=== PATIENT | male | born 1960 | race Caucasian/White ===

== ENCOUNTER → 2017-01-09 | Outpatient (CLI) | payer MEDICARE, MEDICAID ==
[~2017-01-09] MED LIST: ABILIFY10 MG PO; ACCUPRIL PO; ALBUTEROL-200 PUFFS/ IH; ALDACTONE 25MG25 MG PO; ALDACTONE 50MG50 MG PO; AMOXICILLIN500 M2 PO; ANTACID PO; APAP325 MG PO; ARIPIPRAZO10 MG/TABL PO; ARTIFICIAL TEAR15 M6 OP; ARTIFICIALS TEA30 ML OP; ASPIRIN 325MG325 MG PO; ASPIRIN 81MG TA81 MG PO; ATIVAN1 M1 PO; ATIVAN1 MG PO; BACTRIM DS 8001 TA1 PO; BENADRYL 25MG C25 MG PO; BUSPIRONE 5MG TA5 MG PO; CELEXA20 MG PO; CETIRIZINE10 MG PO; CIPRO 500MG TA500 MG PO; CIPROFLOXACIN500 MG PO; CITALOPRAM20 MG PO; CLARITIN 10MG T10 MG PO; CYCLOBENZAPRINE10 MG PO; DESYREL50 MG PO; DIFLUCAN200 MG PO; DIPHENHYDRAMINE25 M1 PO; DOCUSATE SODIU250 M1 PO; EFFIENT10 M2 PO; FISH OIL1000 MG PO; FLOMAX 0.4MG C0.4 MG PO; FLUTICASONE 50M16 GM; FUROSEMIDE40 MG; FUROSEMIDE40 MG PO; GERI-LANTA355 ML PO; HYDROCHLOROTH12.5 M1 PO; HYDROCODONE-APA1 TA1 PO; IBUPROFEN400 MG PO; IMDUR 30MG. TAB30 MG PO; IMODIUM A-D2 MG PO; IMODIUM2 MG PO; JANUVIA50 MG PO; KEFLEX 500MG.500 MG PO; KLOR-CON M2020 ME1 PO; LASIX 20MG. TAB20 MG PO; LASIX 40MG. TAB40 MG PO; LASIX40 MG PO; LEVOTHYROXINE0.05 M2 PO; LEVOTHYROXINE0.05 MG PO; LIPITOR40 MG PO; LOPERAMIDE2 MG PO; LORATADINE 10MG10 M1 PO; LOSARTAN POTASS25 MG PO; LOSARTAN POTASS50 MG PO; LOTRISONE CREAM15 GM TP; LOVAZA1 GM PO; MAG-OX 400MG T400 MG PO; MECLIZINE 25MG25 MG PO; METFORMIN 500M500 M1 PO; METFORMIN1000 MG PO; MICARDIS40 MG PO; MIRALAX(PO17 GM/1 PA PO; MIRALAX17 GM/DOSE PO; MIRALAX17 GM/PACK PO; MUPIROCIN2% TP; MYLANTA355 ML PO; NASONEX0.05 MG/AC NS; NITROGLYCERIN0.4 MG SL; NORCO 325 MG-51 TAB PO; NYSTATIN C30 GM/TUB1 TP; NYSTATIN CREAM;15 GM EX; PANTOPRAZOLE SO40 MG PO; POTASSIUM CHLO20 ME2 PO; POTASSIUM CHLORIDE 10 MEQ PO; PRILOSEC OTC20 MG PO; PROAIR HFA0.09 MG/AC IH; PROMETHAZINE HC25 M1 PO; ROBAFEN100 MG/5 M PO; ROMYCIN5 MG/GM OP; SEROQUEL 100MG100 MG PO; SEROQUEL XR50 MG PO; SIMVASTATIN40 MG PO; SYNTHROID 0.00.05 MG PO; TELMISARTAN20 MG PO; TINACTIN TP; TOVIAZ8 MG PO; TRAMADOL 50MG T50 MG PO; TRAMADOL 512 EACH/PA PO; TRAMADOL50 M1 PO; TRAZADONE HYDR100 MG PO; TRAZODONE 50MG50 MG; TRAZODONE100 MG PO; TRIAMTERENE AND1 TA1 PO; TYLENOL 8 HOUR650 MG PO; TYLENOL ES500 MG PO; VENTOLIN H0.09 MG/AC IH; WELLBUTRIN SR200 MG PO; WELLBUTRIN XL300 MG PO; ZYRTEC10 M2 PO; [UNRECOGNIZED DRUG - OTHER] PO
[2017-01-09 09:40] LABS: URINE BILIRUBIN - DIPSTICK NEGATIVE (NEG); URINE BLOOD NEGATIVE (NEG)
[2017-01-09 09:51] LABS: URINE SQUAMOUS CELLS OCC #/hpf (OCC)
== END ==
LOC: LAB 09:31
PROVIDERS: Emergency Medicine
DX: R06.02 Shortness of breath (principal); Z74.09 Other reduced mobility

== ENCOUNTER → 2017-04-07 | Outpatient (CLI) | payer MEDICARE, MEDICAID ==
[2017-04-07 21:19] LABS: URINE BILIRUBIN - DIPSTICK NEGATIVE (NEG); URINE BLOOD NEGATIVE (NEG)
[2017-04-07 22:13] LABS: URINE SQUAMOUS CELLS OCC #/hpf (OCC)
== END ==
LOC: LAB 21:01
PROVIDERS: Emergency Medicine
DX: N39.0 Urinary tract infection, site not specified (principal)

== ENCOUNTER → 2017-04-09 | Outpatient (CLI) | payer MEDICARE, MEDICAID ==
[2017-04-09 10:05] LABS: STOOL OCCULT BLOOD POSITIVE (NEG)
== END ==
LOC: LAB 09:14
PROVIDERS: Emergency Medicine
DX: D64.9 Anemia, unspecified (principal)
CPT/HCPCS: G0328

== ENCOUNTER → 2017-05-08 | Outpatient (CLI) | payer MEDICARE, MEDICAID ==
--- NOTE | 2017-05-10 08:47 | RADIOLOGY REPORT PS360 ---
UGI SERIES W/SMALL BOWEL COMPARISON: None HISTORY: Anemia, possible blood in stool TECHNIQUE: Fluoroscopy while swallowing barium FINDINGS: The patient cannot stand upright and the study was performed with the patient approximately 30 degrees upright on the radiographic table. The swallowing function and solid motility were normal. There is no hiatal hernia or reflux seen. The stomach is well-distended with barium and air and shows no intrinsic abnormality. The duodenal bulb and duodenal sweep appear normal. There is normal transit time of barium through the small bowel. There is a normal fold pattern of the small bowel. Palpation of the small bowel show no areas of tenderness. The terminal ileum was somewhat difficult to visualize due to overlapping loops of distal small bowel but no gross abnormality is noted. There are multiple surgical clips in the suprapubic area and overlying the symphysis pubis. IMPRESSION: Grossly normal upper GI series and small bowel follow-through.
== END ==
LOC: RAD 09:47
DX: D64.9 Anemia, unspecified (principal); R19.5 Other fecal abnormalities

== ENCOUNTER 2017-05-09 19:08 | Emergency (ER) | payer MEDICARE, MEDICAID ==
[~2017-05-09] VITALS: Ht 157.5 cm; Wt 113.4 kg
[2017-05-09 19:45] LABS: URINE BILIRUBIN - DIPSTICK NEGATIVE (NEG); URINE BLOOD NEGATIVE (NEG)
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
[2017-05-09 21:02] LABS: LYMPH # 1.9 K/mm3 (0.7-4.5); LYMPH % 13.5 % (10-50)
[2017-05-09 21:09] LABS: HEMOGLOBIN 10.1 g/dL (14.1-18.0)
[2017-05-09] MEDS ORDERED: CIPRO 500MG TA500 MG PO (22:12)
[2017-05-09 22:27] VITALS: BP 119/64
--- NOTE | 2017-05-10 08:36 | RADIOLOGY REPORT PS360 ---
CT ABD PELVIS W/O CONTRAST COMPARISON: CT scan abdomen pelvis 01/23/2015 HISTORY: Generalized abdominal pain, anemia TECHNIQUE: Multiaxial scans obtained from hemidiaphragms the pelvic floor and were performed without IV or oral contrast. Sagittal and coronal reformats were evaluated as well. FINDINGS: The lower lung mijares are clear. Cardiac size is normal, there is coronary artery calcification. There is borderline hepatomegaly but no focal lesions are seen. Stomach spleen [place] gallbladder appear grossly normal. The adrenal glands are normal. The kidneys are lower limits of normal in size with a tiny exophytic and likely solid nodule arising from the lower pole left kidney measuring 0.9 cm in size and consider follow-up ultrasound for better evaluation. There is moderate barium remaining in the colon from the recent upper GI series causing streak artifact crossing the abdomen. The small bowel appears grossly normal. I do not definitely identify the appendix but there are no pericecal inflammatory changes. The bladder is partially decompressed. There are surgical clips in the suprapubic location likely from previous hernia repair surgery. There is a tiny umbilical hernia containing fat only. There is very minor likely old compression of T8 vertebral body. IMPRESSION: 1. Tiny and likely solid nodule lower pole left kidney and suggest follow-up ultrasound. 2. Somewhat less than satisfactory evaluation of small bowel and colon in view of the retained barium within the colon causing streak artifact but I can identify no obvious etiology for the patient's anemia on this study. I basically agree with the [facility] report.
--- OUTSIDE RECORDS SUMMARY | 2017-05-17 17:14 | External Medical Summary Rpt | CCD ---
Author Author , GRAHAM Organization GRAHAM Address Unknown Phone [email or web address] Care Team Providers Care Range Management Specialist Name Role Phone [facility], [facility] Unavailable Unavailable [facility], [facility] Unavailable Unavailable RADHA BOY, RADHA Unavailable Unavailable BOY [facility] Unavailable Unavailable PHYSICANS M, [facility] M LEAL, LEAL Unavailable Unavailable [facility] Unavailable Unavailable [facility]OC[facility], [facility] Unavailable Unavailable ASSOCI[facility], [facility] DESMOND CARLOS, Unavailable Unavailable DESMOND CARLOS ANJUR-KAPALI DAY, Unavailable Unavailable ANJUR-KAPALI DAY MAGDALENA FAD, MAGDALENA FAD Unavailable Unavailable [facility] Un[facility] [place] [place] BEINEKE GILMA, BEINEKE Unavailable Unavailable GILMA BESSON, BESSON Unavailable Unavailable BESSON JEANIE, BESSON Unavailable Unavailable JEANIE BESSON JEANIE, BESSON Unavailable Unavailable JEANIE ORDONEZ, ORDONEZ Unavailable Unavailable ORDONEZ ALL, ORDONEZ ALL Unavailable Unavailable BRAUDIS JAM, BRAUDIS Unavailable Unavailable JAM BRAUDIS JAM, BRAUDIS Unavailable Unavailable JAM [facility] Unavailable Unavailable SERVICE, [facility] Unavailable Unavailable SERVICE, [facility] DOBSON LAR, DOBSON LAR Unavailable Unavailable Sheridan GEORGE MD Unavailable Unavailable [facility], Sheridan GEORGE MD [facility] Unavailable Unavailable CONSULTANTS O, [facility] Unavailable Unavailable [facility], [facility] CHIPPS SUNITHA & Unavailable Unavailable DUBILIER, [facility] SUNITH[facility] DUBILIER [facility], Unavailable Unavailable [facility] Unavailable Unavailable [facility], [facility] Unavailable Unavailable [facility], [facility] DOM IVERSON MERLE, ZAYRA MERLE Unavailable Unavailable DEL JR MARCY, DEL Unavailable Unavailable JR MARCY [facility] Unavailable Unavailable [facility], [facility] ALEISHA KIERAN, Unavailable Unavailable ALEISHA KIERAN MARIANNE VISION, Unavailable Unavailable MARIANNE VISION QUINTERO ERNST, Unavailable Unavailable QUINTERO ERNST QUINTERO ERNST, Unavailable Unavailable QUINTERO ERNST [facility], Unavailable Unavailable [facility] VINH DYLAN, Unavailable Unavailable VINH DYLAN [facility] Unavailable Unavailable LLC, [facility] Unavailable Unavailable DIAGNOSTIC SE, [facility] Unavailable Unavailable [facility]AGNOSTIC [facility], [facility] FALLUJI TATUM, FALLUJI Unavailable Unavailable [facility] Unavailable Unavailable [place] [facility], [facility] [place] [facility] Unavailable Unavailable SERVBLUEGRAS, [facility] Unavailable Unavailable TRANSPORTATION SER, [facility] AURY, AURY Unavailable Unavailable AURY ARMANDO, AURY Unavailable Unavailable ARMANDO AURY ARMANDO, AURY Unavailable Unavailable ARMANDO [facility] Unavailable Unavailable INC, [facility] Unavailable Unavailable H[facility]PITAL, [facility] Unavailable Unavailable HOSPITAL P, [facility] HEEB CHR, HEEB CHR Unavailable Unavailable [facility], [facility] Unavailable Unavailable [facility], [facility] Unavailable [facility]available [facility], Unavailable Unavailable [facility] Unavailable Unavailable IMAGING ASS, [facility] KIERRA THO, KIERRA THO Unavailable Unavailable [facility] BRYANT, BRYANT Unavailable Unavailable BRYANT DEUCE, BRYANT Unavailable Unavailable DEUCE CHRIS EHSAN, CHRIS Unavailable Unavailable EHSAN HAROLDO JR DWI, HAROLDO Unavailable Unavailable JR DWI HAROLDO JR DWI, HAROLDO Unavailable Unavailable JR DWI [facility] Unavailable Unavailable 11, [facility], Unavailable Unavailable [facility] Unavailable Unavailable ACTION, [facility] Kenya Patrick MD, Unavailable Unavailable Kenya BURRIS, Unavailable Unavailable ELENI KNOWLES JAM, Unavailable Unavailable KNOWLES JAM BENAVIDES, BENAVIDES Unavailable Unavailable BENAVIDES JAM, Unavailable Unavailable BENAVIDES JAM [facility] Unavailable Unavailable [facility], [facility] Unavailable Unavailable MEDICAL, [facility] Unavailable Unavailable SERVICE, [facility] MONOHAN RONALD, MONOHAN Unavailable Unavailable RONALD SIEGEL JUAQUIN, SIEGEL Unavailable Unavailable JUAQUIN ONDINA, ONDINA Unavailable Unavailable ONDINA SHA, ONDINA Unavailable Unavailable SHA NEILS JONATHAN, NEILS JONATHAN Unavailable Unavailable [facility] Unavailable Unavailable [facility], [facility] Unavailable Unavailable [facility], [facility] Unavailable Unavailable [facility]ATORY, [facility], Unavailable Unavailable PLL[facility], [facility] RODRIGUEZ, III OANH, Unavailable Unavailable RODRIGUEZ, III OANH PETTEY, PETTEY Unavailable Unavailable PETTEY JAM, PETTEY Unavailable Unavailable JAM [facility], Unavailable [facility]available [facility], Unavailable Unavailable [facility] PUND CHR, PUND CHR Unavailable Unavailable MIRA MARCY, MIRA Unavailable Unavailable MARCY [facility], Unavailable Unavailable [facility] MEREDITH, MEREDITH Unavailable Unavailable MEREDITH MAT, Unavailable Unavailable MEREDITH MAT EBONI Rose, EBONI Rose Unavailable Unavailable SKRIP JR., SKRIP JR. Unavailable Unavailable SKRIP JR. SELVIN, SKRIP Unavailable Unavailable JR. SELVIN [facility] Unavailable Unavailable [facility], [facility] Un[facility] Unavailable TREATMENT A, [facility] Unavailable Unavailable EMERGENCY PH[facility], [facility]available [facility]available [facility], Unavailable Unavailable [facility] Unavailable Unavailable CLINIC, [facility] CL[facility]IC [facility] Unavailable Unavailable SURGERY C, [facility] Unavailable Unavailable HOSPITALS, [facility], Unavailable Unavailable [facility] WEHRMAN III MARCY, Unavailable Unavailable WEHRMAN III MARCY ZEKE BAR, ZEKE BAR Unavailable Unavailable ZEKE BAR, ZEKE BAR Unavailable Unavailable KALINA A, Unavailable Unavailable KALINA A Purpose Continuity of Care Document - 12-28-2010 through 2016 Problems Code Diagnosis DOS Provider Status D649 ANEMIA 04-11-2017 [facility] N390 URINARY 04-07-2017 [facility] TRACT [facility] INFECTION INC SITE NOT SPECIFIED I2510 ASHD KAKTOVIK 04-06-2017 [facility] COR[facility]ALTH[facility]ARE ARTERY W/O ANGINA PECTORIS R627 ADULT 04-06-2017 [facility] FAILURE TO HEALTH THRIVE ASSOCIATES G4733 OBSTRUCTIVE 04-04-2017 [facility] SLEEP [facility] APNEA ADULT INC PEDIATRIC I509 HEART 04-04-2017 [facility] FAILURE [facility] UNSPECIFIED INC J449 CHRONIC 04-04-2017 [facility] OBSTRUCTIVE [facility] PULMONARY INC DISEASE UNS R0602 SHORTNESS 04-04-2017 [place] [facility] R1310 DYSPHAGIA 04-04-2017 [place] [facility]PEC[facility]IED [facility] IM[facility]ING ASS R5383 OTHER 04-04-2017 [facility] R942 ABNORMAL 04-04-2017 [facility] RESULTS OF [facility] PULMONARY INC FUNCTION STUDIES E162 HYPOGLYCEMI 03-27-2017 [facility] A HEALTH UNSPECIFIED ASSOCIATES Y78325 OTHER LONG 03-21-2017 [facility] CURRENT ASSOCIATES DRUG THERAPY B351 TINEA 02-05-2017 SPECIAL UNGUIUM CARE PODIATRY OF YAMIL K39149 PAIN IN 02-05-2017 SPECIAL RIGHT TOES CARE PODIATRY OF YAMIL Q52459 PAIN IN 02-05-2017 SPECIAL LEFT TOES CARE PODIATRY OF YAMIL R69 ILLNESS 01-16-2017 [facility] UNSPECIFIED TRANSPORTAT ION SER Z9989 DEPENDENCE 01-16-2017 [place] [facility] ON OTHER SERV ENABLING SendRR MACHINES & DEVICES C86281 PAIN IN 01-13-2017 [facility] RIGHT KNEE LLC R14668 PAIN IN 01-13-2017 [facility] RIGHT LEG LLC B45910 PAIN IN 01-13-2017 [facility] RIGHT LOWER LLC LEG E119 TYPE 2 01-09-2017 [facility] DIABETES HEALTH MELLITUS ASSOCIATES WITHOUT COMPLICATIO NS I10 ESSENTIAL 01-09-2017 [facility] PRIMARY HEALTH HYPERTENSIO ASSOCIATES N R4182 ALTERED 01-09-2017 [facility] MENTAL HEALTH STATUS ASSOCIATES UNSPECIFIED R531 WEAKNESS 01-09-2017 [facility] Z7409 OTHER 01-09-2017 [facility] REDUCED [facility] MOBILITY INC I517 CARDIOMEGAL 01-08-2017 [facility] Y LLC [id number] PAIN IN 01-04-2017 [place] RIGHT WRIST MEDICAL IMAGING ASS M7989 OTHER 01-04-2017 [facility] SPECIFIED MEDICAL SOFT TISSUE IMAGING ASS DISORDERS R609 EDEMA 01-04-2017 [facility] UNSPECIFIED [facility] INC I05235 PAIN IN 01-01-2017 [facility] RIGHT LLC FOREARM M7541 IMPINGEMENT 12-28-2016 [facility] SYNDROME PHYSICIANS OF RIGHT GROUP SHOULDER E6601 MORBID 12-19-2016 [facility] SEVERE PHYSICIANS OBESITY DUE GROUP TO EXCESS CALORIES E785 HYPERLIPIDE 12-19-2016 [facility] OSMANY PHYSICIANS UNSPECIFIED GROUP I119 HYPERTENSIV 12-19-2016 [facility] E HEART PHYSICIANS DISEASE GROUP WITHOUT HEART FAILURE N3000 ACUTE 12-12-2016 [facility] HEMATURIA I272 OTHER 11-27-2016 [facility] PULMONARY INC HYPERTENSIO N N3001 ACUTE 11-21-2016 [place] CYSTITIS [facility] P HEMATURIA Q49465 PAIN IN 11-16-2016 [place] RIGHT MEDICAL SHOULDER IMAGING ASS K140 GLOSSITIS 11-02-2016 [facility] PHYSICIANS GROUP R918 OTHER 10-11-2016 [facility] NONSPECIFIC LLC ABNORMAL FINDING OF LUNG FIELD R0682 TACHYPNEA 09-19-2016 [facility] NOT PHYSICIANS ELSEWHERE GROUP CLASSIFIED R072 PRECORDIAL 09-04-2016 [facility] PAIN PHYSICIANS, [facility] R0789 OTHER CHEST 09-04-2016 [facility] PA[facility] AMBULANCE SERVICE R079 CHEST PAIN 09-04-2016 [place] UNSPECIFIED [facility]ICAL IMAGING ASS Z955 PRESENCE OF 09-04-2016 [place] CORONARY [facility] P IMPLANT & GRAFT K19444 MECHANICAL 08-24-2016 [facility] PTOSIS OF SERV RIGHT FOUNDATION EYELID [id number] DERMATOCHAL 08-24-2016 [place] [facility] ASIS OF SERV RIGHT EYE FOUNDATION UNSPECIFIED EYELID H53632 DERMATOCHAL 08-24-2016 [place] [facility] OF SERV LEFT EYE FOUNDATION UNSPECIFIED EYELID G4730 SLEEP APNEA 06-07-2016 [facility] MEDICAL SERV UNSPECIFIED FOUNDATION E876 HYPOKALEMIA 05-29-2016 [facility] K219 GASTRO-ESOP 04-25-2016 [facility] REFLUX [facility] DISEASE [facility] P WITHOUT ESOPHAGITIS O07464 SPONDYLOSIS 04-04-2016 [place] W/O MEDICAL MYELOPATH/R IMAGING ASS ADICULOPATH Y CERV RGN M5032 OTH CERV 04-04-2016 [place] DISC MEDICAL DEGENERATIO IMAGING ASS N MID-CERVICA L REGION M542 CERVICALGIA 04-04-2016 [facility] M545 LOW BACK 04-04-2016 [place] PAIN MEDICAL IMAGING ASS M546 PAIN IN 04-04-2016 [place] THORACIC MEDICAL SPINE IMAGING ASS V188ALZ UNSPECIFIED 04-04-2016 [place] INJURY OF MEDICAL NECK IMAGING ASS INITIAL ENCOUNTER M3453JN UNSPECIFIED 04-04-2016 [place] INJURY MEDICAL LOWER BACK IMAGING ASS INITIAL ENCOUNTER K449 DIAPHRAGMAT 03-03-2016 [place] IC HERNIA [facility] W/O HOSPITAL P OBSTRUCTION OR GANGRENE S35413 PERSONAL 03-03-2016 [place] [facility] P DEPENDENCE I208 OTHER FORMS 02-25-2016 [facility] OF ANGINA PHYSICIANS PECTORIS GROUP U59186 ASHD KAKTOVIK 02-25-2016 [facility] COR ART PHYSICIANS W/UNSTABLE GROUP ANGINA PECTORIS E662 MORBID 02-21-2016 [facility] W/ALVEOLAR HYPOVENTILA TION T59553 [facility] KAKTOVIK 02-21-2016 [facility] ANGINA PECTORIS M654 RADIAL 02-16-2016 [facility] STYLOID [facility] TENOSYNOVIT INC IS DE QUERVAIN F83964 OTHER 02-16-2016 [facility] SYNOVITIS [facility] AND INC TENOSYNOVIT IS RIGHT HAND I209 ANGINA 12-08-2015 [place] PECTORIS REGIONAL UNSPECIFIED MEDICAL K98047 ASHD KAKTOVIK 12-08-2015 [facility] COR ART PHYSICIANS W/OTH FORMS GROUP ANGINA PECTORIS R0600 DYSPNEA 11-29-2015 [facility] UNSPECIFIED [facility] HOS[facility] INC A622A4H CONCUSSION 11-20-2015 [facility] W/LOC 30 [facility] P INITIAL ENCOUNTER [id number] UNSPECIFIED 11-20-2015 [facility] INJURY OF MEDICAL HEAD IMAGING ASS INITIAL ENCOUNTER J046ZKI STRAIN 11-20-2015 [facility] MUSCLE [facility] P NECK LEVL INIT ENC S36112A CONTUSION 11-20-2015 [facility] UNS BACK [facility] P INITIAL ENCOUNTER Z043 ENCOUNTER 11-20-2015 [place] EXAM & MEDICAL OBSERVATION IMAGING ASS FOLLOW OT ACCIDENT R339 RETENTION 07-12-2015 AUGUSTINSON JEANIE OF URINE UNSPECIFIED Q67960 PAIN IN 06-30-2015 [place] LEFT MEDICAL FINGERS IMAGING ASS G0971JK UNSPECIFIED 06-30-2015 [facility] INJURY LT MEDICAL WRIST HAND IMAGING ASS FINGERS INITIAL B353 TINEA PEDIS 06-08-2015 [facility] INC 41768 OBSTRUCTIVE 05-04-2015 [facility] [place] [address] UNSPEC HTN 05-04-2015 [facility] HEART LAR DISEASE CONSULTANTS WITHOUT O HEART FAIL 21838 COR 05-04-2015 [facility] ATHEROSLERO [facility] UNSPEC INC TYPE VESSEL KAKTOVIK/MAHSA T 4160 PRIMARY 05-04-2015 [facility] PULMONARY LAR HYPERTENSIO CONSULTANTS N O 4168 OTHER 05-04-2015 [facility] CHRONIC [facility] PULMONARY INC HEART DISEASES 496 CHRONIC 05-04-2015 [facility] AIRWAY [facility] OBSTRUCTION INC NEC 08976 05-04-2015 [facility] ION SER V7284 UNSPECIFIED 05-04-2015 [facility] PRE-OPERATI INC VE EXAMINATION 3699 UNSPECIFIED 04-28-2015 [facility] LOSS 34126 UNSPECIFIED 04-28-2015 [facility] EYELID V7283 OTHER 04-28-2015 [facility] PRE-OPERATI VE EXAMINATION 63686 ACUTE 02-16-2015 [facility] RESPIRATORY FAILURE 4111 INTERMEDIAT 01-25-2015 [facility] E CORONARY LAR SYNDROME CONSULTANTS O 4293 CARDIOMEGAL 01-23-2015 [place] Y [facility] 5920 CALCULUS OF 01-23-2015 [facility] KIDNEY [facility] 35045 UNSPECIFIED 01-23-2015 [place] RETENTION MEDICAL OF URINE IMAGING ASS 43377 ABDOMINAL 01-23-2015 [place] PAIN RIGHT MEDICAL LOWER IMAGING ASS QUADRANT 79163 PAIN IN 01-03-2015 [place] JOINT MEDICAL PELVIC IMAGING ASS REGION AND THIGH 38710 DISPLCMT 01-03-2015 [place] THOR MEDICAL INTERVERT IMAGING ASS DISC WITHOUT MYELOPATHY 7231 CERVICALGIA 01-03-2015 [facility] 7241 PAIN IN 01-03-2015 [place] THORACIC MEDICAL SPINE IMAGING ASS 35347 CHEST PAIN 01-03-2015 [place] UNSPECIFIED [facility]ICAL IMAGING ASS 48591 HYPERTENSIV 12-28-2014 [facility] E HEART [facility] DISEASE INC UNSPEC W/HEART FAIL 4280 CONGESTIVE 12-28-2014 [facility] HEART [facility] FAILURE INC UNSPECIFIED 94866 ESOPHAGEAL 12-28-2014 [facility] REFLUX [facility] INC 36713 SHORTNESS 12-28-2014 [place] OF BREATH MEDICAL IMAGING ASS 69279 OTHER 12-18-2014 [facility] DYSPNEA AND [place] [address] MECHANICAL 04-01-2014 [place] [facility] 2449 UNSPECIFIED 03-18-2014 [facility] HYPOTHYROID INC ISM 77188 PANNUS 02-18-2014 [facility] 5950 ACUTE 12-18-2013 [place] CYSTITIS [facility] P 01217 NOCTURNAL 12-18-2013 [place] ENURESIS [facility] P 47137 OTHER 11-24-2013 [facility] BEATRIZ MUCOPURULEN T CONJUNCTIVI TIS 46434 UNSPECIFIED 10-02-2013 [place] URINARY [facility] P E 3831 CHRONIC 09-05-2013 [place] MASTOIDITIS MEM HOSP INC 3839 UNSPECIFIED 09-05-2013 [facility] HOSP MASTOIDITIS INC 80727 UNSPECIFIED 09-05-2013 [place] OTALGIA [facility] INC 470 DEVIATED 09-05-2013 [place] NASAL MEDICAL SEPTUM IMAGING ASS 58236 OTHER 09-05-2013 [place] DISEASES OF MEDICAL NASAL IMAGING ASS CAVITY AND SINUSES 81236 ARTHRALGIA 09-05-2013 [facility] OF [facility]OS[facility] TEMPOROMAND INC IBULAR JOINT 70371 PAIN IN 08-15-2013 [facility] JOINT, PHYSICIANS FOREARM GROUP 65412 PAIN IN 08-15-2013 [place] JOINT, MEM [facility] LOWER LEG INC 36425 PLICA 08-15-2013 [facility] SYNDROME PHYSICIANS GROUP 3540 CARPAL 06-23-2013 [place] TUNNEL [facility] H[facility] SYNDROME INC V5869 LONG-TERM 06-23-2013 [place] (CURRENT) [facility] USE OF INC OTHER MEDICATIONS 2724 OTHER AND 05-23-2013 [facility] P HYPERLIPIDE OSMANY 5180 PULMONARY 05-23-2013 [place] COLLAPSE [facility] ASS 32852 ACUTE 05-08-2013 KNOW[facility] FOLLICULAR JAM CONJUNCTIVI TIS 38849 CONTACT AND 05-08-2013 [facility] ALLERGIC JAM DERMATITIS OF EYELID 85858 VITREOUS 05-08-2013 EL[facility] DEGENERATIO JAM N 3688 OTHER 04-16-2013 [facility] SPECIF[facility]UAL [facility] [place] DISTURBANCE S 7820 DISTURBANCE 04-16-2013 [facility] OF SKIN NEUROLOGY SENSATION [facility] [place] 1101 DERMATOPHYT 04-11-2013 RAMÍREZ BURRIS OSIS OF NAIL 37045 ATHEROSCLER 04-11-2013 RAMÍ[facility] BURRIS OSIS K[place]OVIK ART EXTREMITIES UNSPEC 7011 ACQUIRED 04-11-2013 RAMÍREZ BURRIS KERATODERMA 7295 PAIN IN 04-11-2013 RAMÍREZ BURRIS SOFT TISSUES OF LIMB 89826 SPONDYLOSIS 03-19-2013 [place] UNSPEC MEDICAL SITE W/O IMAGING ASS MENTION MYELOPATHY 7238 OTHER 03-19-2013 [place] SYNDROMES MEDICAL AFFECTING IMAGING ASS CERVICAL REGION 55785 DIAB W/O 02-13-2013 [facility] COMP TYPE [facility] II/UNS NOT INC STATED UNCNTRL 71432 BARRETTS 02-13-2013 [facility] ESOPHAGUS SUNITHA & DUBILIER 7871 HEARTBURN 02-13-2013 [facility] INC 38879 ONYCHIA AND 02-06-2013 [facility] PARONYCHIA AND ANKLE OF TOE CENTER 7030 INGROWING 02-06-2013 [facility] NAIL AND ANKLE CENTER 340 MULTIPLE 01-30-2013 [facility] 4149 UNSPECIFIED 01-30-2013 [place] CHRONIC [facility]ITAL HEART DISEASE 55513 OTHER 01-30-2013 [place] CONVULSIONS [facility] 47587 UNSPECIFIED 01-30-2013 [place] SLEEP [facility] [phone] 01-16-2013 [place] HEMATURIA, [facility] 782.0 782.0 SKIN 01-16-2013 [place] SENSATION [facility] DISTURB Hospital 786.05 786.05 01-16-2013 [place] SHORTNESS [facility] Hospital 79151 HEMATURIA 01-15-2013 [facility] P 39915 ABDOMINAL 01-15-2013 [facility] PAIN, AMBULANCE UNSPECIFIED SERVICE SITE 48240 PUNCTATE 01-08-2013 [facility] N EMERGENCY PHYSI 35092 BLEPHARITIS 01-08-2013 [facility] UNSPECIFIED V7644 SPECIAL 11-13-2012 COMBINED SCREENING PHYSICIANS MALIGNANT LA NEOPLASM OF PROSTATE 5990 URINARY 11-11-2012 COMBINED TRACT PHYSICIANS INFECTION LA SITE NOT SPECIFIED 4019 UNSPECIFIED 10-28-2012 [facility] ESSENTIAL CARDIOLOGY HYPERTENSIO CLINIC N 63630 CORONARY 10-28-2012 [facility] ATHEROSCLER CARDIOLOGY OSIS [facility] CLINIC CORONARY ARTERY 97558 PAIN IN 10-27-2012 [facility] JOINT, [place] [address] PAIN IN 10-27-2012 [facility] JOINT, MOBILE UPPER ARM DIAGNOSTIC SE 7823 EDEMA 09-19-2012 BRAUDIS JAM 21997 DIVERTICULO 08-08-2012 [facility] SIS OF [facility]OS[facility] COLON INC 5693 HEMORRHAGE 08-08-2012 [facility] OF RECTUM [facility] AND ANUS INC V160 FM HX 08-01-2012 C ANTONETTE MALIGNANT DORIS NEOPLASM PSC GASTROINTES TINAL TRACT V7651 SPECIAL 08-01-2012 C ANTONETTE SCREENING DORIS FOR PSC MALIGNANT NEOPLASMS COLON 4139 OTHER AND 03-25-2012 HAROLDO MARTINEZ UNSPECIFIED DWI ANGINA PECTORIS 5533 DIAPHRAGMAT 03-10-2012 [place] MARTHA W/O MEDICAL MENTION IMAGING ASS OBSTRUCTION /GANGREN 5718 OTHER 03-10-2012 [place] CHRONIC MEDICAL NONALCOHOLI IMAGING ASS C LIVER DISEASE 5939 UNSPECIFIED 03-10-2012 [place] DISORDER MEDICAL OF KIDNEY IMAGING ASS AND URETER 7881 DYSURIA 03-07-2012 [facility] INC 4589 UNSPECIFIED 03-04-2012 WEHRMAN III MARCY HYPOTENSION 5849 ACUTE 03-04-2012 WEHRMAN III KIDNEY MARCY FAILURE UNSPECIFIED 7224 DEGENERATIO 01-25-2012 [place] N OF MEDICAL CERVICAL IMAGING ASS INTERVERTEB RAL DISC 7842 SWELLING 01-25-2012 WEHRMAN III MASS OR MARCY LUMP IN HEAD AND NECK 7856 ENLARGEMENT 01-25-2012 [place] OF LYMPH MEDICAL NODES IMAGING ASS 41913 DYSPHAGIA 01-25-2012 [facility] UNSPECIFIED AMBULANCE SERVICE 1122 CANDIDIASIS 01-11-2012 [facility] MARCY OF OTHER UROGENITAL SITES 01511 OTHER 01-11-2012 [facility] CANDIDIASIS [facility] OF OTHER INC SPECIFIED SITES 7912 HEMOGLOBINU 01-11-2012 [facility] SH[facility]ON AMBULANCE SERVICE 09096 NONSPECIFIC 09-11-2011 [facility] BAR ABNORMAL ELECTROCARD IOGRAM 46537 HYPERSOMNIA 07-18-2011 [facility] WITH SLEEP ERNST APNEA UNSPECIFIED 19642 ABDOMINAL 07-04-2011 [facility] PAIN, AMBULANCE PERIUMBILIC SERVICE 6010 ACUTE 07-03-2011 [facility] ARMANDO PROSTATITIS 6019 UNSPECIFIED 07-03-2011 [facility] HOSP PROSTATITIS INC 79113 ASTHMA, 06-14-2011 BESSON JEANIE UNSPECIFIED , UNSPECIFIED STATUS 52953 OTHER CHEST 06-14-2011 [facility] JEANIE PAIN 74105 OTHER 06-13-2011 [place] NONSPECIFIC MEDICAL ABNORMAL IMAGING ASS FINDING OF LUNG FIELD 33854 MORBID 05-31-2011 [facility] MED[facility] OBESITY SERV FOUNDATIO 4778 ALLERGIC 05-31-2011 ID MEDICAL RH[facility] SERV DUE TO FOUNDATIO OTHER ALLERGEN [id number] APNEA 05-31-2011 [facility] 7019 UNSPECIFIED 05-19-2011 [facility] HYPERTROPHI LABORATORY C&ATROPHIC CONDITION SKIN 5210 DENTAL 05-16-2011 THE IMPLANT CARIES & ORAL SURGERY C 27275 UNSPECIFIED 05-08-2011 [facility] BLEPHAROCON JUNCTIVITIS 7862 COUGH 04-26-2011 [employer] 52192 UNSPECIFIED 03-30-2011 [facility] [place] CONJUNCTIVI URGENT TIS TREAT 26442 PAIN IN 03-30-2011 [facility], HAND [facility]BILE DIAGNOSTIC SE 6961 OTHER 03-23-2011 [facility] [place] PSORIASIS URGENT AND SIMILAR TREATMENT A DISORDERS 92101 OBESITY, 03-12-2011 [facility] [place] UNSPECIFIED URGENT TREATMENT A 72188 INSOMNIA 03-12-2011 [place] UNSPECIFIED URGENT TREATMENT A 514 PULMONARY 03-02-2011 [facility] AND DIAGNOSTIC HYPOSTASIS SE 7242 LUMBAGO 02-25-2011 [place] URGENT TREATMENT A 7245 UNSPECIFIED 02-10-2011 [facility] V771 SCREENING 02-10-2011 [facility] DI[facility]ET[facility] [place] PS MELLITUS 5968 OTHER 12-28-2010 [facility] [place] SPECIFIED RADIOLOGY DISORDERS OF BLADDER 49011 DIARRHEA 12-28-2010 [facility] Allergies, Adverse Reactions, Alerts Type Drug Allergy Adverse Reaction to Substance Substance Reaction Severity Nitroglycerin NA-NAUSEA Mild Morphine NA-NAUSEA Mild Clinical Alert Notifications Alert Diabetes: no eye exam in the last 365 days Diabetes: no influenza vaccine in the last 365 days Medications Na ND Rx Da Fi Fi Am Da Di Ph RX Ph St me C No te ll ll ou ys ag ar # ys at rm s nt no ma ic us Or Da si cy ia de te s n re d SM 49 10 10 0 29 1 ME 15 GA Ac 34 -0 -0 60 D 08 IN ti MA 80 6- 6- .0 CA 65 EY ve GN 50 20 20 00 RE 32 ES 44 17 17 GA IU 9 PH CH M AR AE CI MA L TR CY S AT E LL SO C BRYAN TI ON ST 00 03 10 0 30 30 ME 15 GA Ac OO 53 -1 -0 0. D 04 IN ti L 61 9- 2- 00 CA 39 EY ve SO 06 20 20 0 RE 09 FT 41 17 17 GA EN 0 PH CH ER AR AE MA L 25 CY S 0 MG LL C SO FT GE L LO 00 03 10 0 30 30 ME 15 GA Ac RA 78 -1 -0 0. D 04 IN ti TA 15 9- 2- 00 CA 39 EY ve DI 07 20 20 0 RE 10 NE 70 17 17 GA 1 PH CH 10 AR AE MA L MG CY S TA LL BL C ET BRYAN 00 03 09 0 30 7 ME 15 GA Ac BR 90 -1 -2 0. D 04 IN ti IC 46 8- 9- 00 CA 01 EY ve AT 32 20 20 0 RE 54 IN 94 17 17 GA G [address] AR AE US MA L CY S 0. 5% LL C EY E DR PS 00 03 09 0 30 30 ME 15 GA Ac PI 90 -1 -2 0. D 00 IN ti RI 46 9- 6- 00 CA 60 EY ve N 28 20 20 0 RE 67 81 88 17 17 GA 9 PH CH MG AR AE MA L CH CY S EW AB LL LE C TA BL ET AC 00 03 09 0 35 15 ME 14 GA Ac ID 90 -0 -1 50 D 96 IN ti 47 4- 5- .0 CA 35 EY ve GO 72 20 20 00 RE 99 NE 71 17 17 GA 4 PH CH AN AR AE TA MA L CI CY S D LI LL QU C ID MA 00 06 09 0 30 30 ME 14 GA Ac GN 60 -2 -1 0. D 94 IN ti ES 30 1- 5- 00 CA 75 EY ve IU 20 20 20 0 RE 67 M 92 17 17 GA OX 2 PH CH ID AR AE E MA L 40 CY S 0 MG LL C TA BL ET ST 00 03 09 0 30 30 ME 14 GA Ac OO 53 -1 -0 0. D 87 IN ti L 61 9- 2- 00 CA 29 EY ve SO 06 20 20 0 RE 28 FT 41 17 17 GA EN 0 PH CH ER AR AE MA L 25 CY S 0 MG LL C SO FT GE L LO 00 03 09 0 30 30 ME 14 GA Ac RA 78 -1 -0 0. D 87 IN ti TA 15 9- 2- 00 CA 29 EY ve DI 07 20 20 0 RE 29 NE 70 17 17 GA 1 PH CH 10 AR AE MA L MG CY S TA LL BL C ET 00 03 08 0 30 30 ME 14 GA Ac PI 90 -1 -2 0. D 83 IN ti RI 46 9- 8- 00 CA 86 EY ve N 28 20 20 0 RE 95 81 88 17 17 GA 9 PH CH MG AR AE MA L CH CY S EW AB LL LE C TA BL ET BRYAN 00 03 08 0 30 7 ME 14 GA Ac BR 90 -1 -2 0. D 82 IN ti IC 46 8- 4- 00 CA 01 EY ve AT 32 20 20 0 RE 42 IN 94 17 17 GA G [address] AR AE US MA L CY S 0. 5% LL C EY E DR PS BRYAN 00 03 08 0 30 7 ME 14 GA Ac BR 90 -1 -1 0. D 79 IN ti IC 46 8- 8- 00 CA 87 EY ve AT 32 20 20 0 RE 03 IN 94 17 17 GA G [address] AR AE US MA L CY S 0. 5% LL C EY E DR PS MA 00 06 08 0 30 30 ME 14 GA Ac GN 60 -2 -1 0. D 77 IN ti ES 30 1- 6- 00 CA 18 EY ve IU 20 20 20 0 RE 99 M 92 17 17 GA OX 2 PH CH ID AR AE E MA L 40 CY S 0 MG LL C TA BL ET ST 00 03 08 0 30 30 ME 14 GA Ac OO 53 -1 -0 0. D 70 IN ti L 61 9- 4- 00 CA 77 EY ve SO 06 20 20 0 RE 91 FT 41 17 17 GA EN 0 PH CH ER AR AE MA L 25 CY S 0 MG LL C SO FT GE L LO 00 03 08 0 30 30 ME 14 GA Ac RA 78 -1 -0 0. D 70 IN ti TA 15 9- 4- 00 CA 77 EY ve DI 07 20 20 0 RE 92 NE 70 17 17 GA 1 PH CH 10 AR AE MA L MG CY S TA LL BL C ET 00 03 07 0 30 30 ME 14 GA Ac PI 90 -1 -3 0. D 69 IN ti RI 46 9- 1- 00 CA 21 EY ve N 28 20 20 0 RE 07 81 88 17 17 GA 9 PH CH MG AR AE MA L CH CY S EW AB LL LE C TA BL ET BRYAN 00 03 07 0 30 7 ME 14 GA Ac BR 90 -1 -2 0. D 68 IN ti IC 46 8- 9- 00 CA 73 EY ve AT 32 20 20 0 RE 52 IN 94 17 17 GA G [address] AR AE US MA L CY S 0. 5% LL C EY E DR PS MA 00 06 07 0 30 30 ME 14 GA Ac GN 60 -2 -1 0. D 63 IN ti ES 30 1- 9- CA 33 EY ve IU 20 20 20 0 RE 43 M 92 17 17 GA OX 2 PH CH ID AR AE E MA L 40 CY S 0 MG LL C TA BL ET AC 00 03 07 0 35 15 ME 14 GA Ac ID 90 -0 -1 50 D 62 IN ti 47 4- 8- .0 CA 01 EY ve GO 72 20 20 00 RE 68 NE 71 17 17 GA 4 PH CH AN AR AE TA MA L CI CY S D LI LL QU C ID BRYAN 00 03 07 0 30 7 ME 14 GA Ac BR 90 -1 -1 0. D 60 IN ti IC 46 8- 5- 00 CA 60 EY ve AT 32 20 20 0 RE 69 IN 94 17 17 GA G [address] AR AE US MA L CY S 0. 5% LL C EY E DR PS ST 00 03 07 0 30 30 ME 14 GA Ac OO 53 -1 -0 0. D 53 IN ti L 61 9- 6- 00 CA 43 EY ve SO 06 20 20 0 RE 01 FT 41 17 17 GA EN 0 PH CH ER AR AE MA L 25 CY S 0 MG LL C SO FT GE L LO 00 03 07 0 30 30 ME 14 GA Ac RA 78 -1 -0 0. D 53 IN ti TA 15 9- 6- 00 CA 43 EY ve DI 07 20 20 0 RE 02 NE 70 17 17 GA 1 PH CH 10 AR AE MA L MG CY S TA LL BL C ET 00 03 07 0 30 30 ME 14 GA Ac PI 90 -1 -0 0. D 50 IN ti RI 46 9- 3- 00 CA 60 EY ve N 28 20 20 0 RE 43 81 88 17 17 GA 9 PH CH MG AR AE MA L CH CY S EW AB LL LE C TA BL ET BRYAN 00 03 06 0 30 7 ME 14 GA Ac BR 90 -1 -3 0. D 50 IN ti IC 46 8- 0- 00 CA 79 EY ve AT 32 20 20 0 RE 90 IN 94 17 17 GA G [address] AR AE US MA L CY S 0. 5% LL C EY E DR PS BRYAN 00 03 06 0 30 7 ME 14 GA Ac BR 90 -1 -1 0. D 42 IN ti IC 46 8- 7- 00 CA 66 EY ve AT 32 20 20 0 RE 58 IN 94 17 17 GA G [address] AR AE US MA L CY S 0. 5% LL C EY E DR PS AC 00 03 06 0 35 15 ME 14 GA Ac ID 90 -0 -1 50 D 41 IN ti 47 4- 6- .0 CA 27 EY ve GO 72 20 20 00 RE 46 NE 71 17 17 GA 4 PH CH AN AR AE TA MA L CI CY S D LI LL QU C ID ST 00 03 06 0 30 30 ME 14 GA Ac OO 53 -1 -0 0. D 33 IN ti L 61 9- 7- 00 CA 82 EY ve SO 06 20 20 0 RE 41 FT 41 17 17 GA EN 0 PH CH ER AR AE MA L 25 CY S 0 MG LL C SO FT GE L LO 00 03 06 0 30 30 ME 14 GA Ac RA 78 -1 -0 0. D 33 IN ti TA 15 9- 7- 00 CA 82 EY ve DI 07 20 20 0 RE 42 NE 70 17 17 GA 1 PH CH 10 AR AE MA L MG CY S TA LL BL C ET RO 00 03 06 0 47 10 ME 14 GA Ac BA 90 -1 -0 30 D 33 IN ti FE 40 9- 5- .0 CA 30 EY ve N 06 20 20 00 RE 41 10 11 17 17 GA 0 6 PH CH MG AR AE /5 MA L CY S ML LL SY C RU P 00 03 06 0 30 30 ME 14 GA Ac PI 90 -1 -0 0. D 31 IN ti RI 46 9- 3- 00 CA 43 EY ve N 28 20 20 0 RE 67 81 88 17 17 GA 9 PH CH MG AR AE MA L CH CY S EW AB LL LE C TA BL ET MA 00 03 06 0 30 5 ME 14 GA Ac PA 90 -1 -0 0. D 31 IN ti P 41 9- 2- 00 CA 57 EY ve 50 98 20 20 0 RE 45 0 86 17 17 GA MG 1 PH CH AR AE TA MA L BL CY S ET LL C MA 00 12 05 0 30 30 ME 14 GA Ac GN 60 -0 -2 0. D 24 IN ti ES 30 3- 4- 00 CA 08 EY ve IU 20 20 20 0 RE 98 M 92 16 17 GA OX 2 PH CH ID AR AE E MA L 40 CY S 0 MG LL C TA BL ET BRYAN 00 03 05 0 50 7 ME 14 GA Ac BR 90 -1 -2 0. D 23 IN ti IC 46 8- 2- 00 CA 59 EY ve AT 32 20 20 0 RE 61 IN 95 17 17 GA G [address] AR AE US MA L CY S 0. 5% LL C EY E DR PS AC 00 03 05 0 35 15 ME 14 GA Ac ID 90 -0 -1 50 D 22 IN ti 47 4- 8- .0 CA 17 EY ve GO 72 20 20 00 RE 35 NE 71 17 17 GA 4 PH CH AN AR AE TA MA L CI CY S D LI LL QU C ID ST 00 03 05 0 30 30 ME 14 GA Ac OO 53 -1 -1 0. D 17 IN ti L 61 9- 0- 00 CA 23 EY ve SO 06 20 20 0 RE 20 FT 41 17 17 GA EN 0 PH CH ER AR AE MA L 25 CY S 0 MG LL C SO FT GE L LO 00 03 05 0 30 30 ME 14 GA Ac RA 78 -1 -1 0. D 17 IN ti TA 15 9- 0- 00 CA 23 EY ve DI 07 20 20 0 RE 21 NE 70 17 17 GA 1 PH CH 10 AR AE MA L MG CY S TA LL BL C ET BRYAN 00 03 05 0 30 7 ME 14 GA Ac BR 90 -1 -0 0. D 15 IN ti IC 46 8- 5- 00 CA 88 EY ve AT 32 20 20 0 RE 83 IN 94 17 17 GA G [address] AR AE US MA L CY S 0. 5% LL C EY E DR PS 00 03 05 0 30 30 ME 14 GA Ac PI 90 -1 -0 0. D 14 IN ti RI 46 9- 5- 00 CA 96 EY ve N 28 20 20 0 RE 45 81 88 17 17 GA 9 PH CH MG AR AE MA L CH CY S EW AB LL LE C TA BL ET MA 00 12 04 0 30 30 ME 14 GA Ac GN 60 -0 -2 0. D 09 IN ti ES 30 3- 6- 00 CA 84 EY ve IU 20 20 20 0 RE 88 M 92 16 17 GA OX 2 PH CH ID AR AE E MA L 40 CY S 0 MG LL C TA BL ET TR 45 01 04 0 85 10 ME 14 AR Ac OL 80 -1 -2 0. D 09 NO ti AM 20 4- 4- 00 CA 17 LD ve IN 35 20 20 0 RE 28 E 65 17 17 RI SA 3 PH CH LI AR AR CY MA D LA CY W TE LL 10 C % CR EA M ST 00 03 04 0 30 30 ME 14 AR Ac OO 53 -1 -1 0. D 03 NO ti L 61 9- 2- 00 CA 07 LD ve SO 06 20 20 0 RE 47 FT 41 17 17 RI EN 0 PH CH ER AR AR MA D 25 CY W 0 MG LL C SO FT GE L LO 00 03 04 0 30 30 ME 14 AR Ac RA 78 -1 -1 0. D 03 NO ti TA 15 9- 2- 00 CA 07 LD ve DI 07 20 20 0 RE 48 NE 70 17 17 RI 1 PH CH 10 AR AR MA D MG CY W TA LL BL C ET BRYAN 00 03 04 0 30 7 ME 14 AR Ac BR 90 -1 -0 0. D 02 NO ti IC 46 8- 8- 00 CA 27 LD ve AT 32 20 20 0 RE 89 IN 94 17 17 RI G [address] AR AR US MA D CY W 0. 5% LL C EY E DR PS 00 03 04 0 30 30 ME 14 AR Ac PI 90 -1 -0 0. D 01 NO ti RI 46 9- 7- 00 CA 19 LD ve N 28 20 20 0 RE 36 81 88 17 17 RI 9 PH CH MG AR AR MA D CH CY W EW AB LL LE C TA BL ET AC 00 03 04 0 35 15 ME 14 AR Ac ID 90 -0 -0 50 D 01 NO ti 47 4- 6- .0 CA 26 LD ve GO 72 20 20 00 RE 74 NE 71 17 17 RI 4 PH CH AN AR AR TA MA D CI CY W D LI LL QU C ID TR 45 01 04 0 85 10 ME 14 AR Ac OL 80 -1 -0 0. D 00 NO ti AM 20 4- 5- 00 CA 62 LD ve IN 35 20 20 0 RE 53 E 65 17 17 RI SA 3 PH CH LI AR AR CY MA D LA CY W TE LL 10 C % CR EA M MA 00 12 03 0 30 30 ME 13 AR Ac GN 60 -0 -2 0. D 95 NO ti ES 30 3- 8- 00 CA 16 LD ve IU 20 20 20 0 RE 72 M 92 16 17 RI OX 2 PH CH ID AR AR E MA D 40 CY W 0 MG LL C TA BL ET BRYAN 00 03 03 0 50 30 ME 13 AR Ac BR 90 -1 -2 0. D 92 NO ti IC 46 8- 0- 00 CA 06 LD ve AT 32 20 20 0 RE 77 IN 95 17 17 RI G [address] AR AR US MA D CY W 0. 5% LL C EY E DR PS ST 00 08 03 0 30 30 ME 13 AR Ac OO 53 -2 -1 0. D 88 NO ti L 61 2- 4- 00 CA 31 LD ve SO 06 20 20 0 RE 45 FT 41 16 17 RI EN 0 PH CH ER AR AR MA D 25 CY W 0 MG LL C SO FT GE L LO 00 08 03 0 30 30 ME 13 AR Ac RA 78 -2 -1 0. D 88 NO ti TA 15 2- 4- 00 CA 31 LD ve DI 07 20 20 0 RE 46 NE 70 16 17 RI 1 PH CH 10 AR AR MA D MG CY W TA LL BL C ET 00 08 03 0 30 30 ME 13 AR Ac PI 90 -2 -1 0. D 87 NO ti RI 46 2- 0- 00 CA 23 LD ve N 28 20 20 0 RE 99 81 88 16 17 RI 9 PH CH MG AR AR MA D CH CY W EW AB LL LE C TA BL ET AC 00 03 03 0 35 15 ME 13 AR Ac ID 90 -0 -0 50 D 85 NO ti 47 4- 4- .0 CA 05 LD ve GO 72 20 20 00 RE 96 NE 71 17 17 RI 4 PH CH AN AR AR TA MA D CI CY W D LI LL QU C ID MA 00 12 02 0 30 30 ME 13 AR Ac GN 60 -0 -2 0. D 80 NO ti ES 30 3- 7- 00 CA 31 LD ve IU 20 20 20 0 RE 49 M 92 16 17 RI OX 2 PH CH ID AR AR E MA D 40 CY W 0 MG LL C TA BL ET LO 00 08 02 0 30 30 ME 13 AR Ac RA 78 -2 -1 0. D 73 NO ti TA 15 2- 3- 00 CA 50 LD ve DI 07 20 20 0 RE 53 NE 70 16 17 RI 1 PH CH 10 AR AR MA D MG CY W TA LL BL C ET ST 00 08 02 0 30 30 ME 13 AR Ac OO 53 -2 -1 0. D 73 NO ti L 61 2- 3- 00 CA 50 LD ve SO 06 20 20 0 RE 51 FT 41 16 17 RI EN 0 PH CH ER AR AR MA D 25 CY W 0 MG LL C SO FT GE L 00 08 02 0 30 30 ME 13 AR Ac PI 90 -2 -1 0. D 72 NO ti RI 46 2- 0- 00 CA 97 LD ve N 28 20 20 0 RE 24 81 88 16 17 RI 9 PH CH MG AR AR MA D CH CY W EW AB LL LE C TA BL ET AR 00 09 02 0 15 30 ME 13 AR Ac TI 53 -0 -0 0. D 71 NO ti FI 61 7- 6- 00 CA 26 LD ve CI 08 20 20 0 RE 59 AL 49 16 17 RI 4 PH CH TE AR AR AR MA D S CY W 1. 4 LL % C DR OP S MA 00 12 01 0 30 30 ME 13 AR Ac GN 60 -0 -2 0. D 66 NO ti ES 30 3- 8- 00 CA 30 LD ve IU 20 20 20 0 RE 48 M 92 16 17 RI OX 2 PH CH ID AR AR E MA D 40 CY W 0 MG LL C TA BL ET LO 00 08 01 0 30 30 ME 13 AR Ac RA 78 -2 -1 0. D 59 NO ti TA 15 2- 4- 00 CA 58 LD ve DI 07 20 20 0 RE 21 NE 70 16 17 RI 1 PH CH 10 AR AR MA D MG CY W TA LL BL C ET 00 08 01 0 30 30 ME 13 AR Ac PI 90 -2 -1 0. D 59 NO ti RI 46 2- 4- 00 CA 58 LD ve N 28 20 20 0 RE 17 81 88 16 17 RI 9 PH CH MG AR AR MA D CH CY W EW AB LL LE C TA BL ET ST 00 08 01 0 30 30 ME 13 AR Ac OO 53 -2 -1 0. D 59 NO ti L 61 2- 4- 00 CA 58 LD ve SO 06 20 20 0 RE 20 FT 41 16 17 RI EN 0 PH CH ER AR AR MA D 25 CY W 0 MG LL C SO FT GE L TR 45 01 01 0 85 10 ME 13 AR Ac OL 80 -1 -1 0. D 60 NO ti AM 20 4- 4- 00 CA 33 LD ve IN 35 20 20 0 RE 38 E 65 17 17 RI SA 3 PH CH LI AR AR CY MA D LA CY W TE LL 10 C % CR EA M MA 00 12 12 0 30 30 ME 13 AR Ac GN 60 -0 -3 0. D 51 NO ti ES 30 3- 0- 00 CA 96 LD ve IU 20 20 20 0 RE 64 M 92 16 16 RI OX 2 PH CH ID AR AR E MA D 40 CY W 0 MG LL C TA BL ET RO 00 08 12 0 47 10 ME 13 AR Ac BA 90 -2 -2 30 D 49 NO ti FE 40 2- 1- .0 CA 00 LD ve N 06 20 20 00 RE 84 10 11 16 16 RI 0 6 PH CH MG AR AR /5 MA D CY W ML LL SY C RU P 00 08 12 0 30 30 ME 13 AR Ac PI 90 -2 -1 0. D 45 NO ti RI 46 2- 6- 00 CA 55 LD ve N 28 20 20 0 RE 48 81 88 16 16 RI 9 PH CH MG AR AR MA D CH CY W EW AB LL LE C TA BL ET ST 00 08 12 0 30 30 ME 13 AR Ac OO 53 -2 -1 0. D 45 NO ti L 61 2- 6- 00 CA 55 LD ve SO 06 20 20 0 RE 51 FT 41 16 16 RI EN 0 PH CH ER AR AR MA D 25 CY W 0 MG LL C SO FT GE L LO 00 08 12 0 30 30 ME 13 AR Ac RA 78 -2 -1 0. D 45 NO ti TA 15 2- 6- 00 CA 55 LD ve DI 07 20 20 0 RE 52 NE 70 16 16 RI 1 PH CH 10 AR AR MA D MG CY W TA LL BL C ET AR 00 09 12 0 15 30 ME 12 AR Ac TI 53 -0 -1 0. D 93 NO ti FI 61 7- 5- 00 CA 35 LD ve CI 08 20 20 0 RE 77 AL 49 16 16 RI 4 PH CH TE AR AR AR MA D S CY W 1. 4 LL % C DR OP S MA 00 12 12 0 30 30 ME 13 AR Ac GN 60 -0 -0 0. D 39 NO ti ES 30 3- 3- 00 CA 97 LD ve IU 20 20 20 0 RE 92 M 92 16 16 RI OX 2 PH CH ID AR AR E MA D 40 CY W 0 MG LL C TA BL ET MA 00 08 11 0 30 5 ME 13 AR Ac PA 90 -2 -2 0. D 36 NO ti P 41 2- 8- 00 CA 26 LD ve 50 98 20 20 0 RE 73 0 86 16 16 RI MG 1 PH CH AR AR TA MA D BL CY W ET LL C RE 53 08 11 0 11 5 ME 13 AR Ac ME 32 -2 -2 30 D 36 NO ti DY 90 2- 8- .0 CA 32 LD ve 16 20 20 00 RE 29 CA 44 16 16 RI LA 4 PH CH ZI AR AR ME MA D CY W FL OT LL EC C T PA ST E RE 53 11 11 0 11 5 ME 13 AR Ac ME 32 -2 -2 30 D 36 NO ti DY 90 8- 8- .0 CA 88 LD ve 16 20 20 00 RE 63 CA 54 16 16 RI LA 4 PH CH ZI AR AR ME MA D CY W FL OT LL EC C T PA ST E 00 08 11 0 30 30 ME 13 AR Ac PI 90 -2 -1 0. D 30 NO ti RI 46 2- 7- 00 CA 17 LD ve N 28 20 20 0 RE 24 81 88 16 16 RI 9 PH CH MG AR AR MA D CH CY W EW AB LL LE C TA BL ET ST 00 08 11 0 30 30 ME 13 AR Ac OO 53 -2 -1 0. D 30 NO ti L 61 2- 7- 00 CA 17 LD ve SO 06 20 20 0 RE 27 FT 41 16 16 RI EN 0 PH CH ER AR AR MA D 25 CY W 0 MG LL C SO FT GE L LO 00 08 11 0 30 30 ME 13 AR Ac RA 78 -2 -1 0. D 30 NO ti TA 15 2- 7- 00 CA 17 LD ve DI 07 20 20 0 RE 28 NE 70 16 16 RI 1 PH CH 10 AR AR MA D MG CY W TA LL BL C ET RE 53 08 11 0 11 5 ME 13 AR Ac ME 32 -2 -0 30 D 24 NO ti DY 90 2- 5- .0 CA 83 LD ve 16 20 20 00 RE 84 CA 44 16 16 RI LA 4 PH CH ZI AR AR ME MA D CY W FL OT LL EC C T PA ST E 63 08 10 0 30 30 ME 13 AR Ac PI 73 -2 -1 0. D 14 NO ti RI 90 2- 9- 00 CA 90 LD ve N 43 20 20 0 RE 73 81 40 16 16 RI 1 PH CH MG AR AR MA D CH CY W EW AB LL LE C TA BL ET ST 00 08 10 0 30 30 ME 13 AR Ac OO 53 -2 -1 0. D 14 NO ti L 61 2- 9- 00 CA 90 LD ve SO 06 20 20 0 RE 76 FT 41 16 16 RI EN 0 PH CH ER AR AR MA D 25 CY W 0 MG LL C SO FT GE L LO 00 08 10 0 30 30 ME 13 AR Ac RA 78 -2 -1 0. D 14 NO ti TA 15 2- 9- 00 CA 90 LD ve DI 07 20 20 0 RE 77 NE 70 16 16 RI 1 PH CH 10 AR AR MA D MG CY W TA LL BL C ET RE 53 08 09 0 11 5 ME 13 AR Ac ME 32 -2 -2 30 D 03 NO ti DY 90 2- 8- .0 CA 69 LD ve 16 20 20 00 RE 91 CA 44 16 16 RI LA 4 PH CH ZI AR AR ME MA D CY W FL OT LL EC C T PA ST E 63 08 09 0 30 30 ME 12 AR Ac PI 73 -2 -1 0. D 97 NO ti RI 90 2- 9- 00 CA 98 LD ve N 43 20 20 0 RE 69 81 40 16 16 RI 1 PH CH MG AR AR MA D CH CY W EW AB LL LE C TA BL ET ST 00 08 09 0 30 30 ME 12 AR Ac OO 53 -2 -1 0. D 97 NO ti L 61 2- 9- 00 CA 98 LD ve SO 06 20 20 0 RE 74 FT 41 16 16 RI EN 0 PH CH ER AR AR MA D 25 CY W 0 MG LL C SO FT GE L LO 00 08 09 0 30 30 ME 12 AR Ac RA 78 -2 -1 0. D 97 NO ti TA 15 2- 9- 00 CA 98 LD ve DI 07 20 20 0 RE 75 NE 70 16 16 RI 1 PH CH 10 AR AR MA D MG CY W TA LL BL C ET RE 53 08 09 0 11 5 ME 12 AR Ac ME 32 -2 -0 30 D 93 NO ti DY 90 2- 9- .0 CA 81 LD ve 16 20 20 00 RE 54 CA 44 16 16 RI LA 4 PH CH ZI AR AR ME MA D CY W FL OT LL EC C T PA ST E MA 00 08 08 0 30 5 ME 12 AR Ac PA 90 -2 -2 0. D 83 NO ti P 41 2- 2- 00 CA 93 LD ve 50 98 20 20 0 RE 87 0 86 16 16 RI MG 1 PH CH AR AR TA MA D BL CY W ET LL C AR 00 08 08 0 15 15 ME 12 AR Ac TI 53 -2 -2 0. D 83 NO ti FI 61 2- 2- 00 CA 93 LD ve CI 08 20 20 0 RE 90 AL 49 16 16 RI 4 PH CH TE AR AR AR MA D S CY W 1. 4 LL % C DR OP S RO 00 08 08 0 47 10 ME 12 AR Ac BA 90 -2 -2 30 D 83 NO ti FE 40 2- 2- .0 CA 94 LD ve N 06 20 20 00 RE 39 10 11 16 16 RI 0 6 PH CH MG AR AR /5 MA D CY W ML LL SY C RU P 63 08 08 0 30 30 ME 12 AR Ac PI 73 -2 -2 0. D 83 NO ti RI 90 2- 2- 00 CA 94 LD ve N 43 20 20 0 RE 43 81 40 16 16 RI 1 PH CH MG AR AR MA D CH CY W EW AB LL LE C TA BL ET ST 00 08 08 0 30 30 ME 12 AR Ac OO 53 -2 -2 0. D 83 NO ti L 61 2- 2- 00 CA 94 LD ve SO 06 20 20 0 RE 81 FT 41 16 16 RI EN 0 PH CH ER AR AR MA D 25 CY W 0 MG LL C SO FT GE L LO 00 08 08 0 30 30 ME 12 AR Ac RA 78 -2 -2 0. D 83 NO ti TA 15 2- 2- 00 CA 94 LD ve DI 07 20 20 0 RE 93 NE 70 16 16 RI 1 PH CH 10 AR AR MA D MG CY W TA LL BL C ET RE 53 08 08 0 11 5 ME 12 AR Ac ME 32 -2 -2 30 D 83 NO ti DY 90 2- 2- .0 CA 95 LD ve 16 20 20 00 RE 27 CA 44 16 16 RI LA 4 PH CH ZI AR AR ME MA D CY W FL OT LL EC C T PA ST E Le 51 09 0 No vo 07 -2 fl 90 7- Lo ox 03 20 ng ac 52 13 er in 0 Ac 50 ti 0M ve G Ta bl et FI 00 10 10 3 60 30 ME 60 AR Ac SH 90 -2 -2 .0 D 40 NO ti 44 4- 4- 00 CA 69 LD ve OI 04 20 20 RE 6 L 36 11 11 RI 1, 0 PH CH 00 AR AR 0 MA D MG CY W CA LL PS C UL E 00 08 10 3 30 30 ME 58 AR Ac PI 90 -2 -2 .0 D 84 NO ti RI 42 6- 3- 00 CA 99 LD ve N 00 20 20 RE 9 32 94 11 11 RI 5 0 PH CH MG AR AR MA D TA CY W BL ET LL C FL 37 08 10 3 30 30 ME 58 AR Ac IL 00 -2 -1 .0 D 85 NO ti OS 00 6- 7- 00 CA 02 LD ve EC 45 20 20 RE 0 50 11 11 RI OT 4 PH CH C AR AR 20 MA D .6 CY W MG LL C TA BL ET 00 08 09 3 30 30 ME 58 AR Ac PI 90 -2 -2 .0 D 84 NO ti RI 42 6- 3- 00 CA 99 LD ve N 00 20 20 RE 9 32 94 11 11 RI 5 0 PH CH MG AR AR MA D TA CY W BL ET LL C FL 37 08 09 3 30 30 ME 58 AR Ac IL 00 -2 -2 .0 D 85 NO ti OS 00 6- 3- 00 CA 02 LD ve EC 45 20 20 RE 0 50 11 11 RI OT 4 PH CH C AR AR 20 MA D .6 CY W MG LL C TA BL ET LO 00 08 09 3 15 3 ME 58 AR Ac RA 59 -3 -1 .0 D 94 NO ti ZE 10 0- 9- 00 CA 31 LD ve PA 24 20 20 RE 8 M 11 11 11 RI 1 0 PH CH MG AR AR MA D TA CY W BL ET LL C LO 00 08 08 3 15 3 ME 58 AR Ac RA 59 -3 -3 .0 D 94 NO ti ZE 10 0- 0- 00 CA 31 LD ve PA 24 20 20 RE 8 M 11 11 11 RI 1 0 PH CH MG AR AR MA D TA CY W BL ET LL C MA 00 08 08 3 30 5 ME 58 AR Ac PA 90 -2 -2 .0 D 87 NO ti P 41 9- 9- 00 CA 70 LD ve 32 98 20 20 RE 9 5 26 11 11 RI MG 1 PH CH AR AR TA MA D BL CY W ET LL C FL 37 08 08 3 30 30 ME 58 AR Ac IL 00 -2 -2 .0 D 85 NO ti OS 00 6- 6- 00 CA 02 LD ve EC 45 20 20 RE 0 50 11 11 RI OT 4 PH CH C AR AR 20 MA D .6 CY W MG LL C TA BL ET 00 08 08 3 30 30 ME 58 AR Ac PI 90 -2 -2 .0 D 84 NO ti RI 42 6- 6- 00 CA 99 LD ve N 00 20 20 RE 9 32 94 11 11 RI 5 0 PH CH MG AR AR MA D TA CY W BL ET LL C Vital Signs 05-02-2013 19:26 Name Value Interpretat Reference Comment ion Range Body 100.1 Temperature [degF] BP 72 mm[Hg] Diastolic BP Systolic 119 mm[Hg] Heart 83 /min Rate/Pulse O2% 95 % Respiratory 16 /min Rate 05-02-2013 19:25 Name Value Interpretat Reference Comment ion Range BP 72 mm[Hg] Diastolic BP Systolic 119 mm[Hg] Heart 83 /min Rate/Pulse O2% 95 % Respiratory 16 /min Rate 01-16-2013 01:33 Name Value Interpretat Reference Comment ion Range BP 48 mm[Hg] Diastolic BP Systolic 91 mm[Hg] Heart 94 /min Rate/Pulse O2% 92 % Respiratory 20 /min Rate 01-16-2013 00:33 Name Value Interpretat Reference Comment ion Range BP 59 mm[Hg] Diastolic BP Systolic 106 mm[Hg] Heart 94 /min Rate/Pulse O2% 90 % Respiratory 20 /min Rate Results Labs Lab Lab Date Result Refere Interp Status Commen Order Detail nces retati t Range on Urinalysis dipstick W Reflex Microscopic panel in Urine (05-09-2017 19:33) Bacteri OCC O complet a 017 ed [Presen 19:33 ce] in Urine sedimen t by Light microsc opy Epithel 05-09- 3-5 OCC complet ial 017 ed cells.s 19:33 quamous [Presen ce] in Urine sedimen t by Microsc opy high power field Urinalysis dipstick W Reflex Microscopic panel in Urine (05-09-2017 19:33) Appeara CLEAR CLEAR complet nce of 017 ed Urine 19:33 Bilirub NEGATIV NEG complet in 017 E ed [Presen 19:33 ce] in Urine by Test strip Erythro NEGATIV NEG complet cytes 017 E ed [Presen 19:33 ce] in Urine Color YELLOW YELLOW complet of 017 ed Urine 19:33 Ketones NEGATIV NEG complet 017 E ed [Presen 19:33 ce] in Urine by Automat ed test strip Mucus NEGATIV NEG complet [Presen 017 E ed ce] in 19:33 Urine sedimen t by Light microsc opy Nitrite NEGATIV NEG complet 017 E ed [Presen 19:33 ce] in Urine by Test strip Urobili 05-09- 0.2 NEG complet nogen 017 ed [Presen 19:33 ce] in Urine by Test strip Hemoglobin.gastrointestinal [Presence] in Stool (04-09-2017 08:30) Hemoglo POSITIV NEG complet bin.gas 017 E ed trointe 08:30 stinal [Presen ce] in Stool --1st specime n Urinalysis dipstick W Reflex Microscopic panel in Urine (01-09-2017 09:00) Bacteri 1+ O complet a 017 ed [Presen 09:00 ce] in Urine sedimen t by Light microsc opy Hyaline 01-09- OCC NONE complet casts 017 ed [Presen 09:00 ce] in Urine sedimen t by Light microsc opy Mucus 1+ NONE complet [Presen 017 ed ce] in 09:00 Urine sedimen t by Light microsc opy Epithel OCC OCC complet ial 017 ed cells.s 09:00 quamous [Presen ce] in Urine sedimen t by Microsc opy high power field Urinalysis dipstick W Reflex Microscopic panel in Urine (01-09-2017 09:00) Appeara CLEAR CLEAR complet nce of 017 ed Urine 09:00 Bilirub NEGATIV NEG complet in 017 E ed [Presen 09:00 ce] in Urine by Test strip Erythro NEGATIV NEG complet cytes 017 E ed [Presen 09:00 ce] in Urine Color YELLOW YELLOW complet of 017 ed Urine 09:00 Ketones NEGATIV NEG complet 017 E ed [Presen 09:00 ce] in Urine by Automat ed test strip Mucus NEGATIV NEG complet [Presen 017 E ed ce] in 09:00 Urine sedimen t by Light microsc opy Nitrite NEGATIV NEG complet 017 E ed [Presen 09:00 ce] in Urine by Test strip Urobili 0.2 NEG complet nogen 017 ed [Presen 09:00 ce] in Urine by Test strip URINALYSIS/COMPLETE (05-02-2013 18:50) URINE 05-02-2 YELLOW YELLOW complet COLOR 013 ed 18:50 URINE 05-02-2 CLEAR CLEAR complet APPEARA 013 ed NCE 18:50 URINE 05-02-2 NEGATIV NEG complet GLUCOSE 013 E ed - 18:50 DIPSTIC K URINE 05-02-2 NEGATIV NEG complet BILIRUB 013 E ed IN - 18:50 DIPSTIC K URINE 05-02-2 NEGATIV NEG complet KETONE 013 E mg/dL ed 18:50 URINE 05-02-2 1.025 1.005-1 complet SPECIFI 013 UNK .030 ed C 18:50 GRAVITY URINE 05-02-2 NEGATIV NEG complet BLOOD 013 E ed 18:50 URINE 05-02-2 6.5 UNK 5.0-8.5 complet PH 013 ed 18:50 URINE 05-02-2 NEGATIV NEG complet PROTEIN 013 E mg/dL ed - 18:50 DIPSTIC K URINE 05-02-2 0.2 NEG complet UROBILI 013 E.U./dL ed NOGEN - 18:50 DIPSTIC K URINE 05-02-2 NEGATIV NEG complet NITRATE 013 E ed - 18:50 DIPSTIC K URINE NEGATIV NEG complet LEUK 013 E ed ESTERAS 18:50 E URINE OCC 0 complet RBC 013 rbc/hpf ed 18:50 URINE 5-10 OCC complet SQUAMOU 013 #/hpf ed S CELLS 18:50 URINE TRACE O complet BACTERI 013 ed A 18:50 COMPREHENSIVE METABOLIC PANEL (01-16-2013 00:25) Glucose 146 74-106 complet 013 mg/dL ed Bld-mCn 00:25 c BUN 14 7-18 complet Bld-mCn 013 mg/dL ed c 00:25 Creat 2 1.2 0.8-1.3 complet SerPl-m 013 mg/dL ed Cnc 00:25 ESTIMAT 107 50-200 complet ED 013 ML/MIN ed CREATIN 00:25 INE CLEARAN CE GFR 63 Greater complet (ESTIMA 013 ML/MIN than ed COURT) 00:25 60 Sodium 139 136-145 complet SerPl-s 013 mmoL/L ed Cnc 00:25 Potassi 4.0 3.5-5.1 complet um 013 mmoL/L ed SerPl-s 00:25 Cnc Chlorid 103 98-107 complet e 013 mmoL/L ed SerPl-s 00:25 Cnc CO2 27 21.0-32 complet SerPl-s 013 mmoL/L .0 ed Cnc 00:25 Calcium 2 8.4 8.5-10. complet 013 mg/dL 1 ed SerPl-m 00:25 Cnc Prot 01-16-2 7.4 6.4-8.2 complet SerPl-m 013 gm/dL ed Cnc 00:25 Albumin 01-16-2 3.1 3.4-5.0 complet 013 gm/dL ed SerPl-m 00:25 Cnc Globuli 01-16-2 4.3 1.3-3.2 complet n 013 gm/dL ed Ser-mCn 00:25 c Albumin 01-16-2 0.7 UNK 1.1-1.8 complet /Glob 013 ed SerPl-m 00:25 Rto Bilirub 13-2 0.2 0.2-1.0 complet 013 mg/dL ed SerPl-m 00:25 Cnc AST 13-2 16 U/L 15-37 complet SerPl-c 013 ed Cnc 00:25 ALT -13-2 55 U/L 30-65 complet SerPl-c 013 ed Cnc 00:25 ALP -13-2 105 U/L 50-136 complet SerPl-c 013 ed Cnc 00:25 CBC with AUTO DIFF (01-16-2013 00:25) WBC # 06-13-2 9.2 4.8-10. complet Bld 013 K/MM3 8 ed Auto 00:25 RBC # 06-13-2 3.83 4.6-6.2 complet Bld 013 M/mm3 ed Auto 00:25 Hgb -13-2 12.0 14.1-18 complet Bld-mCn 013 g/dL .0 ed c 00:25 Hct Fr 01-16-2 36.4 % 42.0-52 complet Bld 013 .0 ed 00:25 MCV RBC -13-2 95.0 fl 82.2-97 complet 013 .8 ed 00:25 MCH RBC -13-2 31.3 pg 27-31.2 complet Qn 013 ed Auto 00:25 MEAN -13-2 32.9 31.8-35 complet CORPUSC 013 g/dl .4 ed ULAR 00:25 HGB CONC RDW RBC -13-2 14.4 % 11.5-17 complet Auto 013 .5 ed 00:25 Platele -13-2 269 142-424 complet t Bld 013 K/mm3 ed Ql 00:25 Manual MEAN -13-2 7.4 fl 7.4-10. complet PLATELE 013 4 ed T 00:25 VOLUME Granulo -13-2 68.2 % 37.0-80 complet cytes 013 .0 ed Fr Bld 00:25 Auto LYMPH % 06-13-2 23.6 % 10-50 complet 013 ed 00:25 Monocyt 06-13-2 4.6 % 1.7-9.3 complet es Fr 013 ed Bld 00:25 Auto Eosinop 06-13-2 3.1 % 0.1-12. complet hil Fr 013 0 ed Bld 00:25 Auto Basophi 01-16-2 0.5 % 0.1-2.0 complet ls Fr 013 ed Bld 00:25 Auto Granulo 01-16-2 6.2 1.3-8.0 complet cytes # 013 K/mm3 ed Bld 00:25 Auto Lymphoc 01-16-2 2.2 0.7-4.5 complet ytes Fr 013 K/mm3 ed Bld 00:25 Auto Monocyt 13-2 0.4 0.1-1.0 complet es # 013 K/mm3 ed Bld 00:25 Auto Eosinop 01-16-2 0.3 0.0-0.4 complet hil # 013 K/mm3 ed Bld 00:25 Auto Basophi 01-16-2 0.1 0-0.2 complet ls # 013 K/MM3 ed Bld 00:25 Auto Procedures Procedure DOS Code Location Performer Comment BLOOD [id number] HEMOGLOBI ASSOCIATE ASSOCIATE N S S BLOOD [id number] [place] [employer] HEMATOCRI ASSOCIATE ASSOCIATE T S S J CARLOS V [id number] [address] 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 [place] CATH S S IND SNF/LAB 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 [id number] 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 SPEC; S S PRORAT ACTL MILE COLOREC [id number] LAURA SANCHEZ CA SCR; 7 [facility] FOB TST INC INC IMMUNO 1-3 SIMULTANE OUS URNLS DIP 37139 LAURA SANCHEZ 7 [facility] STICK/TAB INC INC LET REAGENT AUTO MICROSCOP Y BLOOD 20610 CAYMAN ISLANDER [address] COMPLETE ASSOCIATE ASSOCIATE AUTO&AUTO S S DIFRNTL WBC O2 CONC 1 E1390 [facility] HE[facility] 85%/>02 E E CONC AT [facility] FLW RATE J CARLOS V [id number] 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 MIREILLE CATH S S IND SNF/LAB 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 SPEC; S S PRORAT ACTL MILE PRTBLE E0434 MARLYN SALAZART LQD O2 7 HEALTHCAR HEALTHCAR SYS RENT; E E RESRVOR HUMIDFR FLWMTR TRAVEL [phone] 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 SPEC; S S PRORAT ACTL MILE J CARLOS V G0471 [place] [address] HEALTH HEALTH 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 SMP CATH S S IND SNF/LAB BHALF GEOPHYSICS PROFESSOR BLOOD 26007 [place] [address] HEALTH HEALTH COMPLETE ASSOCIATE ASSOCIATE AUTO&AUTO S S DIFRNTL WBC CT THORAX 19549 LAURA SANCHEZ W/O 7 [facility] CONTRAST INC INC MATERIAL CT SOFT 61070 LAURA LAURA TISSUE 7 [facility] NECK W/O INC INC CONTRAST MATERIAL HEMOGLOBI [address] GLYCOSYLA ASSOCIATE ASSOCIATE COURT A1C S S J CARLOS V [id number] [address] HEALTH 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 MIREILLE SANCHEZ S S IND SNF/LAB [place] [address] [facility] THYROID [address] [place] [address] STIMULATI ASSOCIATE ASSOCIATE NG S S HORMONE TSH TRAVEL [phone] 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 SPEC; S S PRORAT ACTL MILE URNLS DIP 22994 LAURA LEAL [address] [place] [address] LET RGNT P NON-AUTO W/O MICRSCP O2 CONC 1 E1390 ECHOMICHELLE CLINE [facility] 7 HEALTHCAR HEALTHCAR 85%/>02 E E CONC AT PRSC FLW RATE O2 CONC 1 E1390 [place] [facility] 7 HEALTHCAR HEALTHCAR 85%/>02 E E CONC AT PRS FLW RATE DEBRIDEME 36669 SPECIAL VICTORIANO [place] NT NAIL 7 CARE ANY PODIATRY METHOD OF YAMIL 6/> LIPID 80856 CAYMAN ISLANDER [facility] 7 HEALTH HEALTH ASSOCIATE ASSOCIATE S S J CARLOS V G0471 [place] [address] HEALTH HEALTH 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 SMP CATH S S IND SNF/LAB BHALF GEOPHYSICS PROFESSOR NONEMERGE A0130 FEDERATED FEDERATED NCY 7 TRANS TRANSPORT TRANSPORT SERVBLUEG ATION: ATION SER TOSHA Dobson VAN TRAVEL 1 [phone] [place] [address] HEALTH HEALTH 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 SPEC; S S PRORAT ACTL MILE RADIOLOGI 13239 [facility] EXAMINATI ON KNEE 1/2 VIEWS TRANS R0070 [facility] PRTBL 7 LLC LLC X-RAY EQP&PERS RICHMOND/NRS RICHMOND-TRIP 1 PT RADIOLOGI 20140 [facility] LLC EXAMINATI ON FEMUR MINIMUM 2 VIEWS SET-UP Q0092 [facility] PORTABLE 7 LLC LLC X-RAY EQUIPMENT RADIOLOGI 37468 [facility] EXAMINATI ON TIBIA & FIBULA 2 VIEWS BLOOD 84923 CAYMAN ISLANDER CAYMAN ISLANDER COUNT 7 HEALTH HEALTH COMPLETE ASSOCIATE ASSOCIATE AUTO&AUTO S S DIFRNTL WBC URNLS DIP 40208 LAURA SANCHEZ 7 [facility] STICK/TAB INC INC LET REAGENT AUTO MICROSCOP Y COMPREHEN 29590 CAYMAN ISLANDER CAYMAN ISLANDER SIVE 7 HEALTH HEALTH METABOLIC ASSOCIATE ASSOCIATE PANEL S S J CARLOS V G0471 CAYMAN ISLANDER CAYMAN ISLANDER BLD 7 HEALTH HEALTH 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 SMP CATH S S IND SNF/LAB 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 P9603 [place] [address] HEALTH HEALTH 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 SPEC; S S PRORAT ACTL MILE RADIOLOGI 09813 [facility] EXAMINATI ON CHEST SINGLE VIEW FRONTAL TRANS R0070 [facility] PRTBL 7 LLC LLC X-RAY EQP&PERS RICHMOND/NRS RICHMOND-TRIP 1 PT SET-UP Q0092 [facility] PORTABLE 7 LLC LLC X-RAY EQUIPMENT O2 CONC 1 E1390 [facility] 7 HEALTHCAR HEALTHCAR 85%/>02 E E CONC AT PRSC FLW RATE RADEX 43741 NICKI ORDONEZ WRIST 7 MEDICAL COMPLETE IMAGING MINIMUM 3 ASS VIEWS RADEX 66429 RONNELL [facility] WRIST 7 [facility] LLC COMPLETE MINIMUM 3 VIEWS TRANS R0070 [facility] PRTBL 7 [facility] X-RAY EQP&PERS RICHMOND/NRS RICHMOND-TRIP 1 PT SET-UP Q0092 [facility] PORTABLE 7 [facility] X-RAY EQUIPMENT RADEX 09333 [facility] FOREARM 2 7 [facility] LLC VIEWS NONEMERGE A0130 FEDERATED FEDERATED NCY 7 TRANS TRANSPORT TRANSPORT SERVBLUEG ATION: ATION SER TOSHA RAMIREZ NONEMERGE A0130 FEDERATED FEDERATED NCY 7 TRANS TRANSPORT TRANSPORT SERVBLUEG ATION: ATION SER TOSHA RAMIREZ J CARLOS V G0471 CAYMAN ISLANDER CAYMAN ISLANDER BLD 7 HEALTH HEALTH 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 MIREILLE CATH S S IND SNF/LAB BHALF GEOPHYSICS PROFESSOR NATRIURET 47350 CAYMAN ISLANDER CAYMAN ISLANDER 7 HEALTH HEALTH PEPTIDE ASSOCIATE ASSOCIATE S S TRAVEL 1 P9603 CA[place] ISLANDER [facility] 7 HEALTH HEALTH 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 SPEC; S S PRORAT ACTL MILE ECG 05285 LAURA SANCHEZ ROUTINE 7 [facility] ECG INC INC W/LEAST 12 LDS TRCG ONLY W/O I&R ECG 92554 [facility] ROUTINE 7 PHYSICIAN ECG S GROUP W/LEAST 12 LDS I&R ONLY NONEMERGE A0130 FEDERATED FEDERATED NCY 7 TRANS TRANSPORT TRANSPORT SERVBLUEG ATION: ATION SER TOSHA RAMIREZ URNLS DIP 85905 [place] [address] HEALTH HEALTH STICK/TAB ASSOCIATE ASSOCIATE CATHY Galindo S REAGENT AUTO MICROSCOP Y CULTURE 61668 CAYMAN ISLANDER CAYMAN ISLANDER BACTERIAL 7 HEALTH HEALTH ASSOCIATE ASSOCIATE QUANTTAINES Galindo VE COLONY COUNT URINE NONEMERGE A0130 FEDERATED FEDERATED NCY 7 TRANS TRANSPORT TRANSPORT SERVBLUEG ATION: ATION SER TOSHA RAMIREZ O2 CONC 1 E1390 [place] [facility] 7 HEALTHCAR HEALTHCAR 85%/>02 E E CONC AT [facility] FLW RATE NONEMERGE A0130 FEDERATED FEDERATED NCY 7 TRANS TRANSPORT TRANSPORT SERVBLUEG ATION: ATION SER TOSHA RAMIREZ GAS 01979 LAURA SANCHEZ DILUT/WAS 7 [facility] HOUT LUNG INC INC VOL W/WO DISTRIB VENT&[place] [address] LAURA SANCHEZ DIFFUSING 7 [facility] CAPACITY INC INC BRNCDILAT 08794 LAURA SANCHEZ RSPSE 7 [facility] SPMTRY INC INC PRE&POST- BRNCDILAT ADMN PRESSURIZ 08908 LAURA SANCHEZ ED/NONPRE 7 [facility] SSURIZED INC INC INHALATIO N TREATMENT CULTURE 44616 LAURA SANCHEZ BCT 7 [facility] ISOL&PRSM INC INC PTV ID ISOLATE EA URINE CULTURE 61579 LAURA SANCHEZ BACTERIAL 7 [facility] INC INC QUANTTATI VE COLONY COUNT URINE SUSCEPTIB 82968 LAURA SANCHEZ LTY STDY 7 [facility] ANTIMICRB INC INC IAL MICRO/AGA R DILUTJ NONEMERGE A0130 FEDERATED FEDERATED NCY 7 TRANS TRANSPORT TRANSPORT SERVBLUEG ATION: ATION SER TOSHA RAMIREZ URNLS DIP 95610 LAURA LEAL 7 [facility] LET RGNT P NON-AUTO W/O MICRSCP O2 CONC 1 E1390 [facility] HEALTH[facility] HEALTHCAR 85%/>02 E E CONC AT [facility] FLW RATE NONEMERGE A0130 FEDERATED FEDERATED NCY 7 TRANS TRANSPORT TRANSPORT SERVBLUEG ATION: ATION SER TOSHA RAMIREZ RADEX 99324 LAURA SANCHEZ SHOULDER 7 [facility] COMPLETE INC INC MINIMUM 2 VIEWS FOR DIAB A5512 [facility] ONLY MX 7 MEDICAL MEDICAL DNSITY SUPPLY SUPPLY INSRT DIR LLC LLC FORMD PRFAB EA DIAB ONLY A5500 [facility] [place] FIT CSTM 7 MEDICAL MEDICAL PREP&SPL SUPPLY SUPPLY SHOE MX LLC LLC DNSITY INSRT URNLS DIP 51461 LAURA SANCHEZ 7 [facility] STICK/TAB INC INC LET REAGENT AUTO MICROSCOP Y DEBRIDEME 36281 SPECIAL SKRIP JR. NT NAIL 7 CARE ANY PODIATRY METHOD OF YAMIL 6/> NONEMERGE A0130 FEDERATED FEDERATED NCY 7 TRANS TRANSPORT TRANSPORT SERVBLUEG ATION: ATION SER TOSHA LIBERTADI R VAN SET-UP Q0092 [facility] PORTABLE 7 [facility] LLC X-RAY EQUIPMENT RADEX 11880 [facility] SHOULDER 7 LLC LLC COMPLETE MINIMUM 2 VIEWS TRANS R0070 [facility] PRTBL 7 LLC LLC X-RAY EQP&PERS RICHMOND/NRS RICHMOND-TRIP 1 PT TRANS R0070 [facility] PRTBL 7 LLC LLC X-RAY EQP&PERS RICHMOND/NRS RICHMOND-TRIP 1 PT RADIOLOGI 88714 [facility] C 7 [facility] LLC EXAMINATI ON CHEST SINGLE VIEW FRONTAL SET-UP Q0092 [facility] PORTABLE 7 LLC LLC X-RAY EQUIPMENT SET-UP Q0092 [facility] PORTABLE 7 LLC LLC X-RAY EQUIPMENT RADIOLOGI 21990 [facility] C 7 LLC LLC EXAMINATI ON CHEST SINGLE VIEW FRONTAL TRANS R0075 [facility] PRTBL 7 LLC LLC XRAY EQP&PERS RICHMOND/NRS RICHMOND-TRIP> 1 PT O2 CONC 1 E1390 [facility] 7 HEALTHCAR HEALTHCAR 85%/>02 E E CONC AT [facility] FLW RATE J CARLOS V G0471 CAYMAN ISLANDER CAYMAN ISLANDER BLD 7 HEALTH HEALTH 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 SMP CATH S S IND SNF/LAB BHALF GEOPHYSICS PROFESSOR BLOOD 00168 CAYMAN ISLANDER CAYMAN ISLANDER COUNT 7 HEALTH HEALTH COMPLETE ASSOCIATE ASSOCIATE AUTO&AUTO S S DIFRNTL WBC BASIC 74572 CAYMAN ISLANDER CAYMAN ISLANDER METABOLIC 7 HEALTH HEALTH PANEL ASSOCIATE ASSOCIATE CALCIUM S S TOTAL TRAVEL 1 P9603 CAYMAN ISLANDER CAYMAN ISLANDER [facility] MED 7 HEALTH HEALTH [facility] MITER OPERATOR ASSOCIATE SPEC; S S PRORAT ACTL MILE ECG 13838 LAURA SANCHEZ ROUTINE 7 [facility] ECG INC INC W/LEAST 12 LDS TRCG ONLY W/O I&R ECG 70159 [facility] ROUTINE 7 PHYSICIAN ECG S GROUP W/LEAST 12 LDS I&R ONLY NONEMERGE A0130 FEDERATED FEDERATED NCY 7 TRANS TRANSPORT TRANSPORT SERVBLUEG ATION: ATION SER TOSHA Dobson VAN O2 CONC 1 E1390 [facility] [place] 7 HEALTHCAR HEALTHCAR 85%/>02 E E CONC AT [facility] FLW RATE AMBULANCE A0428 [facility] SERVICE 7 AMBULANCE AMBULANCE BLS SERVICE SERVICE NONEMERGE [facility] TRANSPORT GROUND A0425 [facility] MILEAGE 7 AMBULANCE AMBULANCE PER SERVICE SERVICE STATUTE MILE GROUND A0425 [facility] MILEAGE 7 AMBULANCE AMBULANCE PER SERVICE SERVICE STATUTE MILE RADIOLOGI 48299 [facility] 7 MEDICAL EXAMINATI IMAGING ON CHEST ASS SINGLE VIEW FRONTAL AMB A0427 [facility] SERVICE 7 AMBULANCE AMBULANCE ALS SERVICE SERVICE EMERGENCY TRANSPORT LEVEL 1 ECG 89531 LAURA HOLCOMB ROUTINE 7 [facility] W/LEAST P 12 LDS I&R ONLY NONEMERGE A0130 FEDERATED FEDERATED NCY 7 TRANS TRANSPORT TRANSPORT SERVBLUEG ATION: ATION SER TOSHA Dobson VAN VISUAL 96965 [facility] FIELD XM 7 MEDICAL UNI/BI SERV W/INTERP FOUNDATIO EXTENDED N EXAM HOSPITAL G0463 [facility] OUTPATIEN 7 HEALTHCAR HEALTHCAR T CLIN E E VISIT [facility] ASSESS & MGMT [place] ECG 58246 [facility] ROUTINE 7 HEALTHCAR HEALTHCAR ECG E E W/LEAST [facility]OS[facility] 12 LDS TRCG ONLY W/O I&R DEBRIDEME 79931 SPECIAL VICTORIANO MARTINEZ. NT NAIL 7 CARE ANY PODIATRY METHOD OF YAMIL 6/> O2 CONC 1 E1390 [place] [facility] 7 HEALTHCAR HEALTHCAR 85%/>02 E E CONC AT [facility] FLW RATE O2 CONC 1 E1390 [facility] 6 HEALTHCAR HEALTHCAR 85%/>02 E E CONC AT PRS FLW RATE POLYSOM 27688 LAURA LAURA 6/>YRS 6 [facility] H[facility] SLEEP INC INC W/CPAP 4/> ADDL KATARINA ATTND NONEMERG A0120 FEDERATED FEDERATED TRNSPRT: 6 MINI-BUS TRANSPORT TRANSPORT MTN ATION SER ATION SER AREA/OTH SYS O2 CONC 1 E1390 [facility] 6 HEALTHCAR HEALTHCAR 85%/>02 E E CONC AT [facility] FLW RATE J CARLOS V G0471 CAYMAN ISLANDER CAYMAN ISLANDER BLD 6 HEALTH HEALTH 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 MIREILLE CATH S S IND SNF/LAB BHALF GEOPHYSICS PROFESSOR BASIC 09371 CAYMAN ISLANDER CAYMAN ISLANDER METABOLIC 6 HEALTH HEALTH PANEL ASSOCIATE ASSOCIATE CALCIUM S S TOTAL TRAVEL 1 P9603 CAYMAN ISLANDER CAYMAN ISLANDER [facility] 6 HEALTH HEALTH 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 SPEC; S S PRORAT ACTL MILE DEBRIDEME 08392 SPECIAL SKRIP JR. NT NAIL 6 CARE SELVIN ANY PODIATRY METHOD OF YAMIL 6/> O2 CONC 1 E1390 [facility] 6 HEALTHCAR HEALTHCAR 85%/>02 E E CONC AT PRS FLW RATE ECG 22922 [facility] MEREDITH ROUTINE 6 PHYSICIAN MAT ECG S GROUP W/LEAST 12 LDS I&R ONLY ECG 36874 LAURA SANCHEZ ROUTINE 6 [facility] ECG INC INC W/LEAST 12 LDS TRCG ONLY W/O I&R ECG 40629 LAURA ZARCO JR ROUTINE 6 [facility] W/LEAST P 12 LDS I&R ONLY RADIOLOGI 29808 [place] ALEISHA C EXAM 6 MEDICAL KIERAN CHEST 2 IMAGING VIEWS ASS FRONTAL&L ATERAL O2 CONC 1 E1390 [facility] 6 HEALTHCAR HEALTHCAR 85%/>02 E E CONC AT PRS FLW RATE RADEX 64759 [place] ORDONEZ ALL SPINE 6 MEDICAL LUMBOSACR IMAGING AL 2/3 ASS VIEWS RADEX 27594 NICKI ORDONEZ ALL SPINE 6 MEDICAL THORACIC IMAGING 2 VIEWS ASS RADEX 58339 [facility] ORDONEZ ALL SPINE 6 MEDICAL CERVICAL IMAGING 2 OR 3 ASS VIEWS ECG 11885 [facility] ROUTINE 6 PHYSICIAN MAT ECG S GROUP W/LEAST 12 LDS I&R ONLY NONEMERG A0120 FEDERATED FEDERATED TRNSPRT: 6 MINI-BUS TRANSPORT TRANSPORT MTN ATION SER ATION SER AREA/OTH SYS NONEMERG A0120 FEDERATED FEDERATED TRNSPRT: 6 MINI-BUS TRANSPORT TRANSPORT MTN ATION SER ATION SER AREA/OTH SYS ECG 64497 [facility] ROUTINE 6 PHYSICIAN MAT ECG S GROUP W/LEAST 12 LDS I&R ONLY ECG 21448 LAURA HOLCOMB ROUTINE 6 [facility] W/LEAST P 12 LDS I&R ONLY PC C9600 MEADOWVIE MEADOWVIE TRNSCTH 6 W W PLCMT RX [facility] [place] [facility] MEDICAL MEDICAL STENTS; 1 CHRISTINE CA/BR NONEMERG A0120 FEDERATED FEDERATED TRNSPRT: 6 MINI-BUS TRANSPORT TRANSPORT MTN ATION SER ATION SER AREA/[place] PRQ 71144 [facility] TRLUML 6 PHYSICIAN MAT CORONARY S GROUP STENT W/ANGIO ONE ART/BRNCH ECG 91791 LAURA RUFFINSON ROUTINE 6 [facility] W/LEAST P 12 LDS I&R ONLY NONEMERG A0120 FEDERATED FEDERATED TRNSPRT: 6 MINI-BUS TRANSPORT TRANSPORT MTN ATION SER ATION SER AREA/OTH SYS RADEX 61419 LAURA SANCHEZ WRIST 6 [facility] COMPLETE INC INC MINIMUM 3 VIEWS RADIOLOGI 08341 NICKI ORDONEZ ALL C 6 MEDICAL EXAMINATI IMAGING ON CHEST ASS SINGLE VIEW FRONTAL NONEMERG A0120 FEDERATED FEDERATED TRNSPRT: 6 MINI-BUS TRANSPORT TRANSPORT MTN ATION SER ATION SER AREA/OTH SYS NONEMERG A0120 FEDERATED FEDERATED TRNSPRT: 6 MINI-BUS TRANSPORT TRANSPORT MTN [facility] RADIOLOGI 51669 [place] ORDONEZ ALL C 6 MEDICAL EXAMINATI IMAGING ON CHEST ASS SINGLE VIEW FRONTAL NONEMERG A0120 FEDERATED FEDERATED TRNSPRT: 6 MINI-BUS TRANSPORT TRANSPORT MTN [facility] NONEMERG A0120 FEDERATED FEDERATED TRNSPRT: 6 MINI-BUS TRANSPORT TRANSPORT MTN [facility] NONEMERG A0120 FEDERATED FEDERATED TRNSPRT: 6 MINI-BUS TRANSPORT TRANSPORT MTN [facility] NONEMERG A0120 FEDERATED FEDERATED TRNSPRT: 6 MINI-BUS TRANSPORT TRANSPORT MTN [facility] 88637 [facility] DISCHARGE 6 PHYSICIAN MAT DAY S GROUP MANAGEMEN T 30 MIN/< PRQ [address]226 [facility] TRLUML 6 PHYSICIAN MAT CORONARY S GROUP STENT W/ANGIO ONE ART/BRNCH PC C9600 MEADOWVIE MEADOWVIE TRNSCTH 6 W W PLCMT RX [facility] [place] [facility] MEDICAL MEDICAL STENTS; 1 CHRISTINE CA/BR NONEMERG A0120 FEDERATED FEDERATED TRNSPRT: 6 MINI-BUS TRANSPORT TRANSPORT MTN [facility] SYS NONEMERG A0120 FEDERATED FEDERATED TRNSPRT: 6 MINI-BUS TRANSPORT TRANSPORT MTN [facility] SYS ECHO 88850 LAURA LAURA TTHRC R-T 6 [facility] 2D INC INC W/WOM-MOD E COMPL SPEC&COLR D NONEMERG A0120 FEDERATED FEDERATED TRNSPRT: 6 MINI-BUS TRANSPORT TRANSPORT MTN [facility] RADEX 29096 [facility] SPINE 6 MEDICAL GILMA LUMBOSACR IMAGING AL 2/[address] [place] [address] [facility] CERVICAL 6 MEDICAL GILMA SPINE W/O IMAGING CONTRAST ASS MATERIAL ECG 85502 LAURA [facility] ROUTINE [address] [facility] W/LEAST P 12 LDS I&R ONLY RADEX 93335 [place] BEINEKE SPINE 6 MEDICAL GILMA THORACIC IMAGING 2 VIEWS ASS RADIOLOGI 29921 [place] ALEISHA C 6 MEDICAL KIERAN EXAMINATI IMAGING [place] [address] [place] ALEISHA HEAD/BRAI 6 MEDICAL KIERAN N W/O IMAGING CONTRAST ASS MATERIAL NONEMERG A0120 FEDERATED FEDERATED TRNSPRT: 6 MINI-BUS TRANSPORT TRANSPORT MTN [facility]ION [facility]OT SYS NONEMERG A0120 FEDERATED FEDERATED TRNSPRT: 6 MINI-BUS TRANSPORT TRANSPORT MTN [facility]ION [facility] SYS RADIOLOGI 50484 [place] ORDONEZ ALL C 6 MEDICAL EXAMINATI IMAGING ON CHEST ASS SINGLE VIEW FRONTAL NONEMERG A0120 FEDERATED FEDERATED TRNSPRT: 6 MINI-BUS TRANSPORT TRANSPORT MTN ATION SER ATION [facility]/OT SYS ECG 20896 CARDIOVAS MEREDITH ROUTINE 6 CULAR MAT ECG CONSULTAN W/LEAST TS O 12 LDS I&R ONLY RADIOLOGI 49630 [place] ORDONEZ ALL C 6 MEDICAL EXAMINATI IMAGING ON CHEST ASS SINGLE VIEW FRONTAL NONEMERG A0120 FEDERATED FEDERATED TRNSPRT: 6 MINI-BUS TRANSPORT TRANSPORT MTN ATION SER [facility]OT SYS NONEMERG A0120 FEDERATED FEDERATED TRNSPRT: 5 MINI-BUS TRANSPORT TRANSPORT MTN [facility] 33126 [facility] 5 JEANIE JEANIE DAY MANAGEMEN T 30 MIN/< SBSQ 28499 [facility] 5 JEANIE JEANIE CARE/DAY 25 MINUTES SBSQ 21368 [facility] 5 JEANIE JEANIE CARE/DAY 25 MINUTES SBSQ 49755 [facility] 5 JEANIE JEANIE CARE/DAY 25 MINUTES SBSQ 02201 [facility] 5 JEANIE JEANIE CARE/DAY 25 MINUTES SBSQ 33395 [facility] 5 JEANIE JEANIE CARE/DAY 25 MINUTES SBSQ 62551 [facility] 5 JEANIE JEANIE CARE/DAY [address] THORAX 23172 [facility] 5 MEDICAL GILMA W/CONTRAS IMAGING T ASS MATERIAL RADIOLOGI 88032 [facility] 5 MEDICAL GILMA EXAMINATI IMAGING ON CHEST ASS SINGLE VIEW FRONTAL INITIAL 96303 [facility] 5 JEANIE JEANIE CARE/DAY 50 MINUTES RADEX 99990 [place] ORDONEZ ALL FINGR 5 MEDICAL MINIMUM 2 IMAGING VIEWS ASS URNLS DIP 64260 LAURA SANCHEZ 5 [facility] STICK/TAB INC INC LET REAGENT AUTO MICROSCOP Y NONEMERG A0120 FEDERATED FEDERATED TRNSPRT: 5 MINI-BUS TRANSPORT TRANSPORT MTN ATION SER ATION SER AREA/OTH SYS NONEMERG A0120 FEDERATED FEDERATED TRNSPRT: 5 MINI-BUS TRANSPORT TRANSPORT MTN ATION SER ATION SER AREA/OTH SYS ECG 08741 CARDIOVAS MEREDITH ROUTINE 5 CULAR MAT ECG CONSULTAN W/LEAST TS O 12 LDS I&R ONLY ECG 54351 LAURA SANCHEZ ROUTINE 5 [facility] ECG INC INC W/LEAST 12 LDS TRCG ONLY W/O I&R NONEMERG A0120 FEDERATED FEDERATED TRNSPRT: 5 MINI-BUS TRANSPORT TRANSPORT MTN ATION SER ATION SER AREA/OTH SYS NONEMERG A0120 FEDERATED FEDERATED TRNSPRT: 5 MINI-BUS TRANSPORT TRANSPORT MTN ATION SER ATION SER AREA/OTH SYS CONTINUOU E0601 [facility] S 5 POSITIVE AIRWAY PRESSURE DEVICE NONEMERG A0120 FEDERATED FEDERATED TRNSPRT: 5 MINI-BUS TRANSPORT TRANSPORT MTN ATION SER ATION SER AREA/OTH SYS R & L HRT 30899 CARDIOVAS MEREDITH CATH 5 CULAR MAT WINJX HRT CONSULTAN ART& [place] [address] [facility] MORAES ABDOMEN & 5 MEDICAL KIERAN PELVIS IMAGING W/O ASS CONTRAST MATERIAL RADIOLOGI 08197 [facility] ALEISHA C 5 MEDICAL KIERAN EXAMINATI IMAGING ON CHEST ASS SINGLE VIEW FRONTAL RADIOLOGI 41786 [facility] STILESALEISHA C 5 MEDICAL KIERAN EXAMINATI IMAGING [place] [address] [facility] MORAES THORACIC 5 MEDICAL KIERAN SPINE W/[place] [address] [facility] ALEISHA CERVICAL 5 MEDICAL KIERAN SPINE W/O IMAGING CONTRAST ASS MATERIAL RADIOLOGI 42036 [facility] ALEISHA C 5 MEDICAL KIERAN EXAMINATI IMAGING ON PELVIS ASS 1/2 VIEWS NONEMERG A0120 FEDERATED FEDERATED TRNSPRT: 5 MINI-BUS TRANSPORT [facility] RAD[facility] [id number] [place] C EXAM 5 MEDICAL GILMA CHEST 2 IMAGING VIEWS ASS FRONTAL&L ATERAL ECHO 12531 LAURA SANCHEZ TTHRC R-T 5 MEM HOSP MEM [facility]OS[facility] 2D INC INC W/WOM-MOD E COMPL SPEC&COLR D NONEMERG A0120 FEDERATED FEDERATED TRNSPRT: 5 MINI-BUS TRANSPORT [facility]/OT SYS NONEMERG A0120 FEDERATED FEDERATED TRNSPRT: 5 MINI-BUS TRANSPORT TRANSPORT MTN [facility]/OT SYS CONTINUOU E0601 [facility]LE[facility] S 5 POSITIVE AIRWAY PRESSURE DEVICE WALKER E0143 [facility] FOLDING 5 WHEELED ADJUSTABL E/FIXED HEIGHT NONEMERG A0120 FEDERATED FEDERATED TRNSPRT: 5 MINI-BUS TRANSPORT TRANSPORT MTN [facility]/OT SYS RADEX 60580 [facility] [place] MORAES RIBS UNI 5 MEDICAL KIERAN W/POSTERO IMAGING ANT CH ASS MINIMUM 3 VIEWS NONEMERGE A0100 FEDERATED FEDERATED NCY 5 TRANSPORT TRANSPORT TRANSPORT ATION; [facility] SER TAXI NONEMERGE A0100 FEDERATED FEDERATED NCY 5 TRANSPORT TRANSPORT TRANSPORT ATION; ATION SER ATION SER TAXI NONEMERGE A0100 FEDERATED FEDERATED NCY 5 TRANSPORT TRANSPORT TRANSPORT ATION; ATION SER ATION SER TAXI NONEMERG A0120 FEDERATED FEDERATED TRNSPRT: 5 MINI-BUS TRANSPORT TRANSPORT MTN ATION SER ATION SER AREA/OTH SYS NONEMERG A0120 FEDERATED FEDERATED TRNSPRT: 5 MINI-BUS TRANSPORT TRANSPORT MTN ATION SER ATION SER AREA/OTH SYS NONEMERG A0120 FEDERATED FEDERATED TRNSPRT: 4 TRANS MINI-BUS TRANSPORT SERVBLUEG MTN ATION SER [place] AREA/OTH SYS NONEMERG A0120 FEDERATED FEDERATED TRNSPRT: 4 TRANS MINI-BUS TRANSPORT SERVBLUEG MTN ATION SER [place] AREA/[place] [address] [facility] ABDOMEN & 4 MEDICAL GILMA PELVIS IMAGING W/CONTRAS ASS T MATERIAL NONEMERG A0120 FEDERATED FEDERATED TRNSPRT: 4 TRANS MINI-BUS TRANSPORT SERVBLUEG MTN ATION SER [place] AREA/OTH SYS NONEMERG A0120 FEDERATED FEDERATED TRNSPRT: 4 TRANS MINI-BUS TRANSPORT SERVBLUEG MTN ATION SER [place] AREA/OTH SYS XTRNL 77484 [place] ONDINA OCULAR 4 MEDICAL SHA PHOTOG SERV W/I&R FOUNDATIO DOCMT N MEDICAL PROGRE O2 CONC 1 E1390 ARON KNIGHTRELL [place] 4 HOME HOME 85%/>02 MEDICAL MEDICAL CONC AT EQUIPME EQUIPME PRSC FLW RATE SPMTRY 25241 LAURA SANCHEZ W/VC 4 MEM HOSP MEM HOSP EXPIRATOR INC INC Y MARYLOU W/WO MXML VOL VNTJ NONEMERG A0120 FEDERATED FEDERATED TRNSPRT: 4 TRANS MINI-BUS TRANSPORT SERVBLUEG MTN ATION SER [place] AREA/OTH SYS O2 CONC 1 E1390 ARON ARON [place] 4 HOME HOME 85%/>02 MEDICAL MEDICAL CONC AT EQUIPME EQUIPME PRSC FLW RATE NONEMERG A0120 FEDERATED FEDERATED TRNSPRT: 4 TRANS MINI-BUS TRANSPORT SERVBLUEG MTN ATION SER [place] AREA/OTH SYS O2 CONC 1 E1390 ARONADRIANNE SHARP [facility] 4 HOME HOME 85%/>02 MEDICAL MEDICAL CONC AT EQUIPME EQUIPME PRSC FLW RATE NONEMERG A0120 FEDERATED FEDERATED TRNSPRT: 4 TRANS MINI-BUS TRANSPORT SERVBLUEG MTN ATION SER [place] AREA/OTH SYS NONEMERG A0120 FEDERATED FEDERATED TRNSPRT: 4 TRANS MINI-BUS TRANSPORT SERVBLUEG MTN ATION SER [place] AREA/OTH SYS O2 CONC 1 E1390 ARON KNIGHTRELL [facility] 4 HOME HOME 85%/>02 MEDICAL MEDICAL CONC AT EQUIPME EQUIPME PRS FLW RATE SAVAGE 24300 LAURA MATHIS JR POST-VOID 4 [facility] RESIDUAL P URINE&/BL ADDER CAP NONEMERG A0120 FEDERATED FEDERATED TRNSPRT: 4 TRANS MINI-BUS TRANSPORT SERVBLUEG MTN ATION SER [place] AREA/OTH SYS NONEMERG A0120 FEDERATED FEDERATED TRNSPRT: 4 TRANS MINI-BUS TRANSPORT SERVBLUEG MTN ATION SER TOSHA AREA/OTH SYS NONEMERG A0120 FEDERATED FEDERATED TRNSPRT: 4 [facility] TRANSPORT TRANSPORT MTN ATION SER ATION SER AREA/OTH SYS O2 CONC 1 E1390 ARON KNIGHTRELL [facility] 4 HOME HOME 85%/>02 MEDICAL MEDICAL CONC AT EQUIPME EQUIPME PRSC FLW RATE NONEMERG A0120 FEDERATED FEDERATED TRNSPRT: 4 [facility] TRANSPORT TRANSPORT MTN ATION SER ATION SER AREA/OTH SYS NONEMERG A0120 FEDERATED FEDERATED TRNSPRT: 4 [facility] TRANSPORT TRANSPORT MTN ATION SER ATION SER AREA/OTH SYS SAVAGE 41109 LAURA MATHIS JR POST-VOID 4 [facility] RESIDUAL P URINE&/BL ADDER CAP O2 CONC 1 E1390 [facility]ON KNIGHTRELL [place] 4 HOME HOME 85%/>02 MEDICAL MEDICAL CONC AT EQUIPME EQUIPME PRSC FLW RATE NONEMERG A0120 FEDERATED FEDERATED TRNSPRT: 4 [facility] TRANSPORT TRANSPORT MTN ATION SER ATION SER AREA/OTH SYS NONEMERG A0120 FEDERATED FEDERATED TRNSPRT: 4 [facility] TRANSPORT TRANSPORT MTN ATION SER ATION SER AREA/OTH SYS SAVAGE 50523 LAURA MATHIS JR POST-VOID 4 [facility] RESIDUAL P URINE&/BL ADDER CAP O2 CONC 1 E1390 [facility] 4 HOME HOME 85%/>02 MEDICAL MEDICAL CONC AT EQUIPME EQUIPME PRSC FLW RATE NONEMERG A0120 FEDERATED FEDERATED TRNSPRT: 4 [facility] TRANSPORT TRANSPORT MTN ATION SER ATION SER AREA/OTH SYS 3D 61551 [place] ALEISHA RENDERING 4 [facility] IMAGING W/INTERP& [place] [address] [place] MAXILLOFA 4 [facility] CIAL W/O IMAGING CONTRAST ASS MATERIAL NONEMERG A0120 FEDERATED FEDERATED TRNSPRT: 4 [facility] TRANSPORT TRANSPORT MTN ATION SER ATION SER AREA/OTH SYS NONEMERG A0120 FEDERATED FEDERATED TRNSPRT: 4 [facility] TRANSPORT TRANSPORT MTN ATION SER ATION SER AREA/OTH SYS O2 CONC 1 E1390 [facility] HOME 85%/>02 MEDICAL MEDICAL CONC AT EQUIPME EQUIPME PRSC FLW RATE NONEMERG A0120 FEDERATED FEDERATED TRNSPRT: 4 [facility] TRANSPORT TRANSPORT MTN ATION SER ATION SER AREA/OTH SYS NONEMERG A0120 FEDERATED FEDERATED TRNSPRT: 4 [facility] TRANSPORT TRANSPORT MTN ATION SER ATION SER AREA/OTH SYS RADIOLOGI 13743 LAURA Swartz EXAM 4 [facility] KNEE INC INC COMPLETE 4/MORE VIEWS RADEX 33214 LAURA SANCHEZ WRIST 4 [facility] COMPLETE INC INC MINIMUM 3 VIEWS O2 CONC 1 E1390 [facility] 3 HOME HOME 85%/>02 [facility]ICAL MEDICAL CONC [facility] FLW [facility]ATE NONEMERG A0120 FEDERATED FEDERATED TRNSPRT: 3 [facility]-BUS TRANSPORT TRANSPORT MTN ATION SER ATION SER AREA/OTH SYS NONEMERG A0120 FEDERATED FEDERATED TRNSPRT: 3 [facility] TRANSPORT TRANSPORT MTN ATION SER ATION SER AREA/OTH SYS NONEMERG A0120 FEDERATED FEDERATED TRNSPRT: 3 [facility] TRANSPORT TRANSPORT MTN ATION SER ATION SER AREA/OTH SYS O2 CONC 1 E1390 [facility] 3 HOME HOME 85%/>02 [facility] [place] [address] LAURA SANCHEZ INFUSION 3 [facility] THERAPY/P INC INC ROPHYLAXI S /DX 1ST TO 1 HR PRESSURIZ 17280 LAURA SANCHEZ ED/NONPRE 3 [facility] SSURIZED INC INC INHALATIO N TREATMENT NEUROPLAS 76521 LAURA SANCHEZ TY 3 [facility] &/TRANSPO INC INC S MEDIAN NRV CARPAL TUNNE THERAPEUT 34781 LAURA SANCHEZ IC 3 [facility] INJECTION [place] [address] LAURA SANCHEZ INFUSION 3 [facility] THERAPY INC INC PROPHYLAX IS/DX EA HOUR NONEMERG A0120 FEDERATED FEDERATED TRNSPRT: 3 [facility] TRANSPORT TRANSPORT MTN ATION SER ATION SER AREA/OTH SYS NONEMERG A0120 FEDERATED FEDERATED TRNSPRT: 3 [facility] TRANSPORT TRANSPORT MTN ATION SER ATION SER AREA/OTH SYS NONEMERG A0120 FEDERATED FEDERATED TRNSPRT: 3 [facility] TRANSPORT TRANSPORT MTN ATION SER ATION SER AREA/OTH SYS O2 CONC 1 E1390 [facility] PORT 3 HOME HOME 85%/>02 MEDICAL MEDICAL CONC AT EQUIPPR [facility] [place] [address] LAURA SANCHEZ INFUSION 3 [facility] THERAPY INC INC PROPHYLAX IS/DX EA HOUR THERAPEUT 00878 LAURA SANCHEZ IC 3 [facility] INJECTION [place] [address] LAURA SANCHEZ INFUSION 3 [facility] THERAPY/P INC INC ROPHYLAXI S /DX 1ST TO 1 HR NEUROPLAS 26309 LAURA SANCHEZ TY 3 [facility] &/TRANSPO INC INC S MEDIAN NRV CARPAL TUNNE RADIOLOGI 21963 NICKI Swartz EXAM 3 [facility] CHEST 2 IMAGING VIEWS ASS FRONTAL&L ATERAL BLOOD 88440 LAURA SANCHEZ COUNT 3 [facility] COMPLETE INC INC AUTO&AUTO DIFRNTL WBC ECG 21038 LAURA HOLCOMB ROUTINE 3 [facility] W/LEAST P 12 LDS I&R ONLY COLLECTIO 13418 LAURA SANCHEZ N VENOUS 3 [facility] BLOOD INC INC VENIPUNCT URE BASIC 13665 LAURA SANCHEZ METABOLIC 3 [facility] PANEL INC INC CALCIUM TOTAL ECG 03486 LAURA SANCHEZ ROUTINE 3 [facility] ECG INC INC W/LEAST 12 LDS TRCG ONLY W/O I&R NONEMERG A0120 LKLP CAC LKLP CAC TRNSPRT: 3 INC INC [facility] REGION 11 REGION 11 MTN AREA/OTH SYS NONEMERG A0120 LKLP CAC LKLP CAC TRNSPRT: 3 INC INC [facility] REGION 11 REGION 11 MTN AREA/OTH SYS DETERMINA 62103 ELENI KNOWLES TION 3 JAM JAM REFRACTIV E STATE OPHTHALMO 87344 ELENI KNOWLES SCPY 3 JAM JAM EXTENDED RETINAL DRAWING I&R 1ST NONEMERG A0120 LKLP CAC LKLP CAC TRNSPRT: 3 INC INC [facility] REGION 11 REGION 11 MTN AREA/OTH SYS O2 CONC 1 E1390 ARON FRAZIER [place] 3 HOME HOME 85%/>02 MEDICAL MEDICAL CONC AT EQUIPME EQUIPME PRS FLW RATE NERVE 78426 [facility]ENRIIS[facility]AR[facility] JUSTICE CONDUCTIO 3 [facility]/> [facility] 55283 TENRIISM VINH EMG EA 3 [facility] W/PARASPI [place] NL AREA COMPLETE NONEMERG A0120 LK CAC [facility] CAC TRNSPRT: 3 INC INC [facility] REGION 11 REGION 11 MTN AREA/OTH SYS TRIMMING 66120 BRAUDIS BRAUDIS NONDYSTRO 3 JAM JAM PHIC NAILS ANY NUMBER O2 CONC 1 E1390 ARON FRAZIER [place] 3 HOME HOME 85%/>02 MEDICAL MEDICAL CONC AT EQUIPME EQUIPME PRS FLW RATE MRI 69171 NICKI ROCKCHER SPINAL 3 [facility] CANAL IMAGING CERVICAL ASS W/O CONTRAST MATRL GLUC BLD 68927 LAURA SANCHEZ GLUC MNTR 3 [facility] DEV INC INC CLEARED FDA SPEC HOME USE EGD 17582 LAURA SANCHEZ TRANSORAL 3 [facility] BIOPSY INC INC SINGLE/MU LTIPLE SPCL STN 36662 LAURA SANCHEZ 2 I&R 3 [facility] EXCPT INC INC MICROORG/ ENZYME/[place] [address] LAURA SANCHEZ SURG 3 [facility] PATHOLOGY INC INC GROSS&ARMANDO ROSCOPIC EXAM NONEMERG A0120 LK CAC [facility] CAC TRNSPRT: 3 INC INC [facility] REGION 11 REGION 11 MTN AREA/[place] [address] LAURA SANCHEZ INFUSION 3 [facility] THERAPY INC INC PROPHYLAX IS/DX EA HOUR EXCISION 12014 MARKIE LOZADA THO NAIL 3 [facility] REMOVAL NONEMERG A0120 [facility] TRNSPRT: 3 [facility] MINI-BUS ACTION ACTION MTN AREA/OTH SYS O2 CONC 1 E1390 ARON FRAZIER [place] 3 HOME HOME 85%/>02 MEDICAL MEDICAL CONC AT EQUIPME EQUIPME PRSC FLW RATE CREATINE 58907 LAURA SANCHEZ KINASE 3 [facility] TOTAL INC INC COMPREHEN 84824 LAURA SANCHEZ SIVE 3 [facility] METABOLIC INC INC PANEL CREATINE 02823 LAURA SANCHEZ KINASE MB 3 [facility] FRACTION INC INC ONLY RADIOLOGI 98809 LAURA SANCHEZ C EXAM 3 [facility] CHEST 2 INC INC VIEWS FRONTAL&[place] [address] LAURA SANCHEZ TROPONIN 3 [facility] QUANTITAT INC INC ANGY BLOOD 11827 LAURA SANCHEZ COUNT 3 [facility] COMPLETE INC INC AUTO&AUTO DIFRNTL WBC ECG 01145 ERIC PATRICK ROUTINE 3 MEDICAL [facility] ECG GROUP, W/LEAST PLLC 12 LDS I&R ONLY ECG 16147 LAURA SANCHEZ ROUTINE 3 [facility] ECG INC INC W/LEAST 12 LDS TRCG ONLY W/O I&R GROUND A0425 [facility] AMBULANCE PER SERVICE SERVICE STATUTE MILE AMB A0427 [facility] SERVICE 3 AMBULANCE AMBULANCE ALS SERVICE SERVICE EMERGENCY TRANSPORT LEVEL 1 NONCOVERE A9270 [facility] ITEM OR 3 HOSPITAL HOSPITAL SERVICE O2 CONC 1 E1390 ARON ARON DEL [place] 3 HOME HOME 85%/>02 MEDICAL MEDICAL CONC AT EQUIPME EQUIPME PRS FLW RATE DEBRIDEME 71236 BRAUDIS BRAUDIS NT NAIL 3 JAM JAM ANY METHOD 1-5 TRIMMING 93933 BRAUDIS BRAUDIS NONDYSTRO 3 JAM JAM PHIC NAILS ANY NUMBER O2 CONC 1 E1390 ARON ARON DEL [place] 3 HOME HOME 85%/>02 MEDICAL MEDICAL CONC AT EQUIPME EQUIPME [facility] FLW RATE PROSTATE G0103 COMBINED COMBINED CANCER 3 PHYSICIAN PHYSICIAN SCREENING S LA S LA ; PSA TEST URNLS DIP 11563 COMBINED COMBINED 3 PHYSICIAN PHYSICIAN STICK/TAB S LA S LA LET REAGENT AUTO MICROSCOP Y RADEX 53213 [facility] SHOULDER 3 MOBILE MOBILE COMPLETE DIAGNOSTI DIAGNOSTI MINIMUM 2 C SE C SE VIEWS RADEX 83328 [facility] HUMERUS 3 MOBILE MOBILE MINIMUM 2 DIAGNOSTI DIAGNOSTI VIEWS C SE C SE RADEX 17341 EXPRESS EXPRESS ELBOW 3 MOBILE MOBILE COMPLETE DIAGNOSTI DIAGNOSTI MINIMUM 3 C SE C SE VIEWS O2 CONC 1 E1390 ARON SHARP [place] 3 HOME HOME 85%/>02 MEDICAL MEDICAL CONC AT EQUIPME EQUIPME PRSC FLW RATE O2 CONC 1 E1390 ARON KNIGHTRELL [place] 3 HOME HOME 85%/>02 MEDICAL MEDICAL CONC AT EQUIPME EQUIPME PRSC FLW RATE PARING/CU 48456 RAMÍREZ BUSHS TTING 3 JAM JAM BENIGN HYPERKERA TOTIC LESION >4 DEBRIDEME 49863 RAMÍREZ BUSHS NT NAIL 3 JAM JAM ANY METHOD 1-5 TRIMMING 24563 RAMÍREZ GUILLENUDIS NONDYSTRO 3 JAM JAM PHIC NAILS ANY NUMBER O2 CONC 1 E1390 ARON KNIGHTRELL [place] 3 HOME HOME 85%/>02 MEDICAL MEDICAL CONC AT EQUIPME EQUIPME PRS FLW RATE NONEMERG A0120 LKLP LKLP TRNSPRT: 3 [facility] ACTION ACTION MTN AREA/[place] [address] LAURA TRIPPON INFUSION 3 [facility] THERAPY INC INC PROPHYLAX IS/DX EA HOUR COLONOSCO 04130 C ANTONETTE GEORGE PY FLX DX 3 DORIS HILLMAN W/PERRY [place] [address] LAURA TRIPPON INFUSION 3 [facility] THERAPY/P INC INC ROPHYLAXI S /DX 1ST TO 1 HR O2 CONC 1 E1390 ARON SHARP [place] 2 HOME HOME 85%/>02 MEDICAL MEDICAL CONC AT EQUIPME EQUIPME PRS FLW RATE O2 CONC 1 E1390 ARON SHARP [place] 2 HOME HOME 85%/>02 MEDICAL MEDICAL CONC AT EQUIPME EQUIPME PRS FLW RATE COMPREHEN 34978 COMBINED COMBINED SIVE 2 PHYSICIAN PHYSICIAN [place] [address] COMBINED COMBINED THYROID 2 PHYSICIAN PHYSICIAN STIMULATI S LA S LA NG HORMONE TSH COLLECTIO 75196 COMBINED COMBINED N VENOUS 2 PHYSICIAN PHYSICIAN BLOOD S LA S LA VENIPUNCT URE LIPID 52108 COMBINED COMBINED PANEL 2 PHYSICIAN PHYSICIAN S LA S LA PROSTATE G0103 COMBINED COMBINED CANCER 2 PHYSICIAN PHYSICIAN SCREENING S LA S LA ; PSA TEST O2 CONC 1 E1390 ARON SHARP [place] 2 HOME HOME 85%/>02 MEDICAL MEDICAL CONC AT EQUIPME EQUIPME PRSC FLW RATE RADIOLOGI 32471 LAURA SANCHEZ C 2 [facility] EXAMINATI INC INC ON CHEST [place] FRONTAL ECG 35527 LAURA SANCHEZ ROUTINE 2 [facility] ECG INC INC W/LEAST 12 LDS TRCG ONLY W/O I&R ECG 23580 RAND ADDISONMAN ROUTINE 2 III MARCY III MARCY ECG W/LEAST 12 LDS I&R ONLY SAVAGE 82315 DEL MATHIS JR POST-VOID 2 MARCY MARCY ING RESIDUAL URINE&/BL ADDER CAP NONEMERG A0120 LKLP LKLP TRNSPRT: 2 [facility] MINI-BUS ACTION ACTION MTN AREA/[place] [address] LAURA SANCHEZ THYROID 2 [facility] STIMULATI INC INC NG HORMONE TSH BASIC 26733 LAURA SANCHEZ METABOLIC 2 [facility] PANEL INC INC CALCIUM TOTAL BLOOD 67463 LAURA SANCHEZ COUNT 2 [facility] COMPLETE INC INC AUTO&AUTO DIFRNTL WBC URNLS DIP 55597 LAURA SANCHEZ 2 [facility] STICK/TAB INC INC LET REAGENT AUTO MICROSCOP Y INSJ TEMP 92539 LAURA SANCHEZ NDWELLG 2 [facility] BLADDER INC INC CATHETER SIMPLE 3D 86524 NICKI MORAES RENDERING 2 [facility] IM[facility] W/INTERP& [place] [address] NICKI MORAES ABDOMEN & 2 [facility] PELVIS IMAGING W/[place] [address] LAURA SANCHEZ INFUSION 2 [facility] HYDRATION INC INC INITIAL 31 MIN-1 HOUR ECG 76895 RAND WILCOXHRMAN ROUTINE 2 III MARCY III MARCY ECG W/LEAST 12 LDS I&R ONLY RADIOLOGI 37407 NICKI ALEISHA C 2 [facility] EXAMINATI IMAGING ON CHEST ASS [place] FRONTAL O2 CONC 1 E1390 ARON MOSES 2 HOME HOME 85%/>02 MEDICAL MEDICAL CONC AT EQUIPME EQUIPME [facility] FLW RATE TRIMMING 47385 BRAUDIS BRAUDIS NONDYSTRO 2 JAM JAM PHIC NAILS ANY NUMBER O2 CONC 1 E1390 ARON MOSES 2 HOME HOME 85%/>02 MEDICAL MEDICAL CONC AT EQUIPME EQUIPME [facility] FLW RATE BASIC 17594 LAURA SANCHEZ METABOLIC 2 [facility] PANEL INC INC CALCIUM TOTAL CT SOFT 92857 NICKI ROCKCHER TISSUE 2 [facility] NECK W/O IMAGING CONTRAST ASS MATERIAL BLOOD 34096 LAURA SANCHEZ COUNT 2 [facility] COMPLETE INC INC AUTO&AUTO DIFRNTL WBC CT SOFT 22938 LAURA SANCHEZ TISSUE 2 [facility] NECK INC INC W/CONTRAS T MATERIAL LOCM Q9967 LAURA LAURA [phone] 2 [facility] MG/ML INC INC IODINE CONCENTRA TION PER ML 3D 25911 LAURA LAURA RENDERING 2 [facility] INC INC W/INTERP& POSTPROC DIFF WORK STATION O2 CONC 1 E1390 ARON MOSES 2 HOME HOME 85%/>02 MEDICAL MEDICAL CONC AT EQUIPME EQUIPME [facility] FLW RATE O2 CONC 1 E1390 ARON MOSES 2 HOME HOME 85%/>02 MEDICAL MEDICAL CONC AT EQUIPME EQUIPME PRS FLW RATE CONTINUOU E0601 ARON SHARP S 2 HOME HOME POSITIVE MEDICAL MEDICAL AIRWAY EQUIPME EQUIPME PRESSURE DEVICE O2 CONC 1 E1390 ARON MOSES 2 HOME HOME 85%/>02 MEDICAL MEDICAL CONC AT EQUIPME EQUIPME PRS FLW RATE CONTINUOU E0601 ARON SHARP S 2 HOME HOME POSITIVE MEDICAL MEDICAL AIRWAY EQUIPME EQUIPME PRESSURE DEVICE O2 CONC 1 E1390 ARON ARON DEL PORT 2 HOME HOME 85%/>02 MEDICAL MEDICAL CONC AT EQUIPME EQUIPME PRSC FLW RATE CONTINUOU E0601 ARON SHARP S 2 HOME HOME POSITIVE MEDICAL MEDICAL AIRWAY EQUIPME EQUIPME PRESSURE DEVICE NONEMERG A0120 LKLP LKLP TRNSPRT: 2 [facility]I-BUS ACTION ACTION MTN AREA/OTH SYS ECG 92305 ZEKE BAR ZEKE BAR ROUTINE 2 ECG W/LEAST 12 LDS I&R ONLY ECG 47055 HEEB CHR HEEB CHR ROUTINE 2 ECG W/LEAST 12 LDS I&R ONLY ECG 03881 HEEB CHR HEEB CHR ROUTINE 2 ECG W/LEAST 12 LDS I&R ONLY RADIOLOGI 85682 RADIOLOGY NEILS JONATHAN C 2 EXAMINATI ASSOCIATE ON CHEST S OF [facility] [place] FRONTAL ECG 72028 HEEB CHR HEEB CHR ROUTINE 2 ECG W/LEAST 12 LDS I&R ONLY O2 CONC 1 E1390 ARON ARON FRAZIER PORT 2 HOME HOME 85%/>02 MEDICAL MEDICAL CONC AT EQUIPME EQUIPME PRSC FLW RATE CONTINUOU E0601 ARON SHARP S 2 HOME HOME POSITIVE MEDICAL MEDICAL AIRWAY EQUIPME EQUIPME PRESSURE DEVICE O2 CONC 1 E1390 ARON ARON FRAZIER PORT 1 HOME HOME 85%/>02 MEDICAL MEDICAL CONC AT EQUIPME EQUIPME PRSC FLW RATE TUBING A7037 ARON SHARP USED WITH 1 HOME HOME POSITIVE MEDICAL MEDICAL AIRWAY EQUIPME EQUIPME PRESSURE DEVICE NASL A7034 ARON SHARP INTRFCE 1 HOME HOME POS ARWAY MEDICAL MEDICAL PRSS EQUIPME EQUIPME DEVC W/WO HEAD STRAP HEADGEAR A7035 ARON SHARP USED 1 HOME HOME W/POSITIV MEDICAL MEDICAL E AIRWAY EQUIPME EQUIPME PRESSURE DEVICE HUMDIFIR E0562 ARON SHARP HEATED 1 HOME HOME USED MEDICAL MEDICAL W/POS EQUIPME EQUIPME ARWAY PRESSURE DEVICE CONTINUOU E0601 ARON SHARP S 1 HOME HOME POSITIVE MEDICAL MEDICAL AIRWAY EQUIPME EQUIPME PRESSURE DEVICE FILTER A7038 ARON SHARP DISPBL 1 HOME HOME USED MEDICAL MEDICAL W/POS EQUIPME EQUIPME ARWAY PRESSURE DEVICE FILTER A7039 ARON SHARP NON 1 HOME HOME DISPBL MEDICAL MEDICAL USED EQUIPME EQUIPME W/POS ARWAY PRESS DEVICE POLYSOM 35043 LEON QUINTERO 6/>YRS 1 ERNST ERNST SLEEP W/CPAP 4/> ADDL KATARINA ATTND POLYSOM 00671 LAURA SANCHEZ 6/>YRS 1 [facility] SLEEP INC INC W/CPAP 4/> [place] [address] LAURA SANCHEZ ABDOMEN & 1 [facility] PELVIS INC INC W/O CONTRAST MATERIAL 3D 25728 LAURA SANCHEZ RENDERING 1 [facility] INC INC W/INTERP& POSTPROC DIFF WORK STATION COMPREHEN 65189 LAURA SANCHEZ SIVE 1 [facility] METABOLIC INC INC PANEL COLLECTIO 11584 LAURA SANCHEZ N VENOUS 1 [facility] BLOOD INC INC VENIPUNCT URE CULTURE 01260 LAURA SANCHEZ BACTERIAL 1 [facility] INC INC QUANTTATI VE COLONY COUNT URINE BLOOD 68212 LAURA SANCHEZ COUNT 1 [facility] COMPLETE INC INC AUTO&AUTO DIFRNTL WBC INSJ TEMP 21990 LAURA SANCHEZ NDWELLG 1 [facility] BLADDER INC INC CATHETER SIMPLE URNLS DIP 66119 LAURA SANCHEZ 1 [facility] STICK/TAB INC INC LET REAGENT AUTO MICROSCOP Y MYOCARDIA 35090 LAURA SANCHEZ L SPECT 1 [facility] MULTIPLE INC INC STUDIES INJECTION J2785 LAURA SANCHEZ 1 [facility] REGADENOS INC INC ON 0.1 MG CV STRS 38977 AICHA HOLCOMB TST 1 JEANIE JEANIE XERS&/OR RX CONT ECG I&R ONLY CV STRS 82313 ZAYRA BLOOM TST 1 XERS&/OR RX CONT ECG W/O I&R CV STRS 79360 LAURA SANCHEZ TST 1 [facility] XERS&/OR INC INC RX CONT ECG TRCG ONLY TECHNETIU A9502 LAURA Ornelas TC-99M 1 [facility] TETROFOSM INC INC IN DX PER STUDY DOSE INITIAL 35283 AICHA HOLCOMB OBSERVATI 1 JEANIE JEANIE ON CARE/DAY 30 MINUTES ECG 70183 PUND CHR PUND CHR ROUTINE 1 ECG W/LEAST 12 LDS I&R ONLY RADIOLOGI 58833 [place] ALEISHA C EXAM 1 [facility] CHEST 2 IMAGING VIEWS ASS FRONTAL&L ATERAL ECHO 37018 LAURA SANCHEZ TTHRC R-T 1 [facility] 2D INC INC W/WOM-MOD E COMPL SPEC&COLR D POLYSOM 85469 LEON QUINTERO 6/>YRS 1 ERNST ERNST SLEEP 4/> ADDL KATARINA ATTND NONEMERG A0120 LKLP LKLP TRNSPRT: 1 COMM[facility]ITY COMM[facility] ACTION N MTN AREA/OTH SYS POLYSOM 71587 LAURA SANCHEZ 6/>YRS 1 [facility] SLEEP 4/> INC INC ADDL KATARINA ATTND NONINVASI 37966 LAURA SANCHEZ VE 1 [facility] EAR/PULSE INC INC OXIMETRY SINGLE DETER SPMTRY 99953 LAURA SANCHEZ W/VC 1 [facility] EXPIRATOR INC INC Y MARYLOU W/WO MXML VOL VNTJ [facility] 29776 LAURA SANCHEZ ANALYSIS 1 [facility] ADDL HIGH INC INC RESOLUTIO N STUDY COLLECTIO 65943 LAURA SANCHEZ N VENOUS 1 [facility] BLOOD INC INC VENIPUNCT URE CHRMS 78930 LAURA SANCHEZ COUNT 1 [facility] 15-20 CLL INC INC 2KARYOTYP BANDING BLOOD 85978 LAURA SANCHEZ COUNT 1 [facility] COMPLETE INC INC AUTO&[place] [address] LAURA SANCHEZ THYROID 1 [facility] STIMULATI INC INC NG HORMONE TSH COMPREHEN 46146 LAURA SANCHEZ SIVE 1 [facility] METABOLIC INC INC PANEL NONEMERG A0120 LKLP LKLP TRNSPRT: 1 [facility]I-[facility] ACTION N DEN AREA/OT SYS TRAVEL [address] MED 1 PHYSICIAN PHYSICIAN NEC LAB S LA S LA SPEC; PRORATD TRIP CHRG COMPREHEN 16325 COMBINED COMBINED SIVE 1 PHYSICIAN PHYSICIAN [place] [address] COMBINED COMBINED THYROID 1 PHYSICIAN PHYSICIAN STIMULATI S LA S LA NG HORMONE TSH PROSTATE G0103 COMBINED COMBINED CANCER 1 PHYSICIAN PHYSICIAN SCREENING S LA S LA ; PSA TEST LIPID 73997 COMBINED COMBINED PANEL 1 PHYSICIAN PHYSICIAN S LA S LA COLLECTIO 43323 COMBINED COMBINED N VENOUS 1 PHYSICIAN PHYSICIAN BLOOD S LA S LA VENIPUNCT URE NONEMERG A0120 [facility] TRNSPRT: 1 [facility] ACTION N [facility] AREA/OTH SYS CULTURE 50499 COMBINED COMBINED BACTERIAL 1 PHYSICIAN PHYSICIAN S LA S LA QUANTTATI VE COLONY COUNT URINE URNLS DIP 10066 COMBINED COMBINED 1 PHYSICIAN PHYSICIAN STICK/TAB S LA S LA LET [place] [address] ORAL ORAL SURG 1 PATHOLOGY PATHOLOGY PATHOLOGY LABORATOR LABORATOR GROSS&ARMANDO [place] [address] THE RODRIGUEZ, LESION/TU 1 IMPLANT & III OANH MOR ORAL DENTOALVE SURGERY C OLAR STRUX W/SMPL RPR ORTHOPANT 53535 THE THE OGRAM 1 IMPLANT & IMPLANT & ORAL ORAL SURGERY C SURGERY C NONEMERG A0120 [facility] TRNSPRT: 1 [facility] ACTION N DEN AREA/OTH SYS NONEMERG A0120 [facility] TRNSPRT: 1 [facility] ACTION N [facility] AREA/OTH SYS NONEMERG A0120 [facility] TRNSPRT: 1 [facility] ACTION N [facility] AREA/OTH SYS OPHTH [id number] [facility] MEDICAL 1 VISION XM&EVAL COMPRE NEW PT 1/> VST RADEX 17477 [facility] WRIST 1 [facility] LLC COMPLETE MINIMUM 3 VIEWS TRANS R0070 [facility] PRTBL 1 LLC LLC X-RAY EQP&PERS R[place]/NRS RICHMOND-TRIP 1 PT SET-UP Q0092 [facility] PORTABLE 1 LLC [facility] X-RAY EQUIPMENT SET-UP Q0092 [facility] PORTABLE 1 LLC LLC X-RAY EQUIPMENT TRANS R0070 [facility] PRTBL 1 [facility] LLC X-RAY EQP&PERS RICHMOND/NRS RICHMOND-TRIP 1 PT RADIOLOGI 42220 [facility] C 1 LLC [facility] EXAMINATI [place] [address] LAURA SANCHEZ ABDOMEN & 1 [facility] PELVIS INC INC W/O CONTRAST MATERIAL GROUND A0425 [facility] MILEAGE 1 AMBULANCE AMBULANCE PER SERVICE SERVICE STATUTE MILE AMBULANCE A0429 [facility] SERVICE 1 AMBULANCE AMBULANCE BLS SERVICE SERVICE EMERGENCY TRANSPORT 3D [id number] LAURA SANCHEZ RENDERING 1 [facility] INC INC W/INTERP& POSTPROC DIFF WORK STATION COMPREHEN 20420 LAURA SANCHEZ SIVE 1 [facility] METABOLIC INC INC PANEL BLOOD 16931 LAURA SANCHEZ COUNT 1 [facility] COMPLETE INC INC AUTO&AUTO DIFRNTL WBC INSJ TEMP 47617 AMANDA PATRICK NDWELLG 1 EMERGENCY [facility] CATHETER SIMPLE URNLS DIP 64305 LAURA SANCHEZ 1 [facility] STICK/TAB INC INC LET REAGENT AUTO MICROSCOP Y ECG [address] [facility] ROUTINE 1 [facility] ECG CARDIOLOG W/LEAST Y CLINIC 12 LDS I&R ONLY RADEX 35072 EXPRESS EXPRESS HAND 1 MOBILE MOBILE MINIMUM 3 DIAGNOSTI DIAGNOSTI VIEWS C SE C SE SET-UP Q0092 EXPRESS EXPRESS PORTABLE 1 MOBILE MOBILE X-RAY DIAGNOSTI DIAGNOSTI EQUIPMENT C SE C SE GROUND A0425 [facility] MILEAGE 1 AMBULANCE AMBULANCE PER SERVICE SERVICE STATUTE MILE RADEX 71856 EXPRESS EXPRESS WRIST 1 MOBILE MOBILE COMPLETE DIAGNOSTI DIAGNOSTI MINIMUM 3 C SE C SE VIEWS SBSQ 27036 [facility] [place] CARE/DAY URGENT 25 TREAT MINUTES RADIOLOGI 89705 [facility] [place] RADHA C 1 RADIOLOGY BOY EXAMINATI ON CHEST SINGLE VIEW FRONTAL AMB A0427 [facility] SERVICE 1 AMB[facility]ANCE AMBULANCE ALS SERVICE SERVICE EMERGENCY TRANSPORT LEVEL 1 TRANS R0075 EXPRESS EXPRESS PRTBL 1 MOBILE MOBILE XRAY DIAGNOSTI DIAGNOSTI EQP&PERS C SE C SE [place]MON[place]/NRS RICHMOND-TRIP> 1 PT SBSQ 69023 [facility] 1 [place] CARE/DAY URGENT 35 TREAT MINUTES SBSQ 90802 [facility] [place] CARE/DAY URGENT 25 TREAT MINUTES SBSQ 58035 [facility] [place] CARE/DAY URGENT 25 TREAT MINUTES SBSQ 14227 [facility] 1 URGENT CARE/DAY TREATMENT 35 A MINUTES RADEX 40453 EXPRESS EXPRESS HAND 1 MOBILE MOBILE MINIMUM 3 DIAGNOSTI DIAGNOSTI VIEWS C SE C SE SET-UP Q0092 [facility] EXPRESS PORTABLE 1 MOBILE MOBILE X-RAY DIAGNOSTI DIAGNOSTI EQUIPMENT C SE C SE TRANS R0070 EXPRESS EXPRESS PRTBL 1 MOBILE MOBILE X-RAY DIAGNOSTI DIAGNOSTI EQP&PERS C SE C SE [place]/NRS RICHMOND-TRIP 1 PT SBSQ 89900 [facility] 1 URGENT CARE/DAY TREATMENT 35 A MINUTES SBSQ 04061 [facility] 1 [place] CARE/DAY URGENT 35 TREAT MINUTES SET-UP Q0092 EXPRESS EXPRESS PORTABLE 1 MOBILE MOBILE X-RAY DIAGNOSTI DIAGNOSTI EQUIPMENT C SE C SE ECG 39736 [facility] ROUTINE 1 [place] ECG URGENT W/LEAST TREAT 12 LDS I&R ONLY RADIOLOGI 28714 EXPRESS EXPRESS C EXAM 1 MOBILE MOBILE CHEST 2 DIAGNOSTI DIAGNOSTI VIEWS C SE C SE FRONTAL&L ATERAL TRANS R0070 EXPRESS EXPRESS PRTBL 1 MOBILE MOBILE X-RAY DIAGNOSTI DIAGNOSTI EQP&PERS C SE C SE RICHMON[place]/NRS RICHMOND-TRIP 1 PT ECG 00573 [facility] EXPRESS ROUTINE 1 MOBILE MOBILE ECG DIAGNOSTI DIAGNOSTI W/LEAST C SE C SE 12 LDS TRCG ONLY W/O I&R INITIAL 06414 [facility] 1 URGENT CARE/DAY TREATMENT 50 A MINUTES COMPREHEN 29046 FAMILY MONONORBERTO SIVE 1 [facility] [employer] [place] [address] FAMILY MONOHAN THYROID 1 [facility] ST[facility] OF [place] [id number] FAMILY MONOHAN FREE 1 [facility]ACT [facility] THYROXINE [facility] [place] LIPID 67988 FAMILY [place] PANEL 1 [facility] [place] COLLECTIO 45485 FAMILY FAMILY N VENOUS 1 PRACT PRACT BLOOD ASSOC OF ASSOC OF VENIPUNCT [place] URE RADEX 79563 CENTRAL LYN J SPINE 1 RADIOLOGY THORACIC ASSOC MINIMUM 4 VIEWS URNLS DIP [id number] FAMILY MONOHAN 1 PRACT RONALD STICK/TAB ASSOC OF [place] [address] [place] ABDOMEN & 1 RADIOLOGY LD A PELVIS W/CONTRAS T MATERIAL Encounters Encounter Start End Date Code Location Performer Type Date [facility] - OTHER 7 7 [facility] - OTHER 7 7 [facility] [place] INPATIENT 7 7 [facility] - 7 7 [facility] OFFICE 39827 [facility]AL [facility] 7 [facility] 10 P MINUT[facility] IN[facility] 7 7 [facility]ALTH[facility] E OFFICE 11895 [facility] 7 7 MEDICAL T VISIT SERV 40 FOUNDATIO MINUTES [facility] OTHER 7 7 [facility] IN[facility] 7 7 [facility] E OFFICE 07218 [facility] PETTEY OUTPATIEN 7 7 PHYSICIAN T VISIT S GROUP 10 MINUTES [facility] - 7 7 [facility] INC T OFFICE 45612 [facility] MEREDITH OUTPATIEN 7 7 PHYSICIAN T VISIT S GROUP 25 MINUTES OFFICE 18616 [facility] LEAL OUTPATIEN 7 7 [facility] 10 P MINUTES [facility] 7 [facility] - 7 7 [facility] OUTPATIEN INC T OFFICE 63643 [facility]AL OUTPATIEN 7 7 [facility] 10 P MINUTES [facility] - 7 7 [facility]PATIEN INC [facility] LAURA - 7 7 [facility] OUTPATIEN INC T OFFICE 43987 [facility] PETTEY OUTPATIEN 7 7 PHYSICIAN T VISIT S GROUP 15 MINUTES HOSPITAL [facility] OTHER 7 7 [facility] 7 7 [facility] E OFFICE 17136 [facility] BRYANT OUTPATIEN 7 7 PHYSICIAN T NEW 20 S GROUP MINUTES [facility] 7 7 [facility] - 7 7 [facility] OUTPATIEN INC T OFFICE 61314 [facility] MEREDITH OUTPATIEN 7 7 PHYSICIAN T VISIT S GROUP 25 MINUTES [facility] 7 7 [facility] 7 7 [facility] 7 7 [facility]ALTHCAR E EMERGENCY 52116 KEVIN PATRICK DEPT 7 7 PHYSICIAN VISIT S, [facility] HIGH SEVERITY& THREAT RUST [place] - 7 7 [facility] OUTPATIEN E T HOSPITALS OFFICE 50605 M[place]DO [place] OUTPATIEN 7 7 MEDICAL T VISIT SERV 25 FOUNDATIO MINUTES N [facility] 7 7 [facility] IN[facility] 6 6 [facility] E [facility] IN[facility] 6 6 [facility] E [facility] - 6 6 [facility] OUTPATIEN INC T OFFICE 50451 MUNDO BENAVIDES OUTPATIEN 6 6 MEDICAL T VISIT SERV 25 FOUNDATIO MINUTES N [facility] 6 6 [facility] E [facility] 6 6 [facility]ALTHCAR E OFFICE 86782 [facility] MEREDITH OUTPATIEN 6 6 PHYSICIAN MAT T VISIT S GROUP 25 MINUT[facility] HOSPITAL [facility] - 6 6 [facility] OUTPATIEN INC T [facility] 6 6 [facility] E [facility] 6 [facility] 6 6 [facility]ALTHCAR E OFFICE 35010 [facility] MEREDITH OUTPATIEN 6 6 PHYSICIAN MAT T VISIT S GROUP 25 MINUTES OFFICE 25637 [facility] MEREDITH OUTPATIEN 6 6 PHYSICIAN MAT T VISIT S GROUP 25 MINUTES HOSPITAL MEAWVIE - 6 6 W [facility] - 6 6 [facility] OUTPATIEN INC T OFFICE 11128 [facility] MEREDITH OUTPATIEN 6 6 PHYSICIAN MAT T VISIT S GROUP 25 MINUTES HOSPITAL PATRICIAWVIE - [address] [facility] [address] [facility] T OFFICE 16633 CARDIOVAS [facility] OUTPATIEN 6 6 CULAR MAT T VISIT CONSULTAN 25 TS O MINUTES EMERGENCY 35419 [facility] 5 5 [facility] DEPARTMEN INC T VISIT LOW/MODER SEVERITY [facility]OSPITAL [facility] - [address] [facility] T HOSPITAL LAURA - [address] [facility] T OFFICE 82504 CARDIOVAS [facility] OUTPATIEN 5 5 CULAR MAT T VISIT CONSULTAN 40 TS O MINUTES HOSPITAL [facility] 72999 [facility] 5 5 Y T VISIT 5 HOSPITAL [facility]A - [address] [facility] T EMERGENCY 09095 [facility] 5 5 [facility] DEPARTMEN INC T VISIT MODERATE SEVERITY [facility] - 5 5 [facility] - [address] [facility] T OFFICE 39360 MUNDO VICKIER OUTPATIEN 4 4 MEDICAL SHA T NEW SERV MINUTES FOUNDATIO N OFFICE 08381 [facility] 4 4 T VISIT 10 MINUTES OFFICE 40278 [facility] 4 4 T VISIT 10 MINUTES HOSPITAL [facility] - [address] [facility] T OFFICE 05878 ANNETTE BRYANT OUTPATIEN 4 4 DEUCE DEUCE T NEW 30 MINUTES HOSPITAL [facility] - 4 4 [facility] T OFF[facility] 79557 [facility] OUTPATIEN 4 4 PHYSICIAN JAM T VISIT S GROUP 15 MINUTES HOSPITAL [facility] - 3 3 [facility]IEN [facility] - 3 3 [facility]PATIEN [facility] HOSPITAL LAURA - 3 3 [facility] OUTPATIEN [facility] Emergency LINDSEY Sánchez MD (ER) 3 18:45 3 19:27 [facility] OFFICE 58945 TENRIISM VINH [facility] 3 3 NEUROLOGY [facility]YLAN T VISIT CENTER 15 [place] MINUTES HOSPITAL [facility] - 3 3 [facility] OUTPATIEN [facility] - 3 3 [facility] OUTPATIEN [facility] OFFICE 59749 [facility] 3 3 FOOT AND T NEW 20 ANKLE MINUTES CENTER OFFICE 06741 [facility] GE[facility]GE [facility] 3 3 [facility] VISIT HOSPITAL 25 MINUTES Emergency LINDSEY Patrick MD (ER) 3 23:50 3 01:33 [facility] EMERGENCY 28830 ERIC PATRICK DEPT 3 3 MEDICAL ARMANDO VISIT GROUP, HIGH PLLC SEVERITY& THREAT RUST [facility]A - 3 3 [facility] OUTPATIEN [facility] EMERGENCY 30979 LAURA [address] [facility] T VISIT HIGH/URGE NT SEVERITY EMERGENCY 31296 [facility] CHRIS 3 3 [facility] EMERGENCY T VISIT PHYSI MODERATE SEVERITY HOSPITAL [address] [facility] [address] T VISIT LOW/MODER SEVERITY OFFICE 68432 Mike MCBRIDEJUOlya-TAYE OUTPATIEN 3 3 [facility] T VISIT CARDIOLOG 15 Y CLINIC MINUTES [facility] - 3 3 [facility] OUTPATIEN INC OFFICE 12980 C ATNONETTENic GEORGE OUTPATIEN 2 2 DORIS Dillon MD PSC MINUTES OFFICE [address] [facility] 2 2 ZO Lacey VISIT CARDIOLOG 25 Y CLINIC MINUTES [facility]OSPITAL [facility] - 2 2 [facility] - 2 2 [facility] EMERGENCY 07255 [facility]UR[facility] 2 [address] [facility] T VISIT MODERATE SEVERITY [facility] - 2 2 [facility]EN [facility] EMERGENCY 58613 [facility] 2 [address] [facility] T VISIT HIGH/URGE NT SEVERITY [facility]OSPITAL [facility] - 2 2 [facility] OUTPATIEN [facility] EMERGENCY 17272 [facility] 2 [address] [facility] T VISIT LOW/MODER SEVERITY [facility] 2 2 [facility] - 1 1 [facility] - 1 1 [facility] EMERGENCY 00761 [facility] 1 [address] [facility] T VISIT HIGH/URGE NT SEVERITY [facility] - 1 1 [facility] - 1 1 [facility] 1 1 [facility] OFFICE 29325 [place] OUTPATIEN 1 1 MEDICAL JAM T NEW 60 SERV MINUTES [facility]URA - 1 1 [facility]EN [facility]UR[facility] - 1 1 [facility] OUTPATIEN INC T EMERGENCY 28596 AMANDA PATRICK DEPT 1 1 EMERGENCY ARMANDO VISIT SERVICES HIGH SEVERITY& THREAT FUNCJ EMERGENCY 71201 [facility] 1 1 [facility] DE[facility] INC T VISIT HIGH/URGE NT SEVERITY OFFICE 65409 LAURA MATHIS OUTPATIEN 1 1 [facility] 30 HOSPITAL MINUTES P OFFICE 73360 FAMILY MONOHAN OUTPATIEN 1 1 PRACT RONALD T VISIT ASSOC OF 25 [place] MINUTES OFFICE 59170 FAMILY MONOHAN OUTPATIEN 1 1 PRACT RONALD T VISIT ASSOC OF 25 [place] MINUTES EMERGENCY 54445 [facility] DESMOND DEPT 1 1 PRIMARY CARLOS VISIT CARE HIGH PHYSICANS SEVERITY& M THREAT FUNJ
--- OUTSIDE RECORDS SUMMARY | 2017-05-17 17:14 | External Medical Summary Rpt | CCD ---
Author Author , GRAHAM Organization GRAHAM Address Unknown Phone [email or web address] Care Team Providers Care Cargo Mate Name Role Phone [facility], [facility] Unavailable Unavailable [facility], [facility] Unavailable Unavailable RADHA BOY, RADHA Unavailable Unavailable BOY [facility] Unavailable Unavailable PHYSICANS M, [facility] M LEAL, LEAL Unavailable Unavailable [facility] Unavailable Unavailable [facility], [facility] Unavailable Unavailable [facility]OC[facility], [facility] DESMOND CARLOS, Unavailable Unavailable DESMOND CARLOS ANJUR-KAPALI DAY, Unavailable Unavailable ANJUR-KAPALI DAY MAGDALENA FAD, MAGDALENA FAD Unavailable Unavailable [facility] Un[facility] [place] BEINEKE GILMA, BEINEKE Unavailable Unavailable GILMA BESSON, BESSON Unavailable Unavailable BESSON JEANIE, BESSON Unavailable Unavailable JEANIE BESSON JEANIE, BESSON Unavailable Unavailable JEANIE ORDONEZ, ORDONEZ Unavailable Unavailable ORDONEZ ALL, ORDONEZ ALL Unavailable Unavailable BRAUDIS JAM, BRAUDIS Unavailable Unavailable JAM BRAUDIS JAM, BRAUDIS Unavailable Unavailable JAM [facility] Unavailable Unavailable SERVICE, [facility]available Unavailable SERVICE, [facility] DOBSON LAR, DOBSON LAR Unavailable [...] ERNST QUINTERO ERNST, Unavailable Unavailable QUINTERO ERNST [facility] Unavailable Unavailable [facility] VINH DYLAN, Unavailable Unavailable VINH DYLAN [...] ARMANDO AURY ARMANDO, AURY Unavailable Unavailable ARMANDO [facility] Unavailable Unavailable INC, [facility] Unavailable Unavailable HOSPITAL, [facility] Unavailable Unavailable HOSPITAL P, [facility] HEEB CHR, [facility]EEB [facility] Unavailable Unavailable [facility], [facility] Unavailable Unavailable [facility], [facility] Unavailable Unavailable [facility], Unavailable Unavailable [facility] Unavailable Unavailable [facility], [facility] KIERRA THO, KIERRA THO Unavailable Unavailable [facility] BRYANT, BRYANT Unavailable Unavailable BRYANT DEUCE, BRYANT Unavailable Unavailable DEUCE CHRIS EHSAN, CHRIS Unavailable Unavailable EHSAN HAROLDO JR DWI, HAROLDO Unavailable Unavailable JR DWI HAROLDO JR DWI, HAROLDO Unavailable Unavailable JR DWI [facility] Unavailable Unavailable 11, [facility] 11 [facility], Unavailable [facility]available [facility] Unavailable Unavailable ACTION, [facility] Kenya Patrick MD, Unavailable Unavailable Kenya BURRIS, Unavailable Unavailable ELENI KNOWLES JAM, Unavailable Unavailable KNOWLES JAM BENAVIDES, BENAVIDES Unavailable Unavailable BENAVIDES JAM, Unavailable Unavailable BENAVIDES JAM [facility] Un[facility] Unavailable MED[facility], [facility] Unavailable Unavailable MEDICAL, [facility] Unavailable Unavailable SERVICE, [facility] MONOHAN RONALD, MONOHAN Unavailable Unavailable RONALD SIEGEL JUAQUIN, SIEGEL Unavailable Unavailable JUAQUIN ONDINA, ONDINA Unavailable Unavailable ONDINA SHA, ONDINA Unavailable Unavailable SHA NEILS JONATHAN, NEILS JONATHAN Unavailable Unavailable [facility] Unavailable Unavailable URGENT TREAT, [facility] Unavailable Unavailable LABORATORY, [...] Unavailable Unavailable MEREDITH MAT EBONI Rose, EBONI oRse Unavailable Unavailable SKRIP JR., SKRIP JR. Unavailable Unavailable SKRIP JR. SELVIN, SKRIP Unavailable Unavailable JR. SELVIN [facility] Unavailable Unavailable [facility], [facility] Unavailable Unavailable TREATMENT A, [facility] Unavailable Unavailable EMERGENCY PHYSI, [facility]available Unavailable [facility], [facility], [facility]available [facility]available [facility] Unavailable Unavailable CLINIC, [facility]available Unavailable SURGERY C, [facility] Unavailable Unavailable HOSPITALS, [facility], Unavailable Unavailable [facility] WEHRMAN III MARCY, Unavailable Unavailable WEHRMAN III MARCY ZEKE BAR, ZEKE BAR Unavailable Unavailable ZEKE BAR, ZEKE BAR Unavailable Unavailable KALINA A, Unavailable Unavailable KALINA A Purpose Continuity of Care Document - 12-28-2010 through 2016 Problems Code Diagnosis DOS Provider Status D649 ANEMIA 04-11-2017 [facility] N390 URINARY 04-07-2017 [facility] TRACT [facility] INFECTION INC SITE NOT SPECIFIED I2510 ASHD KASHIA 04-06-2017 [facility] CORONARY HEALTHCARE ARTERY W/O ANGINA PECTORIS R627 ADULT 04-06-2017 [facility] FAILURE TO HEALTH THRIVE [facility]OCI[facility] G4733 OBSTRUCTIVE 04-04-2017 [facility] SLEEP [facility] APNEA ADULT INC PEDIATRIC I509 HEART 04-04-2017 [facility] FAILURE [facility] UNSPECIFIED INC J449 CHRONIC 04-04-2017 [facility] OBSTRUCTIVE [facility] PULMONARY INC DISEASE UNS R0602 SHORTNESS 04-04-2017 [place] [facility] R1310 DYSPHAGIA 04-04-2017 [place] [facility] R5383 OTHER 04-04-2017 [facility] R942 ABNORMAL 04-04-2017 [facility] RESULTS OF [facility] PULMONARY INC FUNCTION STUDIES E162 HYPOGLYCEMI 03-27-2017 [facility] A [facility] UNSPECIFIED ASSOCIATES B91891 OTHER LONG 03-21-2017 [facility] CURRENT ASSOCIATES DRUG THERAPY B351 TINEA 02-05-2017 SPECIAL UNGUIUM CARE PODIATRY OF [place] A08702 PAIN IN 02-05-2017 [facility] RIGHT TOES CARE PODIATRY OF [place] D42677 PAIN IN 02-05-2017 [facility] LEFT TOES CARE PODIATRY OF [place] R69 ILLNESS 01-16-2017 [facility] UNSPECIFIED TRANSPORTAT ION SER Z9989 DEPENDENCE 01-16-2017 [place] [facility] ON OTHER SERV ENABLING I2 TELECOM INTERNATIONA MACHINES & DEVICES B39455 PAIN IN 01-13-2017 [facility] RIGHT KNEE LLC Z02808 PAIN IN 01-13-2017 [facility] RIGHT LEG LLC K68270 PAIN IN 01-13-2017 [facility] RIGHT LOWER LLC LEG E119 TYPE 2 01-09-2017 [facility] DIABETES [facility] MELLITUS ASSOCIATES WITHOUT COMPLICATIO NS I10 ESSENTIAL 01-09-2017 [facility] PRIMARY [facility] HYPERTENSIO ASSOCIATES N R4182 ALTERED 01-09-2017 [facility] M[facility]AL [facility] STATUS ASSOCIATES UNSPECIFIED R531 WEAKNESS 01-09-2017 [facility] Z7409 OTHER 01-09-2017 [facility] REDUCED [facility] MOBILITY INC I517 CARDIOMEGAL 01-08-2017 [facility] Y LLC [id number] PAIN IN 01-04-2017 [place] [facility] W[facility]ST [facility] M7989 OTHER 01-04-2017 [facility] SPECIFIED MEDICAL SOFT TISSUE IMAGING ASS DISORDERS R609 EDEMA 01-04-2017 [facility] UNSPECIFIED [facility] INC E03973 PAIN IN 01-01-2017 [facility] RIGHT LLC FOREARM M7541 IMPINGEMENT 12-28-2016 [facility] SYNDROME PHYSICIANS OF RIGHT GROUP SHOULDER E6601 MORBID 12-19-2016 [facility] SEVERE PHYSICIANS OBESITY DUE GROUP TO EXCESS CALORIES E785 HYPERLIPIDE 12-19-2016 [facility] OSMANY PHYSICIANS UNSPECIFIED GROUP I119 HYPERTENSIV 12-19-2016 [facility] E HEART PHYSICIANS DISEASE GROUP WITHOUT HEART FAILURE N3000 ACUTE 12-12-2016 [facility] P HEMATURIA I272 OTHER 11-27-2016 [facility] MEM HOS[facility] PULMONARY INC HYPERTENSIO N N3001 ACUTE 11-21-2016 [place] CYSTITIS [facility] P HEMATURIA N54214 PAIN IN 11-16-2016 [place] RIGHT MEDICAL SHOULDER IMAGING ASS K140 GLOSSITIS 11-02-2016 [facility] R918 OTHER 10-11-2016 [facility] NONSPECIFIC LLC ABNORMAL FINDING OF LUNG FIELD R0682 TACHYPNEA 09-19-2016 [facility] NOT PHYSICIANS ELSEWHERE GROUP CLASSIFIED R072 PRECORDIAL 09-04-2016 [facility] PAIN PHYSICIANS, [facility] R0789 OTHER CHEST 09-04-2016 [facility] PA[facility] AMBULANCE SERVICE R079 CHEST PAIN 09-04-2016 [place] [facility] IM[facility]ING ASS Z955 PRESENCE OF 09-04-2016 [place] CORONARY [facility] P IMPLANT & GRAFT N56933 MECHANICAL 08-24-2016 [facility] MED[facility] PTOSIS OF SERV RIGHT FOUNDATION EYELID L22116 DERMATOCHAL 08-24-2016 [place] [facility] ASIS OF SERV RIGHT EYE FOUNDATION UNSPECIFIED EYELID G79623 DERMATOCHAL 08-24-2016 [place] [facility] ASIS OF SERV LEFT EYE FOUNDATION UNSPECIFIED EYELID G4730 SLEEP APNEA 06-07-2016 [facility] MEDICAL SERV UNSPECIFIED FOUNDATION E876 HYPOKALEMIA 05-29-2016 [facility] K219 GASTRO-ESOP 04-25-2016 [facility] REFLUX [facility] DISEASE [facility] P WITHOUT ESOPHAGITIS D40767 SPONDYLOSIS 04-04-2016 [place] W/O MEDICAL MYELOPATH/R IMAGING ASS ADICULOPATH Y CERV RGN M5032 OTH CERV 04-04-2016 [place] DISC MEDICAL DEGENERATIO IMAGING ASS N MID-CERVICA L REGION M542 CERVICALGIA 04-04-2016 [facility] M545 LOW BACK 04-04-2016 [place] PAIN MEDICAL IMAGING ASS M546 PAIN IN 04-04-2016 [place] THORACIC [facility] SPINE IMAGING ASS P147ZZS UNSPECIFIED 04-04-2016 [place] INJURY OF MEDICAL NECK IMAGING ASS INITIAL ENCOUNTER D4728XA UNSPECIFIED 04-04-2016 [place] INJURY MEDICAL LOWER BACK IMAGING ASS INITIAL ENCOUNTER K449 DIAPHRAGMAT 03-03-2016 [place] IC HERNIA [facility] P OBSTRUCTION OR GANGRENE Q27578 PERSONAL 03-03-[address] [place] [address] [facility] P DEPENDENCE I208 OTHER FORMS 02-25-2016 [facility] OF ANGINA PHYSICIANS PECTORIS GROUP A40216 ASHD KASHIA 02-25-2016 [facility] COR ART PHYSICIANS W/UNSTABLE GROUP ANGINA PECTORIS E662 MORBID 02-21-2016 [facility] W/ALVEOLAR HYPOVENTILA TION U17534 [facility] KASHIA 02-21-2016 [facility] W[facility] P ANGINA PECTORIS M654 RADIAL 02-16-2016 [facility] STYLOID [facility] TENOSYNOVIT INC IS DE QUERVAIN Q14909 OTHER 02-16-2016 [facility] SYNOVITIS [facility] AND INC TENOSYNOVIT IS RIGHT HAND I209 ANGINA 12-08-2015 [place] [facility] REGIONAL UNSPECIFIED MEDICAL N93573 ASHD KASHIA 12-08-2015 [facility] COR ART PHYSICIANS W/OTH FORMS GROUP ANGINA PECTORIS R0600 DYSPNEA 11-29-2015 [facility] UNSPECIFIED [facility]OS[facility] INC [id number] CONCUSSION 11-20-2015 [facility] W/LOC 30 [facility] P INITIAL ENCOUNTER P9087GJ UNSPECIFIED 11-20-2015 [facility] INJURY OF MEDICAL HEAD IMAGING ASS INITIAL ENCOUNTER L346NAA STRAIN 11-20-2015 [facility] P NECK LEVL INIT ENC [id number] CONTUSION 11-20-[address] [facility] P INITIAL ENCOUNTER Z043 ENCOUNTER 11-20-2015 [place] EXAM & MEDICAL OBSERVATION IMAGING ASS FOLLOW OT ACCIDENT R339 RETENTION 07-12-2015 [facility] JEANIE OF URINE UNSPECIFIED Q28511 PAIN IN 06-30-2015 [place] LEFT MEDICAL FINGERS IMAGING ASS T8796WW UNSPECIFIED 06-30-2015 [facility] INJURY LT MEDICAL WRIST HAND IMAGING ASS FINGERS INITIAL B353 TINEA PEDIS 06-08-2015 [facility] INC 10756 OBSTRUCTIVE 05-04-2015 [facility] [place] [place] [facility] [place] 12039 UNSPEC HTN 05-04-2015 [facility] HEART [facility]AR DISEASE [facility] WITHOUT O HEART FAIL 20611 COR 05-04-2015 [facility] ATHEROSLERO [facility] UNSPEC INC TYPE VESSEL KASHIA/MAHSA T 4160 PRIMARY 05-04-2015 [facility] PULMONARY LAR HYPERTENSIO CONSULTANTS N O 4168 OTHER 05-04-2015 [facility] CHRONIC [facility] PULMONARY INC HEART DISEASES 496 CHRONIC 05-04-2015 [facility] AIRWAY [facility] OBSTRUCTION INC NEC 50041 05-04-2015 [facility] ION SER V7284 UNSPECIFIED 05-04-2015 [facility] PRE-OPERATI INC VE EXAMINATION 3699 UNSPECIFIED 04-28-2015 [facility] LOSS 79969 UNSPECIFIED 04-28-2015 [facility] EYELID V7283 OTHER 04-28-[address] [facility] PRE-OPERATI VE EXAMINATION 05291 ACUTE 02-16-2015 [facility] RESPIRATORY FAILURE 4111 INTERMEDIAT 01-25-2015 [facility] E CORONARY LAR SYNDROME CONSULTANTS O 4293 CARDIOMEGAL 01-23-2015 [place] Y [facility] ASS 5920 CALCULUS OF 01-23-2015 [place] [facility]IDNEY [facility] 21710 UNSPECIFIED 01-23-2015 [place] RETENTION MEDICAL OF URINE IMAGING ASS 23708 ABDOMINAL 01-23-2015 [place] PA[place] RIGHT MEDICAL LOWER IMAGING ASS QUADRANT 01771 PAIN IN 01-03-2015 [place] JOINT MEDICAL PELVIC IMAGING ASS REGION AND THIGH 30912 DISPLCMT 01-03-2015 [place] THOR MEDICAL INTERVERT IMAGING ASS DISC WITHOUT MYELOPATHY 7231 CERVICALGIA 01-03-2015 [facility] 7241 PAIN IN 01-03-2015 [place] THORACIC MEDICAL SPINE IMAGING ASS 26887 CHEST PAIN 01-03-2015 [place] UNSPECIFIED MEDICAL IMAGING ASS 51211 HYPERTENSIV 12-28-2014 [facility] E HEART [facility] DISEASE INC UNSPEC W/HEART FAIL 4280 CONGESTIVE 12-28-2014 [facility] HEART [facility] FAILURE INC UNSPECIFIED 43762 ESOPHAGEAL 12-28-2014 [facility] REFLUX [facility] INC 11981 SHORTNESS 12-28-2014 [place] OF BREATH MEDICAL IMAGING ASS 10878 OTHER 12-18-2014 [facility] DYSPNEA AND [place] [address] MECHANICAL 04-01-2014 [place] [facility] PTOS[facility] 2449 UNSPECIFIED 03-18-2014 [facility] HOS[facility] HYPOTHYROID INC ISM 80704 PANNUS 02-18-2014 [facility] 5950 ACUTE 12-18-2013 [place] CYSTITIS [facility] P 11246 NOCTURNAL 12-18-2013 [place] ENURESIS [facility] P 91958 OTHER 11-24-2013 [facility] BE[facility] MUCOPURULEN T CONJUNCTIVI TIS 52938 UNSPECIFIED 10-02-2013 [place] URINARY [facility] P E 3831 CHRONIC 09-05-2013 [place] MASTOIDITIS MEM HOS[facility] INC 3839 UNSPECIFIED 09-05-2013 [facility] MASTOIDITIS INC 32038 UNSPECIFIED 09-05-2013 [place] OTALGIA [facility] INC 470 DEVIATED 09-05-2013 [place] NASAL MEDICAL SEPTUM IMAGING ASS 94650 OTHER 09-05-2013 [place] DISEASES OF MEDICAL NASAL IMAGING ASS CAVITY AND SINUSES 88312 ARTHRALGIA 09-05-2013 [facility] OF [facility] TEMPOROMAND INC IBULAR JOINT 58776 PAIN IN 08-15-2013 [facility] JOINT, PHYSICIANS FOREARM GROUP 64644 PAIN IN 08-15-2013 [place] JOINT, [facility] LOWER LEG INC 39469 PLICA 08-15-2013 [facility] SYNDROME PHYSICIANS GROUP 3540 CARPAL 06-23-2013 [place] TUNNEL [facility] SYNDROME INC V5869 LONG-TERM 06-23-2013 [place] (CURRENT) [facility] USE OF INC OTHER MEDICATIONS 2724 OTHER AND 05-23-2013 [place] P HYPERLIPIDE OSMANY 5180 PULMONARY 05-23-2013 [place] COLLAPSE [facility] 60381 ACUTE 05-08-2013 [facility] FOLLICULAR JAM CONJUNCTIVI TIS 61323 CONTACT AND 05-08-2013 ELENI ALLERGIC JAM DERMATITIS OF EYELID 87237 VITREOUS 05-08-2013 ELENI DEGENERATIO JAM N 3688 OTHER 04-16-2013 [facility] SPECIFIED [facility] [place] DISTURBANCE S 7820 DISTURBANCE 04-16-2013 [facility] OF SKIN NEUROLOGY SENSATION [facility] [place] 1101 DERMATOPHYT 04-11-2013 RAMÍREZ BURRIS OSIS OF NAIL 66656 ATHEROSCLER 04-11-2013 RAMÍ[facility] BURRIS OSIS KASHIA ART EXTREMITIES UNSPEC 7011 ACQUIRED 04-11-2013 RAMÍREZ BURRIS KERATODERMA 7295 PAIN IN 04-11-2013 RAMÍREZ BURRIS SOFT TISSUES OF LIMB 11868 SPONDYLOSIS 03-19-2013 [place] UNSPEC MEDICAL SITE W/O IMAGING ASS MENTION MYELOPATHY 7238 OTHER 03-19-2013 [place] SYNDROMES MEDICAL AFFECTING IMAGING ASS CERVICAL REGION 20410 DIAB W/O 02-13-2013 [facility] COMP TYPE [facility] II/UNS NOT INC STATED UNCNTRL 40294 BARRETTS 02-13-2013 [facility] ESOPHAGUS SUNITHA & DUBILIER 7871 HEARTBURN 02-13-2013 [facility] INC 92734 ONYCHIA AND 02-06-2013 [facility] PARONYCHIA AND ANKLE OF TOE CENTER 7030 INGROWING 02-06-2013 [facility] NAIL AND ANKLE CENTER 340 MULTIPLE 01-30-2013 [facility] 4149 UNSPECIFIED 01-30-2013 [place] CHRONIC [facility] HEART DISEASE 07323 OTHER 01-30-2013 [place] CONVULSIONS [facility] 26537 UNSPECIFIED 01-30-2013 [place] SLEEP [facility] 599.70 599.70 01-16-2013 [place] [facility] 782.0 782.0 SKIN 01-16-2013 [place] SENSATION [facility] DISTURB Hospital 786.05 786.05 01-16-2013 [place] SHORTNESS [facility] Hospital 30616 HEMATURIA 01-15-2013 [facility] HOSPITAL P 21292 ABDOMINAL 01-15-2013 [facility] PAIN, AMBULANCE UNSPECIFIED SERVICE SITE 10693 PUNCTATE 01-08-2013 [facility] N EMERGENCY PHYSI 65011 BLEPHARITIS 01-08-2013 [facility] UNSPECIFIED V7644 SPECIAL 11-13-2012 COMBINED SCREENING PHYSICIANS MALIGNANT LA NEOPLASM OF PROSTATE 5990 URINARY 11-11-2012 COMBINED TRACT PHYSICIANS INFECTION LA SITE NOT SPECIFIED 4019 UNSPECIFIED 10-28-2012 [facility] ESSENTIAL CARDIOLOGY HYPERTENSIO CLINIC N 21450 CORONARY 10-28-2012 [facility] ATHEROSCLER CARDIOLOGY OSIS [facility] CLINIC CORONARY ARTERY 27247 PAIN IN 10-27-2012 [facility]INT, [place] [address] PAIN IN 10-27-2012 [facility], MOBILE UPPER ARM DIAGNOSTIC SE 7823 EDEMA 09-19-2012 BRAUDIS JAM 16075 DIVERTICULO 08-08-2012 [facility] SIS OF MEM [facility]OS[facility] COLON INC 5693 HEMORRHAGE 08-08-2012 [facility] OF RECTUM [facility] AND ANUS INC V160 FM HX 08-01-2012 C AN[facility]ETTE MALIGNANT DORIS NEOPLASM PSC GASTROINTES TINAL TRACT V7651 SPECIAL 08-01-2012 C ANTONETTE SCREENING DORIS FOR PSC MALIGNANT NEOPLASMS COLON 4139 OTHER AND 03-25-2012 HAROLDO MARTINEZ UNSPECIFIED DWI ANGINA PECTORIS 5533 DIAPHRAGMAT 03-10-2012 [place] MARTHA W/O MEDICAL MENTION IMAGING ASS OBSTRUCTION /GANGREN 5718 OTHER 03-10-2012 [place] CHRONIC MEDICAL NONALCOHOLI IMAGING ASS C LIVER DISEASE 5939 UNSPECIFIED 03-10-2012 [place] DISORDER MEDICAL OF KIDNEY IMAGING ASS AND URETER 7881 DYSURIA 03-07-2012 [facility] INC 4589 UNSPECIFIED 03-04-2012 WEHRMAN III MARCY HYPOTENSION 5849 ACUTE 03-04-2012 WEHRMAN III KIDNEY MARCY FAILURE UNSPECIFIED 7224 DEGENERATIO 01-25-2012 [place] N OF MEDICAL CERVICAL IMAGING ASS INTERVERTEB RAL DISC 7842 SWELLING 01-25-2012 WEHRMAN III MASS OR MARCY LUMP IN HEAD AND NECK 7856 ENLARGEMENT 01-25-2012 [place] OF LYMPH MEDICAL NODES IMAGING ASS 24172 DYSPHAGIA 01-25-2012 [facility] UNSPECIFIED AMBULANCE SERVICE 1122 CANDIDIASIS 01-11-2012 [facility] MARCY OF OTHER UROGENITAL SITES 14958 OTHER 01-11-2012 [facility] CANDIDIASIS [facility] OF OTHER INC SPECIFIED SITES 7912 HEMOGLOBINU 01-11-2012 [facility] AMBULANCE SERVICE 48151 NONSPECIFIC 09-11-2011 ZEKE BAR ABNORMAL ELECTROCARD IOGRAM 69272 HYPERSOMNIA 07-18-2011 [facility] WITH SLEEP ERNST APNEA UNSPECIFIED 64702 ABDOMINAL 07-04-2011 [facility] PAIN, AMBULANCE PERIUMBILIC SERVICE 6010 ACUTE 07-03-2011 [facility] ARMANDO PROSTATITIS 6019 UNSPECIFIED 07-03-2011 [facility]OSP PROSTATITIS INC 80432 ASTHMA, 06-14-2011 BESSON JEANIE UNSPECIFIED , UNSPECIFIED STATUS 20327 OTHER CHEST 06-14-2011 [facility] JEANIE PAIN 17091 OTHER 06-13-2011 [place] NONSPECIFIC MEDICAL ABNORMAL IMAGING ASS FINDING OF LUNG FIELD 75209 MORBID 05-31-2011 MD MEDICAL OBESITY SERV FOUNDATIO 4778 ALLERGIC 05-31-2011 MD MEDICAL RHINITIS SERV DUE TO FOUNDATIO OTHER ALLERGEN 77979 APNEA 05-31-2011 [facility] HOSP INC 7019 UNSPECIFIED 05-19-2011 OR[facility] PATHOLOGY HYPERTROPHI LABORATORY C&ATROPHIC CONDITION SKIN 5210 DENTAL 05-16-2011 THE IMPLANT CARIES & ORAL SURGERY C 17287 UNSPECIFIED 05-08-2011 MAR[facility] VISION BLEPHAROCON JUNCTIVITIS 7862 COUGH 04-26-2011 [facility] 81249 UNSPECIFIED 03-30-2011 [place] [facility] [place] CONJUNCTIVI URGENT TIS TREAT 97490 PAIN IN 03-30-2011 [facility], HAND MOBILE DIAGNOSTIC SE 6961 OTHER 03-23-2011 [facility] [place] PSORIASIS URGENT AND SIMILAR TREATMENT A DISORDERS 05934 OBESITY, 03-12-2011 [facility] [place] UNSPECIFIED URGENT TREATMENT A 85669 INSOMNIA 03-12-2011 [facility] [place] UNSPECIFIED URGENT TREATMENT A 514 PULMONARY 03-02-2011 [facility] CONGESTION MOBILE AND DIAGNOSTIC HYPOSTASIS SE 7242 LUMBAGO 02-25-2011 [place] [place] URGENT TREATMENT A 7245 UNSPECIFIED 02-10-2011 [facility] V771 SCREENING 02-10-2011 [facility] FOR PRACT ASSOC DIABETES OF [place] PS MELLITUS 5968 OTHER 12-28-2010 [facility] [place] SPECIFIED RADIOLOGY DISORDERS OF BLADDER 81893 DIARRHEA 12-28-2010 [facility] M [...] 00 RE 32 ES 44 17 17 PR IU 9 PH CH M AR AE CI MA L TR CY S AT E LL SO C BRYAN TI ON ST 00 03 10 0 30 30 ME 15 GA Ac OO 53 -1 -0 0. D 04 IN ti L 61 9- 2- 00 CA 39 EY ve SO 06 20 20 0 RE 09 FT 41 17 17 PR EN 0 PH CH ER AR AE MA L 25 CY S 0 MG LL C SO FT GE L LO 00 03 10 0 30 30 ME 15 GA Ac RA 78 -1 -0 0. D 04 IN ti TA 15 9- 2- 00 CA 39 EY ve DI 07 20 20 0 RE 10 NE 70 17 17 PR 1 PH CH 10 AR AE MA L MG CY S TA LL BL C ET BRYAN 00 03 09 0 30 7 ME 15 GA Ac BR 90 -1 -2 0. D 04 IN ti IC 46 8- 9- 00 CA 01 EY ve AT 32 20 20 0 RE 54 IN 94 17 17 PR G [address] AR AE US MA L CY S 0. 5% LL C EY E DR PS 00 03 09 0 30 30 ME 15 GA Ac PI 90 -1 -2 0. D 00 IN ti RI 46 9- 6- 00 CA 60 EY ve N 28 20 20 0 RE 67 81 88 17 17 PR 9 PH CH MG AR AE MA L CH CY S EW AB LL LE C TA BL ET AC 00 03 09 0 35 15 ME 14 GA Ac ID 90 -0 -1 50 D 96 IN ti 47 4- 5- .0 CA 35 EY ve GO 72 20 20 00 RE 99 NE 71 17 17 PR 4 PH CH AN AR AE TA MA L CI CY S D LI LL QU C ID MA 00 06 09 0 30 30 ME 14 GA Ac GN 60 -2 -1 0. D 94 IN ti ES 30 1- 5- 00 CA 75 EY ve IU 20 20 20 0 RE 67 M 92 17 17 PR OX 2 PH CH ID AR AE E MA L 40 CY S 0 MG LL C TA BL ET ST 00 03 09 0 30 30 ME 14 GA Ac OO 53 -1 -0 0. D 87 IN ti L 61 9- 2- 00 CA 29 EY ve SO 06 20 20 0 RE 28 FT 41 17 17 PR EN 0 PH CH ER AR AE MA L 25 CY S 0 MG LL C SO FT GE L LO 00 03 09 0 30 30 ME 14 GA Ac RA 78 -1 -0 0. D 87 IN ti TA 15 9- 2- 00 CA 29 EY ve DI 07 20 20 0 RE 29 NE 70 17 17 PR 1 PH CH 10 AR AE MA L MG CY S TA LL BL C ET 00 03 08 0 30 30 ME 14 GA Ac PI 90 -1 -2 0. D 83 IN ti RI 46 9- 8- 00 CA 86 EY ve N 28 20 20 0 RE 95 81 88 17 17 PR 9 PH CH MG AR AE MA L CH CY S EW AB LL LE C TA BL ET BRYAN 00 03 08 0 30 7 ME 14 GA Ac BR 90 -1 -2 0. D 82 IN ti IC 46 8- 4- 00 CA 01 EY ve AT 32 20 20 0 RE 42 IN 94 17 17 PR G [address] AR AE US MA L CY S 0. 5% LL C EY E DR PS BRYAN 00 03 08 0 30 7 ME 14 GA Ac BR 90 -1 -1 0. D 79 IN ti IC 46 8- 8- 00 CA 87 EY ve AT 32 20 20 0 RE 03 IN 94 17 17 PR G [address] AR AE US MA L CY S 0. 5% LL C EY E DR PS MA 00 06 08 0 30 30 ME 14 GA Ac GN 60 -2 -1 0. D 77 IN ti ES 30 1- 6- 00 CA 18 EY ve IU 20 20 20 0 RE 99 M 92 17 17 PR OX 2 PH CH ID AR AE E MA L 40 CY S 0 MG LL C TA BL ET ST 00 03 08 0 30 30 ME 14 GA Ac OO 53 -1 -0 0. D 70 IN ti L 61 9- 4- 00 CA 77 EY ve SO 06 20 20 0 RE 91 FT 41 17 17 PR EN 0 PH CH ER AR AE MA L 25 CY S 0 MG LL C SO FT GE L LO 00 03 08 0 30 30 ME 14 GA Ac RA 78 -1 -0 0. D 70 IN ti TA 15 9- 4- 00 CA 77 EY ve DI 07 20 20 0 RE 92 NE 70 17 17 PR 1 PH CH 10 AR AE MA L MG CY S TA LL BL C ET 00 03 07 0 30 30 ME 14 GA Ac PI 90 -1 -3 0. D 69 IN ti RI 46 9- 1- 00 CA 21 EY ve N 28 20 20 0 RE 07 81 88 17 17 PR 9 PH CH MG AR AE MA L CH CY S EW AB LL LE C TA BL ET BRYAN 00 03 07 0 30 7 ME 14 GA Ac BR 90 -1 -2 0. D 68 IN ti IC 46 8- 9- 00 CA 73 EY ve AT 32 20 20 0 RE 52 IN 94 17 17 PR G [address] AR AE US MA L CY S 0. 5% LL C EY E DR PS MA 00 06 07 0 30 30 ME 14 GA Ac GN 60 -2 -1 0. D 63 IN ti ES 30 1- 9- CA 33 EY ve IU 20 20 20 0 RE 43 M 92 17 17 PR OX 2 PH CH ID AR AE E MA L 40 CY S 0 MG LL C TA BL ET AC 00 03 07 0 35 15 ME 14 GA Ac ID 90 -0 -1 50 D 62 IN ti 47 4- 8- .0 CA 01 EY ve GO 72 20 20 00 RE 68 NE 71 17 17 PR 4 PH CH AN AR AE TA MA L CI CY S D LI LL QU C ID BRYAN 00 03 07 0 30 7 ME 14 GA Ac BR 90 -1 -1 0. D 60 IN ti IC 46 8- 5- 00 CA 60 EY ve AT 32 20 20 0 RE 69 IN 94 17 17 PR G [address] AR AE US MA L CY S 0. 5% LL C EY E DR PS ST 00 03 07 0 30 30 ME 14 GA Ac OO 53 -1 -0 0. D 53 IN ti L 61 9- 6- 00 CA 43 EY ve SO 06 20 20 0 RE 01 FT 41 17 17 PR EN 0 PH CH ER AR AE MA L 25 CY S 0 MG LL C SO FT GE L LO 00 03 07 0 30 30 ME 14 GA Ac RA 78 -1 -0 0. D 53 IN ti TA 15 9- 6- 00 CA 43 EY ve DI 07 20 20 0 RE 02 NE 70 17 17 PR 1 PH CH 10 AR AE MA L MG CY S TA LL BL C ET 00 03 07 0 30 30 ME 14 GA Ac PI 90 -1 -0 0. D 50 IN ti RI 46 9- 3- 00 CA 60 EY ve N 28 20 20 0 RE 43 81 88 17 17 PR 9 PH CH MG AR AE MA L CH CY S EW AB LL LE C TA BL ET BRYAN 00 03 06 0 30 7 ME 14 GA Ac BR 90 -1 -3 0. D 50 IN ti IC 46 8- 0- 00 CA 79 EY ve AT 32 20 20 0 RE 90 IN 94 17 17 PR G [address] AR AE US MA L CY S 0. 5% LL C EY E DR PS BRYAN 00 03 06 0 30 7 ME 14 GA Ac BR 90 -1 -1 0. D 42 IN ti IC 46 8- 7- 00 CA 66 EY ve AT 32 20 20 0 RE 58 IN 94 17 17 PR G [address] AR AE US MA L CY S 0. 5% LL C EY E DR PS AC 00 03 06 0 35 15 ME 14 GA Ac ID 90 -0 -1 50 D 41 IN ti 47 4- 6- .0 CA 27 EY ve GO 72 20 20 00 RE 46 NE 71 17 17 PR 4 PH CH AN AR AE TA MA L CI CY S D LI LL QU C ID ST 00 03 06 0 30 30 ME 14 GA Ac OO 53 -1 -0 0. D 33 IN ti L 61 9- 7- 00 CA 82 EY ve SO 06 20 20 0 RE 41 FT 41 17 17 PR EN 0 PH CH ER AR AE MA L 25 CY S 0 MG LL C SO FT GE L LO 00 03 06 0 30 30 ME 14 GA Ac RA 78 -1 -0 0. D 33 IN ti TA 15 9- 7- 00 CA 82 EY ve DI 07 20 20 0 RE 42 NE 70 17 17 PR 1 PH CH 10 AR AE MA L MG CY S TA LL BL C ET RO 00 03 06 0 47 10 ME 14 GA Ac BA 90 -1 -0 30 D 33 IN ti FE 40 9- 5- .0 CA 30 EY ve N 06 20 20 00 RE 41 10 11 17 17 PR 0 6 PH CH MG AR AE /5 MA L CY S ML LL SY C RU P 00 03 06 0 30 30 ME 14 GA Ac PI 90 -1 -0 0. D 31 IN ti RI 46 9- 3- 00 CA 43 EY ve N 28 20 20 0 RE 67 81 88 17 17 PR 9 PH CH MG AR AE MA L CH CY S EW AB LL LE C TA BL ET MA 00 03 06 0 30 5 ME 14 GA Ac PA 90 -1 -0 0. D 31 IN ti P 41 9- 2- 00 CA 57 EY ve 50 98 20 20 0 RE 45 0 86 17 17 PR MG 1 PH CH AR AE TA MA L BL CY S ET LL C MA 00 12 05 0 30 30 ME 14 GA Ac GN 60 -0 -2 0. D 24 IN ti ES 30 3- 4- 00 CA 08 EY ve IU 20 20 20 0 RE 98 M 92 16 17 PR OX 2 PH CH ID AR AE E MA L 40 CY S 0 MG LL C TA BL ET BRYAN 00 03 05 0 50 7 ME 14 GA Ac BR 90 -1 -2 0. D 23 IN ti IC 46 8- 2- 00 CA 59 EY ve AT 32 20 20 0 RE 61 IN 95 17 17 PR G [address] AR AE US MA L CY S 0. 5% LL C EY E DR PS AC 00 03 05 0 35 15 ME 14 GA Ac ID 90 -0 -1 50 D 22 IN ti 47 4- 8- .0 CA 17 EY ve GO 72 20 20 00 RE 35 NE 71 17 17 PR 4 PH CH AN AR AE TA MA L CI CY S D LI LL QU C ID ST 00 03 05 0 30 30 ME 14 GA Ac OO 53 -1 -1 0. D 17 IN ti L 61 9- 0- 00 CA 23 EY ve SO 06 20 20 0 RE 20 FT 41 17 17 PR EN 0 PH CH ER AR AE MA L 25 CY S 0 MG LL C SO FT GE L LO 00 03 05 0 30 30 ME 14 GA Ac RA 78 -1 -1 0. D 17 IN ti TA 15 9- 0- 00 CA 23 EY ve DI 07 20 20 0 RE 21 NE 70 17 17 PR 1 PH CH 10 AR AE MA L MG CY S TA LL BL C ET BRYAN 00 03 05 0 30 7 ME 14 GA Ac BR 90 -1 -0 0. D 15 IN ti IC 46 8- 5- 00 CA 88 EY ve AT 32 20 20 0 RE 83 IN 94 17 17 PR G [address] AR AE US MA L CY S 0. 5% LL C EY E DR PS 00 03 05 0 30 30 ME 14 GA Ac PI 90 -1 -0 0. D 14 IN ti RI 46 9- 5- 00 CA 96 EY ve N 28 20 20 0 RE 45 81 88 17 17 PR 9 PH CH MG AR AE MA L CH CY S EW AB LL LE C TA BL ET MA 00 12 04 0 30 30 ME 14 GA Ac GN 60 -0 -2 0. D 09 IN ti ES 30 3- 6- 00 CA 84 EY ve IU 20 20 20 0 RE 88 M 92 16 17 PR OX 2 PH CH ID AR AE [...] AR AR ME MA D CY W MI OT LL EC C T PA ST E RE 53 11 11 0 11 5 ME 13 AR Ac ME 32 -2 -2 30 D 36 NO ti DY 90 8- 8- .0 CA 88 LD ve 16 20 20 00 RE 63 CA 54 16 16 RI LA 4 PH CH ZI AR AR ME MA D CY W MI OT LL EC C T PA ST [...] AR AR ME MA D CY W MI OT LL EC C T PA ST [...] AR AR ME MA D CY W MI OT LL EC C T PA ST [...] AR AR ME MA D CY W MI OT LL EC C T PA ST [...] AR AR ME MA D CY W MI OT LL EC C T PA ST [...] TA CY W BL ET LL C MI 37 08 10 3 30 30 ME [...] TA CY W BL ET LL C MI 37 08 09 3 30 30 ME [...] D BL CY W ET LL C MI 37 08 08 3 30 30 ME [...] Procedure DOS Code Location Performer Comment BLOOD [id number] HEMOGLOBI ASSOCIATE ASSOCIATE N S S BLOOD [address] [place] [address] HEMATOCRI ASSOCIATE ASSOCIATE T S S J CARLOS V G0471 [address] PORTRAIT CONSULTANT/URN ASSOCIATE ASSOCIATE [place] CATH S S IND SNF/LAB BHALF PHOTOCOPIER TECHNICIAN TRAVEL [phone] NEC SEGMENTAL WALL INSTALLER ASSOCIATE SPEC; S S PRORAT ACTL MILE COLOREC G0328 LAURA SANCHEZ CA SCR; 7 [facility] FOB TST INC INC IMMUNO 1-3 SIMULTANE OUS URNLS DIP 23233 LAURA SANCHEZ 7 [facility] STICK/TAB INC INC LET REAGENT AUTO MICROSCOP Y BLOOD [address] [place] [address] COMPLETE ASSOCIATE ASSOCIATE AUTO&AUTO S S DIFRNTL WBC O2 CONC 1 E1390 MAR[facility]N FRAZIER [facility] HE[facility] 85%/>02 E E CONC AT [facility] FLW RATE J CARLOS V G0471 [address] PORTRAIT CONSULTANT/URN ASSOCIATE ASSOCIATE [place] CATH S S IND SNF/LAB BHALF PHOTOCOPIER TECHNICIAN TRAVEL [phone] NEC SEGMENTAL WALL INSTALLER ASSOCIATE SPEC; S S PRORAT ACTL MILE PRTBLE E0434 MARLYN SALAZART LQD O2 7 HEALTHCAR HEALTHCAR SYS RENT; E E RESRVOR HUMIDFR FLWMTR TRAVEL [phone] NEC SEGMENTAL WALL INSTALLER ASSOCIATE SPEC; S S PRORAT ACTL MILE J CARLOS V G0471 [place] [address] HEALTH HEALTH PORTRAIT CONSULTANT/URN ASSOCIATE ASSOCIATE SMP CATH S S IND SNF/LAB BHALF PHOTOCOPIER TECHNICIAN BLOOD 30499 [place] [address] HEALTH HEALTH COMPLETE ASSOCIATE ASSOCIATE AUTO&AUTO S S DIFRNTL WBC CT THORAX 99842 LAURA SANCHEZ W/O 7 [facility] CONTRAST INC INC MATERIAL CT SOFT 13048 LAURA LAURA TISSUE 7 [facility] NECK W/O INC INC CONTRAST MATERIAL HEMOGLOBI [id number]OSYLA ASSOCI[address] ASSOCI[address] COURT A1C S S J CARLOS V G0471 [address] HEALTH PORTRAIT CONSULTANT/URN ASSOCIATE ASSOCIATE [place]RE[place] SANCHEZ S S IND SNF/LAB BH[place] [address] [facility] THYROID [address] [place] [address] STIMULATI ASSOCIATE ASSOCIATE NG S S HORMONE TSH TRAVEL [phone] NEC SEGMENTAL WALL INSTALLER ASSOCIATE SPEC; S S PRORAT ACTL MILE URNLS DIP 98732 LAURA LEAL [address] [place] [address] LET RGNT P NON-AUTO W/O MICRSCP O2 CONC 1 E1390 [facility] 7 HEALTHCAR HEALTHCAR 85%/>02 E E CONC AT PRSC FLW RATE O2 CONC 1 E1390 [place] [facility] 7 HEALTHCAR HEALTHCAR 85%/>02 E E CONC AT PRS FLW RATE DEBRIDEME 72551 SPECIAL VICTORIANO [place] NT NAIL 7 CARE ANY PODIATRY METHOD OF YAMIL 6/> LIPID 24704 [place] [facility] 7 HEALTH HEALTH ASSOCIATE ASSOCIATE S S J CARLOS V G0471 [place] [address] HEALTH HEALTH PORTRAIT CONSULTANT/URN ASSOCIATE ASSOCIATE SMP CATH S S IND SNF/LAB BHALF PHOTOCOPIER TECHNICIAN NONEMERGE A0130 FEDERATED FEDERATED NCY 7 TRANS TRANSPORT TRANSPORT SERVBLUEG ATION: ATION SER TOSHA [place] VAN TRAVEL 1 P9603 [place] [address] HEALTH HEALTH NEC SEGMENTAL WALL INSTALLER ASSOCIATE SPEC; S S PRORAT ACTL MILE RADIOLOGI 43299 [facility] [facility] 7 [facility] LLC EXAMINATI ON KNEE 1/2 VIEWS TRANS R0070 [facility] PRTBL 7 LLC LLC X-RAY EQP&PERS RICHMOND/NRS RICHMOND-TRIP 1 PT RADIOLOGI 16748 [facility] LLC EXAMINATI ON FEMUR MINIMUM 2 VIEWS SET-UP Q0092 [place] [facility] PORTABLE 7 LLC LLC X-RAY EQUIPMENT RADIOLOGI 93382 [facility] [facility] C [facility] LLC EXAMINATI ON TIBIA & FIBULA 2 VIEWS BLOOD 04833 [place] COUNT 7 HEALTH HEALTH COMPLETE ASSOCIATE ASSOCIATE AUTO&AUTO S S DIFRNTL WBC URNLS DIP 58427 LAURA SANCHEZ 7 [facility] STICK/TAB INC INC LET REAGENT AUTO MICROSCOP Y COMPREHEN 16266 [place] SIVE 7 HEALTH HEALTH METABOLIC ASSOCIATE ASSOCIATE PANEL S S J CARLOS V G0471 [place] BLD 7 HEALTH HEALTH PORTRAIT CONSULTANT/URN ASSOCIATE ASSOCIATE SMP CATH S S IND SNF/LAB BHALF PHOTOCOPIER TECHNICIAN TRAVEL 1 P9603 [place] [address] HEALTH HEALTH NEC SEGMENTAL WALL INSTALLER ASSOCIATE SPEC; S S PRORAT ACTL MILE RADIOLOGI 95431 [facility] C 7 LLC LLC EXAMINATI ON CHEST SINGLE VIEW FRONTAL TRANS R0070 [facility] PRTBL 7 LLC LLC X-RAY EQP&PERS RICHMOND/NRS RICHMOND-TRIP 1 PT SET-UP Q0092 [facility] [facility] PORTABLE 7 LLC LLC X-RAY EQUIPMENT O2 CONC 1 E1390 MARLYN FRAZIER [facility] 7 HEALTHCAR HEALTHCAR 85%/>02 E E CONC AT PRSC FLW RATE RADEX 96174 NICKI ORDONEZ WRIST 7 MEDICAL COMPLETE IMAGING MINIMUM 3 ASS VIEWS RADEX 70853 RONNELL [facility] WRIST 7 [facility] LLC COMPLETE MINIMUM 3 VIEWS TRANS R0070 [facility] [facility] PRTBL 7 [facility] X-RAY EQP&PERS RICHMOND/NRS RICHMOND-TRIP 1 PT SET-UP Q0092 [place] [facility] PORTABLE 7 [facility] X-RAY EQUIPMENT RADEX 00896 [place] [facility] FOREARM 2 7 [facility] LLC VIEWS NONEMERGE A0130 FEDERATED FEDERATED NCY 7 TRANS TRANSPORT TRANSPORT SERVBLUEG ATION: ATION SER TOSHA RAMIREZ NONEMERGE A0130 FEDERATED FEDERATED NCY 7 TRANS TRANSPORT TRANSPORT SERVBLUEG ATION: ATION SER TOSHA RAMIREZ J CARLOS V G0471 [place] BLD 7 HEALTH HEALTH PORTRAIT CONSULTANT/URN ASSOCIATE ASSOCIATE [place]RE[place] CATH S S IND SNF/LAB BHALF PHOTOCOPIER TECHNICIAN NATRIURET 71118 [place] 7 HEALTH HEALTH PEPTIDE ASSOCIATE ASSOCIATE S S TRAVEL 1 P9603 [place] [facility] 7 HEALTH HEALTH NEC SEGMENTAL WALL INSTALLER ASSOCIATE SPEC; S S PRORAT ACTL MILE ECG 94806 LAURA SANCHEZ ROUTINE 7 [facility] ECG INC INC W/LEAST 12 LDS TRCG ONLY W/O I&R ECG 03167 [facility] ROUTINE 7 PHYSICIAN ECG S GROUP W/LEAST 12 LDS I&R ONLY NONEMERGE A0130 FEDERATED FEDERATED NCY 7 TRANS TRANSPORT TRANSPORT SERVBLUEG ATION: ATION SER TOSHA RAMIREZ URNLS DIP 30885 [place] [address] HEALTH HEALTH STICK/TAB ASSOCIATE ASSOCIATE CATHY Galindo S REAGENT AUTO MICROSCOP Y CULTURE 96271 [place] BACTERIAL 7 HEALTH HEALTH ASSOCIATE ASSOCIATE QUANTTAINES Galindo VE COLONY COUNT URINE NONEMERGE A0130 FEDERATED FEDERATED NCY 7 TRANS TRANSPORT TRANSPORT SERVBLUEG ATION: ATION SER TOSHA RAMIREZ O2 CONC 1 E1390 [place] [facility] HEALTHCAR HEALTHCAR 85%/>02 E E CONC AT [facility] FLW RATE NONEMERGE A0130 FEDERATED FEDERATED NCY 7 TRANS TRANSPORT TRANSPORT SERVBLUEG ATION: ATION SER TOSHA RAMIREZ GAS 56273 LAURA SANCHEZ DILUT/WAS 7 [facility] HOUT LUNG INC INC VOL W/WO DISTRIB VENT&[place] [address] LAURA SANCHEZ DIFFUSING 7 [facility] CAPACITY INC INC BRNCDILAT 20760 LAURA SANCHEZ RSPSE 7 [facility] SPMTRY INC INC PRE&POST- BRNCDILAT ADMN PRESSURIZ 43593 LAURA SANCHEZ ED/NONPRE 7 [facility] SSURIZED INC INC INHALATIO N TREATMENT CULTURE 86240 LAURA SANCHEZ BCT 7 [facility] ISOL&PRSM INC INC PTV ID ISOLATE EA URINE CULTURE 19512 LAURA SANCHEZ BACTERIAL 7 [facility] INC INC QUANTTATI VE COLONY COUNT URINE SUSCEPTIB 80630 LAURA SANCHEZ LTY STDY 7 [facility] ANTIMICRB INC INC IAL MICRO/AGA R DILUTJ NONEMERGE A0130 FEDERATED FEDERATED NCY 7 TRANS TRANSPORT TRANSPORT SERVBLUEG ATION: ATION SER TOSHA RAMIREZ URNLS DIP 73190 LAURA LEAL 7 [facility] LET RGNT P NON-AUTO W/O MICRSCP O2 CONC 1 E1390 [facility] HEALTHCAR HEALTHCAR 85%/>02 E E CONC AT [facility] FLW RATE NONEMERGE A0130 FEDERATED FEDERATED NCY 7 TRANS TRANSPORT TRANSPORT SERVBLUEG ATION: ATION SER TOSHA RAMIREZ RADEX 43973 LAURA SANCHEZ SHOULDER 7 [facility] COMPLETE INC INC MINIMUM 2 VIEWS FOR DIAB A5512 [place] [place] ONLY MX 7 MEDICAL MEDICAL DNSITY SUPPLY SUPPLY INSRT DIR LLC LLC FORMD PRFAB EA DIAB ONLY A5500 [place] FIT CSTM 7 MEDICAL MEDICAL PREP&SPL SUPPLY SUPPLY SHOE MX LLC LLC DNSITY INSRT URNLS DIP 55821 LAURA SANCHEZ 7 [facility] STICK/TAB INC INC LET REAGENT AUTO MICROSCOP Y DEBRIDEME 95211 SPECIAL SKRIP JR. NT NAIL 7 CARE ANY PODIATRY METHOD OF YAMIL 6/> NONEMERGE A0130 FEDERATED FEDERATED NCY 7 TRANS TRANSPORT TRANSPORT SERVBLUEG ATION: ATION SER TOSHA LIBERTADI R VAN SET-UP Q0092 [facility] PORTABLE 7 [facility] LLC X-RAY EQUIPMENT RADEX 70350 [facility] SHOULDER 7 LLC LLC COMPLETE MINIMUM 2 VIEWS TRANS R0070 [facility] PRTBL 7 LLC LLC X-RAY EQP&PERS RICHMOND/NRS RICHMOND-TRIP 1 PT TRANS R0070 [facility] PRTBL 7 LLC LLC X-RAY EQP&PERS RICHMOND/NRS RICHMOND-TRIP 1 PT RADIOLOGI 64760 [facility] C 7 LLC LLC EXAMINATI ON CHEST SINGLE VIEW FRONTAL SET-UP Q0092 [facility] PORTABLE 7 LLC LLC X-RAY EQUIPMENT SET-UP Q0092 [facility] PORTABLE 7 LLC LLC X-RAY EQUIPMENT RADIOLOGI 67633 [facility] C 7 LLC LLC EXAMINATI ON CHEST SINGLE VIEW FRONTAL TRANS R0075 [facility] PRTBL 7 LLC LLC XRAY EQP&PERS RICHMOND/NRS RICHMOND-TRIP> 1 PT O2 CONC 1 E1390 MAR[facility]N FRAZIER [facility] 7 HEALTHCAR HEALTHCAR 85%/>02 E E CONC AT [facility] FLW RATE J CARLOS V G0471 [place] BLD 7 HEALTH HEALTH PORTRAIT CONSULTANT/URN ASSOCIATE ASSOCIATE SMP CATH S S IND SNF/LAB BHALF PHOTOCOPIER TECHNICIAN BLOOD 68927 [place] COUNT 7 HEALTH HEALTH COMPLETE ASSOCIATE ASSOCIATE AUTO&AUTO S S DIFRNTL WBC BASIC 20559 [place] METABOLIC 7 HEALTH HEALTH PANEL ASSOCIATE ASSOCIATE CALCIUM S S TOTAL TRAVEL 1 P9603 [place] [facility] MED 7 HEALTH HEALTH [facility] SEGMENTAL WALL INSTALLER ASSOCIATE SPEC; S S PRORAT ACTL MILE ECG 85547 LAURA SANCHEZ ROUTINE 7 [facility] ECG INC INC W/LEAST 12 LDS TRCG ONLY W/O I&R ECG 75547 [facility] ROUTINE 7 PHYSICIAN ECG S GROUP W/LEAST 12 LDS I&R ONLY NONEMERGE A0130 FEDERATED FEDERATED NCY 7 TRANS TRANSPORT TRANSPORT SERVBLUEG ATION: ATION SER TOSHA Dobson VAN O2 CONC 1 E1390 [facility] [place] 7 HEALTHCAR HEALTHCAR 85%/>02 E E CONC AT [facility] FLW RATE AMBULANCE A0428 [facility] SERVICE 7 AMBULANCE AMBULANCE BLS SERVICE SERVICE NONEMERGE [facility] TRANSPORT GROUND A0425 [facility] MILEAGE 7 AMBULANCE AMBULANCE PER SERVICE SERVICE STATUTE MILE GROUND A0425 [facility] MILEAGE 7 AMBULANCE AMBULANCE PER SERVICE SERVICE STATUTE MILE RADIOLOGI 45884 [facility] C 7 MEDICAL EXAMINATI IMAGING ON CHEST ASS SINGLE VIEW FRONTAL AMB A0427 [facility] SERVICE 7 AMBULANCE AMBULANCE ALS SERVICE SERVICE EMERGENCY TRANSPORT LEVEL 1 ECG 77008 LAURA HOLCOMB ROUTINE 7 [facility] W/LEAST P 12 LDS I&R ONLY NONEMERGE A0130 FEDERATED FEDERATED NCY 7 TRANS TRANSPORT TRANSPORT SERVBLUEG ATION: ATION SER TOSHA Dobson VAN VISUAL 42352 [facility] XM 7 MEDICAL UNI/BI SERV W/INTERP FOUNDATIO EXTENDED N EXAM HOSPITAL G0463 [facility] OUTPATIEN 7 HEALTHCAR HEALTHCAR T CLIN E E VISIT [facility] ASSESS & MGMT PT ECG 77952 [facility] ROUTINE 7 HEALTHCAR HEALTHCAR ECG E E W/LEAST [facility] 12 LDS TRCG ONLY W/O I&R DEBRIDEME 05386 SPECIAL VICTORIANO MARTINEZ. NT NAIL 7 CARE ANY PODIATRY METHOD OF YAMIL 6/> O2 CONC 1 E1390 [place] [facility] 7 HEALTHCAR HEALTHCAR 85%/>02 E E CONC AT [facility] FLW RATE O2 CONC 1 E1390 [facility] HEALTH[facility] HEALTHCAR 85%/>02 E E CONC AT PRS FLW RATE POLYSOM 22607 LAURA LAURA 6/>YRS 6 [facility] SLEEP INC INC W/CPAP 4/> ADDL KATARINA ATTND NONEMERG A0120 FEDERATED FEDERATED TRNSPRT: 6 MINI-BUS TRANSPORT TRANSPORT MTN ATION SER ATION SER AREA/OTH SYS O2 CONC 1 E1390 [facility] HEALTHCAR HEALTHCAR 85%/>02 E E CONC AT [facility] FLW RATE J CARLOS V G0471 [place] BLD 6 HEALTH HEALTH PORTRAIT CONSULTANT/URN ASSOCIATE ASSOCIATE MIREILLE CATH S S IND SNF/LAB BHALF PHOTOCOPIER TECHNICIAN BASIC 95429 [place] METABOLIC 6 HEALTH HEALTH PANEL ASSOCIATE ASSOCIATE CALCIUM S S TOTAL TRAVEL 1 P9603 [place] [facility] 6 HEALTH HEALTH NEC SEGMENTAL WALL INSTALLER ASSOCIATE SPEC; S S PRORAT ACTL MILE DEBRIDEME 92055 SPECIAL SKRIP JR. NT NAIL 6 CARE SELVIN ANY PODIATRY METHOD OF YAMIL 6/> O2 CONC 1 E1390 [facility] 6 HEALTHCAR HEALTHCAR 85%/>02 E E CONC AT PRS FLW RATE ECG 00766 [facility] ROUTINE 6 PHYSICIAN MAT ECG S GROUP W/LEAST 12 LDS I&R ONLY ECG 69212 LAURA SANCHEZ ROUTINE 6 [facility] ECG INC INC W/LEAST 12 LDS TRCG ONLY W/O I&R ECG 20142 LAURA ZARCO JR ROUTINE 6 [facility] W/LEAST P 12 LDS I&R ONLY RADIOLOGI 13529 [place] ALEISHA C EXAM 6 MEDICAL KIERAN CHEST 2 IMAGING VIEWS ASS FRONTAL&L ATERAL O2 CONC 1 E1390 [facility] 6 HEALTHCAR HEALTHCAR 85%/>02 E E CONC AT PRS FLW RATE RADEX 51140 [place] ORDONEZ ALL SPINE 6 MEDICAL LUMBOSACR IMAGING AL 2/3 ASS VIEWS RADEX 38943 NICKI ORDONEZ ALL SPINE 6 MEDICAL THORACIC IMAGING 2 VIEWS ASS RADEX 21735 [facility] ORDONEZ ALL SPINE 6 MEDICAL CERVICAL IMAGING 2 OR [address] [facility] [address] [facility] PHYSICIAN MAT ECG S GROUP W/LEAST 12 LDS I&R ONLY NONEMERG A0120 FEDERATED FEDERATED TRNSPRT: 6 MINI-BUS TRANSPORT TRANSPORT MTN ATION SER ATION SER AREA/OTH SYS NONEMERG A0120 FEDERATED FEDERATED TRNSPRT: 6 MINI-BUS TRANSPORT TRANSPORT MTN ATION SER ATION SER AREA/OTH SYS ECG 09784 [facility] ROUTINE 6 PHYSICIAN MAT ECG S GROUP W/LEAST 12 LDS I&R ONLY ECG 69083 LAURA HOLCOMB ROUTINE 6 [facility] W/LEAST P 12 LDS I&R ONLY PC C9600 MEADOWVIE MEADOWVIE TRNSCTH 6 W W PLCMT RX [facility] [place] IC MEDICAL MEDICAL STENTS; 1 CHRISTINE CA/BR NONEMERG A0120 FEDERATED FEDERATED TRNSPRT: 6 MINI-BUS TRANSPORT TRANSPORT MTN ATION SER ATION SER AREA/OT SYS PRQ 59729 [facility] TRLUML 6 PHYSICIAN MAT CORONARY S GROUP STENT W/ANGIO ONE ART/BRNCH ECG 88370 LAURA RUFFINSON ROUTINE 6 [facility] W/LEAST P 12 LDS I&R ONLY NONEMERG A0120 FEDERATED FEDERATED TRNSPRT: 6 MINI-BUS TRANSPORT TRANSPORT MTN ATION SER ATION SER AREA/OTH SYS RADEX 21357 LAURA SANCHEZ WRIST 6 [facility] COMPLETE INC INC MINIMUM 3 VIEWS RADIOLOGI 78655 NICKI ORDONEZ ALL C 6 MEDICAL EXAMINATI IMAGING ON CHEST ASS SINGLE VIEW FRONTAL NONEMERG A0120 FEDERATED FEDERATED TRNSPRT: 6 MINI-BUS TRANSPORT TRANSPORT MTN ATION SER ATION SER AREA/OTH SYS NONEMERG A0120 FEDERATED FEDERATED TRNSPRT: 6 MINI-BUS TRANSPORT TRANSPORT [facility] RADIOLOGI 76299 [place] ORDONEZ ALL C 6 MEDICAL EXAMINATI IMAGING ON CHEST ASS SINGLE VIEW FRONTAL NONEMERG A0120 FEDERATED FEDERATED TRNSPRT: 6 MINI-BUS TRANSPORT TRANSPORT MTN [facility] NONEMERG A0120 FEDERATED FEDERATED TRNSPRT: 6 MINI-BUS TRANSPORT TRANSPORT MTN [facility] NONEMERG A0120 FEDERATED FEDERATED TRNSPRT: 6 MINI-BUS TRANSPORT TRANSPORT MTN [facility] NONEMERG A0120 FEDERATED FEDERATED TRNSPRT: 6 MINI-BUS TRANSPORT TRANSPORT MTN [facility] 31115 [facility] DISCHARGE 6 PHYSICIAN MAT DAY S GROUP MANAGEMEN T 30 MIN/< PRQ 45338 [facility] TRLUML 6 PHYSICIAN MAT CORONARY S GROUP STENT W/ANGIO ONE ART/BRNCH PC C9600 MEADOWVIE MEADOWVIE TRNSCTH 6 W W PLCMT RX [facility] [place] IC MEDICAL MEDICAL STENTS; 1 CHRISTINE CA/BR NONEMERG A0120 FEDERATED FEDERATED TRNSPRT: 6 MINI-BUS TRANSPORT TRANSPORT MTN [facility] SYS NONEMERG A0120 FEDERATED FEDERATED TRNSPRT: 6 MINI-BUS TRANSPORT TRANSPORT MTN [facility] SYS ECHO 75587 LAURA LAURA TTHRC R-T 6 [facility] H[facility] 2D INC INC W/WOM-MOD E COMPL SPEC&COLR D NONEMERG A0120 FEDERATED FEDERATED TRNSPRT: 6 MINI-BUS TRANSPORT TRANSPORT MTN ATVERONICA [facility] S[facility] RADEX 64204 [facility] SPINE 6 MEDICAL GILMA LUMBOSACR IMAGING AL [address] [place] [address] [facility] CERVICAL 6 MEDICAL GILMA SPINE W/O IMAGING CONTRAST ASS MATERIAL ECG 14124 ALURA ABRAZO [facility] ROUTINE 6 [facility] W/LEAST P 12 LDS I&R ONLY RADEX 48268 [place] BEINE[place] SPINE 6 MEDICAL GILMA THORACIC IMAGING 2 VIEWS ASS RADIOLOGI 00557 [place] ALEISHA C 6 MEDICAL KIERAN EXAMINATI IMAGING [place] [address] [place] ALEISHA HEAD/BRAI 6 MEDICAL KIERAN N W/O IMAGING CONTRAST ASS MATERIAL NONEMERG A0120 FEDERATED FEDERATED TRNSPRT: 6 MINI-BUS TRANSPORT TRANSPORT MTN [facility] NONEMERG A0120 FEDERATED FEDERATED TRNSPRT: 6 MINI-BUS TRANSPORT TRANSPORT MTN [facility] RADIOLOGI 63996 [place] ORDONEZ ALL C 6 MEDICAL EXAMINATI IMAGING ON CHEST ASS SINGLE VIEW FRONTAL NONEMERG A0120 FEDERATED FEDERATED TRNSPRT: 6 MINI-BUS TRANSPORT TRANSPORT MTN ATION SER ATION [facility]/OT SYS ECG 81469 CARDIOVAS MEREDITH ROUTINE 6 CULAR MAT ECG CONSULTAN W/LEAST TS O 12 LDS I&R ONLY RADIOLOGI 70276 [place] ORDONEZ ALL C 6 MEDICAL EXAMINATI IMAGING ON CHEST ASS SINGLE VIEW FRONTAL NONEMERG A0120 FEDERATED FEDERATED TRNSPRT: 6 MINI-BUS TRANSPORT TRANSPORT MTN [facility]YS NONEMERG A0120 FEDERATED FEDERATED TRNSPRT: 5 MINI-BUS TRANSPORT TRANSPORT MTN [facility] [address]162 [facility] JEANIE JEANIE DAY MANAGEMEN T 30 MIN/< SBSQ 07209 [facility] 5 JEANIE JEANIE CARE/DAY 25 MINUTES SBSQ 47931 [facility] 5 JEANIE JEANIE CARE/DAY 25 MINUTES SBSQ 60214 [facility] 5 JEANIE JEANIE CARE/DAY 25 MINUTES SBSQ 21233 [facility] 5 JEANIE JEANIE CARE/DAY 25 MINUTES SBSQ 49393 [facility] 5 JEANIE JEANIE CARE/DAY 25 MINUTES SBSQ 99397 [facility] 5 JEANIE JEANIE CARE/DAY [address] THORAX 26285 [facility] 5 MEDICAL GILMA W/CONTRAS IMAGING T ASS MATERIAL RADIOLOGI 58851 [facility] 5 MEDICAL GILMA EXAMINATI IMAGING ON CHEST ASS SINGLE VIEW FRONTAL INITIAL 49017 [facility] 5 JEANIE JEANIE CARE/DAY 50 MINUTES RADEX 48226 [place] ORDONEZ ALL FINGR 5 MEDICAL MINIMUM 2 IMAGING VIEWS ASS URNLS DIP 80637 [facility]URA SANCHEZ 5 [facility] STICK/TAB INC INC LET REAGENT AUTO MICROSCOP Y NONEMERG A0120 FEDERATED FEDERATED TRNSPRT: 5 MINI-BUS TRANSPORT TRANSPORT MTN ATION SER ATION SER AREA/OTH SYS NONEMERG A0120 FEDERATED FEDERATED TRNSPRT: 5 MINI-BUS TRANSPORT TRANSPORT MTN ATION SER ATION SER AREA/OTH SYS ECG 16933 CARDIOVAS MEREDITH ROUTINE 5 CULAR MAT ECG CONSULTAN W/LEAST TS O 12 LDS I&R ONLY ECG 70278 LAURA SANCHEZ ROUTINE 5 MEM HOS[facility] MEM [...] SER AREA/OTH SYS R & L HRT 95692 CARDIOVAS MEREDITH CATH 5 CULAR MAT WINJX HRT CONSULTAN ART& [place] [address] [facility] ABDOMEN & 5 MEDICAL KIERAN PELVIS IMAGING W/O ASS CONTRAST MATERIAL RADIOLOGI 75079 [facility] ALEISHA C 5 MEDICAL KIERAN EXAMINATI IMAGING ON CHEST ASS SINGLE VIEW FRONTAL RADIOLOGI 90042 [facility] STILESALEISHA C 5 MEDICAL KIERAN EXAMINATI IMAGING [place] [address] [facility] THORACIC 5 MEDICAL KIERAN SPINE W/[place] [address] [facility] [facility] ALEISHA CERVICAL 5 MEDICAL KIERAN SPINE W/O IMAGING CONTRAST ASS MATERIAL RADIOLOGI 00604 [facility] ALEISHA C 5 MEDICAL KIERAN EXAMINATI IMAGING ON PELVIS ASS 1/2 VIEWS NONEMERG A0120 FEDERATED FEDERATED TRNSPRT: 5 MINI-BUS TRANSPORT TRANSPORT MTN [facility] RADIOLOGI 76392 [place] C EXAM 5 MEDICAL GILMA CHEST 2 IMAGING VIEWS ASS FRONTAL&L ATERAL ECHO 14472 LAURA SANCHEZ TTHRC R-T 5 [facility] 2D INC INC W/WOM-MOD E COMPL SPEC&COLR D NONEMERG A0120 FEDERATED FEDERATED TRNSPRT: 5 MINI-BUS TRANSPORT TRANSPORT MTN ATCOUNTS INCLUDE 234 BEDS AT THE [facility] S[facility] NONEMERG A0120 FEDERATED FEDERATED TRNSPRT: 5 MINI-BUS TRANSPORT TRANSPORT MTN ATCOUNTS INCLUDE 234 BEDS AT THE [facility]OT SYS CONTINUOU E0601 [facility] S 5 POSITIVE AIRWAY PRESSURE DEVICE WALKER E0143 [facility] FOLDING 5 WHEELED ADJUSTABL E/FIXED HEIGHT NONEMERG A0120 FEDERATED FEDERATED TRNSPRT: 5 MINI-BUS TRANSPORT TRANSPORT MTN ATCOUNTS INCLUDE 234 BEDS AT THE [facility]/OT SYS RADEX 45862 [facility] MORAES RIBS UNI 5 MEDICAL KIERAN W/POSTERO IMAGING ANT CH ASS MINIMUM 3 VIEWS NONEMERGE A0100 FEDERATED FEDERATED NCY 5 TRANSPORT TRANSPORT TRANSPORT ATION; ATCOUNTS INCLUDE 234 BEDS AT THE [facility] SER ATCOUNTS INCLUDE 234 BEDS AT THE [facility] SER TAXI NONEMERGE A0100 FEDERATED FEDERATED [...] MTN ATION [place] AREA/[place] [address] [facility] ABDOMEN & 4 MEDICAL GILMA PELVIS IMAGING W/CONTRAS ASS T MATERIAL NONEMERG A0120 FEDERATED FEDERATED TRNSPRT: 4 TRANS MINI-BUS TRANSPORT SERVBLUEG MTN ATION SER TOSHA AREA/OTH SYS NONEMERG A0120 FEDERATED FEDERATED TRNSPRT: 4 TRANS MINI-BUS TRANSPORT SERVBLUEG MTN ATION SER TOSHA AREA/OTH SYS XTRNL 14854 [place] ONDINA OCULAR 4 MEDICAL SHA PHOTOG SERV W/I&R FOUNDATIO DOCMT N MEDICAL PROGRE O2 CONC 1 E1390 [facility] [place] 4 HOME HOME 85%/>02 MEDICAL MEDICAL CONC AT EQUIPME EQUIPME PRSC FLW RATE SPMTRY 70969 LAURA SANCHEZ W/VC 4 [facility] H[facility] MEM [...] SYS O2 CONC 1 E1390 [facility] 4 HOME HOME 85%/>02 MEDICAL MEDICAL CONC AT EQUIPME EQUIPME PRSC FLW RATE NONEMERG A0120 FEDERATED FEDERATED TRNSPRT: 4 TRANS MINI-BUS TRANSPORT SERVBLUEG MTN ATION SER TOSHA AREA/OTH SYS NONEMERG A0120 FEDERATED FEDERATED TRNSPRT: 4 TRANS MINI-BUS TRANSPORT SERVBLUEG MTN ATION SER TOSHA AREA/OTH SYS O2 CONC 1 E1390 [facility]IGHTRE[facility] 4 HOME HOME 85%/>02 MEDICAL MEDICAL CONC AT EQUIPME EQUIPME PRS FLW RATE SAVAGE 23623 LAURA MATHIS JR POST-VOID 4 [facility] RESIDUAL P URINE&/BL ADDER CAP NONEMERG A0120 FEDERATED FEDERATED TRNSPRT: 4 TRANS MINI-BUS TRANSPORT SERVBLUEG MTN ATION SER TOSHA AREA/OTH SYS NONEMERG A0120 FEDERATED FEDERATED TRNSPRT: 4 TRANS MINI-BUS TRANSPORT SERVBLUEG MTN ATION SER TOSHA AREA/OTH SYS NONEMERG A0120 FEDERATED FEDERATED TRNSPRT: 4 MINI-BUS TRANSPORT TRANSPORT MTN ATION SER ATION SER AREA/OTH SYS O2 CONC 1 E1390 [facility]ON KNIGHTRELL [facility] 4 HOME HOME 85%/>02 MEDICAL MEDICAL CONC AT EQUIPME EQUIPME PRSC FLW RATE NONEMERG A0120 FEDERATED FEDERATED TRNSPRT: 4 MINI-BUS TRANSPORT TRANSPORT MTN ATION SER ATION SER AREA/OTH SYS NONEMERG A0120 FEDERATED FEDERATED TRNSPRT: 4 MINI-BUS TRANSPORT TRANSPORT MTN ATION SER ATION SER AREA/OTH SYS SAVAGE 39238 LAURA MATHIS JR POST-VOID 4 [facility] RESIDUAL P URINE&/BL ADDER CAP O2 CONC 1 E1390 [facility] [place] 4 HOME HOME 85%/>02 MEDICAL MEDICAL CONC AT EQUIPME EQUIPME PRSC FLW RATE NONEMERG A0120 FEDERATED FEDERATED TRNSPRT: 4 MINI-BUS TRANSPORT TRANSPORT MTN ATION SER ATION SER AREA/OTH SYS NONEMERG A0120 FEDERATED FEDERATED TRNSPRT: 4 MINI-BUS TRANSPORT TRANSPORT MTN ATION SER ATION SER AREA/OTH SYS SAVAGE 37354 LAURA MATHIS JR POST-VOID 4 [facility] RESIDUAL P URINE&/BL ADDER CAP O2 CONC 1 E1390 [facility] 4 HOME HOME 85%/>02 MEDICAL MEDICAL CONC AT EQUIPME EQUIPME PRSC FLW RATE NONEMERG A0120 FEDERATED FEDERATED TRNSPRT: 4 MINI-BUS TRANSPORT TRANSPORT MTN ATION SER ATION SER AREA/OTH SYS 3D 63013 [place] RENDERING 4 MEDICAL KIERAN IMAGING W/INTERP& [place] [address] [place] MAXILLOFA 4 MEDICAL KIERAN CIAL W/O IMAGING CONTRAST ASS MATERIAL NONEMERG A0120 FEDERATED FEDERATED TRNSPRT: 4 MINI-BUS TRANSPORT TRANSPORT MTN ATION SER ATION SER AREA/OTH SYS NONEMERG A0120 FEDERATED FEDERATED TRNSPRT: 4 MINI-BUS TRANSPORT TRANSPORT MTN ATION SER ATION SER AREA/OTH SYS O2 CONC 1 E1390 [facility] HOME HOME 85%/>02 MEDICAL MEDICAL CONC AT EQUIPME EQUIPME PRSC FLW RATE NONEMERG A0120 FEDERATED FEDERATED TRNSPRT: 4 MINI-BUS TRANSPORT TRANSPORT MTN ATION SER ATION SER AREA/OTH SYS NONEMERG A0120 FEDERATED FEDERATED TRNSPRT: 4 MINI-BUS TRANSPORT TRANSPORT MTN ATION SER ATION SER AREA/OTH SYS RADIOLOGI 16402 LAURA Swartz EXAM 4 [facility] KNEE INC INC COMPLETE 4/MORE VIEWS RADEX 47732 LAURA SANCHEZ WRIST 4 [facility] COMPLETE INC INC MINIMUM 3 VIEWS O2 CONC 1 E1390 [facility] 3 HOME HOME 85%/>02 [facility] FLW [facility]ATE NONEMERG A0120 FEDERATED FEDERATED TRNSPRT: 3 MINI-BUS TRANSPORT TRANSPORT MTN ATION SER ATION SER AREA/OTH SYS NONEMERG A0120 FEDERATED FEDERATED TRNSPRT: 3 MINI-BUS TRANSPORT TRANSPORT MTN ATION SER ATION SER AREA/OTH SYS NONEMERG A0120 FEDERATED FEDERATED TRNSPRT: 3 MINI-BUS TRANSPORT TRANSPORT MTN ATION SER ATION SER AREA/OTH SYS O2 CONC 1 E1390 [facility] 3 HOME HOME 85%/>02 MEDICAL MEDICAL CONC [facility] [address] LAURA SANCHEZ INFUSION 3 [facility] THERAPY/P INC INC ROPHYLAXI S /DX 1ST TO 1 HR PRESSURIZ 76666 LAURA SANCHEZ ED/NONPRE 3 [facility] SSURIZED INC INC INHALATIO N TREATMENT NEUROPLAS 65296 LAURA SANCHEZ TY 3 [facility] &/TRANSPO INC INC S MEDIAN NRV CARPAL TUNNE THERAPEUT 18110 LAURA SANCHEZ IC 3 [facility] INJECTION [place] [address] LAURA SANCHEZ INFUSION 3 [facility] MEM [...] SER AREA/OTH SYS O2 CONC 1 E1390 [facility] 3 HOME HOME 85%/>02 MEDICAL MEDICAL CONC AT EQUIPTX [facility] [place] [place] [address] LAURA SANCHEZ INFUSION 3 [facility] THERAPY INC INC PROPHYLAX IS/DX EA HOUR THERAPEUT 66731 LAURA SANCHEZ IC 3 [facility] INJECTION [place] [address] LAURA SANCHEZ INFUSION 3 [facility] THERAPY/P INC INC ROPHYLAXI S /DX 1ST TO 1 HR NEUROPLAS 51138 LAURA SANCHEZ TY 3 [facility] &/TRANSPO INC INC S MEDIAN NRV CARPAL TUNNE RADIOLOGI 17419 NICKI Swartz EXAM 3 MEDICAL KIERAN CHEST 2 IMAGING VIEWS ASS FRONTAL&L ATERAL BLOOD 57847 LAURA SANCHEZ COUNT 3 [facility] COMPLETE INC INC AUTO&AUTO DIFRNTL WBC ECG 70659 LAURA HOLCOMB ROUTINE 3 [facility] W/LEAST P 12 LDS I&R ONLY COLLECTIO 26414 LAURA SANCHEZ N VENOUS 3 [facility] BLOOD INC INC VENIPUNCT URE BASIC 38425 LAURA SANCHEZ METABOLIC 3 [facility] PANEL INC INC CALCIUM TOTAL ECG 70502 LAURA SANCHEZ ROUTINE 3 [facility] ECG INC INC W/LEAST 12 LDS TRCG ONLY W/O I&R NONEMERG A0120 LKLP CAC LKLP CAC TRNSPRT: 3 INC INC MINI-BUS REGION 11 REGION 11 MTN AREA/OTH SYS NONEMERG A0120 LKLP CAC LKLP CAC TRNSPRT: 3 INC INC MINI-BUS REGION 11 REGION 11 MTN AREA/OTH SYS DETERMINA 26970 ELENI KNOWLES TION 3 JAM JAM REFRACTIV E STATE OPHTHALMO 07920 ELENI KNOWLES SCPY 3 JAM JAM EXTENDED RETINAL DRAWING I&R 1ST NONEMERG A0120 LKLP CAC LKLP CAC TRNSPRT: 3 INC INC MINI-BUS REGION 11 REGION 11 MTN AREA/OTH SYS O2 CONC 1 E1390 [facility] [place] 3 HOME HOME 85%/>02 MEDICAL MEDICAL CONC AT EQUIPME EQUIPME PRS FLW RATE NERVE 40251 RESTORATIONISMMARITA JUSTICE CONDUCTIO 3 [facility] 13/> [facility] NEEDLE 76478 RESTORATIONISM VINH EMG EA 3 [facility] W/PARASPI [place] NL AREA COMPLETE NONEMERG A0120 LK CAC [facility] CAC TRNSPRT: 3 INC INC MINI-BUS REGION 11 REGION 11 MTN AREA/OTH SYS TRIMMING 12276 BRAUDIS BRAUDIS NONDYSTRO 3 JAM JAM PHIC NAILS ANY NUMBER O2 CONC 1 E1390 [facility]ON [facility] [place] 3 HOME HOME 85%/>02 MEDICAL MEDICAL CONC AT EQUIPME EQUIPME PRS FLW RATE MRI 57774 NICKI ROCKCHER SPINAL 3 MEDICAL KIERAN CANAL IMAGING CERVICAL ASS W/O CONTRAST MATRL GLUC BLD 70902 LAURA SANCHEZ GLUC MNTR 3 [facility] DEV INC INC CLEARED FDA SPEC [place] USE EGD 27385 LAURA SANCHEZ TRANSORAL 3 [facility] BIOPSY INC INC SINGLE/MU LTIPLE SPCL STN 79382 LAURA SANCHEZ 2 I&R 3 [facility] EXCPT INC INC MICROORG/ ENZYME/[place] [address] LAURA SANCHEZ SURG 3 [facility] PATHOLOGY INC INC GROSS&ARMANDO ROSCOPIC EXAM NONEMERG A0120 LK CAC [facility] CAC TRNSPRT: 3 INC INC MINI-BUS REGION 11 REGION 11 MTN AREA/[place] [address] LAURA SANCHEZ INFUSION 3 [facility] THERAPY INC INC PROPHYLAX IS/DX EA HOUR EXCISION 05538 MARKIE LOZADA THO NAIL 3 [facility] REMOVAL NONEMERG A0120 [facility] TRNSPRT: 3 [facility] MINI-BUS ACTION ACTION MTN AREA/OTH SYS O2 CONC 1 E1390 [facility]ON [facility] [place] 3 HOME HOME 85%/>02 MEDICAL MEDICAL CONC AT EQUIPME EQUIPME PRSC FLW RATE CREATINE 30938 LAURA SANCHEZ KINASE 3 [facility] TOTAL INC INC COMPREHEN 81206 LAURA SANCHEZ SIVE 3 [facility] METABOLIC INC INC PANEL CREATINE 23349 LAURA SANCHEZ KINASE MB 3 [facility] FRACTION INC INC ONLY RADIOLOGI 94802 LAURA SANCHEZ C EXAM 3 [facility] CHEST 2 INC INC VIEWS FRONTAL&[place] [address] LAURA SANCHEZ TROPONIN 3 [facility] QUANTITAT INC INC ANGY BLOOD 69765 LAURA SANCHEZ COUNT 3 [facility] COMPLETE INC INC AUTO&AUTO DIFRNTL WBC ECG 84733 ERIC PATRICK ROUTINE 3 MEDICAL ARMANDO ECG GROUP, W/LEAST PLLC 12 LDS I&R ONLY ECG 58308 LAURA SANCHEZ ROUTINE 3 [facility] ECG INC INC W/LEAST 12 LDS TRCG ONLY W/O I&R GROUND A0425 [facility] PER SERVICE SERVICE STATUTE MILE AMB A0427 [facility] SERVICE 3 AMBULANCE AMBULANCE ALS SERVICE SERVICE EMERGENCY TRANSPORT LEVEL 1 NONCOVERE A9270 [facility] ITEM OR 3 HOSPITAL HOSPITAL SERVICE O2 CONC 1 E1390 ARON ARON DEL [place] 3 HOME HOME 85%/>02 MEDICAL MEDICAL CONC AT EQUIPME EQUIPME PRS FLW RATE DEBRIDEME 17919 BRAUDIS BRAUDIS NT NAIL 3 JAM JAM ANY METHOD 1-5 TRIMMING 80217 BRAUDIS BRAUDIS NONDYSTRO 3 JAM JAM PHIC NAILS ANY NUMBER O2 CONC 1 E1390 ARON ARON [facility] [place] 3 HOME HOME 85%/>02 MEDICAL MEDICAL CONC AT EQUIPME EQUIPME [facility] FLW RATE PROSTATE G0103 COMBINED COMBINED CANCER 3 PHYSICIAN PHYSICIAN SCREENING S LA S LA ; PSA TEST URNLS DIP 16944 COMBINED COMBINED 3 PHYSICIAN PHYSICIAN STICK/TAB S LA S LA LET REAGENT AUTO MICROSCOP Y RADEX 79538 [facility] SHOULDER 3 MOBILE MOBILE COMPLETE DIAGNOSTI DIAGNOSTI MINIMUM 2 C SE C SE VIEWS RADEX 07605 [facility] HUMERUS 3 MOBILE MOBILE MINIMUM 2 DIAGNOSTI DIAGNOSTI VIEWS C SE C SE RADEX 89211 [facility] EXPRESS ELBOW 3 MOBILE MOBILE COMPLETE DIAGNOSTI DIAGNOSTI MINIMUM 3 C SE C SE VIEWS O2 CONC 1 E1390 [facility]ON SHARP [place] 3 HOME HOME 85%/>02 MEDICAL MEDICAL CONC AT EQUIPME EQUIPME PRSC FLW RATE O2 CONC 1 E1390 [facility]NIGHT[facility] [place] 3 HOME HOME 85%/>02 MEDICAL MEDICAL CONC AT EQUIPME EQUIPME PRSC FLW RATE PARING/CU 48924 RAMÍREZ BUSHS TTING 3 JAM JAM BENIGN HYPERKERA TOTIC LESION >4 DEBRIDEME 30392 RAMÍREZ BUSHS NT NAIL 3 JAM JAM ANY METHOD 1-5 TRIMMING 26405 RAMÍREZ GUILELNUDIS NONDYSTRO 3 JAM JAM PHIC NAILS ANY NUMBER O2 CONC 1 E1390 [facility] [place] 3 HOME HOME 85%/>02 MEDICAL MEDICAL CONC AT EQUIPME EQUIPME PRS FLW RATE NONEMERG A0120 LKLP LKLP TRNSPRT: 3 [facility] MINI-BUS ACTION ACTION MTN AREA/[place] [address] LAURA TRIPPON INFUSION 3 [facility] THERAPY INC INC PROPHYLAX IS/DX EA HOUR COLONOSCO 00702 C ANTONETTE GEORGE PY FLX DX 3 DORIS HILLMAN W/PERRY [place] [address] LAURA TRIPPON INFUSION 3 [facility] THERAPY/P INC INC ROPHYLAXI S /DX 1ST TO 1 HR O2 CONC 1 E1390 [facility]ON SHARP [place] 2 HOME HOME 85%/>02 MEDICAL MEDICAL CONC AT EQUIPME EQUIPME PRS FLW RATE O2 CONC 1 E1390 [facility]ON [facility]ARP [place] 2 HOME HOME 85%/>02 MEDICAL MEDICAL CONC AT EQUIPME EQUIPME PRS FLW RATE COMPREHEN 39762 COMBINED COMBINED SIVE 2 PHYSICIAN PHYSICIAN [place] [address] COMBINED COMBINED THYROID 2 PHYSICIAN PHYSICIAN STIMULATI S LA S LA NG HORMONE TSH COLLECTIO 32615 COMBINED COMBINED N VENOUS 2 PHYSICIAN PHYSICIAN BLOOD S LA S LA VENIPUNCT URE LIPID 06908 COMBINED COMBINED PANEL 2 PHYSICIAN PHYSICIAN S LA S LA PROSTATE G0103 COMBINED COMBINED CANCER 2 PHYSICIAN PHYSICIAN SCREENING S LA S LA ; PSA TEST O2 CONC 1 E1390 [facility]ON SHARP [place] 2 HOME HOME 85%/>02 MEDICAL MEDICAL CONC AT EQUIPME EQUIPME PRSC FLW RATE RADIOLOGI 67506 LAURA SANCHEZ C 2 [facility] EXAMINATI INC INC ON CHEST SING[place]IEW FRONTAL ECG 09272 LAURA SANCHEZ ROUTINE 2 [facility] ECG INC INC W/LEAST 12 LDS TRCG ONLY W/O I&R ECG 64385 RAND ADDISONMAN ROUTINE 2 III MARCY III MARCY ECG W/LEAST 12 LDS I&R ONLY SAVAGE 60552 DEL MATHIS JR POST-VOID 2 MARCY MARCY ING RESIDUAL URINE&/BL ADDER CAP NONEMERG A0120 LKLP LKLP TRNSPRT: 2 [facility] [employer] MINI-BUS ACTION ACTION MTN AREA/[place] [address] LAURA SANCHEZ THYROID 2 [facility] STIMULATI INC INC NG HORMONE TSH BASIC 91120 LAURA SANCHEZ METABOLIC 2 [facility] PANEL INC INC CALCIUM TOTAL BLOOD 86388 LARUA SANCHEZ COUNT 2 [facility] COMPLETE INC INC AUTO&AUTO DIFRNTL WBC URNLS DIP 49042 LAURA SANCHEZ 2 [facility] STICK/TAB INC INC LET REAGENT AUTO MICROSCOP Y INSJ TEMP 39806 LAURA SANCHEZ NDWELLG 2 [facility] BLADDER INC INC CATHETER SIMPLE 3D 87005 NICKI MORAES RENDERING 2 MEDICAL KIERAN IMAGING W/INTERP& [place] [address] NICKI MORAES ABDOMEN & 2 MEDICAL KIERAN PELVIS IMAGING [place] [address] LAURA SANCHEZ INFUSION 2 [facility] HYDRATION INC INC INITIAL 31 MIN-1 HOUR ECG 69706 RAND WILCOXHRMAN ROUTINE 2 III MARCY III MARCY ECG W/LEAST 12 LDS I&R ONLY RADIOLOGI 39790 NICKI ALEISHA C 2 MEDICAL KIERAN EXAMINATI IMAGING ON CHEST ASS [place] FRONTAL O2 CONC 1 E1390 ARON MOSES 2 HOME HOME 85%/>02 MEDICAL MEDICAL CONC AT EQUIPME EQUIPME [facility] FLW RATE TRIMMING 70340 BRAUDIS BRAUDIS NONDYSTRO 2 JAM JAM PHIC NAILS ANY NUMBER O2 CONC 1 E1390 ARON MOSES 2 HOME HOME 85%/>02 MEDICAL MEDICAL CONC AT EQUIPME EQUIPME [facility] FLW RATE BASIC 95559 LAURA SANCHEZ METABOLIC 2 [facility] PANEL INC INC CALCIUM TOTAL CT SOFT 98392 NICKI ROCKCHER TISSUE 2 MEDICAL KIERAN NECK W/O IMAGING CONTRAST ASS MATERIAL BLOOD 84120 LAURA SANCHEZ COUNT 2 [facility] COMPLETE INC INC AUTO&AUTO DIFRNTL WBC CT SOFT 74140 LAURA SANCHEZ TISSUE 2 [facility] NECK INC INC W/CONTRAS T MATERIAL LOCM Q9967 LAURA LAURA [phone] 2 [facility] MG/ML INC INC IODINE CONCENTRA TION PER ML 3D 19354 LAURA LAURA RENDERING 2 [facility] INC INC W/INTERP& POSTPROC DIFF WORK STATION O2 CONC 1 E1390 ARON MOSES 2 HOME HOME 85%/>02 MEDICAL MEDICAL CONC AT EQUIPME EQUIPME [facility] FLW RATE O2 CONC 1 [...] DEVICE NONEMERG A0120 LKLP LKLP TRNSPRT: 2 [facility] MINI-BUS ACTION ACTION MTN AREA/OTH SYS ECG 48609 ZEKE BAR ZEKE BAR ROUTINE 2 ECG W/LEAST 12 LDS I&R ONLY ECG 83793 HEEB CHR HEEB CHR ROUTINE 2 ECG W/LEAST 12 LDS I&R ONLY ECG 15557 HEEB CHR HEEB CHR ROUTINE 2 ECG W/LEAST 12 LDS I&R ONLY RADIOLOGI 94909 RADIOLOGY NEILS JONATHAN C 2 EXAMINATI ASSOCIATE ON CHEST S OF [facility] [place] FRONTAL ECG 03922 HEEB CHR HEEB CHR ROUTINE 2 ECG [...] EQUIPME EQUIPME W/POS ARWAY PRESS DEVICE POLYSOM 91153 LEON QUINTERO 6/>YRS 1 ERNST ERNST SLEEP W/CPAP 4/> ADDL KATARINA ATTND POLYSOM 30771 LAURA SANCHEZ 6/>YRS 1 [facility] SLEEP INC INC W/CPAP 4/> [place] [address] LAURA SANCHEZ ABDOMEN & 1 [facility] PELVIS INC INC W/O CONTRAST MATERIAL 3D 47905 LAURA SANCHEZ RENDERING 1 [facility] INC INC W/INTERP& POSTPROC DIFF WORK STATION COMPREHEN 53990 LAURA SANCHEZ SIVE 1 [facility] METABOLIC INC INC PANEL COLLECTIO 23673 LAURA SANCHEZ N VENOUS 1 [facility] BLOOD INC INC VENIPUNCT URE CULTURE 69708 LAURA SANCHEZ BACTERIAL 1 [facility] INC INC QUANTTATI VE COLONY COUNT URINE BLOOD 21363 LAURA SANCHEZ COUNT 1 [facility] COMPLETE INC INC AUTO&AUTO DIFRNTL WBC INSJ TEMP 14523 LAURA SANCHEZ NDWELLG 1 [facility] BLADDER INC INC CATHETER SIMPLE URNLS DIP 35371 LAURA SANCHEZ 1 [facility] STICK/TAB INC INC LET REAGENT AUTO MICROSCOP Y MYOCARDIA 27285 LAURA SANCHEZ L SPECT 1 [facility] MULTIPLE INC INC STUDIES INJECTION J2785 LAURA SANCHEZ 1 [facility] REGADENOS INC INC ON 0.1 MG CV STRS 92232 AICHA HOLCOMB TST 1 JEANIE JEANIE XERS&/OR RX CONT ECG I&R ONLY CV STRS 98089 ZAYRA BLOOM TST 1 XERS&/OR RX CONT ECG W/O I&R CV STRS 53206 LAURA SANCHEZ TST 1 [facility] XERS&/OR INC INC RX CONT ECG TRCG ONLY TECHNETIU A9502 LAURA Ornelas TC-99M 1 [facility] TETROFOSM INC INC IN DX PER STUDY DOSE INITIAL 87503 AICHA HOLCOMB OBSERVATI 1 JEANIE JEANIE ON CARE/DAY 30 MINUTES ECG 73984 PUND CHR PUND CHR ROUTINE 1 ECG W/LEAST 12 LDS I&R ONLY RADIOLOGI 57396 [place]HA C EXAM 1 MEDICAL [facility] CHEST 2 IMAGING VIEWS ASS FRONTAL&L ATERAL ECHO 85519 LAURA SANCHEZ TTHRC R-T 1 [facility] 2D INC INC W/WOM-MOD E COMPL SPEC&COLR D POLYSOM 87629 LEON QUINTERO 6/>YRS 1 ERNST ERNST SLEEP 4/> ADDL KATARINA ATTND NONEMERG A0120 LKLP LKLP TRNSPRT: 1 COMMUNITY COMMUNITY MINI-BUS ACTION N MTN AREA/OTH SYS POLYSOM 88595 LAURA SANCHEZ 6/>YRS 1 [facility] SLEEP 4/> INC INC ADDL KATARINA ATTND NONINVASI 81114 LAURA SANCHEZ VE 1 [facility] EAR/PULSE INC INC OXIMETRY SINGLE DETER SPMTRY 22680 LAURA SANCHEZ W/VC 1 [facility] EXPIRATOR INC INC Y MARYLOU W/WO MXML VOL VNTJ [facility] 21131 LAURA SANCHEZ ANALYSIS 1 [facility] ADDL HIGH INC INC RESOLUTIO N STUDY COLLECTIO 87448 LAURA SANCHEZ N VENOUS 1 [facility] BLOOD INC INC VENIPUNCT URE CHRMS 44834 LAURA SANCHEZ COUNT 1 [facility] 15-20 CLL INC INC 2KARYOTYP BANDING BLOOD 20609 LAURA SANCHEZ COUNT 1 [facility] COMPLETE INC INC AUTO&[place] [address] LAURA SANCHEZ THYROID 1 [facility] STIMULATI INC INC NG HORMONE TSH COMPREHEN 37245 LAURA SANCHEZ SIVE 1 [facility] METABOLIC INC INC PANEL NONEMERG A0120 LKLP LKLP TRNSPRT: 1 [facility] MINI-BUS ACTION N NJN AREA/OT SYS TRAVEL [address] MED 1 PHYSICIAN PHYSICIAN NEC LAB S LA S LA SPEC; PRORATD TRIP CHRG COMPREHEN 87138 COMBINED COMBINED SIVE 1 PHYSICIAN PHYSICIAN [place] [address] COMBINED COMBINED THYROID 1 PHYSICIAN PHYSICIAN STIMULATI S LA S LA NG HORMONE TSH PROSTATE G0103 COMBINED COMBINED CANCER 1 PHYSICIAN PHYSICIAN SCREENING S LA S LA ; PSA TEST LIPID 61672 COMBINED COMBINED PANEL 1 PHYSICIAN PHYSICIAN S LA S LA COLLECTIO 57778 COMBINED COMBINED N VENOUS 1 PHYSICIAN PHYSICIAN BLOOD S LA S LA VENIPUNCT URE NONEMERG A0120 [facility] TRNSPRT: 1 [facility] ACTION N [facility] AREA/OTH SYS CULTURE 86157 COMBINED COMBINED BACTERIAL 1 PHYSICIAN PHYSICIAN S LA S LA QUANTTATI VE COLONY COUNT URINE URNLS DIP 52470 COMBINED COMBINED 1 PHYSICIAN PHYSICIAN STICK/TAB S LA S LA [place] [address] ORAL ORAL SURG 1 PATHOLOGY PATHOLOGY PATHOLOGY LABORATOR LABORATOR GROSS&ARMANDO [place]C 80529 THE RODRIGUEZ, LESION/TU 1 IMPLANT & III OANH MOR ORAL DENTOALVE SURGERY C OLAR STRUX W/SMPL RPR ORTHOPANT 20228 THE THE OGRAM 1 IMPLANT & IMPLANT & ORAL ORAL SURGERY C SURGERY C NONEMERG A0120 [facility] TRNSPRT: 1 [facility] ACTION N NJN AREA/OTH SYS NONEMERG A0120 [facility] TRNSPRT: 1 [facility] ACTION N [facility] AREA/OTH SYS NONEMERG A0120 [facility] TRNSPRT[facility] 1 [facility] ACTION N [facility] AREA/OTH SYS OPHTH 52761 [facility] [place] [facility] MEDICAL 1 VISION XM&EVAL COMPRE NEW PT 1/> VST RADEX 60950 [facility] COMPLETE MINIMUM 3 VIEWS TRANS R0070 [facility] PRTBL 1 [facility] LLC X-RAY EQP&PERS [place]/NRS RICHMOND-TRIP 1 PT SET-UP Q0092 [facility] PORTABLE 1 LLC [facility] X-RAY EQUIPMENT SET-UP Q0092 [facility] 1 [facility] LLC X-RAY EQUIPMENT TRANS R0070 [facility] PRTBL 1 [facility] LLC X-RAY EQP&PERS RICHMOND/NRS RICHMOND-TRIP 1 PT RADIOLOGI 98773 [facility] C 1 LLC [facility] EXAMINATI [place] [address] LAURA SANCHEZ ABDOMEN & 1 [facility] PELVIS INC INC W/O CONTRAST MATERIAL GROUND A0425 [facility] MILEAGE 1 AMBULANCE AMBULANCE PER SERVICE SERVICE STATUTE MILE AMBULANCE A0429 [facility] SERVICE 1 AMBULANCE AMBULANCE BLS SERVICE SERVICE EMERGENCY TRANSPORT 3D 08883 LAURA SANCHEZ RENDERING 1 [facility] INC INC W/INTERP& POSTPROC DIFF WORK STATION COMPREHEN 61285 LAURA SANCHEZ SIVE 1 [facility] METABOLIC INC INC PANEL BLOOD 45610 LAURA SANCHEZ COUNT 1 [facility] COMPLETE INC INC AUTO&AUTO DIFRNTL WBC INSJ TEMP 00269 AMANDA PATRICK NDWELLG 1 EMERGENCY [facility] CATHETER SIMPLE URNLS DIP 70853 LAURA SANCHEZ 1 [facility] STICK/TAB INC INC LET REAGENT AUTO MICROSCOP Y ECG [address] [facility] ROUTINE 1 [facility] ECG CARDIOLOG W/LEAST Y CLINIC 12 LDS I&R ONLY RADEX 33939 [facility] HAND 1 MOBILE MOBILE MINIMUM 3 DIAGNOSTI DIAGNOSTI VIEWS C SE C SE SET-UP Q0092 [facility] PORTABLE 1 MOBILE MOBILE X-RAY DIAGNOSTI DIAGNOSTI EQUIPMENT C SE C SE GROUND A0425 [facility] MILEAGE 1 AMBULANCE AMBULANCE PER SERVICE SERVICE STATUTE MILE RADEX 42871 [facility] EXPRESS WRIST 1 MOBILE MOBILE COMPLETE DIAGNOSTI DIAGNOSTI MINIMUM 3 C SE C SE VIEWS SBSQ 75115 [facility] [place] CARE/DAY URGENT 25 TREAT MINUTES RADIOLOGI 38526 [facility] [place] RADHA C 1 RADIOLOGY BOY EXAMINATI ON CHEST SINGLE VIEW FRONTAL AMB A0427 [facility] SERVICE 1 AMBULANCE AMBULANCE ALS SERVICE SERVICE EMERGENCY TRANSPORT LEVEL 1 TRANS R0075 [facility] PRTBL 1 MOBILE MOBILE XRAY DIAGNOSTI DIAGNOSTI EQP&PERS C SE C SE [place]/NRS RICHMOND-TRIP> 1 PT SBSQ 93699 [facility] [place] CARE/DAY URGENT 35 TREAT MINUTES SBSQ 54702 [facility] [place] CARE/DAY URGENT 25 TREAT MINUTES SBSQ 62536 [facility] [place] CARE/DAY URGENT 25 TREAT MINUTES SBSQ 30813 [facility] 1 URGENT CARE/DAY TREATMENT 35 A MINUTES RADEX 02583 [facility] EXPRESS HAND 1 MOBILE MOBILE MINIMUM 3 DIAGNOSTI DIAGNOSTI VIEWS C SE C SE SET-UP Q0092 [facility] PORTABLE 1 MOBILE MOBILE X-RAY DIAGNOSTI DIAGNOSTI EQUIPMENT C SE C SE TRANS R0070 [facility] PRTBL 1 MOBILE MOBILE X-RAY DIAGNOSTI DIAGNOSTI EQP&PERS C SE C SE [place]/NRS RICHMOND-TRIP 1 PT SBSQ 39199 [facility] 1 URGENT CARE/DAY TREATMENT 35 A MINUTES SBSQ 91791 [facility] [place] CARE/DAY URGENT 35 TREAT MINUTES SET-UP Q0092 EXPRESS EXPRESS PORTABLE 1 MOBILE MOBILE X-RAY DIAGNOSTI DIAGNOSTI EQUIPMENT C SE C SE ECG 94079 [facility] R[facility] 1 [place] ECG URGENT W/LEAST TREAT 12 LDS I&R ONLY RADIOLOGI 08433 EXPRESS EXPRESS C EXAM 1 MOBILE MOBILE CHEST 2 DIAGNOSTI DIAGNOSTI VIEWS C SE C SE FRONTAL&L ATERAL TRANS R0070 EXPRESS EXPRESS PRTBL 1 MOBILE MOBILE X-RAY DIAGNOSTI DIAGNOSTI EQP&PERS C SE C SE RICHMOND/NRS RICHMOND-TRIP 1 PT ECG 68980 EXPRESS EXPRESS ROUTINE 1 MOBILE MOBILE ECG DIAGNOSTI DIAGNOSTI W/LEAST C SE C SE 12 LDS TRCG ONLY W/O I&R INITIAL [id number] [facility] 1 URGENT CARE/DAY TREATMENT 50 A MINUTES COMPREHEN 08645 FAMILY MONONORBERTO SIVE 1 PRACT [facility]ON[facility] METAB[place] [address] FAMILY MONOHAN THYROID 1 PRACT RON[facility] STIMULATI [place] [address] FAMILY MONOHAN FREE 1 PRACT RONALD THYROXINE ASSOC OF [place] LIPID 47468 FAMILY MONOHAN PANEL 1 [facility]ACT R[facility] ASS[facility] OF [place] COLLECTIO 50047 FAMILY FAMILY N VENOUS 1 PRACT PRACT BLOOD ASSOC OF ASSOC OF VENIPUNCT [place] URE RADEX 70031 CENTRAL LYN J SPINE 1 RADIOLOGY THORACIC ASSOC MINIMUM 4 VIEWS URNLS DIP 45447 FAMILY MONOHAN 1 PRACT RONALD STICK/TAB ASSOC OF [place] [address] [place] GE[place] ABDOMEN & 1 RADIOLOGY LD A PELVIS W/CONTRAS T MATERIAL Encounters Encounter Start End Date Code Location Performer Type Date [facility] - OTHER 7 7 [facility] OTHER 7 7 [facility]PATIENT 7 7 [facility] - 7 7 [facility] 17896 [facility] 10 P MINUTES [facility] IN[facility] 7 7 [facility] E OFFICE [address] [facility] 7 7 MEDICAL T VISIT SERV 40 FOUNDATIO MINUTES [facility] LAURA [facility] OTHER 7 7 [facility] INPAT[facility] 7 7 [facility] E OFFICE 43014 [facility] OUTPATIEN 7 7 PHYSICIAN T VISIT S GROUP 10 MINUTES [facility]OSP[facility] - 7 7 [facility] T OFFICE 94632 [facility] OUTPATIEN 7 7 PHYSICIAN T VISIT S GROUP 25 MINUTES OFFICE 30067 [facility] 7 [facility] P [facility]ES [facility] 7 7 [facility] - 7 7 [facility] OUTPATIEN INC T OFFICE 09717 [facility] 7 7 [facility] 10 P MINUTES [facility]OSP[facility] - 7 7 [facility] - 7 7 [facility] OUTPATIEN INC T OFFICE 63786 [facility] PET[facility] OUTPATIEN 7 7 PHYSICIAN T VISIT S GROUP 15 MINUTES HOSPITAL [facility] OTHER 7 7 [facility] INC [facility] 7 7 [facility] E OFFICE 15528 [facility] OUTPATIEN 7 7 PHYSICIAN T NEW 20 S GROUP MINUTES [facility] 7 7 [facility] LA[facility]A - 7 7 [facility] OUTPATIEN INC T OFFICE 81401 [facility] OUTPATIEN 7 7 PHYSICIAN T VISIT S GROUP 25 MINUTES [facility] 7 7 [facility] E [facility] 7 [facility] 7 7 [facility]ALTH[facility] E EMERGENCY 22310 KEVIN PATRICK DEPT 7 7 PHYSICIAN VISIT S, [facility] HIGH SEVERITY& THREAT [facility] - 7 7 [facility]CAR OUTPATIEN E T HOSPITALS OFFICE 19210 MUNDO [place] OUTPATIEN 7 7 MEDICAL T VISIT SERV 25 FOUNDATIO MINUTES N [facility] IN[facility] 7 7 [facility] E [facility] INPAT[facility] 6 6 [facility]ALTH[facility] E [facility] INPATIENT 6 6 [facility] E HOSPITAL LA[facility]A - 6 6 [facility] OUTPATIEN INC T OFFICE 56029 MUNDO BENAVIDES OUTPATIEN 6 6 MEDICAL T VISIT SERV 25 FOUNDATIO MINUTES N [facility] 6 6 [facility]ALTHCAR E [facility] 6 6 [facility] E OFFICE 52717 [facility] OUTPATIEN 6 6 PHYSICIAN MAT T VISIT S GROUP 25 MINUTES HOSPITAL [facility] - 6 6 [facility] OUTPATIEN INC T [facility] 6 6 [facility]ALTH[facility] E [facility] 6 6 [facility] 6 6 [facility]ALTHCAR E OFFICE 76969 [facility] OUTPATIEN 6 6 PHYSICIAN MAT T VISIT S GROUP 25 MINUTES OFFICE 08455 [facility] OUTPATIEN 6 6 PHYSICIAN MAT T VISIT S GROUP 25 MINUTES HOSPITAL MEAWVIE - [address] [facility] LAURA - 6 6 [facility] OUTPATIEN INC T OFFICE 95742 [facility] OUTPATIEN 6 6 PHYSICIAN MAT T VISIT S GROUP 25 MINUTES HOSPITAL PATRICIAWVIE - 6 6 [facility] T OFFICE 93599 CARDIOVAS [facility] OUTPATIEN 6 6 CULAR MAT T VISIT CONSULTAN 25 TS O MINUTES EMERGENCY 86575 [facility] 5 5 [facility] DEPARTMEN INC T VISIT LOW/MODER SEVERITY [facility]OSP[facility] - 5 5 [facility] OUT[facility]EN [facility] T HOSPITAL [facility]A [facility] 5 5 [facility] T OFFICE 33760 CARDIOVAS [facility] OUTPATIEN 5 5 CULAR MAT T VISIT CONSULTAN 40 TS O MINUTES [facility]OSPITAL UN[facility]ERSIT - 5 5 [facility] 21728 [facility] 5 5 Y T VISIT 5 HOSPITAL [facility] LAURA - 5 5 [facility] OUTPATIEN [facility] T EMERGENCY 97310 [facility]UR[facility] 5 5 [facility] DEPARTMEN INC T VISIT MODERATE SEVERITY [facility]OSPITAL [facility] - 5 5 [facility]A - 4 4 [facility]EN [facility] T OFFICE 02125 MUNDO VICKIER OUTPATIEN 4 4 MEDICAL SHA T NEW SERV MINUTES FOUNDATIO N OFFICE 94940 [facility] 4 4 T VISIT 10 MINUTES OFFICE 26017 [facility] 4 4 T VISIT 10 MINUTES HOSPITAL [facility] - 4 4 [facility] T OFFICE 28660 ANNETTE BRYANT OUTPATIEN 4 4 DEUCE DEUCE T NEW 30 MINUTES HOSPITAL [facility] - 4 4 [facility] T OFF[facility] 21131 [facility] 4 4 PHYSICIAN JAM T VISIT S GROUP 15 MINUT[facility] HOSPITAL [facility]A - 3 3 [facility] OUTPATIEN [facility]A - 3 3 [facility] OUTPATIEN [facility] LAURA - 3 3 [facility] OUTPATIEN [facility] Emergency LINDSEY Sánchez MD (ER) 3 18:45 3 19:27 [facility] OFFICE 89739 [facility] 3 3 NEUROLOGY [facility] 15 [place] MINUTES HOSPITAL [facility]URA - 3 3 [facility] - 3 3 [facility] OFFICE 29046 [facility] 3 3 FOOT AND T NEW 20 ANKLE MINUTES CENTER OFFICE 00978 [facility] 3 3 [facility] VISIT HOSPITAL 25 MINUTES Emergency LINDSEY Patrick MD (ER) 3 23:50 3 01:33 [facility] EMERGENCY 43326 ERIC PATRICK DEPT 3 3 MEDICAL ARMANDO VISIT GROUP, HIGH PLLC SEVERITY& THREAT [facility] LAURA - 3 3 [facility] OUTPATIEN [facility] EMERGENCY 66494 LAURA 3 [address] [facility] T VISIT HIGH/URGE NT SEVERITY EMERGENCY 56678 [facility] CHRIS [address] [facility] EMERGENCY T VISIT PHYSI MODERATE SEVERITY [facility]OSPITAL [address] [facility] [address] T VISIT LOW/MODER SEVERITY OFFICE 64576 Mike MCBRIDEJUOlya-TAYE OUTPATIEN 3 3 [facility] T VISIT CARDIOLOG 15 Y CLINIC MINUTES [facility]URA - 3 3 [facility] OUTPATIEN INC OFFICE 53784 C ANTONETTENic GEORGE OUTPATIEN 2 2 DORIS Dillon MD PSC MINUTES OFFICE [address] [facility] 2 2 ZO Lacey VISIT CARDIOLOG 25 Y CLINIC MINUTES [facility]OSPITAL [facility] - 2 2 [facility]A - 2 2 [facility] EMERGENCY 75788 [facility] 2 2 [facility] DEPARTMEN [facility] T VISIT MODERATE SEVERITY HOSPITAL [facility]A - 2 2 [facility] EMERGENCY 59416 [facility] 2 2 [facility] DEPARTMEN [facility] T VISIT HIGH/URGE NT SEVERITY HOSPITAL [facility] - 2 2 [facility] EMERGENCY 87559 [facility] 2 2 [facility] DEPARTMEN [facility] T VISIT LOW/MODER SEVERITY [facility]OSPITAL [facility] - 2 2 [facility] - 1 1 [facility] - 1 1 [facility] EMERGENCY 39679 [facility] 1 1 [facility] DEPARTMEN [facility] T VISIT HIGH/URGE NT SEVERITY [facility]OSPITAL [facility] - 1 1 [facility] - 1 1 [facility] - 1 1 [facility] OFFICE 49231 [place] [facility] OUTPATIEN 1 1 MEDICAL JAM T NEW 60 SERV MINUTES [facility] LAURA - 1 1 [facility] OUTPATIEN [facility] LAURA - 1 1 [facility] OUTPATIEN INC T EMERGENCY 74141 AMANDA PATRICK DEPT 1 1 EMERGENCY ARMANDO VISIT SERVICES HIGH SEVERITY& THREAT FUNCJ EMERGENCY 00401 [facility] 1 1 [facility] DE[facility] INC T VISIT HIGH/URGE NT SEVERITY OFFICE 97886 LAURA MATHIS OUTPATIEN 1 1 [facility] 30 HOSPITAL MINUTES P OFFICE 68941 FAMILY MONOHAN OUTPATIEN 1 1 PRACT RONALD T VISIT ASSOC OF 25 [place] PS MINUTES OFFICE 84609 FAMILY MONOHAN OUTPATIEN 1 1 PRACT RONALD T VISIT ASSOC OF 25 [place] PS MINUTES EMERGENCY 05047 [facility] DESMOND DEPT 1 1 PRIMARY CARLOS VISIT CARE HIGH PHYSICANS SEVERITY& M THREAT FUNJ
--- OUTSIDE RECORDS SUMMARY | 2017-05-17 17:26 | External Medical Summary Rpt | CCD ---
Author Author , GRAHAM Organization GRAHAM Address Unknown Phone [email or web address] Care Team Providers Care Manager Treasury Name Role Phone [facility], [facility] Unavailable Unavailable [facility], [facility] Unavailable Unavailable RADHA BOY, RADHA Unavailable Unavailable BOY [facility] Unavailable Unavailable PHYSICANS M, [facility] M LEAL, LEAL Unavailable Unavailable [facility] Unavailable Unavailable [facility]OC[facility], [facility] Unavailable Unavailable ASSOCIATES, [facility] DESMOND CARLOS, Unavailable Unavailable DESMOND [...] JAM BRAUDIS JAM, BRAUDIS Unavailable Unavailable JAM [facility] Unavailable Unavailable SERVICE, [facility] Unavailable Unavailable SERVICE, [facility] DOBSON LAR, DOBSON LAR Unavailable Unavailable C ANTONETTE GEORGE MD Unavailable Unavailable [facility], C ANTONETTE GEORGE MD [facility] Unavailable Unavailable CON[facility]ULTANTS O, [facility] Unavailable Unavailable ASSOC, [facility] CHIPPS SUNITHA & Unavailable Unavailable DUBILIER, [facility] SUNITHA & DUBILIER [facility], Unavailable Unavailable [facility] Unavailable Unavailable LA, [facility]available Unavailable [facility], [facility] DEL JR MARCY, DEL Unavailable Unavailable JR MARCY [facility] Unavailable Unavailable [facility]ENTER, [facility] ALEISHA KIERAN, Unavailable Unavailable ALEISHA KIERAN MARIANNE VISION, Unavailable Unavailable [facility] QUINTERO ERNST, Unavailable Unavailable QUINTERO ERNST QUINTERO ERNST, Unavailable Unavailable QUINTERO ERNST [facility], Unavailable Unavailable [employer] [facility] VINH DYLAN, Unavailable Unavailable VINH DYLAN [...] ARMANDO AURY ARMANDO, AURY Unavailable Unavailable ARMANDO SUAD ARMANDO, SUAD ARMANDO Unavailable Unavailable [facility] Unavailable Unavailable INC, [facility] Unavailable Unavailable HOSPITAL, [facility] Unavailable [facility]available HOSPITAL P, [facility] HEEB CHR, [facility] Unavailable Unavailable [facility], [facility] Unavailable Unavailable [facility], [facility] Unavailable Unavailable [facility], Unavailable Unavailable [facility] Unavailable Unavailable IMAGING [facility], [facility] KIERRA THO, KIERRA THO Unavailable Unavailable [facility] Un[facility] BRYANT, BRYANT Unavailable Unavailable BRYANT DEUCE, BRYANT Unavailable Unavailable DEUCE CHRIS EHSAN, CHRIS Unavailable Unavailable EHSAN HAROLDO JR DWI, HAROLDO Unavailable Unavailable JR DWI HAROLDO JR DWI, HAROLDO Unavailable Unavailable JR DWI [facility] Unavailable Unavailable 11, [facility] 11 [facility], Unavailable Unavailable [facility] Unavailable Unavailable ACTION, [facility] KNOWLES JAM, Unavailable Unavailable KNOWLES JAM KNOWLES JAM, Unavailable Unavailable KNOWLES JAM BENAVIDES, BENAVIDES Unavailable Unavailable BENAVIDES JAM, Unavailable Unavailable BENAVIDES J[facility] Unavailable MED[facility], [facility] Unavailable Unavailable MEDICAL, [facility] Unavailable Unavailable [facility], [employer] [facility] Unavailable Unavailable SERVICE, [facility] MONOHAN RONALD, MONOHAN Unavailable Unavailable RONALD SIEGEL JUAQUIN, SIEGEL Unavailable Unavailable JUAQUIN ONDINA, ONDINA Unavailable Unavailable ONDINA SHA, ONDINA Unavailable Unavailable SHA NEILS JONATHAN, NEILS JONATHAN Unavailable Unavailable [facility] Unavailable Unavailable URGENT TREAT, [facility] Unavailable Unavailable LABORATORY, [facility] Unavailable Unavailable LABORATORY, [facility] Unavailable Unavailable PLL[facility], [facility] JENNIFER III OANH, Unavailable Unavailable JENNIFER, III OANH PETTEY, PETTEY Unavailable Unavailable PETTEY JAM, PETTEY Unavailable Unavailable JAM [facility], Unavailable Unavailable [facility], Unavailable Unavailable [facility] PUND CHR, PUND CHR Unavailable Unavailable MIRA MARCY, MIRA Unavailable Unavailable MARCY [facility], Unavailable Unavailable [facility] MEREDITH, MEREDITH Unavailable Unavailable MEREDITH MAT, Unavailable Unavailable MEREDITH MAT EBONI Rose, EBONI J Unavailable Unavailable SKRIP JR., SKRIP JR. Unavailable Unavailable SKRIP JR. SELVIN, SKRIP Unavailable Unavailable JR. SELVIN [facility] Unavailable Unavailable [facility], [facility] Un[facility] Unavailable TREATMENT A, [facility] Unavailable Unavailable EMERGENCY PH[facility]SI, [facility] Un[facility] Un[facility], [facility], Unavailable Unavailable [facility] Unavailable Unavailable CLINIC, [facility] Unavailable Unavailable SURGERY C, [facility] Unavailable Unavailable HOSPITALS, [facility], Unavailable Unavailable [facility] WEHRMAN III MARCY, Unavailable Unavailable WEHRMAN III MARCY ZEKE BAR, ZEKE BAR Unavailable Unavailable ZEKE BAR, ZEKE BAR Unavailable Unavailable KALINA A, Unavailable Unavailable KALINA A Purpose Continuity of Care Document - 12-28-2010 through 2016 Problems Code Diagnosis DOS Provider Status D649 ANEMIA 04-11-2017 [facility] N390 URINARY 04-07-2017 [facility] TRACT [facility] INFECTION INC SITE NOT SPECIFIED I2510 ASHD BOIS FORTE 04-06-2017 [facility] ARTERY W/O ANGINA PECTORIS R627 ADULT 04-06-2017 [facility] FAILURE TO HEALTH THRIVE ASSOCIATES G4733 OBSTRUCTIVE 04-04-2017 [facility] SLEEP [facility] APNEA ADULT INC PEDIATRIC I509 HEART 04-04-2017 [facility] FAILURE [facility] UNSPECIFIED INC J449 CHRONIC 04-04-2017 [facility] OBSTRUCTIVE [facility] PULMONARY INC DISEASE UNS R0602 SHORTNESS 04-04-2017 [place] [facility] R1310 DYSPHAGIA 04-04-2017 [place] [facility] R5383 OTHER 04-04-2017 [facility] R942 ABNORMAL 04-04-2017 [facility] RESULTS OF [facility] PULMONARY INC FUNCTION STUDIES E162 HYPOGLYCEMI 03-27-2017 [facility] A HEALTH UNSPECIFIED ASSOCIATES A63092 OTHER LONG 03-21-2017 [facility] CURRENT ASSOCIATES DRUG THERAPY B351 TINEA 02-05-2017 SPECIAL UNGUIUM CARE PODIATRY OF [place] O21648 PAIN IN 02-05-2017 SPECIAL RIGHT TOES CARE PODIATRY OF [place] U32448 PAIN IN 02-05-2017 SPECIAL LEFT TOES CARE PODIATRY OF [place] R69 ILLNESS 01-16-2017 [facility] UNSPECIFIED TRANSPORTAT ION SER Z9989 DEPENDENCE 01-16-2017 [place] [facility] OTHER SERV ENABLING Xcalar MACHINES & DEVICES S20317 PAIN IN 01-13-2017 [facility] RIGHT KNEE LLC B43518 PAIN IN 01-13-2017 [facility] RIGHT LEG LLC K53988 PAIN IN 01-13-2017 [facility] RIGHT LOWER LLC LEG E119 TYPE 2 01-09-2017 [facility] DIABETES [facility] MELLITUS ASSOCIATES WITHOUT COMPLICATIO NS I10 ESSENTIAL 01-09-2017 [facility] HEALTH HYPERTENSIO ASSOCIATES N R4182 ALTERED 01-09-2017 [facility] MENTAL HEALTH STATUS ASSOCIATES UNSPECIFIED R531 WEAKNESS 01-09-2017 [facility] Z7409 OTHER 01-09-2017 [facility] REDUCED [facility] MOBILITY INC I517 CARDIOMEGAL 01-08-2017 [facility] Y LLC [id number] PAIN IN 01-04-2017 [facility] RIGHT WRIST MEDICAL IMAGING ASS M7989 OTHER 01-04-2017 [facility] SPECIFIED MEDICAL SOFT TISSUE IMAGING ASS DISORDERS R609 EDEMA 01-04-2017 [facility] UNSPECIFIED [facility] HOSP INC V81198 PAIN IN 01-01-2017 [facility] RIGHT LLC FOREARM M7541 IMPINGEMENT 12-28-2016 [facility] SYNDROME PHYSICIANS OF RIGHT GROUP SHOULDER E6601 MORBID 12-19-2016 [facility] SEVERE PHYSICIANS OBESITY DUE GROUP TO EXCESS CALORIES E785 HYPERLIPIDE 12-19-2016 [facility] OSMANY PHYSICIANS UNSPECIFIED GROUP I119 HYPERTENSIV 12-19-2016 [facility] E HEART PHYSICIANS DISEASE GROUP WITHOUT HEART FAILURE N3000 ACUTE 12-12-2016 [facility] P HEMATURIA I272 OTHER 11-27-2016 [facility] SECONDARY MEM [facility]OS[facility] PULMONARY INC HYPERTENSIO N N3001 ACUTE 11-21-2016 [facility] P HEMATURIA S75474 PAIN IN 11-16-2016 [facility] RIGHT MEDICAL SHOULDER IMAGING ASS K140 GLOSSITIS 11-02-2016 [facility] R918 OTHER 10-11-2016 [facility] NONSPECIFIC LLC ABNORMAL FINDING OF LUNG FIELD R0682 TACHYPNEA 09-19-2016 [facility] NOT PHYSICIANS ELSEWHERE GROUP CLASSIFIED R072 PRECORDIAL 09-04-2016 [facility] PAIN PHYSICIANS, [facility] R0789 OTHER CHEST 09-04-2016 [facility] PAIN AMBULANCE SERVICE R079 CHEST PAIN 09-04-2016 [facility] UNSPECIFIED [facility] IMAGING ASS Z955 PRESENCE OF 09-04-2016 [facility]GI[facility]OSPITAL P IMPLANT & GRAFT Y85949 MECHANICAL 08-24-2016 [place] [facility] OF SERV RIGHT FOUNDATION EYELID T51031 DERMATOCHAL 08-24-2016 [place] [facility] [place] OF SERV RIGHT EYE FOUNDATION UNSPECIFIED EYELID D56646 DERMATOCHAL 08-24-2016 [place] [facility] OF SERV LEFT EYE FOUNDATION UNSPECIFIED EYELID G4730 SLEEP APNEA 06-07-2016 [place] [facility] UNSPECIFIED FOUNDATION E876 HYPOKALEMIA 05-29-2016 [facility] K219 GASTRO-ESOP 04-25-2016 [facility] REFLUX [facility] DISEASE [facility] P WITHOUT ESOPHAGITIS Q22287 SPONDYLOSIS 04-04-2016 [facility] W/O MEDICAL MYELOPATH/R IMAGING ASS ADICULOPATH Y CERV RGN M5032 OTH CERV 04-04-2016 [facility] DISC MEDICAL DEGENERATIO IMAGING ASS N MID-CERVICA L REGION M542 CERVICALGIA 04-04-2016 [facility] M545 LOW BACK 04-04-2016 [facility] PAIN MEDICAL IMAGING ASS M546 PAIN IN 04-04-2016 [facility] THORACIC MEDICAL SPINE IMAGING ASS U024TZF UNSPECIFIED 04-04-2016 [facility] INJURY OF MEDICAL NECK IMAGING ASS INITIAL ENCOUNTER E7508EX UNSPECIFIED 04-04-2016 [facility] INJURY MEDICAL LOWER BACK IMAGING ASS INITIAL ENCOUNTER K449 DIAPHRAGMAT 03-03-2016 [facility] IC HERNIA [facility] W/O HOSPITAL P OBSTRUCTION OR GANGRENE J25133 PERSONAL 03-03-2016 [facility] HISTORY OF [facility] P DEPENDENCE I208 OTHER FORMS 02-25-2016 [facility] OF ANGINA PHYSICIANS PECTORIS GROUP O75578 [facility] BOIS FORTE 02-25-2016 [facility] COR ART PHYSICIANS W/UNSTABLE GROUP ANGINA PECTORIS E662 MORBID 02-21-2016 [facility] OBESITY HOSPITAL P W/ALVEOLAR HYPOVENTILA TION Z98839 ASH BOIS FORTE 02-21-2016 [facility] COR ARTREY [facility] W/UNS HOSPITAL P ANGINA PECTORIS M654 RADIAL 02-16-2016 [facility] STYLOID [facility] TENOSYNOVIT INC IS DE QUERVAIN K03348 OTHER 02-16-2016 [facility] SYNOVITIS [facility] HOSP AND INC TENOSYNOVIT IS RIGHT HAND I209 ANGINA 12-08-2015 [place] PECTORIS REGIONAL UNSPECIFIED MEDICAL N11129 ASHD BOIS FORTE 12-08-2015 [facility] COR ART PHYSICIANS W/OTH FORMS GROUP ANGINA PECTORIS R0600 DYSPNEA 11-29-2015 [facility] UNSPECIFIED [facility] HOSP INC [id number] CONCUSSION 11-20-2015 [facility] W/LOC 30 [facility] P INITIAL ENCOUNTER Q0914DO UNSPECIFIED 11-20-2015 [facility] INJURY OF MEDICAL HEAD IMAGING ASS INITIAL ENCOUNTER Y654KEH STRAIN 11-20-2015 [facility] MUSCLE [facility] P NECK LEVL INIT ENC H85087S CONTUSION 11-20-2015 [facility] UNS BACK [facility] P INITIAL ENCOUNTER Z043 ENCOUNTER 11-20-2015 [facility] EXAM & MEDICAL OBSERVATION IMAGING ASS FOLLOW OTH ACCIDENT R339 RETENTION 07-12-2015 AICHA JEANIE OF URINE UNSPECIFIED I64129 PAIN IN 06-30-2015 [facility] LEFT MEDICAL FINGERS IMAGING ASS U1361GP UNSPECIFIED 06-30-2015 [facility] INJURY LT MEDICAL WRIST HAND IMAGING ASS FINGERS INITIAL B353 TINEA PEDIS 06-08-2015 [facility] HOSP INC 78199 OBSTRUCTIVE 05-04-2015 [facility] SLEEP [place] [facility] [place] 77318 UNSPEC HTN 05-04-2015 [facility] HEART LAR DISEASE CONSULTANTS WITHOUT O HEART FAIL 12177 COR 05-04-2015 [facility] ATHEROSLERO [facility] HOSP UNSPEC INC TYPE VESSEL BOIS FORTE/MAHSA T 4160 PRIMARY 05-04-2015 [facility] PULMONARY LAR HYPERTENSIO CONSULTANTS N O 4168 OTHER 05-04-2015 [facility] CHRONIC [facility] PULMONARY INC HEART DISEASES 496 CHRONIC 05-04-2015 [facility] AIRWAY MEM HOSP OBSTRUCTION INC NEC 32448 05-04-2015 [facility] ION SER V7284 UNSPECIFIED 05-04-2015 [facility] PRE-OPERATI INC VE EXAMINATION 3699 UNSPECIFIED 04-28-2015 [facility] LOSS 03832 UNSPECIFIED 04-28-2015 [facility] EYELID V7283 OTHER 04-28-2015 [facility] HOSPITAL PRE-OPERATI VE EXAMINATION 08490 ACUTE 02-16-2015 [facility] RESPIRATORY FAILURE 4111 INTERMEDIAT 01-25-2015 [facility] E CORONARY LAR SYNDROME CONSULTANTS O 4293 CARDIOMEGAL 01-23-2015 [facility] Y [facility] ASS 5920 CALCULUS OF 01-23-2015 [facility] KIDNEY [facility] 92537 UNSPECIFIED 01-23-2015 [facility] RETENTION MEDICAL OF URINE IMAGING ASS 23262 ABDOMINAL 01-23-2015 [facility] PAIN RIGHT MEDICAL LOWER IMAGING ASS QUADRANT 26262 PAIN IN 01-03-2015 [facility] JOINT MEDICAL PELVIC IMAGING ASS REGION AND THIGH 07884 DISPLCMT 01-03-2015 [facility] THOR MEDICAL INTERVERT IMAGING ASS DISC WITHOUT MYELOPATHY 7231 CERVICALGIA 01-03-2015 [facility] 7241 PAIN IN 01-03-2015 [facility] THORACIC MEDICAL SPINE IMAGING ASS 66942 CHEST PAIN 01-03-2015 [facility] UNSPECIFIED MEDICAL IMAGING ASS 57952 HYPERTENSIV 12-28-2014 [facility] E HEART [facility] DISEASE INC UNSPEC W/HEART FAIL 4280 CONGESTIVE 12-28-2014 [facility] HEART [facility] HOSP FAILURE INC UNSPECIFIED 45920 ESOPHAGEAL 12-28-2014 [facility] REFLUX [facility] HOS[facility] INC 73478 SHORTNESS 12-28-2014 [facility] OF BREATH MEDICAL IMAGING ASS 82754 OTHER 12-18-2014 [facility] DYSPNEA AND [place] [address] MECHANICAL 04-01-2014 [place] [facility] 2449 UNSPECIFIED 03-18-2014 [facility] HOSP HYPOTHYROID INC ISM 09835 PANNUS 02-18-2014 [facility] 5950 ACUTE 12-18-2013 [facility] CYSTITIS [facility] P 70193 NOCTURNAL 12-18-2013 [facility] ENURESIS [facility] P 54089 OTHER 11-24-2013 [facility] MUCOPURULEN T CONJUNCTIVI TIS 13308 UNSPECIFIED 10-02-2013 [facility] URINARY [facility] P E 3831 CHRONIC 09-05-2013 [facility] MASTOIDITIS [facility] HOSP INC 3839 UNSPECIFIED 09-05-2013 [facility] HOSP MASTOIDITIS INC 93234 UNSPECIFIED 09-05-2013 [facility] OTALGIA [facility] INC 470 DEVIATED 09-05-2013 [facility] NASAL MEDICAL SEPTUM IMAGING ASS 53854 OTHER 09-05-2013 [facility] DISEASES OF MEDICAL NASAL IMAGING ASS CAVITY AND SINUSES 92409 ARTHRALGIA 09-05-2013 [facility] HOSP TEMPOROMAND INC IBULAR JOINT 34429 PAIN IN 08-15-2013 [facility] JOINT, PHYSICIANS FOREARM GROUP 27384 PAIN IN 08-15-2013 [facility] JOINT, MEM HOSP LOWER LEG INC 68873 PLICA 08-15-2013 [facility] SYNDROME PHYSICIANS GROUP 3540 CARPAL 06-23-2013 [facility] TUNNEL [facility] HOSP SYNDROME INC V5869 LONG-TERM 06-23-2013 [facility] (CURRENT) [facility] HOS[facility] USE OF INC OTHER MEDICATIONS 2724 OTHER AND 05-23-2013 [facility] HYPER[facility] OSMANY 5180 PULMONARY 05-23-2013 [facility] COLLAPSE [facility]ICAL IMAGING ASS 97877 ACUTE 05-08-2013 EL[facility] FOLLICULAR JAM CONJUNCTIVI TIS 91914 CONTACT AND 05-08-2013 [facility] ALLERGIC JAM DERMATITIS OF EYELID 17947 VITREOUS 05-08-2013 EL[facility] DEGENERATIO JAM N 3688 OTHER 04-16-2013 [facility] SPECIFIED [facility]OLOGY VISUAL [facility] [place] DISTURBANCE S 7820 DISTURBANCE 04-16-2013 [facility] OF SKIN NEUROLOGY SENSATION [facility] [place] 1101 DERMATOPHYT 04-11-2013 BRATYREES [place] OSIS OF NAIL 69817 ATHEROSCLER 04-11-2013 [facility]ATY[facility] [place] OSIS BOIS FORTE ART EXTREMITIES UNSPEC 7011 ACQUIRED 04-11-2013 BRAUDIS [place] KERATODERMA 7295 PAIN IN 04-11-2013 BRAUDIS JAM SOFT TISSUES OF LIMB 17371 SPONDYLOSIS 03-19-2013 [facility] UNSPEC MEDICAL SITE W/O IMAGING ASS MENTION MYELOPATHY 7238 OTHER 03-19-2013 [facility] SYNDROMES MEDICAL AFFECTING IMAGING ASS CERVICAL REGION 62388 DIAB W/O 02-13-2013 [facility] COMP TYPE [facility] II/UNS NOT INC STATED UNCNTRL 78568 BARRETTS 02-13-2013 [facility] ESOPHAGUS SUNITHA & DUBILIER 7871 HEARTBURN 02-13-2013 [facility] HOSP INC 71686 ONYCHIA AND 02-06-2013 [facility] PARONYCHIA AND ANKLE OF TOE CENTER 7030 INGROWING 02-06-2013 [facility] NAIL AND ANKLE CENTER 340 MULTIPLE 01-30-2013 [facility] SCLEROSIS [facility] 4149 UNSPECIFIED 01-30-2013 [facility] ISCHEMIC [facility] HEART DISEASE 48920 OTHER 01-30-2013 [facility] CONVULSIONS [facility] 67597 UNSPECIFIED 01-30-2013 [facility] SLEEP [facility] APNEA HOSPITAL 68591 HEMATURIA 01-15-2013 [facility] UNSPECIFIED [facility] P 51622 ABDOMINAL 01-15-2013 [facility] PAIN, AMBULANCE UNSPECIFIED SERVICE SITE 08342 PUNCTATE 01-08-2013 [facility] N EMERGENCY PHYSI 16294 BLEPHARITIS 01-08-2013 [facility] UNSPECIFIED V7644 SPECIAL 11-13-2012 COMBINED SCREENING PHYSICIANS MALIGNANT LA NEOPLASM OF PROSTATE 5990 URINARY 11-11-2012 COMBINED TRACT PHYSICIANS INFECTION LA SITE NOT SPECIFIED 4019 UNSPECIFIED 10-28-2012 [facility] ESSENTIAL CARDIOLOGY HYPERTENSIO CLINIC N 75500 CORONARY 10-28-2012 [facility] ATHEROSCLER CARDIOLOGY OSIS [facility] FORTE CLINIC CORONARY ARTERY 98938 PAIN IN 10-27-2012 [facility]INT, [place] [address] PAIN IN 10-27-2012 [facility] JO[facility], MOBILE UPPER ARM DIAGNOSTIC SE 7823 EDEMA 09-19-2012 BRAUDIS JAM 67517 DIVERTICULO 08-08-2012 [facility] SIS OF MEM HOSP COLON INC 5693 HEMORRHAGE 08-08-2012 [facility] OF RECTUM MEM HOS[facility] AND ANUS INC V160 FM HX 08-01-2012 C ANTONETTE MALIGNANT SCHULSTAD NEOPLASM PSC GASTROINTES TINAL TRACT V7651 SPECIAL 08-01-2012 C ANTONETTE SCREENING SCHULSTAD FOR PSC MALIGNANT NEOPLASMS COLON 4139 OTHER AND 03-25-2012 HAROLDO MARTINEZ UNSPECIFIED DWI ANGINA PECTORIS 5533 DIAPHRAGMAT 03-10-2012 [facility] MARTHA W/O MEDICAL MENTION IMAGING ASS OBSTRUCTION /GANGREN 5718 OTHER 03-10-2012 [facility] CHRONIC MEDICAL NONALCOHOLI IMAGING ASS C LIVER DISEASE 5939 UNSPECIFIED 03-10-2012 [facility] DISORDER MEDICAL OF KIDNEY IMAGING ASS AND URETER 7881 DYSURIA 03-07-2012 [facility]OS[facility] INC 4589 UNSPECIFIED 03-04-2012 WEHRMAN III MARCY HYPOTENSION 5849 ACUTE 03-04-2012 WEHRMAN III KIDNEY MARCY FAILURE UNSPECIFIED 7224 DEGENERATIO 01-25-2012 [facility] N OF MEDICAL CERVICAL IMAGING ASS INTERVERTEB RAL DISC 7842 SWELLING 01-25-2012 WEHRMAN III MASS OR MARCY LUMP IN HEAD AND NECK 7856 ENLARGEMENT 01-25-2012 [facility] OF LYMPH MEDICAL NODES IMAGING ASS 70437 DYSPHAGIA 01-25-2012 [facility] UNSPECIFIED AMBULANCE SERVICE 1122 CANDIDIASIS 01-11-2012 MIRA MARCY OF OTHER UROGENITAL SITES 36914 OTHER 01-11-2012 [facility] CANDIDIASIS MEM HOSP OF OTHER INC SPECIFIED SITES 7912 HEMOGLOBINU 01-11-2012 [facility] SHARON AMBULANCE SERVICE 74958 NONSPECIFIC 09-11-2011 ZEKE BAR ABNORMAL ELECTROCARD IOGRAM 60905 HYPERSOMNIA 07-18-2011 [facility] WITH SLEEP ERNST APNEA UNSPECIFIED 61091 ABDOMINAL 07-04-2011 [facility] PAIN, AMBULANCE PERIUMBILIC SERVICE 6010 ACUTE 07-03-2011 [facility] ARMANDO PROSTATITIS 6019 UNSPECIFIED 07-03-2011 [facility] PROSTATITIS INC 12299 ASTHMA, 06-14-2011 BESSON JEANIE UNSPECIFIED , UNSPECIFIED STATUS 66017 OTHER CHEST 06-14-2011 BESSON JEANIE PAIN 76925 OTHER 06-13-2011 [facility] NONSPECIFIC MEDICAL ABNORMAL IMAGING ASS FINDING OF LUNG FIELD 88416 MORBID 05-31-2011 [place] [facility] 4778 ALLERGIC 05-31-2011 [place] [facility] RHINITIS SERV DUE TO FOUNDATIO OTHER ALLERGEN 83340 APNEA 05-31-2011 [facility] HOSP INC 7019 UNSPECIFIED 05-19-2011 [facility] PATHOLOGY HYPERTROPHI LABORATORY C&ATROPHIC CONDITION SKIN 5210 DENTAL 05-16-2011 THE IMPLANT CARIES & ORAL SURGERY C 87648 UNSPECIFIED 05-08-2011 MARIANNE VISION BLEPHAROCON JUNCTIVITIS 7862 COUGH 04-26-2011 [facility] 36823 UNSPECIFIED 03-30-2011 [facility] [place] CONJUNCTIVI URGENT TIS TREAT 51763 PAIN IN 03-30-2011 [facility], HAND MOBILE DIAGNOSTIC SE 6961 OTHER 03-23-2011 [facility] [place] PSORIASIS URGENT AND SIMILAR TREATMENT A DISORDERS 27172 OBESITY, 03-12-2011 [facility] [place] UNSPECIFIED URGENT TREATMENT A 55970 INSOMNIA 03-12-2011 [facility] [place] UNSPECIFIED URGENT TREATMENT A 514 PULMONARY 03-02-2011 EXPRESS CONGESTION MOBILE AND DIAGNOSTIC HYPOSTASIS SE 7242 LUMBAGO 02-25-2011 [facility] [place] URGENT TREATMENT A 7245 UNSPECIFIED 02-10-2011 [facility] V771 SCREENING 02-10-2011 [facility] FOR PRACT ASSOC DIABETES OF [place] PS MELLITUS 5968 OTHER 12-28-2010 [facility] [place] SPECIFIED RADIOLOGY DISORDERS OF BLADDER 68047 DIARRHEA 12-28-2010 [facility] M Medications Na ND Rx Da Fi Fi [...] 00 RE 32 ES 44 17 17 NM IU 9 PH CH M AR AE CI MA L TR CY S AT E LL SO C BRYAN TI ON ST 00 03 10 0 30 30 ME 15 GA Ac OO 53 -1 -0 0. D 04 IN ti L 61 9- 2- 00 CA 39 EY ve SO 06 20 20 0 RE 09 FT 41 17 17 NM EN 0 PH CH ER AR AE MA L 25 CY S 0 MG LL C SO FT GE L LO 00 03 10 0 30 30 ME 15 GA Ac RA 78 -1 -0 0. D 04 IN ti TA 15 9- 2- 00 CA 39 EY ve DI 07 20 20 0 RE 10 NE 70 17 17 NM 1 PH CH 10 AR AE MA L MG CY S TA LL BL C ET BRYAN 00 03 09 0 30 7 ME 15 GA Ac BR 90 -1 -2 0. D 04 IN ti IC 46 8- 9- 00 CA 01 EY ve AT 32 20 20 0 RE 54 IN 94 17 17 NM G [address] AR AE US MA L CY S 0. 5% LL C EY E DR PS 00 03 09 0 30 30 ME 15 GA Ac PI 90 -1 -2 0. D 00 IN ti RI 46 9- 6- 00 CA 60 EY ve N 28 20 20 0 RE 67 81 88 17 17 NM 9 PH CH MG AR AE MA L CH CY S EW AB LL LE C TA BL ET MA 00 06 09 0 30 30 ME 14 GA Ac GN 60 -2 -1 0. D 94 IN ti ES 30 1- 5- 00 CA 75 EY ve IU 20 20 20 0 RE 67 M 92 17 17 NM OX 2 PH CH ID AR AE E MA L 40 CY S 0 MG LL C TA BL ET AC 00 03 09 0 35 15 ME 14 GA Ac ID 90 -0 -1 50 D 96 IN ti 47 4- 5- .0 CA 35 EY ve GO 72 20 20 00 RE 99 NE 71 17 17 NM 4 PH CH AN AR AE TA MA L CI CY S D LI LL QU C ID ST 00 03 09 0 30 30 ME 14 GA Ac OO 53 -1 -0 0. D 87 IN ti L 61 9- 2- 00 CA 29 EY ve SO 06 20 20 0 RE 28 FT 41 17 17 NM EN 0 PH CH ER AR AE MA L 25 CY S 0 MG LL C SO FT GE L LO 00 03 09 0 30 30 ME 14 GA Ac RA 78 -1 -0 0. D 87 IN ti TA 15 9- 2- 00 CA 29 EY ve DI 07 20 20 0 RE 29 NE 70 17 17 NM 1 PH CH 10 AR AE MA L MG CY S TA LL BL C ET 00 03 08 0 30 30 ME 14 GA Ac PI 90 -1 -2 0. D 83 IN ti RI 46 9- 8- 00 CA 86 EY ve N 28 20 20 0 RE 95 81 88 17 17 NM 9 PH CH MG AR AE MA L CH CY S EW AB LL LE C TA BL ET BRYAN 00 03 08 0 30 7 ME 14 GA Ac BR 90 -1 -2 0. D 82 IN ti IC 46 8- 4- 00 CA 01 EY ve AT 32 20 20 0 RE 42 IN 94 17 17 NM G [address] AR AE US MA L CY S 0. 5% LL C EY E DR PS BRAYN 00 03 08 0 30 7 ME 14 GA Ac BR 90 -1 -1 0. D 79 IN ti IC 46 8- 8 CA 87 EY ve AT 32 20 20 0 RE 03 IN 94 17 17 NM G [address] AR AE US MA L CY S 0. 5% LL C EY E DR PS MA 00 06 08 0 30 30 ME 14 GA Ac GN 60 -2 -1 0. D 77 IN ti ES 30 1- 6- 00 CA 18 EY ve IU 20 20 20 0 RE 99 M 92 17 17 NM OX 2 PH CH ID AR AE E MA L 40 CY S 0 MG LL C TA BL ET ST 00 03 08 0 30 30 ME 14 GA Ac OO 53 -1 -0 0. D 70 IN ti L 61 9- 4- 00 CA 77 EY ve SO 06 20 20 0 RE 91 FT 41 17 17 NM EN 0 PH CH ER AR AE MA L 25 CY S 0 MG LL C SO FT GE L LO 00 03 08 0 30 30 ME 14 GA Ac RA 78 -1 -0 0. D 70 IN ti TA 15 9- 4- 00 CA 77 EY ve DI 07 20 20 0 RE 92 NE 70 17 17 NM 1 PH CH 10 AR AE MA L MG CY S TA LL BL C ET 00 03 07 0 30 30 ME 14 GA Ac PI 90 -1 -3 0. D 69 IN ti RI 46 9- 1- 00 CA 21 EY ve N 28 20 20 0 RE 07 81 88 17 17 NM 9 PH CH MG AR AE MA L CH CY S EW AB LL LE C TA BL ET BRYAN 00 03 07 0 30 7 ME 14 GA Ac BR 90 -1 -2 0. D 68 IN ti IC 46 8- 9- 00 CA 73 EY ve AT 32 20 20 0 RE 52 IN 94 17 17 NM G [address] AR AE US MA L CY S 0. 5% LL C EY E DR PS MA 00 06 07 0 30 30 ME 14 GA Ac GN 60 -2 -1 0. D 63 IN ti ES 30 1- 9- 00 CA 33 EY ve IU 20 20 20 0 RE 43 M 92 17 17 NM OX 2 PH CH ID AR AE E MA L 40 CY S 0 MG LL C TA BL ET AC 00 03 07 0 35 15 ME 14 GA Ac ID 90 -0 -1 50 D 62 IN ti 47 4- 8- .0 CA 01 EY ve GO 72 20 20 00 RE 68 NE 71 17 17 NM 4 PH CH AN AR AE TA MA L CI CY S D LI LL QU C ID BRYAN 00 03 07 0 30 7 ME 14 GA Ac BR 90 -1 -1 0. D 60 IN ti IC 46 8- 5- 00 CA 60 EY ve AT 32 20 20 0 RE 69 IN 94 17 17 NM G [address] AR AE US MA L CY S 0. 5% LL C EY E PS ST 00 03 07 0 30 30 ME 14 GA Ac OO 53 -1 -0 0. D 53 IN ti L 61 9- 6- 00 CA 43 EY ve SO 06 20 20 0 RE 01 FT 41 17 17 NM EN 0 PH CH ER AR AE MA L 25 CY S 0 MG LL C SO FT GE L LO 00 03 07 0 30 30 ME 14 GA Ac RA 78 -1 -0 0. D 53 IN ti TA 15 9- 6- 00 CA 43 EY ve DI 07 20 20 0 RE 02 NE 70 17 17 NM 1 PH CH 10 AR AE MA L MG CY S TA LL BL C ET 00 03 07 0 30 30 ME 14 GA Ac PI 90 -1 -0 0. D 50 IN ti RI 46 9- 3- 00 CA 60 EY ve N 28 20 20 0 RE 43 81 88 17 17 NM 9 PH CH MG AR AE MA L CH CY S EW AB LL LE C TA BL ET BRYAN 00 03 06 0 30 7 ME 14 GA Ac BR 90 -1 -3 0. D 50 IN ti IC 46 8- 0- 00 CA 79 EY ve AT 32 20 20 0 RE 90 IN 94 17 17 NM G [address] AR AE US MA L CY S 0. 5% LL C EY E DR PS BRYAN 00 03 06 0 30 7 ME 14 GA Ac BR 90 -1 -1 0. D 42 IN ti IC 46 8- 7- 00 CA 66 EY ve AT 32 20 20 0 RE 58 IN 94 17 17 NM G [address] AR AE US MA L CY S 0. 5% LL C EY E DR PS AC 00 03 06 0 35 15 ME 14 GA Ac ID 90 -0 -1 50 D 41 IN ti 47 4- 6- .0 CA 27 EY ve GO 72 20 20 00 RE 46 NE 71 17 17 NM 4 PH CH AN AR AE TA MA L CI CY S D LI LL QU C ID ST 00 03 06 0 30 30 ME 14 GA Ac OO 53 -1 -0 0. D 33 IN ti L 61 9- 7- 00 CA 82 EY ve SO 06 20 20 0 RE 41 FT 41 17 17 NM EN 0 PH CH ER AR AE MA L 25 CY S 0 MG LL C SO FT GE L LO 00 03 06 0 30 30 ME 14 GA Ac RA 78 -1 -0 0. D 33 IN ti TA 15 9- 7- 00 CA 82 EY ve DI 07 20 20 0 RE 42 NE 70 17 17 NM 1 PH CH 10 AR AE MA L MG CY S TA LL BL C ET RO 00 03 06 0 47 10 ME 14 GA Ac BA 90 -1 -0 30 D 33 IN ti FE 40 9- 5- .0 CA 30 EY ve N 06 20 20 00 RE 41 10 11 17 17 NM 0 6 PH CH MG AR AE /5 MA L CY S ML LL SY C RU P 00 03 06 0 30 30 ME 14 GA Ac PI 90 -1 -0 0. D 31 IN ti RI 46 9- 3- 00 CA 43 EY ve N 28 20 20 0 RE 67 81 88 17 17 NM 9 PH CH MG AR AE MA L CH CY S EW AB LL LE C TA BL ET MA 00 03 06 0 30 5 ME 14 GA Ac PA 90 -1 -0 0. D 31 IN ti P 41 9- 2- 00 CA 57 EY ve 50 98 20 20 0 RE 45 0 86 17 17 NM MG 1 PH CH AR AE TA MA L BL CY S ET LL C MA 00 12 05 0 30 30 ME 14 GA Ac GN 60 -0 -2 0. D 24 IN ti ES 30 3- 4- 00 CA 08 EY ve IU 20 20 20 0 RE 98 M 92 16 17 NM OX 2 PH CH ID AR AE E MA L 40 CY S 0 MG LL C TA BL ET BRYAN 00 03 05 0 50 7 ME 14 GA Ac BR 90 -1 -2 0. D 23 IN ti IC 46 8- 2- 00 CA 59 EY ve AT 32 20 20 0 RE 61 IN 95 17 17 NM G [address] AR AE US MA L CY S 0. 5% LL C EY E DR PS AC 00 03 05 0 35 15 ME 14 GA Ac ID 90 -0 -1 50 D 22 IN ti 47 4- 8- .0 CA 17 EY ve GO 72 20 20 00 RE 35 NE 71 17 17 NM 4 PH CH AN AR AE TA MA L CI CY S D LI LL QU C ID ST 00 03 05 0 30 30 ME 14 GA Ac OO 53 -1 -1 0. D 17 IN ti L 61 9- 0- 00 CA 23 EY ve SO 06 20 20 0 RE 20 FT 41 17 17 NM EN 0 PH CH ER AR AE MA L 25 CY S 0 MG LL C SO FT GE L LO 00 03 05 0 30 30 ME 14 GA Ac RA 78 -1 -1 0. D 17 IN ti TA 15 9- 0- 00 CA 23 EY ve DI 07 20 20 0 RE 21 NE 70 17 17 NM 1 PH CH 10 AR AE MA L MG CY S TA LL BL C ET 00 03 05 0 30 30 ME 14 GA Ac PI 90 -1 -0 0. D 14 IN ti RI 46 9- 5- 00 CA 96 EY ve N 28 20 20 0 RE 45 81 88 17 17 NM 9 PH CH MG AR AE MA L CH CY S EW AB LL LE C TA BL ET BRYAN 00 03 05 0 30 7 ME 14 GA Ac BR 90 -1 -0 0. D 15 IN ti IC 46 8- 5- 00 CA 88 EY ve AT 32 20 20 0 RE 83 IN 94 17 17 NM G [address] AR AE US MA L CY S 0. 5% LL C EY E DR PS MA 00 12 04 0 30 30 ME 14 GA Ac GN 60 -0 -2 0. D 09 IN ti ES 30 3- 6- 00 CA 84 EY ve IU 20 20 20 0 RE 88 M 92 16 17 NM OX 2 PH CH ID AR AE [...] LL C TA BL ET ST 00 08 02 0 30 [...] SO FT GE L LO 00 08 02 0 30 30 ME 13 AR Ac RA 78 -2 -1 0. D 73 NO ti TA 15 2- 3- 00 CA 50 LD ve DI 07 20 20 0 RE 53 NE 70 16 17 RI 1 PH CH 10 AR AR MA D MG CY W TA LL BL C ET 00 08 02 0 30 30 ME [...] AR AR ME MA D CY W MT OT LL EC C T PA ST E RE 53 11 11 0 11 5 ME 13 AR Ac ME 32 -2 -2 30 D 36 NO ti DY 90 8- 8- .0 CA 88 LD ve 16 20 20 00 RE 63 CA 54 16 16 RI LA 4 PH CH ZI AR AR ME MA D CY W MT OT LL EC C T PA ST [...] AR AR ME MA D CY W MT OT LL EC C T PA ST [...] AR AR ME MA D CY W MT OT LL EC C T PA ST [...] AR AR ME MA D CY W MT OT LL EC C T PA ST [...] AR AR ME MA D CY W MT OT LL EC C T PA ST E FI 00 10 10 3 60 30 [...] TA CY W BL ET LL C MT 37 08 10 3 30 30 ME [...] TA CY W BL ET LL C MT 37 08 09 3 30 30 ME [...] D BL CY W ET LL C MT 37 08 08 3 30 30 ME [...] .0 D 84 NO ti RI 42 CA 99 LD ve N 00 20 20 RE 9 32 94 11 11 RI 5 0 PH CH MG AR AR MA D TA CY W BL ET LL C Procedures Procedure DOS Code Location Performer Comment J CARLOS V [id number] [address] MICROFILM CAMERA OPERATOR/URN ASSOCIATE ASSOCIATE MIREILLE CATH S S IND SNF/LAB BHALF SENIOR ACCOUNTING SPECIALIST BLOOD [address] HEMOGLOBI ASSOCIATE ASSOCIATE N S S BLOOD [address] HEMATOCRI ASSOCIATE ASSOCIATE T S S TRAVEL [address] NEC COLOR EXPERT ASSOCIATE SPEC; S S PRORAT ACTL MILE COLOREC G0328 LAURA SANCHEZ MS SCR; 7 [facility] FOB TST INC INC IMMUNO 1-3 SIMULTANE OUS URNLS DIP 33960 [facility] STICK/TAB INC INC LET REAGENT AUTO MICROSCOP Y TRAVEL [address] NEC COLOR EXPERT ASSOCIATE SPEC; S S PRORAT ACTL MILE PRTBLE E0434 MARLYN CLINE LQD O2 7 [employer]ALTHCAR SYS RENT; E E RESRVOR HUMIDFR FLWMTR J CARLOS V G0471 [address] MICROFILM CAMERA OPERATOR/URN ASSOCIATE ASSOCIATE MIREILLE CATH S S IND SNF/LAB BHALF SENIOR ACCOUNTING SPECIALIST BLOOD [address] COMPLETE ASSOCIATE ASSOCIATE AUTO&AUTO S S DIFRNTL WBC O2 CONC 1 E1390 MAR[place]N CLINE [place] [address] [facility] HEALTHCAR 85%/>02 E E CONC AT [facility] [place] SOFT [address] IDAHO ORDONEZ TISSUE 7 MEDICAL NECK W/O IMAGING CONTRAST ASS MATERIAL BLOOD [address] COMPLETE ASSOCIATE ASSOCIATE AUTO&AUTO S S DIFRNTL WBC CT THORAX 38533 IDAHO ORDONEZ W/O 7 MEDICAL CONTRAST IMAGING MATERIAL ASS J CARLOS V G0471 [address] MICROFILM CAMERA OPERATOR/URN ASSOCIATE ASSOCIATE MIREILLE CATH S S IND SNF/LAB BHALF SENIOR ACCOUNTING SPECIALIST TRAVEL [address] NEC COLOR EXPERT ASSOCIATE SPEC; S S PRORAT ACTL MILE HEMOGLOBI [address] HEALTH GLYCOSYLA ASSOCIATE ASSOCIATE COURT A1C S S J CARLOS V G0471 [address] MICROFILM CAMERA OPERATOR/URN ASSOCIATE ASSOCIATE MIREILLE SANCHEZ S S IND SNF/LAB BHALF [place] [address] [facility] THYROID [address] [place] [address] STIMULATI ASSOCIATE ASSOCIATE NG S S HORMONE TSH TRAVEL [address] NEC COLOR EXPERT ASSOCIATE SPEC; S S PRORAT ACTL MILE URNLS DIP 82550 LAURA LEAL [address] [place] [address] LET RGNT P NON-AUTO W/O MICRSCP O2 CONC 1 E1390 [place] [address] HEALTHCAR HEALTHCAR 85%/>02 E E CONC AT PRSC FLW RATE O2 CONC 1 E1390 [facility] [place] [address] HEALTHCAR HEALTHCAR 85%/>02 E E CONC AT PRSC FLW RATE DEBRIDEME [address] SPECIAL SKRIP JR. NT NAIL 7 CARE ANY PODIATRY METHOD OF YAMIL / J CARLOS V G[address] HEALTH MICROFILM CAMERA OPERATOR/URN ASSOCIATE ASSOCIATE MIREILLE SANCHEZ S S IND SNF/LAB BHALF SENIOR ACCOUNTING SPECIALIST LIPID [address] [place] [address] HEALTH HEALTH ASSOCIATE ASSOCIATE S S TRAVEL [address] NEC COLOR EXPERT ASSOCIATE SPEC; S S PRORAT ACTL MILE NONEMERGE A0130 FEDERATED FEDERATED NCY 7 TRANS TRANSPORT TRANSPORT SERVBLUEG ATION: ATION SER TOSHA KAVITHA Dobson VAN SET-UP Q0092 [facility] PORTABLE 7 [facility] X-RAY EQUIPMENT RADIOLOGI 75876 [facility] C 7 [facility] EXAMINATI ON FEMUR MINIMUM 2 VIEWS TRANS R0070 [facility] PRTBL 7 [facility] X-RAY EQP&PERS RICHMOND/NRS RICHMOND-TRIP 1 PT RADIOLOGI 99318 [facility] C 7 [facility] LLC EXAMINATI ON KNEE 1/2 VIEWS RADIOLOGI 10022 [facility] EXAMINATI ON TIBIA & FIBULA 2 VIEWS BLOOD 36839 ARMENIAN ARMENIAN COUNT 7 [facility]ALTH HEALTH COMPLETE ASSOCIATE ASSOCIATE AUTO&AUTO S S DIFRNTL WBC J CARLOS V G0471 ARMENIAN ARMENIAN BLD 7 HEALTH HEALTH MICROFILM CAMERA OPERATOR/URN ASSOCIATE ASSOCIATE SMP CATH S S IND SNF/LAB BHALF SENIOR ACCOUNTING SPECIALIST COMPREHEN 72689 ARMENIAN ARMENIAN SIVE 7 HEALTH HEALTH METABOLIC ASSOCIATE ASSOCIATE PANEL S S TRAVEL 1 P9603 ARMENIAN ARMENIAN [facility] 7 HEALTH HEALTH NEC COLOR EXPERT ASSOCIATE SPEC; S S PRORAT ACTL MILE URNLS DIP 99736 LAURA SANCHEZ 7 [facility] STICK/TAB INC INC LET REAGENT AUTO MICROSCOP Y SET-UP Q0092 [facility] PORTABLE 7 [facility] X-RAY EQUIPMENT TRANS R0070 [facility] PRTBL 7 [facility] LLC X-RAY EQP&PERS RICHMOND/NRS RICHMOND-TRIP 1 PT RADIOLOGI 34046 [facility] C 7 LLC LLC EXAMINATI ON CHEST SINGLE VIEW FRONTAL RADEX 78789 IDAHO ORDONEZ WRIST 7 MEDICAL COMPLETE IMAGING MINIMUM 3 ASS VIEWS O2 CONC 1 E1390 [facility] 7 HEALTHCAR HEALTHCAR 85%/>02 E E CONC AT [facility] FLW RATE RADEX 56452 [facility] WRIST 7 LLC LLC COMPLETE MINIMUM 3 VIEWS RADEX 17943 [facility] FOREARM 2 7 LLC LLC VIEWS TRANS R0070 [facility] PRTBL 7 LLC LLC X-RAY EQP&PERS RICHMOND/NRS RICHMOND-TRIP 1 PT SET-UP Q0092 [facility] PORTABLE 7 [facility] LLC X-RAY EQUIPMENT NONEMERGE A0130 FEDERATED FEDERATED NCY 7 TRANS TRANSPORT TRANSPORT SERVBLUEG ATION: ATION SER TOSHA SOSA A0130 FEDERATED FEDERATED NCY 7 TRANS TRANSPORT TRANSPORT SERVBLUEG ATION: ATION SER TOSHA Dobson VAN TRAVEL [address] HEALTH NEC COLOR EXPERT ASSOCIATE SPEC; S S PRORAT ACTL MILVandana NATRIURET [address] [place] [address] HEALTH HEALTH PEPTIDE ASSOCIATE ASSOCIATE S S J CARLOS V G0471 [facility] BLD [address] [place] [address] HEALTH MICROFILM CAMERA OPERATOR/URN ASSOCIATE ASSOCIATE SMP CATH S S IND SNF/LAB BHALF SENIOR ACCOUNTING SPECIALIST ECG 61874 [facility] ROUTINE 7 PHYSICIAN ECG S GROUP W/LEAST 12 LDS I&R ONLY ECG 69126 LAURA SANCHEZ ROUTINE 7 [facility] ECG INC INC W/LEAST 12 LDS TRCG ONLY W/O I&R NONEMERGE A0130 FEDERATED FEDERATED NCY 7 TRANS TRANSPORT TRANSPORT SERVBLUEG ATION: ATION SER TOSHA RAMIREZ URNLS DIP [address] STICK/TAB ASSOCIATE ASSOCIATE LET S S REAGENT AUTO MICROSCOP Y CULTURE [address] HEALTH ASSOCIATE ASSOCIATE QUANTTATI S S VE COLONY COUNT URINE NONEMERGE A0130 FEDERATED FEDERATED NCY 7 TRANS TRANSPORT TRANSPORT SERVBLUEG ATION: ATION SER TOSHA RAMIREZ O2 CONC 1 E1390 [place] [address] [facility] HEALTHCAR 85%/>02 E E CONC AT [facility] FLW RATE BRNCDILAT 06119 LAURA SANCHEZ RSPSE 7 [facility] SPMTRY INC INC PRE&POST- BRNCDILAT ADMN PRESSURIZ 77199 LAURA SANCHEZ ED/NONPRE 7 [facility] SSURIZED INC INC INHALATIO N TREATMENT NONEMERGE A0130 FEDERATED FEDERATED NCY 7 TRANS TRANSPORT TRANSPORT SERVBLUEG ATION: ATION SER TOSHA RAMIREZ GAS 83032 LAURA SANCHEZ DILUT/WAS 7 [facility] HOUT LUNG INC INC VOL W/WO DISTRIB VENT&[place] [address] LAURA SANCHEZ DIFFUSING 7 [facility] CAPACITY INC INC URNLS DIP 77059 LAURA MEL 7 [facility] STICK/TAB HOSPITAL LET RGNT P NON-AUTO W/O MICRSCP NONEMERGE A0130 FEDERATED FEDERATED NCY 7 TRANS TRANSPORT TRANSPORT SERVBLUEG ATION: ATION SER TOSHA Dobson VAN CULTURE 63332 LAURA SANCHEZ BCT 7 [facility] ISOL&PRSM INC INC PTV ID ISOLATE EA URINE CULTURE 80049 LAURA SANCHEZ BACTERIAL 7 [facility] INC INC QUANTTATI VE COLONY COUNT URINE SUSCEPTIB 18904 LAURA SANCHEZ LTY STDY 7 [facility] ANTIMICRB INC INC IAL MICRO/AGA R DILUTJ O2 CONC 1 E1390 [facility] HEALTHCAR HEALTHCAR 85%/>02 E E CONC AT [facility] FLW RATE RADEX 59398 LAURA SANCHEZ SHOULDER 7 [facility] COMPLETE INC INC MINIMUM 2 VIEWS NONEMERGE A0130 FEDERATED FEDERATED NCY 7 TRANS TRANSPORT TRANSPORT SERVBLUEG ATION: ATION SER TOSHA RAMIREZ FOR DIAB A5512 [facility] ONLY MX 7 MEDICAL MEDICAL DNSITY SUPPLY SUPPLY INSRT DIR [facility] FORMD PRFAB EA DIAB ONLY A5500 [facility] FIT CSTM 7 MEDICAL MEDICAL PREP&SPL SUPPLY SUPPLY SHOE MX [facility] LLC DNSITY INSRT URNLS DIP 33628 LAURA SANCHEZ 7 [facility] STICK/TAB INC INC LET REAGENT AUTO MICROSCOP Y DEBRIDEME 77230 SPECIAL SKRIP JR. NT NAIL 7 CARE ANY PODIATRY METHOD OF YAMIL 6/> NONEMERGE A0130 FEDERATED FEDERATED NCY 7 TRANS TRANSPORT TRANSPORT SERVBLUEG ATION: ATION SER TOSHA RAMIREZ SET-UP Q0092 [facility] PORTABLE 7 [facility] X-RAY EQUIPMENT TRANS R0070 [facility] X-RAY EQP&PERS RICHMOND/NRS RICHMOND-TRIP 1 PT RADEX 45545 [facility] SHOULDER 7 LLC LLC COMPLETE MINIMUM 2 VIEWS RADIOLOGI 80783 [facility] C 7 LLC LLC EXAMINATI ON CHEST SINGLE VIEW FRONTAL TRANS R0070 [facility] PRTBL 7 LLC LLC X-RAY EQP&PERS RICHMOND/NRS RICHMOND-TRIP 1 PT SET-UP Q0092 [facility] PORTABLE 7 LLC LLC X-RAY EQUIPMENT SET-UP Q0092 [facility] PORTABLE 7 LLC LLC X-RAY EQUIPMENT TRANS R0075 [facility] PRTBL 7 LLC LLC XRAY EQP&PERS RICHMOND/NRS RICHMOND-TRIP> 1 PT RADIOLOGI 30668 [facility] C 7 LLC LLC EXAMINATI ON CHEST SINGLE VIEW FRONTAL O2 CONC 1 E1390 [facility] [place] 7 HEALTHCAR HEALTHCAR 85%/>02 E E CONC AT PRSC FLW RATE BLOOD 05067 ARMENIAN ARMENIAN COUNT 7 HEALTH HEALTH COMPLETE ASSOCIATE ASSOCIATE AUTO&AUTO S S DIFRNTL WBC J CARLOS V G0471 ARMENIAN ARMENIAN BLD 7 HEALTH HEALTH MICROFILM CAMERA OPERATOR/URN ASSOCIATE ASSOCIATE SMP CATH S S IND SNF/LAB BHALF SENIOR ACCOUNTING SPECIALIST BASIC 02397 ARMENIAN ARMENIAN METABOLIC 7 HEALTH HEALTH PANEL ASSOCIATE ASSOCIATE CALCIUM S S TOTAL TRAVEL 1 P9603 [facility] 7 HEALTH HEALTH NEC COLOR EXPERT ASSOCIATE SPEC; S S PRORAT ACTL MILE NONEMERGE A0130 FEDERATED FEDERATED NCY 7 TRANS TRANSPORT TRANSPORT SERVBLUEG ATION: ATION SER TOSHA WHEELCHAI R VAN ECG 53620 [facility] MEREDITH ROUTINE 7 PHYSICIAN ECG S GROUP W/LEAST 12 LDS I&R ONLY ECG 02993 LAURA SANCHEZ ROUTINE 7 [facility] ECG INC INC W/LEAST 12 LDS TRCG ONLY W/O I&R O2 CONC 1 E1390 [facility] 7 HEALTHCAR HEALTHCAR 85%/>02 E E CONC AT PRSC FLW RATE AMBULANCE A0428 [facility] SERVICE 7 AMBULANCE AMBULANCE BLS SERVICE SERVICE NONEMERGE NCY TRANSPORT GROUND A0425 [facility] MILEAGE 7 AMBULANCE AMBULANCE PER SERVICE SERVICE STATUTE MILE GROUND A0425 [facility] MILEAGE 7 AMBULANCE AMBULANCE PER SERVICE SERVICE STATUTE MILE AMB A0427 [facility] 7 AMBULANCE AMBULANCE ALS SERVICE SERVICE EMERGENCY TRANSPORT LEVEL 1 ECG 94232 LAURA HOLCOMB ROUTINE 7 [facility] W/LEAST P 12 LDS I&R ONLY RADIOLOGI 69594 IDAHO ORDONEZ C 7 MEDICAL EXAMINATI IMAGING ON CHEST ASS SINGLE VIEW FRONTAL ECG 98289 [facility] ROUTINE 7 HEALTHCAR HEALTHCAR ECG E E W/LEAST [facility] 12 [facility] TRCG ONLY W/O I&R HOSPITAL G0463 [facility] OUTPATIEN 7 HEALTHCAR HEALTHCAR T CLIN E E VISIT [facility] ASSESS & MGMT PT NONEMERGE A0130 FEDERATED FEDERATED NCY 7 TRANS TRANSPORT TRANSPORT SERVBLUEG ATION: ATION SER TOSHA WHEELCHAI R VAN VISUAL 96378 [facility] FIELD XM 7 MEDICAL UNI/BI SERV W/INTERP FOUNDATIO EXTENDED N EXAM DEBRIDEME 97246 SPECIAL RIFrancisco . NT NAIL 7 CARE ANY PODIATRY METHOD OF YAMIL 6/> O2 CONC 1 E1390 [facility]N CLINE [place] 7 HEALTHCAR HEALTHCAR 85%/>02 E E CONC AT PRSC FLW RATE O2 CONC 1 E1390 [facility]N CLINE [place] 6 HEALTHCAR HEALTHCAR 85%/>02 E E CONC AT PRSC FLW RATE POLYSOM 49955 LAURA SANCHEZ 6/>YRS 6 [facility] SLEEP INC INC W/CPAP 4/> ADDL KATARINA ATTND NONEMERG A0120 FEDERATED FEDERATED TRNSPRT: 6 MINI-BUS TRANSPORT TRANSPORT MTN ATION SER [facility] SER AREA/OTH SYS O2 CONC 1 E1390 [facility]N CLINE [place] 6 HEALTHCAR HEALTHCAR 85%/>02 E E CONC AT PRSC FLW RATE J CARLOS V G0471 ARMENIAN ARMENIAN BLD 6 HEALTH HEALTH MICROFILM CAMERA OPERATOR/URN ASSOCIATE ASSOCIATE SMFrancisco CATH S S IND SNF/LAB BHALF SENIOR ACCOUNTING SPECIALIST TRAVEL [address] MED 6 HEALTH HEALTH NEC COLOR EXPERT ASSOCIATE SPEC; S S PRORAT ACTL MILE BASIC 87357 ARMENIAN ARMENIAN METABOLIC 6 HEALTH HEALTH PANEL ASSOCIATE ASSOCIATE CALCIUM S S TOTAL DEBRIDEME 45038 SPECIAL SKRIP JR. NT NAIL 6 CARE SELVIN ANY PODIATRY METHOD OF YAMIL 6/> O2 CONC 1 E1390 [place] [address] HEALTHCAR HEALTHCAR 85%/>02 E E CONC AT PRS FLW RATE ECG 39465 LAURA SANCHEZ ROUTINE 6 [facility] ECG INC INC W/LEAST 12 LDS TRCG ONLY W/O I&R ECG 33271 [facility] ROUTINE 6 PHYSICIAN MAT ECG S GROUP W/LEAST 12 LDS I&R ONLY ECG 86665 LAURA ZARCO JR ROUTINE 6 [facility] W/LEAST P 12 LDS I&R ONLY RADIOLOGI 73501 [facility] C EXAM 6 MEDICAL KIERAN CHEST 2 IMAGING VIEWS ASS FRONTAL&L ATERAL O2 CONC 1 E1390 [place] [address] HEALTHCAR HEALTHCAR 85%/>02 E E CONC AT PRSC FLW RATE RADEX 74374 [facility] ALL SPINE 6 MEDICAL THORACIC IMAGING 2 VIEWS ASS RADEX 78100 [facility] ALL SPINE 6 MEDICAL LUMBOSACR IMAGING AL 2/3 ASS VIEWS RADEX 02526 [facility] ALL SPINE 6 MEDICAL CERVICAL IMAGING 2 OR 3 ASS VIEWS ECG 28267 [facility] PHYSICIAN MAT ECG S GROUP W/LEAST 12 LDS I&R ONLY NONEMERG A0120 FEDERATED FEDERATED TRNSPRT: 6 MINI-BUS TRANSPORT TRANSPORT MTN ATION SER ATION SER AREA/OTH SYS NONEMERG A0120 FEDERATED FEDERATED TRNSPRT: 6 MINI-BUS TRANSPORT TRANSPORT MTN ATION SER ATION SER AREA/OTH SYS ECG 89885 [facility] ROUTINE 6 PHYSICIAN MAT ECG S GROUP W/LEAST 12 LDS I&R ONLY ECG 21647 LAURA HOLCOMB ROUTINE 6 [facility] W/LEAST P 12 LDS I&R ONLY PC C9600 TAWNYA BOWLING TRNSCTH 6 W W PLCMT RX [facility] [place] [facility] MEDICAL MEDICAL STENTS; 1 CHRISTINE CA/[place] PRQ [address] [facility] TRLUML 6 PHYSICIAN MAT CORONARY S GROUP STENT W/ANGIO ONE ART/BRNCH NONEMERG A0120 FEDERATED FEDERATED TRNSPRT: 6 MINI-BUS TRANSPORT TRANSPORT MTN ATION SER ATION SER AREA/OTH SYS ECG 51292 LAURA HOLCOMB ROUTINE 6 [facility] W/LEAST P 12 LDS I&R ONLY RADEX 74117 LAURA SANCHEZ WRIST 6 [facility] COMPLETE INC INC MINIMUM 3 VIEWS NONEMERG A0120 FEDERATED FEDERATED TRNSPRT: 6 MINI-BUS TRANSPORT TRANSPORT MTN ATION SER ATION SER AREA/OTH SYS RADIOLOGI 96423 [facility] ALL C 6 MEDICAL EXAMINATI IMAGING ON CHEST ASS SINGLE VIEW FRONTAL NONEMERG A0120 FEDERATED FEDERATED TRNSPRT: 6 MINI-BUS TRANSPORT TRANSPORT MTN ATION SER ATION SER AREA/OTH SYS NONEMERG A0120 FEDERATED FEDERATED TRNSPRT: 6 MINI-BUS TRANSPORT TRANSPORT MTN ATION SER ATION SER AREA/OTH SYS RADIOLOGI 67744 [facility] ALL C 6 MEDICAL EXAMINATI IMAGING ON [...] TRNSPRT: 6 MINI-BUS TRANSPORT TRANSPORT MTN [facility]ONICA [facility] 17298 [facility] MER[facility] DISCHARGE 6 PHYSICIAN MAT DAY S GROUP MANAGEMEN T 30 MIN/< PC C9600 TAWNYA BOWLING TRNSCTH 6 W W PLCMT RX [facility] [place] MEDICAL MEDICAL STENTS; 1 CHRISTINE CA/BR PRQ 94293 [facility] TRLUML 6 PHYSICIAN MAT CORONARY S GROUP STENT W/ANGIO ONE ART/BRNCH NONEMERG A0120 FEDERATED FEDERATED TRNSPRT: 6 MINI-BUS TRANSPORT TRANSPORT MTN [facility] NONEMERG A0120 FEDERATED FEDERATED TRNSPRT: 6 MINI-BUS TRANSPORT TRANSPORT MTN [facility]ACEY [facility] ECHO 25735 LAURA SANCHEZ TTHRC R-T 6 [facility] 2D INC INC W/WOM-MOD E COMPL SPEC&COLR D NONEMERG A0120 FEDERATED FEDERATED TRNSPRT: 6 MINI-BUS TRANSPORT TRANSPORT MTN ATVERONICA SER MACEY [facility] [place] [address] [place] ALEISHA HEAD/BRAI 6 MEDICAL KIERAN N W/O IMAGING CONTRAST ASS MATERIAL ECG 82728 LAURA AICHA ROUTINE 6 [facility] W/LEAST P 12 LDS I&[place] [address] [place] BEINEKE CERVICAL 6 MEDICAL GILMA SPINE W/O IMAGING CONTRAST ASS MATERIAL RADEX 69914 [facility] [facility] MEDICAL GILMA LUMBOSACR IMAGING AL 2/3 ASS VIEWS RADIOLOGI 73637 [place] ALEISHA C 6 MEDICAL KIERAN EXAMINATI IMAGING ON CHEST ASS SINGLE VIEW FRONTAL RADEX 81913 [place] BEINEKE SPINE 6 MEDICAL [place]IL[place] THORACIC IMAGING 2 VIEWS ASS NONEMERG A0120 FEDERATED FEDERATED TRNSPRT: 6 MINI-BUS TRANSPORT TRANSPORT MTN ATVERONICA SER MACEY [facility]/OT SYS NONEMERG A0120 FEDERATED FEDERATED TRNSPRT: 6 MINI-BUS TRANSPORT TRANSPORT [facility] RADIOLOGI 11623 [place] ORDONEZ ALL C 6 MEDICAL EXAMINATI IMAGING ON CHEST ASS SINGLE VIEW FRONTAL ECG 58116 CARDIOVAS MEREDITH ROUTINE 6 CULAR MAT ECG CONSULTAN W/LEAST TS O 12 LDS I&R ONLY NONEMERG A0120 FEDERATED FEDERATED TRNSPRT: 6 MINI-BUS TRANSPORT TRANSPORT [facility] RADIOLOGI 91870 [place] ORDONEZ ALL C 6 MEDICAL EXAMINATI IMAGING ON CHEST ASS SINGLE VIEW FRONTAL NONEMERG A0120 FEDERATED FEDERATED TRNSPRT: 6 MINI-BUS TRANSPORT TRANSPORT [facility] NONEMER A0120 FEDERATED FEDERATED TRNSPRT: 5 MINI-BUS TRANSPORT TRANSPORT [facility] 07979 [facility] 5 JEANIE JEANIE DAY MANAGEMEN T 30 MIN/< SBSQ 55378 [facility] 5 JEANIE JEANIE CARE/DAY 25 MINUTES SBSQ 12257 [facility] 5 JEANIE JEANIE CARE/DAY 25 MINUTES SBSQ 83050 [facility] 5 JEANIE JEANIE CARE/DAY 25 MINUTES SBSQ 43764 [facility] 5 JENAIE JEANIE CARE/DAY 25 MINUTES SBSQ 19081 [facility] 5 JEANIE JEANIE CARE/DAY 25 MINUTES SBSQ 67303 [facility] 5 JEANIE JEANIE CARE/DAY [address] THORAX 56406 [place] [facility] 5 MEDICAL GILMA W/CONTRAS IMAGING T ASS MATERIAL RADIOLOGI 09850 [place] [facility] 5 MEDICAL GILMA EXAMINATI IMAGING ON CHEST ASS SINGLE VIEW FRONTAL INITIAL 92978 [facility] 5 JEANIE JEANIE CARE/DAY 50 MINUTES RADEX 11580 [place] MERY ALL FINGR 5 MEDICAL MINIMUM 2 IMAGING VIEWS ASS URNLS DIP 24735 LAURA SANHCEZ 5 [facility] STICK/TAB INC INC LET REAGENT AUTO MICROSCOP Y NONEMERG A0120 FEDERATED FEDERATED TRNSPRT: 5 MINI-BUS TRANSPORT [facility]SPORT [facility] NONEMERG A0120 FEDERATED FEDERATED TRNSPRT: 5 MINI-BUS TRANSPORT TRANSPORT [facility] 32205 LAURA SANCHEZ ROUTINE 5 [facility] ECG INC INC W/LEAST 12 LDS TRCG ONLY W/O I&R ECG 96955 CARDIOVAS MEREDITH ROUTINE 5 CULAR MAT ECG CONSULTAN W/LEAST TS O 12 LDS I&R ONLY NONEMERG A0120 FEDERATED FEDERATED TRNSPRT: 5 MINI-BUS TRANSPORT TRANSPORT MTN [facility] NONEMERG A0120 FEDERATED FEDERATED TRNSPRT: 5 MINI-BUS TRANSPORT TRANSPORT [facility] CONTINUOU [id number] [facility] S 5 POSITIVE AIRWAY PRESSURE DEVICE NONEMERG A0120 FEDERATED FEDERATED TRNSPRT: 5 MINI-BUS TRANSPORT TRANSPORT [facility] R & L HRT 44721 CARDIOVAS MEREDITH CATH 5 CULAR MAT WINJX HRT CONSULTAN ART& L TS O VENTR IMG RADIOLOGI 60104 IDAHO ALEISHA C 5 MEDICAL KIERAN EXAMINATI IMAGING [place] [address] IDAHO ALEISHA ABDOMEN & 5 MEDICAL KIERAN PELVIS IMAGING W/O ASS CONTRAST MATERIAL RADIOLOGI 20389 IDAHO ALEISHA C 5 MEDICAL KIERAN EXAMINATI IMAGING ON PELVIS ASS 1/2 VIEWS RADIOLOGI 50566 IDAHO ALEISHA C 5 MEDICAL KIERAN EXAMINATI IMAGING [place] [address] IDAHO ALEISHA THORACIC 5 MEDICAL KIERAN SPINE W/[place] [address] IDAHO ALEISHA CERVICAL 5 MEDICAL KIERAN SPINE W/O IMAGING CONTRAST ASS MATERIAL NONEMERG A0120 FEDERATED FEDERATED TRNSPRT: 5 MINI-BUS TRANSPORT TRANSPORT MTN ATION SER ATION SER AREA/OTH SYS RADIOLOGI 88238 IDAHO BEINE C EXAM 5 MEDICAL GILMA CHEST 2 IMAGING VIEWS ASS FRONTAL&L ATERAL ECHO 26204 LAURA SANCHEZ TTHRC R-T 5 [facility] INC INC W/WOM-MOD E COMPL SPEC&COLR D [...] MTN ATION SER ATION SER AREA/OTH SYS NONEMERGE A0100 FEDERATED FEDERATED NCY 5 TRANSPORT TRANSPORT TRANSPORT ATION; ATION SER ATION SER TAXI RADEX 12885 IDAHO ALEISHA RIBS UNI 5 MEDICAL KIERAN W/POSTERO IMAGING [...] FEDERATED TRNSPRT: 4 TRANS MINI-BUS TRANSPORT SERVBLUEG [facility] SER TOSHA AREA/OTH SYS NONEMERG A0120 FEDERATED FEDERATED TRNSPRT: 4 TRANS MINI-BUS TRANSPORT SERVBLUEG [facility] SER TOSHA AREA/[place] [address] [facility] ABDOMEN & 4 MEDICAL GILMA PELVIS IMAGING W/CONTRAS ASS T MATERIAL NONEMERG A0120 FEDERATED FEDERATED TRNSPRT: 4 TRANS MINI-BUS TRANSPORT SERVBLUEG [facility] SER [place]OS[place] AREA/OTH SYS NONEMERG A0120 FEDERATED FEDERATED TRNSPRT: 4 TRANS MINI-BUS TRANSPORT SERVBLUEG [facility] SER [place] AREA/OTH SYS XTRNL 94297 [place] ONDINA OCULAR 4 MEDICAL SHA PHOTOG SERV W/I&R FOUNDATIO DOCMT N MEDICAL PROGRE O2 CONC 1 E1390 ARONADRIANNE KNIGHTRELL DEL PORT 4 HOME HOME 85%/>02 MEDICAL MEDICAL CONC AT EQUIPME EQUIPME PRSC FLW RATE SPMTRY 40727 LAURA SANCHEZ W/VC 4 [facility] EXPIRATOR INC INC Y MARYLOU W/WO MXML VOL VNTJ NONEMERG A0120 FEDERATED FEDERATED TRNSPRT: 4 TRANS [facility]-BUS TRANSPORT [facility]BLUEG [facility] SER [place] AREA/OTH SYS O2 CONC 1 E1390 ARON KNIGHTRELL DEL PORT 4 HOME HOME 85%/>02 MEDICAL MEDICAL CONC AT EQUIPME EQUIPME PRSC FLW RATE NONEMERG A0120 FEDERATED FEDERATED TRNSPRT: 4 TRANS MINI-BUS TRANSPORT [facility]BLUEG [facility] SER [place] AREA/OTH SYS O2 CONC 1 E1390 ARON ARON DEL PORT 4 HOME HOME 85%/>02 MEDICAL MEDICAL CONC AT EQUIPME EQUIPME PRSC FLW RATE NONEMERG A0120 FEDERATED FEDERATED TRNSPRT: 4 TRANS MINI-BUS TRANSPORT [facility] SER [place] AREA/OTH SYS NONEMERG A0120 FEDERATED FEDERATED TRNSPRT: 4 TRANS MINI-BUS TRANSPORT [facility]BLUEG [facility] SER [place] AREA/OTH SYS O2 CONC 1 E1390 ARON KNIGHTRELL DEL PORT 4 HOME HOME 85%/>02 MEDICAL MEDICAL CONC AT EQUIPME EQUIPME PRS FLW RATE SAVAGE 39131 LAURA MATHIS JR POST-VOID 4 [facility] RESIDUAL P URINE&/BL ADDER CAP NONEMERG A0120 FEDERATED FEDERATED TRNSPRT: 4 TRANS MINI-BUS TRANSPORT SERVBLUEG MTN ATION SER TOSHA AREA/OTH SYS NONEMERG A0120 FEDERATED FEDERATED TRNSPRT: 4 TRANS MINI-BUS TRANSPORT SERVBLUEG MTN ATION SER TOSHA AREA/OTH SYS NONEMERG A0120 FEDERATED FEDERATED TRNSPRT: 4 MINI-BUS TRANSPORT TRANSPORT MTN ATION SER ATION SER AREA/OTH SYS O2 CONC 1 E1390 ARON KNIGHTRELL DEL PORT 4 HOME HOME 85%/>02 MEDICAL MEDICAL CONC AT EQUIPME EQUIPME PRS FLW RATE NONEMERG A0120 FEDERATED FEDERATED TRNSPRT: 4 MINI-BUS TRANSPORT TRANSPORT MTN ATION SER ATION SER AREA/OTH SYS NONEMERG A0120 FEDERATED FEDERATED TRNSPRT: 4 MINI-BUS TRANSPORT TRANSPORT MTN ATION SER ATION SER AREA/OTH SYS SAVAGE 37173 LAURA MATHIS JR POST-VOID 4 [facility] RESIDUAL P URINE&/BL ADDER CAP O2 CONC 1 E1390 ARON KNIGHTRELL DEL PORT 4 HOME HOME 85%/>02 MEDICAL MEDICAL CONC AT EQUIPME EQUIPME PRS FLW RATE NONEMERG A0120 FEDERATED FEDERATED TRNSPRT: 4 MINI-BUS TRANSPORT TRANSPORT MTN ATION SER ATION SER AREA/OTH SYS NONEMERG A0120 FEDERATED FEDERATED TRNSPRT: 4 MINI-BUS TRANSPORT TRANSPORT MTN ATION SER ATION SER AREA/OTH SYS SAVAGE 46582 LAURA MATHIS JR POST-VOID 4 [facility] RESIDUAL P URINE&/BL ADDER CAP O2 CONC 1 E1390 ARON ARON DEL PORT 4 HOME HOME 85%/>02 MEDICAL MEDICAL CONC AT EQUIPME EQUIPME PRS FLW RATE NONEMERG A0120 FEDERATED FEDERATED TRNSPRT: 4 MINI-BUS TRANSPORT TRANSPORT MTN ATION SER ATION SER AREA/OTH SYS NONEMERG A0120 FEDERATED FEDERATED TRNSPRT: 4 MINI-BUS TRANSPORT TRANSPORT MTN ATION SER ATION SER AREA/OTH SYS 3D 04272 IDAHO ALEISHA RENDERING 4 MEDICAL KIERAN IMAGING W/INTERP& [place] [address] LAURA SANCHEZ MAXILLOFA 4 [facility] CIAL W/O INC INC CONTRAST MATERIAL NONEMERG A0120 FEDERATED FEDERATED TRNSPRT: 4 MINI-BUS TRANSPORT TRANSPORT MTN ATION SER ATION SER AREA/OTH SYS O2 CONC 1 E1390 ARONADRIANNE KNIGHTRELL DEL PORT 4 HOME HOME 85%/>02 MEDICAL MEDICAL CONC AT EQUIPME EQUIPME PRSC FLW RATE NONEMERG A0120 FEDERATED FEDERATED TRNSPRT: 4 MINI-BUS TRANSPORT TRANSPORT MTN ATION SER ATION SER AREA/OTH SYS NONEMERG A0120 FEDERATED FEDERATED TRNSPRT: 4 MINI-BUS TRANSPORT TRANSPORT MTN ATION SER ATION SER AREA/OTH SYS RADIOLOGI 97263 LAURA SANCHEZ C EXAM 4 [facility] KNEE INC INC COMPLETE 4/MORE VIEWS RADEX 35266 LAURA SANCHEZ WRIST 4 [facility] COMPLETE INC INC MINIMUM 3 VIEWS O2 CONC 1 E1390 ARON SHARP [...] AREA/OTH SYS O2 CONC 1 E1390 ARON SHARP DEL PORT 3 HOME HOME 85%/>02 MEDICAL MEDICAL CONC AT EQUIPME EQUIPME [facility] FLW RATE NEUROPLAS 24404 LAURA SANCHEZ TY 3 [facility] &/TRANSPO INC INC S MEDIAN NRV CARPAL TUNNE PRESSURIZ 47525 LAURA SANCHEZ ED/NONPRE 3 [facility] SSURIZED [place] [address] LAURA SANCHEZ INFUSION 3 [facility] THERAPY/P INC INC ROPHYLAXI S /DX 1ST TO 1 HR THERAPEUT 78732 LAURA SANCHEZ IC 3 [facility] INJECTION [place] [address] LAURA SANCHEZ INFUSION 3 [facility] MEM [...] AREA/OTH SYS O2 CONC 1 E1390 ARON SHARP DEL PORT 3 HOME HOME 85%/>02 MEDICAL MEDICAL CONC [facility] [address] LAURA SANCHEZ INFUSION 3 [facility] THERAPY/P INC INC ROPHYLAXI S /DX 1ST TO 1 HR THERAPEUT 44919 LAURA SANCHEZ IC 3 [facility] INJECTION INC INC IV PUSH EACH NEW DRUG NEUROPLAS 67254 LAURA SANCHEZ TY 3 [facility] &/TRANSPO INC [place] [address] LAURA SANCHEZ INFUSION 3 [facility] THERAPY INC INC PROPHYLAX IS/DX EA HOUR BASIC 45761 LAURA LAURA METABOLIC 3 [facility] PANEL INC INC CALCIUM TOTAL ECG 65576 LAURA SANCHEZ ROUTINE 3 [facility] ECG INC INC W/LEAST 12 LDS TRCG ONLY W/O I&R COLLECTIO 16326 LAURA SANCHEZ N VENOUS 3 [facility] BLOOD INC INC VENIPUNCT URE RADIOLOGI 40933 NICKI MORAES C EXAM 3 MEDICAL KIERAN CHEST 2 IMAGING VIEWS ASS FRONTAL&L ATERAL BLOOD 99229 LAURA SANCHEZ COUNT 3 [facility] COMPLETE INC INC AUTO&AUTO DIFRNTL WBC ECG 93342 LAURA HOLCOMB ROUTINE 3 [facility] W/LEAST P 12 LDS I&R ONLY NONEMERG A0120 LKLP CAC LKLP CAC TRNSPRT: 3 INC INC MINI-BUS REGION 11 REGION 11 MTN AREA/OTH SYS NONEMERG A0120 LKLP CAC LKLP CAC TRNSPRT: 3 INC INC MINI-BUS REGION 11 REGION 11 MTN AREA/OTH SYS DETERMINA 01960 ELENI KNOWLES TION 3 JAM JAM REFRACTIV E STATE OPHTHALMO 71903 ELENI KNOWLES SCPY 3 JAM JAM EXTENDED RETINAL DRAWING I&R 1ST NONEMERG A0120 LKLP CAC LKLP CAC TRNSPRT: 3 INC INC MINI-BUS REGION 11 REGION 11 MTN AREA/OTH SYS O2 CONC 1 E1390 ARON ARON DEL PORT 3 HOME HOME 85%/>02 MEDICAL MEDICAL CONC AT EQUIPME EQUIPME PRSC FLW RATE NEEDLE 60367 TENRIISM VINH EMG EA 3 [facility] W/PARASPI [place] AREA COMPLETE NONEMERG A0120 LKLP CAC LKLP CAC TRNSPRT: 3 INC INC MINI-BUS REGION 11 REGION 11 MTN AREA/OTH SYS NERVE 48338 TENRIISM VINH CONDUCTIO 3 [facility] 13/> [facility] [facility] TRIMMING 23231 BRAUDIS BRAUDIS NONDYSTRO 3 JAM JAM PHIC NAILS ANY NUMBER O2 CONC 1 E1390 ARON ARON DEL PORT 3 HOME HOME 85%/>02 MEDICAL MEDICAL CONC AT EQUIPME EQUIPME [facility] FLW RATE MRI 85656 NICKI MORAES SPINAL 3 MEDICAL KIERAN CANAL IMAGING CERVICAL ASS W/O CONTRAST MATRL GLUC BLD 37972 LAURA SANCHEZ GLUC MNTR 3 [facility] DEV INC INC [place] [address] CHIPPS SUAD ARMANDO SURG 3 SUNITHA & PATHOLOGY DUBILIER GROSS&ARMANDO ROSCOPIC EXAM SPCL STN 76827 CHIPPS SUAD ARMANDO 2 I&R 3 SUNITHA & EXCPT MAGDALENA MICROORG/ ENZYME/IM CYT EGD 68342 LAURA SANCHEZ TRANSORAL 3 [facility] BIOPSY INC INC SINGLE/[place] [address] LAURA SANCHEZ INFUSION 3 [facility] THERAPY INC INC PROPHYLAX IS/DX EA HOUR NONEMERG A0120 LKLP CAC LKLP CAC TRNSPRT: 3 INC INC MINI-BUS REGION 11 REGION 11 MTN AREA/OTH SYS EXCISION 06263 MARKIE LOZADA THO NAIL 3 [facility] REMOVAL NONEMERG A0120 LKLP LKLP TRNSPRT: 3 [facility] ACTION MTN AREA/OTH SYS O2 CONC 1 E1390 ARON MOSES 3 HOME HOME 85%/>02 MEDICAL MEDICAL CONC AT EQUIPME [facility] FLW RATE CREATINE 72085 LAURA SANCHEZ KINASE MB 3 [facility] FRACTION INC INC ONLY CREATINE 63751 LAURA SANCHEZ KINASE 3 [facility] [place] [address] LAURA SANCHEZ TROPONIN 3 [facility] QUANTITAT INC INC ANGY RADIOLOGI 48600 LAURA SANCHEZ C EXAM 3 [facility] CHEST 2 INC INC VIEWS FRONTAL&L ATERAL BLOOD 34018 LAURA SANCHEZ COUNT 3 [facility] COMPLETE INC INC AUTO&AUTO DIFRNTL WBC COMPREHEN 15827 LAURA SANCHEZ SIVE 3 [facility] METABOLIC INC INC PANEL AMB A0427 [facility] SERVICE 3 AMBULANCE AMBULANCE ALS SERVICE SERVICE EMERGENCY TRANSPORT LEVEL 1 GROUND A0425 [facility] MILEAGE 3 AMBULANCE AMBULANCE PER SERVICE SERVICE STATUTE MILE ECG 77044 LAURA LAURA ROUTINE 3 [facility] ECG INC INC W/LEAST 12 LDS TRCG ONLY W/O I&R ECG 28608 LAURA ZARCO JR ROUTINE 3 [facility] W/LEAST P 12 LDS I&R ONLY NONCOVERE A9270 [facility] D ITEM OR 3 HOSPITAL HOSPITAL SERVICE O2 CONC 1 E1390 ARON SHARP DEL PORT 3 HOME HOME 85%/>02 MEDICAL MEDICAL CONC AT EQUIPME EQUIPME [facility] FLW RATE DEBRIDEME 09311 RAMÍREZ ELMORE NT NAIL 3 JAM JAM ANY METHOD 1-5 TRIMMING 96188 RAMÍREZ ELMORE NONDYSTRO 3 JAM JAM PHIC NAILS ANY NUMBER O2 CONC 1 E1390 ARON SHARP DEL PORT 3 HOME HOME 85%/>02 MEDICAL MEDICAL CONC AT EQUIPME EQUIPME [facility] FLW RATE PROSTATE G0103 COMBINED COMBINED CANCER 3 PHYSICIAN PHYSICIAN SCREENING S LA S LA ; PSA TEST URNLS DIP 43355 COMBINED COMBINED 3 PHYSICIAN PHYSICIAN STICK/TAB S LA S LA LET REAGENT AUTO MICROSCOP Y RADEX 36284 EXPRESS EXPRESS ELBOW 3 MOBILE MOBILE COMPLETE DIAGNOSTI DIAGNOSTI MINIMUM 3 C SE C SE VIEWS RADEX 36481 EXPRESS EXPRESS SHOULDER 3 MOBILE MOBILE COMPLETE DIAGNOSTI DIAGNOSTI MINIMUM 2 C SE C SE VIEWS RADEX 17532 EXPRESS EXPRESS HUMERUS 3 MOBILE MOBILE MINIMUM 2 DIAGNOSTI DIAGNOSTI VIEWS C SE C SE O2 CONC 1 E1390 ARON KNIGHTRELL DEL PORT 3 HOME HOME 85%/>02 MEDICAL MEDICAL CONC AT EQUIPME EQUIPME [facility] FLW RATE O2 CONC 1 E1390 ARON ARON DEL PORT 3 HOME HOME 85%/>02 MEDICAL MEDICAL CONC AT EQUIPME EQUIPME [facility] FLW RATE PARING/CU 80883 RAMÍREZ ELMORE TTING 3 JAM JAM BENIGN HYPERKERA TOTIC LESION >4 DEBRIDEME 67585 RAMÍREZ ELMORE NT NAIL 3 JAM JAM ANY METHOD 1-5 TRIMMING 87210 RAMÍREZ ELMORE NONDYSTRO 3 JAM JAM PHIC NAILS ANY NUMBER O2 CONC 1 E1390 ARON SHARP DEL PORT 3 HOME HOME 85%/>02 MEDICAL MEDICAL CONC AT EQUIPME EQUIPME PRSC FLW RATE NONEMERG A0120 LKLP LKLP TRNSPRT: 3 COMMUNITY COMM[facility]ITY [facility] ACTION ACTION MTN AREA/[place] [address] LAURA SANCHEZ INFUSION 3 [facility] THERAPY INC INC PROPHYLAX IS/DX EA HOUR COLONOSCO 51086 LAURA SANCHEZ PY FLX DX 3 [facility] W/[place] [address] LAURA SANCHEZ INFUSION 3 [facility] THERAPY/P INC INC ROPHYLAXI S /DX 1ST TO 1 HR O2 CONC 1 E1390 ARON SHARP DEL PORT 2 HOME HOME 85%/>02 MEDICAL MEDICAL CONC AT EQUIPME EQUIPME PRSC FLW RATE O2 CONC 1 E1390 ARON SHARP DEL PORT 2 HOME HOME 85%/>02 MEDICAL MEDICAL CONC AT EQUIPME EQUIPME PRSC FLW RATE LIPID 42902 COMBINED COMBINED PANEL 2 [place] [address] COMBINED COMBINED THYROID 2 PHYSICIAN PHYSICIAN STIMULATI S LA S LA NG HORMONE TSH PROSTATE G0103 COMBINED COMBINED CANCER 2 PHYSICIAN PHYSICIAN SCREENING S LA S LA ; PSA TEST COLLECTIO 26245 COMBINED COMBINED N VENOUS 2 PHYSICIAN PHYSICIAN BLOOD S LA S LA VENIPUNCT URE COMPREHEN 11791 COMBINED COMBINED SIVE 2 PHYSICIAN PHYSICIAN METABOLIC S LA S LA PANEL O2 CONC 1 E1390 ARON SHARP DEL PORT 2 HOME HOME 85%/>02 MEDICAL MEDICAL CONC AT EQUIPME EQUIPME PRSC FLW RATE ECG 52342 LAURA SANCHEZ ROUTINE 2 [facility] ECG INC INC W/LEAST 12 LDS TRCG ONLY W/O I&R RADIOLOGI 66089 LAURA SANCHEZ C 2 [facility] EXAMINATI INC INC ON CHEST SINGLE VIEW FRONTAL ECG 68998 HAROLDO ZARCO JR ROUTINE 2 DWI DWI ECG W/LEAST 12 LDS I&R ONLY SAVAGE 15546 DEL MATHIS JR POST-VOID 2 MARCY MARCY ING RESIDUAL URINE&/BL ADDER CAP NONEMERG A0120 LKLP LKLP TRNSPRT: 2 [facility] ACTION ACTION MTN AREA/OTH SYS BASIC 16085 LAURA SANCHEZ METABOLIC 2 [facility] PANEL INC INC CALCIUM TOTAL 3D 81554 LAURA SANCHEZ RENDERING 2 [facility] INC INC W/INTERP& [place] [address] LAURA SANCHEZ ABDOMEN & 2 [facility] PELVIS INC INC W/O CONTRAST MATERIAL BLOOD 82317 LAURA SANCHEZ COUNT 2 [facility] COMPLETE INC INC AUTO&AUTO DIFRNTL WBC INSJ TEMP 54125 LAURA SANCHEZ NDWELLG 2 [facility] BL[place]DER [place] [address] LAURA SANCHEZ THYROID 2 [facility] STIMULATI INC INC NG HORMONE TSH URNLS DIP 41313 LAURA SANCHEZ 2 [facility] STICK/TAB INC [place] [address] LAURA SANCHEZ INFUSION 2 [facility] HYDRATION INC INC INITIAL 31 MIN-1 HOUR RADIOLOGI 72539 NICKI ROCKCHER C 2 MEDICAL KIERAN EXAMINATI IMAGING ON CHEST ASS SINGLE VIEW FRONTAL ECG 40335 RAND GORDILLO ROUTINE 2 III MARCY III MARCY ECG W/LEAST 12 LDS I&R ONLY O2 CONC 1 E1390 ARON ARON DEL PORT 2 HOME HOME 85%/>02 MEDICAL MEDICAL CONC AT EQUIPME EQUIPME PRS FLW RATE TRIMMING 08475 BRAUDIS BRAUDIS NONDYSTRO 2 JAM JAM PHIC NAILS ANY NUMBER O2 CONC 1 E1390 ARON ARON DEL PORT 2 HOME HOME 85%/>02 MEDICAL MEDICAL CONC AT EQUIPME EQUIPME PRS FLW RATE CT SOFT 66975 NICKI ROCKCHER TISSUE 2 MEDICAL KIERAN NECK W/O IMAGING CONTRAST ASS MATERIAL BLOOD 02323 LAURA SANCHEZ COUNT 2 [facility] COMPLETE INC INC AUTO&AUTO DIFRNTL WBC CT SOFT 75926 LAURA SANCHEZ TISSUE 2 [facility] NECK INC INC W/CONTRAS T MATERIAL 3D 63199 LAURA SANCHEZ RENDERING 2 [facility] INC INC W/INTERP& POSTPROC DIFF WORK STATION BASIC 11361 LAURA SANCHEZ METABOLIC 2 [facility] PANEL INC INC CALCIUM TOTAL LOCM Q9967 LAURA SANCHEZ 300-399 2 [facility] MG/ML INC INC IODINE CONCENTRA TION PER ML O2 CONC 1 E1390 ARON FRAZIER PORT 2 HOME HOME 85%/>02 MEDICAL MEDICAL CONC AT EQUIPME EQUIPME PRSC FLW RATE O2 CONC 1 E1390 ARON FRAZIER PORT 2 HOME HOME 85%/>02 [...] DEVICE NONEMERG A0120 LKLP LKLP TRNSPRT: 2 COMMUNITY COMMUNITY [facility] ACTION ACTION MTN AREA/OTH SYS ECG 45018 ZEKE QUOC ZEKE BAR ROUTINE 2 ECG W/LEAST 12 LDS I&R ONLY ECG 89471 HEEB CHR HEEB CHR ROUTINE 2 ECG W/LEAST 12 LDS I&R ONLY ECG 45356 HEEB CHR HEEB CHR ROUTINE 2 ECG W/LEAST 12 LDS I&R ONLY RADIOLOGI 15562 RADIOLOGY NEILS JONATHAN C 2 EXAMINATI ASSOCIATE ON CHEST S OF NOT SINGLE VIEW FRONTAL ECG 78838 HEEB CHR HEEB CHR ROUTINE 2 ECG W/LEAST 12 LDS I&R ONLY O2 CONC 1 E1390 ARON SHARP DEL PORT 2 HOME HOME 85%/>02 MEDICAL MEDICAL CONC AT EQUIPME EQUIPME PRSC FLW RATE CONTINUOU E0601 ARONADRIANNE SHARP S 2 HOME HOME POSITIVE MEDICAL MEDICAL AIRWAY EQUIPME EQUIPME PRESSURE DEVICE O2 CONC 1 E1390 ARON SHARP DEL PORT 1 HOME HOME 85%/>02 MEDICAL MEDICAL CONC AT EQUIPME EQUIPME PRSC FLW RATE NASL A7034 ARON ARON INTRFCE 1 HOME HOME POS ARWAY MEDICAL MEDICAL PRSS EQUIPME EQUIPME DEVC W/WO HEAD STRAP HEADGEAR A7035 ARON KNIGHTRELL USED 1 HOME HOME W/POSITIV MEDICAL MEDICAL E AIRWAY EQUIPME EQUIPME PRESSURE DEVICE CONTINUOU E0601 ARONADRIANNE SHARP S 1 HOME HOME POSITIVE MEDICAL MEDICAL AIRWAY EQUIPME EQUIPME PRESSURE DEVICE FILTER A7038 ARON ARON DISPBL 1 HOME HOME USED MEDICAL MEDICAL W/POS EQUIPME EQUIPME ARWAY PRESSURE DEVICE FILTER A7039 ARON ARON NON 1 HOME HOME DISPBL MEDICAL MEDICAL USED EQUIPME EQUIPME W/POS ARWAY PRESS DEVICE HUMDIFIR E0562 ARONADRIANNE SHARP HEATED 1 HOME HOME USED MEDICAL MEDICAL W/POS EQUIPME EQUIPME ARWAY PRESSURE DEVICE TUBING A7037 ARON ARON USED WITH 1 HOME HOME POSITIVE MEDICAL MEDICAL AIRWAY EQUIPME EQUIPME PRESSURE DEVICE POLYSOM 46955 LEON QUINTERO 6/>YRS 1 ERNST ERNST SLEEP W/CPAP 4/> ADDL KATARINA ATTND POLYSOM 68165 LAURA SANCHEZ 6/>YRS 1 [facility] SLEEP INC INC W/CPAP 4/> ADDL KATARINA ATTND URNLS DIP 81590 LAURA SANCHEZ 1 [facility] STICK/TAB INC INC LET REAGENT AUTO MICROSCOP Y 3D 44427 [place] ALEISHA RENDERING 1 MEDICAL KIER[facility] IMAGING W/INTERP& ASS POSTPROC DIFF WORK STATION CULTURE 86196 LAURA SANCHEZ BACTERIAL 1 [facility] INC INC QUANTTATI VE COLONY COUNT URINE BLOOD 68096 LAURA SANCHEZ COUNT 1 [facility] COMPLETE INC INC AUTO&AUTO DIFRNTL WBC INSJ TEMP 40663 LAURA SANCHEZ NDWELLG 1 [facility] [place] [address] NICKI MORAES ABDOMEN & 1 MEDICAL KIERAN PELVIS IMAGING W/O ASS CONTRAST MATERIAL COLLECTIO 89327 LAURA SANCHEZ N VENOUS 1 [facility] BLOOD INC INC VENIPUNCT URE COMPREHEN 71544 LAURA LAURA SIVE 1 [facility] METABOLIC INC INC PANEL CV STRS 12956 AICHA HOLCOMB TST 1 JEANIE JEANIE XERS&/OR RX CONT ECG I&R ONLY TECHNETIU A9502 LAURA Ornelas TC-99M 1 [facility] TETROFOSM INC INC IN DX PER STUDY DOSE MYOCARDIA 00211 FALLUJI FALLUJI L SPECT 1 TATUM TATUM MULTIPLE STUDIES CV STRS 59493 AICHA HOLCOMB TST 1 JEANIE JEANIE XERS&/OR RX CONT ECG W/O I&R CV STRS 27861 LAURA SANCHEZ TST 1 [facility] XERS&/OR INC INC RX CONT ECG TRCG ONLY INJECTION J2785 LAURAJESSIKA TRIPPON 1 [facility] REGADENOS INC INC ON 0.1 MG INITIAL 60539 AICHA HOLCOMB OBSERVATI 1 JEANIE JEANIE ON CARE/DAY 30 MINUTES ECG 46924 PUND CHR PUND CHR ROUTINE 1 ECG W/LEAST 12 LDS I&R ONLY RADIOLOGI 12974 NICKI MORAES C EXAM 1 MEDICAL KIERAN CHEST 2 IMAGING VIEWS ASS FRONTAL&L ATERAL ECHO 29182 FALLUJI FALLUJI TTHRC R-T 1 TATUM TATUM 2D W/WOM-MOD E COMPL SPEC&COLR D POLYSOM 55214 LEON QUINTERO 6/>YRS 1 ERNST ERNST SLEEP 4/> ADDL KATARINA ATTND NONEMERG A0120 LKLP LK TRNSPRT: 1 [facility] ACTION N [facility] AREA/OTH SYS POLYSOM 10590 LAURA SANCHEZ 6/>YRS 1 [facility] SLEEP 4/> INC INC ADDL KATARINA ATTND SPMTRY 94430 LAURA SANCHEZ W/VC 1 [facility] EXPIRATOR INC INC Y MARYLOU W/WO MXML VOL VNTJ NONINVASI 87872 LAURA SANCHEZ VE 1 [facility] EAR/PULSE INC [place] [address] LAURA SANCHEZ THYROID 1 [facility] STIMULATI INC INC NG HORMONE TSH COLLECTIO 77977 LAURA SANCHEZ N VENOUS 1 [facility] BLOOD INC INC VENIPUNCT URE [facility] 41916 LAURA SANCHEZ ANALYSIS 1 [facility] ADDL HIGH INC INC RESOLUTIO N [facility] [address] LAURA SANCHEZ COUNT 1 [facility] 15-20 CLL INC INC 2KARYOTYP BANDING BLOOD 66881 LAURA SANCHEZ COUNT 1 [facility] COMPLETE INC INC AUTO&AUTO DIFRNTL WBC NONEMERG A0120 LKLP LKLP TRNSPRT: 1 [facility] N [facility] AREA/OTH SYS COMPREHEN 26729 LAURA SANCHEZ SIVE 1 [facility] METABOLIC INC INC PANEL COMPREHEN 54380 COMBINED COMBINED SIVE 1 PHYSICIAN PHYSICIAN METABOLIC S LA S LA PANEL TRAVEL [address] MED 1 PHYSICIAN PHYSICIAN NEC LAB S LA S LA SPEC; PRORATD TRIP CHRG COLLECTIO 01293 COMBINED COMBINED N VENOUS 1 PHYSICIAN PHYSICIAN BLOOD S LA S LA VENIPUNCT URE PROSTATE G0103 COMBINED COMBINED CANCER 1 PHYSICIAN PHYSICIAN SCREENING S [place] ; [place] [address] COMBINED COMBINED THYROID 1 PHYSICIAN PHYSICIAN STIMULATI S LA S LA NG HORMONE TSH LIPID 46536 COMBINED COMBINED PANEL 1 PHYSICIAN PHYSICIAN S LA S LA NONEMERG A0120 LKLP LKLP TRNSPRT: 1 [facility] N MTN AREA/OTH SYS URNLS DIP 75909 COMBINED COMBINED 1 PHYSICIAN PHYSICIAN STICK/TAB S LA S LA LET REAGENT AUTO MICROSCOP Y CULTURE 98168 COMBINED COMBINED BACTERIAL 1 PHYSICIAN PHYSICIAN S LA S LA [place]TTAT[place] [address] ORAL ORAL SURG 1 PATHOLOGY PATHOLOGY PATHOLOGY LABORATOR LABORATOR GROSS&ARMANDO [place] ROSCOPIC EXAM EXC 88906 THE RODRIGUEZ, LESION/TU 1 IMPLANT & III OANH MOR ORAL DENTOALVE SURGERY C OLAR STRUX W/SMPL RPR ORTHOPANT 72696 THE THE OGRAM 1 IMPLANT & IMPLANT & ORAL ORAL SURGERY C SURGERY C NONEMERG A0120 LKLP LKLP TRNSPRT: 1 [facility] N MTN AREA/OTH SYS NONEMERG A0120 LKLP LKLP TRNSPRT: 1 [facility] N MTN AREA/OTH SYS NONEMERG A0120 LKLP LKLP TRNSPRT: 1 [facility] N MTN AREA/OTH SYS OPHTH [address] [facility] 1 VISION XM&EVAL COMPRE NEW PT 1/> VST RADEX 25350 [facility] WRIST 1 [facility] COMPLETE MINIMUM 3 VIEWS SET-UP Q0092 [facility] PORTABLE 1 [facility] X-RAY EQUIPMENT TRANS R0070 [facility] PRTBL 1 [facility] X-RAY EQP&PERS RICHMOND/NRS RICHMOND-TRIP 1 PT TRANS R0070 [facility] PRTBL 1 [facility] X-RAY EQP&PERS R[place]MOND/NRS RICHMOND-TRIP 1 PT SET-UP Q0092 [facility] PORTABLE 1 [facility] X-RAY EQUIPMENT RADIOLOGI 08081 [facility] C 1 [facility] EXAMINATI ON CHEST SINGLE VIEW FRONTAL URNLS DIP 15227 LAURA SANCHEZ 1 [facility] STICK/TAB INC INC LET REAGENT AUTO MICROSCOP Y 3D 98641 NICKI ALEISHA RENDERING 1 [facility] W/INTERP& [place] [address] NICKI MORAES ABDOMEN & 1 [facility] PELVIS IMAGING W/O ASS CONTRAST MATERIAL BLOOD 82735 LAURA SANCHEZ COUNT 1 [facility] COMPLETE INC INC AUTO&AUTO DIFRNTL WBC INSJ TEMP 67911 LAURA SANCHEZ NDWELLG 1 [facility] BLADDER INC INC CATHETER SIMPLE COMPREHEN 80578 LAURA SANCHEZ SIVE 1 [facility] METABOLIC INC INC PANEL GROUND A0425 [facility] MILEAGE 1 AMBULANCE AMBULANCE PER SERVICE SERVICE STATUTE MILE AMBULANCE A0429 [facility] SERVICE 1 AMBULANCE AMBULANCE BLS SERVICE SERVICE EMERGENCY TRANSPORT GROUND A0425 [facility] MILEAGE 1 AMBULANCE AMBULANCE PER SERVICE SERVICE STATUTE MILE TRANS R0075 [facility] PRTBL 1 MOBILE MOBILE XRAY DIAGNOSTI DIAGNOSTI EQP&PERS C SE C SE RICHMOND/NRS RICHMOND-TRIP> 1 PT AMB A0427 [facility] SERVICE 1 AMBULANCE AMBULANCE ALS SERVICE SERVICE EMERGENCY TRANSPORT LEVEL 1 SBSQ 42689 [facility] [place] CARE/DAY URGENT 25 TREAT MINUTES SET-UP Q0092 [facility] EXPRESS PORTABLE 1 MOBILE MOBILE X-RAY DIAGNOSTI DIAGNOSTI EQUIPMENT C SE C SE RADEX 78760 [facility] WRIST 1 MOBILE MOBILE COMPLETE DIAGNOSTI DIAGNOSTI MINIMUM 3 C SE C SE VIEWS RADEX 31529 [facility] HAND 1 MOBILE MOBILE MINIMUM 3 DIAGNOSTI DIAGNOSTI VIEWS C SE C SE RADIOLOGI 47777 [facility] [place] RADHA C 1 RADIOLOGY BOY EXAMINATI ON CHEST SINGLE VIEW FRONTAL ECG 30522 [facility] ROUTINE 1 [facility] ECG CARDIOLOG W/LEAST Y CLINIC 12 LDS I&R ONLY SBSQ [address] CARE/DAY URGENT 35 TREAT MINUTES SBSQ [id number] CARE/DAY URGENT 25 TREAT MINUTES SBSQ 23933 [facility] [place] CARE/DAY URGENT 25 TREAT MINUTES SBSQ 70906 [facility] 1 URGENT CARE/DAY TREATMENT 35 A MINUTES SET-UP Q0092 EXPRESS EXPRESS PORTABLE 1 MOBILE MOBILE X-RAY DIAGNOSTI DIAGNOSTI EQUIPMENT C SE C SE TRANS R0070 EXPRESS EXPRESS PRTBL 1 MOBILE MOBILE X-RAY DIAGNOSTI DIAGNOSTI EQP&PERS C SE C SE RICHMOND/NRS RICHMOND-TRIP 1 PT RADEX 68364 EXPRESS EXPRESS HAND 1 MOBILE MOBILE MINIMUM 3 DIAGNOSTI DIAGNOSTI VIEWS C SE C SE SBSQ 08114 [facility] 1 URGENT CARE/DAY TREATMENT 35 A MINUTES SET-UP Q0092 EXPRESS EXPRESS PORTABLE 1 MOBILE MOBILE X-RAY DIAGNOSTI DIAGNOSTI EQUIPMENT C SE C SE SBSQ 54282 [facility] [place] CARE/DAY URGENT 35 TREAT MINUTES TRANS R0070 EXPRESS EXPRESS PRTBL 1 MOBILE MOBILE X-RAY DIAGNOSTI DIAGNOSTI EQP&PERS C SE C SE RICHMOND/NRS RICHMOND-TRIP 1 PT ECG 49738 [facility] ROUTINE 1 [place] ECG URGENT W/LEAST TREAT 12 LDS I&R ONLY ECG 05268 EXPRESS EXPRESS ROUTINE 1 MOBILE MOBILE ECG DIAGNOSTI DIAGNOSTI W/LEAST C SE C SE 12 LDS TRCG ONLY W/O I&R RADIOLOGI 74420 EXPRESS EXPRESS C EXAM 1 MOBILE MOBILE CHEST 2 DIAGNOSTI DIAGNOSTI VIEWS C SE C SE FRONTAL&L ATERAL INITIAL 08725 [facility] 1 URGENT CARE/DAY TREATMENT 50 A MINUTES COMPREHEN 19549 FAMILY [facility] SIVE 1 PRACT RONALD METABOLIC ASSOC OF PANEL [place] COLLECTIO 24204 FAMILY FAMILY N VENOUS 1 PRACT PRACT BLOOD ASSOC OF ASSOC OF VENIPUNCT [place] [address] FAMILY MONOHAN FREE 1 PRACT RONALD THYROXINE ASSOC OF [place] RADEX 82799 CENTRAL LYN J SPINE 1 RADIOLOGY THORACIC ASSOC [place] [address] FAMILY MONOHAN THYROID 1 PRACT RONALD STIMULATI ASSOC OF NG [place] HORMONE TSH LIPID 56407 FAMILY [facility] PANEL 1 PRACT RON[facility]D ASSOC OF [place] URNLS DIP 76119 FAMILY MONOHAN 1 PRACT RONALD STICK/TAB ASSOC OF [place] [address] [place] ABDOMEN & 1 RADIOLOGY LD A PELVIS W/CONTRAS T MATERIAL Encounters Encounter Start End Date Code Location Performer Type Date [facility] - OTHER 7 7 [facility] LAURA - OTHER 7 7 [facility] 7 7 [facility] - [address] [facility] OFFICE 33032 [facility] [place] [facility] [facility] 7 7 [facility] 10 P MINUTES [facility] 7 [facility] E OFFICE 28557 [facility] OUTPATIEN 7 7 MEDICAL T VISIT SERV 40 FOUNDATIO MINUTES [facility] LAURA - OTHER 7 7 [facility] INPAT[facility] 7 7 [facility]ALTH[facility] E OFFICE 79949 [facility] PETTEY OUTPATIEN 7 7 PHYSICIAN T VISIT S GROUP 10 MINUTES OFFICE 84150 [facility] MEREDITH OUTPATIEN 7 7 PHYSICIAN T VISIT S GROUP 25 MINUTES [facility] - 7 7 [facility] OFFICE 36774 [facility] [place] [facility] 7 7 [facility] 10 P MINUTES [facility] 7 [facility] - 7 7 [facility]A - 7 7 [facility] OUTPATIEN INC T OFFICE 42378 [facility] [place] OUTPATIEN 7 7 [facility] 10 P MINUTES OFFICE 84945 [facility] PETTEY OUTPATIEN 7 7 PHYSICIAN T VISIT S GROUP 15 MINUTES HOSPITAL [facility] - 7 7 [facility] OUTPATIEN INC [facility] - OTHER 7 7 [facility] IN[facility] 7 7 HEALTHCAR E OFFICE 25728 [facility] BRYANT OUTPATIEN 7 7 PHYSICIAN T NEW 20 S GROUP MINUTES [facility] 7 7 [facility]ALTH[facility] E OFFICE 48746 [facility] MEREDITH OUTPATIEN 7 7 PHYSICIAN T VISIT S GROUP 25 MINUTES HOSPITAL [facility] - 7 7 [facility] OUTPATIEN INC [facility] [place] INPATIENT 7 7 [facility] E [facility] 7 7 [facility]ALTHCAR E EMERGENCY 75354 KEVIN JEFFERS DEPT 7 7 PHYSICIAN VISIT S, PLLC HIGH SEVERITY& THREAT [facility] [place] INPATIENT 7 7 HEALTHCAR E OFFICE 41054 [place] OUTPATIEN 7 7 MEDICAL T VISIT SERV 25 FOUNDATIO MINUTES [facility] UK - 7 7 HEALTHCAR OUTPATIEN E [facility] IN[facility] 7 7 [facility]CAR E [facility] 6 6 [facility] E [facility] IN[facility] 6 6 [facility]ALTHCAR E HOSPITAL [facility] - 6 6 [facility] OUTPATIEN INC T OFFICE 52698 [place] BE[place] OUTPATIEN 6 6 MEDICAL T VISIT SERV 25 FOUNDATIO MINUTES N [facility] [address] 6 6 [facility] LAURA - 6 6 [facility] OUTPATIEN INC T OFFICE 40739 [facility] MEREDITH OUTPATIEN 6 6 PHYSICIAN MAT T VISIT S GROUP 25 MINUTES [facility] 6 6 [facility] 6 [facility] 6 6 [facility] E OFFICE 81532 [facility] MEREDITH OUTPATIEN 6 6 PHYSICIAN MAT T VISIT S GROUP 25 MINUTES OFFICE 53581 [facility] MEREDITH OUTPATIEN 6 6 PHYSICIAN MAT T VISIT S GROUP 25 MINUTES HOSPITAL MEADOWVIE - 6 6 W [facility] LAURA - 6 6 [facility] OUTPATIEN INC T OFFICE 57900 [facility] MEREDITH OUTPATIEN 6 6 PHYSICIAN MAT T VISIT S GROUP 25 MINUTES [facility] 6 W [facility] LAURA - 6 6 [facility] OUTPATIEN INC T OFFICE 23443 CARDIOVAS [facility] OUTPATIEN 6 6 CULAR MAT T VISIT CONSULTAN 25 TS O MINUTES EMERGENCY 13330 [facility] 5 5 [facility] DEPARTMEN INC T VISIT LOW/MODER SEVERITY [facility]OSPITAL [facility] - 5 5 [facility] OUTPATIEN INC T OFFICE 51745 CARDIOVAS [facility] OUTPATIEN 5 5 CULAR MAT T VISIT CONSULTAN 40 TS O MINUTES HOSPITAL [facility] - 5 5 [facility] OUTPATIEN INC T OFFICE 06396 [facility] OUTPATIEN 5 5 Y T VISIT 5 [facility] T EMERGENCY 56872 [facility] 5 5 [facility] DEPARTMEN INC T VISIT MODERATE SEVERITY HOSPITAL [facility] - 5 5 [facility] OUTPATIEN INC T [facility]OSPITAL [facility] - 5 5 [facility] OUTPATIEN INC T [facility]OSPITAL [facility] - 4 4 [facility] OUTPATIEN INC T OFFICE 73533 [place] OUTPATIEN 4 4 MEDICAL SHA T NEW 30 SERV MINUTES FOUNDATIO N OFFICE 81892 [facility] 4 4 T VISIT 10 OFFICE 68769 [facility] 4 4 T VISIT 10 MINUTES HOSPITAL [facility] - 4 4 [facility] OUTPATIEN INC T OFFICE 07499 ANNETTE BRYANT OUTPATIEN 4 4 DEUCE DEUCE T NEW OFFICE 37970 [facility] 4 4 PHYSICIAN JAM T VISIT S GROUP 15 HOSPITAL LAURA - 4 4 [facility] OUTPATIEN INC T [facility]OSPITAL [facility] - 3 3 [facility] OUTPATIEN INC T [facility] - 3 3 [facility] OUTPATIEN INC T [facility]OSPITAL LAURA - 3 3 [facility] OUTPATIEN INC T OFFICE 85646 [facility] 3 3 NEUROLOGY [facility] T VISIT CENTER 15 [place] MINUTES HOSPITAL [facility]URA - 3 3 [facility] OUTPATIEN INC T [facility] - 3 3 [facility] OUTPATIEN INC T OFFICE 43273 MARKIE SANDERSON OUTPATIEN 3 3 FOOT AND T NEW 20 ANKLE MINUTES CENTER OFFICE 94031 LAURA GEORGE OUTPATIEN 3 3 SATHYA HILLMAN T VISIT HOSPITAL 25 MINUTES HOSPITAL [facility] - 3 3 [facility] OUTPATIEN INC T EMERGENCY 84610 ERIC JEFFERS DEPT 3 3 MEDICAL ARMANDO VISIT GROUP, HIGH PLLC SEVERITY& THREAT FUNCJ EMERGENCY 25996 [facility] 3 [facility] T VISIT HIGH/URGE NT SEVERITY HOSPITAL [address] [facility] [address] T VISIT LOW/MODER SEVERITY EMERGENCY 54374 [facility] 3 3 [facility] EMERGENCY T VISIT PHYSI MODERATE SEVERITY OFFICE 52771 [facility] OUTPATIEN 3 3 ZO BRUNO BERNSTEIN T VISIT CARDIOLOG 15 Y CLINIC MINUTES HOSPITAL LA[facility]A - 3 3 [facility] OUTPATIEN INC T OFFICE 37856 C ANTONETTE DORIS OUTPATIEN 2 2 KRZYSZTOFTERESA HILLMAN Abhijit NEW 45 MD [facility] MINUTES OFFICE 99404 [facility] OUTPATI[facility] 2 2 ZO TATUM T VISIT CARDIOLOG 25 Y CLINIC MINUTES HOSPITAL LA[facility] - 2 2 [facility] OUTPATIEN INC T EMERGENCY 19251 [facility] MODERATE [facility]VERITY [facility] - 2 2 [facility] OUTPATIEN INC T HOSPITAL [facility] 2 2 [facility] OUTPATIEN INC T EMERGENCY 28718 [facility] 2 2 [facility] DEPART[facility] INC T VISIT [facility]IGH/URGE NT SEVERITY HOSPITAL [facility] - 2 2 [facility] OUTPATIEN INC T HOSPITAL LAURA - 2 2 [facility] OUTPATIEN [facility] EMERGENCY 29280 [facility] 2 2 [facility] T VISIT [facility]OW/MODER SEVERITY HOSPITAL LAUR[facility] - 1 1 [facility] OUTPATIEN [facility] LAURA - 1 1 [facility] OUTPATIEN [facility] EMERGENCY 11367 LAUR[facility] 1 1 [facility] T VISIT [facility]IGH/URGE NT SEVERITY HOSPITAL LAURA - 1 1 [facility] OUTPATIEN [facility] LAURA - 1 1 [facility] OUTPATIEN [facility]URA - 1 1 [facility] OUTPATIEN [facility] OFFICE 94248 [place] [facility]NAV[facility] OUTPATIEN 1 1 [facility] SERV MINUTES [facility]URA - 1 1 [facility] OUTPATIEN [facility] EMERGENCY 82712 [facility] DEPT 1 1 EMERGENCY ARMANDO VISIT SERVICES [facility]IGH SEVERITY& [facility] 1 [facility] OUTPATIEN [facility] EMERGENCY 68237 LAUR[facility] 1 1 [facility] VISIT HIGH/URGE NT SEVERITY OFFICE 20307 LAURA MATHIS JR OUTPATIEN 1 1 [facility] 30 HOSPITAL MINUTES P OFFICE 39467 FAMILY MONOHAN OUTPATIEN 1 1 PRACT RONALD T VISIT ASSOC OF 25 [place] PS MINUTES OFFICE 77038 FAMILY MONOHAN OUTPATIEN 1 1 PRACT RONALD T VISIT ASSOC OF 25 [place] PS MINUTES EMERGENCY 23370 [facility] DEPT 1 1 PRIMARY CARLOS VISIT CARE HIGH PHYSICANS SEVERITY& M THREAT FUN
--- OUTSIDE RECORDS SUMMARY | 2017-05-17 17:26 | External Medical Summary Rpt | CCD ---
Author Author , GRAHAM Organization GRAHAM Address Unknown Phone [email or web address] Insurance Care Team Providers Care Strategy Execution Consultant Name Role Phone [facility], ABLECARE Unavailable Unavailable [facility], [facility]ARE Unavailable Unavailable RADHA BOY, RADHA Unavailable Unavailable BOY [facility] Unavailable Unavailable PHYSICANS M, [facility] M LEAL, LEAL Unavailable Unavailable [facility] Unavailable Unavailable [facility], [facility] Unavailable Unavailable ASSOCI[facility], [facility] DESMOND CARLOS, Unavailable Unavailable DESMOND CARLOS ANJUR-KAPALI DAY, Unavailable Unavailable ANJUR-KAPALI DAY MAGDALENA FAD, MAGDALENA FAD Unavailable Unavailable [facility] [place] BEINEKE GILMA, BEINEKE Unavailable Unavailable GILMA BESSON, BESSON Unavailable Unavailable BESSON JEANIE, BESSON Unavailable Unavailable JEANIE BESSON JEANIE, BESSON Unavailable Unavailable JEANIE ORDONEZ, ORDONEZ Unavailable Unavailable ORDONEZ ALL, ORDONEZ ALL Unavailable Unavailable BRAUDIS JAM, BRAUDIS Unavailable Unavailable JAM BRAUDIS JAM, BRAUDIS Unavailable Unavailable JAM [facility] Unavailable Unavailable SERVICE, [facility] Unavailable Unavailable SERVICE, [facility] DOBSON LAR, DOBSON LAR Unavailable [...] ERNST QUINTERO ERNST, Unavailable Unavailable QUINTERO ERNST [facility], Unavailable Unavailable [facility] VINH DYLAN, Unavailable Unavailable VINH DYLAN [...] ARMANDO SUAD ARMANDO, SUAD ARMANDO Unavailable Unavailable [facility] Unavailable Unavailable INC, [facility] Unavailable [facility]available HOSPITAL, [facility] Unavailable [facility]available HOSPITAL P, [facility] HEEB CHR, [facility]B [facility] Unavailable Unavailable [facility] Unavailable Unavailable [facility] Unavailable Unavailable [facility], Unavailable Unavailable [facility] Unavailable Unavailable IMAGING [facility], [facility] KIERRA THO, KIERRA THO Unavailable Unavailable [facility] Un[facility] BRYANT, BRYANT Unavailable Unavailable BRYANT DEUCE, BRYANT Unavailable Unavailable DEUCE CHRIS EHSAN, CHRIS Unavailable Unavailable EHSAN HAROLDO JR DWI, HAROLDO Unavailable Unavailable JR DWI HAROLDO JR DWI, HAROLDO Unavailable Unavailable JR DWI [facility] Unavailable Unavailable 11, [facility] 11 [facility], Unavailable Unavailable [facility] Unavailable Unavailable ACTION, [facility] KNOWLES JAM, Unavailable Unavailable KNOWLES JAM KNOWLES JAM, Unavailable Unavailable KNOWLES JAM BENAVIDES, BENAVIDES Unavailable Unavailable BENAVIDES JAM, Unavailable Unavailable BENAVIDES JAM [facility] Un[facility] Unavailable MED[facility], [facility] Unavailable [facility]available MEDICAL, [facility] Unavailable [facility]available [facility] [facility] Unavailable Unavailable SERVICE, [facility] MONOHAN RONALD, MONOHAN Unavailable Unavailable RONALD SIEGEL JUAQUIN, SIEGEL Unavailable Unavailable JUAQUIN ONDINA, ONDINA Unavailable Unavailable ONDINA SHA, ONDINA Unavailable Unavailable SHA NEILS JONATHAN, NEILS JONATHAN Unavailable Unavailable [facility] Unavailable Unavailable URGENT TREAT, [facility] Unavailable Unavailable [...] TREATMENT [facility] Un[facility] Un[facility], [facility] Unavailable Unavailable OF [facility], [facility] OF [facility], Unavailable Unavailable [facility] Unavailable Unavailable CLINIC, [facility] Unavailable Unavailable SURGERY C, [facility] Unavailable Unavailable HOSPITALS, [facility], Unavailable Unavailable [facility] WEHRMAN III MARCY, Unavailable Unavailable WEHRMAN III MARCY ZEKE BAR, ZEKE BAR Unavailable Unavailable ZEKE BAR, ZEKE BAR Unavailable Unavailable KALINA A, Unavailable Unavailable KALINA A Purpose Continuity of Care Document - 12-28-2010 through 2016 Problems Code Diagnosis DOS Provider Status D649 ANEMIA 04-11-2017 [facility] N390 URINARY 04-07-2017 [facility]CT [facility] INFECTION INC SITE NOT SPECIFIED I2510 [place] 04-06-2017 [facility] ART[facility] W/O [place] PECTORIS R627 ADULT 04-06-2017 [facility] FAILURE TO HEALTH THRIVE ASSOCIATES G4733 OBSTRUCTIVE 04-04-2017 [facility] SLEEP [facility] APNEA ADULT INC PEDIATRIC I509 HEART 04-04-2017 [facility] FAILURE [facility] UNSPECIFIED INC J449 CHRONIC 04-04-2017 [facility] OBSTRUCTIVE [facility] PULMONARY INC DISEASE UNS R0602 SHORTNESS 04-04-2017 [place] [facility] R1310 DYSPHAGIA 04-04-2017 [place] [facility] R5383 OTHER 04-04-2017 [facility] R942 ABNORMAL 04-04-2017 [facility] RESULTS OF [facility] PULMONARY INC FUNCTION STUDIES E162 HYPOGLYCEMI 03-27-2017 [facility] A HEALTH UNSPECIFIED ASSOCIATES G61095 OTHER LONG 03-21-2017 [facility] CURRENT ASSOCIATES DRUG THERAPY B351 TINEA 02-05-2017 SPECIAL UNGUIUM CARE PODIATRY OF Y[place] Q73465 PAIN IN 02-05-2017 SPECIAL RIGHT TOES CARE PODIATRY OF [place] A91449 PAIN IN 02-05-2017 SPECIAL LEFT TOES CARE PODIATRY OF [place] R69 ILLNESS 01-16-2017 [facility] UNSPECIFIED TRANSPORTAT ION SER Z9989 DEPENDENCE 01-16-2017 [place] [facility] OTHER SERV ENABLING Ammado MACHINES & DEVICES A99119 PAIN IN 01-13-2017 [facility] RIGHT KNEE [facility] D25154 PAIN IN 01-13-2017 [facility] RIGHT LEG LLC M98044 PAIN IN 01-13-2017 [facility] RIGHT LOWER LLC LEG E119 TYPE 2 01-09-2017 [facility] DIABETES [facility] MELLITUS ASSOCIATES WITHOUT COMPLICATIO NS I10 ESSENTIAL 01-09-2017 [facility] HYPERTENSIO ASSOCIATES N R4182 ALTERED 01-09-2017 [facility] MENTAL HEALTH STATUS ASSOCIATES UNSPECIFIED R531 WEAKNESS 01-09-2017 [facility] Z7409 OTHER 01-09-2017 [facility] REDUCED [facility] MOBILITY INC I517 CARDIOMEGAL 01-08-2017 [facility] Y LLC J20789 PAIN IN 01-04-2017 [facility] RIGHT WRIST [facility]ICAL IMAGING ASS M7989 OTHER 01-04-2017 [facility] SPECIFIED MEDICAL SOFT TISSUE IMAGING ASS DISORDERS R609 EDEMA 01-04-2017 [facility] UNSPECIFIED [facility] INC I88795 PAIN IN 01-01-2017 [facility] RIGHT LLC FOREARM M7541 IMPINGEMENT 12-28-2016 [facility] SYNDROME PHYSICIANS OF RIGHT GROUP SHOULDER E6601 MORBID 12-19-2016 [facility] SEVERE PHYSICIANS OBESITY DUE GROUP TO EXCESS CALORIES E785 HYPERLIPIDE 12-19-2016 [facility] OSMANY PHYSICIANS UNSPECIFIED GROUP I119 HYPERTENSIV 12-19-2016 [facility] E HEART PHYSICIANS DISEASE GROUP WITHOUT HEART FAILURE N3000 ACUTE 12-12-2016 [facility] [facility] P HEMATURIA I272 OTHER 11-27-2016 [facility] SECONDARY [facility] PULMONARY INC HYPERTENSIO N N3001 ACUTE 11-21-2016 [facility] [facility] P HEMATURIA G15618 PAIN IN 11-16-2016 [facility] RIGHT MEDICAL SHOULDER IMAGING ASS K140 GLOSSITIS 11-02-2016 [facility]ANS GROUP R918 OTHER 10-11-2016 [facility] NONSPECIFIC LLC ABNORMAL FINDING OF LUNG FIELD R0682 TACHYPNEA 09-19-2016 [facility] NOT PHYSICIANS ELSEWHERE GROUP CLASSIFIED R072 PRECORDIAL 09-04-2016 [facility] PAIN PHYSICIANS, [facility] R0789 OTHER CHEST 09-04-2016 [facility] PAIN AMBULANCE SERVICE R079 CHEST PAIN 09-04-2016 [facility] UNSPECIFIED [facility] IM[facility]ING ASS Z955 PRESENCE OF 09-04-2016 [facility] IMPLANT & GRAFT P80644 MECHANICAL 08-24-2016 IN MEDICAL PTOSIS OF SERV RIGHT FOUNDATION EYELID F99904 DERMATOCHAL 08-24-2016 [place] [facility] ASIS OF SERV RIGHT EYE FOUNDATION UNSPECIFIED EYELID L52366 DERMATOCHAL 08-24-2016 [place] [facility] OF SERV LEFT EYE FOUNDATION UNSPECIFIED EYELID G4730 SLEEP APNEA 06-07-2016 IN MEDICAL SERV UNSPECIFIED FOUNDATION E876 HYPOKALEMIA 05-29-2016 [facility] K219 GASTRO-ESOP 04-25-2016 [facility] REFLUX [facility] WITHOUT ESOPHAGITIS A15123 SPONDYLOSIS 04-04-2016 [facility] W/O MEDICAL MYELOPATH/R IMAGING ASS ADICULOPATH Y CERV RGN M5032 OTH CERV 04-04-2016 [facility] DISC MEDICAL DEGENERATIO IMAGING ASS N MID-CERVICA L REGION M542 CERVICALGIA 04-04-2016 [facility] M545 LOW BACK 04-04-2016 [facility] PAIN [facility]ICAL [facility] ASS M546 PAIN IN 04-04-2016 [facility] THORACIC [facility] SPINE IMAGING ASS Y513RMZ UNSPECIFIED 04-04-2016 [facility] INJURY OF MEDICAL NECK IMAGING ASS INITIAL ENCOUNTER V6093UP UNSPECIFIED 04-04-2016 [facility] INJURY MEDICAL LOWER BACK IMAGING ASS INITIAL ENCOUNTER K449 DIAPHRAGMAT 03-03-2016 [place] IC [facility] W/O HOSPITAL P OBSTRUCTION OR GANGRENE C97341 PERSONAL 03-03-2016 [place] HISTORY OF [facility] P DEPENDENCE I208 OTHER FORMS 02-25-2016 [facility] OF ANGINA PHYSICIANS PECTORIS GROUP S22242 [facility] 02-25-2016 [facility] COR ART PHYSICIANS W/UNSTABLE GROUP ANGINA PECTORIS E662 MORBID 02-21-2016 [facility] P W/ALVEOLAR HYPOVENTILA TION G83093 [place] [place] 02-21-2016 [place] COR ARTREY [facility] W/UNS HOSPITAL P ANGINA PECTORIS M654 RADIAL 02-16-2016 [facility] STYLOID [facility] TENOSYNOVIT INC IS DE QUERVAIN H01916 OTHER 02-16-2016 [facility] SYNOVITIS [facility] TENOSYNOVIT IS RIGHT HAND I209 ANGINA 12-08-2015 [place] P[facility]IS REGIONAL UNSPECIFIED MEDICAL E29870 [place] [place] 12-08-2015 [facility] COR ART PHYSICIANS W/OTH FORMS GROUP ANGINA PECTORIS R0600 DYSPNEA 11-29-2015 [facility] UNSPECIFIED [facility] M460B7V CONCUSSION 11-20-2015 [facility] W/LOC 30 [facility] P INITIAL ENCOUNTER F5148DE UNSPECIFIED 11-20-2015 [facility] INJURY OF MEDICAL HEAD IMAGING ASS INITIAL ENCOUNTER N788PCR STRAIN 11-20-2015 [place] MUSCLE [facility] P NECK LEVL INIT ENC M24610Q CONTUSION 11-20-2015 [facility] UNS BACK [facility] P INITIAL ENCOUNTER Z043 ENCOUNTER 11-20-2015 [facility] EXAM & MEDICAL OBSERVATION IMAGING ASS FOLLOW OTH ACCIDENT R339 RETENTION 07-12-2015 [facility] JEANIE OF URINE UNSPECIFIED V85966 PAIN IN 06-30-2015 [facility] LEFT MEDICAL FINGERS IMAGING ASS K0842QN UNSPECIFIED 06-30-2015 [facility] INJURY LT MEDICAL WRIST HAND IMAGING ASS FINGERS INITIAL B353 TINEA PEDIS 06-08-2015 [facility] INC 91999 OBSTRUCTIVE 05-04-2015 [facility] [place] [place] [address] UNSPEC HTN 05-04-2015 [facility] HEART LAR DISEASE [facility]SULTANTS WITHOUT O HEART FAIL 54350 COR 05-04-2015 [facility] ATHEROSLERO [facility] UNSPEC INC TYPE VESSEL [place]/MAHSA T 4160 PRIMARY 05-04-2015 [facility] PULMONARY LAR HYPERTENSIO CONSULTANTS N O 4168 OTHER 05-04-2015 [facility] CHRONIC [facility] PULMONARY INC HEART DISEASES 496 CHRONIC 05-04-2015 [facility] AIRWAY [facility] OBSTRUCTION INC NEC 31942 05-04-2015 [facility] ION SER V7284 UNSPECIFIED 05-04-2015 [facility] PRE-OPERATI INC VE EXAMINATION 3699 UNSPECIFIED 04-28-2015 [facility] LOSS 91167 UNSPECIFIED 04-28-2015 [facility]OSPITAL EYELID V7283 OTHER 04-28-2015 [facility] PRE-OPERATI VE EXAMINATION 62797 ACUTE 02-16-2015 [facility] RESPIRATORY FAILURE 4111 INTERMEDIAT 01-25-2015 [facility] E CORONARY LAR SYNDROME CONSULTANTS O 4293 CARDIOMEGAL 01-23-2015 [facility] Y [facility] 5920 CALCULUS OF 01-23-2015 [facility] KIDNEY [facility] 25443 UNSPECIFIED 01-23-2015 [facility] RETENTION MEDICAL OF URINE IMAGING ASS 95880 ABDOMINAL 01-23-2015 [facility] PAIN RIGHT MEDICAL LOWER IMAGING ASS QUADRANT 36970 PAIN IN 01-03-2015 [facility] JOINT MEDICAL PELVIC IMAGING ASS REGION AND THIGH 87893 DISPLCMT 01-03-2015 [facility] THOR MEDICAL INTERVERT IMAGING ASS DISC WITHOUT MYELOPATHY 7231 CERVICALGIA 01-03-2015 [facility] 7241 PAIN IN 01-03-2015 [facility] THORACIC [facility] SPINE IMAGING ASS 14197 CHEST PAIN 01-03-2015 [facility] UNSPECIFIED [facility]ICAL IMAGING ASS 78786 HYPERTENSIV 12-28-2014 [facility] E HEART [facility] DISEASE INC UNSPEC W/HEART FAIL 4280 CONGESTIVE 12-28-2014 [place] HEART [facility] FAILURE INC UNSPECIFIED 35401 ESOPHAGEAL 12-28-2014 [facility] REFLUX [facility] INC 05466 SHORTNESS 12-28-2014 [facility] OF BREATH MEDICAL IMAGING ASS 07437 OTHER 12-18-2014 [facility] DYSPNEA AND [place] [address] MECHANICAL 04-01-2014 IN MEDICAL PTOSIS SERV FOUNDATION 2449 UNSPECIFIED 03-18-2014 [facility] HOSP HYPOTHYROID INC ISM 60235 PANNUS 02-18-2014 IN MEDICAL SERV FOUNDATION 5950 ACUTE 12-18-2013 [place] CYSTITIS [facility] P 90492 NOCTURNAL 12-18-2013 [place] ENURESIS [facility] P 98166 OTHER 11-24-2013 [facility] MUCOPURULEN T CONJUNCTIVI TIS 63133 UNSPECIFIED 10-02-2013 [place] URINARY [facility] E 3831 CHRONIC 09-05-2013 [facility] MASTOIDITIS [facility] INC 3839 UNSPECIFIED 09-05-2013 [facility] MASTOIDITIS INC 20419 UNSPECIFIED 09-05-2013 [facility] OTALGIA [facility] INC 470 DEVIATED 09-05-2013 [facility] NASAL MEDICAL SEPTUM IMAGING ASS 19729 OTHER 09-05-2013 [facility] DISEASES OF MEDICAL NASAL IMAGING ASS CAVITY AND SINUSES 61077 ARTHRALGIA 09-05-2013 [facility] HOS[facility] TEMPOROMAND INC IBULAR JOINT 69558 PAIN IN 08-15-2013 [facility] JOINT, PHYSICIANS FOREARM GROUP 22859 PAIN IN 08-15-2013 [place] JOINT, [facility] LOWER LEG INC 19791 PLICA 08-15-2013 [facility] SYNDROME PHYSICIANS GROUP 3540 CARPAL 06-23-2013 [place] TUNNEL [facility] SYNDROME INC V5869 LONG-TERM 06-23-2013 [place] (CURRENT) [facility]OS[facility] USE OF INC OTHER MEDICATIONS 2724 OTHER AND 05-23-2013 [place] [facility] HY[facility]IP[facility] OSMANY 5180 PULMONARY 05-23-2013 [facility] COLLAPSE [facility] IM[facility]ING ASS 80782 ACUTE 05-08-2013 ELENI FOLLICULAR JAM CONJUNCTIVI TIS 41796 CONTACT AND 05-08-2013 [facility] ALLERGIC JAM DERMATITIS OF EYELID 15306 VITREOUS 05-08-2013 [facility] DEGENERATIO JAM N 3688 OTHER 04-16-2013 [facility] SPECIFIED [facility] [place] DISTURBANCE S 7820 DISTURBANCE 04-16-2013 [facility] OF SKIN [facility]UROLOGY SENSATION [facility] [place] 1101 DERMATOPHYT 04-11-2013 [facility] OSIS OF NAIL 45397 ATHEROSCLER 04-11-2013 [facility] [place] ART EXTREMITIES UNSPEC 7011 ACQUIRED 04-11-2013 [facility] [place] KERATODERMA 7295 PAIN IN 04-11-2013 B[facility] JAM SOFT TISSUES OF LIMB 46816 SPONDYLOSIS 03-19-2013 [facility] UNSPEC MEDICAL SITE W/O IMAGING ASS MENTION MYELOPATHY 7238 OTHER 03-19-2013 [facility] SYNDROMES MEDICAL AFFECTING IMAGING ASS CERVICAL REGION 53554 DIAB W/O 02-13-2013 [place] COMP TYPE [facility] II/UNS NOT INC STATED UNCNTRL 79330 BARRETTS 02-13-2013 [facility] ESOPHAGUS SUNITHA & DUBILIER 7871 HEARTBURN 02-13-2013 [facility] INC 56249 ONYCHIA AND 02-06-2013 [facility] PARONYCHIA AND ANKLE OF TOE CENTER 7030 INGROWING 02-06-2013 [facility] NAIL AND ANKLE CENTER 340 MULTIPLE 01-30-2013 [place] SCLEROSIS [facility] 4149 UNSPECIFIED 01-30-[address] [facility]MIC [facility] HEART DISEASE 18715 OTHER 01-30-2013 [place] CONVULSIONS [facility] 97650 UNSPECIFIED 01-30-2013 [place] SLEEP [facility] HOSPITAL 69784 HEMATURIA 01-15-2013 [place] UNSPECIFIED [facility] P 35915 ABDOMINAL 01-15-2013 [facility] PAIN, AMBULANCE UNSPECIFIED SERVICE SITE 75205 PUNCTATE 01-08-2013 [facility] N EMERGENCY PHYSI 48337 BLEPHARITIS 01-08-2013 [facility] UNSPECIFIED V7644 SPECIAL 11-13-2012 COMBINED SCREENING PHYSICIANS MALIGNANT LA NEOPLASM OF PROSTATE 5990 URINARY 11-11-2012 COMBINED TRACT PHYSICIANS INFECTION LA SITE NOT SPECIFIED 4019 UNSPECIFIED 10-28-2012 [facility] ESSENTIAL CARDIOLOGY HYPERTENSIO CLINIC N 79882 CORONARY 10-28-2012 [facility] ATHEROSCLER CARDIOLOGY [facility] [place] CORONARY ARTERY 12455 PAIN IN 10-27-2012 [facility], [place] [address] PAIN IN 10-27-2012 [facility], MOBILE UPPER ARM DIAGNOSTIC SE 7823 EDEMA 09-19-2012 BRAUDIS JAM 70122 DIVERTICULO 08-08-2012 [facility] SIS OF MEM HOS[facility] COLON INC 5693 HEMORRHAGE 08-08-2012 [facility] OF RECTUM [facility] H[facility] AND ANUS INC V160 FM HX 08-01-2012 C AN[facility]ETTE MALIGNANT SCHULSTAD NEOPLASM PSC GASTROINTES TINAL TRACT V7651 SPECIAL 08-01-2012 C ANTONETTE SCREENING SCHULSTAD FOR PSC MALIGNANT NEOPLASMS COLON 4139 OTHER AND 03-25-2012 HAROLDO MARTINEZ UNSPECIFIED DWI ANGINA PECTORIS 5533 DIAPHRAGMAT 03-10-2012 [facility] MARTHA W/O MEDICAL MENTION IMAGING ASS OBSTRUCTION /GANGREN 5718 OTHER 03-10-2012 [facility] CHRONIC MEDICAL NONALCOHOLI IMAGING ASS C LIVER DISEASE 5939 UNSPECIFIED 03-10-2012 [facility] DISORDER MEDICAL OF KIDNEY IMAGING ASS AND URETER 7881 DYSURIA 03-07-2012 [facility] INC 4589 UNSPECIFIED 03-04-2012 WEHRMAN III MARCY HYPOTENSION 5849 ACUTE 03-04-2012 WEHRMAN III KIDNEY MARCY FAILURE UNSPECIFIED 7224 DEGENERATIO 01-25-2012 [facility] N OF MEDICAL CERVICAL IMAGING ASS INTERVERTEB RAL DISC 7842 SWELLING 01-25-2012 WEHRMAN III MASS OR MARCY LUMP IN HEAD AND NECK 7856 ENLARGEMENT 01-25-2012 [facility] OF LYMPH MEDICAL NODES IMAGING ASS 05491 DYSPHAGIA 01-25-2012 [facility] UNSPECIFIED AMBULANCE SERVICE 1122 CANDIDIASIS 01-11-2012 MIRA MARCY OF OTHER UROGENITAL SITES 28120 OTHER 01-11-2012 [facility] CANDIDIASIS [facility]OS[facility] OF OTHER INC SPECIFIED SITES 7912 HEMOGLOBINU 01-11-2012 [facility] SHARON AMBULANCE SERVICE 03042 NONSPECIFIC 09-11-2011 [facility] BAR ABNORMAL ELECTROCARD IOGRAM 72194 HYPERSOMNIA 07-18-2011 [facility] WITH SLEEP ERNST APNEA UNSPECIFIED 20727 ABDOMINAL 07-04-2011 [facility] PAIN, AMBULANCE PERIUMBILIC SERVICE 6010 ACUTE 07-03-2011 [facility] ARMANDO PROSTATITIS 6019 UNSPECIFIED 07-03-2011 [facility] PROSTATITIS INC 41859 ASTHMA, 06-14-2011 [facility] JEANIE UNSPECIFIED , UNSPECIFIED STATUS 69561 OTHER CHEST 06-14-2011 [facility] JEANIE PAIN 18349 OTHER 06-13-2011 [facility] NONSPECIFIC MEDICAL ABNORMAL IMAGING ASS FINDING OF LUNG FIELD 14503 MORBID 05-31-2011 IN MEDICAL OBESITY SERV FOUNDATIO 4778 ALLERGIC 05-31-2011 IN MEDICAL RHINITIS SERV DUE TO FOUNDATIO OTHER ALLERGEN 94190 APNEA 05-31-2011 [facility] HOS[facility] INC 7019 UNSPECIFIED 05-19-2011 ORAL PATHOLOGY HYPERTROPHI LABORATORY C&ATROPHIC CONDITION SKIN 5210 DENTAL 05-16-2011 THE IMPLANT CARIES & ORAL SURGERY C 42405 UNSPECIFIED 05-08-2011 [facility] BLEPHAROCON JUNCTIVITIS 7862 COUGH 04-26-2011 [employer] 11282 UNSPECIFIED 03-30-2011 [facility] CONJUNCTIVI URGENT TIS TREAT 77934 PAIN IN 03-30-2011 [facility], HAND MOBILE DIAGNOSTIC SE 6961 OTHER 03-23-2011 [facility] [place] PSORIASIS URGENT AND SIMILAR TREATMENT A DISORDERS 17221 OBESITY, 03-12-2011 [facility] [place] UNSPECIFIED URGENT TREATMENT A 88729 INSOMNIA 03-12-2011 [facility] [place] UNSPECIFIED URGENT TREATMENT A 514 PULMONARY 03-02-2011 EXPRESS CONGESTION MOBILE AND DIAGNOSTIC HYPOSTASIS SE 7242 LUMBAGO 02-25-2011 [facility] [place] URGENT TREATMENT A 7245 UNSPECIFIED 02-10-2011 [facility] V771 SCREENING 02-10-2011 [facility] DIABETES OF [place] PS MELLITUS 5968 OTHER 12-28-2010 [facility] [place] SPECIFIED RADIOLOGY DISORDERS OF BLADDER 73223 DIARRHEA 12-28-2010 [facility] M [...] 00 RE 32 ES 44 17 17 MS IU 9 PH CH M AR AE CI MA L TR CY S AT E LL SO C BRYAN TI ON ST 00 03 10 0 30 30 ME 15 GA Ac OO 53 -1 -0 0. D 04 IN ti L 61 9- 2- 00 CA 39 EY ve SO 06 20 20 0 RE 09 FT 41 17 17 MS EN 0 PH CH ER AR AE MA L 25 CY S 0 MG LL C SO FT GE L LO 00 03 10 0 30 30 ME 15 GA Ac RA 78 -1 -0 0. D 04 IN ti TA 15 9- 2- 00 CA 39 EY ve DI 07 20 20 0 RE 10 NE 70 17 17 MS 1 PH CH 10 AR AE MA L MG CY S TA LL BL C ET BRYAN 00 03 09 0 30 7 ME 15 GA Ac BR 90 -1 -2 0. D 04 IN ti IC 46 8- 9- 00 CA 01 EY ve AT 32 20 20 0 RE 54 IN 94 17 17 MS G [address] AR AE US MA L CY S 0. 5% LL C EY E DR PS 00 03 09 0 30 30 ME 15 GA Ac PI 90 -1 -2 0. D 00 IN ti RI 46 9- 6- 00 CA 60 EY ve N 28 20 20 0 RE 67 81 88 17 17 MS 9 PH CH MG AR AE MA L CH CY S EW AB LL LE C TA BL ET MA 00 06 09 0 30 30 ME 14 GA Ac GN 60 -2 -1 0. D 94 IN ti ES 30 1- 5- 00 CA 75 EY ve IU 20 20 20 0 RE 67 M 92 17 17 MS OX 2 PH CH ID AR AE E MA L 40 CY S 0 MG LL C TA BL ET AC 00 03 09 0 35 15 ME 14 GA Ac ID 90 -0 -1 50 D 96 IN ti 47 4- 5- .0 CA 35 EY ve GO 72 20 20 00 RE 99 NE 71 17 17 MS 4 PH CH AN AR AE TA MA L CI CY S D LI LL QU C ID ST 00 03 09 0 30 30 ME 14 GA Ac OO 53 -1 -0 0. D 87 IN ti L 61 9- 2- 00 CA 29 EY ve SO 06 20 20 0 RE 28 FT 41 17 17 MS EN 0 PH CH ER AR AE MA L 25 CY S 0 MG LL C SO FT GE L LO 00 03 09 0 30 30 ME 14 GA Ac RA 78 -1 -0 0. D 87 IN ti TA 15 9- 2- 00 CA 29 EY ve DI 07 20 20 0 RE 29 NE 70 17 17 MS 1 PH CH 10 AR AE MA L MG CY S TA LL BL C ET 00 03 08 0 30 30 ME 14 GA Ac PI 90 -1 -2 0. D 83 IN ti RI 46 9- 8- 00 CA 86 EY ve N 28 20 20 0 RE 95 81 88 17 17 MS 9 PH CH MG AR AE MA L CH CY S EW AB LL LE C TA BL ET BRYAN 00 03 08 0 30 7 ME 14 GA Ac BR 90 -1 -2 0. D 82 IN ti IC 46 8- 4- 00 CA 01 EY ve AT 32 20 20 0 RE 42 IN 94 17 17 MS G [address] AR AE US MA L CY S 0. 5% LL C EY E DR PS BRYAN 00 03 08 0 30 7 ME 14 GA Ac BR 90 -1 -1 0. D 79 IN ti IC 46 8- 8 CA 87 EY ve AT 32 20 20 0 RE 03 IN 94 17 17 MS G [address] AR AE US MA L CY S 0. 5% LL C EY E DR PS MA 00 06 08 0 30 30 ME 14 GA Ac GN 60 -2 -1 0. D 77 IN ti ES 30 1- 6- 00 CA 18 EY ve IU 20 20 20 0 RE 99 M 92 17 17 MS OX 2 PH CH ID AR AE E MA L 40 CY S 0 MG LL C TA BL ET ST 00 03 08 0 30 30 ME 14 GA Ac OO 53 -1 -0 0. D 70 IN ti L 61 9- 4- 00 CA 77 EY ve SO 06 20 20 0 RE 91 FT 41 17 17 MS EN 0 PH CH ER AR AE MA L 25 CY S 0 MG LL C SO FT GE L LO 00 03 08 0 30 30 ME 14 GA Ac RA 78 -1 -0 0. D 70 IN ti TA 15 9- 4- 00 CA 77 EY ve DI 07 20 20 0 RE 92 NE 70 17 17 MS 1 PH CH 10 AR AE MA L MG CY S TA LL BL C ET 00 03 07 0 30 30 ME 14 GA Ac PI 90 -1 -3 0. D 69 IN ti RI 46 9- 1- 00 CA 21 EY ve N 28 20 20 0 RE 07 81 88 17 17 MS 9 PH CH MG AR AE MA L CH CY S EW AB LL LE C TA BL ET BRYAN 00 03 07 0 30 7 ME 14 GA Ac BR 90 -1 -2 0. D 68 IN ti IC 46 8- 9- 00 CA 73 EY ve AT 32 20 20 0 RE 52 IN 94 17 17 MS G [address] AR AE US MA L CY S 0. 5% LL C EY E DR PS MA 00 06 07 0 30 30 ME 14 GA Ac GN 60 -2 -1 0. D 63 IN ti ES 30 1- 9- 00 CA 33 EY ve IU 20 20 20 0 RE 43 M 92 17 17 MS OX 2 PH CH ID AR AE E MA L 40 CY S 0 MG LL C TA BL ET AC 00 03 07 0 35 15 ME 14 GA Ac ID 90 -0 -1 50 D 62 IN ti 47 4- 8- .0 CA 01 EY ve GO 72 20 20 00 RE 68 NE 71 17 17 MS 4 PH CH AN AR AE TA MA L CI CY S D LI LL QU C ID BRYAN 00 03 07 0 30 7 ME 14 GA Ac BR 90 -1 -1 0. D 60 IN ti IC 46 8- 5- 00 CA 60 EY ve AT 32 20 20 0 RE 69 IN 94 17 17 MS G [address] AR AE US MA L CY S 0. 5% LL C EY E PS ST 00 03 07 0 30 30 ME 14 GA Ac OO 53 -1 -0 0. D 53 IN ti L 61 9- 6- 00 CA 43 EY ve SO 06 20 20 0 RE 01 FT 41 17 17 MS EN 0 PH CH ER AR AE MA L 25 CY S 0 MG LL C SO FT GE L LO 00 03 07 0 30 30 ME 14 GA Ac RA 78 -1 -0 0. D 53 IN ti TA 15 9- 6- 00 CA 43 EY ve DI 07 20 20 0 RE 02 NE 70 17 17 MS 1 PH CH 10 AR AE MA L MG CY S TA LL BL C ET 00 03 07 0 30 30 ME 14 GA Ac PI 90 -1 -0 0. D 50 IN ti RI 46 9- 3- 00 CA 60 EY ve N 28 20 20 0 RE 43 81 88 17 17 MS 9 PH CH MG AR AE MA L CH CY S EW AB LL LE C TA BL ET BRYAN 00 03 06 0 30 7 ME 14 GA Ac BR 90 -1 -3 0. D 50 IN ti IC 46 8- 0- 00 CA 79 EY ve AT 32 20 20 0 RE 90 IN 94 17 17 MS G [address] AR AE US MA L CY S 0. 5% LL C EY E DR PS BRYAN 00 03 06 0 30 7 ME 14 GA Ac BR 90 -1 -1 0. D 42 IN ti IC 46 8- 7- 00 CA 66 EY ve AT 32 20 20 0 RE 58 IN 94 17 17 MS G [address] AR AE US MA L CY S 0. 5% LL C EY E DR PS AC 00 03 06 0 35 15 ME 14 GA Ac ID 90 -0 -1 50 D 41 IN ti 47 4- 6- .0 CA 27 EY ve GO 72 20 20 00 RE 46 NE 71 17 17 MS 4 PH CH AN AR AE TA MA L CI CY S D LI LL QU C ID ST 00 03 06 0 30 30 ME 14 GA Ac OO 53 -1 -0 0. D 33 IN ti L 61 9- 7- 00 CA 82 EY ve SO 06 20 20 0 RE 41 FT 41 17 17 MS EN 0 PH CH ER AR AE MA L 25 CY S 0 MG LL C SO FT GE L LO 00 03 06 0 30 30 ME 14 GA Ac RA 78 -1 -0 0. D 33 IN ti TA 15 9- 7- 00 CA 82 EY ve DI 07 20 20 0 RE 42 NE 70 17 17 MS 1 PH CH 10 AR AE MA L MG CY S TA LL BL C ET RO 00 03 06 0 47 10 ME 14 GA Ac BA 90 -1 -0 30 D 33 IN ti FE 40 9- 5- .0 CA 30 EY ve N 06 20 20 00 RE 41 10 11 17 17 MS 0 6 PH CH MG AR AE /5 MA L CY S ML LL SY C RU P 00 03 06 0 30 30 ME 14 GA Ac PI 90 -1 -0 0. D 31 IN ti RI 46 9- 3- 00 CA 43 EY ve N 28 20 20 0 RE 67 81 88 17 17 MS 9 PH CH MG AR AE MA L CH CY S EW AB LL LE C TA BL ET MA 00 03 06 0 30 5 ME 14 GA Ac PA 90 -1 -0 0. D 31 IN ti P 41 9- 2- 00 CA 57 EY ve 50 98 20 20 0 RE 45 0 86 17 17 MS MG 1 PH CH AR AE TA MA L BL CY S ET LL C MA 00 12 05 0 30 30 ME 14 GA Ac GN 60 -0 -2 0. D 24 IN ti ES 30 3- 4- 00 CA 08 EY ve IU 20 20 20 0 RE 98 M 92 16 17 MS OX 2 PH CH ID AR AE E MA L 40 CY S 0 MG LL C TA BL ET BRYAN 00 03 05 0 50 7 ME 14 GA Ac BR 90 -1 -2 0. D 23 IN ti IC 46 8- 2- 00 CA 59 EY ve AT 32 20 20 0 RE 61 IN 95 17 17 MS G [address] AR AE US MA L CY S 0. 5% LL C EY E DR PS AC 00 03 05 0 35 15 ME 14 GA Ac ID 90 -0 -1 50 D 22 IN ti 47 4- 8- .0 CA 17 EY ve GO 72 20 20 00 RE 35 NE 71 17 17 MS 4 PH CH AN AR AE TA MA L CI CY S D LI LL QU C ID ST 00 03 05 0 30 30 ME 14 GA Ac OO 53 -1 -1 0. D 17 IN ti L 61 9- 0- 00 CA 23 EY ve SO 06 20 20 0 RE 20 FT 41 17 17 MS EN 0 PH CH ER AR AE MA L 25 CY S 0 MG LL C SO FT GE L LO 00 03 05 0 30 30 ME 14 GA Ac RA 78 -1 -1 0. D 17 IN ti TA 15 9- 0- 00 CA 23 EY ve DI 07 20 20 0 RE 21 NE 70 17 17 MS 1 PH CH 10 AR AE MA L MG CY S TA LL BL C ET 00 03 05 0 30 30 ME 14 GA Ac PI 90 -1 -0 0. D 14 IN ti RI 46 9- 5- 00 CA 96 EY ve N 28 20 20 0 RE 45 81 88 17 17 MS 9 PH CH MG AR AE MA L CH CY S EW AB LL LE C TA BL ET BRYAN 00 03 05 0 30 7 ME 14 GA Ac BR 90 -1 -0 0. D 15 IN ti IC 46 8- 5- 00 CA 88 EY ve AT 32 20 20 0 RE 83 IN 94 17 17 MS G [address] AR AE US MA L CY S 0. 5% LL C EY E DR PS MA 00 12 04 0 30 30 ME 14 GA Ac GN 60 -0 -2 0. D 09 IN ti ES 30 3- 6- 00 CA 84 EY ve IU 20 20 20 0 RE 88 M 92 16 17 MS OX 2 PH CH ID AR AE [...] AR AR ME MA D CY W IN OT LL EC C T PA ST E RE 53 11 11 0 11 5 ME 13 AR Ac ME 32 -2 -2 30 D 36 NO ti DY 90 8- 8- .0 CA 88 LD ve 16 20 20 00 RE 63 CA 54 16 16 RI LA 4 PH CH ZI AR AR ME MA D CY W IN OT LL EC C T PA ST [...] AR AR ME MA D CY W IN OT LL EC C T PA ST [...] AR AR ME MA D CY W IN OT LL EC C T PA ST [...] AR AR ME MA D CY W IN OT LL EC C T PA ST [...] AR AR ME MA D CY W IN OT LL EC C T PA ST [...] TA CY W BL ET LL C IN 37 08 10 3 30 30 ME [...] TA CY W BL ET LL C IN 37 08 09 3 30 30 ME [...] D BL CY W ET LL C IN 37 08 08 3 30 30 ME [...] Location Performer Comment J CARLOS V [id number] [address] DIRECT CASTING OPERATOR/URN ASSOCIATE ASSOCIATE [place] CATH S S IND SNF/LAB BHALF PHARMACY ACCOUNT DIRECTOR BLOOD [id number] HEMOGLOBI ASSOCIATE ASSOCIATE N S S BLOOD [address] HEMATOCRI ASSOCIATE ASSOCIATE T S S TRAVEL [address] NEC FOREST ENGINEER ASSOCIATE SPEC; S S PRORAT ACTL MILE COLOREC G0328 LAURA SANCHEZ AL SCR; 7 [facility] FOB TST INC INC IMMUNO 1-3 SIMULTANE OUS URNLS DIP 08529 [facility]ANCHE[facility] STICK/TAB INC INC LET REAGENT AUTO MICROSCOP Y TRAVEL [phone] NEC FOREST ENGINEER ASSOCIATE SPEC; S S PRORAT ACTL MILE PRTBLE E0434 MARLYN CLINE LQD O2 7 [facility] HEALTHCAR SYS RENT; E E RESRVOR HUMIDFR FLWMTR J CARLOS V G0471 [address] DIRECT CASTING OPERATOR/URN ASSOCIATE ASSOCIATE [place] CATH S S IND SNF/LAB BHALF PHARMACY ACCOUNT DIRECTOR BLOOD [address] COMPLETE ASSOCIATE ASSOCIATE AUTO&AUTO S S DIFRNTL WBC O2 CONC 1 E1390 MARLYN CLINE [place] 7 [facility] HEALTHCAR 85%/>02 E E CONC AT [facility] [place] SOFT 489[address] [place] ORDONEZ TISSUE 7 MEDICAL NECK W/O IMAGING CONTRAST ASS MATERIAL BLOOD [address] COMPLETE ASSOCIATE ASSOCIATE AUTO&AUTO S S DIFRNTL WBC CT THORAX 55371 [place] ORDONEZ W/O 7 MEDICAL CONTRAST IMAGING MATERIAL ASS J CARLOS V G0471 [address] DIRECT CASTING OPERATOR/URN ASSOCIATE ASSOCIATE [place] CATH S S IND SNF/LAB BHALF PHARMACY ACCOUNT DIRECTOR TRAVEL [address] NEC FOREST ENGINEER ASSOCIATE SPEC; S S PRORAT ACTL MILE HEMOGLOBI [address] HEALTH GLYCOSYLA ASSOCIATE ASSOCIATE COURT A1C S S J CARLOS V G0471 [address] DIRECT CASTING OPERATOR/URN ASSOCIATE ASSOCIATE [place] SANCHEZ S S IND SNF/LAB BHALF [place] [address] [facility] THYROID [address] [place] [address] STIMULATI ASSOCIATE ASSOCIATE NG S S HORMONE TSH TRAVEL [address] NEC FOREST ENGINEER ASSOCIATE SPEC; S S PRORAT ACTL MILE URNLS DIP 08894 LAURA LEAL [address] [place] [address] LET RGNT P NON-AUTO W/O MICRSCP O2 CONC 1 E1390 [place] [address] HEALTHCAR HEALTHCAR 85%/>02 E E CONC AT PRSC FLW RATE O2 CONC 1 E1390 [facility] [place] [address] HEALTHCAR HEALTHCAR 85%/>02 E E CONC AT PRSC FLW RATE DEBRIDEME 57001 SPECIAL SKRIP JR. NT NAIL 7 CARE ANY PODIATRY METHOD OF YAMIL / J CARLOS V G[address] HEALTH DIRECT CASTING OPERATOR/URN ASSOCIATE ASSOCIATE [place] SANCHEZ S S IND SNF/LAB BHALF PHARMACY ACCOUNT DIRECTOR LIPID [address] [place] [address] HEALTH HEALTH ASSOCIATE ASSOCIATE S S TRAVEL [address] NEC FOREST ENGINEER ASSOCIATE SPEC; S S PRORAT ACTL MILE NONEMERGE A0130 FEDERATED FEDERATED NCY 7 TRANS TRANSPORT TRANSPORT SERVBLUEG ATION: ATION SER TOSHA KAVITHA Dobson VAN SET-UP Q0092 [facility] PORTABLE 7 [facility] X-RAY EQUIPMENT RADIOLOGI 11134 [facility] C 7 [facility] EXAMINATI ON FEMUR MINIMUM 2 VIEWS TRANS R0070 [facility] PRTBL 7 [facility] X-RAY EQP&PERS RICHMOND/NRS RICHMOND-TRIP 1 PT RADIOLOGI 83465 [facility] C 7 LLC LLC EXAMINATI ON KNEE 1/2 VIEWS RADIOLOGI 99478 [facility] EXAMINATI ON TIBIA & FIBULA 2 VIEWS BLOOD 85848 STATELESS STATELESS COUNT 7 HEALTH HEALTH COMPLETE ASSOCIATE ASSOCIATE AUTO&AUTO S S DIFRNTL WBC J CARLOS V G0471 STATELESS STATELESS BLD 7 HEALTH HEALTH DIRECT CASTING OPERATOR/URN ASSOCIATE ASSOCIATE SMP CATH S S IND SNF/LAB BHALF PHARMACY ACCOUNT DIRECTOR COMPREHEN 81821 STATELESS STATELESS SIVE 7 HEALTH HEALTH METABOLIC ASSOCIATE ASSOCIATE PANEL S S TRAVEL 1 P9603 STATELESS STATELESS [facility] 7 HEALTH HEALTH NEC FOREST ENGINEER ASSOCIATE SPEC; S S PRORAT ACTL MILE URNLS DIP 36020 LAURA SANCHEZ 7 [facility] H[facility] STICK/TAB INC INC LET REAGENT AUTO MICROSCOP Y SET-UP Q0092 [facility] PORTABLE 7 [facility] X-RAY EQUIPMENT TRANS R0070 [facility] PRTBL 7 [facility] LLC X-RAY EQP&PERS RICHMOND/NRS RICHMOND-TRIP 1 PT RADIOLOGI 42193 [facility] C 7 LLC LLC EXAMINATI ON CHEST SINGLE VIEW FRONTAL RADEX 40233 [place] ORDONEZ WRIST 7 MEDICAL COMPLETE IMAGING MINIMUM 3 ASS VIEWS O2 CONC 1 E1390 [facility] 7 HEALTHCAR HEALTHCAR 85%/>02 E E CONC AT [facility] FLW RATE RADEX 27221 [facility] WRIST 7 LLC LLC COMPLETE MINIMUM 3 VIEWS RADEX 14511 [facility] FOREARM 2 7 LLC LLC VIEWS TRANS R0070 [facility] PRTBL 7 LLC LLC X-RAY EQP&PERS RICHMOND/NRS RICHMOND-TRIP 1 PT SET-UP Q0092 [facility] PORTABLE 7 [facility] LLC X-RAY EQUIPMENT NONEMERGE A0130 FEDERATED FEDERATED NCY 7 TRANS TRANSPORT TRANSPORT SERVBLUEG ATION: ATION SER TOSHA SOSA A0130 FEDERATED FEDERATED NCY 7 TRANS TRANSPORT TRANSPORT SERVBLUEG ATION: ATION SER TOSHA Dobson VAN TRAVEL [phone] HEALTH NEC FOREST ENGINEER ASSOCIATE SPEC; S S PRORAT ACTL MILVandana NATRIURET [address] [place] [address] HEALTH HEALTH PEPTIDE ASSOCIATE ASSOCIATE S S J CARLOS V G0471 [facility] BLD [address] [place] [address] HEALTH DIRECT CASTING OPERATOR/URN ASSOCIATE ASSOCIATE SMP CATH S S IND SNF/LAB BHALF PHARMACY ACCOUNT DIRECTOR ECG 24614 [facility] ROUTINE 7 PHYSICIAN ECG S GROUP W/LEAST 12 LDS I&R ONLY ECG 77639 LAURA SANCHEZ ROUTINE 7 [facility] ECG INC INC W/LEAST 12 LDS TRCG ONLY W/O I&R NONEMERGE A0130 FEDERATED FEDERATED NCY 7 TRANS TRANSPORT TRANSPORT SERVBLUEG ATION: ATION SER OTSHA RAMIREZ URNLS DIP [address] STICK/TAB ASSOCIATE ASSOCIATE LET S S REAGENT AUTO MICROSCOP Y CULTURE [address] HEALTH ASSOCIATE ASSOCIATE QUANTTATI S S VE COLONY COUNT URINE NONEMERGE A0130 FEDERATED FEDERATED NCY 7 TRANS TRANSPORT TRANSPORT SERVBLUEG ATION: ATION SER TOSHA RAMIREZ O2 CONC 1 E1390 [place] [address] [facility] HEALTHCAR 85%/>02 E E CONC AT [facility] FLW RATE BRNCDILAT 17995 LAURA SANCHEZ RSPSE 7 MEM H[facility] SPMTRY INC INC PRE&POST- BRNCDILAT ADMN PRESSURIZ 79803 LAURA SANCHEZ ED/NONPRE 7 [facility] SSURIZED INC INC INHALATIO N TREATMENT NONEMERGE A0130 FEDERATED FEDERATED NCY 7 TRANS TRANSPORT TRANSPORT SERVBLUEG ATION: ATION SER TOSHA RAMIREZ GAS 24525 LAURA SANCHEZ DILUT/WAS 7 [facility] HOUT LUNG INC INC VOL W/WO DISTRIB VENT&[place] [address] LAURA SANCHEZ DIFFUSING 7 [facility] CAPACITY INC INC URNLS DIP 05991 LAURA MEL 7 [facility] STICK/TAB HOSPITAL LET RGNT P NON-AUTO W/O MICRSCP NONEMERGE A0130 FEDERATED FEDERATED NCY 7 TRANS TRANSPORT TRANSPORT SERVBLUEG ATION: ATION SER TOSHA Dobson VAN CULTURE 01900 LAURA SANCHEZ BCT 7 [facility] ISOL&PRSM INC INC PTV ID ISOLATE EA URINE CULTURE 45841 LAURA SANCHEZ BACTERIAL 7 [facility] INC INC QUANTTATI VE COLONY COUNT URINE SUSCEPTIB 32708 LAURA SANCHEZ LTY STDY 7 MEM HOS[facility]OS[facility] ANTIMICRB INC INC IAL MICRO/AGA R DILUTJ O2 CONC 1 E1390 [facility] HEALTH[facility] HEALTHCAR 85%/>02 E E CONC AT [facility] FLW RATE RADEX 20655 LAURA SANCHEZ SHOULDER 7 [facility] COMPLETE INC INC MINIMUM 2 VIEWS NONEMERGE A0130 FEDERATED FEDERATED NCY 7 TRANS TRANSPORT TRANSPORT SERVBLUEG ATION: ATION SER TOSHA RAMIREZ FOR DIAB A5512 [facility] ONLY MX 7 MEDICAL MEDICAL DNSITY SUPPLY SUPPLY INSRT DIR [facility] FORMD PRFAB EA DIAB ONLY A5500 [facility] [place] FIT CSTM 7 MEDICAL MEDICAL PREP&SPL SUPPLY SUPPLY SHOE MX [facility] LLC DNSITY INSRT URNLS DIP 07898 LAURA SANCHEZ 7 [facility] H[facility] STICK/TAB INC INC LET REAGENT AUTO MICROSCOP Y DEBRIDEME 18086 SPECIAL SKRIP JR. NT NAIL 7 CARE ANY PODIATRY METHOD OF YAMIL 6/> NONEMERGE A0130 FEDERATED FEDERATED NCY 7 TRANS TRANSPORT TRANSPORT SERVBLUEG ATION: ATION SER TOSHA RAMIREZ SET-UP Q0092 [facility] PORTABLE 7 [facility] X-RAY EQUIPMENT TRANS R0070 [facility] 7 [facility] X-RAY EQP&PERS RICHMOND/NRS RICHMOND-TRIP 1 PT RADEX 09016 [facility] SHOULDER 7 LLC LLC COMPLETE MINIMUM 2 VIEWS RADIOLOGI 79089 [facility] C 7 LLC LLC EXAMINATI ON CHEST SINGLE VIEW FRONTAL TRANS R0070 [facility] PRTBL 7 LLC LLC X-RAY EQP&PERS RICHMOND/NRS RICHMOND-TRIP 1 PT SET-UP Q0092 [facility] PORTABLE 7 LLC LLC X-RAY EQUIPMENT SET-UP Q0092 [facility] PORTABLE 7 LLC LLC X-RAY EQUIPMENT TRANS R0075 [facility] PRTBL 7 LLC LLC XRAY EQP&PERS RICHMOND/NRS RICHMOND-TRIP> 1 PT RADIOLOGI 68799 [facility] C 7 LLC LLC EXAMINATI ON CHEST SINGLE VIEW FRONTAL O2 CONC 1 E1390 [facility] 7 HEALTHCAR HEALTHCAR 85%/>02 E E CONC AT PRSC FLW RATE BLOOD 68933 STATELESS STATELESS COUNT 7 HEALTH HEALTH COMPLETE ASSOCIATE ASSOCIATE AUTO&AUTO S S DIFRNTL WBC J CARLOS V G0471 STATELESS STATELESS BLD 7 HEALTH HEALTH DIRECT CASTING OPERATOR/URN ASSOCIATE ASSOCIATE SMP CATH S S IND SNF/LAB BHALF PHARMACY ACCOUNT DIRECTOR BASIC 50870 STATELESS STATELESS METABOLIC 7 HEALTH HEALTH PANEL ASSOCIATE ASSOCIATE CALCIUM S S TOTAL TRAVEL 1 P9603 [facility] 7 HEALTH HEALTH NEC FOREST ENGINEER ASSOCIATE SPEC; S S PRORAT ACTL MILE NONEMERGE A0130 FEDERATED FEDERATED NCY 7 TRANS TRANSPORT TRANSPORT SERVBLUEG ATION: ATION SER TOSHA WHEELCHAI R VAN ECG 84668 [facility] ROUTINE 7 PHYSICIAN ECG S GROUP W/LEAST 12 LDS I&R ONLY ECG 35580 LAURA SANCHEZ ROUTINE 7 [facility] ECG INC INC W/LEAST 12 LDS TRCG ONLY W/O I&R O2 CONC 1 E1390 [facility] 7 HEALTHCAR HEALTHCAR 85%/>02 E E CONC AT PRSC FLW RATE AMBULANCE A0428 [facility] SERVICE 7 AMBULANCE AMBULANCE BLS SERVICE SERVICE NONEMERGE NCY TRANSPORT GROUND A0425 [facility] MILEAGE 7 AMBULANCE AMBULANCE PER SERVICE SERVICE STATUTE MILE GROUND A0425 [facility] MILEAGE 7 AMBULANCE AMBULANCE PER SERVICE SERVICE STATUTE MILE AMB A0427 [facility]ICE 7 AMBULANCE AMBULANCE ALS SERVICE SERVICE EMERGENCY TRANSPORT LEVEL 1 ECG 24110 LAURA HOLCOMB ROUTINE 7 [facility] W/LEAST P 12 LDS I&R ONLY RADIOLOGI 17023 [place] ORDONEZ C 7 MEDICAL EXAMINATI IMAGING ON CHEST ASS SINGLE VIEW FRONTAL ECG 54604 [facility] ROUTINE 7 HEALTHCAR HEALTHCAR ECG E E W/LEAST [facility] 12 [facility] TRCG ONLY W/O I&R HOSPITAL G0463 [facility] OUTPATIEN 7 HEALTHCAR HEALTHCAR T CLIN E E VISIT [facility] ASSESS & MGMT PT NONEMERGE A0130 FEDERATED FEDERATED NCY 7 TRANS TRANSPORT TRANSPORT SERVBLUEG ATION: ATION SER TOSHA WHEELCHAI R VAN VISUAL 88827 [facility] 7 MEDICAL UNI/BI SERV W/INTERP FOUNDATIO EXTENDED N EXAM DEBRIDEME 85405 SPECIAL RIFrancisco . NT NAIL 7 CARE ANY PODIATRY METHOD OF YAMIL 6/> O2 CONC 1 E1390 [facility] CLINE [place] 7 HEALTHCAR HEALTHCAR 85%/>02 E E CONC AT PRSC FLW RATE O2 CONC 1 E1390 MAR[facility]N CLINE [place] 6 HEALTHCAR HEALTHCAR 85%/>02 E E CONC AT PRSC FLW RATE POLYSOM 98879 LAURA SANCHEZ 6/>YRS 6 MEM H[facility] SLEEP INC INC W/CPAP 4/> ADDL KATARINA ATTND NONEMERG A0120 FEDERATED FEDERATED TRNSPRT: 6 MINI-BUS TRANSPORT TRANSPORT MTN [facility] SER AREA/OTH SYS O2 CONC 1 E1390 MAR[facility]N CLINE [place] 6 HEALTHCAR HEALTHCAR 85%/>02 E E CONC AT PRSC FLW RATE J CARLOS V G0471 STATELESS STATELESS BLD 6 HEALTH HEALTH DIRECT CASTING OPERATOR/URN ASSOCIATE ASSOCIATE SMFrancisco CATH S S IND SNF/LAB BHALF PHARMACY ACCOUNT DIRECTOR TRAVEL [address] MED 6 HEALTH HEALTH NEC FOREST ENGINEER ASSOCIATE SPEC; S S PRORAT ACTL MILE BASIC 81193 STATELESS STATELESS METABOLIC 6 HEALTH HEALTH PANEL ASSOCIATE ASSOCIATE CALCIUM S S TOTAL DEBRIDEME 07918 SPECIAL SKRIP JR. NT NAIL 6 CARE SELVIN ANY PODIATRY METHOD OF YAMIL 6/> O2 CONC 1 E1390 [place] [address] HEALTHCAR HEALTHCAR 85%/>02 E E CONC AT PRS FLW RATE ECG 66788 LAURA SANCHEZ ROUTINE 6 [facility] ECG INC INC W/LEAST 12 LDS TRCG ONLY W/O I&R ECG 64550 [facility] ROUTINE 6 PHYSICIAN MAT ECG S GROUP W/LEAST 12 LDS I&R ONLY ECG 56391 LAURA ZARCO JR ROUTINE 6 [facility] W/LEAST P 12 LDS I&R ONLY RADIOLOGI 91344 [facility] C EXAM 6 MEDICAL KIERAN CHEST 2 IMAGING VIEWS ASS FRONTAL&L ATERAL O2 CONC 1 E1390 [place] [address] HEALTHCAR HEALTHCAR 85%/>02 E E CONC AT PRSC FLW RATE RADEX 72691 [facility] ALL SPINE 6 MEDICAL THORACIC IMAGING 2 VIEWS ASS RADEX 52236 [facility] ALL SPINE 6 MEDICAL LUMBOSACR IMAGING AL 2/3 ASS VIEWS RADEX 88366 [facility] ALL SPINE 6 MEDICAL CERVICAL IMAGING 2 OR 3 ASS VIEWS ECG 98012 [facility] PHYSICIAN MAT ECG S GROUP W/LEAST 12 LDS I&R ONLY NONEMERG A0120 FEDERATED FEDERATED TRNSPRT: 6 MINI-BUS TRANSPORT TRANSPORT MTN ATION SER ATION SER AREA/OTH SYS NONEMERG A0120 FEDERATED FEDERATED TRNSPRT: 6 MINI-BUS TRANSPORT TRANSPORT MTN ATION SER ATION SER AREA/OTH SYS ECG 02349 [facility] ROUTINE 6 PHYSICIAN MAT ECG S GROUP W/LEAST 12 LDS I&R ONLY ECG 40837 LAURA HOLCOMB ROUTINE 6 [facility] W/LEAST P 12 LDS I&R ONLY PC C9600 TAWNYA BOWLING TRNSCTH 6 W W PLCMT RX [facility] MEDICAL MEDICAL STENTS; 1 CHRISTINE CA/BR PRQ 64847 [facility] TRLUML 6 PHYSICIAN MAT CORONARY S GROUP STENT W/ANGIO ONE ART/BRNCH NONEMERG A0120 FEDERATED FEDERATED TRNSPRT: 6 MINI-BUS TRANSPORT TRANSPORT MTN ATION SER ATION SER AREA/OTH SYS ECG 96690 LAURA HOLCOMB ROUTINE 6 [facility] W/LEAST P 12 LDS I&R ONLY RADEX 23184 LAURA SANCHEZ WRIST 6 [facility] COMPLETE INC INC MINIMUM 3 VIEWS NONEMERG A0120 FEDERATED FEDERATED TRNSPRT: 6 MINI-BUS TRANSPORT TRANSPORT MTN ATION SER ATION SER AREA/OTH SYS RADIOLOGI 81358 [facility] ALL C 6 MEDICAL EXAMINATI IMAGING ON CHEST ASS SINGLE VIEW FRONTAL NONEMERG A0120 FEDERATED FEDERATED TRNSPRT: 6 MINI-BUS TRANSPORT TRANSPORT MTN ATION SER ATION SER AREA/OTH SYS NONEMERG A0120 FEDERATED FEDERATED TRNSPRT: 6 MINI-BUS TRANSPORT TRANSPORT MTN ATION SER ATION SER AREA/OTH SYS RADIOLOGI 65053 [facility] ALL C 6 MEDICAL EXAMINATI IMAGING ON [...] 6 MINI-BUS TRANSPORT TRANSPORT [facility] 68995 [facility] DISCHARGE 6 PHYSICIAN MAT DAY S GROUP MANAGEMEN T 30 MIN/< PC C9600 TAWNYA BOWLING TRNSCTH 6 W W PLCMT RX [facility] MEDICAL MEDICAL STENTS; 1 CHRISTINE CA/BR PRQ 41011 [facility] TRLUML 6 PHYSICIAN MAT CORONARY S GROUP STENT W/ANGIO ONE ART/BRNCH NONEMERG A0120 FEDERATED FEDERATED TRNSPRT: 6 MINI-BUS TRANSPORT TRANSPORT MTN [facility] NONEMERG A0120 FEDERATED FEDERATED TRNSPRT: 6 MINI-BUS TRANSPORT TRANSPORT MTN [facility] ECHO 50283 LAURA SANCHEZ TTHRC R-T 6 [facility] 2D INC INC W/WOM-MOD E COMPL SPEC&COLR D NONEMERG A0120 FEDERATED FEDERATED TRNSPRT: 6 MINI-BUS TRANSPORT TRANSPORT MTN ATVERONICA SER MACEY [facility] [place] [address] [place] ALEISHA HEAD/BRAI 6 MEDICAL KIERAN N W/O IMAGING CONTRAST ASS MATERIAL ECG 42257 LAURA AICHA ROUTINE 6 [facility] W/LEAST P 12 LDS I&[place] [address] [place] BEINEKE CERVICAL 6 MEDICAL GILMA SPINE W/O IMAGING CONTRAST ASS MATERIAL RADEX 76454 [place] BEBANNERKE SPINE 6 MEDICAL GILMA LUMBOSACR IMAGING AL 2/3 ASS VIEWS RADIOLOGI 11555 [place] ALEISHA C 6 MEDICAL KIERAN EXAMINATI IMAGING ON CHEST ASS SINGLE VIEW FRONTAL RADEX 97327 [place] BEINEKE SPINE 6 MEDICAL GILMA THORACIC IMAGING 2 VIEWS ASS NONEMERG A0120 FEDERATED FEDERATED TRNSPRT: 6 MINI-BUS TRANSPORT TRANSPORT MTN ATVERONICA SER MACEY [facility]OT SYS NONEMERG A0120 FEDERATED FEDERATED TRNSPRT: 6 MINI-BUS TRANSPORT TRANSPORT [facility] RADIOLOGI 22614 [place] ORDONEZ ALL C 6 MEDICAL EXAMINATI IMAGING ON CHEST ASS SINGLE VIEW FRONTAL ECG 10905 [facility] ROUTINE 6 CULAR MAT ECG CONSULTAN W/LEAST TS O 12 LDS I&R ONLY NONEMERG A0120 FEDERATED FEDERATED TRNSPRT: 6 MINI-BUS TRANSPORT TRANSPORT [facility] RADIOLOGI 20521 [place] ORDONEZ ALL C 6 MEDICAL EXAMINATI IMAGING ON CHEST ASS SINGLE VIEW FRONTAL NONEMERG A0120 FEDERATED FEDERATED TRNSPRT: 6 MINI-BUS TRANSPORT TRANSPORT [facility] NONEMER A0120 FEDERATED FEDERATED TRNSPRT: 5 MINI-BUS TRANSPORT TRANSPORT [facility] [address]34 [facility] 5 JEANIE JEANIE DAY MANAGEMEN T 30 MIN/< SBSQ 12367 [facility] 5 JEANIE JEANIE CARE/DAY 25 MINUTES SBSQ 57219 [facility] 5 JEANIE JEANIE CARE/DAY 25 MINUTES SBSQ 80513 [facility] 5 JEANIE JEANIE CARE/DAY 25 MINUTES SBSQ 56754 [facility] 5 JEANIE JEANIE CARE/DAY 25 MINUTES SBSQ 63601 [facility] 5 JEANIE JEANIE CARE/DAY 25 MINUTES SBSQ 79151 [facility] 5 JEANIE JEANIE CARE/DAY [address] THORAX 68349 [place] [facility] [place] 5 MEDICAL GILMA W/CONTRAS IMAGING T ASS MATERIAL RADIOLOGI 59791 [facility] 5 MEDICAL GILMA EXAMINATI IMAGING ON CHEST ASS SINGLE VIEW FRONTAL INITIAL 49535 [facility] 5 JEANIE JEANIE CARE/DAY 50 MINUTES RADEX 96261 [place] MERY ALL FINGR 5 MEDICAL MINIMUM 2 IMAGING VIEWS ASS URNLS DIP 11271 LAURA SANCHEZ 5 [facility] STICK/TAB INC INC LET REAGENT AUTO MICROSCOP Y NONEMERG A0120 FEDERATED FEDERATED TRNSPRT: 5 MINI-BUS TRANSPORT [facility] NONEMERG A0120 FEDERATED FEDERATED TRNSPRT: 5 MINI-BUS TRANSPORT [facility] 04785 LAURA SANCHEZ ROUTINE 5 [facility] ECG INC INC W/LEAST 12 LDS TRCG ONLY W/O I&R ECG 88330 CARDIOVAS MEREDITH ROUTINE 5 CULAR MAT ECG CONSULTAN W/LEAST TS O 12 LDS I&R ONLY NONEMERG A0120 FEDERATED FEDERATED TRNSPRT: 5 MINI-BUS TRANSPORT [facility]SPORT [facility] NONEMERG A0120 FEDERATED FEDERATED TRNSPRT: 5 MINI-BUS TRANSPORT [facility] CONTINUOU E0601 [facility] S 5 POSITIVE AIRWAY PRESSURE DEVICE NONEMERG A0120 FEDERATED FEDERATED TRNSPRT: 5 MINI-BUS TRANSPORT [facility] R & L HRT 15625 CARDIOVAS MEREDITH CATH 5 CULAR MAT WINJX HRT CONSULTAN ART& L TS O VENTR IMG RADIOLOGI 32317 [place] ALEISHA C 5 MEDICAL KIERAN EXAMINATI IMAGING [place] [address] [place] ALEISHA ABDOMEN & 5 MEDICAL KIERAN PELVIS IMAGING W/O ASS CONTRAST MATERIAL RADIOLOGI 32041 [place] ALEISHA C 5 MEDICAL KIERAN EXAMINATI IMAGING ON PELVIS ASS 1/2 VIEWS RADIOLOGI 12899 [place] ALEISHA C 5 MEDICAL KIERAN EXAMINATI IMAGING [place] [address] [place] ALEISHA THORACIC 5 MEDICAL KIERAN SPINE W/[place] [address] [place] ALEISHA CERVICAL 5 MEDICAL KIERAN SPINE W/O IMAGING CONTRAST ASS MATERIAL NONEMERG A0120 FEDERATED FEDERATED TRNSPRT: 5 MINI-BUS TRANSPORT TRANSPORT MTN ATION SER ATION SER AREA/OTH SYS RADIOLOGI 30923 [place] BEINE C EXAM 5 MEDICAL GILMA CHEST 2 IMAGING VIEWS ASS FRONTAL&L ATERAL ECHO 78445 LAURA SANCHEZ TTHRC R-T 5 [facility] [...] ATION; ATION SER ATION SER TAXI RADEX 12057 [place] ALEISHA RIBS UNI 5 MEDICAL KIERAN W/POSTERO [...] FEDERATED TRNSPRT: 4 TRANS [facility] TRANSPORT [facility]BLUEG [facility] SER TOSHA AREA/OTH SYS NONEMERG A0120 FEDERATED FEDERATED TRNSPRT: 4 TRANS [facility] TRANSPORT [facility]UE[facility] SER TOSHA AREA/[place] [address] [facility] SACHI ABDOMEN & 4 MEDICAL GILMA PELVIS IMAGING W/CONTRAS ASS T MATERIAL NONEMERG A0120 FEDERATED FEDERATED TRNSPRT: 4 TRANS [facility] TRANSPORT [facility] SER TOSHA AREA/OTH SYS NONEMERG A0120 FEDERATED FEDERATED TRNSPRT: 4 TRANS [facility] TRANSPORT [facility] SER TOSHA AREA/OTH SYS XTRNL 71427 [place] ONDINA OCULAR 4 MEDICAL SHA PHOTOG SERV W/I&R FOUNDATIO DOCMT N MEDICAL PROGRE O2 CONC 1 E1390 ARONADRIANNE KNIGHTRELL DEL PORT 4 HOME HOME 85%/>02 MEDICAL MEDICAL CONC AT EQUIPME EQUIPME PRSC FLW RATE SPMTRY 66602 LAURA SANCHEZ W/VC 4 [facility] EXPIRATOR INC INC Y MARYLOU W/WO MXML VOL VNTJ NONEMERG A0120 FEDERATED FEDERATED TRNSPRT: 4 TRANS [facility] TRANSPORT [facility] SER [place]OS[place] AREA/OTH SYS O2 CONC 1 E1390 ARON KNIGHTRELL DEL PORT 4 HOME HOME 85%/>02 MEDICAL MEDICAL CONC AT EQUIPME EQUIPME PRSC FLW RATE NONEMERG A0120 FEDERATED FEDERATED TRNSPRT: 4 TRANS [facility] TRANSPORT [facility] SER [place] AREA/OTH SYS O2 CONC 1 E1390 ARON ARON DEL PORT 4 HOME HOME 85%/>02 MEDICAL MEDICAL CONC AT EQUIPME EQUIPME PRSC FLW RATE NONEMERG A0120 FEDERATED FEDERATED TRNSPRT: 4 TRANS [facility] TRANSPORT [facility] SER [place] AREA/OTH SYS NONEMERG A0120 FEDERATED FEDERATED TRNSPRT: 4 TRANS [facility] TRANSPORT [facility] SER [place] AREA/OTH SYS O2 CONC 1 E1390 ARON KNIGHTRELL DEL PORT 4 HOME HOME 85%/>02 MEDICAL MEDICAL CONC AT EQUIPME EQUIPME PRS FLW RATE SAVAGE 39004 LAURA MATHIS JR POST-VOID 4 [facility] RESIDUAL P URINE&/BL ADDER CAP NONEMERG [...] ATION SER ATION SER AREA/OTH SYS SAVAGE 59599 LAURA MATHIS JR POST-VOID 4 [facility] RESIDUAL P URINE&/BL ADDER CAP O2 CONC 1 E1390 ARON KNIGHTRELL DEL PORT 4 HOME HOME 85%/>02 MEDICAL MEDICAL CONC AT EQUIPME EQUIPME PRS FLW RATE NONEMERG A0120 FEDERATED FEDERATED TRNSPRT: 4 MINI-BUS TRANSPORT TRANSPORT MTN ATION SER ATION SER AREA/OTH SYS NONEMERG A0120 FEDERATED FEDERATED TRNSPRT: 4 MIN[facility]-BUS TRANSPORT TRANSPORT MTN ATION SER ATION SER AREA/OTH SYS SAVAGE 91909 LAURA MATHIS JR POST-VOID 4 [facility] RESIDUAL P URINE&/BL ADDER CAP O2 CONC 1 E1390 ARON ARON DEL [place] 4 HOME HOME 85%/>02 MEDICAL MEDICAL CONC AT EQUIPME EQUIPME PRS FLW RATE NONEMERG A0120 FEDERATED FEDERATED TRNSPRT: 4 [facility]-BUS TRANSPORT TRANSPORT MTN ATION SER ATION SER AREA/OTH SYS NONEMERG A0120 FEDERATED FEDERATED TRNSPRT: 4 [facility]-BUS TRANSPORT TRANSPORT MTN ATION SER ATION SER AREA/OTH SYS 3D 21282 [place] ALEISHA RENDERING 4 MEDICAL [facility] IMAGING W/INTERP& [place] [address] LAURA SANCHEZ MAXILLOFA 4 [facility] MEM [...] ATION SER ATION SER AREA/OTH SYS RADIOLOGI 00539 LAURA SANCHEZ C EXAM 4 [facility] KNEE INC INC COMPLETE 4/MORE VIEWS RADEX 75929 LAURA SANCHEZ WRIST 4 [facility] MEM [...] 85%/>02 MEDICAL MEDICAL CONC AT EQUIPME EQUIPME [facility] FLW RATE NEUROPLAS 61303 LAURA SANCHEZ TY 3 [facility] &/TRANSPO INC INC S MEDIAN NRV CARPAL TUNNE PRESSURIZ 65012 LAURA SANCHEZ ED/NONPRE 3 [facility] SSURIZED [place] [address] LAURA SANCHEZ INFUSION 3 [facility] THERAPY/P INC INC ROPHYLAXI S /DX 1ST TO 1 HR THERAPEUT 38528 LAURA SANCHEZ IC 3 [facility] INJECTION INC [place] [address] LAURA SANCHEZ INFUSION 3 [facility] MEM [...] HOME 85%/>02 MEDICAL MEDICAL CONC AT [facility]QUIPME [facility] [place] [address] LAURA SANCHEZ INFUSION 3 [facility] THERAPY/P INC INC ROPHYLAXI S /DX 1ST TO 1 HR THERAPEUT 22380 LAURA SANCHEZ IC 3 [facility] INJECTION INC INC IV PUSH EACH NEW DRUG NEUROPLAS 37194 LAURA SANCHEZ TY 3 [facility] &/TRANSPO INC [place] [address] LAURA SANCHEZ INFUSION 3 [facility] THERAPY INC INC PROPHYLAX IS/DX EA HOUR BASIC 62339 LAURA LAURA METABOLIC 3 [facility] PANEL INC INC CALCIUM TOTAL ECG 33569 LAURA SANCHEZ ROUTINE 3 [facility] ECG INC INC W/LEAST 12 LDS TRCG ONLY W/O I&R COLLECTIO 23188 LAURA SANCHEZ N VENOUS 3 [facility] BLOOD INC INC VENIPUNCT URE RADIOLOGI 69534 NICKI MORAES C EXAM 3 [facility] CHEST 2 IMAGING VIEWS ASS FRONTAL&L ATERAL BLOOD 46102 LAURA SANCHEZ COUNT 3 [facility] COMPLETE INC INC AUTO&AUTO DIFRNTL WBC ECG 40620 LAURA HOLCOMB ROUTINE 3 [facility] W/LEAST P 12 LDS I&R ONLY NONEMERG A0120 LKLP CAC LKLP CAC TRNSPRT: 3 INC INC MINI-BUS REGION 11 REGION 11 MTN AREA/OTH SYS NONEMERG A0120 LKLP CAC LKLP CAC TRNSPRT: 3 INC INC MINI-BUS REGION 11 REGION 11 MTN AREA/OTH SYS DETERMINA 71714 ELENI KNOWLES TION 3 JAM JAM REFRACTIV E STATE OPHTHALMO 19883 ELENI KNOWLES SCPY 3 JAM JAM EXTENDED RETINAL DRAWING I&R 1ST NONEMERG A0120 LKLP CAC LKLP CAC TRNSPRT: 3 INC INC [facility]-BUS REGION 11 REGION 11 MTN AREA/OTH SYS O2 CONC 1 E1390 ARON ARON DEL PORT 3 HOME HOME 85%/>02 MEDICAL MEDICAL CONC AT EQUIPME EQUIPME PRSC FLW RATE NEEDLE 32260 SY[place]GOGUE VINH EMG EA 3 [facility] W/PARASPI [place] AREA COMPLETE NONEMERG A0120 LKLP CAC LKLP CAC TRNSPRT: 3 INC INC [facility]-BUS REGION 11 REGION 11 MTN AREA/OTH SYS NERVE 50957 SY[place]GO[place]UE VINH CONDUCTIO 3 [facility] 13/> [place] ST[facility] TRIMMING 74276 BRAUDIS BRAUDIS NONDYSTRO 3 JAM JAM PHIC NAILS ANY NUMBER O2 CONC 1 E1390 ARON ARON DEL PORT 3 HOME HOME 85%/>02 MEDICAL MEDICAL CONC AT EQUIPME EQUIPME [facility] FLW RATE MRI 99212 NICKI MORAES SPINAL 3 [facility] CANAL IMAGING CERVICAL ASS W/O CONTRAST MATRL GLUC BLD 34848 LAURA SANCHEZ GLUC MNTR 3 [facility] DEV INC INC [place] [address] CHIPPS SUAD ARMANDO SURG 3 SUNITHA & PATHOLOGY DUBILIER GROSS&ARMANDO ROSCOPIC EXAM SPCL STN 89433 CHIPPS SUAD ARMANDO 2 I&R 3 SUNITHA & EXCPT MAGDALENA MICROORG/ ENZYME/IM CYT EGD 77048 LAURA SANCHEZ TRANSORAL 3 [facility] BIOPSY INC INC SINGLE/[place] [address] LAURA SANCHEZ INFUSION 3 [facility] THERAPY INC INC PROPHYLAX IS/DX EA HOUR NONEMERG A0120 LKLP CAC LKLP CAC TRNSPRT: 3 INC INC [facility]-BUS REGION 11 REGION 11 MTN AREA/OTH SYS EXCISION 06354 MARKIE LOZADA THO NAIL 3 [facility] REMOVAL NONEMERG A0120 LKLP LKLP TRNSPRT: 3 [facility] MINI-BUS ACTION ACTION MTN AREA/OTH SYS O2 CONC 1 E1390 ARON MOSES 3 HOME HOME 85%/>02 MEDICAL MEDICAL CONC AT EQUIPME [facility] FLW RATE CREATINE 09373 LAURA SANCHEZ KINASE MB 3 [facility] FRACTION INC INC ONLY CREATINE 65560 LAURA SANCHEZ KINASE 3 [facility] [place] [address] LAURA SANCHEZ TROPONIN 3 [facility] QUANTITAT INC INC ANGY RADIOLOGI 11439 LAURA SANCHEZ C EXAM 3 [facility] CHEST 2 INC INC VIEWS FRONTAL&L ATERAL BLOOD 84721 LAURA SANCHEZ COUNT 3 [facility] COMPLETE INC INC AUTO&AUTO DIFRNTL WBC COMPREHEN 64517 LAURA SANCHEZ SIVE 3 [facility] METABOLIC INC INC PANEL AMB A0427 [facility] SERVICE 3 AMBULANCE AMBULANCE ALS SERVICE SERVICE EMERGENCY TRANSPORT LEVEL 1 GROUND A0425 [facility] MILEAGE 3 AMBULANCE AMBULANCE PER SERVICE SERVICE STATUTE MILE ECG 08974 LAURA LAURA ROUTINE 3 [facility] ECG INC INC W/LEAST 12 LDS TRCG ONLY W/O I&R ECG 83261 LAURA ZARCO JR ROUTINE 3 [facility] W/LEAST P 12 LDS I&R ONLY NONCOVERE A9270 [facility] D ITEM OR 3 HOSPITAL HOSPITAL SERVICE O2 CONC 1 E1390 ARON SHARP DEL PORT 3 HOME HOME 85%/>02 MEDICAL MEDICAL CONC AT EQUIPME EQUIPME [facility] FLW RATE DEBRIDEME 93791 RAMÍREZ ELMORE NT NAIL 3 JAM JAM ANY METHOD 1-5 TRIMMING 16260 RAMÍREZ ELMORE NONDYSTRO 3 JAM JAM PHIC NAILS ANY NUMBER O2 CONC 1 E1390 ARON SHARP DEL PORT 3 HOME HOME 85%/>02 MEDICAL MEDICAL CONC AT EQUIPME EQUIPME [facility] FLW RATE PROSTATE G0103 COMBINED COMBINED CANCER 3 PHYSICIAN PHYSICIAN SCREENING S LA S LA ; PSA TEST URNLS DIP 37215 COMBINED COMBINED 3 PHYSICIAN PHYSICIAN STICK/TAB S LA S LA LET REAGENT AUTO MICROSCOP Y RADEX 62651 EXPRESS EXPRESS ELBOW 3 MOBILE MOBILE COMPLETE DIAGNOSTI DIAGNOSTI MINIMUM 3 C SE C SE VIEWS RADEX 13974 EXPRESS EXPRESS SHOULDER 3 MOBILE MOBILE COMPLETE DIAGNOSTI DIAGNOSTI MINIMUM 2 C SE C SE VIEWS RADEX 71157 EXPRESS EXPRESS HUMERUS 3 MOBILE MOBILE MINIMUM 2 DIAGNOSTI DIAGNOSTI VIEWS C SE C SE O2 CONC 1 E1390 ARON KNIGHTRELL DEL PORT 3 HOME HOME 85%/>02 MEDICAL MEDICAL CONC AT EQUIPME EQUIPME [facility] FLW RATE O2 CONC 1 E1390 ARON ARON DEL PORT 3 HOME HOME 85%/>02 MEDICAL MEDICAL CONC AT EQUIPME EQUIPME [facility] FLW RATE PARING/CU 80298 RAMÍREZ ELMORE TTING 3 JAM JAM BENIGN HYPERKERA TOTIC LESION >4 DEBRIDEME 72172 RAMÍREZ ELMORE NT NAIL 3 JAM JAM ANY METHOD 1-5 TRIMMING 59822 RAMÍREZ ELMORE NONDYSTRO 3 JAM JAM PHIC NAILS ANY NUMBER O2 CONC 1 E1390 ARON SHARP DEL PORT 3 HOME HOME 85%/>02 MEDICAL MEDICAL CONC AT EQUIPME EQUIPME PRSC FLW RATE NONEMERG A0120 LKLP LKLP TRNSPRT: 3 [facility]-BUS ACTION ACTION MTN AREA/[place] [address] LAURA SANCHEZ INFUSION 3 [facility] THERAPY INC INC PROPHYLAX IS/DX EA HOUR COLONOSCO 36345 LAURA SNACHEZ PY FLX DX 3 [facility] W/[place] [address] LAURA SANCHEZ INFUSION 3 [facility] THERAPY/P INC INC ROPHYLAXI S /DX 1ST TO 1 HR O2 CONC 1 E1390 ARON SHARP DEL PORT 2 HOME HOME 85%/>02 MEDICAL MEDICAL CONC AT EQUIPME EQUIPME PRSC FLW RATE O2 CONC 1 E1390 ARON SHARP DEL PORT 2 HOME HOME 85%/>02 MEDICAL MEDICAL CONC AT EQUIPME EQUIPME PRSC FLW RATE LIPID 84456 COMBINED COMBINED PANEL 2 [place] [address] COMBINED COMBINED THYROID 2 PHYSICIAN PHYSICIAN STIMULATI S LA S LA NG HORMONE TSH PROSTATE G0103 COMBINED COMBINED CANCER 2 PHYSICIAN PHYSICIAN SCREENING S LA S LA ; PSA TEST COLLECTIO 24231 COMBINED COMBINED N VENOUS 2 PHYSICIAN PHYSICIAN BLOOD S LA S LA VENIPUNCT URE COMPREHEN 41807 COMBINED COMBINED SIVE 2 PHYSICIAN PHYSICIAN METABOLIC S LA S LA PANEL O2 CONC 1 E1390 ARON SHARP DEL PORT 2 HOME HOME 85%/>02 MEDICAL MEDICAL CONC AT EQUIPME EQUIPME PRSC FLW RATE ECG 75226 LAURA SANCHEZ ROUTINE 2 [facility] ECG INC INC W/LEAST 12 LDS TRCG ONLY W/O I&R RADIOLOGI 79888 LAURA SANCHEZ C 2 [facility] EXAMINATI INC INC ON CHEST SINGLE VIEW FRONTAL ECG 63969 HAROLDO ZARCO JR ROUTINE 2 DWI DWI ECG W/LEAST 12 LDS I&R ONLY SAVAGE 96793 DEL MATHIS JR POST-VOID 2 MARCY MARCY ING RESIDUAL URINE&/BL ADDER CAP NONEMERG A0120 LKLP LKLP TRNSPRT: 2 [facility] MINI-BUS ACTION ACTION MTN AREA/OTH SYS BASIC 20011 LAURA SANCHEZ METABOLIC 2 [facility] PANEL INC INC CALCIUM TOTAL 3D 72813 LAURA SANCHEZ RENDERING 2 [facility] INC INC W/INTERP& [place] [address] LAURA SANCHEZ ABDOMEN & 2 [facility] PELVIS INC INC W/O CONTRAST MATERIAL BLOOD 42971 LAURA SANCHEZ COUNT 2 [facility] COMPLETE INC INC AUTO&AUTO DIFRNTL WBC INSJ TEMP 38465 LAURA SANCHEZ NDWELLG 2 [facility] BLADDER [place] [address] LAURA SANCHEZ THYROID 2 [facility] STIMULATI INC INC NG HORMONE TSH URNLS DIP 48981 LAURA SANCHEZ 2 [facility] STICK/TAB INC [place] [address] LAURA SANCHEZ INFUSION 2 [facility] HYDRATION INC INC INITIAL 31 MIN-1 HOUR RADIOLOGI 57582 NICKI ROCKCHER C 2 [facility] EXAMINATI IMAGING ON CHEST ASS SINGLE VIEW FRONTAL ECG 46662 RAND GORDILLO ROUTINE 2 III MARCY III MARCY ECG W/LEAST 12 LDS I&R ONLY O2 CONC 1 E1390 ARON ARON DEL PORT 2 HOME HOME 85%/>02 MEDICAL MEDICAL CONC AT EQUIPME EQUIPME PRS FLW RATE TRIMMING 13436 BRAUDIS BRAUDIS NONDYSTRO 2 JAM JAM PHIC NAILS ANY NUMBER O2 CONC 1 E1390 ARON ARON DEL PORT 2 HOME HOME 85%/>02 MEDICAL MEDICAL CONC AT EQUIPME EQUIPME PR[place] SOFT 96906 NICKI ROCKCHER TISSUE 2 [facility] NECK W/O IMAGING CONTRAST ASS MATERIAL BLOOD 18688 LAURA SANCHEZ COUNT 2 [facility] COMPLETE INC INC AUTO&AUTO DIFRNTL WBC CT SOFT 15955 LAURA SANCHEZ TISSUE 2 [facility] NECK INC INC W/CONTRAS T MATERIAL 3D 31996 LAURA SANCHEZ RENDERING 2 [facility] INC INC W/INTERP& POSTPROC DIFF WORK STATION BASIC 41489 LAURA SANCHEZ METABOLIC 2 [facility] MEM [...] MINI-BUS ACTION ACTION MTN AREA/OTH SYS ECG 30324 ZEKE QUOC ZEKE BAR ROUTINE 2 ECG W/LEAST 12 LDS I&R ONLY ECG 93085 HEEB CHR HEEB CHR ROUTINE 2 ECG W/LEAST 12 LDS I&R ONLY ECG 16173 HEEB CHR HEEB CHR ROUTINE 2 ECG W/LEAST 12 LDS I&R ONLY RADIOLOGI 62012 RADIOLOGY NEILS JONATHAN C 2 EXAMINATI ASSOCIATE ON CHEST S OF NOT SINGLE VIEW FRONTAL ECG 20895 HEEB CHR HEEB CHR ROUTINE 2 ECG [...] MEDICAL AIRWAY EQUIPME EQUIPME PRESSURE DEVICE POLYSOM 14489 LEON QUINTERO 6/>YRS 1 ERNST ERNST SLEEP W/CPAP 4/> ADDL KATARINA ATTND POLYSOM 36388 LAURA SANCHEZ 6/>YRS 1 [facility] SLEEP INC INC W/CPAP 4/> ADDL KATARINA ATTND URNLS DIP 78609 LAURA SANCHEZ 1 [facility] STICK/TAB INC INC LET REAGENT AUTO MICROSCOP Y 3D 51362 [place] ALEISHA RENDERING 1 [facility]ICAL [facility] IMAGING W/INTERP& ASS POSTPROC DIFF WORK STATION CULTURE 53121 LAURA SANCHEZ BACTERIAL 1 [facility] INC INC QUANTTATI VE COLONY COUNT URINE BLOOD 33427 LAURA SANCHEZ COUNT 1 [facility] COMPLETE INC INC AUTO&AUTO DIFRNTL WBC INSJ TEMP 46620 LAURA SANCHEZ NDWELLG 1 [facility] [place] [address] NICKI MORAES ABDOMEN & 1 [facility] PELVIS IMAGING W/O ASS CONTRAST MATERIAL COLLECTIO 94587 LAURA SANCHEZ N VENOUS 1 [facility] BLOOD INC INC VENIPUNCT URE COMPREHEN 95163 LAURA LAURA SIVE 1 [facility] METABOLIC INC INC PANEL CV STRS 56162 AICHA HOLCOMB TST 1 JEANIE JEANIE XERS&/OR RX CONT ECG I&R ONLY TECHNETIU A9502 LAURA Ornelas TC-99M 1 [facility] TETROFOSM INC INC IN DX PER STUDY DOSE MYOCARDIA 66309 FALLUJI FALLUJI L SPECT 1 TATUM TATUM MULTIPLE STUDIES CV STRS 29358 AICHA HOLCOMB TST 1 JEANIE JEANIE XERS&/OR RX CONT ECG W/O I&R CV STRS 74437 LAURA SANCHEZ TST 1 [facility] XERS&/OR INC INC RX CONT ECG TRCG ONLY INJECTION J2785 LAURAJESSIKA TRIPPON 1 [facility] REGADENOS INC INC ON 0.1 MG INITIAL 59299 AICHA HOLCOMB OBSERVATI 1 JEANIE JEANIE ON CARE/DAY 30 MINUTES ECG 70641 PUND CHR PUND CHR ROUTINE 1 ECG W/LEAST 12 LDS I&R ONLY RADIOLOGI 51356 NICKI MORAES C EXAM 1 [facility] CHEST 2 IMAGING VIEWS ASS FRONTAL&L ATERAL ECHO 76252 FALLUJI FALLUJI TTHRC R-T 1 TATUM TATUM 2D W/WOM-MOD E COMPL SPEC&COLR D POLYSOM 49929 LEON QUINTERO 6/>YRS 1 ERNST ERNST SLEEP 4/> ADDL KATARINA ATTND NONEMERG A0120 LKLP LK TRNSPRT: 1 [facility] MINI-BUS ACTION N [facility] AREA/OTH SYS POLYSOM 17197 LAURA SANCHEZ 6/>YRS 1 [facility] SLEEP 4/> INC INC ADDL KATARINA ATTND SPMTRY 88918 LAURA SANCHEZ W/VC 1 [facility] EXPIRATOR INC INC Y MARYLOU W/WO MXML VOL VNTJ NONINVASI 67286 LAURA SANCHEZ VE 1 [facility] EAR/PULSE INC [place] [address] LAURA SANCHEZ THYROID 1 [facility] STIMULATI INC INC NG HORMONE TSH COLLECTIO 39446 LAURA SANCHEZ N VENOUS 1 [facility] BLOOD INC INC VENIPUNCT [facility] 51162 LAURA SANCHEZ ANALYSIS 1 [facility] ADDL HIGH INC INC RESOLUTIO N STUDY [facility] 37151 LAURA SANCHEZ COUNT 1 [facility] 15-20 CLL INC INC 2KARYOTYP BANDING BLOOD 03062 LAURA SANCHEZ COUNT 1 [facility] COMPLETE INC INC AUTO&AUTO DIFRNTL WBC NONEMERG A0120 LKLP LKLP TRNSPRT: 1 [facility] MINI-BUS ACTION N [facility] AREA/OTH SYS COMPREHEN 19945 LAURA SANCHEZ SIVE 1 [facility] METABOLIC INC INC PANEL COMPREHEN 54029 COMBINED COMBINED SIVE 1 PHYSICIAN PHYSICIAN METABOLIC S LA S LA PANEL TRAVEL [address] MED 1 PHYSICIAN PHYSICIAN NEC LAB S LA S LA SPEC; PRORATD TRIP CHRG COLLECTIO 39291 COMBINED COMBINED N VENOUS 1 PHYSICIAN PHYSICIAN BLOOD S LA S LA VENIPUNCT URE PROSTATE G0103 COMBINED COMBINED CANCER 1 PHYSICIAN PHYSICIAN SCREENING S LA S LA ; [place] [address] COMBINED COMBINED THYROID 1 PHYSICIAN PHYSICIAN STIMULATI S LA S LA NG HORMONE TSH LIPID 72709 COMBINED COMBINED PANEL 1 PHYSICIAN PHYSICIAN S LA S LA NONEMERG A0120 LKLP LKLP TRNSPRT: 1 [facility] MINI-BUS ACTION N MTN AREA/OTH SYS URNLS DIP 61416 COMBINED COMBINED 1 PHYSICIAN PHYSICIAN STICK/TAB S LA S LA LET REAGENT AUTO MICROSCOP Y CULTURE 33987 COMBINED COMBINED BACTERIAL 1 PHYSICIAN PHYSICIAN S LA S LA QU[place]TTATI [place] L[place] [address] ORAL ORAL SURG 1 PATHOLOGY PATHOLOGY PATHOLOGY LABORATOR LABORATOR GROSS&ARMANDO Y [place] ROSCOPIC EXAM EXC 19216 THE RODRIGUEZ, LESION/TU 1 IMPLANT & III OANH MOR ORAL DENTOALVE SURGERY C OLAR STRUX W/SMPL RPR ORTHOPANT 83686 THE THE OGRAM 1 IMPLANT & IMPLANT & ORAL ORAL SURGERY C SURGERY C NONEMERG A0120 LKLP LKLP TRNSPRT: 1 [facility] MINI-BUS ACTION N MTN AREA/OTH SYS NONEMERG A0120 LKLP LKLP TRNSPRT: 1 [facility] MINI-BUS ACTION N MTN AREA/OTH SYS NONEMERG A0120 LKLP LKLP TRNSPRT: 1 [facility] MINI-BUS ACTION N MTN AREA/OTH SYS OPHTH 09950 [facility] 1 VISION XM&EVAL COMPRE NEW PT 1/> VST RADEX 46232 [facility] WRIST 1 [facility] COMPLETE MINIMUM 3 VIEWS SET-UP Q0092 [facility] PORTABLE 1 [facility] X-RAY EQUIPMENT TRANS R0070 [facility] PRTBL 1 [facility] X-RAY EQP&PERS [place]/NRS RICHMOND-TRIP 1 PT TRANS R0070 [facility] PRTBL 1 [facility] X-RAY EQP&PERS [place]/NRS [place]-TRIP 1 PT SET-UP Q0092 [facility] PORTABLE 1 [facility] X-RAY EQUIPMENT RADIOLOGI 68383 [facility] C 1 [facility] EXAMINATI ON CHEST SINGLE VIEW FRONTAL URNLS DIP 47143 LAURA SANCHEZ 1 [facility] STICK/TAB INC INC LET REAGENT AUTO MICROSCOP Y 3D 76029 NICKI ALEISHA RENDERING 1 [facility] IMAGING W/INTERP& [place] [address] NICKI MORAES ABDOMEN & 1 [facility] PELVIS IMAGING W/O ASS CONTRAST MATERIAL BLOOD 50787 LAURA SANCHEZ COUNT 1 [facility] COMPLETE INC INC AUTO&AUTO DIFRNTL WBC INSJ TEMP 91038 LAURA SANCHEZ NDWELLG 1 [facility] BLADDER INC INC CATHETER SIMPLE COMPREHEN 70682 LAURA SANCHEZ SIVE 1 [facility] METABOLIC INC INC PANEL GROUND A0425 [facility] MILEAGE 1 AMBULANCE AMBULANCE PER SERVICE SERVICE STATUTE MILE AMBULANCE A0429 [facility] SERVICE 1 AMBULANCE AMBULANCE BLS SERVICE SERVICE EMERGENCY TRANSPORT GROUND A0425 [facility] MILEAGE 1 AMBULANCE AMBULANCE PER SERVICE SERVICE STATUTE MILE TRANS R0075 EXPRESS EXPRESS PRTBL 1 MOBILE MOBILE XRAY DIAGNOSTI DIAGNOSTI EQP&PERS C SE C SE RICHMOND/NRS RICHMOND-TRIP> 1 PT AMB A0427 [facility] SERVICE 1 AMBULANCE AMBULANCE ALS SERVICE SERVICE EMERGENCY TRANSPORT LEVEL 1 SBSQ 68668 [facility] 1 [place] CARE/DAY URGENT 25 TREAT MINUTES SET-UP Q0092 EXPRESS EXPRESS PORTABLE 1 MOBILE MOBILE X-RAY DIAGNOSTI DIAGNOSTI EQUIPMENT C SE C SE RADEX 73401 EXPRESS EXPRESS WRIST 1 MOBILE MOBILE COMPLETE DIAGNOSTI DIAGNOSTI MINIMUM 3 C SE C SE VIEWS RADEX 68600 EXPRESS EXPRESS HAND 1 MOBILE MOBILE MINIMUM 3 DIAGNOSTI DIAGNOSTI VIEWS C SE C SE RADIOLOGI 12969 [facility] [place] RADHA C 1 RADIOLOGY BOY EXAMINATI ON CHEST SINGLE VIEW FRONTAL ECG [address] [facility] 1 [facility] ECG CARDIOLOG W/LEAST Y CLINIC 12 LDS I&R ONLY SBSQ [address] CARE/DAY URGENT 35 TREAT MINUTES SBSQ [address] CARE/DAY URGENT 25 TREAT MINUTES SBSQ 53524 [facility] [place] CARE/DAY URGENT 25 TREAT MINUTES SBSQ 99204 [facility] 1 URGENT CARE/DAY TREATMENT 35 A MINUTES SET-UP Q0092 EXPRESS EXPRESS PORTABLE 1 MOBILE MOBILE X-RAY DIAGNOSTI DIAGNOSTI EQUIPMENT C SE C SE TRANS R0070 EXPRESS EXPRESS PRTBL 1 MOBILE MOBILE X-RAY DIAGNOSTI DIAGNOSTI EQP&PERS C SE C SE RICHMOND/NRS RICHMOND-TRIP 1 PT RADEX 12653 EXPRESS EXPRESS HAND 1 MOBILE MOBILE MINIMUM 3 DIAGNOSTI DIAGNOSTI VIEWS C SE C SE SBSQ 89060 [facility] 1 URGENT CARE/DAY TREATMENT 35 A MINUTES SET-UP Q0092 EXPRESS EXPRESS PORTABLE 1 MOBILE MOBILE X-RAY DIAGNOSTI DIAGNOSTI EQUIPMENT C SE C SE SBSQ 67148 [facility] 1 [place] CARE/DAY URGENT 35 TREAT MINUTES TRANS R0070 EXPRESS EXPRESS PRTBL 1 MOBILE MOBILE X-RAY DIAGNOSTI DIAGNOSTI EQP&PERS C SE C SE RICHMOND/NRS RICHMOND-TRIP 1 PT ECG 76122 [facility] ROUTINE 1 [place] ECG URGENT W/LEAST TREAT 12 LDS I&R ONLY ECG 90749 EXPRESS EXPRESS ROUTINE 1 MOBILE MOBILE ECG DIAGNOSTI DIAGNOSTI W/LEAST C SE C SE 12 LDS TRCG ONLY W/O I&R RADIOLOGI 41226 EXPRESS EXPRESS C EXAM 1 MOBILE MOBILE CHEST 2 DIAGNOSTI DIAGNOSTI VIEWS C SE C SE FRONTAL&L ATERAL INITIAL 84664 [facility] 1 URGENT CARE/DAY TREATMENT 50 A MINUTES COMPREHEN 57284 FAMILY [facility] SIVE 1 PRACT RONALD METABOLIC ASS[facility] OF PANEL [place] COLLECTIO 02100 FAMILY FAMILY N VENOUS 1 PRACT PRACT BLOOD ASSOC OF ASSOC OF [place]ENIPUNCT [place] [address] FAMILY MONOHAN FREE 1 PRACT RONALD THYROXINE ASSOC OF [place] RADEX 55498 [facility] LYN J SPINE 1 RADIOLOGY THORACIC ASSOC [place] [address] FAMILY MONOHAN THYROID 1 PRACT RONALD STIMULATI ASSOC OF NG [place] HORMONE TSH LIPID 30996 FAMILY MON[facility]AN PANEL 1 PRACT RONALD ASSOC OF [place] URNLS DIP 49756 FAMILY MONOHAN 1 PRACT RONALD STICK/TAB ASSOC OF [place] [address] [facility] [place] ABDOMEN & 1 RADIOLOGY LD A PELVIS W/CONTRAS T MATERIAL Encounters Encounter Start End Date Code [facility] Per[facility] - OTHER 7 7 [facility] 7 7 [facility] 7 7 [facility] OFF[facility] 05324 [facility] [place] OUTPATIEN 7 7 [facility] 10 P MINUTES [facility] [place] INPATIENT 7 7 [facility] [place] [facility]PATIENT 7 7 [facility] E OFFICE [id number] [facility] OUT[facility] 7 7 MEDICAL T [facility]ISIT SERV 40 FOUNDATIO MINUTES [facility] - OTHER 7 7 [facility] [place] [facility] 7 7 [facility] OFF[facility] 83731 [facility] 7 7 PH[facility]ICIAN T VISIT S GROUP 10 MINUT[facility] OFFICE 07210 [facility] 7 7 PHYSICIAN T [facility]ISIT S GROUP 25 MINUTES [facility] 7 7 [facility] 89763 [facility] [place] [facility] 7 7 [facility] P MINUTES [facility] [facility] 7 7 [facility] 7 [facility] T OFFICE 07248 [facility] [place] [facility] P MIN[facility]ES OFFICE 57715 [facility] 7 7 PHYSICIAN T VISIT S GROUP 15 MINUTES [facility] OTHER 7 7 [facility] [facility] [place] [facility] 7 7 [facility] E OFFICE [id number] [facility] OUTPATIEN 7 7 PHYSICIAN T NEW 20 S GROUP MINUTES [facility] [place] [facility] 7 7 [facility] OFFICE 52741 [facility] OUTPATIEN 7 7 PHYSICIAN T VISIT S GROUP 25 MINUT[facility] - 7 7 [facility] OUTPATIEN INC [facility] [place] INPATIENT 7 7 [facility] [place] INPAT[facility] 7 7 HEALTH[facility] E EMERGENCY [id number] KEVIN JEFFERS DEPT 7 7 PHYSICIAN VISIT S, PLLC HIGH SEVERITY& THREAT [facility] [place] INPATIENT 7 7 [facility]ALTH[facility] E OFFICE 09376 [place] OUTPATIEN 7 7 MEDICAL T VISIT SERV 25 FOUNDATIO MINUTES [facility] [place] - 7 7 [facility] OUTPATIEN E [facility] [place] IN[facility] 7 7 [facility] E [facility] [place] IN[facility] 6 6 [facility] E [facility] [place] IN[facility] 6 6 [facility] - 6 6 [facility] OUTPATIEN INC T OFFICE 46120 [place] BE[place] OUTPAT[facility]EN 6 6 MEDICAL T VISIT SERV 25 FOUNDATIO MINUTES [facility] 6 [facility] - 6 6 [facility] OUTPATIEN INC T OFFICE 33482 [facility]PATI[facility] 6 6 PHYSICIAN MAT T [facility]ISIT S GROUP 25 MINUTES [facility] 6 6 [facility] 6 [facility] 6 [facility] E OFFICE 93318 [facility] OUTPATIEN 6 6 PHYSICIAN MAT T VISIT S GROUP 25 MINUTES OFFICE 66065 [facility] OUTPATIEN 6 6 PHYSICIAN MAT T VISIT S GROUP 25 MINUTES [facility] - 6 6 [facility] - 6 6 [facility] OUTPATIEN INC T OFFICE 97970 [facility]PATIEN 6 6 PHYSICIAN MAT T VISIT S GROUP 25 [facility]UTES [facility] - 6 6 [facility] OUTPATIEN INC T OFFICE 84776 CARDI[facility]AS [facility] OUTPATIEN 6 6 CULAR MAT T VISIT CONSULTAN 25 TS O MINUTES EMERGENCY 39695 [facility] 5 5 [facility] DEPARTMEN INC T VISIT LOW/MODER SEVERITY [facility] - 5 5 [facility] OUTPATIEN INC T OFFICE 68117 [facility] OUTPATI[facility] 5 5 CULAR MAT T VISIT CONSULTAN 40 TS O MINUTES [facility] - 5 5 [facility] OUTPATIEN INC T OFFICE 93444 [facility] OUTPATIEN 5 5 Y T VISIT 5 [facility] - 5 5 [facility] 31855 [facility] 5 5 [facility] DEPARTMEN INC T VISIT MODERATE SEVERITY [facility] - 5 5 [facility] INC [facility] - 5 5 [facility] T [facility] - 4 4 [facility] OUTPATIEN INC T OFFICE 76981 [place] OUTPATIEN 4 4 MEDICAL SHA T NEW 30 SERV MINUTES FOUNDATIO N OFFICE 63898 [facility] 4 4 T VISIT 10 OFFICE 67455 [facility] 4 4 T VISIT 10 MINUTES [facility] - 4 4 [facility] OUTPATIEN INC T OFFICE 99107 ANNETTE [facility]YANT OUTPATIEN 4 4 DEUCE DEUCE T NEW OFFICE 01774 [facility] 4 4 PHYSICIAN JAM T VISIT S GROUP 15 [facility] - 4 4 [facility] INC T [facility] - 3 3 [facility] - 3 3 [facility] - 3 3 [facility] OUTPATIEN INC T OFFICE 55647 [facility] OUTPATIEN 3 3 NEUROLOGY [facility] 15 [place] MINUTES [facility] - 3 3 [facility] OUTPATIEN INC T [facility] - 3 3 [facility] OUTPATIEN INC T OFFICE 96387 MARKIE SANDERSON OUTPATIEN 3 3 FOOT AND T NEW 20 ANKLE MINUTES CENTER OFFICE 45404 [facility] GEORGE OUTPATIEN 3 3 SATHYA HILLMAN T VISIT HOSPITAL 25 MINUTES [facility] - 3 3 [facility] T EMERGENCY 86800 ERIC JEFFERS DEPT 3 3 MEDICAL ARMANDO VISIT GROUP, HIGH PLLC SEVERITY& THREAT FUNCJ EMERGENCY 05426 [facility] [address] [facility] T VISIT HIGH/URGE NT SEVERITY [facility] [address] [facility] [id number] T VISIT LOW/MODER SEVERITY EMERGENCY 62999 [facility] 3 3 [facility] EMERGENC[facility] T VISIT PHYSI MODERATE SEVERITY OFFICE 07544 [facility] OUTPATIEN 3 3 ZO BRUNO BERNSTEIN T VISIT CARDIOLOG 15 Y CLINIC MINUTES [facility] - 3 3 [facility] INC T OFFICE 73951 C ANTONETTE DORIS OUTPATIEN 2 2 KRZYSZTOFTERESA HILLMAN Abhijit NEW 45 [facility]ES OFF[facility] 73384 [facility] 2 2 ZO TATUM T VISIT CARDIOLOG 25 Y CLINIC MINUTES [facility] - 2 2 [facility] INC T EMERGENCY 45492 [facility] [address] [facility] MODERATE SEVERITY [facility] - 2 2 [facility] INC T [facility] 2 2 [facility] INC T EMERGENCY 17760 [facility] 2 2 [facility] DEPARTMEN INC T VISIT HIGH/URGE NT SEVERITY [facility] - 2 2 [facility] INC T [facility] 2 2 [facility]EN [facility] EMERGENCY 65029 [facility] 2 2 [facility] T VISIT LOW/MODER SEVERITY [facility] - 1 1 [facility] OUTPATIEN [facility] - 1 1 [facility] EMERGENCY 05717 [facility] 1 1 [facility] T VISIT HIGH/URGE NT SEVERITY [facility] - 1 1 [facility] OUTPATIEN [facility] - 1 1 [facility] OUTPATIEN [facility] - 1 1 [facility] OUTPATIEN [facility] OFFICE 99292 [place] OUTPATIEN 1 1 [facility] 60 SERV MINUTES [facility] - 1 1 [facility] OUTPATIEN [facility] EMERGENCY 41232 [facility] DEPT 1 1 EMERGENCY ARM[facility]O VISIT SERVICES HIGH SEVERITY& [facility] 1 1 [facility] EMERGENCY 03585 [facility] 1 1 [facility] VISIT HIGH/URGE NT SEVERITY OFFICE 99490 [facility] MATHIS JR OUTPATIEN 1 1 [facility] 30 HOSPITAL MINUTES P OFFICE 02453 [facility]PAT[facility]EN 1 1 PRACT RONALD T VISIT ASSOC OF 25 [place] [address] MINUTES OFFICE 35897 [facility] OUTPATIEN 1 1 PRACT RONALD T VISIT ASSOC OF 25 [place] [address] MINUTES EMERGENCY 38204 [facility] DEPT 1 1 [facility] VISIT CARE HIGH PHYSICANS SEVERITY& M THREAT FUN
--- OUTSIDE RECORDS SUMMARY | 2017-05-17 17:29 | External Medical Summary Rpt | CCD ---
Demographics Preferred Language Venezuelan Marital Status Unknown Roman Catholic Affiliation Unknown Race Unknown Ethnic Group Unknown Author Author , GRAHAM STEVENSON Address Unknown Phone Immunization No patient found.
--- OUTSIDE RECORDS SUMMARY | 2017-05-17 17:29 | External Medical Summary Rpt ---
Author Author [employer], [employer] Organization [employer] Address Unknown Phone Unavailable Results Comprehensive metabolic 2000 panel in Serum or Plasma Observa Value Referen Units Interpr Notes Date tion ce etation Range Albumin/G 1.1 - 1.8 No Low No Oct 4 lobulin informati informati 2017 8:47 [Mass on in on in PM ratio] in source source Serum or data data Plasma Albumin 3.4 - 5.0 gm/dL Low No Oct 4 [Mass/vol informati 2017 8:47 ume] in on in PM Serum or source Plasma data Alkaline 46 - 116 U/L Normal No Oct 4 phosphata informati 2017 8:47 se on in PM [Enzymati source c data activity/ volume] in Serum or Plasma Bilirubin 0.2 - 1.0 mg/dL Normal No Oct 4 .total informati 2017 8:47 [Mass/vol on in PM ume] in source Serum or data Plasma Urea 7 - 18 mg/dL Normal No Oct 4 nitrogen informati 2017 8:47 [Mass/vol on in PM ume] in source Serum or data Plasma Calcium 8.5 - mg/dL Normal No Oct 4 [Mass/vol 10.1 informati 2017 8:47 ume] in on in PM Serum or source Plasma data Chloride 98 - 107 mmoL/L Normal No Oct 4 [Moles/vo informati 2017 8:47 lume] in on in PM Serum or source Plasma data Carbon 21.0 - mmoL/L Normal No Oct 4 dioxide, 32.0 informati 2017 8:47 total on in PM [Moles/vo source lume] in data Serum or Plasma Creatinin 0.70 - mg/dL Normal No Oct 4 e 1.30 informati 2017 8:47 [Mass/vol on in PM ume] in source Serum or data Plasma Creatinin 50 - 200 ML/MIN Normal No Oct 4 e renal informati 2017 8:47 clearance on in PM source predicted data by Cockcroft -Gault formula Estimated >60 ML/MIN No REFERENCE Oct 4 informati RANGE: 2017 8:47 glomerula on in >60 PM r source ML/MIN/1. filtratio data 73 SQUARE n rate METERSIf (GF this patient is -A merican, then multiply theresult by 1.210. Globulin 1.3 - 3.2 gm/dL High No May 09 [Mass/vol informati 2016 8:47 ume] in on in PM Serum source data Glucose 74 - 106 mg/dL High No May 09 [Mass/vol informati 2016 8:47 ume] in on in PM Serum or source Plasma data Potassium 3.5 - 5.1 mmoL/L Normal No May 09 informati 2016 8:47 [Moles/vo on in PM lume] in source Serum or data Plasma Sodium 136 - 145 mmoL/L Normal No May 09 [Moles/vo informati 2016 8:47 lume] in on in PM Serum or source Plasma data Aspartate 15 - 37 U/L Low No May 09 inform2016 8:47 aminotran on in PM sferase source [Enzymati data c activity/ volume] in Serum or Plasma Alanine 12 - 78 U/L Normal No May 09 aminotran informati 2016 8:47 sferase on in PM [Enzymati source c data activity/ volume] in Serum or Plasma Protein 6.4 - 8.2 gm/dL High No May 09 [Mass/vol informati 2016 8:47 ume] in on in PM Serum or source Plasma data CBC W Auto Differential panel in Blood Observa Value Referen Units Interpr Notes Date tion ce etation Range Basophils 0 - 0.2 K/MM3 Normal No May 09 inform2016 8:47 [#/volume on in PM ] in source Blood by data Automated count Basophils 0.1 - 2.0 % Normal No May 09 /100 informati 2016 8:47 leukocyte on in PM s in source Blood by data Automated count Eosinophi 0.0 - 0.4 K/mm3 Normal No May 09 ls informati 2016 8:47 [#/volume on in PM ] in source Blood by data Automated count Eosinophi 0.1 - % Normal No May 09 ls/100 12.0 informati 2016 8:47 leukocyte on in PM s in source Blood by data Automated count Granulocy 1.3 - 8.0 K/mm3 High No Oct 4 pierce informati 2016 8:47 [#/volume on in PM ] in source Blood by data Automated count Granulocy 37.0 - % Normal No May 09 pierce/100 80.0 informati 2016 8:47 leukocyte on in PM s in source Blood by data Automated count Hematocri 42.0 - % Low No May 09 t [Volume 52.0 informati 2016 8:47 on in PM Fraction] source of Blood data Hemoglobi 14.1 - g/dL Low No May 09 n 18.0 informati 2016 8:47 [Mass/vol on in PM ume] in source Blood data Lymphocyt 0.7 - 4.5 K/mm3 Normal No May 09 es informati 2016 8:47 [#/volume on in PM ] in source Unspecifi data ed specimen by Automated count Lymphocyt 10 - 50 % Normal No May 09 es informati 2016 8:47 [#/volume on in PM ] in source Unspecifi data ed specimen by Automated count Erythrocy 27 - 31.2 pg Normal No May 09 te mean informati 2016 8:47 corpuscul on in PM ar source hemoglobi data n [Entitic mass] Erythrocy 31.8 - g/dl Low No May 09 te mean 35.4 informati 2016 8:47 corpuscul on in PM ar source hemoglobi data n concentra tion [Mass/vol ume] by Automated count Erythrocy 82.2 - fl Normal No May 09 te mean 97.8 informati 2016 8:47 corpuscul on in PM ar volume source [Entitic data volume] by Automated count Monocytes 0.1 - 1.0 K/mm3 Normal No May 09 informati 2016 8:47 [#/volume on in PM ] in source Blood by data Automated count Monocytes 1.7 - 9.3 % Normal No May 09 /100 informati 2016 8:47 leukocyte on in PM s in source Blood by data Automated count Platelet 7.4 - fl Normal No May 09 mean 10.4 informati 2016 8:47 volume on in PM [Entitic source volume] data in Blood by Automated count Platelets 142 - 424 K/mm3 Normal No May 09 informati 2016 8:47 [#/volume on in PM ] in source Blood data Erythrocy 4.6 - 6.2 M/mm3 Low No May 09 pierce informati 2016 8:47 [#/volume on in PM ] in source Amniotic data fluid Erythrocy 11.5 - % Normal No Oct 4 te 17.5 informati 2017 8:47 distribut on in PM ion width source [Entitic data volume] by Automated count Leukocyte 4.8 - K/MM3 High No Oct 4 s 10.8 informati 2017 8:47 [#/volume on in PM ] in source Blood data Urinalysis dipstick W Reflex Microscopic panel in Urine Observa Value Referen Units Interpr Notes Date tion ce etation Range Appeara CLEAR CLEAR No No No May 4 nce of informa informa informa 2017 Urine tion in tion in tion in 7:33 PM source source source data data data Bacteri OCC O No No No May 09 a informa informa informa 2016 [Presen tion in tion in tion in 7:33 PM ce] in source source source Urine data data data sedimen t by Light microsc opy Bilirub NEGATIV NEG No No No May 09 in E informa informa informa 2016 [Presen tion in tion in tion in 7:33 PM ce] in source source source Urine data data data by Test strip Erythro NEGATIV NEG No No No May 09 cytes E informa informa informa 2016 [Presen tion in tion in tion in 7:33 PM ce] in source source source Urine data data data Color YELLOW YELLOW No No No May 09 of informa informa informa 2016 Urine tion in tion in tion in 7:33 PM source source source data data data Glucose NEG No No No May 09 [Mass/vol informati informati informati 2016 7:33 ume] in on in on in on in PM Urine by source source source Test data data data strip Ketones NEGATIV NEG mg/dL No No May 09 E informa informa 2016 [Presen tion in tion in 7:33 PM ce] in source source Urine data data by Automat ed test strip Mucus NEGATIV NEG No No No May 09 [Presen E informa informa informa 2016 ce] in tion in tion in tion in 7:33 PM Urine source source source sedimen data data data t by Light microsc opy Nitrite NEGATIV NEG No No No May 09 E informa informa informa 2016 [Presen tion in tion in tion in 7:33 PM ce] in source source source Urine data data data by Test strip pH of 5.0 - 8.5 No Normal No May 4 Urine informati informati 2017 7:33 on in on in PM source source data data Protein NEG mg/dL No No May 09 [Mass/vol informati informati 2016 7:33 ume] in on in on in PM Urine by source source Automated data data test strip Specific 1.005 - No Normal No May 09 gravity 1.030 informati informati 2017 7:33 of Urine on in on in PM source source data data Epithel 3-5 OCC #/hpf No No May 09 ial informa informa 2017 cells.s tion in tion in 7:33 PM quamous source source data data [Presen ce] in Urine sedimen t by Microsc opy high power field Urobili 0.2 NEG E.U./dL No No May 09 nogen informa informa 2016 [Presen tion in tion in 7:33 PM ce] in source source Urine data data by Test strip Leukocyte O wbc/hpf No No May 09 s informati informati 2017 7:33 [#/volume on in on in PM ] in source source Urine data data Urinalysis dipstick W Reflex Microscopic panel in Urine Observa Value Referen Units Interpr Notes Date tion ce etation Range Appeara CLEAR CLEAR No No No May 09 nce of informa informa informa 2017 Urine tion in tion in tion in 7:33 PM source source source data data data Bilirub NEGATIV NEG No No No May 09 in E informa informa informa 2016 [Presen tion in tion in tion in 7:33 PM ce] in source source source Urine data data data by Test strip Erythro NEGATIV NEG No No No May 09 cytes E informa informa informa 2016 [Presen tion in tion in tion in 7:33 PM ce] in source source source Urine data data data Color YELLOW YELLOW No No No May 09 of informa informa informa 2017 Urine tion in tion in tion in 7:33 PM source source source data data data Glucose NEG No No No May 09 [Mass/vol informati informati informati 2017 7:33 ume] in on in on in on in PM Urine by source source source Test data data data strip Ketones NEGATIV NEG mg/dL No No May 09 E informa informa 2016 [Presen tion in tion in 7:33 PM ce] in source source Urine data data by Automat ed test strip Mucus NEGATIV NEG No No No May 09 [Presen E informa informa informa 2016 ce] in tion in tion in tion in 7:33 PM Urine source source source sedimen data data data t by Light microsc opy Nitrite NEGATIV NEG No No No May 09 E informa informa informa 2016 [Presen tion in tion in tion in 7:33 PM ce] in source source source Urine data data data by Test strip pH of 5.0 - 8.5 No Normal No May 09 Urine informati informati 2017 7:33 on in on in PM source source data data Protein NEG mg/dL No No May 09 [Mass/vol informati informati 2016 7:33 ume] in on in on in PM Urine by source source Automated data data test strip Specific 1.005 - No Normal No May 09 gravity 1.030 informati informati 2017 7:33 of Urine on in on in PM source source data data Urobili 0.2 NEG E.U./dL No No May 09 nogen informa informa 2016 [Presen tion in tion in 7:33 PM ce] in source source Urine data data by Test strip Hemoglobin.gastrointestinal [Presence] in Stool Observa Value Referen Units Interpr Notes Date tion ce etation Range Hemoglo POSITIV NEG No No No Apr 4 bin.gas E informa informa informa 2017 trointe tion in tion in tion in 8:30 AM stinal source source source [Presen data data data ce] in Stool --1st specime n Urinalysis dipstick W Reflex Microscopic panel in Urine Observa Value Referen Units Interpr Notes Date tion ce etation Range Appeara CLEAR CLEAR No No No Jan 6 nce of informa informa informa 2017 Urine tion in tion in tion in 9:00 AM source source source data data data Bacteri 1+ O No No No Jan 6 a informa informa informa 2016 [Presen tion in tion in tion in 9:00 AM ce] in source source source Urine data data data sedimen t by Light microsc opy Bilirub NEGATIV NEG No No No Ronnell 6 in E informa informa informa 2017 [Presen tion in tion in tion in 9:00 AM ce] in source source source Urine data data data by Test strip Erythro NEGATIV NEG No No No Ronnell 6 cytes E informa informa informa 2017 [Presen tion in tion in tion in 9:00 AM ce] in source source source Urine data data data Color YELLOW YELLOW No No No Ronnell 6 of informa informa informa 2017 Urine tion in tion in tion in 9:00 AM source source source data data data Glucose NEG No No No Ronnell 6 [Mass/vol informati informati informati 2017 9:00 ume] in on in on in on in AM Urine by source source source Test data data data strip Hyaline OCC NONE #/lpf No No Ronnell 6 casts informa informa 2017 [Presen tion in tion in 9:00 AM ce] in source source Urine data data sedimen t by Light microsc opy Ketones NEGATIV NEG mg/dL No No Ronnell 6 E informa informa 2017 [Presen tion in tion in 9:00 AM ce] in source source Urine data data by Automat ed test strip Mucus NEGATIV NEG No No No Ronnell 6 [Presen E informa informa informa 2017 ce] in tion in tion in tion in 9:00 AM Urine source source source sedimen data data data t by Light microsc opy Mucus 1+ NONE No No No Ronnell 6 [Presen informa informa informa 2016 ce] in tion in tion in tion in 9:00 AM Urine source source source sedimen data data data t by Light microsc opy Nitrite NEGATIV NEG No No No Ronnell 6 E informa informa informa 2017 [Presen tion in tion in tion in 9:00 AM ce] in source source source Urine data data data by Test strip pH of 5.0 - 8.5 No Normal No Ronnell 6 Urine informati informati 2017 9:00 on in on in AM source source data data Protein NEG mg/dL No No Ronnell 6 [Mass/vol informati informati 2017 9:00 ume] in on in on in AM Urine by source source Automated data data test strip Specific 1.005 - No Normal No Ronnell 6 gravity 1.030 informati informati 2017 9:00 of Urine on in on in AM source source data data Epithel OCC OCC #/hpf No No Jan 09 ial informa informa 2017 cells.s tion in tion in 9:00 AM quamous source source data data [Presen ce] in Urine sedimen t by Microsc opy high power field Urobili 0.2 NEG E.U./dL No No Jan 09 nogen informa informa 2017 [Presen tion in tion in 9:00 AM ce] in source source Urine data data by Test strip Leukocyte O wbc/hpf No No Jan 6 s informati informati 2017 9:00 [#/volume on in on in AM ] in source source Urine data data Urinalysis dipstick W Reflex Microscopic panel in Urine Observa Value Referen Units Interpr Notes Date tion ce etation Range Appeara CLEAR CLEAR No No No Jan 09 nce of informa informa informa 2017 Urine tion in tion in tion in 9:00 AM source source source data data data Bilirub NEGATIV NEG No No No Jan 09 in E informa informa informa 2016 [Presen tion in tion in tion in 9:00 AM ce] in source source source Urine data data data by Test strip Erythro NEGATIV NEG No No No Jan 09 cytes E informa informa informa 2016 [Presen tion in tion in tion in 9:00 AM ce] in source source source Urine data data data Color YELLOW YELLOW No No No Jan 09 of informa informa informa 2017 Urine tion in tion in tion in 9:00 AM source source source data data data Glucose NEG No No No Jan 09 [Mass/vol informati informati informati 2017 9:00 ume] in on in on in on in AM Urine by source source source Test data data data strip Ketones NEGATIV NEG mg/dL No No Jan 09 E informa informa 2016 [Presen tion in tion in 9:00 AM ce] in source source Urine data data by Automat ed test strip Mucus NEGATIV NEG No No No Jan 09 [Presen E informa informa informa 2016 ce] in tion in tion in tion in 9:00 AM Urine source source source sedimen data data data t by Light microsc opy Nitrite NEGATIV NEG No No No Jan 6 E informa informa informa 2016 [Presen tion in tion in tion in 9:00 AM ce] in source source source Urine data data data by Test strip pH of 5.0 - 8.5 No Normal No Ronnell 6 Urine informati informati 2017 9:00 on in on in AM source source data data Protein NEG mg/dL No No Jan 6 [Mass/vol informati informati 2017 9:00 ume] in on in on in AM Urine by source source Automated data data test strip Specific 1.005 - No Normal No Jan 09 gravity 1.030 informati informati 2017 9:00 of Urine on in on in AM source source data data Urobili 0.2 NEG E.U./dL No No Jan 6 nogen informa informa 2017 [Presen tion in tion in 9:00 AM ce] in source source Urine data data by Test strip
--- OUTSIDE RECORDS SUMMARY | 2017-05-17 17:29 | External Medical Summary Rpt | CCD ---
Demographics Preferred Language Cuban Marital Status Unknown Denominational Affiliation Unknown Race Unknown Ethnic Group Unknown Author Author , GRAHAM STEVENSON Address Unknown Phone Immunization No patient found.
== END 2017-05-09 23:06 | disposition home or self-care (01) ==
LOC: ER 19:08
PROVIDERS: Emergency Medicine
DX: N45.1 Epididymitis (principal); Z88.6 Allergy status to analgesic agent; Z79.82 Long term (current) use of aspirin; I25.10 Atherosclerotic heart disease of native coronary artery without angina pectoris; I10 Essential (primary) hypertension; K21.9 Gastro-esophageal reflux disease without esophagitis; E11.9 Type 2 diabetes mellitus without complications

== ENCOUNTER → 2017-05-18 | Outpatient (CLI) | payer MEDICARE, MEDICAID ==
--- NOTE | 2017-05-18 10:59 | RADIOLOGY REPORT PS360 ---
BARIUM ENEMA HISTORY: ANEMIA,BLOOD IN STOOL ORDERING PHYSICIAN: CHICA KELSEY MD PATIENT AGE: 56 years COMPARISON: None FINDINGS: Rn School exam is unremarkable. The colon visualized from rectum to cecum including terminal ileum. The appendix was not filled No annular constricting lesions or fixed polypoid filling defects are evident. Sparse diverticula are present in the sigmoid colon. No evidence of diverticulitis.. IMPRESSION: 1. Mild sigmoid diverticulosis. 2. Otherwise negative barium enema
--- NOTE | 2017-05-18 10:59 | RADIOLOGY REPORT PS360 ---
BARIUM ENEMA HISTORY: ANEMIA,BLOOD IN STOOL ORDERING PHYSICIAN: CHICA KELSEY MD PATIENT AGE: 56 years COMPARISON: None FINDINGS: Oxidized Finish Plater exam is unremarkable. The colon visualized from rectum to cecum including terminal ileum. The appendix was not filled No annular constricting lesions or fixed polypoid filling defects are evident. Sparse diverticula are present in the sigmoid colon. No evidence of diverticulitis.. IMPRESSION: 1. Mild sigmoid diverticulosis. 2. Otherwise negative barium enema
== END ==
LOC: RAD 08:43
DX: D64.9 Anemia, unspecified (principal); K92.1 Melena

== ENCOUNTER 2017-05-30 12:04 | Emergency (ER) | payer MEDICARE ==
[~2017-05-30] VITALS: Ht 157.5 cm; Wt 90.7 kg
[2017-05-30 12:18] LABS: LYMPH # 1.8 K/mm3 (0.7-4.5); LYMPH % 13.6 % (10-50)
--- NOTE | 2017-05-30 12:35 | Emergency Room Report ---
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 N Clinical Suspician of Infection? N Mental Status: 1 - Regular (Normal Baseline) Sepsis Risk:Low Sepsis Risk Have you (or family members/close friends) recently traveled outside the [place]? N If Yes, where/when: Have you had exposure to infectious disease within the past month? N TB? Other? Specify: Dry cough since last night, now it hurts to cough, left sided. Positive relief w / duoneb per EMS P[facility]. No SOB otherwise. No gina CP, no diaphoresis, no fever, no n/v, no myalgias, no congestion, no calf pain. Has oxygen dependent COPD. ALLERGIES Coded Allergies: morphine (Mild, "HURTS STOMACH" 09/04/16) Home Medications Active Scripts TAMSULOSIN HCL (Flomax 0.4MG) 0.4 MG PO QHS #30 CAP Ref 3 Prov: 07/19/15 ISOSORBIDE MONONITRATE (IMDUR 30MG) 30 MG PO DAILY #30 TAB Prov: 09/05/16 Ciprofloxacin HCl (Cipro 500MG TAB) 500 MG PO BID #14 TAB Prov: 05/09/17 Reported Medications Aripiprazole (Abilify) 10 MG PO DAILY Atorvastatin Calcium (Atorvastatin) 40 MG PO QHS Trazodone Hcl (Trazodone HCl) 100 MG PO BEDTIME ASPIRIN (Aspirin) 81 MG PO DAILY Prasugrel HCl (Effient) 10 MG PO DAILY OMEGA-3 ACID ETHYL ESTERS (Lovaza) 2 GM PO BID Pantoprazole Sodium (Pantoprazole 40MG) 40 MG PO DAILY LOPERAMIDE HCL (Loperamide) 2 MG PO Q4HP PRN DIARRHEA Guaifenesin (Robafen) 100 MG PO Q6HP PRN COUGH Tramadol Hcl (Tramadol 50MG) 50 MG PO BID Bupropion Hcl (Wellbutrin SR 200MG) 200 MG PO BID CITALOPRAM HYDROBROMIDE (Citalopram HBr) 20 MG PO DAILY DOCUSATE SODIUM (Stool Softener) 250 MG PO DAILY Furosemide (Lasix 40MG) 80 MG PO BID Levothyroxine Sodium (Levothyroxine) 0.05 MG PO DAILY Spironolactone (Aldactone 50MG Tablet) 50 MG PO BID Polyethylene Glycol 3350 (Miralax) 17 GM PO DAILY POTASSIUM CHL (Potassium Chloride) 20 MEQ PO BID Losartan Potassium (Losartan 50MG) 25 MG PO DAILY Dextran 70/Hypromellose (Artificials Tears Drops) 2 DROP OP TID Sitagliptin Phosphate (Januvia) 50 MG PO DAILY Loratadine (Loratadine 10MG Tablet) 10 MG PO DAILY MAGNESIUM OXIDE (Magnesium Oxide) 400 MG PO QHS METFORMIN HCL (Metformin) 1,000 MG PO BID Lorazepam (Ativan 1MG) 1 MG PO BID Acetaminophen (Tylenol XS 500MG) 500 MG PO Q4HP PRN PAIN Cyclobenzaprine Hcl (Cyclobenzaprine 10MG) 10 MG PO TID PRN LEG CRAMPS MAG HYDROX/AL HYDROX/SIMETH (Deana-Lanta Liquid) 30 ML PO Q4HP PRN UPSET STOMACH NITROGLYCERIN (Nitrostat) 0.4 MG SL [id number] PRN CHEST PAIN History Medical History General CAD? Yes Angina: Yes [place]: No Hypertension? Yes Hyperlipidemia? Yes CHF? No DVT? No PE? No COPD? No Asthma? No Anemia? No GERD? Yes Gastric ulcers? No GI Bleed? No Hernia? Yes Thyroid Problems? Yes Hypothyroidism? Yes CVA? Yes Seizures? Yes Diabetes? Yes Insulin Dependent: No Insulin Pump: No Home FSBS? Yes Renal Insuffiency? No End Stage Renal Disease? No UTI? No Stones? No BPH? No GB Disease: No Nephritic Syndrome? No Asplenia? No Hepatitis? No Sickle Cell Disease? No Arthritis? No Migraines? No Cataracts? No Glaucoma? No MRSA? No HIV? No TB? No Anxiety? Yes Depression? Yes Cancer? No More? Yes Additional hx: SCHIZOAFFECTIVE D/O, MILD MR Immunization Hx DT/Tetanus 1-4 Years Ago Flu [id number] Pneumonia Refuses Surgical Hx Previous Surgery?Y Hernia Repair WRIST X4 CYST REMOVAL ON BACK CARPEL TUNNEL BOTH SIDES STENTS CARDIAC STENT 02/25/16 Family History Family Hx Diabetes Yes CAD Yes Hypertension Yes Hyperlipidemia Yes Cancer No TB No Social History Smoking Hx Smoker: Never Smoker Tobacco: No Alcohol Alcohol: No Review of Systems All Other Systems Reviewed and Negative Respiratory see HPI Musculoskeletal see HPI Physical Exam Vital Signs Vital Signs Date Time Temp Pulse Resp B/P Pulse O2 O2 Flow FiO2 Ox Delivery Rate 05/30 1205 98.5 86 16 108/69 98 General Appearance normal appearance, WD/WN, no apparent distress Eye Exam - bilateral eye normal exam, bilateral eye PERRL, bilateral eye EOMI Neck normal inspection (thick neck), non-tender, supple, full range of motion Respiratory Status Yes: trachea midline, chest symmetrical, tender on palpation, non productive cough (on oxygen baseline). No: respiratory distress, non tender chest (L base pectoralissuperficially), use of accessory muscles, pain on inspiration, pain on expiration, productive cough. Lung Sounds bilateral: normal breath sounds, lungs clear, decreased breath sounds. 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 No Results/Orders Laboratory Tests 05/30/17 1205: Sodium 135 L, Potassium 4.4, Chloride 96 L, Carbon Dioxide 32, BUN 13, Creatinine 1.3, Estimated Creat Clear 80, Estimated GFR (MDRD) 57, Glucose 180 H, Calcium 9.2, Total Bilirubin 0.3, AST 14 L, ALT 24, Alkaline Phosphatase 103 , Total Protein 8.4 H, Albumin 3.2 L, Globulin 5.2 H, Albumin/Globulin Ratio 0.6 L, WBC 12.9 H, RBC 3.47 L, Hgb 10.0 L, Hct 32.6 L, MCV 94.1, RDW 15.3, Plt Count 427 H, MPV 7.4, Gran % 80.9 H, Gran # 10.5 H, Lymphocytes % 13.6, Monocytes % 3.7, Eosinophils % 1.3, Basophils % 0.6, Lymphocytes # 1.8, Monocytes # 0.5, Eosinophils # 0.2, Basophils # 0.1, PUBS MCHC 30.8 L, MCH 29.0 Current Medication Orders Sig/Betty Start time Last Medication Dose Route Stop Time Status Admin Acetaminophen 650 MG ONCE ONE 05/30 1230 DC 05/30 PO 05/30 1231 1229 Acetaminophen 0 .STK-MED ONE 05/30 1227 DC PO Sodium Chloride 10 ML PRN PRN 05/30 1215 AC IV 05/31 1209 Orders Procedure Date/time Status CHEST-PORTABLE 05/30 1230 Active IV SALINE LOCK 05/30 1210 Active CBC WITH AUTO DIFF 05/30 1210 Complete CHEM 12 PROFILE 05/30 1210 Complete XRAY/CT/US XRAY/CT/US XRAY chest XR interpretation by reviewed by me Xray Results normal/NAD, no change from 09/04/16; borderline CM c/w habitus Departure Departure Time of Disposition 1254 Disposition DC Home or Self Care(routine) Clinical Impression Primary Impression: Cough Secondary Impressions: Musculoskeletal pain Condition STABLE Referrals Darnell MEMBRENO,Werner Perera (PCP/Family) Patient Instructions Cough Additional Instructions Tylenol as needed for musculoskeletal pain associated with cough; continue breathing treatments as did well with duonebs today. Follow up with Dr. Patrick in one to two weeks. Discharge Counseling Counseled pt/family regarding diagnosis, test results, medications/RX, home care, follow up needs ED Critical Care Critical Care No at 1312
--- OUTSIDE RECORDS SUMMARY | 2017-05-30 13:05 | External Medical Summary Rpt | CCD ---
Author Author , GRAHAM Organization GRAHAM Address Unknown Phone [email or web address] Care Team Providers Care Outsole Leveler Name Role Phone [facility], [facility] Unavailable Unavailable [facility], [facility] Unavailable Unavailable RADHA BOY, RADHA Unavailable Unavailable BOY [facility] Unavailable Unavailable PHYSICANS M, [facility] M MEL, LEAL Unavailable Unavailable [facility] Unavailable Unavailable [facility], [facility] Unavailable Unavailable [facility], [facility] DESMOND CARLOS, Unavailable Unavailable DESMOND CARLOS ANJUR-KAPALI DAY, Unavailable Unavailable ANJUR-KAPALI DAY MAGDALENA FAD, MAGDALENA FAD Unavailable Unavailable [facility] Un[facility] [place] BEINEKE GILMA, BEINEKE Unavailable Unavailable GILMA BESSON JEANIE, BESSON Unavailable Unavailable JEANIE BESSON JEANIE, BESSON Unavailable Unavailable JEANIE ORDONEZ, ORDONEZ Unavailable Unavailable ORDONEZ ALL, ORDONEZ ALL Unavailable Unavailable BRAUDIS JAM, BRAUDIS Unavailable Unavailable JAM BRAUDIS JAM, BRAUDIS Unavailable Unavailable JAM [facility] Unavailable Unavailable SERVICE, [facility] Unavailable Unavailable SERVICE, [facility] DOBSON LAR, DOBSON LAR Unavailable Unavailable C ANTONETTE GEORGE MD Unavailable Unavailable PSC, Sheridan GEORGE [...] ERNST QUINTERO ERNST, Unavailable Unavailable QUINTERO ERNST [facility], Unavailable Unavailable [facility] VINH DYLAN, Unavailable Unavailable VINH DYLAN [facility] [...] ARMANDO SUAD ARMANDO, SUAD ARMANDO Unavailable Unavailable [facility] Unavailable Unavailable INC, [facility] Unavailable Unavailable HOSPITAL, [facility] Unavailable Unavailable HOSPITAL P, [facility] HEEB CHR, [facility] Unavailable Unavailable [facility] Unavailable Unavailable [facility] Unavailable Unavailable [facility], Unavailable Unavailable [facility] Unavailable [facility], [facility] KIERRA THO, KIERRA THO Unavailable Unavailable [facility] Un[facility] BRYANT, BRYANT Unavailable Unavailable BRYANT DEUCE, BRYANT Unavailable Unavailable DEUCE CHRIS EHSAN, CHRIS Unavailable Unavailable EHSAN HAROLDO JR DWI, HAROLDO Unavailable Unavailable JR DWI HAROLDO JR DWI, HAROLDO Unavailable Unavailable JR DWI [facility] Unavailable Unavailable 11, [facility] 11 [facility], Unavailable Unavailable [facility] Unavailable Unavailable ACTION, [facility] Kenya Patrick MD, Unavailable Unavailable Kenya BURRIS, Unavailable Unavailable ELENI BURRIS KNOWLES JAM, Unavailable Unavailable KNOWLES JAM BENAVIDES, BENAVIDES Unavailable Unavailable BENAVIDES JAM, Unavailable Unavailable BENAVIDES J[facility] Unavailable Unavailable MED[facility], [facility] Unavailable Unavailable MEDICAL, [facility], [facility] Unavailable Unavailable SERVICE, [facility] MONOHAN RONALD, MONOHAN Unavailable Unavailable RONALD SIEGEL JUAQUIN, SIEGEL Unavailable Unavailable JUAQUIN ONDINA, ONDINA Unavailable Unavailable ONDINA SHA, ONDINA Unavailable Unavailable SHA NEILS JONATHAN, NEILS JONATHAN Unavailable Unavailable [facility] Unavailable Unavailable URGENT TREAT, [facility] Unavailable Unavailable [...] [facility]AT[facility] Unavailable [facility], [facility]available [facility]available [facility], [facility], Unavailable Unavailable [facility] Unavailable Unavailable CLINIC, [facility] Unavailable Unavailable SURGERY C, [facility] Unavailable Unavailable HOSPITALS, [facility], Unavailable Unavailable [facility] WEHRMAN III MARCY, Unavailable Unavailable WEHRMAN III MARCY ZEKE BAR, ZEKE BAR Unavailable Unavailable ZEKE BAR, [facility] Unavailable Unavailable [facility], Unavailable Unavailable [facility] Purpose Continuity of Care Document - 12-28-2010 through 2016 Problems Code Diagnosis DOS Provider Status E119 TYPE 2 05-08-2017 [facility] WITHOUT COMPLICATIO NS R109 UNSPECIFIED 05-08-2017 [facility] D649 ANEMIA 04-24-2017 [facility] UNSPECIFIED [facility]OCIATES E6601 MORBID 04-24-2017 [facility] OBESITY DUE FOUNDATION TO EXCESS CALORIES J449 CHRONIC 04-24-2017 [facility] OB[facility]CTIVE [facility] PULMONARY FOUNDATION DISEASE UNS J9610 CHRONIC 04-24-2017 [facility] FAIL UNS FOUNDATION HYPOXIA/HYP ERCAPNIA J988 OTHER 04-24-2017 [facility] SPECIFIED SERV RESPIRATORY FOUNDATION DISORDERS N390 URINARY 04-07-2017 [facility] TRACT [facility] INFECTION INC SITE NOT SPECIFIED I2510 ASHD HOONAH 04-06-2017 [place] [facility] ARTERY W/O ANGINA PECTORIS R627 ADULT 04-06-2017 [facility] FAILURE TO HEALTH THRIVE ASSOCIATES G4733 OBSTRUCTIVE 04-04-2017 [facility] SLEEP [facility] APNEA ADULT INC PEDIATRIC I509 HEART 04-04-2017 [facility] FAILURE [facility] UNSPECIFIED INC R0602 SHORTNESS 04-04-2017 [place] [facility] R1310 DYSPHAGIA 04-04-2017 [place] U[facility]PECIFIED [facility]ICAL IMAGING ASS R5383 OTHER 04-04-2017 [facility] R942 ABNORMAL 04-04-2017 [facility] RESULTS OF [facility] PULMONARY INC FUNCTION STUDIES E162 HYPOGLYCEMI 03-27-2017 [facility] A HEALTH UNSPECIFIED ASSOCIATES X85145 OTHER LONG 03-21-2017 [facility] CURRENT ASSOCIATES DRUG THERAPY B351 TINEA 02-05-2017 SPECIAL UNGUIUM CARE PODIATRY OF YAMIL R75077 PAIN IN 02-05-2017 [facility] RIGHT TOES CARE PODIATRY OF [place] L96476 PAIN IN 02-05-2017 [facility] LEFT TOES CARE PODIATRY OF [place] R69 ILLNESS 01-16-2017 [facility] UNSPECIFIED TRANSPORTAT ION SER Z9989 DEPENDENCE 01-16-2017 [place] [facility] OTHER SERV ENABLING FOUNDATION MACHINES & DEVICES Y24852 PAIN IN 01-13-2017 [facility] RIGHT KNEE [facility] D63171 PAIN IN 01-13-2017 [facility] RIGHT LEG LLC S54670 PAIN IN 01-13-2017 [facility] RIGHT LOWER LLC LEG I10 ESSENTIAL 01-09-2017 [facility]IMARY [facility] HYPERTENSIO ASSOCIATES N R4182 ALTERED 01-09-2017 [facility] MENTAL HEALTH STATUS ASSOCIATES UNSPECIFIED R531 WEAKNESS 01-09-2017 [facility] Z7409 OTHER 01-09-2017 [facility] REDUCED [facility] MOBILITY INC I517 CARDIOMEGAL 01-08-2017 [facility] Y LLC M81482 PAIN IN 01-04-2017 [place] RIGHT WRIST MEDICAL IMAGING ASS M7989 OTHER 01-04-2017 [place] SPECIFIED MEDICAL SOFT TISSUE IMAGING ASS DISORDERS R609 EDEMA 01-04-2017 [facility] UNSPECIFIED [facility] HOS[facility] INC V79771 PAIN IN 01-01-2017 [facility] RIGHT LLC FOREARM M7541 IMPINGEMENT 12-28-2016 [facility] SYNDROME PHYSICIANS OF RIGHT GROUP SHOULDER E785 HYPERLIPIDE 12-19-2016 [facility] OSMANY PHYSICIANS UNSPECIFIED GROUP I119 HYPERTENSIV 12-19-2016 [facility] E HEART PHYSICIANS DISEASE GROUP WITHOUT HEART FAILURE N3000 ACUTE 12-12-2016 [facility] WITHOUT HOSPITAL P HEMATURIA I272 OTHER 11-27-2016 [facility] PULMONARY INC HYPERTENSIO N N3001 ACUTE 11-21-2016 [facility] WITH HOSPITAL P HEMATURIA Y13819 PAIN IN 11-16-2016 [place] RIGHT MEDICAL SHOULDER IMAGING ASS K140 GLOSSITIS 11-02-2016 [facility] PHYSICIANS GROUP R918 OTHER 10-11-2016 [facility] NONSPECIFIC LLC ABNORMAL FINDING OF LUNG FIELD R0682 TACHYPNEA 09-19-2016 [facility] NOT PHYSICIANS ELSEWHERE GROUP CLASSIFIED R072 PRECORDIAL 09-04-2016 [facility] PAIN PHYSICIANS, [facility] R0789 OTHER CHEST 09-04-2016 [facility] PAIN AMBULANCE SERVICE R079 CHEST PAIN 09-04-2016 [place] U[facility]PECIFIED [facility]ICAL IMAGING ASS Z955 PRESENCE OF 09-04-2016 [facility] P IMPLANT & GRAFT P33664 MECHANICAL 08-24-2016 [facility] PTOSIS OF SERV RIGHT FOUNDATION EYELID T31271 DERMATOCHAL 08-24-2016 [facility] ASIS OF SERV RIGHT EYE FOUNDATION UNSPECIFIED EYELID C60886 DERMATOCHAL 08-24-2016 [facility] AS[facility] OF SERV LEFT EYE FOUNDATION UNSPECIFIED EYELID G4730 SLEEP APNEA 06-07-2016 [facility] SERV UNSPECIFIED FOUNDATION E876 HYPOKALEMIA 05-29-2016 [facility] K219 GASTRO-ESOP 04-25-2016 [facility] REFLUX [facility] P WITHOUT ESOPHAGITIS A01331 SPONDYLOSIS 04-04-2016 [place] W/O MEDICAL MYELOPATH/R IMAGING ASS ADICULOPATH Y CERV RGN M5032 OTH CERV 04-04-2016 [place] DISC MEDICAL DEGENERATIO IMAGING ASS N MID-CERVICA L REGION M542 CERVICALGIA 04-04-2016 [place] [facility] M545 LOW BACK 04-04-2016 [place] PAIN MEDICAL IMAGING ASS M546 PAIN IN 04-04-2016 [place] THORACIC MEDICAL SPINE IMAGING ASS I883KLK UNSPECIFIED 04-04-2016 [place] INJURY OF MEDICAL NECK IMAGING ASS INITIAL ENCOUNTER M6318BD UNSPECIFIED 04-04-2016 [place] INJURY MEDICAL LOWER BACK IMAGING ASS INITIAL ENCOUNTER K449 DIAPHRAGMAT 03-03-2016 [facility] IC HERNIA [facility] W/O HOSPITAL P OBSTRUCTION OR GANGRENE K05747 PERSONAL 03-03-2016 [facility] HISTORY OF [facility] NICOTINE [facility] P DEPENDENCE I208 OTHER FORMS 02-25-2016 [facility] OF ANGINA PHYSICIANS PECTORIS GROUP Y09287 [facility] HO[facility] 02-25-2016 [facility] COR ART PHYSICIANS W/UNSTABLE GROUP ANGINA PECTORIS E662 MORBID 02-21-2016 [facility] SEVERE [facility] OBESITY HOSPITAL P W/ALVEOLAR HYPOVENTILA TION O13324 [facility] HO[facility] 02-21-2016 [facility]S [facility] P ANGINA PECTORIS M654 RADIAL 02-16-2016 [facility] STYLOID [facility] TENOSYNOVIT INC IS DE QUERVAIN X30228 OTHER 02-16-2016 [facility] SYNOVITIS [facility] AND INC TENOSYNOVIT IS RIGHT HAND I209 ANGINA 12-08-2015 [place] [facility]AL UNSPECIFIED MEDICAL O60075 [facility] HO[facility] 12-08-2015 [facility] COR ART PHYSICIANS W/OTH FORMS GROUP ANGINA PECTORIS R0600 DYSPNEA 11-29-2015 [facility] UNSPECIFIED [facility] HOS[facility] INC W293H1E CONCUSSION 11-20-2015 [facility] W/LOC 30 [facility] P INITIAL ENCOUNTER A3896WM UNSPECIFIED 11-20-2015 [facility] INJURY OF MEDICAL HEAD IMAGING ASS INITIAL ENCOUNTER I474PHQ STRAIN 11-20-2015 [facility] MUSCLE [facility] P NECK LEVL INIT ENC [id number] CONTUSION 11-20-2015 [facility] UNS BACK [facility] THORAX [facility] P INITIAL ENCOUNTER Z043 ENCOUNTER 11-20-2015 [place] EXAM & MEDICAL OBSERVATION IMAGING ASS FOLLOW OT ACCIDENT R339 RETENTION 07-12-2015 BESSON JEANIE OF URINE UNSPECIFIED Y97623 PAIN IN 06-30-2015 [place] LEFT MEDICAL FINGERS IMAGING ASS W9869BB UNSPECIFIED 06-30-2015 [facility] MEDICAL WRIST HAND IMAGING ASS FINGERS INITIAL B353 TINEA PEDIS 06-08-2015 [facility] INC 69893 OBSTRUCTIVE 05-04-2015 [facility] [place] [place] [facility] [place] 07226 UNSPEC HTN 05-04-2015 [facility] HEART LAR DISEASE [facility]ANT[facility] WITHOUT O HEART FAIL 68065 COR 05-04-2015 [facility] ATHEROSLERO [facility] UNSPEC INC TYPE VESSEL HOONAH/MAHSA T 4160 PRIMARY 05-04-2015 [facility] PULMONARY LAR HYPERTENSIO CONSULTANTS N O 4168 OTHER 05-04-2015 [facility] CHRONIC [facility] PULMONARY INC HEART DISEASES 496 CHRONIC 05-04-2015 [facility] AIRWAY [facility] OBSTRUCTION INC NEC 90795 05-04-2015 [facility] ION SER V7284 UNSPECIFIED 05-04-2015 [facility] PRE-OPERATI INC VE EXAMINATION 3699 UNSPECIFIED 04-28-2015 [facility] LOSS 01958 UNSPECIFIED 04-28-2015 [facility] EYELID V7283 OTHER 04-28-2015 [facility] PRE-OPERATI VE EXAMINATION 48015 ACUTE 02-16-2015 [facility] RESPIRATORY FAILURE 4111 INTERMEDIAT 01-25-2015 [facility] E CORONARY LAR SYNDROME CONSULTANTS O 4293 CARDIOMEGAL 01-23-2015 [place] Y [facility] 5920 CALCULUS OF 01-23-2015 [place] KIDNEY [facility]ICAL [facility] ASS 55256 UNSPECIFIED 01-23-2015 [place] RETENTION MEDICAL OF URINE IMAGING ASS 90150 ABDOMINAL 01-23-2015 [place] PAIN RIGHT MEDICAL LOWER IMAGING ASS QUADRANT 62213 PAIN IN 01-03-2015 [place] JOINT MEDICAL PELVIC IMAGING ASS REGION AND THIGH 77547 DISPLCMT 01-03-2015 [place] THOR MEDICAL INTERVERT IMAGING ASS DISC WITHOUT MYELOPATHY 7231 CERVICALGIA 01-03-2015 [facility] [facility] 7241 PAIN IN 01-03-2015 [place] THORACIC MEDICAL SPINE IMAGING ASS 60120 CHEST PAIN 01-03-2015 [place] UNSPECIFIED MEDICAL IMAGING ASS 18523 HYPERTENSIV 12-28-2014 [facility] E HEART [facility] DISEASE INC UNSPEC W/HEART FAIL 4280 CONGESTIVE 12-28-2014 [facility] HEART [facility] FAILURE INC UNSPECIFIED 21459 ESOPHAGEAL 12-28-2014 [facility] REFLUX [facility] INC 59154 SHORTNESS 12-28-2014 [place] OF BREATH MEDICAL IMAGING ASS 72059 OTHER 12-18-2014 [facility] DYSPNEA AND [place] [address] MECHANICAL 04-01-2014 [facility] PTOS[facility] SERV FOUNDATION 2449 UNSPECIFIED 03-18-2014 [facility] HOSP HYPOTHYROID INC ISM 94287 PANNUS 02-18-2014 [facility] SERV [facility]OUND[facility] 5950 ACUTE 12-18-2013 [facility] CYSTITIS [facility] P 29985 NOCTURNAL 12-18-2013 [facility] ENURESIS [facility] P 90414 OTHER 11-24-2013 [facility] MUCOPURULEN T CONJUNCTIVI TIS 81478 UNSPECIFIED 10-02-2013 [facility] P E 3831 CHRONIC 09-05-2013 [facility] MASTOIDITIS [facility] INC 3839 UNSPECIFIED 09-05-2013 [facility] MASTOIDITIS INC 25008 UNSPECIFIED 09-05-2013 [facility] OTALGIA [facility] INC 470 DEVIATED 09-05-2013 [place] NASAL MEDICAL SEPTUM IMAGING ASS 07147 OTHER 09-05-2013 [place] DISEASES OF MEDICAL NASAL IMAGING ASS CAVITY AND SINUSES 48293 ARTHRALGIA 09-05-2013 [facility] OF MEM [facility]OS[facility] TEMPOROMAND INC IBULAR JOINT 13446 PAIN IN 08-15-2013 [facility] JOINT, PHYSICIANS FOREARM GROUP 40203 PAIN IN 08-15-2013 [facility] JOINT, [facility] LOWER LEG INC 54778 PLICA 08-15-2013 [facility] SYNDROME PHYSICIANS GROUP 3540 CARPAL 06-23-2013 [facility] TUNNEL [facility] SYNDROME INC V5869 LONG-TERM 06-23-2013 [facility] (CURRENT) [facility] USE OF INC OTHER MEDICATIONS 2724 OTHER AND 05-23-2013 [facility] P HYPERLIPIDE OSMANY 5180 PULMONARY 05-23-2013 [place] COLLAPSE [facility]ICAL IMAG[facility] ASS 37050 ACUTE 05-08-2013 ELENI FOLLICULAR JAM CONJUNCTIVI TIS 95307 CONTACT AND 05-08-2013 [facility] ALLERGIC JAM DERMATITIS OF EYELID 68989 VITREOUS 05-08-2013 [facility] DEGENERATIO JAM N 3688 OTHER 04-16-2013 [facility] SPECIFIED NEUROLOGY VISUAL CENTER [place] DISTURBANCE S 7820 DISTURBANCE 04-16-2013 [facility] OF SKIN NEUROLOGY SENSATION CENTER [place] 1101 DERMATOPHYT 04-11-2013 RAMÍREZ BURRIS OSIS OF NAIL 86082 ATHEROSCLER 04-11-2013 RAMÍREZ BURRIS OSIS [place]ON[place] ART EXTREMITIES UNSPEC 7011 ACQUIRED 04-11-2013 BRAFERNANDA BURRIS KERATODERMA 7295 PAIN IN 04-11-2013 BRAUDIS JAM SOFT TISSUES OF LIMB 09790 SPONDYLOSIS 03-19-2013 [place] UNSPEC MEDICAL SITE W/O IMAGING ASS MENTION MYELOPATHY 7238 OTHER 03-19-2013 [place] SYNDROMES MEDICAL AFFECTING IMAGING ASS CERVICAL REGION 02269 DIAB W/O 02-13-2013 [facility] COMP TYPE [facility] II/UNS NOT INC STATED UNCNTRL 47581 BARRETTS 02-13-2013 [facility] ESOPHAGUS SUNITHA & DUBILIER 7871 HEARTBURN 02-13-2013 [facility] INC 48313 ONYCHIA AND 02-06-2013 [facility] PARONYCHIA AND ANKLE OF TOE CENTER 7030 INGROWING 02-06-2013 [facility] NAIL AND ANKLE CENTER 340 MULTIPLE 01-30-2013 [facility] SCLEROSIS [facility] 4149 UNSPECIFIED 01-30-2013 [facility] CHRONIC [facility] ISCHEMIC HOSPITAL HEART DISEASE 01422 OTHER 01-30-2013 [facility] CONVULSIONS [facility] 85326 UNSPECIFIED 01-30-2013 [facility] SLEEP [facility] 599.70 599.70 01-16-2013 [place] HEMATURIA, [facility] UNSPECIFIED Hospital 782.0 782.0 SKIN 01-16-2013 [place] SENSATION [facility] DISTURB Hospital 786.05 786.05 01-16-2013 [place] SHORTNESS [facility] OF BREATH [facility] 96794 HEMATURIA 01-15-2013 [facility] 29381 ABDOMINAL 01-15-2013 [facility] PAIN, AMBULANCE UNSPECIFIED SERVICE SITE 00277 PUNCTATE 01-08-2013 [facility] EMERGENCY PHYSI 05801 BLEPHARITIS 01-08-2013 [facility] UNSPECIFIED V7644 SPECIAL 11-13-2012 COMBINED SCREENING PHYSICIANS MALIGNANT LA NEOPLASM OF PROSTATE 5990 URINARY 11-11-2012 COMBINED TRACT PHYSICIANS INFECTION LA SITE NOT SPECIFIED 4019 UNSPECIFIED 10-28-2012 [facility] ESSENTIAL CARDIOLOGY HYPERTENSIO CLINIC N 88636 CORONARY 10-28-2012 [facility] ATHEROSCLER CARDIOLOGY [facility] CLINIC CORONARY ARTERY 45395 PAIN IN 10-27-2012 [facility], [place] [address] PAIN IN 10-27-2012 [facility], MOBILE UPPER ARM DIAGNOSTIC SE 7823 EDEMA 09-19-2012 BRAUDIS JAM 60623 DIVERTICULO 08-08-2012 [facility] SIS OF MEM HOS[facility] COLON INC 5693 HEMORRHAGE 08-08-2012 [facility] OF RECTUM [facility] AND ANUS INC V160 FM HX 08-01-2012 C ANTONETTE MALIGNANT DORIS NEOPLASM PSC GASTROINTES TINAL TRACT V7651 SPECIAL 08-01-2012 C ANTONETTE SCREENING DORIS FOR PSC MALIGNANT NEOPLASMS COLON 4139 OTHER AND 03-25-2012 HAROLDO MARTINEZ UNSPECIFIED DWI ANGINA PECTORIS 5533 DIAPHRAGMAT 03-10-2012 [facility] W/O MEDICAL MENTION IMAGING ASS OBSTRUCTION /GANGREN 5718 OTHER 03-10-2012 [place] CHRONIC MEDICAL NONALCOHOLI IMAGING ASS C LIVER DISEASE 5939 UNSPECIFIED 03-10-2012 [place] DISORDER MEDICAL OF KIDNEY IMAGING ASS AND URETER 7881 DYSURIA 03-07-2012 [facility] HOSP INC 4589 UNSPECIFIED 03-04-2012 WEHRMAN III MARCY HYPOTENSION 5849 ACUTE 03-04-2012 WEHRMAN III KIDNEY MARCY FAILURE UNSPECIFIED 7224 DEGENERATIO 01-25-2012 [place] N OF MEDICAL CERVICAL IMAGING ASS INTERVERTEB RAL DISC 7842 SWELLING 01-25-2012 WEHRMAN III MASS OR MARCY LUMP IN HEAD AND NECK 7856 ENLARGEMENT 01-25-2012 [place] OF LYMPH MEDICAL NODES IMAGING ASS 68413 DYSPHAGIA 01-25-2012 [facility] UNSPECIFIED AMBULANCE SERVICE 1122 CANDIDIASIS 01-11-2012 [facility] MARCY OF OTHER UROGENITAL SITES 52481 OTHER 01-11-2012 [facility] CANDIDIASIS [facility]OS[facility] OF OTHER INC SPECIFIED SITES 7912 HEMOGLOBINU 01-11-2012 [facility] SHARON AMBULANCE SERVICE 67574 NONSPECIFIC 09-11-2011 Z[facility] BAR ABNORMAL ELECTROCARD IOGRAM 41655 HYPERSOMNIA 07-18-2011 [facility] WITH SLEEP ERNST APNEA UNSPECIFIED 06826 ABDOMINAL 07-04-2011 [facility] PAIN, AMBULANCE PERIUMBILIC SERVICE 6010 ACUTE 07-03-2011 [facility] ARMANDO PROSTATITIS 6019 UNSPECIFIED 07-03-2011 [facility] PROSTATITIS INC 19045 ASTHMA, 06-14-2011 BESSON JEANIE UNSPECIFIED , UNSPECIFIED STATUS 49986 OTHER CHEST 06-14-2011 [facility] JEANIE PAIN 27122 OTHER 06-13-2011 [place] NONSPECIFIC MEDICAL ABNORMAL IMAGING ASS FINDING OF LUNG FIELD 36337 MORBID 05-31-2011 [facility] OBESITY SERV FOUNDATIO 4778 ALLERGIC 05-31-2011 [facility] RHINITIS SERV DUE TO FOUNDATIO OTHER ALLERGEN 02025 APNEA 05-31-2011 [facility] HOSP INC 7019 UNSPECIFIED 05-19-2011 OR[facility] PATHOLOGY HYPERTROPHI LABORATORY C&ATROPHIC CONDITION SKIN 5210 DENTAL 05-16-2011 THE IMPLANT CARIES & ORAL SURGERY C 38971 UNSPECIFIED 05-08-2011 [facility] BLEPHAROCON JUNCTIVITIS 7862 COUGH 04-26-2011 [facility] 24559 UNSPECIFIED 03-30-2011 [place] [facility] [place] CONJUNCTIVI URGENT TIS TREAT 23699 PAIN IN 03-30-2011 [facility], HAND MOBILE DIAGNOSTIC SE 6961 OTHER 03-23-2011 [facility] [place] PSORIASIS URGENT AND SIMILAR TREATMENT A DISORDERS 99719 OBESITY, 03-12-2011 [facility] [place] UNSPECIFIED URGENT TREATMENT A 79341 INSOMNIA 03-12-2011 [facility] [place] UNSPECIFIED URGENT TREATMENT A 514 PULMONARY 03-02-2011 [facility] CONGESTION MOBILE AND DIAGNOSTIC HYPOSTASIS SE 7242 LUMBAGO 02-25-2011 [place] [place] URGENT TREATMENT A 7245 UNSPECIFIED 02-10-2011 [facility] V771 SCREENING 02-10-2011 [facility] PRACT [facility]OC DIABETES OF [place] PS MELLITUS 5968 OTHER 12-28-2010 [facility] [place] SPECIFIED RADIOLOGY DISORDERS OF BLADDER 16452 DIARRHEA 12-28-2010 [facility] M [...] ia de te s n re d BRYAN 00 03 10 0 30 7 ME 15 GA Ac BR 90 -1 -1 0. D 13 IN ti IC 46 8- 6- 00 CA 30 EY ve AT 32 20 20 0 RE 34 IN 94 17 17 MT G [address] AR AE US MA L CY S 0. 5% LL C EY E DR PS TR 45 01 10 0 85 10 ME 15 GA Ac OL 80 -1 -1 0. D 13 IN ti AM 20 4- 6- 00 CA 30 EY ve IN 35 20 20 0 RE 35 E 65 17 17 MT SA 3 PH CH LI AR AE CY MA L LA CY S TE LL 10 C % CR EA M MA 00 06 10 0 30 30 ME 15 GA Ac GN 60 -2 -1 0. D 11 IN ti ES 30 1- 4- 00 CA 55 EY ve IU 20 20 20 0 RE 26 M 92 17 17 MT OX 2 PH CH ID AR AE E MA L 40 CY S 0 MG LL C TA BL ET SM 49 10 10 0 29 1 ME 15 GA Ac 34 -0 -1 60 D 11 IN ti MA 80 6- 1- .0 CA 02 EY ve GN 69 20 20 00 RE 11 ES 64 17 17 MT IU 9 PH CH M AR AE CI MA L TR CY S AT E LL SO C BRYAN TI ON ST 00 03 10 0 30 30 ME 15 GA Ac OO 53 -1 -0 0. D 04 IN ti L 61 9- 2- 00 CA 39 EY ve SO 06 20 20 0 RE 09 FT 41 17 17 MT EN 0 PH CH ER AR AE MA L 25 CY S 0 MG LL C SO FT GE L LO 00 03 10 0 30 30 ME 15 GA Ac RA 78 -1 -0 0. D 04 IN ti TA 15 9- 2- 00 CA 39 EY ve DI 07 20 20 0 RE 10 NE 70 17 17 MT 1 PH CH 10 AR AE MA L MG CY S TA LL BL C ET BRYAN 00 03 09 0 30 7 ME 15 GA Ac BR 90 -1 -2 0. D 04 IN ti IC 46 8- 9- 00 CA 01 EY ve AT 32 20 20 0 RE 54 IN 94 17 17 MT G [address] AR AE US MA L CY S 0. 5% LL C EY E DR PS 00 03 09 0 30 30 ME 15 GA Ac PI 90 -1 -2 0. D 00 IN ti RI 46 9- 6- 00 CA 60 EY ve N 28 20 20 0 RE 67 81 88 17 17 MT 9 PH CH MG AR AE MA L CH CY S EW AB LL LE C TA BL ET MA 00 06 09 0 30 30 ME 14 GA Ac GN 60 -2 -1 0. D 94 IN ti ES 30 1- 5- 00 CA 75 EY ve IU 20 20 20 0 RE 67 M 92 17 17 MT OX 2 PH CH ID AR AE E MA L 40 CY S 0 MG LL C TA BL ET AC 00 03 09 0 35 15 ME 14 GA Ac ID 90 -0 -1 50 D 96 IN ti 47 4- 5- .0 CA 35 EY ve GO 72 20 20 00 RE 99 NE 71 17 17 MT 4 PH CH AN AR AE TA MA L CI CY S D LI LL QU C ID LO 00 03 09 0 30 30 ME 14 GA Ac RA 78 -1 -0 0. D 87 IN ti TA 15 9- 2- 00 CA 29 EY ve DI 07 20 20 0 RE 29 NE 70 17 17 MT 1 PH CH 10 AR AE MA L MG CY S TA LL BL C ET ST 00 03 09 0 30 30 ME 14 GA Ac OO 53 -1 -0 0. D 87 IN ti L 61 9- 2- 00 CA 29 EY ve SO 06 20 20 0 RE 28 FT 41 17 17 MT EN 0 PH CH ER AR AE MA L 25 CY S 0 MG LL C SO FT GE L 00 03 08 0 30 30 ME 14 GA Ac PI 90 -1 -2 0. D 83 IN ti RI 46 9- 8- 00 CA 86 EY ve N 28 20 20 0 RE 95 81 88 17 17 MT 9 PH CH MG AR AE MA L CH CY S EW AB LL LE C TA BL ET BRYAN 00 03 08 0 30 7 ME 14 GA Ac BR 90 -1 -2 0. D 82 IN ti IC 46 8- 4- 00 CA 01 EY ve AT 32 20 20 0 RE 42 IN 94 17 17 MT G [address] AR AE US MA L CY S 0. 5% LL C EY E DR JORDON BRYAN 00 03 08 0 30 7 ME 14 GA Ac BR 90 -1 -1 0. D 79 IN ti IC 46 8- 8- 00 CA 87 EY ve AT 32 20 20 0 RE 03 IN 94 17 17 MT G [address] AR AE US MA L CY S 0. 5% LL C EY E DR JORDON MA 00 06 08 0 30 30 ME 14 GA Ac GN 60 -2 -1 0. D 77 IN ti ES 30 1- 6- 00 CA 18 EY ve IU 20 20 20 0 RE 99 M 92 17 17 MT OX 2 PH CH ID AR AE E MA L 40 CY S 0 MG LL C TA BL ET ST 00 03 08 0 30 30 ME 14 GA Ac OO 53 -1 -0 0. D 70 IN ti L 61 9- 4- 00 CA 77 EY ve SO 06 20 20 0 RE 91 FT 41 17 17 MT EN 0 PH CH ER AR AE MA L 25 CY S 0 MG LL C SO FT GE L LO 00 03 08 0 30 30 ME 14 GA Ac RA 78 -1 -0 0. D 70 IN ti TA 15 9- 4- 00 CA 77 EY ve DI 07 20 20 0 RE 92 NE 70 17 17 MT 1 PH CH 10 AR AE MA L MG CY S TA LL BL C ET 00 03 07 0 30 30 ME 14 GA Ac PI 90 -1 -3 0. D 69 IN ti RI 46 9- 1- 00 CA 21 EY ve N 28 20 20 0 RE 07 81 88 17 17 MT 9 PH CH MG AR AE MA L CH CY S EW AB LL LE C TA BL ET BRYAN 00 03 07 0 30 7 ME 14 GA Ac BR 90 -1 -2 0. D 68 IN ti IC 46 8- 9- 00 CA 73 EY ve AT 32 20 20 0 RE 52 IN 94 17 17 MT G [address] AR AE US MA L CY S 0. 5% LL C EY E DR JORDON MA 00 06 07 0 30 30 ME 14 GA Ac GN 60 -2 -1 0. D 63 IN ti ES 30 1- 9- 00 CA 33 EY ve IU 20 20 20 0 RE 43 M 92 17 17 MT OX 2 PH CH ID AR AE E MA L 40 CY S 0 MG LL C TA BL ET AC 00 03 07 0 35 15 ME 14 GA Ac ID 90 -0 -1 50 D 62 IN ti 47 4- 8- .0 CA 01 EY ve GO 72 20 20 00 RE 68 NE 71 17 17 MT 4 PH CH AN AR AE TA MA L CI CY S D LI LL QU C ID BRYAN 00 03 07 0 30 7 ME 14 GA Ac BR 90 -1 -1 0. D 60 IN ti IC 46 8- 5- 00 CA 60 EY ve AT 32 20 20 0 RE 69 IN 94 17 17 MT G [address] AR AE US MA L CY S 0. 5% LL C EY E DR JORDON LO 00 03 07 0 30 30 ME 14 GA Ac RA 78 -1 -0 0. D 53 IN ti TA 15 9- 6- 00 CA 43 EY ve DI 07 20 20 0 RE 02 NE 70 17 17 MT 1 PH CH 10 AR AE MA L MG CY S TA LL BL C ET ST 00 03 07 0 30 30 ME 14 GA Ac OO 53 -1 -0 0. D 53 IN ti L 61 9- 6- 00 CA 43 EY ve SO 06 20 20 0 RE 01 FT 41 17 17 MT EN 0 PH CH ER AR AE MA L 25 CY S 0 MG LL C SO FT GE L 00 03 07 0 30 30 ME 14 GA Ac PI 90 -1 -0 0. D 50 IN ti RI 46 9- 3- 00 CA 60 EY ve N 28 20 20 0 RE 43 81 88 17 17 MT 9 PH CH MG AR AE MA L CH CY S EW AB LL LE C TA BL ET BRYAN 00 03 06 0 30 7 ME 14 GA Ac BR 90 -1 -3 0. D 50 IN ti IC 46 8- 0- 00 CA 79 EY ve AT 32 20 20 0 RE 90 IN 94 17 17 MT G [address] AR AE US MA L CY S 0. 5% LL C EY E DR RUVALCABA BRYAN 00 03 06 0 30 7 ME 14 GA Ac BR 90 -1 -1 0. D 42 IN ti IC 46 8- 7- 00 CA 66 EY ve AT 32 20 20 0 RE 58 IN 94 17 17 MT G [address] AR AE US MA L CY S 0. 5% LL C EY E DR PS AC 00 03 06 0 35 15 ME 14 GA Ac ID 90 -0 -1 50 D 41 IN ti 47 4- 6- .0 CA 27 EY ve GO 72 20 20 00 RE 46 NE 71 17 17 MT 4 PH CH AN AR AE TA MA L CI CY S D LI LL QU C ID ST 00 03 06 0 30 30 ME 14 GA Ac OO 53 -1 -0 0. D 33 IN ti L 61 9- 7- 00 CA 82 EY ve SO 06 20 20 0 RE 41 FT 41 17 17 MT EN 0 PH CH ER AR AE MA L 25 CY S 0 MG LL C SO FT GE L LO 00 03 06 0 30 30 ME 14 GA Ac RA 78 -1 -0 0. D 33 IN ti TA 15 9- 7- 00 CA 82 EY ve DI 07 20 20 0 RE 42 NE 70 17 17 MT 1 PH CH 10 AR AE MA L MG CY S TA LL BL C ET RO 00 03 06 0 47 10 ME 14 GA Ac BA 90 -1 -0 30 D 33 IN ti FE 40 9- 5- .0 CA 30 EY ve N 06 20 20 00 RE 41 10 11 17 17 MT 0 6 PH CH MG AR AE /5 MA L CY S ML LL SY C RU P 00 03 06 0 30 30 ME 14 GA Ac PI 90 -1 -0 0. D 31 IN ti RI 46 9- 3- 00 CA 43 EY ve N 28 20 20 0 RE 67 81 88 17 17 MT 9 PH CH MG AR AE MA L CH CY S EW AB LL LE C TA BL ET MA 00 03 06 0 30 5 ME 14 GA Ac PA 90 -1 -0 0. D 31 IN ti P 41 9- 2- 00 CA 57 EY ve 50 98 20 20 0 RE 45 0 86 17 17 MT MG 1 PH CH AR AE TA MA L BL CY S ET LL C MA 00 12 05 0 30 30 ME 14 GA Ac GN 60 -0 -2 0. D 24 IN ti ES 30 3- 4- 00 CA 08 EY ve IU 20 20 20 0 RE 98 M 92 16 17 MT OX 2 PH CH ID AR AE E MA L 40 CY S 0 MG LL C TA BL ET BRYAN 00 03 05 0 50 7 ME 14 GA Ac BR 90 -1 -2 0. D 23 IN ti IC 46 8- 2- 00 CA 59 EY ve AT 32 20 20 0 RE 61 IN 95 17 17 MT G [address] AR AE US MA L CY S 0. 5% LL C EY E DR PS AC 00 03 05 0 35 15 ME 14 GA Ac ID 90 -0 -1 50 D 22 IN ti 47 4- 8- .0 CA 17 EY ve GO 72 20 20 00 RE 35 NE 71 17 17 MT 4 PH CH AN AR AE TA MA L CI CY S D LI LL QU C ID ST 00 03 05 0 30 30 ME 14 GA Ac OO 53 -1 -1 0. D 17 IN ti L 61 9- 0- 00 CA 23 EY ve SO 06 20 20 0 RE 20 FT 41 17 17 MT EN 0 PH CH ER AR AE MA L 25 CY S 0 MG LL C SO FT GE L LO 00 03 05 0 30 30 ME 14 GA Ac RA 78 -1 -1 0. D 17 IN ti TA 15 9- 0- 00 CA 23 EY ve DI 07 20 20 0 RE 21 NE 70 17 17 MT 1 PH CH 10 AR AE MA L MG CY S TA LL BL C ET 00 03 05 0 30 30 ME 14 GA Ac PI 90 -1 -0 0. D 14 IN ti RI 46 9- 5- 00 CA 96 EY ve N 28 20 20 0 RE 45 81 88 17 17 MT 9 PH CH MG AR AE MA L CH CY S EW AB LL LE C TA BL ET BRYAN 00 03 05 0 30 7 ME 14 GA Ac BR 90 -1 -0 0. D 15 IN ti IC 46 8- 5- 00 CA 88 EY ve AT 32 20 20 0 RE 83 IN 94 17 17 MT G [address] AR AE US MA L CY S 0. 5% LL C EY E DR PS MA 00 12 04 0 30 30 ME 14 GA Ac GN 60 -0 -2 0. D 09 IN ti ES 30 3- 6- 00 CA 84 EY ve IU 20 20 20 0 RE 88 M 92 16 17 MT OX 2 PH CH ID AR AE [...] AR AR ME MA D CY W UT OT LL EC C T PA ST E RE 53 11 11 0 11 5 ME 13 AR Ac ME 32 -2 -2 30 D 36 NO ti DY 90 8- 8- .0 CA 88 LD ve 16 20 20 00 RE 63 CA 54 16 16 RI LA 4 PH CH ZI AR AR ME MA D CY W UT OT LL EC C T PA ST [...] AR AR ME MA D CY W UT OT LL EC C T PA ST [...] AR AR ME MA D CY W UT OT LL EC C T PA ST [...] AR AR ME MA D CY W UT OT LL EC C T PA ST E 63 08 08 0 30 30 ME [...] AR AR ME MA D CY W UT OT LL EC C T PA ST [...] W ML LL SY C RU P Le 51 09 0 No vo 07 [...] TA CY W BL ET LL C UT 37 08 10 3 30 30 ME [...] TA CY W BL ET LL C UT 37 08 09 3 30 30 ME [...] D BL CY W ET LL C UT 37 08 08 3 30 30 ME [...] sedimen t by Light microsc opy Epithel 3-5 OCC complet ial 017 ed cells.s [...] sedimen t by Light microsc opy Hyaline OCC NONE complet casts 017 ed [Presen [...] DIPSTIC K URINE 05-02-2 NEGATIV NEG complet LEUK 013 E ed ESTERAS 18:50 E URINE 05-02-2 OCC 0 complet RBC 013 rbc/hpf ed 18:50 URINE 05-02-2 5-10 OCC complet SQUAMOU 013 #/hpf ed S CELLS 18:50 URINE 05-02-2 TRACE O complet BACTERI 013 ed A 18:50 COMPREHENSIVE METABOLIC PANEL (01-16-2013 00:25) Glucose 146 74-106 complet 013 mg/dL ed Bld-mCn 00:25 c BUN 14 7-18 complet Bld-mCn 013 mg/dL ed c 00:25 Creat 1.2 0.8-1.3 complet SerPl-m 013 mg/dL ed Cnc 00:25 ESTIMAT 107 50-200 complet ED 013 ML/MIN ed CREATIN 00:25 INE CLEARAN CE GFR 63 Greater complet (ESTIMA 013 ML/MIN than ed COURT) 00:25 60 Sodium 139 136-145 complet SerPl-s 013 mmoL/L ed Cnc 00:25 Potassi 01-16-2 4.0 3.5-5.1 complet um 013 mmoL/L ed SerPl-s 00:25 Cnc Chlorid 01-16-2 103 98-107 complet e 013 mmoL/L ed SerPl-s 00:25 Cnc CO2 01-16-2 27 21.0-32 complet SerPl-s 013 mmoL/L .0 ed Cnc 00:25 Calcium 01-16-2 8.4 8.5-10. complet 013 mg/dL 1 ed SerPl-m 00:25 Cnc Prot 13-2 7.4 6.4-8.2 complet SerPl-m 013 gm/dL ed Cnc 00:25 Albumin 01-16-2 3.1 3.4-5.0 complet 013 gm/dL ed SerPl-m 00:25 Cnc Globuli 01-16-2 4.3 1.3-3.2 complet n 013 gm/dL ed Ser-mCn 00:25 c Albumin 01-16-2 0.7 UNK 1.1-1.8 complet /Glob 013 ed SerPl-m 00:25 Rto Bilirub 01-16-2 0.2 0.2-1.0 complet 013 mg/dL ed SerPl-m 00:25 Cnc AST 01-16-2 16 U/L 15-37 complet SerPl-c 013 ed Cnc 00:25 ALT 01-16-2 55 U/L 30-65 complet SerPl-c 013 ed Cnc 00:25 ALP 01-16-2 105 U/L 50-136 complet SerPl-c 013 ed Cnc 00:25 CBC with AUTO DIFF (01-16-2013 00:25) WBC # -13-2 9.2 4.8-10. complet Bld 013 K/MM3 8 ed Auto 00:25 RBC # -13-2 3.83 4.6-6.2 complet Bld 013 M/mm3 ed Auto 00:25 Hgb 13-2 12.0 14.1-18 complet Bld-mCn 013 g/dL .0 ed c 00:25 Hct Fr 01-16-2 36.4 % 42.0-52 complet Bld 013 .0 ed 00:25 MCV RBC 01-16-2 95.0 fl 82.2-97 complet 013 .8 ed 00:25 MCH RBC 13-2 31.3 pg 27-31.2 complet Qn 013 ed Auto 00:25 MEAN -13-2 32.9 31.8-35 complet CORPUSC 013 g/dl .4 ed ULAR 00:25 HGB CONC RDW RBC 01-16-2 14.4 % 11.5-17 complet Auto 013 .5 ed 00:25 Platele -13-2 269 142-424 complet t Bld 013 K/mm3 ed Ql 00:25 Manual MEAN 13-2 7.4 fl 7.4-10. complet PLATELE 013 4 ed T 00:25 VOLUME Granulo -13-2 68.2 % 37.0-80 complet cytes 013 .0 ed Fr Bld 00:25 Auto LYMPH % -13-2 23.6 % 10-50 complet 013 ed 00:25 Monocyt 06-13-2 4.6 % 1.7-9.3 complet es Fr 013 ed Bld 00:25 Auto Eosinop 06-13-2 3.1 % 0.1-12. 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 ASSOCIATE SMP CATH S S IND SNF/LAB BHALF KILN CAR UNLOADER URNLS DIP [address] STICK/TAB ASSOCIATE ASSOCIATE LET S S REAGENT AUTO MICROSCOP Y LIPID 85218 KAZ[facility]H KAZAK[facility] PANEL 7 HEALTH HEALTH ASSOCIATE ASSOCIATE S S ALBUMIN 73169 KAZAKH KAZAK[facility] URINE [address] [place] [address] MICROALBU ASSOCIATE ASSOCIATE MIN S S QUANTIATI VE TRAVEL [address] NEC TRANSPORTATION SECURITY OFFICER ASSOCIATE SPEC; S S PRORAT ACTL MILE TRAVEL [address] NEC TRANSPORTATION SECURITY OFFICER ASSOCIATE SPEC; S S PRORAT ACTL MILE BLOOD 74604 KAZAKH KAZAKH COUNT 7 HEALTH HEALTH COMPLETE ASSOCIATE ASSOCIATE AUTO&AUTO S S DIFRNTL WBC J CARLOS V G0471 KAZAKH KAZAKH BLD [address] [place] [address] HEALTH SHEET 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 INSTALLER APPRENTICE/URN ASSOCIATE ASSOCIATE [place] CATH S S IND SNF/LAB BHALF KILN CAR UNLOADER J CARLOS V G0471 [facility] [address] [place] [address] SHEET METAL DUCT INSTALLER APPRENTICE/URN ASSOCIATE ASSOCIATE [place]RE[place]LE CATH S S IND SNF/LAB BHALF KILN CAR UNLOADER BLOOD 64214 KAZAKH KAZAKH COUNT [address] [place] [address] HEMOGLOBI ASSOCIATE ASSOCIATE N S S BLOOD [address] HEMATOCRI ASSOCIATE ASSOCIATE T S S TRAVEL [address] NEC TRANSPORTATION SECURITY OFFICER ASSOCIATE SPEC; S S PRORAT ACTL MILE COLOREC G0328 LA[facility]A GALLO [facility]CR; [facility] FOB TST INC INC IMMUNO 1-3 SIMULTANE OUS URNLS DIP 59878 [facility] STICK/TAB INC INC LET REAGENT AUTO MICROSCOP Y BLOOD 69204 KAZAKH KAZAKH [facility] COMPLETE ASSOCIATE ASSOCIATE AUTO&AUTO S S DIFRNTL WBC O2 CONC 1 E1390 [facility] [place] [facility] 85%/>02 E E CONC AT PRS FLW RATE J CARLOS V G0471 [place] [address] HEALTH HEALTH SHEET METAL DUCT INSTALLER APPRENTICE/URN ASSOCIATE ASSOCIATE MIRE[place] CATH S S IND SNF/LAB BHALF KILN CAR UNLOADER PRTBLE E0434 MARLYN CLINE LQD O2 7 HEALTHCAR HEALTHCAR SYS RENT; E E RESRVOR HUMIDFR FLWMTR TRAVEL [address] NEC TRANSPORTATION SECURITY OFFICER ASSOCIATE SPEC; S S PRORAT ACTL MILE TRAVEL [address] NEC TRANSPORTATION SECURITY OFFICER ASSOCIATE SPEC; S S PRORAT ACTL MILE J CARLOS V G0471 [address] SHEET METAL DUCT INSTALLER APPRENTICE/URN ASSOCIATE ASSOCIATE SMFrancisco CATH S S IND SNF/LAB BHALF KILN CAR UNLOADER CT THORAX 80631 LAURA SANCHEZ W/O 7 [facility] CONTRAST INC INC MATERIAL CT SOFT 30092 LAURA SANCHEZ TISSUE 7 [facility] NECK W/O INC INC CONTRAST MATERIAL BLOOD [address] COMPLETE ASSOCIATE ASSOCIATE AUTO&AUTO S S DIFRNTL WBC HEMOGLOBI [address]OSYLA ASSOCI[address] ASSOCI[place] [address] [facility] [address] [place] [address] STIMULATI ASSOCIATE ASSOCIATE NG S S HORMONE TSH J CARLOS V G04[address] SHEET METAL DUCT INSTALLER APPRENTICE/URN ASSOCIATE ASSOCIATE MIRE[place] CATH S S IND SNF/LAB BHALF KILN CAR UNLOADER TRAVEL [address] NEC TRANSPORTATION SECURITY OFFICER ASSOCIATE SPEC; S S PRORAT ACTL MILE URNLS DIP 29387 LAURA LEAL [address] [place] [address] LET RGNT P NON-AUTO W/O MICRSCP O2 CONC 1 E1390 [place] [address] HEALTHCAR HEALTHCAR 85%/>02 E E CONC AT [facility] FLW RATE O2 CONC 1 E1390 [facility] [place] [address] HEALTHCAR HEALTHCAR 85%/>02 E E CONC AT [facility] FLW RATE DEBRIDEME [address] SPECIAL VICTORIANO [place] NT NAIL 7 CARE ANY PODIATRY METHOD OF YAMIL 6/> NONEMERGE A0130 FEDERATED FEDERATED NCY 7 TRANS TRANSPORT TRANSPORT SERVBLUEG ATION: ATION SER TOSHA KAVITHA Dobson VAN J CARLOS V G0471 [address] SHEET 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 INSTALLER APPRENTICE/URN ASSOCIATE ASSOCIATE SMP CATH S S IND SNF/LAB BHALF KILN CAR UNLOADER LIPID 75719 KAZAKH KAZAKH PANEL 7 HEALTH HEALTH ASSOCIATE ASSOCIATE S S TRAVEL [address] NEC TRANSPORTATION SECURITY OFFICER ASSOCIATE SPEC; S S PRORAT ACTL MILE RADIOLOGI 03788 [facility] EXAMINATI ON KNEE 1/2 VIEWS TRANS R0070 [facility] PRTBL 7 [facility] LLC X-RAY EQP&PERS RICHMOND/NRS RICHMOND-TRIP 1 PT RADIOLOGI 83122 [facility] EXAMINATI ON FEMUR MINIMUM 2 VIEWS SET-UP Q0092 [facility] X-RAY EQUIPMENT RADIOLOGI 04619 [facility] EXAMINATI ON TIBIA & FIBULA 2 VIEWS COMPREHEN 24067 KAZAKH KAZAKH SIVE 7 HEALTH HEALTH METABOLIC ASSOCIATE ASSOCIATE PANEL S S J CARLOS V G0471 [facility] [address] [place] [address] HEALTH SHEET METAL DUCT INSTALLER APPRENTICE/URN ASSOCIATE ASSOCIATE Francisco CATH S S IND SNF/LAB BHALF KILN CAR UNLOADER URNLS DIP 91389 LAURA SANCHEZ [facility] STICK/TAB INC INC LET REAGENT AUTO MICROSCOP Y BLOOD 39726 KAZAKH [facility] 7 HEALTH HEALTH COMPLETE ASSOCIATE ASSOCIATE AUTO&AUTO S S DIFRNTL WBC TRAVEL [address] NEC TRANSPORTATION SECURITY OFFICER ASSOCIATE SPEC; S S PRORAT ACTL MILE TRANS R0070 [facility] X-RAY EQP&PERS RICHMOND/NRS RICHMOND-TRIP 1 PT RADIOLOGI 17812 [facility] EXAMINATI ON CHEST SINGLE VIEW FRONTAL SET-UP Q0092 [facility] X-RAY EQUIPMENT RADEX 48296 LAURA SANCHEZ WRIST 7 [facility] COMPLETE INC INC MINIMUM 3 VIEWS O2 CONC 1 E1390 [facility] HE[facility] 85%/>02 E E CONC AT PRSC FLW RATE TRANS R0070 [facility] PRTBL 7 [facility] X-RAY EQP&PERS RICHMOND/NRS RICHMOND-TRIP 1 PT RADEX 66300 [facility] FOREARM 2 7 [facility] VIEWS SET-UP Q0092 [facility] PORTABLE 7 [facility] X-RAY EQUIPMENT RADEX 48292 [facility] WRIST 7 [facility] COMPLETE MINIMUM 3 VIEWS NONEMERGE A0130 FEDERATED FEDERATED NCY 7 TRANS TRANSPORT TRANSPORT SERVBLUEG ATION: ATION SER TOSHA RAMIERZ NONEMERGE A0130 FEDERATED FEDERATED NCY 7 TRANS TRANSPORT TRANSPORT SERVBLUEG ATION: ATION SER TOSHA RAMIREZ NATRIURET 85728 KAZAKH KAZAKH 7 HEALTH HEALTH PEPTIDE ASSOCIATE ASSOCIATE S S J CARLOS V G0471 [facility] SHEET METAL DUCT INSTALLER APPRENTICE/URN ASSOCIATE ASSOCIATE MIRE[place]LE CATH S S IND SNF/LAB BHALF KILN CAR UNLOADER TRAVEL 1 P9603 [place] [address] HEALTH HEALTH NEC TRANSPORTATION SECURITY OFFICER ASSOCIATE SPEC; S S PRORAT ACTL MILE ECG 06680 [facility] ROUTINE 7 PHYSICIAN ECG S GROUP W/LEAST 12 LDS I&R ONLY ECG 74194 LAURA SANCHEZ ROUTINE 7 [facility] ECG INC INC W/LEAST 12 LDS TRCG ONLY W/O I&R NONEMERGE A0130 FEDERATED FEDERATED NCY 7 TRANS TRANSPORT TRANSPORT SERVBLUEG ATION: ATION SER TOSHA RAMIREZ CULTURE 61906 KAZ[facility]H KAZAKH BACTERIAL HEALTH HEALTH ASSOCIATE ASSOCIATE QUANTTATI S S VE COLONY COUNT URINE URNLS DIP [address] HEALTH STICK/TAB ASSOCIATE ASSOCIATE LET S S REAGENT AUTO MICROSCOP Y NONEMERGE A0130 FEDERATED FEDERATED NCY 7 TRANS TRANSPORT TRANSPORT SERVBLUEG ATION: ATION SER TOSHA RAMIREZ O2 CONC 1 E1390 [facility] HEALTHCAR HEALTHCAR 85%/>02 E E CONC AT [facility] FLW RATE NONEMERGE A0130 FEDERATED FEDERATED NCY 7 TRANS TRANSPORT TRANSPORT SERVBLUEG ATION: ATION SER TOSHA RAMIREZ GAS 05944 LAURA SANCHEZ DILUT/WAS 7 [facility] HOUT LUNG INC INC VOL W/WO DISTRIB V[place] [address] LAURA TRIPPON DIFFUSING 7 [facility] CAPACITY INC INC BRNCDILAT 03845 LAURA SANCHEZ RSPSE 7 [facility] SPMTRY INC INC PRE&POST- BRNCDILAT ADMN PRESSURIZ 16441 LAURA SANCHEZ ED/NONPRE 7 [facility] SSURIZED INC INC INHALATIO N TREATMENT NONEMERGE A0130 FEDERATED FEDERATED NCY 7 TRANS TRANSPORT TRANSPORT SERVBLUEG ATION: ATION SER TOSHA RAMIREZ URNLS DIP 55893 LAURA LEAL 7 [facility] LET RGNT P NON-AUTO W/O MICRSCP CULTURE 26984 LAURA TRIPPON BACTERIAL 7 [facility] INC INC QUANTTATI VE COLONY COUNT URINE CULTURE 22374 LAURA TRIPPON BCT 7 [facility] ISOL&PRSM INC INC PTV ID ISOLATE EA URINE SUSCEPTIB 53084 LAURA SANCHEZ LTY STDY 7 [facility] ANTIMICRB INC INC IAL MICRO/AGA R DILUTJ O2 CONC 1 E1390 [facility]ALTH[facility] HEALTHCAR 85%/>02 E E CONC AT [facility] FLW RATE NONEMERGE A0130 FEDERATED FEDERATED NCY 7 TRANS TRANSPORT TRANSPORT SERVBLUEG ATION: ATION SER TOSHA Dobson VAN RADEX 52251 [place] [facility] 7 MEDICAL COMPLETE IMAGING MINIMUM 2 ASS VIEWS DIAB ONLY A5500 [facility] FIT CSTM 7 MEDICAL MEDICAL PREP&SPL SUPPLY SUPPLY SHOE MX LLC LLC DNSITY INSRT FOR DIAB A5512 [place] [place] ONLY MX 7 MEDICAL MEDICAL DNSITY SUPPLY SUPPLY INSRT DIR LLC LLC FORMD PRFAB EA URNLS DIP 31961 LAURA SANCHEZ 7 [facility] STICK/TAB INC INC LET REAGENT AUTO MICROSCOP Y DEBRIDEME 55450 SPECIAL VICTORIANO JR. NT NAIL 7 CARE ANY PODIATRY METHOD OF YAMIL 6/> NONEMERGE A0130 FEDERATED FEDERATED NCY 7 TRANS TRANSPORT TRANSPORT SERVBLUEG ATION: ATION SER TOSHA WHEELHOMAI R VAN SET-UP Q0092 [facility] X-RAY EQUIPMENT RADEX 53793 [facility] SHOULDER 7 LLC LLC COMPLETE MINIMUM 2 VIEWS TRANS R0070 [facility] PRTBL 7 [facility] LLC X-RAY EQP&PERS RICHMOND/NRS RICHMOND-TRIP 1 PT TRANS R0070 [facility] PRTBL [facility] X-RAY EQP&PERS RICHMOND/NRS RICHMOND-TRIP 1 PT RADIOLOGI 67038 [facility] EXAMINATI ON CHEST SINGLE VIEW FRONTAL SET-UP Q0092 [facility] X-RAY EQUIPMENT SET-UP Q0092 [facility] X-RAY EQUIPMENT RADIOLOGI 93075 [facility] C [facility] EXAMINATI ON CHEST SINGLE VIEW FRONTAL TRANS R0075 [facility] PRTBL 7 LLC LLC XRAY EQP&PERS RICHMOND/NRS RICHMOND-TRIP> 1 PT O2 CONC 1 E1390 [facility]N FRAZIER [facility] HEALTHCAR HEALTHCAR 85%/>02 E E CONC AT [facility] FLW RATE BASIC 74357 KAZAKH KAZAKH METABOLIC 7 HEALTH HEALTH PANEL ASSOCIATE ASSOCIATE CALCIUM S S TOTAL BLOOD 88642 KAZAKH KAZAKH COUNT 7 HEALTH HEALTH COMPLETE ASSOCIATE ASSOCIATE AUTO&AUTO S S DIFRNTL WBC J CARLOS V G0471 KAZAKH KAZAKH BLD 7 HEALTH HEALTH SHEET METAL 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 INSTALLER APPRENTICE/URN ASSOCIATE ASSOCIATE SMP CATH S S IND SNF/LAB BHALF KILN CAR UNLOADER TRAVEL 1 P9603 KAZAKH KAZAKH [facility] 7 HEALTH HEALTH NEC TRANSPORTATION SECURITY OFFICER ASSOCIATE SPEC; S S PRORAT ACTL MILE ECG 58828 [facility] ROUTINE 7 PHYSICIAN ECG S GROUP W/LEAST 12 LDS I&R ONLY ECG 81210 LAURA SANCHEZ ROUTINE 7 [facility] ECG INC INC W/LEAST 12 LDS TRCG ONLY W/O I&R NONEMERGE A0130 FEDERATED FEDERATED NCY 7 TRANS TRANSPORT TRANSPORT SERVBLUEG ATION: ATION SER TOSHA Dobson VAN O2 CONC 1 E1390 [facility] HEALTH[facility] 85%/>02 E E CONC AT [facility] FLW RATE GROUND A0425 [facility] MILEAGE 7 AMBULANCE AMBULANCE PER SERVICE SERVICE STATUTE MILE AMBULANCE A0428 [facility] SERVICE 7 AMBULANCE AMBULANCE BLS SERVICE SERVICE NONEMERGE NC TRANSPORT GROUND A0425 [facility] MILEAGE 7 AMBULANCE AMBULANCE PER SERVICE SERVICE STATUTE MILE ECG 61837 KEVIN PATRICK ROUTINE 7 PHYSICIAN ECG S, PLLC W/LEAST 12 LDS I&R ONLY AMB A0427 [facility] 7 AMBULANCE AMBULANCE ALS SERVICE SERVICE EMERGENCY TRANSPORT LEVEL 1 RADIOLOGI 11482 [facility] 7 MEDICAL EXAMINATI IMAGING ON CHEST ASS SINGLE VIEW FRONTAL NONEMERGE A0130 FEDERATED FEDERATED NCY 7 TRANS TRANSPORT TRANSPORT SERVBLUEG ATION: ATION SER TOSHA RAMIREZ VISUAL 42067 [facility] MEDICAL UNI/BI SERV W/INTERP FOUNDATIO EXTENDED N EXAM HOSPITAL G0463 [facility] OUT[facility] 7 HEALTHCAR HEALTHCAR T CLIN E E VISIT [facility] ASSESS & MGMT PT ECG 50817 [facility] ROUTINE 7 HEALTHCAR HEALTHCAR ECG E E W/LEAST [facility] 12 LDS TRCG ONLY W/O I&R DEBRIDEME 56202 SPECIAL SKRIP JR. NT NAIL 7 CARE ANY PODIATRY METHOD OF YAMIL 6/> O2 CONC 1 E1390 [facility] HEALTHCAR HEALTHCAR 85%/>02 E E CONC AT [facility] FLW RATE O2 CONC 1 E1390 MARTINAbhijit DODGEROSALIAAbhijit [facility] 6 HEALTHCAR HEALTHCAR 85%/>02 E E CONC AT PRSC FLW RATE POLYSOM 89033 LAURA TRIPPON 6/>YRS 6 [facility] SLEEP INC INC W/CPAP 4/> ADDL KATARINA ATTND NONEMERG A0120 FEDERATED FEDERATED TRNSPRT: 6 MINI-BUS TRANSPORT TRANSPORT MTN ATION SER ATION SER AREA/OTH SYS O2 CONC 1 E1390 MARTINAbhijit MARTINAbhijit [facility] 6 HEALTHCAR HEALTHCAR 85%/>02 E E CONC AT PRSC FLW RATE BASIC 56822 [facility] K[facility] METABOLIC 6 HEALTH HEALTH PANEL ASSOCIATE ASSOCIATE CALCIUM S S TOTAL J CARLOS V G0471 [facility] K[facility] BLD 6 HEALTH HEALTH SHEET METAL DUCT INSTALLER APPRENTICE/URN ASSOCIATE ASSOCIATE SMP CATH S S IND SNF/LAB BHALF KILN CAR UNLOADER TRAVEL 1 [id number] KAZAKH KAZAKH [facility] MED 6 HEALTH HEALTH NEC TRANSPORTATION SECURITY OFFICER ASSOCIATE SPEC; S S PRORAT ACTL MILE DEBRIDEME 90555 SPECIAL SKRIFrancisco JR. NT NAIL 6 CARE SELVIN ANY PODIATRY METHOD OF YAMIL 6/> O2 CONC 1 E1390 MARLYN CLINE [facility] 6 HEALTHCAR HEALTHCAR 85%/>02 E E CONC AT PRSC FLW RATE ECG 04926 [facility] MEREDITH ROUTINE 6 PHYSICIAN MAT ECG S GROUP W/LEAST 12 LDS I&R ONLY ECG 21792 LAURA SANCHEZ ROUTINE 6 [facility] ECG INC INC W/LEAST 12 LDS TRCG ONLY W/O I&R ECG 47067 LAURA ZARCO JR ROUTINE 6 [facility] W/LEAST P 12 LDS I&R ONLY RADIOLOGI 73138 [place] ALE[place] C EXAM 6 MEDICAL KIERAN CHEST 2 IMAGING VIEWS ASS FRONTAL&L ATERAL O2 CONC 1 E1390 MARLYN CLINE [facility] 6 HEALTHCAR HEALTHCAR 85%/>02 E E CONC AT PRSC FLW RATE RADEX 84934 [facility] ALL SPINE 6 MEDICAL CERVICAL IMAGING 2 OR 3 ASS VIEWS RADEX 35865 [facility] ALL SPINE 6 MEDICAL THORACIC IMAGING 2 VIEWS ASS RADEX 70802 NICKI ORDONEZ ALL SPINE 6 MEDICAL LUMBOSACR IMAGING AL 2/3 ASS VIEWS ECG 86979 [facility] ROUTINE 6 PHYSICIAN MAT ECG S GROUP W/LEAST 12 LDS I&R ONLY NONEMERG A0120 FEDERATED FEDERATED TRNSPRT: 6 MINI-BUS TRANSPORT TRANSPORT MTN ATION SER ATION SER AREA/OTH SYS NONEMERG A0120 FEDERATED FEDERATED TRNSPRT: 6 MINI-BUS TRANSPORT TRANSPORT MTN ATION SER ATION SER AREA/OT SYS ECG 13575 [facility] ROUTINE 6 PHYSICIAN MAT ECG S GROUP W/LEAST 12 LDS I&R ONLY ECG 60475 LAURA HOLCOMB ROUTINE 6 [facility] W/LEAST P 12 LDS I&R ONLY NONEMERG A0120 FEDERATED FEDERATED TRNSPRT: 6 MINI-BUS TRANSPORT TRANSPORT MTN ATION SER ATION SER AREA/OT SYS PC C9600 MEADOWVIE MEADOWVIE TRNSCTH 6 W W PLCMT RX [facility] MEDICAL MEDICAL STENTS; 1 CHRISTINE CA/BR PRQ 54899 [facility] TRLUML 6 PHYSICIAN MAT CORONARY S GROUP STENT W/ANGIO ONE ART/BRNCH ECG 20182 LAURA HOLCOMB ROUTINE 6 [facility] W/LEAST P 12 LDS I&R ONLY NONEMERG A0120 FEDERATED FEDERATED TRNSPRT: 6 MINI-BUS TRANSPORT TRANSPORT MTN ATION SER ATION SER AREA/OT SYS RADEX 05750 LAURA SANCHEZ WRIST 6 [facility] COMPLETE INC INC MINIMUM 3 VIEWS RADIOLOGI 25824 NICKI ORDONEZ ALL C 6 MEDICAL EXAMINATI IMAGING ON CHEST ASS SINGLE VIEW FRONTAL NONEMERG A0120 FEDERATED FEDERATED TRNSPRT: 6 MINI-BUS TRANSPORT TRANSPORT MTN ATION SER ATION SER AREA/OT SYS NONEMERG A0120 FEDERATED FEDERATED TRNSPRT: 6 MINI-BUS TRANSPORT TRANSPORT MTN ATION SER ATION SER AREA/OT SYS RADIOLOGI 57342 [place] ORDONEZ ALL C 6 MEDICAL EXAMINATI IMAGING ON CHEST ASS SINGLE VIEW FRONTAL NONEMERG A0120 FEDERATED FEDERATED TRNSPRT: 6 MINI-BUS TRANSPORT TRANSPORT MTN [facility] NONEMERG A0120 FEDERATED FEDERATED TRNSPRT: 6 MINI-BUS TRANSPORT TRANSPORT MTN [facility] NONEMERG A0120 FEDERATED FEDERATED TRNSPRT: 6 MINI-BUS TRANSPORT TRANSPORT [facility] NONEMERG A0120 FEDERATED FEDERATED TRNSPRT: 6 MINI-BUS TRANSPORT TRANSPORT [facility] [address] [facility] MEREDITH DISCHARGE 6 PHYSICIAN MAT DAY S GROUP MANAGEMEN T 30 MIN/< PC C9600 MEAWFRANCES MEAWFRANCES TRNSCTH 6 W W PLCMT RX REGIONAL REGIONAL ELUT IC MEDICAL MEDICAL STENTS; 1 CHRISTINE CA/BR PRQ [address] [facility] TRLUML 6 PHYSICIAN MAT CORONARY S GROUP STENT W/ANGIO ONE ART/BRNCH NONEMERG A0120 FEDERATED FEDERATED TRNSPRT: 6 MINI-BUS TRANSPORT TRANSPORT [facility] NONEMERG A0120 FEDERATED FEDERATED TRNSPRT: 6 MINI-BUS TRANSPORT TRANSPORT [facility] ECHO 75805 LAURA SANCHEZ TTHRC R-T 6 [facility] 2D INC INC W/WOM-MOD E COMPL SPEC&COLR D NONEMERG A0120 FEDERATED FEDERATED TRNSPRT: 6 MINI-BUS TRANSPORT TRANSPORT [facility] ECG 70072 LAURA HOLCOMB ROUTINE 6 [facility] W/LEAST P 12 LDS I&[place] [address] [place] ALEISHA HEAD/BRAI 6 MEDICAL KIERAN N W/O IMAGING CONTRAST ASS MATERIAL RADEX 07459 [place] [facility] SPINE 6 MEDICAL GILMA THORACIC IMAGING 2 VIEWS ASS RADEX 13778 [place] [facility] SPINE 6 MEDICAL GILMA LUMBOSACR IMAGING AL 2/[address] [place] [address] [place] [facility] CERVICAL 6 MEDICAL GILMA SPINE W/O IMAGING CONTRAST ASS MATERIAL RADIOLOGI 95529 [place] ALEISHA C 6 MEDICAL KIERAN EXAMINATI IMAGING ON CHEST ASS SINGLE VIEW FRONTAL NONEMERG A0120 FEDERATED FEDERATED TRNSPRT: 6 MINI-BUS TRANSPORT TRANSPORT MTN [facility] NONEMERG A0120 FEDERATED FEDERATED TRNSPRT: 6 MINI-BUS TRANSPORT TRANSPORT MTN [facility] RADIOLOGI 42698 [place] ORDONEZ ALL C 6 MEDICAL EXAMINATI IMAGING ON CHEST ASS SINGLE VIEW FRONTAL NONEMERG A0120 FEDERATED FEDERATED TRNSPRT: 6 MINI-BUS TRANSPORT TRANSPORT MTN [facility] ECG 75930 CARDIOVAS MEREDITH ROUTINE 6 CULAR MAT ECG CONSULTAN W/LEAST TS O 12 LDS I&R ONLY RADIOLOGI 98208 [place] ORDONEZ ALL C 6 MEDICAL EXAMINATI IMAGING ON CHEST ASS SINGLE VIEW FRONTAL NONEMERG A0120 FEDERATED FEDERATED TRNSPRT: 6 MINI-BUS TRANSPORT [facility] NONEMERG A0120 FEDERATED FEDERATED TRNSPRT: 5 MINI-BUS TRANSPORT TRANSPORT [facility] [address] [facility] 5 JEANIE JEANIE DAY MANAGEMEN T 30 MIN/< SBSQ 02807 [facility] 5 JEANIE JEANIE CARE/DAY 25 MINUTES SBSQ 37083 [facility] 5 JEANIE JEANIE CARE/DAY 25 MINUTES SBSQ 28577 [facility] 5 JEANIE JEANIE CARE/DAY 25 MINUTES SBSQ 75249 [facility] 5 JEANIE JEANIE CARE/DAY 25 MINUTES SBSQ 10988 [facility] 5 JEANIE JEANIE CARE/DAY 25 MINUTES SBSQ 61534 [facility] 5 JEANIE JEANIE CARE/DAY [address] THORAX 53435 [facility] 5 MEDICAL GILMA W/CONTRAS IMAGING T ASS MATERIAL RADIOLOGI 77462 [facility] 5 MEDICAL GILMA EXAMINATI IMAGING ON CHEST ASS SINGLE VIEW FRONTAL INITIAL 38326 [facility] 5 JEANIE JEANIE CARE/DAY 50 MINUTES RADEX 33179 [facility] ALL FINGR 5 MEDICAL MINIMUM 2 IMAGING VIEWS ASS URNLS DIP 94287 LAURA SANCHEZ 5 [facility] STICK/TAB INC INC LET REAGENT AUTO MICROSCOP Y NONEMERG A0120 FEDERATED FEDERATED TRNSPRT: 5 MINI-BUS TRANSPORT TRANSPORT MTN ATION SER ATION SER AREA/OTH SYS NONEMERG A0120 FEDERATED FEDERATED TRNSPRT: 5 MINI-BUS TRANSPORT TRANSPORT MTN ATION SER ATION SER AREA/OTH SYS ECG 15100 CARDIOVAS MEREDITH ROUTINE 5 CULAR MAT ECG CONSULTAN W/LEAST TS O 12 LDS I&R ONLY ECG 38873 LAURA SANCHEZ ROUTINE 5 [facility] ECG INC INC W/LEAST 12 LDS TRCG ONLY W/O I&R NONEMERG A0120 FEDERATED FEDERATED TRNSPRT: 5 MINI-BUS TRANSPORT TRANSPORT MTN ATION SER ATION SER AREA/OTH SYS NONEMERG A0120 FEDERATED FEDERATED TRNSPRT: 5 MINI-BUS TRANSPORT TRANSPORT MTN ATION SER ATION SER AREA/OTH SYS CONTINUOU E0601 [facility] S 5 POSITIVE AIRWAY PRESSURE DEVICE R & L HRT 18038 CARDIOVAS MEREDITH CATH 5 CULAR MAT WINJX HRT CONSULTAN ART& L TS O VENTR IMG NONEMERG A0120 FEDERATED FEDERATED TRNSPRT: 5 MINI-BUS TRANSPORT TRANSPORT MTN ATION SER ATION SER AREA/[place] [address] [place] ALEISHA ABDOMEN & 5 MEDICAL KIERAN PELVIS IMAGING W/O ASS CONTRAST MATERIAL RADIOLOGI 64860 [place] ALE[place]HA C 5 MEDICAL KEIRAN EXAMINATI IMAGING ON CHEST ASS SINGLE VIEW FRONTAL RADIOLOGI 19807 [place] ALEISHA C 5 MEDICAL KIERAN EXAMINATI IMAGING [place] [address] [place] ALEISHA THORACIC 5 MEDICAL KIERAN SPINE W/[place] [address] [place] ALEISHA CERVICAL 5 MEDICAL KIERAN SPINE W/O IMAGING CONTRAST ASS MATERIAL RADIOLOGI 37878 [place] ALEISHA C 5 MEDICAL KIERAN EXAMINATI IMAGING ON PELVIS ASS 1/2 VIEWS NONEMERG A0120 FEDERATED FEDERATED TRNSPRT: 5 MINI-BUS TRANSPORT TRANSPORT MTN ATION SER ATION SER AREA/OTH SYS RADIOLOGI 18874 [place] BEINE C EXAM 5 MEDICAL GILMA CHEST 2 IMAGING VIEWS ASS FRONTAL&L ATERAL NONEMERG A0120 FEDERATED FEDERATED TRNSPRT: 5 MINI-BUS TRANSPORT TRANSPORT MTN ATION SER ATION SER AREA/OTH SYS ECHO 86196 LAURA SANCHEZ TTHRC R-T 5 [facility] [address] [place] [address] W/WOM-MOD E COMPL SPEC&COLR D NONEMERG A0120 FEDERATED FEDERATED TRNSPRT: 5 MINI-BUS TRANSPORT TRANSPORT MTN ATION SER ATION SER AREA/OTH SYS CONTINUOU E0601 [facility] S [address] POS[address] AIRW[address] PRESSURE DEVICE WALKER E0143 [facility] FOLDING 5 WHEELED ADJUSTABL E/FIXED HEIGHT NONEMERG A0120 FEDERATED FEDERATED TRNSPRT: 5 MINI-BUS TRANSPORT TRANSPORT MTN ATION SER ATION SER AREA/OTH SYS RADEX 84115 [facility] UNI 5 MEDICAL KIERAN W/POSTERO [...] MTN ATION SER TOSHA AREA/[place] [address] [place] [facility] ABDOMEN & 4 MEDICAL GILMA PELVIS IMAGING W/CONTRAS ASS T MATERIAL NONEMERG A0120 FEDERATED FEDERATED TRNSPRT: 4 TRANS MINI-BUS TRANSPORT SERVBLUEG MTN ATION SER TOSHA AREA/OTH SYS NONEMERG A0120 FEDERATED FEDERATED TRNSPRT: 4 TRANS MINI-BUS TRANSPORT SERVBLUEG MTN ATION SER TOSHA AREA/OTH SYS XTRNL 68211 [place] ONDINA OCULAR 4 MEDICAL SHA PHOTOG SERV W/I&R FOUNDATIO DOCMT N MEDICAL PROGRE O2 CONC 1 E1390 [facility] [place] PORT 4 HOME HOME 85%/>02 MEDICAL MEDICAL CONC AT EQUIPME EQUIPME PRSC FLW RATE NONEMERG A0120 FEDERATED FEDERATED TRNSPRT: 4 TRANS MINI-BUS TRANSPORT SERVBLUEG MTN ATION SER TOSHA AREA/OTH SYS SPMTRY 21267 LAURA SANCHEZ W/VC 4 [facility] EXPIRATOR INC INC Y MARYLOU W/WO MXML VOL VNTJ O2 CONC 1 E1390 ARON KNIGHTRELL [place] 4 HOME HOME 85%/>02 MEDICAL MEDICAL CONC AT EQUIPME EQUIPME PRSC FLW RATE NONEMERG A0120 FEDERATED FEDERATED TRNSPRT: 4 TRANS MINI-BUS TRANSPORT SERVBLUEG MTN ATION SER TOSHA AREA/OTH SYS O2 CONC 1 E1390 [facility] PORT 4 HOME HOME 85%/>02 MEDICAL MEDICAL CONC AT EQUIPME EQUIPME PRSC FLW RATE NONEMERG A0120 FEDERATED FEDERATED TRNSPRT: 4 TRANS MINI-BUS TRANSPORT SERVBLUEG MTN ATION SER TOSHA AREA/OTH SYS NONEMERG A0120 FEDERATED FEDERATED TRNSPRT: 4 TRANS MINI-BUS TRANSPORT SERVBLUEG MTN ATION SER TOSHA AREA/OTH SYS O2 CONC 1 E1390 [facility] 4 HOME HOME 85%/>02 MEDICAL MEDICAL CONC AT EQUIPME EQUIPME PRSC FLW RATE SAVAGE 59961 LAURA MATHIS JR POST-VOID 4 [facility] RESIDUAL P URINE&/BL ADDER CAP NONEMERG A0120 FEDERATED FEDERATED TRNSPRT: 4 TRANS MINI-BUS TRANSPORT SERVBLUEG MTN ATION SER TOSHA AREA/OTH SYS NONEMERG A0120 FEDERATED FEDERATED TRNSPRT: 4 TRANS MINI-BUS TRANSPORT SERVBLUEG MTN ATION SER TOSHA AREA/OTH SYS NONEMERG A0120 FEDERATED FEDERATED TRNSPRT: 4 MINI-BUS TRANSPORT TRANSPORT MTN ATION SER ATION SER AREA/OTH SYS O2 CONC 1 E1390 [facility] 4 HOME HOME 85%/>02 MEDICAL MEDICAL CONC AT EQUIPME EQUIPME PRSC FLW RATE NONEMERG A0120 FEDERATED FEDERATED TRNSPRT: 4 MINI-BUS TRANSPORT TRANSPORT MTN ATION SER ATION SER AREA/OTH SYS NONEMERG A0120 FEDERATED FEDERATED TRNSPRT: 4 MINI-BUS TRANSPORT TRANSPORT MTN ATION SER ATION SER AREA/OTH SYS SAVAGE 60408 LAURA MATHIS JR POST-VOID 4 [facility] RESIDUAL P URINE&/BL ADDER CAP O2 CONC 1 E1390 ARON ARON [facility] PORT 4 HOME HOME 85%/>02 MEDICAL MEDICAL CONC AT EQUIPME EQUIPME PRS FLW RATE NONEMERG A0120 FEDERATED FEDERATED TRNSPRT: 4 MINI-BUS TRANSPORT TRANSPORT MTN ATION SER ATION SER AREA/OTH SYS NONEMERG A0120 FEDERATED FEDERATED TRNSPRT: 4 MINI-BUS TRANSPORT TRANSPORT MTN ATION SER ATION SER AREA/OTH SYS SAVAGE 90612 LAURA MATHIS JR POST-VOID 4 [facility] RESIDUAL P URINE&/BL ADDER CAP O2 CONC 1 E1390 [facility] 4 HOME HOME 85%/>02 MEDICAL MEDICAL CONC AT EQUIPME EQUIPME PRS FLW RATE NONEMERG A0120 FEDERATED FEDERATED TRNSPRT: 4 MINI-BUS TRANSPORT TRANSPORT MTN ATION SER ATION SER AREA/OTH SYS NONEMERG A0120 FEDERATED FEDERATED TRNSPRT: 4 MINI-BUS TRANSPORT TRANSPORT MTN ATION SER ATION SER AREA/OTH SYS 3D 73754 [place] A[place]HA RENDERING 4 MEDICAL KIERAN IMAGING W/INTERP& [place] [address] LAURA SANCHEZ MAXILLOFA 4 [facility] CIAL W/O INC INC CONTRAST MATERIAL NONEMERG A0120 FEDERATED FEDERATED TRNSPRT: 4 MINI-BUS TRANSPORT TRANSPORT MTN ATION SER ATION SER AREA/OTH SYS O2 CONC 1 E1390 [facility] 4 HOME HOME 85%/>02 MEDICAL MEDICAL CONC AT EQUIPME EQUIPME [facility] FLW RATE NONEMERG A0120 FEDERATED FEDERATED TRNSPRT: 4 MINI-BUS TRANSPORT TRANSPORT MTN ATION SER ATION SER AREA/OTH SYS NONEMERG A0120 FEDERATED FEDERATED TRNSPRT: 4 MINI-BUS TRANSPORT TRANSPORT MTN ATION SER ATION SER AREA/OTH SYS RADIOLOGI 45959 LAURA SANCHEZ C EXAM 4 [facility] KNEE INC INC COMPLETE 4/MORE VIEWS RADEX 44712 LAURA SANCHEZ WRIST 4 [facility] COMPLETE INC INC MINIMUM 3 VIEWS O2 CONC 1 E1390 [facility] PORT 3 HOME HOME 85%/>02 MEDICAL MEDICAL CONC AT EQUIPME [facility] FLW RATE NONEMERG A0120 FEDERATED FEDERATED TRNSPRT: 3 MINI-BUS TRANSPORT TRANSPORT MTN ATION SER ATION SER AREA/OTH SYS NONEMERG A0120 FEDERATED FEDERATED TRNSPRT: 3 MINI-BUS TRANSPORT TRANSPORT MTN ATION SER ATION SER AREA/OTH SYS NONEMERG A0120 FEDERATED FEDERATED TRNSPRT: 3 MINI-BUS TRANSPORT TRANSPORT MTN ATION SER ATION SER AREA/OTH SYS O2 CONC 1 E1390 [facility] 3 HOME HOME 85%/>02 [facility] [place] [place] [address] LAURA SANCHEZ INFUSION 3 [facility] THERAPY INC INC PROPHYLAX IS/DX EA HOUR NEUROPLAS 46401 LAURA SANCHEZ TY 3 [facility] &/TRANSPO INC [place] [address] LAURA SANCHEZ INFUSION 3 [facility] THERAPY/P INC INC ROPHYLAXI S /DX 1ST TO 1 HR THERAPEUT 67966 LAURA SANCHEZ IC 3 [facility] INJECTION INC INC IV PUSH EACH NEW DRUG PRESSURIZ 77339 LAURA SANCHEZ ED/NONPRE 3 [facility] SSURIZED INC INC INHALATIO N TREATMENT NONEMERG A0120 FEDERATED FEDERATED TRNSPRT: 3 MINI-BUS TRANSPORT TRANSPORT MTN ATION SER ATION SER AREA/OTH SYS NONEMERG A0120 FEDERATED FEDERATED TRNSPRT: 3 MINI-BUS TRANSPORT TRANSPORT MTN ATION SER ATION SER AREA/OTH SYS NONEMERG A0120 FEDERATED FEDERATED TRNSPRT: 3 MINI-BUS TRANSPORT TRANSPORT MTN ATION SER ATION SER AREA/OTH SYS O2 CONC 1 E1390 [facility] PORT 3 HOME HOME 85%/>02 MEDICAL MEDICAL CONC AT EQUIPME EQUIPME [place] [address] LAURA SANCHEZ INFUSION 3 [facility] THERAPY INC INC PROPHYLAX IS/DX EA HOUR NEUROPLAS 81253 LAURA SANCHEZ TY 3 [facility] &/TRANSPO INC INC S MEDIAN NRV CARPAL TUNNE THERAPEUT 14954 LAURA SANCHEZ IC 3 [facility] INJECTION [place] [address] LAURA SANCHEZ INFUSION 3 [facility] THERAPY/P INC INC ROPHYLAXI S /DX 1ST TO 1 HR ECG 58007 LAURA SANCHEZ ROUTINE 3 [facility] ECG INC INC W/LEAST 12 LDS TRCG ONLY W/O I&R ECG 86900 LAURA AICHA ROUTINE 3 [facility] W/LEAST P 12 LDS I&R ONLY BASIC 44952 LAURA SANCHEZ METABOLIC 3 [facility] PANEL INC INC CALCIUM TOTAL BLOOD 00020 LAURA SANCHEZ COUNT 3 [facility] COMPLETE INC INC AUTO&AUTO DIFRNTL WBC COLLECTIO 27194 LAURA SANCHEZ N VENOUS 3 [facility] BLOOD INC INC VENIPUNCT URE RADIOLOGI 28196 [place] ALE[place]HA C EXAM 3 MEDICAL KIERAN CHEST 2 IMAGING VIEWS ASS FRONTAL&L ATERAL NONEMERG A0120 LKLP CAC LKLP CAC TRNSPRT: 3 INC INC MINI-BUS REGION 11 REGION 11 PAN AREA/OTH SYS DETERMINA 27180 ELENI MERCADO 3 JAM JAM REFRACTIV E STATE NONEMERG A0120 LKLP CAC LKLP CAC TRNSPRT: 3 INC INC [facility]I-[facility] REGION 11 REGION 11 MTN AREA/OTH SYS OPHTHALMO 06332 ELENI KNOWLES SCPY 3 JAM JAM EXTENDED RETINAL DRAWING I&R 1ST NONEMERG A0120 LKLP CAC LKLP CAC TRNSPRT: 3 INC INC MINI-BUS REGION 11 REGION 11 MTN AREA/OTH SYS O2 CONC 1 E1390 [facility] [place] 3 HOME HOME 85%/>02 MEDICAL MEDICAL CONC AT [facility] FLW RATE NERVE 28139 YAZDANISM VINH CONDUCTIO 3 [facility] 13/> [facility] NONEMERG A0120 LK CAC [facility] CAC TRNSPRT: 3 INC INC MINI-BUS REGION 11 REGION 11 MTN AREA/OTH SYS NEEDLE 87876 YAZDANISM VINH EMG EA 3 [facility] W/PARASPI [place] NL AREA COMPLETE TRIMMING 79241 BRAUDIS BRAUDIS NONDYSTRO 3 JAM JAM PHIC NAILS ANY NUMBER O2 CONC 1 E1390 [facility] [place] 3 HOME HOME 85%/>02 MEDICAL MEDICAL CONC [facility] 96482 LAURA SANCHEZ SPINAL 3 [facility] CANAL INC INC CERVICAL [place] [address] CHIPPS SUAD ARMANDO SURG 3 SUNITHA & PATHOLOGY MEERAILISILVIA GROSS&ARMANDO ROSCOPIC EXAM GLUC BLD 34494 LAURA SANCHEZ GLUC MNTR 3 [facility] DEV INC [place] [address] LAURA SANCHEZ INFUSION 3 [facility] THERAPY INC INC PROPHYLAX IS/DX EA HOUR EGD 48178 LAURA SANCHEZ TRANSORAL 3 [facility] BIOPSY INC INC SINGLE/MU LTIPLE NONEMERG A0120 LK CAC LK CAC TRNSPRT: 3 INC INC [facility] REGION 11 REGION 11 MTN AREA/OTH SYS SPCL STN 67296 CHIPPS SUAD ARMANDO 2 I&R 3 SUNITHA & EXCPT MAGDALENA MICROORG/ ENZYME/IM CYT EXCISION 75869 CROWN KIERRA THO NAIL 3 [facility] REMOVAL NONEMERG A[address] [facility] TRNSPRT: 3 [facility] MINI-BUS ACTION ACTION MTN AREA/OTH SYS O2 CONC 1 E1390 [facility]ON [facility] [place] 3 HOME HOME 85%/>02 MEDICAL MEDICAL CONC AT EQUIPME EQUIPME [facility] [place] [address] LAURA SANCHEZ TROPONIN 3 [facility] H[facility] QUANTITAT INC INC ANGY BLOOD 21818 LAURA SANCHEZ COUNT 3 [facility] COMPLETE INC INC AUTO&AUTO DIFRNTL WBC CREATINE 34357 LAURA LAURA KINASE MB 3 [facility] FRACTION INC INC ONLY RADIOLOGI 74073 LAURA LAURA C EXAM 3 [facility] H[facility] CHEST 2 INC INC VIEWS FRONTAL&L ATERAL COMPREHEN 66527 LAURA SANCHEZ SIVE 3 [facility] METABOLIC INC INC PANEL CREATINE 44328 LAURA LAURA KINASE 3 [facility] TOTAL INC INC GROUND A0425 [facility] AMBULANCE PER SERVICE SERVICE STATUTE MILE ECG 20772 LAURA ZARCO JR ROUTINE 3 [facility] W/LEAST P 12 LDS I&R ONLY ECG 88695 LAURA SANCHEZ ROUTINE 3 [facility] ECG INC INC W/LEAST 12 LDS TRCG ONLY W/O I&R AMB A0427 [facility] SERVICE 3 AMBULANCE AMBULANCE ALS SERVICE SERVICE EMERGENCY TRANSPORT LEVEL 1 NONCOVERE A9270 [facility] D ITEM OR 3 HOSPITAL HOSPITAL SERVICE O2 CONC 1 E1390 [facility] HOME HOME 85%/>02 MEDICAL MEDICAL CONC AT EQUIPME EQUIPME [facility] FLW RATE TRIMMING 84420 BRAUDIS BRAUDIS NONDYSTRO 3 JAM JAM PHIC NAILS ANY NUMBER DEBRIDEME 34888 BRAUDIS BRAUDIS NT NAIL 3 JAM JAM ANY METHOD 1-5 O2 CONC 1 E1390 [facility] PORT 3 HOME HOME 85%/>02 MEDICAL MEDICAL CONC AT EQUIPME EQUIPME [facility] FLW RATE PROSTATE G0103 COMBINED COMBINED CANCER 3 PHYSICIAN PHYSICIAN SCREENING S LA S LA ; PSA TEST URNLS DIP 90556 COMBINED COMBINED 3 PHYSICIAN PHYSICIAN STICK/TAB S LA S LA LET REAGENT AUTO MICROSCOP Y RADEX 35584 [employer] EXPRESS SHOULDER 3 MOBILE MOBILE COMPLETE DIAGNOSTI DIAGNOSTI MINIMUM 2 C SE C SE VIEWS RADEX 05174 [employer] EXPRESS HUMERUS 3 MOBILE MOBILE MINIMUM 2 DIAGNOSTI DIAGNOSTI VIEWS C SE C SE RADEX 19438 EXPRESS EXPRESS ELBOW 3 MOBILE MOBILE COMPLETE DIAGNOSTI DIAGNOSTI MINIMUM 3 C SE C SE VIEWS O2 CONC 1 E1390 [facility] [place] 3 HOME HOME 85%/>02 MEDICAL MEDICAL CONC AT EQUIPME EQUIPME PRSC FLW RATE O2 CONC 1 E1390 [facility] PORT 3 HOME HOME 85%/>02 MEDICAL MEDICAL CONC AT EQUIPME EQUIPME PRSC FLW RATE DEBRIDEME 14167 RAMÍREZ BUSHS NT NAIL 3 JAM JAM ANY METHOD 1-5 TRIMMING 12938 ELEAZARS MINDYUDIS NONDYSTRO 3 JAM JAM PHIC NAILS ANY NUMBER PARING/CU 99777 RAMÍREZ BUSHS TTING 3 JAM JAM BENIGN HYPERKERA TOTIC LESION >4 O2 CONC 1 E1390 [facility] PORT 3 HOME HOME 85%/>02 MEDICAL MEDICAL CONC AT EQUIPME EQUIPME PRSC FLW RATE NONEMERG A0120 LKLP LKLP TRNSPRT: 3 [facility] Nasseo-BUS ACTION ACTION MTN AREA/[place] [address] LAURA LAURA INFUSION 3 [facility] THERAPY/P INC INC ROPHYLAXI S /DX 1ST TO 1 HR COLONOSCO 88272 C ANTONETTE GEORGE PY FLX DX 3 DORIS HILLMAN W/PERRY [place] [address] LAURA LAURA INFUSION 3 [facility] THERAPY INC INC PROPHYLAX IS/DX EA HOUR O2 CONC 1 E1390 [facility] [place] 2 HOME HOME 85%/>02 MEDICAL MEDICAL CONC AT EQUIPME EQUIPME PRS FLW RATE O2 CONC 1 E1390 [facility] [place] 2 HOME HOME 85%/>02 MEDICAL MEDICAL CONC AT EQUIPME EQUIPME PRSC FLW RATE COMPREHEN 50445 COMBINED COMBINED SIVE 2 PHYSICIAN PHYSICIAN METABOLIC S LA S LA PANEL COLLECTIO 98688 COMBINED COMBINED N VENOUS 2 PHYSICIAN PHYSICIAN [place] [address] COMBINED COMBINED THYROID 2 PHYSICIAN PHYSICIAN STIMULATI S LA S LA NG HORMONE TSH PROSTATE G0103 COMBINED COMBINED CANCER 2 PHYSICIAN PHYSICIAN SCREENING S LA S LA ; PSA TEST LIPID 68820 COMBINED COMBINED PANEL 2 PHYSICIAN PHYSICIAN S LA S LA O2 CONC 1 E1390 ARON FRAZIER PORT 2 HOME HOME 85%/>02 MEDICAL MEDICAL CONC AT EQUIPME EQUIPME PRSC FLW RATE RADIOLOGI 49995 NICKI STILESUTCHER C 2 MEDICAL KIERAN EXAMINATI IMAGING ON CHEST ASS SINGLE VIEW FRONTAL ECG 78483 JERIHRMAN WEHRMAN ROUTINE 2 III MARCY III MARCY ECG W/LEAST 12 LDS I&R ONLY ECG 56684 LAURA SANCHEZ ROUTINE 2 [facility] ECG INC INC W/LEAST 12 LDS TRCG ONLY W/O I&R NONEMERG A0120 LKLP LKLP TRNSPRT: 2 [facility] [employer] MINI-BUS ACTION ACTION MTN AREA/OTH SYS SAVAGE 63121 DEL MATHIS JR POST-VOID 2 MARCY MARCY ING RESIDUAL URINE&/BL ADDER CAP URNLS DIP 28326 LAURA SANCHEZ 2 [facility] STICK/TAB INC INC [place] [address] LAURA SANCHEZ THYROID 2 [facility] STIMULATI INC INC NG HORMONE TSH INSJ TEMP 20765 LAURA SANCHEZ NDWELLG 2 [facility] BLADDER INC INC CATHETER SIMPLE BASIC 58646 LAURA SANCHEZ METABOLIC 2 [facility] PANEL INC INC CALCIUM TOTAL 3D 30895 NICKI STILESUTCHER RENDERING 2 MEDICAL KIERAN IMAGING W/INTERP& ASS POSTPROC DIFF WORK STATION BLOOD 62759 LAURA SANCHEZ COUNT 2 [facility] COMPLETE INC INC AUTO&[place] [address] NICKI STILESUTCHER ABDOMEN & 2 MEDICAL KIERAN PELVIS IMAGING W/[place] [address] LAURA SANCHEZ INFUSION 2 [facility] HYDRATION INC INC INITIAL 31 MIN-1 HOUR RADIOLOGI 47536 NICKI ALEISHA C 2 MEDICAL KIERAN EXAMINATI IMAGING ON CHEST ASS SINGLE VIEW FRONTAL ECG 14476 RAND GORDILLO ROUTINE 2 III MARCY III MARCY ECG W/LEAST 12 LDS I&R ONLY O2 CONC 1 E1390 ARON FRAZIER PORT 2 HOME HOME 85%/>02 MEDICAL MEDICAL CONC AT EQUIPME EQUIPME [facility] FLW RATE TRIMMING 56757 BRAUDIS BRAUDIS NONDYSTRO 2 JAM JAM PHIC NAILS ANY NUMBER O2 CONC 1 E1390 ARON FRAZIER PORT 2 HOME HOME 85%/>02 MEDICAL MEDICAL CONC AT EQUIPME EQUIPME [facility] FLW RATE BLOOD 84780 LAURA SANCHEZ COUNT 2 [facility] COMPLETE INC INC AUTO&AUTO DIFRNTL WBC 3D 75841 LAURA SANCHEZ RENDERING 2 [facility] INC INC W/INTERP& POSTPROC DIFF WORK STATION BASIC 03225 LAURA SANCHEZ METABOLIC 2 MEM [facility] PANEL INC INC CALCIUM TOTAL CT SOFT 56016 NICKI STILESUTCHER TISSUE 2 MEDICAL KIERAN NECK W/O IMAGING CONTRAST ASS MATERIAL LOCM Q9967 LAURA SANCHEZ [phone] MEM [facility] MG/ML INC INC IODINE CONCENTRA TION PER ML CT SOFT 45693 LAURA SANCHEZ TISSUE 2 [facility] NECK INC INC W/CONTRAS T MATERIAL O2 CONC 1 E1390 ARON MOSES 2 HOME HOME 85%/>02 MEDICAL MEDICAL CONC AT EQUIPME EQUIPME [facility] FLW RATE O2 CONC 1 E1390 ARON MOSES 2 HOME HOME 85%/>02 MEDICAL MEDICAL CONC AT EQUIPME EQUIPME [facility] FLW RATE CONTINUOU E0601 ARON SHARP S 2 HOME HOME POSITIVE MEDICAL MEDICAL AIRWAY EQUIPME EQUIPME PRESSURE DEVICE O2 CONC 1 E1390 ARON MOSES 2 HOME HOME 85%/>02 MEDICAL MEDICAL CONC AT EQUIPME EQUIPME [facility] FLW RATE CONTINUOU E0601 ARON SHARP S 2 HOME HOME POSITIVE MEDICAL MEDICAL AIRWAY EQUIPME EQUIPME PRESSURE DEVICE O2 CONC 1 E1390 ARON MOSES 2 HOME HOME 85%/>02 MEDICAL MEDICAL CONC AT EQUIPME EQUIPME PRSC FLW RATE CONTINUOU E0601 ARONADRIANNE SHARP S 2 HOME HOME POSITIVE MEDICAL MEDICAL AIRWAY EQUIPME EQUIPME PRESSURE DEVICE NONEMERG [id number] LKLP LKLP TRNSPRT: 2 [facility] ACTION ACTION MTN AREA/OTH SYS ECG 33546 ZEKE BAR ZEKE BAR ROUTINE 2 ECG W/LEAST 12 LDS I&R ONLY ECG 57246 HEEB CHR HEEB CHR ROUTINE 2 ECG W/LEAST 12 LDS I&R ONLY ECG 55856 HEEB CHR HEEB CHR ROUTINE 2 ECG W/LEAST 12 LDS I&R ONLY RADIOLOGI 84990 RADIOLOGY NEILS JONATHAN C 2 EXAMINATI ASSOCIATE ON CHEST S OF [facility] SINGLE VIEW FRONTAL ECG 77848 HEEB CHR HEEB CHR ROUTINE 2 ECG W/LEAST 12 LDS I&R ONLY O2 CONC 1 E1390 ARON KNIGHTADRIANNE FRAZIER PORT 2 HOME HOME 85%/>02 MEDICAL MEDICAL CONC AT EQUIPME EQUIPME PRSC FLW RATE CONTINUOU E0601 ARON SHARP S 2 HOME HOME POSITIVE MEDICAL MEDICAL AIRWAY EQUIPME EQUIPME PRESSURE DEVICE O2 CONC 1 E1390 ARON ARON FRAZIER PORT 1 HOME HOME 85%/>02 MEDICAL MEDICAL CONC AT EQUIPME EQUIPME PRSC FLW RATE CONTINUOU E0601 ARON SHARP S 1 HOME HOME POSITIVE MEDICAL MEDICAL AIRWAY EQUIPME EQUIPME PRESSURE DEVICE FILTER A7038 ARON SHARP DISPBL 1 HOME HOME USED MEDICAL MEDICAL W/POS EQUIPME EQUIPME ARWAY PRESSURE DEVICE FILTER A7039 ARON SHARP NON 1 HOME HOME DISPBL MEDICAL MEDICAL USED EQUIPME EQUIPME W/POS ARWAY PRESS DEVICE NASL A7034 ARON SHARP INTRFCE 1 HOME HOME POS ARWAY MEDICAL MEDICAL PRSS EQUIPME EQUIPME DEVC W/WO HEAD STRAP HEADGEAR A7035 ARON SHARP USED 1 HOME HOME W/POSITIV MEDICAL MEDICAL E AIRWAY EQUIPME EQUIPME PRESSURE DEVICE TUBING A7037 ARON SHARP USED WITH 1 HOME HOME POSITIVE MEDICAL MEDICAL AIRWAY EQUIPME EQUIPME PRESSURE DEVICE [facility] E0562 ARON KNIGHTRELL HEATED 1 HOME HOME USED MEDICAL MEDICAL W/POS EQUIPME EQUIPME ARWAY PRESSURE DEVICE POLYSOM 54190 LEON QUINTERO 5/>YRS 1 ERNST ERNST SLEEP W/CPAP 4/> ADDL KATARINA ATTND POLYSOM 72818 LAURA SANCHEZ 6/>YRS 1 [facility] SLEEP INC INC W/CPAP 4/> [place] [address] NICKI MORAES ABDOMEN & 1 MEDICAL KIERAN PELVIS IMAGING W/O ASS CONTRAST MATERIAL INSJ TEMP 45155 LAURA SANCHEZ NDWELLG 1 [facility] BLADDER INC INC CATHETER SIMPLE COMPREHEN 53705 LAURA SANCHEZ SIVE 1 [facility] METABOLIC INC INC PANEL URNLS DIP 94143 LAURA SANCHEZ 1 [facility] STICK/TAB INC INC LET REAGENT AUTO MICROSCOP Y COLLECTIO 58564 LAURA Khan VENOUS 1 [facility] BLOOD INC INC VENIPUNCT URE CULTURE 09205 LAURA SANCHEZ BACTERIAL 1 [facility] INC INC QUANTTATI VE COLONY COUNT URINE 3D 89782 NICKI STILESUTCHER RENDERING 1 MEDICAL KIERAN IMAGING W/INTERP& ASS POSTPROC DIFF WORK STATION BLOOD 88095 LAURA SANCHEZ COUNT 1 [facility] COMPLETE INC INC AUTO&AUTO DIFRNTL WBC TECHNETIU A9502 LAURA Ornelas TC-99M 1 [facility] TETROFOSM INC INC IN DX PER STUDY DOSE CV STRS 28104 AICHA HOLCOMB TST 1 JEANIE JEANIE XERS&/OR RX CONT ECG I&R ONLY MYOCARDIA 66261 LAURA SANCHEZ L SPECT 1 [facility] MULTIPLE INC INC STUDIES INJECTION J2785 LAURA SANCHEZ 1 [facility] REGADENOS INC INC ON 0.1 MG CV STRS 73100 AICHA RUFFINSON TST 1 JEANIE JEANIE XERS&/OR RX CONT ECG W/O I&R CV STRS 71741 LAURA SANCHEZ TST 1 [facility] XERS&/OR INC INC RX CONT ECG TRCG ONLY INITIAL 18497 AICHA HOLCOMB OBSERVATI 1 JEANIE JEANIE ON CARE/DAY 30 MINUTES RADIOLOGI 91741 NICKI Swartz EXAM 1 MEDICAL KIERAN CHEST 2 IMAGING VIEWS ASS FRONTAL&L ATERAL ECG 11592 PUND CHR PUND CHR ROUTINE 1 ECG W/LEAST 12 LDS I&R ONLY NONEMERG A0120 [facility] TRNSPRT: 1 [facility] ACTION N PAN AREA/OTH SYS ECHO 90431 LAURA SANCHEZ TTHRC R-T 1 [facility] 2D INC INC W/WOM-MOD E COMPL SPEC&COLR D POLYSOM 38383 LEON QUINTERO 6/>YRS 1 ERNST ERNST SLEEP 4/> ADDL KATARINA ATTND POLYSOM 39208 LAURA SANCHEZ 6/>YRS 1 [facility] SLEEP 4/> INC INC ADDL KATARINA ATTND NONINVASI 70639 LAURA SANCHEZ VE 1 [facility] EAR/PULSE INC INC OXIMETRY SINGLE DETER SPMTRY 18310 LAURA SANCHEZ W/VC 1 [facility] EXPIRATOR INC INC Y MARYLOU W/WO MXML VOL VNTJ NONEMERG A0120 LK LK TRNSPRT: 1 [facility] N MTN AREA/OTH SYS CHRMS 42584 LAURA SANCHEZ ANALYSIS 1 [facility] ADDL HIGH [place] [address] LAURA SANCHEZ THYROID 1 [facility] STIMULATI INC INC NG HORMONE TSH COMPREHEN 46783 LAURA SANCHEZ SIVE 1 [facility] METABOLIC INC INC PANEL COLLECTIO 74898 LAURA Khan VENOUS 1 [facility] BLOOD INC INC VENIPUNCT URE CHRMSM 27788 LAURA SANCHEZ COUNT 1 [facility] 15-20 CLL INC INC 2KARYOTYP BANDING BLOOD 99450 LAURA SANCHEZ COUNT 1 [facility] COMPLETE INC INC AUTO&AUTO DIFRNTL WBC COLLECTIO 12773 COMBINED COMBINED N VENOUS 1 PHYSICIAN PHYSICIAN BLOOD S LA S LA VENIPUNCT URE COMPREHEN 05785 COMBINED COMBINED SIVE 1 PHYSICIAN PHYSIC[place] [address] COMBINED COMBINED THYROID 1 PHYSICIAN PHYSICIAN STIMULATI S LA S LA NG HORMONE TSH LIPID 76029 COMBINED COMBINED PANEL 1 PHYSICIAN PHYSICIAN S LA S LA PROSTATE G0103 COMBINED COMBINED CANCER 1 PHYSICIAN PHYSICIAN SCREENING S LA S LA ; PSA TEST TRAVEL [address] MED 1 PHYSICIAN PHYSICIAN NEC LAB S LA S LA SPEC; PRORATD TRIP CHRG NONEMERG A0120 LKLP LKLP TRNSPRT: 1 [facility] N [place] [address] ORAL ORAL SURG 1 PATHOLOGY PATHOLOGY PATHOLOGY LABORATOR LABORATOR GROSS&ARMANDO Y Y ROSCOPIC EXAM URNLS DIP 99130 COMBINED COMBINED 1 PHYSICIAN PHYSICIAN STICK/TAB S LA S LA LET REAGENT AUTO MICROSCOP Y CULTURE 53351 COMBINED COMBINED BACTERIAL 1 PHYSICIAN PHYSICIAN S LA S LA QUANTTATI VE COLONY COUNT URINE ORTHOPANT 66324 THE THE OGRAM 1 IMPLANT & IMPLANT & ORAL ORAL SURGERY C SURGERY C NONEMERG A0120 LKLP LKLP TRNSPRT: 1 [facility] N [facility] AREA/OTH SYS EXC 65478 THE RODRIGUEZ, LESION/TU 1 IMPLANT & III OANH MOR ORAL DENTOALVE SURGERY C OLAR STRUX W/SMPL RPR NONEMERG A0120 LKLP LKLP TRNSPRT: 1 [facility] N PAN AREA/OTH SYS NONEMERG A0120 LKLP LKLP TRNSPRT: 1 [facility] N PAN AREA/OTH SYS OPHTH 20642 MARIANNE [facility] 1 VISION XM&EVAL COMPRE NEW PT 1/> VST SET-UP Q0092 [facility] PORTABLE 1 [facility] X-RAY EQUIPMENT RADEX 46716 [facility] WRIST 1 [facility] COMPLETE MINIMUM 3 VIEWS TRANS R0070 [facility] PRTBL 1 [facility] X-RAY EQP&PERS RICHMOND/NRS RICHMOND-TRIP 1 PT TRANS R0070 [facility] PRTBL 1 [facility] X-RAY EQP&PERS RICHMOND/NRS RICHMOND-TRIP 1 PT RADIOLOGI 61996 [facility] C 1 [facility] EXAMINATI ON CHEST SINGLE VIEW FRONTAL SET-UP Q0092 [facility] PORTABLE 1 [facility] X-RAY EQUIPMENT INSJ TEMP 39727 LAURA SANCHEZ NDWELLG 1 [facility] BLADDER INC INC CATHETER SIMPLE URNLS DIP 23811 LAURA SANCHEZ 1 [facility] STICK/TAB INC INC LET REAGENT AUTO MICROSCOP Y COMPREHEN 43139 LAURA SANCHEZ SIVE 1 [facility] METABOLIC INC INC PANEL BLOOD 44666 LAURA SANCHEZ COUNT 1 [facility] COMPLETE INC INC AUTO&AUTO DIFRNTL WBC 3D 37306 LAURA SANCHEZ RENDERING 1 [facility] INC INC W/INTERP& POSTPROC DIFF WORK STATION AMBULANCE A0429 [facility] SERVICE 1 AMBULANCE AMBULANCE BLS SERVICE SERVICE EMERGENCY TRANSPORT GROUND A0425 [facility] MILEAGE 1 AMBULANCE AMBULANCE [place] [address] LAURA SANCHEZ ABDOMEN & 1 [facility] PELVIS INC INC W/O CONTRAST MATERIAL ECG [address] [facility] ROUTINE 1 [facility] ECG CARDIOLOG W/LEAST Y CLINIC 12 LDS I&R ONLY GROUND A0425 [facility] MILEAGE 1 AMBULANCE AMBULANCE PER SERVICE SERVICE STATUTE MILE TRANS R0075 EXPRESS EXPRESS PRTBL 1 MOBILE MOBILE XRAY DIAGNOSTI DIAGNOSTI EQP&PERS C SE C SE RICHMOND/NRS RICHMOND-TRIP> 1 PT SBSQ [address] CARE/DAY URGENT 25 TREAT MINUTES AMB A0427 [facility] SERVICE 1 AMBULANCE AMBULANCE ALS SERVICE SERVICE EMERGENCY TRANSPORT LEVEL 1 RADIOLOGI 43185 [facility] [place] RADHA C 1 RADIOLOGY BOY EXAMINATI ON CHEST SINGLE VIEW FRONTAL RADEX 09281 EXPRESS EXPRESS WRIST 1 MOBILE MOBILE COMPLETE DIAGNOSTI DIAGNOSTI MINIMUM 3 C SE C SE VIEWS SET-UP Q0092 EXPRESS EXPRESS PORTABLE 1 MOBILE MOBILE X-RAY DIAGNOSTI DIAGNOSTI EQUIPMENT C SE C SE RADEX 21112 EXPRESS EXPRESS HAND 1 MOBILE MOBILE MINIMUM 3 DIAGNOSTI DIAGNOSTI VIEWS C SE C SE SBSQ 65818 [facility] 1 [place]PH[place] CARE/DAY URGENT 35 TREAT MINUTES SBSQ 26145 [facility] 1 [place] CARE/DAY URGENT 25 TREAT MINUTES SBSQ 02772 [facility] 1 [place] CARE/DAY URGENT 25 TREAT MINUTES SBSQ 14794 [place] [address] URGENT CARE/DAY TREATMENT 35 A MINUTES RADEX 14809 EXPRESS EXPRESS HAND 1 MOBILE MOBILE MINIMUM 3 DIAGNOSTI DIAGNOSTI VIEWS C SE C SE SET-UP Q0092 EXPRESS EXPRESS PORTABLE 1 MOBILE MOBILE X-RAY DIAGNOSTI DIAGNOSTI EQUIPMENT C SE C SE TRANS R0070 EXPRESS EXPRESS PRTBL 1 MOBILE MOBILE X-RAY DIAGNOSTI DIAGNOSTI EQP&PERS C SE C SE RICHMOND/NRS RICHMOND-TRIP 1 PT SBSQ 29380 [facility] 1 URGENT CARE/DAY TREATMENT 35 A MINUTES SBSQ 07283 [facility] 1 [place] CARE/DAY URGENT 35 TREAT MINUTES SET-UP Q0092 EXPRESS EXPRESS PORTABLE 1 MOBILE MOBILE X-RAY DIAGNOSTI DIAGNOSTI EQUIPMENT C SE C SE RADIOLOGI 57505 EXPRESS EXPRESS C EXAM 1 MOBILE MOBILE CHEST 2 DIAGNOSTI DIAGNOSTI VIEWS C SE C SE FRONTAL&L ATERAL TRANS R0070 EXPRESS EXPRESS PRTBL 1 MOBILE MOBILE X-RAY DIAGNOSTI DIAGNOSTI EQP&PERS C SE C SE RICHMOND/NRS RICHMOND-TRIP 1 PT ECG 19237 [facility] ROUTINE 1 [place] ECG URGENT W/LEAST TREAT 12 LDS I&R ONLY ECG 12098 EXPRESS EXPRESS ROUTINE 1 MOBILE MOBILE ECG DIAGNOSTI DIAGNOSTI W/LEAST C SE C SE 12 LDS TRCG ONLY W/O I&R INITIAL 02974 [facility] 1 URGENT CARE/DAY [place]RE[place]MENT 50 [place] [address] [facility]ILY [facility] THYROID 1 [facility] STIMULATI [facility] [place] [address] FAMILY MONONORBERTO FREE 1 [facility] THYROXINE [facility] [place] RADEX 66590 [facility]EN[facility]AL LYN J SPINE 1 RADIOLOGY THORACIC ASSOC MINIMUM 4 VIEWS COMPREHEN 79512 [facility] SIVE 1 [facility] METABOLIC ASSOC OF PANEL [place] COLLECTIO 82366 FAMILY FAMILY N VENOUS 1 PRACT PRACT BLOOD ASSOC OF ASSOC OF VENIPUNCT [place] PS URE LIPID 86053 [facility] PANEL 1 [facility] [place] URNLS DIP 95681 FAMILY MONOHAN 1 PRACT RONALD STICK/TAB ASSOC OF [place] [address] [facility] [place] ABDOMEN & 1 RADIOLOGY LD A PELVIS W/CONTRAS T MATERIAL Encounters Encounter Start End Date Code Location Performer Type Date OFFICE 11428 MUNDO STRANGEEN 7 7 MEDICAL T VISIT SERV 25 FOUNDATIO MINUTES [facility] LAURA - OTHER 7 7 [facility] LAURA - OTHER 7 7 [facility] 7 7 [facility]URA - 7 7 [facility] OFF[facility] 91821 LAURA LEAL OUTPATIEN 7 7 [facility] 10 P MIN[facility] 7 7 [facility] 7 7 [facility] OFF[facility] 71786 MUNDO BENAVIDES OUTPATIEN 7 7 MEDICAL T VISIT SERV 40 FOUNDATIO MINUTES [facility] LAURA - OTHER 7 7 [facility] INC [facility] IN[facility] 7 7 [facility] E OFFICE 77149 [facility] PETTE[facility] OUTPATIEN 7 7 PHYSICIAN T VISIT S GROUP 10 MINUTES HOSPITAL LAURA - 7 7 [facility] OUTPATIEN INC T OFFICE 67075 [facility] MEREDITH OUTPATIEN 7 7 PHYSICIAN T VISIT S GROUP 25 MINUTES OFFICE 10879 LAURA LEAL OUTPATIEN 7 7 [facility] T VISIT HOSPITAL 10 P MINUTES [facility] INPATIENT 7 7 [facility] - 7 7 [facility]PATIEN [facility]PITAL LAURA - 7 7 [facility] OUTPATIEN [facility] OFFICE 21083 LUARA LEAL OUTPATIEN 7 7 [facility] T VISIT HOSPITAL 10 P MINUTES OFFICE 88633 [facility] PETTEY OUTPATIEN 7 7 PHYSICIAN T VISIT S GROUP 15 MINUTES HOSPITAL LAURA - 7 7 [facility] OUTPATIEN [facility] LAURA - OTHER 7 7 [facility] 7 7 [facility] OFFICE 36599 [facility] BRYANT OUTPATIEN 7 7 PHYSICIAN T NEW 20 S GROUP MINUTES [facility] [place] INPATIENT 7 7 [facility] E OFFICE 64026 [facility] MEREDITH OUTPATIEN 7 7 PHYSICIAN T VISIT S GROUP 25 MINUTES HOSPITAL LAURA - 7 7 [facility] OUTPATIEN INC T [facility] INPATIENT 7 7 [facility] 7 7 [facility] INPATIENT 7 7 [facility]ALTH[facility] E EMERGENCY 45755 KEVIN PATRICK DEPT 7 7 PHYSICIAN VISIT S, [facility] HIGH SEVERITY& THREAT [facility] - 7 7 [facility] OFFICE 27259 MUNDO [place] OUTPATIEN 7 7 MEDICAL T VISIT SERV 25 FOUNDATIO MINUTES N [facility] 7 7 [facility] IN[facility] 6 6 [facility] INPATIENT 6 6 [facility] LAURA - 6 6 [facility]PATIEN [facility] T OFFICE 44576 MUNDO BENAVIDES OUTPATIEN 6 6 MEDICAL T VISIT SERV 25 FOUNDATIO MINUTES N [facility] 6 6 [facility] 6 6 [facility] LAURA - 6 6 [facility]EN [facility] T OFFICE 66248 [facility] MEREDITH OUTPATIEN 6 6 PHYSICIAN MAT T VISIT S GROUP 25 MINUTES [facility] 6 6 [facility] 6 [facility] INPATIENT 6 6 [facility]ALTH[facility] E OFFICE 86101 [facility] MER[facility]ITH OUTPATIEN 6 6 PHYSICIAN MAT T VISIT S GROUP 25 MINUTES OFFICE 95613 [facility] MER[facility] OUTPATIEN 6 6 PHYSICIAN MAT T VISIT S GROUP 25 MINUTES [facility]OSPITAL PATRICIA[facility]IE - 6 6 [facility] - 6 6 [facility] OUTPATIEN INC T OFFICE 44577 [facility] MEREDITH OUTPATIEN 6 6 PHYSICIAN MAT T VISIT S GROUP 25 MINUTES HOSPITAL PATRICIAWVIE - 6 6 [facility] LAURA - 6 6 [facility] OUTPATIEN INC T OFFICE 93039 [facility]ARD[facility] OUTPATIEN 6 6 CULAR MAT T VISIT CONSULTAN 25 TS O MINUTES HOSPITAL LAURA - 5 5 [facility] OUTPATIEN INC T EMERGENCY 16482 LAURA 5 5 [facility] DEPARTMEN INC T VISIT LOW/MODER SEVERITY OFFICE 46730 CARDI[facility] OUTPATIEN 5 5 CULAR MAT T VISIT CONSULTAN 40 TS O MINUTES [facility] LAURA - 5 5 [facility] OUTPATIEN INC T OFFICE 33797 [facility] 5 5 Y T VISIT 5 H[facility]PITAL [facility] UNIVERSIT - 5 5 Y OUTCASA [facility] LAURA - 5 5 [facility] OUTPATIEN INC T EMERGENCY 45423 LAURA 5 5 [facility] DEPARTMEN INC T VISIT MODERATE SEVERITY HOSPITAL LAURA - 5 5 [facility] LAURA - 4 4 [facility] OUTPATIEN INC T OFFICE 43559 MUNDO VICKIER OUTPATIEN 4 4 MEDICAL SHA T NEW SERV MINUTES FOUNDATIO N OFFICE 33231 [facility] [place] [facility] OUT[facility] 4 4 T VISIT 10 MINUTES OFFICE 70883 [facility] [place] [facility] OUT[facility]IEN 4 4 T VISIT 10 MINUTES HOSPITAL LAURA - 4 4 [facility] OUTPATIEN INC T OFFICE 02586 ANNETTE CRUZON OUTPATIEN 4 4 DEUCE DEUCE T NEW 30 MINUTES HOSPITAL LAURA - 4 4 [facility] OUTPATIEN INC T OFFICE 89630 [facility] PETTE[facility] OUTPATIEN 4 4 PHYSICIAN JAM T VISIT S GROUP 15 MINUTES HOSPITAL LAURA - 3 3 [facility] OUTPATIEN [facility] LA[facility]A - 3 3 [facility] LAURA - 3 3 [facility] OUTPATIEN [facility] Emergency LINDSEY Sánchez MD (ER) 3 18:45 3 19:27 [facility] OFFICE 64636 [facility] 3 NEUROLOGY DYLAN T VISIT CENTER 15 [place] MINUTES [facility] - 3 3 [facility] - 3 3 [facility]PATIEN [facility] OFFICE 21369 [facility] 3 3 FOOT AND T NEW 20 ANKLE MINUTES CENTER OFFICE 98612 [facility] 3 3 [facility] VISIT HOSPITAL 25 MINUTES Emergency LINDSEY Patrick MD (ER) 3 23:50 3 01:33 [facility] EMERGENCY 86483 LAURA [address] [facility] VISIT HIGH/URGE NT SEVERITY EMERGENCY 74372 ERIC PATRICK DEPT 3 3 MEDICAL ARMANDO VISIT GROUP, HIGH PLLC SEVERITY& THREAT [facility] LAURA - 3 3 [facility] OUTPATIEN [facility] [address] [facility] [address] T VISIT LOW/MODER SEVERITY EMERGENCY 07897 [facility] 3 3 [facility] EMERGENCY T VISIT PHYSI MODERATE SEVERITY OFFICE 25[address] [facility] OUT[facility] 3 3 ZO CARR DAY T VISIT CARDIOLOG 15 Y CLINIC MINUTES HOSPITAL LAURA - 3 3 [facility] OUTPATIEN [facility] OFFICE 16196 C ANTONETTE DORIS OUTPATIEN 2 2 DORIS Dillon MD [facility] MINUTES OFFICE [address] [facility] [place] OUTPATIEN 2 2 ZO WINN T VISIT CARDIOLOG 25 Y CLINIC MINUTES HOSPITAL LAURA - 2 2 [facility] OUTPATIEN [facility] HOSPITAL LAURA - 2 2 [facility] OUTPATIEN [facility] EMERGENCY 52081 LAURA 2 2 [facility] DEPARTMEN [facility] T VISIT MODERATE SEVERITY HOSPITAL LA[facility]A - 2 2 [facility] OUTPATIEN [facility] HOSPITAL LAURA - 2 2 [facility] OUTPATIEN [facility] EMERGENCY 83659 LAURA 2 2 [facility] DEPARTMEN [facility] T VISIT HIGH/URGE NT SEVERITY HOSPITAL LAURA - 2 2 [facility] OUTPATIEN [facility] EMERGENCY 78650 LAURA 2 2 [facility] T VISIT LOW/MODER SEVERITY HOSPITAL LA[facility]A - 1 1 [facility] OUTPATIEN [facility] EMERGENCY 09627 LAURA 1 1 [facility]MEN [facility] T VISIT HIGH/URGE NT SEVERITY HOSPITAL LAURA - 1 1 [facility] OUTPATIEN [facility] HOSPITAL LAURA - 1 1 [facility] OUTPATIEN [facility] HOS[facility] LAURA - 1 1 [facility] - 1 1 [facility] - 1 1 [facility] OUTPATIEN [facility] OFFICE 16550 [place] BE[facility] OUTPATIEN 1 1 [facility] 60 SERV MINUTES FOUNDATIO EMERGENCY 56581 LAURA 1 1 [facility] DEPARTMEN INC T VISIT HIGH/URGE NT SEVERITY EMERGENCY 46605 AMANDA PATRICK DEPT 1 1 EMERGENCY ARMANDO VISIT SERVICES HIGH SEVERITY& THREAT [facility] LAURA - 1 1 [facility] OUTPATIEN INC T OFFICE 85624 LAURA MATHIS OUTPATIEN 1 1 [facility] 30 HOSPITAL MINUTES P OFFICE 80412 FAMILY MONOHAN OUTPATIEN 1 1 PRACT RONALD T VISIT ASSOC OF 25 [place] PS MINUTES OFFICE 05155 FAMILY MONOHAN OUTPATIEN 1 1 PRACT RONALD T VISIT ASSOC OF 25 [place] PS MINUTES EMERGENCY 30245 [facility] DESMOND DEPT 1 1 PRIMARY CARLOS VISIT CARE HIGH PHYSICANS SEVERITY& M THREAT FUN
--- OUTSIDE RECORDS SUMMARY | 2017-05-30 13:05 | External Medical Summary Rpt | CCD ---
Author Author , GRAHAM Organization GRAHAM Address Unknown Phone [email or web address] Care Team Providers Care Hitch Technician Name Role Phone [facility], [facility] Unavailable Unavailable [facility], [facility] Unavailable Unavailable RADHA BOY, RADHA Unavailable Unavailable BOY [facility] Unavailable Unavailable PHYSICANS M, [facility] M MEL, LEAL Unavailable Unavailable [facility] Unavailable Unavailable [facility], [facility] Unavailable Unavailable [facility]OC[facility], [facility] DESMOND CARLOS, Unavailable Unavailable DESMOND CARLOS ANJUR-KAPALI DAY, Unavailable Unavailable ANJUR-KAPALI DAY MAGDALENA FAD, MAGDALENA FAD Unavailable Unavailable [facility] Un[facility] [place] BEINEKE GILMA, BEINEKE Unavailable Unavailable GILMA BESSON JEANIE, BESSON Unavailable Unavailable JEANIE BESSON JEANIE, BESSON Unavailable Unavailable JEANIE ORDONEZ, ORDONEZ Unavailable Unavailable ORDONEZ ALL, ORDONEZ ALL Unavailable Unavailable BRAUDIS JAM, BRAUDIS Unavailable Unavailable JAM BRAUDIS JAM, BRAUDIS Unavailable Unavailable JAM [facility] Unavailable Unavailable SERVICE, [facility] Unavailable Unavailable SERVICE, [facility] DOBSON LAR, DOBSON LAR [...] ERNST QUINTERO ERNST, Unavailable Unavailable QUINTERO ERNST [facility], Unavailable Unavailable [facility] VINH DYLAN, Unavailable Unavailable VINH DYLAN [...] ARMANDO SUAD ARMANDO, SUAD ARMANDO Unavailable Unavailable [facility] Unavailable Unavailable INC, [facility] Un[facility] Unavailable [facility], [facility] Unavailable Unavailable HOSPITAL P, [facility] HEEB CH[facility], [facility] Unavailable Unavailable [facility] Unavailable Unavailable [facility] Unavailable Unavailable [facility], Unavailable Unavailable [facility] Unavailable [facility]available [...] JR DWI, HAROLDO Unavailable Unavailable JR DWI [facility] Unavailable Unavailable 11, [facility], Unavailable Unavailable [facility] Unavailable Unavailable ACTION, [facility] Kenya Patrick MD, Unavailable Unavailable Kenya BURRIS, Unavailable Unavailable ELENI BURRIS KNOWLES JAM, Unavailable Unavailable KNOWLES JAM BENAVIDES, BENAVIDES Unavailable Unavailable BENAVIDES JAM, Unavailable Unavailable BENAVIDES J[facility] Unavailable Unavailable MEDICAL, [facility] Unavailable Unavailable MED[facility], [facility] Unavailable [facility], [facility] Unavailable Unavailable SERVICE, [facility] MONOHAN RONALD, MONOHAN Unavailable Unavailable RONALD SIEGEL JUAQUIN, SIEGEL Unavailable Unavailable JUAQUIN ONDINA, ONDINA Unavailable Unavailable ONDINA SHA, ONDINA Unavailable Unavailable SHA NEILS JONATHAN, NEILS JONATHAN Unavailable Unavailable [facility] Unavailable Unavailable URGENT TREAT, [facility] ORAL PATHOLOGY Unavailable [...] TREATMENT [facility] Unavailable Unavailable EMERGENCY [facility], [facility]available Unavailable OF [facility], [facility], Unavailable Unavailable [facility] Unavailable Unavailable CLINIC, [facility] Unavailable Unavailable SURGERY C, [facility] Unavailable Unavailable HOSPITALS, [facility], Unavailable Unavailable [facility] WEHRMAN III MARCY, Unavailable Unavailable WEHRMAN III MARCY ZEKE BAR, ZEKE BAR Unavailable Unavailable ZEKE BAR, ZEKE BAR Unavailable Unavailable [facility], Unavailable Unavailable [facility] Purpose Continuity of Care Document - 12-28-2010 through 2016 Problems Code Diagnosis DOS Provider Status E119 TYPE 2 05-08-2017 [facility] WITHOUT COMPLICATIO NS R109 UNSPECIFIED 05-08-2017 [facility]BDOMINAL [facility] PAIN [facility] D649 ANEMIA 04-24-2017 [facility] UNSPECIFIED [facility]ALTH ASSOCIATES E6601 MORBID 04-24-2017 [place] [facility] SEVERE SERV OBESITY DUE FOUNDATION TO EXCESS CALORIES J449 CHRONIC 04-24-2017 [place] [facility] OBSTRUCTIVE SERV PULMONARY FOUNDATION DISEASE UNS J9610 CHRONIC 04-24-2017 [place] [facility] RESPIRATORY SERV FAIL UNS FOUNDATION HYPOXIA/HYP ERCAPNIA J988 OTHER 04-24-2017 [place] [facility] SPECIFIED SERV RESPIRATORY FOUNDATION DISORDERS N390 URINARY 04-07-2017 [facility] TRACT [facility] INFECTION INC SITE NOT SPECIFIED I2510 ASHD [place] 04-06-2017 [place] [facility] ARTERY W/O ANGINA PECTORIS R627 ADULT 04-06-2017 [facility] FAILURE TO HEALTH THRIVE ASSOCIATES G4733 OBSTRUCTIVE 04-04-2017 [facility] SLEEP [facility] APNEA ADULT INC PEDIATRIC I509 HEART 04-04-2017 [facility] FAILURE [facility] UNSPECIFIED INC R0602 SHORTNESS 04-04-2017 [place] OF BREATH MEDICAL IMAGING ASS R1310 DYSPHAGIA 04-04-2017 [place] UNSPECIFIED MEDICAL IMAGING ASS R5383 OTHER 04-04-2017 [facility] R942 ABNORMAL 04-04-2017 [facility] RESULTS OF [facility] PULMONARY INC FUNCTION STUDIES E162 HYPOGLYCEMI 03-27-2017 [facility] A HEALTH UNSPECIFIED ASSOCIATES W40642 OTHER LONG 03-21-2017 [facility] TERM [facility] CURRENT ASSOCIATES DRUG THERAPY B351 TINEA 02-05-2017 SPECIAL UNGUIUM CARE PODIATRY OF [place]AM[place] D83456 PAIN IN 02-05-2017 SPECIAL RIGHT TOES CARE PODIATRY OF [place] T12420 PAIN IN 02-05-2017 SPECIAL LEFT TOES CARE PODIATRY OF [place] R69 ILLNESS 01-16-2017 [facility] UNSPECIFIED TRANSPORTAT ION SER Z9989 DEPENDENCE 01-16-2017 [place] [facility] ON OTHER SERV ENABLING FOUNDATION MACHINES & DEVICES S86906 PAIN IN 01-13-2017 [facility] RIGHT KNEE LLC D41203 PAIN IN 01-13-2017 [facility] RIGHT LEG LLC B85072 PAIN IN 01-13-2017 [facility] RIGHT LOWER LLC LEG I10 ESSENTIAL 01-09-2017 [facility]IMARY [facility] HYPERTENSIO ASSOCIATES N R4182 ALTERED 01-09-2017 [facility] MENTAL HEALTH STATUS ASSOCIATES UNSPECIFIED R531 WEAKNESS 01-09-2017 [facility] Z7409 OTHER 01-09-2017 [facility] REDUCED [facility] MOBILITY INC I517 CARDIOMEGAL 01-08-2017 [facility] Y LLC J99510 PAIN IN 01-04-2017 [place] RIGHT WRIST MEDICAL IMAGING ASS M7989 OTHER 01-04-2017 [place] SPECIFIED MEDICAL SOFT TISSUE IMAGING ASS DISORDERS R609 EDEMA 01-04-2017 [facility] UNSPECIFIED [facility] INC B80158 PAIN IN 01-01-2017 [facility] RIGHT LLC FOREARM M7541 IMPINGEMENT 12-28-2016 [facility] SYNDROME PHYSICIANS OF RIGHT GROUP SHOULDER E785 HYPERLIPIDE 12-19-2016 [facility] OSMANY PHYSICIANS UNSPECIFIED GROUP I119 HYPERTENSIV 12-19-2016 [facility] E HEART PHYSICIANS DISEASE GROUP WITHOUT HEART FAILURE N3000 ACUTE 12-12-2016 [facility] P HEMATURIA I272 OTHER 11-27-2016 [facility]OS[facility] PULMONARY INC HYPERTENSIO N N3001 ACUTE 11-21-2016 [facility] P HEMATURIA M57010 PAIN IN 11-16-2016 [place] RIGHT MEDICAL SHOULDER IMAGING ASS K140 GLOSSITIS 11-02-2016 [facility] R918 OTHER 10-11-2016 [facility] NONSPECIFIC LLC ABNORMAL FINDING OF LUNG FIELD R0682 TACHYPNEA 09-19-2016 [facility] NOT PHYSICIANS ELSEWHERE GROUP CLASSIFIED R072 PRECORDIAL 09-04-2016 [facility] PAIN PHYSICIANS, [facility] R0789 OTHER CHEST 09-04-2016 [facility] PAIN AMBULANCE SERVICE R079 CHEST PAIN 09-04-2016 [place] UNSPECIFIED MEDICAL IMAGING ASS Z955 PRESENCE OF 09-04-2016 [facility] P IMPLANT & GRAFT S35164 MECHANICAL 08-24-2016 [place] MED[facility] PTOSIS OF SERV RIGHT FOUNDATION EYELID J19621 DERMATOCHAL 08-24-2016 [place] MED[facility] ASIS OF SERV RIGHT EYE FOUNDATION UNSPECIFIED EYELID W43529 DERMATOCHAL 08-24-2016 [place] MEDICAL ASIS OF SERV LEFT EYE FOUNDATION UNSPECIFIED EYELID G4730 SLEEP APNEA 06-07-2016 [place] MED[facility] SERV UNSPECIFIED FOUNDATION E876 HYPOKALEMIA 05-29-2016 [facility] K219 GASTRO-ESOP 04-25-2016 [facility] REFLUX [facility] P WITHOUT ESOPHAGITIS T91976 SPONDYLOSIS 04-04-2016 [place] W/O MEDICAL MYELOPATH/R IMAGING ASS ADICULOPATH Y CERV RGN M5032 OTH CERV 04-04-2016 [place] DISC MEDICAL DEGENERATIO IMAGING ASS N MID-CERVICA L REGION M542 CERVICALGIA 04-04-2016 [place] [facility] IM[facility] ASS M545 LOW BACK 04-04-2016 [place] PAIN MEDICAL IMAGING ASS M546 PAIN IN 04-04-2016 [place] THORACIC MEDICAL SPINE IMAGING ASS S432KTC UNSPECIFIED 04-04-2016 [place] INJURY OF MEDICAL NECK IMAGING ASS INITIAL ENCOUNTER Q7852PT UNSPECIFIED 04-04-2016 [place] INJURY MEDICAL LOWER BACK IMAGING ASS INITIAL ENCOUNTER K449 DIAPHRAGMAT 03-03-2016 [facility] IC HERNIA [facility] W/O HOSPITAL P OBSTRUCTION OR GANGRENE T15032 PERSONAL 03-03-2016 [facility] HISTORY OF [facility] NICOTINE [facility] P DEPENDENCE I208 OTHER FORMS 02-25-2016 [facility] OF ANGINA PHYSICIANS PECTORIS GROUP G28381 [facility] [place] 02-25-2016 [facility] COR ART PHYSICIANS W/UNSTABLE GROUP ANGINA PECTORIS E662 MORBID 02-21-2016 [facility] SEVERE [facility]ITY [facility]PITAL P W/ALVEOLAR HYPOVENTILA TION Z26089 [facility] [place] 02-21-2016 [facility] P ANGINA PECTORIS M654 RADIAL 02-16-2016 [facility] STYLOID [facility] TENOSYNOVIT INC IS DE QUERVAIN R75228 OTHER 02-16-2016 [facility] SYNOVITIS [facility] AND INC TENOSYNOVIT IS RIGHT HAND I209 ANGINA 12-08-2015 [place] [facility]IONAL UNSPECIFIED MEDICAL A18326 [facility] [place] 12-08-2015 [facility] COR ART PHYSICIANS W/OTH FORMS GROUP ANGINA PECTORIS R0600 DYSPNEA 11-29-2015 [facility] UNSPECIFIED [facility] H[facility] INC E663I0X CONCUSSION 11-20-2015 [facility] W/LOC 30 [facility] P INITIAL ENCOUNTER S4078RU UNSPECIFIED 11-20-2015 [facility] INJURY OF MEDICAL HEAD IMAGING ASS INITIAL ENCOUNTER M349UPT STRAIN 11-20-2015 [facility] MUSCLE [facility] P NECK LEVL INIT ENC B39596H CONTUSION 11-20-2015 [facility] UNS BACK [facility] THORAX [facility] P INITIAL ENCOUNTER Z043 ENCOUNTER 11-20-2015 [place] EXAM & MEDICAL OBSERVATION IMAGING ASS FOLLOW OT ACCIDENT R339 RETENTION 07-12-2015 BESSON JEANIE OF URINE UNSPECIFIED F96381 PAIN IN 06-30-2015 [place] LEFT MEDICAL FINGERS IMAGING ASS F2190XJ UNSPECIFIED 06-30-2015 [facility] INJURY LT MEDICAL WRIST HAND IMAGING ASS FINGERS INITIAL B353 TINEA PEDIS 06-08-2015 [facility] INC 33077 OBSTRUCTIVE 05-04-2015 [facility] [place] [place] [facility] [place] [address]897 UNSPEC HTN 05-04-2015 [facility] HEART LAR DISEASE [facility] WITHOUT O HEART FAIL 06911 COR 05-04-2015 [facility] ATHEROSLERO [facility] UNSPEC INC TYPE VESSEL [place] TRI[place]/MAHSA T 4160 PRIMARY 05-04-2015 [facility] PULMONARY LAR HYPERTENSIO CONSULTANTS N O 4168 OTHER 05-04-2015 [facility] CHRONIC [facility] PULMONARY INC HEART DISEASES 496 CHRONIC 05-04-2015 [facility] AIRWAY [facility] OBSTRUCTION INC NEC 74955 05-04-2015 [facility] ION SER V7284 UNSPECIFIED 05-04-2015 [facility] HOSP PRE-OPERATI INC VE EXAMINATION 3699 UNSPECIFIED 04-28-2015 [facility] LOSS 60705 UNSPECIFIED 04-28-2015 [facility] EYELID V7283 OTHER 04-28-2015 [facility] PRE-OPERATI VE EXAMINATION 33181 ACUTE 02-16-2015 [facility] RESPIRATORY FAILURE 4111 INTERMEDIAT 01-25-2015 [facility] E CORONARY LAR SYNDROME CONSULTANTS O 4293 CARDIOMEGAL 01-23-2015 [place] Y MEDICAL IMAGING ASS 5920 CALCULUS OF 01-23-2015 [place] KIDNEY MEDICAL IMAGING ASS 14696 UNSPECIFIED 01-23-2015 [place] RETENTION MEDICAL OF URINE IMAGING ASS 60906 ABDOMINAL 01-23-2015 [place] PAIN RIGHT MEDICAL LOWER IMAGING ASS QUADRANT 54953 PAIN IN 01-03-2015 [place] JOINT MEDICAL PELVIC IMAGING ASS REGION AND THIGH 18846 DISPLCMT 01-03-2015 [place] THOR MEDICAL INTERVERT IMAGING ASS DISC WITHOUT MYELOPATHY 7231 CERVICALGIA 01-03-2015 [place] [facility] 7241 PAIN IN 01-03-2015 [place] THORACIC MEDICAL SPINE IMAGING ASS 46652 CHEST PAIN 01-03-2015 [place] UNSPECIFIED MEDICAL IMAGING ASS 69933 HYPERTENSIV 12-28-2014 [facility] E HEART [facility] DISEASE INC UNSPEC W/HEART FAIL 4280 CONGESTIVE 12-28-2014 [facility] HEART [facility] FAILURE INC UNSPECIFIED 62748 ESOPHAGEAL 12-28-2014 [facility] REFLUX [facility] INC 61373 SHORTNESS 12-28-2014 [place] OF BREATH MEDICAL IMAGING ASS 76423 OTHER 12-18-2014 [facility] DYSPNEA [place] [address] MECHANICAL 04-01-2014 [email or web address] MEDICAL PTOSIS SERV FOUNDATION 2449 UNSPECIFIED 03-18-2014 [facility] [place]YP[place]M 60170 PANNUS 02-18-2014 [email or web address] MEDICAL SERV FOUNDATION 5950 ACUTE 12-18-2013 [facility] CYSTITIS [facility] P 75634 NOCTURNAL 12-18-2013 [facility] [address] [facility] P 51806 OTHER 11-24-2013 [facility] MUCOPURULEN T CONJUNCTIVI TIS 82048 UNSPECIFIED 10-02-2013 [facility] P E 3831 CHRONIC 09-05-2013 [facility] MASTOIDITIS [facility] INC 3839 UNSPECIFIED 09-05-2013 [facility] MASTOIDITIS INC 40371 UNSPECIFIED 09-05-2013 [facility] OTALGIA [facility] INC 470 DEVIATED 09-05-2013 [place] NASAL MEDICAL SEPTUM IMAGING ASS 98061 OTHER 09-05-2013 [place] DISEASES OF MEDICAL NASAL IMAGING ASS CAVITY AND SINUSES 35447 ARTHRALGIA 09-05-2013 [facility] OF MEM [facility]OS[facility] TEMPOROMAND INC IBULAR JOINT 00254 PAIN IN 08-15-2013 [facility] JOINT, PHYSICIANS FOREARM GROUP 91439 PAIN IN 08-15-2013 [facility] JOINT, [facility] LOWER LEG INC 69857 PLICA 08-15-2013 [facility] SYNDROME PHYSICIANS GROUP 3540 CARPAL 06-23-2013 [facility] TUNNEL [facility] SYNDROME INC V5869 LONG-TERM 06-23-2013 [facility] (CURRENT) [facility] USE OF INC OTHER MEDICATIONS 2724 OTHER AND 05-23-2013 [facility] P HYPERLIPIDE OSMANY 5180 PULMONARY 05-23-2013 [place] COLLAPSE [facility]ICAL IMAGING ASS 81078 ACUTE 05-08-2013 ELENI FOLLICULAR JAM CONJUNCTIVI TIS 26742 CONTACT AND 05-08-2013 [facility] ALLERGIC JAM DERMATITIS OF EYELID 92314 VITREOUS 05-08-2013 [facility] DEGENERATIO JAM N 3688 OTHER 04-16-2013 [facility] SPECIFIED [facility] [place] DISTURBANCE S 7820 DISTURBANCE 04-16-2013 [facility] OF SKIN NEUROLOGY SENSATION [facility] [place] 1101 DERMATOPHYT 04-11-2013 RAMÍREZ BURRIS OSIS OF NAIL 86842 ATHEROSCLER 04-11-2013 RAMÍREZ BURRIS OSIS [place] ART EXTREMITIES UNSPEC 7011 ACQUIRED 04-11-2013 BRAFERNANDA BURRIS KERATODERMA 7295 PAIN IN 04-11-2013 BRAUDIS JAM SOFT TISSUES OF LIMB 70807 SPONDYLOSIS 03-19-2013 [place] UNSPEC MEDICAL SITE W/O IMAGING ASS MENTION MYELOPATHY 7238 OTHER 03-19-2013 [place] SYNDROMES MEDICAL AFFECTING IMAGING ASS CERVICAL REGION 94908 DIAB W/O 02-13-2013 [facility] COMP TYPE [facility] II/UNS NOT INC STATED UNCNTRL 25061 BARRETTS 02-13-2013 [facility] ESOPHAGUS SUNITHA & DUBILIER 7871 HEARTBURN 02-13-2013 [facility] INC 71485 ONYCHIA AND 02-06-2013 [facility] PARONYCHIA AND ANKLE OF TOE CENTER 7030 INGROWING 02-06-2013 [facility] NAIL AND ANKLE CENTER 340 MULTIPLE 01-30-2013 [facility] [address] [facility] 4149 UNSPECIFIED 01-30-2013 [facility] CHRONIC [facility] ISCHEMIC HOSPITAL HEART DISEASE 14034 OTHER 01-30-2013 [facility] CONVULSIONS [facility] 28779 UNSPECIFIED 01-30-2013 [facility] SLEEP [facility]ITAL 599.70 599.70 01-16-2013 Zenia HEMATURIA, [facility] UNSPECIFIED Hospital 782.0 782.0 SKIN 01-16-2013 [facility] SENSATION [facility] DISTURB Hospital 786.05 786.05 01-16-2013 Zenia SHORTNESS [facility] OF BREATH [facility] 26625 HEMATURIA 01-15-2013 [facility] 904[facility] ABDOMINAL 01-15-2013 [facility] PAIN, AMBULANCE UNSPECIFIED SERVICE SITE 80534 PUNCTATE 01-08-2013 [facility] N EMERGENCY PHYSI 20592 BLEPHARITIS 01-08-2013 [facility] UNSPECIFIED V7644 SPECIAL 11-13-2012 COMBINED SCREENING PHYSICIANS MALIGNANT LA NEOPLASM OF PROSTATE 5990 URINARY 11-11-2012 COMBINED TRACT PHYSICIANS INFECTION LA SITE NOT SPECIFIED 4019 UNSPECIFIED 10-28-2012 [facility] ESSENTIAL CARDIOLOGY HYPERTENSIO CLINIC N 53723 CORONARY 10-28-2012 [facility] ATHEROSCLER CARDIOLOGY OSIS [place] [facility] CORONARY ARTERY 96139 PAIN IN 10-27-2012 [facility]INT, [place] [address] PAIN IN 10-27-2012 [facility] JOINT, MOBILE UPPER ARM DIAGNOSTIC SE 7823 EDEMA 09-19-2012 BRAUDIS JAM 40513 DIVERTICULO 08-08-2012 [facility] SIS OF MEM HOS[facility] COLON INC 5693 HEMORRHAGE 08-08-2012 [facility] OF RECTUM [facility] AND ANUS INC V160 FM HX 08-01-2012 C ANTONETTE MALIGNANT DORIS NEOPLASM PSC GASTROINTES TINAL TRACT V7651 SPECIAL 08-01-2012 C ANTONETTE SCREENING DORIS FOR PSC MALIGNANT NEOPLASMS COLON 4139 OTHER AND 03-25-2012 HAROLDO MARTINEZ UNSPECIFIED DWI ANGINA PECTORIS 5533 DIAPHRAGMAT 03-10-2012 [facility] TH[facility]AS W/O MEDICAL MENTION IMAGING ASS OBSTRUCTION /GANGREN 5718 OTHER 03-10-2012 [place] CHRONIC MEDICAL NONALCOHOLI IMAGING ASS C LIVER DISEASE 5939 UNSPECIFIED 03-10-2012 [place] DISORDER MEDICAL OF KIDNEY IMAGING ASS AND URETER 7881 DYSURIA 03-07-2012 [facility] HOSP INC 4589 UNSPECIFIED 03-04-2012 WEHRMAN III MARCY HYPOTENSION 5849 ACUTE 03-04-2012 WEHRMAN III KIDNEY MARCY FAILURE UNSPECIFIED 7224 DEGENERATIO 01-25-2012 [place] N OF MEDICAL CERVICAL IMAGING ASS INTERVERTEB RAL DISC 7842 SWELLING 01-25-2012 WEHRMAN III MASS OR MARCY LUMP IN HEAD AND NECK 7856 ENLARGEMENT 01-25-2012 [place] OF LYMPH MEDICAL NODES IMAGING ASS 53217 DYSPHAGIA 01-25-2012 [facility] UNSPECIFIED AMBULANCE SERVICE 1122 CANDIDIASIS 01-11-2012 MIRA MARCY OF OTHER UROGENITAL SITES 94156 OTHER 01-11-2012 [facility] CANDIDIASIS [facility] OF OTHER INC SPECIFIED SITES 7912 HEMOGLOBINU 01-11-2012 [facility] SHARON AMBULANCE SERVICE 70972 NONSPECIFIC 09-11-2011 ZEKE BAR ABNORMAL ELECTROCARD IOGRAM 83638 HYPERSOMNIA 07-18-2011 [facility] WITH SLEEP ERNST APNEA UNSPECIFIED 52030 ABDOMINAL 07-04-2011 [facility] PAIN, AMBULANCE PERIUMBILIC SERVICE 6010 ACUTE 07-03-2011 [facility] ARMANDO PROSTATITIS 6019 UNSPECIFIED 07-03-2011 [facility] PROSTATITIS INC 03934 ASTHMA, 06-14-2011 BESSON JEANIE UNSPECIFIED , UNSPECIFIED STATUS 40103 OTHER CHEST 06-14-2011 BESSON JEANIE PAIN 43621 OTHER 06-13-2011 [place] NONSPECIFIC MEDICAL ABNORMAL IMAGING ASS FINDING OF LUNG FIELD 03075 MORBID 05-31-2011 [place] MEDICAL OBESITY SERV FOUNDATIO 4778 ALLERGIC 05-31-2011 [place] MEDICAL RHINITIS SERV DUE TO FOUNDATIO OTHER ALLERGEN 27147 APNEA 05-31-2011 [facility] HOSP INC 7019 UNSPECIFIED 05-19-2011 OR[facility] PATHOLOGY HYPERTROPHI LABORATORY C&ATROPHIC CONDITION SKIN 5210 DENTAL 05-16-2011 THE IMPLANT CARIES & ORAL SURGERY C 68873 UNSPECIFIED 05-08-2011 MARIAN[facility] VISION BLEPHAROCON JUNCTIVITIS 7862 COUGH 04-26-2011 [facility] 32683 UNSPECIFIED 03-30-2011 [facility] [place] CONJUNCTIVI URGENT TIS TREAT 33922 PAIN IN 03-30-2011 [facility], HAND MOBILE DIAGNOSTIC SE 6961 OTHER 03-23-2011 [facility] [place] PSORIASIS URGENT AND SIMILAR TREATMENT A DISORDERS 67778 OBESITY, 03-12-2011 [facility] [place] UNSPECIFIED URGENT TREATMENT A 61999 INSOMNIA 03-12-2011 [facility] [place] UNSPECIFIED URGENT TREATMENT A 514 PULMONARY 03-02-2011 [facility] CONGESTION MOBILE AND DIAGNOSTIC HYPOSTASIS SE 7242 LUMBAGO 02-25-2011 [facility] [place] URGENT TREATMENT A 7245 UNSPECIFIED 02-10-2011 [facility] V771 SCREENING 02-10-2011 [facility] DIABETES OF [place] PS MELLITUS 5968 OTHER 12-28-2010 [facility] [place] SPECIFIED RADIOLOGY DISORDERS OF BLADDER 58014 DIARRHEA 12-28-2010 [facility] M [...] 0 RE 34 IN 94 17 17 IA G [address] AR AE US MA L CY S 0. 5% LL C EY E DR PS TR 45 01 10 0 85 10 ME 15 GA Ac OL 80 -1 -1 0. D 13 IN ti AM 20 4- 6- 00 CA 30 EY ve IN 35 20 20 0 RE 35 E 65 17 17 IA SA 3 PH CH LI AR AE CY MA L LA CY S TE LL 10 C % CR EA M MA 00 06 10 0 30 30 ME 15 GA Ac GN 60 -2 -1 0. D 11 IN ti ES 30 1- 4- 00 CA 55 EY ve IU 20 20 20 0 RE 26 M 92 17 17 IA OX 2 PH CH ID AR AE E MA L 40 CY S 0 MG LL C TA BL ET SM 49 10 10 0 29 1 ME 15 GA Ac 34 -0 -1 60 D 11 IN ti MA 80 6- 1- .0 CA 02 EY ve GN 69 20 20 00 RE 11 ES 64 17 17 IA IU 9 PH CH M AR AE CI MA L TR CY S AT E LL SO C BRYAN TI ON ST 00 03 10 0 30 30 ME 15 GA Ac OO 53 -1 -0 0. D 04 IN ti L 61 9- 2- 00 CA 39 EY ve SO 06 20 20 0 RE 09 FT 41 17 17 IA EN 0 PH CH ER AR AE MA L 25 CY S 0 MG LL C SO FT GE L LO 00 03 10 0 30 30 ME 15 GA Ac RA 78 -1 -0 0. D 04 IN ti TA 15 9- 2- 00 CA 39 EY ve DI 07 20 20 0 RE 10 NE 70 17 17 IA 1 PH CH 10 AR AE MA L MG CY S TA LL BL C ET BRYAN 00 03 09 0 30 7 ME 15 GA Ac BR 90 -1 -2 0. D 04 IN ti IC 46 8- 9- 00 CA 01 EY ve AT 32 20 20 0 RE 54 IN 94 17 17 IA G [address] AR AE US MA L CY S 0. 5% LL C EY E DR PS 00 03 09 0 30 30 ME 15 GA Ac PI 90 -1 -2 0. D 00 IN ti RI 46 9- 6- 00 CA 60 EY ve N 28 20 20 0 RE 67 81 88 17 17 IA 9 PH CH MG AR AE MA L CH CY S EW AB LL LE C TA BL ET MA 00 06 09 0 30 30 ME 14 GA Ac GN 60 -2 -1 0. D 94 IN ti ES 30 1- 5- 00 CA 75 EY ve IU 20 20 20 0 RE 67 M 92 17 17 IA OX 2 PH CH ID AR AE E MA L 40 CY S 0 MG LL C TA BL ET AC 00 03 09 0 35 15 ME 14 GA Ac ID 90 -0 -1 50 D 96 IN ti 47 4- 5- .0 CA 35 EY ve GO 72 20 20 00 RE 99 NE 71 17 17 IA 4 PH CH AN AR AE TA MA L CI CY S D LI LL QU C ID LO 00 03 09 0 30 30 ME 14 GA Ac RA 78 -1 -0 0. D 87 IN ti TA 15 9- 2- 00 CA 29 EY ve DI 07 20 20 0 RE 29 NE 70 17 17 IA 1 PH CH 10 AR AE MA L MG CY S TA LL BL C ET ST 00 03 09 0 30 30 ME 14 GA Ac OO 53 -1 -0 0. D 87 IN ti L 61 9- 2- 00 CA 29 EY ve SO 06 20 20 0 RE 28 FT 41 17 17 IA EN 0 PH CH ER AR AE MA L 25 CY S 0 MG LL C SO FT GE L 00 03 08 0 30 30 ME 14 GA Ac PI 90 -1 -2 0. D 83 IN ti RI 46 9- 8- 00 CA 86 EY ve N 28 20 20 0 RE 95 81 88 17 17 IA 9 PH CH MG AR AE MA L CH CY S EW AB LL LE C TA BL ET BRYAN 00 03 08 0 30 7 ME 14 GA Ac BR 90 -1 -2 0. D 82 IN ti IC 46 8- 4- 00 CA 01 EY ve AT 32 20 20 0 RE 42 IN 94 17 17 IA G [address] AR AE US MA L CY S 0. 5% LL C EY E DR JORDON BRYAN 00 03 08 0 30 7 ME 14 GA Ac BR 90 -1 -1 0. D 79 IN ti IC 46 8- 8- 00 CA 87 EY ve AT 32 20 20 0 RE 03 IN 94 17 17 IA G [address] AR AE US MA L CY S 0. 5% LL C EY E DR JORDON MA 00 06 08 0 30 30 ME 14 GA Ac GN 60 -2 -1 0. D 77 IN ti ES 30 1- 6- 00 CA 18 EY ve IU 20 20 20 0 RE 99 M 92 17 17 IA OX 2 PH CH ID AR AE E MA L 40 CY S 0 MG LL C TA BL ET ST 00 03 08 0 30 30 ME 14 GA Ac OO 53 -1 -0 0. D 70 IN ti L 61 9- 4- 00 CA 77 EY ve SO 06 20 20 0 RE 91 FT 41 17 17 IA EN 0 PH CH ER AR AE MA L 25 CY S 0 MG LL C SO FT GE L LO 00 03 08 0 30 30 ME 14 GA Ac RA 78 -1 -0 0. D 70 IN ti TA 15 9- 4- 00 CA 77 EY ve DI 07 20 20 0 RE 92 NE 70 17 17 IA 1 PH CH 10 AR AE MA L MG CY S TA LL BL C ET 00 03 07 0 30 30 ME 14 GA Ac PI 90 -1 -3 0. D 69 IN ti RI 46 9- 1- 00 CA 21 EY ve N 28 20 20 0 RE 07 81 88 17 17 IA 9 PH CH MG AR AE MA L CH CY S EW AB LL LE C TA BL ET BRYAN 00 03 07 0 30 7 ME 14 GA Ac BR 90 -1 -2 0. D 68 IN ti IC 46 8- 9- 00 CA 73 EY ve AT 32 20 20 0 RE 52 IN 94 17 17 IA G [address] AR AE US MA L CY S 0. 5% LL C EY E DR JORDON MA 00 06 07 0 30 30 ME 14 GA Ac GN 60 -2 -1 0. D 63 IN ti ES 30 1- 9- 00 CA 33 EY ve IU 20 20 20 0 RE 43 M 92 17 17 IA OX 2 PH CH ID AR AE E MA L 40 CY S 0 MG LL C TA BL ET AC 00 03 07 0 35 15 ME 14 GA Ac ID 90 -0 -1 50 D 62 IN ti 47 4- 8- .0 CA 01 EY ve GO 72 20 20 00 RE 68 NE 71 17 17 IA 4 PH CH AN AR AE TA MA L CI CY S D LI LL QU C ID BRYAN 00 03 07 0 30 7 ME 14 GA Ac BR 90 -1 -1 0. D 60 IN ti IC 46 8- 5- 00 CA 60 EY ve AT 32 20 20 0 RE 69 IN 94 17 17 IA G [address] AR AE US MA L CY S 0. 5% LL C EY E DR JORDON LO 00 03 07 0 30 30 ME 14 GA Ac RA 78 -1 -0 0. D 53 IN ti TA 15 9- 6- 00 CA 43 EY ve DI 07 20 20 0 RE 02 NE 70 17 17 IA 1 PH CH 10 AR AE MA L MG CY S TA LL BL C ET ST 00 03 07 0 30 30 ME 14 GA Ac OO 53 -1 -0 0. D 53 IN ti L 61 9- 6- 00 CA 43 EY ve SO 06 20 20 0 RE 01 FT 41 17 17 IA EN 0 PH CH ER AR AE MA L 25 CY S 0 MG LL C SO FT GE L 00 03 07 0 30 30 ME 14 GA Ac PI 90 -1 -0 0. D 50 IN ti RI 46 9- 3- 00 CA 60 EY ve N 28 20 20 0 RE 43 81 88 17 17 IA 9 PH CH MG AR AE MA L CH CY S EW AB LL LE C TA BL ET BRYAN 00 03 06 0 30 7 ME 14 GA Ac BR 90 -1 -3 0. D 50 IN ti IC 46 8- 0- 00 CA 79 EY ve AT 32 20 20 0 RE 90 IN 94 17 17 IA G [address] AR AE US MA L CY S 0. 5% LL C EY E DR RUVALCABA BRYAN 00 03 06 0 30 7 ME 14 GA Ac BR 90 -1 -1 0. D 42 IN ti IC 46 8- 7- 00 CA 66 EY ve AT 32 20 20 0 RE 58 IN 94 17 17 IA G [address] AR AE US MA L CY S 0. 5% LL C EY E DR PS AC 00 03 06 0 35 15 ME 14 GA Ac ID 90 -0 -1 50 D 41 IN ti 47 4- 6- .0 CA 27 EY ve GO 72 20 20 00 RE 46 NE 71 17 17 IA 4 PH CH AN AR AE TA MA L CI CY S D LI LL QU C ID ST 00 03 06 0 30 30 ME 14 GA Ac OO 53 -1 -0 0. D 33 IN ti L 61 9- 7- 00 CA 82 EY ve SO 06 20 20 0 RE 41 FT 41 17 17 IA EN 0 PH CH ER AR AE MA L 25 CY S 0 MG LL C SO FT GE L LO 00 03 06 0 30 30 ME 14 GA Ac RA 78 -1 -0 0. D 33 IN ti TA 15 9- 7- 00 CA 82 EY ve DI 07 20 20 0 RE 42 NE 70 17 17 IA 1 PH CH 10 AR AE MA L MG CY S TA LL BL C ET RO 00 03 06 0 47 10 ME 14 GA Ac BA 90 -1 -0 30 D 33 IN ti FE 40 9- 5- .0 CA 30 EY ve N 06 20 20 00 RE 41 10 11 17 17 IA 0 6 PH CH MG AR AE /5 MA L CY S ML LL SY C RU P 00 03 06 0 30 30 ME 14 GA Ac PI 90 -1 -0 0. D 31 IN ti RI 46 9- 3- 00 CA 43 EY ve N 28 20 20 0 RE 67 81 88 17 17 IA 9 PH CH MG AR AE MA L CH CY S EW AB LL LE C TA BL ET MA 00 03 06 0 30 5 ME 14 GA Ac PA 90 -1 -0 0. D 31 IN ti P 41 9- 2- 00 CA 57 EY ve 50 98 20 20 0 RE 45 0 86 17 17 IA MG 1 PH CH AR AE TA MA L BL CY S ET LL C MA 00 12 05 0 30 30 ME 14 GA Ac GN 60 -0 -2 0. D 24 IN ti ES 30 3- 4- 00 CA 08 EY ve IU 20 20 20 0 RE 98 M 92 16 17 IA OX 2 PH CH ID AR AE E MA L 40 CY S 0 MG LL C TA BL ET BRYAN 00 03 05 0 50 7 ME 14 GA Ac BR 90 -1 -2 0. D 23 IN ti IC 46 8- 2- 00 CA 59 EY ve AT 32 20 20 0 RE 61 IN 95 17 17 IA G [address] AR AE US MA L CY S 0. 5% LL C EY E DR PS AC 00 03 05 0 35 15 ME 14 GA Ac ID 90 -0 -1 50 D 22 IN ti 47 4- 8- .0 CA 17 EY ve GO 72 20 20 00 RE 35 NE 71 17 17 IA 4 PH CH AN AR AE TA MA L CI CY S D LI LL QU C ID ST 00 03 05 0 30 30 ME 14 GA Ac OO 53 -1 -1 0. D 17 IN ti L 61 9- 0- 00 CA 23 EY ve SO 06 20 20 0 RE 20 FT 41 17 17 IA EN 0 PH CH ER AR AE MA L 25 CY S 0 MG LL C SO FT GE L LO 00 03 05 0 30 30 ME 14 GA Ac RA 78 -1 -1 0. D 17 IN ti TA 15 9- 0- 00 CA 23 EY ve DI 07 20 20 0 RE 21 NE 70 17 17 IA 1 PH CH 10 AR AE MA L MG CY S TA LL BL C ET 00 03 05 0 30 30 ME 14 GA Ac PI 90 -1 -0 0. D 14 IN ti RI 46 9- 5- 00 CA 96 EY ve N 28 20 20 0 RE 45 81 88 17 17 IA 9 PH CH MG AR AE MA L CH CY S EW AB LL LE C TA BL ET BRYAN 00 03 05 0 30 7 ME 14 GA Ac BR 90 -1 -0 0. D 15 IN ti IC 46 8- 5- 00 CA 88 EY ve AT 32 20 20 0 RE 83 IN 94 17 17 IA G [address] AR AE US MA L CY S 0. 5% LL C EY E DR PS MA 00 12 04 0 30 30 ME 14 GA Ac GN 60 -0 -2 0. 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 URNLS DIP [address] STICK/TAB ASSOCIATE ASSOCIATE LET S S REAGENT AUTO MICROSCOP Y LIPID 76801 GABONESE GABONESE PANEL 7 HEALTH HEALTH ASSOCIATE ASSOCIATE S S ALBUMIN 04011 GABONESE GABONESE URINE [address] [place] [address] MICROALBU ASSOCIATE ASSOCIATE MIN S S QUANTIATI VE TRAVEL [address] NEC METAL ROOFER ASSOCIATE SPEC; S S PRORAT ACTL MILE TRAVEL [address] NEC METAL ROOFER ASSOCIATE SPEC; S S PRORAT ACTL MILE BLOOD 86515 GABONESE GABONESE COUNT 7 HEALTH HEALTH COMPLETE ASSOCIATE ASSOCIATE AUTO&AUTO S S DIFRNTL WBC J CARLOS V G0471 GABONESE GABONESE BLD [address] [place] [address] HEALTH RETIREMENT CONSULTANT/URN ASSOCIATE ASSOCIATE [place] CATH S S IND SNF/LAB 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 J CARLOS V G0471 [facility] [address] [place] [address] RETIREMENT CONSULTANT/URN ASSOCIATE ASSOCIATE MIREILLE CATH S S IND SNF/LAB 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 BLOOD 86232 GABONESE GABONESE COUNT [address] [place] [address] HEMOGLOBI ASSOCIATE ASSOCIATE N S S BLOOD [address] HEMATOCRI ASSOCIATE ASSOCIATE T S S TRAVEL [address] NEC METAL ROOFER ASSOCIATE SPEC; S S PRORAT ACTL MILE COLOREC G0328 LA[facility] GALLO SCR; 7 [facility] FOB TST INC INC IMMUNO 1-3 SIMULTANE OUS URNLS DIP 68045 [facility] STICK/TAB INC INC LET REAGENT AUTO MICROSCOP Y BLOOD 77006 GABONESE GABONESE COUNT HEALTH HEALTH COMPLETE ASSOCIATE ASSOCIATE AUTO&AUTO S S DIFRNTL WBC O2 CONC 1 E1390 [facility] CLINE [place] [facility] 85%/>02 E E CONC AT PRS FLW RATE J CARLOS V G0471 [place] [address] HEALTH HEALTH RETIREMENT CONSULTANT/URN ASSOCIATE ASSOCIATE MIRE[place]LE CATH S S IND SNF/LAB 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 PRTBLE E0434 MARLYN CLINE LQD O2 7 HEALTHCAR HEALTHCAR SYS RENT; E E RESRVOR HUMIDFR FLWMTR TRAVEL [address] NEC METAL ROOFER ASSOCIATE SPEC; S S PRORAT ACTL MILE TRAVEL [address] NEC METAL ROOFER ASSOCIATE SPEC; S S PRORAT ACTL MILE J CARLOS V G0471 [address] RETIREMENT CONSULTANT/URN ASSOCIATE ASSOCIATE SMFrancisco CATH S S IND SNF/LAB 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 CT THORAX 22687 LAURA SANCHEZ W/O 7 [facility] CONTRAST INC INC MATERIAL CT SOFT 64834 LAURA SANCHEZ TISSUE 7 [facility] NECK W/O INC INC CONTRAST MATERIAL BLOOD [address] COMPLETE ASSOCIATE ASSOCIATE AUTO&AUTO S S DIFRNTL WBC HEMOGLOBI [address] GLYCOSYLA ASSOCIATE ASSOCI[place] [address] [facility] THYROID [address] [place] [address] STIMULATI ASSOCIATE ASSOCIATE NG S S HORMONE TSH J CARLOS V G0471 [address] RETIREMENT CONSULTANT/URN ASSOCIATE ASSOCIATE MI[place] CATH S S IND SNF/LAB 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 TRAVEL [address] NEC METAL ROOFER ASSOCIATE SPEC; S S PRORAT ACTL MILE URNLS DIP [address] LAURA LEAL [address] [place] [address] LET RGNT P NON-AUTO W/O MICRSCP O2 CONC 1 E1390 [place] [address] HEALTHCAR HEALTHCAR 85%/>02 E E CONC AT [facility] FLW RATE O2 CONC 1 E1390 [facility] [place] [address] HEALTHCAR HEALTHCAR 85%/>02 E E CONC AT [facility] FLW RATE DEBRIDEME 06387 SPECIAL VICTORIANO [place] NT NAIL 7 CARE ANY PODIATRY METHOD OF YAMIL 6/> NONEMERGE A0130 FEDERATED FEDERATED NCY 7 TRANS TRANSPORT TRANSPORT SERVBLUEG ATION: ATION SER TOSHA KAVITHA Dobson VAN J CARLOS V G0471 [address] RETIREMENT CONSULTANT/URN ASSOCIATE ASSOCIATE SMP CATH S S IND SNF/LAB 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 LIPID 50848 GABONESE GABONESE PANEL 7 HEALTH HEALTH ASSOCIATE ASSOCIATE S S TRAVEL [address] NEC METAL ROOFER ASSOCIATE SPEC; S S PRORAT ACTL MILE RADIOLOGI 32018 [facility] EXAMINATI ON KNEE 1/2 VIEWS TRANS R0070 [facility] PRTBL 7 LLC LLC X-RAY EQP&PERS [place]/NRS RICHMOND-TRIP 1 PT RADIOLOGI 17655 [facility] EXAMINATI ON FEMUR MINIMUM 2 VIEWS SET-UP Q0092 [facility] PORTABLE 7 [facility] LLC X-RAY EQUIPMENT RADIOLOGI 30923 [facility] EXAMINATI ON TIBIA & FIBULA 2 VIEWS COMPREHEN 66604 GABONESE GABONESE SIVE 7 HEALTH HEALTH METABOLIC ASSOCIATE ASSOCIATE PANEL S S J CARLOS V G0471 [facility] [address] [place] [address] HEALTH RETIREMENT CONSULTANT/URN ASSOCIATE ASSOCIATE Francisco CATH S S IND SNF/LAB 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 7 HEALTH HEALTH COMPLETE ASSOCIATE ASSOCIATE AUTO&AUTO S S DIFRNTL WBC TRAVEL [address] NEC METAL ROOFER ASSOCIATE SPEC; S S PRORAT ACTL MILE TRANS R0070 [facility] 7 [facility] LLC X-RAY EQP&PERS [place]/NRS RICHMOND-TRIP 1 PT RADIOLOGI 66646 [facility] EXAMINATI ON CHEST SINGLE VIEW FRONTAL SET-UP Q0092 [facility] LLC X-RAY EQUIPMENT RADEX 70197 LAURA SANCHEZ WRIST 7 [facility] COMPLETE INC INC MINIMUM 3 VIEWS O2 CONC 1 E1390 MARLYN MOSES HEALTHCAR HEALTHCAR 85%/>02 E E CONC AT PRSC FLW RATE TRANS R0070 [facility] PRTBL 7 [facility] X-RAY EQP&PERS [place]/NRS R[place]-TRIP [address] [facility] 2 7 [facility] VIEWS SET-UP Q0092 [facility] PORTABLE 7 [facility] X-RAY EQUIPMENT RADEX 01834 [facility] WRIST 7 [facility] COMPLETE MINIMUM 3 VIEWS NONEMERGE A0130 FEDERATED FEDERATED NCY 7 TRANS TRANSPORT TRANSPORT SERVBLUEG ATION: ATION SER TOSHA RAMIREZ NONEMERGE A0130 FEDERATED FEDERATED NCY 7 TRANS TRANSPORT TRANSPORT SERVBLUEG ATION: ATION SER TOSHA RAMIREZ NATRIURET 03781 GABONESE GABONESE 7 HEALTH HEALTH PEPTIDE ASSOCIATE ASSOCIATE S S J CARLOS V G0471 [facility] HEALTH RETIREMENT CONSULTANT/URN ASSOCIATE ASSOCIATE MI[place] CATH S S IND SNF/LAB 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 TRAVEL 1 P9603 [place] [address] HEALTH HEALTH NEC METAL ROOFER ASSOCIATE SPEC; S S PRORAT ACTL MILE ECG 61678 [facility] ROUTINE 7 PHYSICIAN ECG S GROUP W/LEAST 12 LDS I&R ONLY ECG 76188 LAURA SANCHEZ ROUTINE 7 [facility] ECG INC INC W/LEAST 12 LDS TRCG ONLY W/O I&R NONEMERGE A0130 FEDERATED FEDERATED NCY 7 TRANS TRANSPORT TRANSPORT SERVBLUEG ATION: ATION SER TOSHA RAMIREZ CULTURE 22244 GABONESE GABONESE BACTERIAL HEALTH HEALTH ASSOCIATE ASSOCIATE QUANTTATI S S VE COLONY COUNT URINE URNLS DIP [address] HEALTH STICK/TAB ASSOCIATE ASSOCIATE LET S S REAGENT AUTO MICROSCOP Y NONEMERGE A0130 FEDERATED FEDERATED NCY 7 TRANS TRANSPORT TRANSPORT SERVBLUEG ATION: ATION SER TOSHA RAMIREZ O2 CONC 1 E1390 [facility] HEALTHCAR HEALTHCAR 85%/>02 E E CONC AT [facility] FLW RATE NONEMERGE A0130 FEDERATED FEDERATED NCY 7 TRANS TRANSPORT TRANSPORT SERVBLUEG ATION: ATION SER TOSHA RAMIREZ GAS 04078 LAURA SANCHEZ DILUT/WAS 7 [facility] HOUT LUNG INC INC VOL W/WO DISTRIB VENT&[place] [address] LAURA TRIPPON DIFFUSING 7 [facility] CAPACITY INC INC BRNCDILAT 52236 LAURA SANCHEZ RSPSE 7 [facility] SPMTRY INC INC PRE&POST- BRNCDILAT ADMN PRESSURIZ 89669 LAURA SANCHEZ ED/NONPRE 7 [facility] SSURIZED INC INC INHALATIO N TREATMENT NONEMERGE A0130 FEDERATED FEDERATED NCY 7 TRANS TRANSPORT TRANSPORT SERVBLUEG ATION: ATION SER TOSHA RAMIREZ URNLS DIP 80597 LAURA LEAL 7 [facility] LET RGNT P NON-AUTO W/O MICRSCP CULTURE 45653 LAURA TRIPPON BACTERIAL 7 [facility] INC INC QUANTTATI VE COLONY COUNT URINE CULTURE 51977 LAURA TRIPPON BCT 7 [facility] ISOL&PRSM INC INC PTV ID ISOLATE EA URINE SUSCEPTIB 77492 LAURA SANCHEZ LTY STDY 7 [facility] ANTIMICRB INC INC IAL MICRO/AGA R DILUTJ O2 CONC 1 E1390 [facility] HEALTHCAR HEALTHCAR 85%/>02 E E CONC AT [facility] FLW RATE NONEMERGE A0130 FEDERATED FEDERATED NCY 7 TRANS TRANSPORT TRANSPORT SERVBLUEG ATION: ATION SER TOSHA Dobson VAN RADEX 37399 [place] ORDONEZ SHOULDER 7 MEDICAL COMPLETE IMAGING MINIMUM 2 ASS VIEWS DIAB ONLY A5500 [facility] FIT CSTM 7 MEDICAL MEDICAL PREP&SPL SUPPLY SUPPLY SHOE MX LLC LLC DNSITY INSRT FOR DIAB A5512 [place] [place] ONLY MX 7 MEDICAL MEDICAL DNSITY SUPPLY SUPPLY INSRT DIR LLC LLC FORMD PRFAB EA URNLS DIP 80575 LAURA SANCHEZ 7 [facility] STICK/TAB INC INC LET REAGENT AUTO MICROSCOP Y DEBRIDEME 18134 SPECIAL VICTORIANO JR. NT NAIL 7 CARE ANY PODIATRY METHOD OF YAMIL 6/> NONEMERGE A0130 FEDERATED FEDERATED NCY 7 TRANS TRANSPORT TRANSPORT SERVBLUEG ATION: ATION SER TOSHA WHEELHOMAI R VAN SET-UP Q0092 [facility] X-RAY EQUIPMENT RADEX 46524 [facility] SHOULDER 7 LLC LLC COMPLETE MINIMUM 2 VIEWS TRANS R0070 [facility] PRTBL 7 LLC LLC X-RAY EQP&PERS [place]/NRS RICHMOND-TRIP 1 PT TRANS R0070 [facility] PRTBL 7 [facility] LLC X-RAY EQP&PERS [place]/NRS RICHMOND-TRIP 1 PT RADIOLOGI 21009 [facility] C [facility] EXAMINATI ON CHEST SINGLE VIEW FRONTAL SET-UP Q0092 [facility] LLC X-RAY EQUIPMENT SET-UP Q0092 [facility] LLC X-RAY EQUIPMENT RADIOLOGI 32180 [facility] C 7 [facility] LLC EXAMINATI ON CHEST SINGLE VIEW FRONTAL TRANS R0075 [facility] PRTBL 7 LLC LLC XRAY EQP&PERS [place]/NRS RICHMOND-TRIP> 1 PT O2 CONC 1 E1390 [facility] HEALTHCAR HEALTHCAR 85%/>02 E E CONC AT [facility] FLW RATE BASIC 00869 GABONESE GABONESE METABOLIC 7 HEALTH HEALTH PANEL ASSOCIATE ASSOCIATE CALCIUM S S TOTAL BLOOD 12627 GABONESE GABONESE COUNT 7 HEALTH HEALTH COMPLETE ASSOCIATE ASSOCIATE AUTO&AUTO S S DIFRNTL WBC J CARLOS V G0471 GABONESE GABONESE BLD 7 HEALTH HEALTH RETIREMENT CONSULTANT/URN ASSOCIATE ASSOCIATE SMP CATH S S IND SNF/LAB 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 TRAVEL 1 P9603 GABONESE GABONESE [facility] 7 HEALTH HEALTH NEC METAL ROOFER ASSOCIATE SPEC; S S PRORAT ACTL MILE ECG 61715 [facility] MEREDITH ROUTINE 7 PHYSICIAN ECG S GROUP W/LEAST 12 LDS I&R ONLY ECG 18374 LAURA SANCHEZ ROUTINE 7 [facility] ECG INC INC W/LEAST 12 LDS TRCG ONLY W/O I&R NONEMERGE A0130 FEDERATED FEDERATED NCY 7 TRANS TRANSPORT TRANSPORT SERVBLUEG ATION: ATION SER TOSHA Dobson VAN O2 CONC 1 E1390 [facility] 7 HEALTHCAR HEALTHCAR 85%/>02 E E CONC AT [facility] FLW RATE GROUND A0425 [facility] MILEAGE 7 AMBULANCE AMBULANCE PER SERVICE SERVICE STATUTE MILE AMBULANCE A0428 [facility] SERVICE 7 AMBULANCE AMBULANCE BLS SERVICE SERVICE NONEMERGE NC TRANSPORT GROUND A0425 [facility] MILEAGE 7 AMBULANCE AMBULANCE PER SERVICE SERVICE STATUTE MILE ECG 27775 KEVIN PATRICK ROUTINE 7 PHYSICIAN ECG S, PLLC W/LEAST 12 LDS I&R ONLY AMB A0427 [facility] 7 AMBULANCE AMBULANCE ALS SERVICE SERVICE EMERGENCY TRANSPORT LEVEL 1 RADIOLOGI 79261 [facility] 7 MEDICAL EXAMINATI IMAGING ON CHEST ASS SINGLE VIEW FRONTAL NONEMERGE A0130 FEDERATED FEDERATED NCY 7 TRANS TRANSPORT TRANSPORT SERVBLUEG ATION: ATION SER TOSHA RAMIREZ VISUAL 75988 [facility] 7 MEDICAL UNI/BI SERV W/INTERP FOUNDATIO EXTENDED N EXAM HOSPITAL G0463 [facility] 7 HEALTHCAR HEALTHCAR T CLIN E E VISIT [facility] ASSESS & MGMT PT ECG 12162 [facility] ROUTINE 7 HEALTHCAR HEALTHCAR ECG E E W/LEAST [facility] 12 LDS TRCG ONLY W/O I&R DEBRIDEME 69604 SPECIAL SKRIP JR. NT NAIL 7 CARE ANY PODIATRY METHOD OF YAMIL 6/> O2 CONC 1 E1390 [facility] 7 HEALTHCAR HEALTHCAR 85%/>02 E E CONC AT [facility] FLW RATE O2 CONC 1 E1390 MARTINAbhijit DODGEROSALIAAbhijit [facility] 6 HEALTHCAR HEALTHCAR 85%/>02 E E CONC AT PRSC FLW RATE POLYSOM 50421 LAURA TRIPPON 6/>YRS 6 [facility] SLEEP INC INC W/CPAP 4/> ADDL KATARINA ATTND NONEMERG A0120 FEDERATED FEDERATED TRNSPRT: 6 MINI-BUS TRANSPORT TRANSPORT MTN ATION SER ATION SER AREA/OTH SYS O2 CONC 1 E1390 MARTINAbhijit MARTINAbhijit [facility] 6 HEALTHCAR HEALTHCAR 85%/>02 E E CONC AT PRSC FLW RATE BASIC 22413 GABONESE GABONESE METABOLIC 6 HEALTH HEALTH PANEL ASSOCIATE ASSOCIATE CALCIUM S S TOTAL J CARLOS V G0471 GABONESE GABONESE BLD 6 HEALTH HEALTH RETIREMENT CONSULTANT/URN ASSOCIATE ASSOCIATE SMP CATH S S IND SNF/LAB 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 NT NAIL 6 CARE SELVIN ANY PODIATRY METHOD OF YAMIL 6/> O2 CONC 1 E1390 MARLYN CLINE [facility] 6 HEALTHCAR HEALTHCAR 85%/>02 E E CONC AT PRSC FLW RATE ECG 57856 [facility] MEREDITH ROUTINE 6 PHYSICIAN MAT ECG S GROUP W/LEAST 12 LDS I&R ONLY ECG 87028 LAURA SANCHEZ ROUTINE 6 [facility] ECG INC INC W/LEAST 12 LDS TRCG ONLY W/O I&R ECG 48762 LAURA ZARCO JR ROUTINE 6 [facility] W/LEAST P 12 LDS I&R ONLY RADIOLOGI 93895 [place] ALEISHA C EXAM 6 MEDICAL KIERAN CHEST 2 IMAGING VIEWS ASS FRONTAL&L ATERAL O2 CONC 1 E1390 MARLYN CLINE [facility] 6 HEALTHCAR HEALTHCAR 85%/>02 E E CONC AT PRSC FLW RATE RADEX 23574 [facility] ALL SPINE 6 MEDICAL CERVICAL IMAGING 2 OR 3 ASS VIEWS RADEX 08691 [facility] ALL SPINE 6 MEDICAL THORACIC IMAGING 2 VIEWS ASS RADEX 74979 NICKI ORDONEZ ALL SPINE 6 MEDICAL LUMBOSACR IMAGING AL 2/3 ASS VIEWS ECG 54904 [facility] ROUTINE 6 PHYSICIAN MAT ECG S GROUP W/LEAST 12 LDS I&R ONLY NONEMERG A0120 FEDERATED FEDERATED TRNSPRT: 6 MINI-BUS TRANSPORT TRANSPORT MTN ATION SER ATION SER AREA/OTH SYS NONEMERG A0120 FEDERATED FEDERATED TRNSPRT: 6 MINI-BUS TRANSPORT TRANSPORT MTN ATION SER ATION SER AREA/OT SYS ECG 34708 [facility] ROUTINE 6 PHYSICIAN MAT ECG S GROUP W/LEAST 12 LDS I&R ONLY ECG 33464 LAURA HOLCOMB ROUTINE 6 [facility] W/LEAST P 12 LDS I&R ONLY NONEMERG A0120 FEDERATED FEDERATED TRNSPRT: 6 MINI-BUS TRANSPORT TRANSPORT MTN ATION SER ATION SER AREA/OT SYS PC C9600 MEADOWVIE MEADOWVIE TRNSCTH 6 W W PLCMT RX [facility] [place] [facility] MEDICAL MEDICAL STENTS; 1 CHRISTINE CA/BR PRQ 25905 [facility] TRLUML 6 PHYSICIAN MAT CORONARY S GROUP STENT W/ANGIO ONE ART/BRNCH ECG 37611 LAURA HOLCOMB ROUTINE 6 [facility] W/LEAST P 12 LDS I&R ONLY NONEMERG A0120 FEDERATED FEDERATED TRNSPRT: 6 MINI-BUS TRANSPORT TRANSPORT MTN ATION SER ATION SER AREA/OT SYS RADEX 26542 LAURA SANCHEZ WRIST 6 [facility] COMPLETE INC INC MINIMUM 3 VIEWS RADIOLOGI 13291 NICKI ORDONEZ ALL C 6 MEDICAL EXAMINATI IMAGING ON CHEST ASS SINGLE VIEW FRONTAL NONEMERG A0120 FEDERATED FEDERATED TRNSPRT: 6 MINI-BUS TRANSPORT TRANSPORT MTN ATION SER ATION SER AREA/OT SYS NONEMERG A0120 FEDERATED FEDERATED TRNSPRT: 6 MINI-BUS TRANSPORT TRANSPORT MTN ATION SER ATION SER AREA/OT SYS RADIOLOGI 08360 [place] ORDONEZ ALL C 6 MEDICAL EXAMINATI IMAGING ON CHEST ASS SINGLE VIEW FRONTAL NONEMERG A0120 FEDERATED FEDERATED TRNSPRT: 6 MINI-BUS TRANSPORT TRANSPORT MTN [facility] NONEMERG A0120 FEDERATED FEDERATED TRNSPRT: 6 MINI-BUS TRANSPORT TRANSPORT MTN [facility]OT SYS NONEMERG A0120 FEDERATED FEDERATED TRNSPRT: 6 MINI-BUS TRANSPORT TRANSPORT MTN [facility]OT SYS NONEMERG A0120 FEDERATED FEDERATED TRNSPRT: 6 MINI-BUS TRANSPORT TRANSPORT MTN [facility] [address] [facility] MEREDITH DISCHARGE 6 PHYSICIAN MAT DAY S GROUP MANAGEMEN T 30 MIN/< PC C9600 MEAWFRANCES MEAWFRANCES TRNSCTH 6 W W PLCMT RX [facility] [place] [facility] STENTS; 1 [place]Q [address] [facility] TRLUML 6 PHYSICIAN MAT CORONARY S GROUP STENT W/ANGIO ONE ART/BRNCH NONEMERG A0120 FEDERATED FEDERATED TRNSPRT: 6 MINI-BUS TRANSPORT TRANSPORT [facility]OT S[facility] NONEMERG A0120 FEDERATED FEDERATED TRNSPRT: 6 MINI-BUS TRANSPORT TRANSPORT [facility]OT SYS ECHO 25384 LAURA SANCHEZ TTHRC R-T 6 [facility] 2D INC INC W/WOM-MOD E COMPL SPEC&COLR D NONEMERG A0120 FEDERATED FEDERATED TRNSPRT: 6 MINI-BUS TRANSPORT TRANSPORT [facility]OT S[facility] ECG 06176 LAURA HOLCOMB ROUTINE 6 [facility] W/LEAST P 12 LDS I&[place] [address] [place] ALEISHA HEAD/BRAI 6 MEDICAL KIERAN N W/O IMAGING CONTRAST ASS MATERIAL RADEX 23845 [place] [facility] 6 MEDICAL GILMA THORACIC IMAGING 2 VIEWS ASS RADEX 24110 [place] [facility] 6 MEDICAL GILMA LUMBOSACR IMAGING AL 2/[address] [place] [address] [place] [facility] CERV[facility] 6 MEDICAL GILMA SPINE W/O IMAGING CONTRAST ASS MATERIAL RADIOLOGI 06185 [place] ALEISHA C 6 MEDICAL KIERAN EXAMINATI IMAGING ON CHEST ASS SINGLE VIEW FRONTAL NONEMERG A0120 FEDERATED FEDERATED TRNSPRT: 6 MINI-BUS TRANSPORT TRANSPORT [facility] NONEMERG A0120 FEDERATED FEDERATED TRNSPRT: 6 MINI-BUS TRANSPORT TRANSPORT MT[facility] RADIOLOGI 55154 [place] ORDONEZ ALL C 6 MEDICAL EXAMINATI IMAGING ON CHEST ASS SINGLE VIEW FRONTAL NONEMERG A0120 FEDERATED FEDERATED TRNSPRT: 6 MINI-BUS TRANSPORT TRANSPORT [facility] ECG 43697 CARDIOVAS MEREDITH ROUTINE 6 CULAR MAT ECG CONSULTAN W/LEAST TS O 12 LDS I&R ONLY RADIOLOGI 02034 [place] ORDONEZ ALL C 6 MEDICAL EXAMINATI IMAGING ON CHEST ASS SINGLE VIEW FRONTAL NONEMERG A0120 FEDERATED FEDERATED TRNSPRT: 6 MINI-[facility] NONEMERG A0120 FEDERATED FEDERATED TRNSPRT: 5 MINI-BUS TRANSPORT TRANSPORT [facility] [address] [facility] 5 JEANIE JEANIE DAY MANAGEMEN T 30 MIN/< SBSQ 50784 [facility] 5 JEANIE JEANIE CARE/DAY 25 MINUTES SBSQ 66792 [facility] 5 JEANIE JEANIE CARE/DAY 25 MINUTES SBSQ 50483 [facility] 5 JEANIE JEANIE CARE/DAY 25 MINUTES SBSQ 14826 [facility] 5 JEANIE JEANIE CARE/DAY 25 MINUTES SBSQ 56758 [facility] 5 JEANIE JEANIE CARE/DAY 25 MINUTES SBSQ 73178 [facility] 5 JEANIE JEANIE CARE/DAY [address] THORAX [address] [facility] 5 MEDICAL GILMA W/CONTRAS IMAGING T ASS MATERIAL RADIOLOGI 29771 [facility] 5 MEDICAL GILMA EXAMINATI IMAGING ON CHEST ASS SINGLE VIEW FRONTAL INITIAL 17808 [facility] 5 JEANIE JEANIE CARE/DAY 50 MINUTES RADEX 34858 [facility] ALL FINGR 5 MEDICAL MINIMUM 2 IMAGING VIEWS ASS URNLS DIP 98862 LAURA SANCHEZ 5 [facility] STICK/TAB INC INC LET REAGENT AUTO MICROSCOP Y NONEMERG A0120 FEDERATED FEDERATED TRNSPRT: 5 MINI-BUS TRANSPORT TRANSPORT MTN ATION SER ATION SER AREA/OTH SYS NONEMERG A0120 FEDERATED FEDERATED TRNSPRT: 5 MINI-BUS TRANSPORT TRANSPORT MTN ATION SER ATION SER AREA/OTH SYS ECG 86644 CARDIOVAS MEREDITH ROUTINE 5 CULAR MAT ECG CONSULTAN W/LEAST TS O 12 LDS I&R ONLY ECG 81501 LAURA SANCHZE ROUTINE 5 [facility] ECG INC INC W/LEAST 12 LDS TRCG ONLY W/O I&R NONEMERG A0120 FEDERATED FEDERATED TRNSPRT: 5 MINI-BUS TRANSPORT TRANSPORT MTN ATION SER ATION SER AREA/OTH SYS NONEMERG A0120 FEDERATED FEDERATED TRNSPRT: 5 MINI-BUS TRANSPORT TRANSPORT MTN ATION SER ATION SER AREA/OTH SYS CONTINUOU E0601 [facility] ABLECARE S 5 POSITIVE AIRWAY PRESSURE DEVICE R & L HRT 86431 CARDIOVAS MEREDITH CATH 5 CULAR MAT WINJX HRT CONSULTAN ART& L TS O VENTR IMG NONEMERG A0120 FEDERATED FEDERATED TRNSPRT: 5 MINI-BUS TRANSPORT TRANSPORT MTN ATION SER ATION SER AREA/[place] [address] [place]ISHA ABDOMEN & 5 MEDICAL KIERAN PELVIS IMAGING W/O ASS CONTRAST MATERIAL RADIOLOGI 23276 [place] ALEISHA C 5 MEDICAL KIERAN EXAMINATI IMAGING ON CHEST ASS SINGLE VIEW FRONTAL RADIOLOGI 38054 [place] ALESIHA C 5 MEDICAL KIERAN EXAMINATI IMAGING [place] [address] [place] THORACIC 5 MEDICAL [place]IER[place] SPINE W/[place] [address] [place] CERVICAL 5 MEDICAL KIERAN SPINE W/O IMAGING CONTRAST ASS MATERIAL RADIOLOGI 45455 [place] C 5 MEDICAL KIERAN EXAMINATI IMAGING ON PELVIS ASS 1/2 VIEWS NONEMERG A0120 FEDERATED FEDERATED TRNSPRT: 5 MINI-BUS TRANSPORT TRANSPORT MTN ATION SER ATION SER AREA/OTH SYS RADIOLOGI 37742 [place] BEINE C EXAM 5 MEDICAL GILMA CHEST 2 IMAGING VIEWS ASS FRONTAL&L ATERAL NONEMERG A0120 FEDERATED FEDERATED TRNSPRT: 5 MINI-BUS TRANSPORT TRANSPORT MTN ATION SER ATION SER AREA/OTH SYS ECHO 24029 LAURA SANCHEZ TTHRC R-T 5 [facility] [address] [place] [address] W/WOM-MOD E COMPL SPEC&COLR D NONEMERG A0120 FEDERATED FEDERATED TRNSPRT: 5 MINI-BUS TRANSPORT TRANSPORT MTN ATION SER ATION SER AREA/OTH SYS CONTINUOU E0601 [facility]LE[facility]ARE ABLECARE S 5 POSITIVE AIRWAY PRESSURE DEVICE WALKER E0143 [facility]ARE FOLDING 5 WHEELED ADJUSTABL E/FIXED HEIGHT NONEMERG A0120 FEDERATED FEDERATED TRNSPRT: 5 MINI-BUS TRANSPORT TRANSPORT MTN ATION SER ATION SER AREA/OTH SYS RADEX 92020 [facility] MORAES RIBS UNI 5 MEDICAL KIERAN W/POSTERO [...] MTN ATION [place] AREA/[place] [address] [place] [facility] & 4 MEDICAL GILMA PELVIS IMAGING W/CONTRAS ASS T MATERIAL NONEMERG A0120 FEDERATED FEDERATED TRNSPRT: 4 TRANS MINI-BUS TRANSPORT SERVBLUEG MTN ATION SER TOSHA AREA/OTH SYS NONEMERG A0120 FEDERATED FEDERATED TRNSPRT: 4 TRANS MINI-BUS TRANSPORT SERVBLUEG MTN ATION SER TOSHA AREA/OTH SYS XTRNL 96895 [place] ONDINA OCULAR 4 MEDICAL SHA PHOTOG SERV W/I&R FOUNDATIO DOCMT N MEDICAL PROGRE O2 CONC 1 E1390 ARON SHARP [place] PORT 4 HOME HOME 85%/>02 MEDICAL MEDICAL CONC AT EQUIPME EQUIPME PRSC FLW RATE NONEMERG A0120 FEDERATED FEDERATED TRNSPRT: 4 TRANS MINI-BUS TRANSPORT SERVBLUEG MTN ATION SER TOSHA AREA/OTH SYS SPMTRY 64068 LAURA SANCHEZ W/VC 4 [facility] EXPIRATOR INC INC Y MARYLOU W/WO MXML VOL VNTJ O2 CONC 1 E1390 ARON NKIGHTRELL DEL PORT 4 HOME HOME 85%/>02 MEDICAL MEDICAL CONC AT EQUIPME EQUIPME PRSC FLW RATE NONEMERG A0120 FEDERATED FEDERATED TRNSPRT: 4 TRANS MINI-BUS TRANSPORT SERVBLUEG MTN ATION SER TOSHA AREA/OTH SYS O2 CONC 1 E1390 [facility] PORT 4 HOME HOME 85%/>02 MEDICAL MEDICAL CONC AT EQUIPME EQUIPME PRSC FLW RATE NONEMERG A0120 FEDERATED FEDERATED TRNSPRT: 4 TRANS MINI-BUS TRANSPORT SERVBLUEG MTN ATION SER TOSHA AREA/OTH SYS NONEMERG A0120 FEDERATED FEDERATED TRNSPRT: 4 TRANS MINI-BUS TRANSPORT SERVBLUEG MTN ATION SER TOSHA AREA/OTH SYS O2 CONC 1 E1390 [facility] 4 HOME HOME 85%/>02 MEDICAL MEDICAL CONC AT EQUIPME EQUIPME PRSC FLW RATE SAVAGE 17222 LAURA MATHIS JR POST-VOID 4 [facility] RESIDUAL P URINE&/BL ADDER CAP NONEMERG A0120 FEDERATED FEDERATED TRNSPRT: 4 TRANS MINI-BUS TRANSPORT SERVBLUEG MTN ATION SER TOSHA AREA/OTH SYS NONEMERG A0120 FEDERATED FEDERATED TRNSPRT: 4 TRANS MINI-BUS TRANSPORT SERVBLUEG MTN ATION SER TOSHA AREA/OTH SYS NONEMERG A0120 FEDERATED FEDERATED TRNSPRT: 4 MINI-BUS TRANSPORT TRANSPORT MTN ATION SER ATION SER AREA/OTH SYS O2 CONC 1 E1390 [facility] 4 HOME HOME 85%/>02 MEDICAL MEDICAL CONC AT EQUIPME EQUIPME PRSC FLW RATE NONEMERG A0120 FEDERATED FEDERATED TRNSPRT: 4 MINI-BUS TRANSPORT TRANSPORT MTN ATION SER ATION SER AREA/OTH SYS NONEMERG A0120 FEDERATED FEDERATED TRNSPRT: 4 MINI-BUS TRANSPORT TRANSPORT MTN ATION SER ATION SER AREA/OTH SYS SAVAGE 59410 LAURA MATHIS JR POST-VOID 4 [facility] RESIDUAL P URINE&/BL ADDER CAP O2 CONC 1 E1390 ARON ARON [place] 4 HOME HOME 85%/>02 MEDICAL MEDICAL CONC AT EQUIPME EQUIPME PRS FLW RATE NONEMERG A0120 FEDERATED FEDERATED TRNSPRT: 4 MINI-BUS TRANSPORT TRANSPORT MTN ATION SER ATION SER AREA/OTH SYS NONEMERG A0120 FEDERATED FEDERATED TRNSPRT: 4 MINI-BUS TRANSPORT TRANSPORT MTN ATION SER ATION SER AREA/OTH SYS SAVAGE 39264 LAURA MATHIS JR POST-VOID 4 [facility] RESIDUAL P URINE&/BL ADDER CAP O2 CONC 1 E1390 [facility] 4 HOME HOME 85%/>02 MEDICAL MEDICAL CONC AT EQUIPME EQUIPME PRS FLW RATE NONEMERG A0120 FEDERATED FEDERATED TRNSPRT: 4 MINI-BUS TRANSPORT TRANSPORT MTN ATION SER ATION SER AREA/OTH SYS NONEMERG A0120 FEDERATED FEDERATED TRNSPRT: 4 MINI-BUS TRANSPORT TRANSPORT MTN ATION SER ATION SER AREA/OTH SYS 3D 72167 [place] RENDERING 4 MEDICAL KIER[facility] IMAGING W/INTERP& [place] [address] LAURA SANCHEZ MAXILLOFA 4 [facility] CIAL W/O INC INC CONTRAST MATERIAL NONEMERG A0120 FEDERATED FEDERATED TRNSPRT: 4 MINI-BUS TRANSPORT TRANSPORT MTN ATION SER ATION SER AREA/OTH SYS O2 CONC 1 E1390 ARON SHARP [facility] 4 HOME HOME 85%/>02 MEDICAL MEDICAL CONC AT EQUIPME EQUIPME [facility] FLW RATE NONEMERG A0120 FEDERATED FEDERATED TRNSPRT: 4 MINI-BUS TRANSPORT TRANSPORT MTN ATION SER ATION SER AREA/OTH SYS NONEMERG A0120 FEDERATED FEDERATED TRNSPRT: 4 MINI-BUS TRANSPORT TRANSPORT MTN ATION SER ATION SER AREA/OTH SYS RADIOLOGI 08899 LAURA SANCHEZ C EXAM 4 [facility] KNEE INC INC COMPLETE 4/MORE VIEWS RADEX 01624 LAURA SANCHEZ WRIST 4 [facility] COMPLETE INC INC MINIMUM 3 VIEWS O2 CONC 1 E1390 [facility] PORT 3 HOME HOME 85%/>02 MEDICAL MEDICAL CONC AT EQUIPME [facility] FLW RATE NONEMERG A0120 FEDERATED FEDERATED TRNSPRT: 3 MINI-BUS TRANSPORT TRANSPORT MTN ATION SER ATION SER AREA/OTH SYS NONEMERG A0120 FEDERATED FEDERATED TRNSPRT: 3 MINI-BUS TRANSPORT TRANSPORT MTN ATION SER ATION SER AREA/OTH SYS NONEMERG A0120 FEDERATED FEDERATED TRNSPRT: 3 MINI-BUS TRANSPORT TRANSPORT MTN ATION SER ATION SER AREA/OTH SYS O2 CONC 1 E1390 [facility] 3 HOME HOME 85%/>02 MEDICAL MEDICAL CONC [place] [facility] [address] LAURA SANCHEZ INFUSION 3 [facility] THERAPY INC INC PROPHYLAX IS/DX EA HOUR NEUROPLAS 59671 LAURA SANCHEZ TY 3 [facility] &/TRANSPO INC [place] [address] LAURA SANCHEZ INFUSION 3 [facility] THERAPY/P INC INC ROPHYLAXI S /DX 1ST TO 1 HR THERAPEUT 90561 LAURA SANCHEZ IC 3 [facility] INJECTION INC INC IV PUSH EACH NEW DRUG PRESSURIZ 71423 LAURA SANCHEZ ED/NONPRE 3 [facility] MEM [...] SER AREA/OTH SYS O2 CONC 1 E1390 [facility] PORT 3 HOME HOME 85%/>02 MEDICAL MEDICAL CONC AT EQUIPME EQUIPME [facility] [place] [address] LAURA SANCHEZ INFUSION 3 [facility] THERAPY INC INC PROPHYLAX IS/DX EA HOUR NEUROPLAS 93481 LAURA SANCHEZ TY 3 [facility] &/TRANSPO INC INC S MEDIAN NRV CARPAL TUNNE THERAPEUT 94122 LAURA SANCHEZ IC 3 [facility] INJECTION INC [place] [address] LAURA SANCHEZ INFUSION 3 [facility] THERAPY/P INC INC ROPHYLAXI S /DX 1ST TO 1 HR ECG 65737 LAURA SANCHEZ ROUTINE 3 [facility] ECG INC INC W/LEAST 12 LDS TRCG ONLY W/O I&R ECG 93905 LAURA AICHA ROUTINE 3 [facility] W/LEAST P 12 LDS I&R ONLY BASIC 16593 LAURA SANCHEZ METABOLIC 3 [facility] PANEL INC INC CALCIUM TOTAL BLOOD 35944 LAURA SANCHEZ COUNT 3 [facility] COMPLETE INC INC AUTO&AUTO DIFRNTL WBC COLLECTIO 23547 LAURA SANCHEZ N VENOUS 3 [facility] BLOOD INC INC VENIPUNCT URE RADIOLOGI 07146 [place] C EXAM 3 MEDICAL [facility]IERAN CHEST 2 IMAGING VIEWS ASS FRONTAL&L ATERAL NONEMERG A0120 LKLP CAC LKLP CAC TRNSPRT: 3 INC INC MINI-BUS REGION 11 REGION 11 NVN AREA/OTH SYS DETERMINA 53303 ELENI MERCADO 3 JAM JAM REFRACTIV E STATE NONEMERG A0120 LKLP CAC LKLP CAC TRNSPRT: 3 INC INC MINI-BUS REGION 11 REGION 11 MTN AREA/OTH SYS OPHTHALMO 42431 ELENI KNOWLES SCPY 3 JAM JAM EXTENDED RETINAL DRAWING I&R 1ST NONEMERG A0120 LKLP CAC LKLP CAC TRNSPRT: 3 INC INC MINI-BUS REGION 11 REGION 11 MTN AREA/OTH SYS O2 CONC 1 E1390 [facility]ON SHARP [place] 3 HOME HOME 85%/>02 MEDICAL MEDICAL CONC AT [facility] FLW RATE NERVE 77339 QUAKER VINH CONDUCTIO 3 [facility] 13/> [place] [facility] NONEMERG A0120 LK CAC [facility] CAC TRNSPRT: 3 INC INC MINI-BUS REGION 11 REGION 11 MTN AREA/OTH SYS NEEDLE 19757 QUAKER VINH EMG EA 3 [facility] W/PARASPI [place] NL AREA COMPLETE TRIMMING 68405 BRAUDIS BRAUDIS NONDYSTRO 3 JAM JAM PHIC NAILS ANY NUMBER O2 CONC 1 E1390 ARON ARON [place] 3 HOME HOME 85%/>02 MEDICAL MEDICAL CONC AT EQUIPME [facility] [place] [facility] 68601 LAURA SANCHEZ SPINAL 3 [facility] CANAL INC INC CERVICAL [place] [address] CHIPPS SUAD ARMANDO SURG 3 SUNITHA & PATHOLOGY MEERAILISILVIA GROSS&ARMANDO ROSCOPIC EXAM GLUC BLD 20623 LAURA SANCHEZ GLUC MNTR 3 [facility] DEV INC [place] [address] LAURA SANCHEZ INFUSION 3 [facility] THERAPY INC INC PROPHYLAX IS/DX EA HOUR EGD 79785 LAURA SANCHEZ TRANSORAL 3 [facility] BIOPSY INC INC SINGLE/MU LTIPLE NONEMERG A0120 LK CAC LK CAC TRNSPRT: 3 INC INC [facility] REGION 11 REGION 11 MTN AREA/OTH SYS SPCL STN 56566 CHIPPS SUAD ARMANDO 2 I&R 3 SUNITHA & EXCPT MAGDALENA MICROORG/ ENZYME/IM CYT EXCISION 94409 CROWN KIERRA THO NAIL 3 FO[facility] REMOVAL NONEMERG A[address] [facility]: 3 [facility] MINI-BUS ACTION ACTION MTN AREA/OTH SYS O2 CONC 1 E1390 ARON ARON [place] 3 HOME HOME 85%/>02 MEDICAL MEDICAL CONC AT EQUIPME EQUIPME [facility] [place] [address] LAURA SANCHEZ TROPONIN 3 [facility] QUANTITAT INC INC ANGY BLOOD 30812 LAURA SANCHEZ COUNT 3 [facility] COMPLETE INC INC AUTO&AUTO DIFRNTL WBC CREATINE 10822 LAURA LAURA KINASE MB 3 [facility] FRACTION INC INC ONLY RADIOLOGI 24769 LAURA LAURA C EXAM 3 [facility] CHEST 2 INC INC VIEWS FRONTAL&L ATERAL COMPREHEN 77710 LAURA SANCHEZ SIVE 3 [facility] METABOLIC INC INC PANEL CREATINE 60277 LAURA LAURA KINASE 3 [facility] TOTAL INC INC GROUND A0425 [facility] 3 AMBULANCE AMBULANCE PER SERVICE SERVICE STATUTE MILE ECG 70489 LAURA ZARCO JR ROUTINE 3 [facility] W/LEAST P 12 LDS I&R ONLY ECG 24118 LAURA SANCHEZ ROUTINE 3 [facility]P ECG INC INC W/LEAST 12 LDS TRCG ONLY W/O I&R AMB A0427 [facility] SERVICE 3 AMBULANCE AMBULANCE ALS SERVICE SERVICE EMERGENCY TRANSPORT LEVEL 1 NONCOVERE A9270 [facility] ITEM OR 3 HOSPITAL HOSPITAL SERVICE O2 CONC 1 E1390 [facility] 3 HOME HOME 85%/>02 MEDICAL MEDICAL CONC AT EQUIPME EQUIPME [facility] FLW RATE TRIMMING 78943 BRAUDIS BRAUDIS NONDYSTRO 3 JAM JAM PHIC NAILS ANY NUMBER DEBRIDEME 80166 BRAUDIS BRAUDIS NT NAIL 3 JAM JAM ANY METHOD 1-5 O2 CONC [address] [facility] [facility] 3 HOME HOME 85%/>02 MEDICAL MEDICAL CONC AT EQUIPME EQUIPME [facility] FLW RATE PROSTATE G0103 COMBINED COMBINED CANCER 3 PHYSICIAN PHYSICIAN SCREENING S LA S LA ; PSA TEST URNLS DIP 85279 COMBINED COMBINED 3 PHYSICIAN PHYSICIAN STICK/TAB S LA S LA LET REAGENT AUTO MICROSCOP Y RADEX 64942 [facility] SHOULDER 3 MOBILE MOBILE COMPLETE DIAGNOSTI DIAGNOSTI MINIMUM 2 C SE C SE VIEWS RADEX 73150 [facility] HUMERUS 3 MOBILE MOBILE MINIMUM 2 DIAGNOSTI DIAGNOSTI VIEWS C SE C SE RADEX 33056 EXPRESS EXPRESS ELBOW 3 MOBILE MOBILE COMPLETE DIAGNOSTI DIAGNOSTI MINIMUM 3 C SE C SE VIEWS O2 CONC 1 E1390 ARON SHARP [place] 3 HOME HOME 85%/>02 MEDICAL MEDICAL CONC AT EQUIPME EQUIPME PRSC FLW RATE O2 CONC 1 E1390 ARON SHARP [place] PORT 3 HOME HOME 85%/>02 MEDICAL MEDICAL CONC AT EQUIPME EQUIPME PRSC FLW RATE DEBRIDEME 11374 RAMÍREZ BUSHS NT NAIL 3 JAM JAM ANY METHOD 1-5 TRIMMING 65015 ELEAZARS MINDYUDIS NONDYSTRO 3 JAM JAM PHIC NAILS ANY NUMBER PARING/CU 76838 RAMÍREZ BUSHS TTING 3 JAM JAM BENIGN HYPERKERA TOTIC LESION >4 O2 CONC 1 E1390 ARON SHARP [place] PORT 3 HOME HOME 85%/>02 MEDICAL MEDICAL CONC AT EQUIPME EQUIPME PRSC FLW RATE NONEMERG A0120 LKLP LKLP TRNSPRT: 3 [facility] COMMUNITY [employer]-BUS ACTION ACTION MTN AREA/[place] [address] LAURA LAURA INFUSION 3 [facility] THERAPY/P INC INC ROPHYLAXI S /DX 1ST TO 1 HR COLONOSCO 10772 C ANTONETTE GEORGE PY FLX DX 3 DORIS HILLMAN W/PERRY [place] [address] LAURA LAURA INFUSION 3 [facility] THERAPY INC INC PROPHYLAX IS/DX EA HOUR O2 CONC 1 E1390 [facility]ON SHARP [place] 2 HOME HOME 85%/>02 MEDICAL MEDICAL CONC AT EQUIPME EQUIPME PRS FLW RATE O2 CONC 1 E1390 ARON ARON [place] 2 HOME HOME 85%/>02 MEDICAL MEDICAL CONC AT EQUIPME EQUIPME PRSC FLW RATE COMPREHEN 09182 COMBINED COMBINED SIVE 2 PHYSICIAN PHYSICIAN METABOLIC S LA S LA PANEL COLLECTIO 46268 COMBINED COMBINED N VENOUS 2 PHYSICIAN PHYSICIAN [place] [address] COMBINED COMBINED THYROID 2 PHYSICIAN PHYSICIAN STIMULATI S LA S LA NG HORMONE TSH PROSTATE G0103 COMBINED COMBINED CANCER 2 PHYSICIAN PHYSICIAN SCREENING S LA S LA ; PSA TEST LIPID 77354 COMBINED COMBINED PANEL 2 PHYSICIAN PHYSICIAN S LA S LA O2 CONC 1 E1390 ARON FRAZIER PORT 2 HOME HOME 85%/>02 MEDICAL MEDICAL CONC AT EQUIPME EQUIPME PRSC FLW RATE RADIOLOGI 93376 NICKI STILESUTCHER C 2 MEDICAL KIERAN EXAMINATI IMAGING ON CHEST ASS SINGLE VIEW FRONTAL ECG 35933 JERIHRMAN WEHRMAN ROUTINE 2 III MARCY III MARCY ECG W/LEAST 12 LDS I&R ONLY ECG 94084 LAURA SANCHEZ ROUTINE 2 [facility] ECG INC INC W/LEAST 12 LDS TRCG ONLY W/O I&R NONEMERG A0120 LKLP LKLP TRNSPRT: 2 [facility] Ele[employer] MINI-BUS ACTION ACTION MTN AREA/OTH SYS SAVAGE 49049 DEL MATHIS JR POST-VOID 2 MARCY MARCY ING RESIDUAL URINE&/BL ADDER CAP URNLS DIP 61069 LAURA SANCHEZ 2 [facility] STICK/TAB INC INC [place] [address] LAURA SANCHEZ THYROID 2 [facility] STIMULATI INC INC NG HORMONE TSH INSJ TEMP 65425 LAURA SANCHEZ NDWELLG 2 [facility] BLADDER INC INC CATHETER SIMPLE BASIC 14936 LAURA SANCHEZ METABOLIC 2 [facility] PANEL INC INC CALCIUM TOTAL 3D 38856 NICKI STILESUTCHER RENDERING 2 MEDICAL KIERAN IMAGING W/INTERP& ASS POSTPROC DIFF WORK STATION BLOOD 46211 LAURA SANCHEZ COUNT 2 [facility] COMPLETE INC INC AUTO&[place] [address] NICKI STILESUTCHER ABDOMEN & 2 MEDICAL KIERAN PELVIS IMAGING [place] [address] LAURA SANCHEZ INFUSION 2 [facility] HYDRATION INC INC INITIAL 31 MIN-1 HOUR RADIOLOGI 84419 NICKI ALEISHA C 2 MEDICAL KIERAN EXAMINATI IMAGING ON CHEST ASS SINGLE VIEW FRONTAL ECG 04820 RAND GORDILLO ROUTINE 2 III MARCY III MARCY ECG W/LEAST 12 LDS I&R ONLY O2 CONC 1 E1390 ARON FRAZIER PORT 2 HOME HOME 85%/>02 MEDICAL MEDICAL CONC AT EQUIPME EQUIPME [facility] FLW RATE TRIMMING 05502 BRAUDIS BRAUDIS NONDYSTRO 2 JAM JAM PHIC NAILS ANY NUMBER O2 CONC 1 E1390 ARON FRAZIER PORT 2 HOME HOME 85%/>02 MEDICAL MEDICAL CONC AT EQUIPME EQUIPME [facility] FLW RATE BLOOD 86921 LAURA SANCHEZ COUNT 2 [facility] COMPLETE INC INC AUTO&AUTO DIFRNTL WBC 3D 65211 LAURA SANCHEZ RENDERING 2 [facility] INC INC W/INTERP& POSTPROC DIFF WORK STATION BASIC 82391 LAURA SANCHEZ METABOLIC 2 [facility] PANEL INC INC CALCIUM TOTAL CT SOFT 73056 NICKI STILESUTCHER TISSUE 2 MEDICAL KIERAN NECK W/O IMAGING CONTRAST ASS MATERIAL LOCM Q9967 LAURA SANCHEZ [phone] 2 [facility] MG/ML INC INC IODINE CONCENTRA TION PER ML CT SOFT 13268 LAURA SANCHEZ TISSUE 2 [facility] NECK INC INC W/CONTRAS T MATERIAL O2 CONC 1 E1390 ARON MOSES 2 HOME HOME 85%/>02 MEDICAL MEDICAL CONC AT EQUIPME EQUIPME [facility] FLW RATE O2 CONC 1 E1390 ARON MOSES 2 HOME HOME 85%/>02 MEDICAL MEDICAL CONC AT EQUIPME EQUIPME [facility] FLW RATE CONTINUOU E0601 ARON SHARP S 2 HOME HOME POSITIVE MEDICAL MEDICAL AIRWAY EQUIPME EQUIPME PRESSURE DEVICE O2 CONC 1 E1390 ARON MOSES 2 HOME HOME 85%/>02 MEDICAL MEDICAL CONC AT EQUIPME EQUIPME [facility] FLW RATE CONTINUOU E0601 ARON SHARP S 2 HOME HOME POSITIVE MEDICAL MEDICAL AIRWAY EQUIPME EQUIPME PRESSURE DEVICE O2 CONC 1 E1390 ARON MOSES 2 HOME HOME 85%/>02 MEDICAL MEDICAL CONC AT EQUIPME EQUIPME PRSC FLW RATE CONTINUOU E0601 ARONADRIANNE SHARP S 2 HOME HOME POSITIVE MEDICAL MEDICAL AIRWAY EQUIPME EQUIPME PRESSURE DEVICE NONEMERG A0120 LKLP LKLP TRNSPRT: 2 [facility] COMMUNITY MINI-BUS ACTION ACTION MTN AREA/OTH SYS ECG 28641 ZEKE BAR ZEKE BAR ROUTINE 2 ECG W/LEAST 12 LDS I&R ONLY ECG 48016 HEEB CHR HEEB CHR ROUTINE 2 ECG W/LEAST 12 LDS I&R ONLY ECG 48667 HEEB CHR HEEB CHR ROUTINE 2 ECG W/LEAST 12 LDS I&R ONLY RADIOLOGI 14832 RADIOLOGY NEILS JONATHAN C 2 EXAMINATI ASSOCIATE ON CHEST S OF [facility] S[place] FRONTAL ECG 95208 HEEB CHR HEEB CHR ROUTINE 2 ECG [...] MEDICAL MEDICAL AIRWAY EQUIPME EQUIPME PRESSURE DEVICE [facility] E0562 ARON KNIGHTRELL HEATED 1 HOME HOME USED MEDICAL MEDICAL W/POS EQUIPME EQUIPME ARWAY PRESSURE DEVICE POLYSOM 27659 LEON QUINTERO 6/>YRS 1 ERNST ERNST SLEEP W/CPAP 4/> ADDL KATARINA ATTND POLYSOM 84942 LAURA SANCHEZ 6/>YRS 1 [facility] SLEEP INC INC W/CPAP 4/> [place] [address] NICKI MORAES ABDOMEN & 1 MEDICAL KIERAN PELVIS IMAGING W/O ASS CONTRAST MATERIAL INSJ TEMP 11954 LAURA SANCHEZ NDWELLG 1 [facility] BLADDER INC INC CATHETER SIMPLE COMPREHEN 89623 LAURA SANCHEZ SIVE 1 [facility] METABOLIC INC INC PANEL URNLS DIP 85529 LAURA SANCHEZ 1 [facility] STICK/TAB INC INC LET REAGENT AUTO MICROSCOP Y COLLECTIO 58689 LAURA Khan VENOUS 1 [facility] BLOOD INC INC VENIPUNCT URE CULTURE 08348 LAURA SANCHEZ BACTERIAL 1 [facility] INC INC QUANTTATI VE COLONY COUNT URINE 3D 67480 NICKI STILESUTCHER RENDERING 1 MEDICAL KIERAN IMAGING W/INTERP& ASS POSTPROC DIFF WORK STATION BLOOD 20021 LAURA SANCHEZ COUNT 1 [facility] COMPLETE INC INC AUTO&AUTO DIFRNTL WBC TECHNETIU A9502 LAURA Ornelas TC-99M 1 [facility] TETROFOSM INC INC IN DX PER STUDY DOSE CV STRS 58762 AICHA HOLCOMB TST 1 JEANIE JEANIE XERS&/OR RX CONT ECG I&R ONLY MYOCARDIA 31448 LAURA SANCHEZ L SPECT 1 [facility] MULTIPLE INC INC STUDIES INJECTION J2785 LAURA SANCHEZ 1 [facility] REGADENOS INC INC ON 0.1 MG CV STRS 35446 AICHA RUFFINSON TST 1 JEANIE JEANIE XERS&/OR RX CONT ECG W/O I&R CV STRS 62620 LAURA SANCHEZ TST 1 [facility] XERS&/OR INC INC RX CONT ECG TRCG ONLY INITIAL 50895 AICHA HOLCOMB OBSERVATI 1 JEANIE JEANIE ON CARE/DAY 30 MINUTES RADIOLOGI 69966 NICKI Swartz EXAM 1 MEDICAL [facility] CHEST 2 IMAGING VIEWS ASS FRONTAL&L ATERAL ECG 35916 PUND CHR PUND CHR ROUTINE 1 ECG W/LEAST 12 LDS I&R ONLY NONEMERG A0120 [facility] TRNSPRT: 1 [facility] MINI-BUS ACTION N NVN AREA/OTH SYS ECHO 43423 LAURA SANCHEZ TTHRC R-T 1 [facility] 2D INC INC W/WOM-MOD E COMPL SPEC&COLR D POLYSOM 51078 LEON QUINTERO 6/>YRS 1 ERNST ERNST SLEEP 4/> ADDL KATARINA ATTND POLYSOM 03353 LAURA SANCHEZ 6/>YRS 1 [facility] SLEEP 4/> INC INC ADDL KATARINA ATTND NONINVASI 43800 LAURA SANCHEZ VE 1 [facility] EAR/PULSE INC INC OXIMETRY SINGLE DETER SPMTRY 22291 LAURA SANCHEZ W/VC 1 [facility] EXPIRATOR INC INC Y MARYLOU W/WO MXML VOL VNTJ NONEMERG A0120 LK LK TRNSPRT: 1 [facility] ACTION N MTN AREA/OTH SYS CHRMS 54757 LAURA SANCHEZ ANALYSIS 1 [facility] ADDL HIGH [place] [address] LAURA SANCHEZ THYROID 1 [facility] STIMULATI INC INC NG HORMONE TSH COMPREHEN 85907 LAURA SANCHEZ SIVE 1 [facility] METABOLIC INC INC PANEL COLLECTIO 12678 LAURA Khan VENOUS 1 [facility] BLOOD INC INC VENIPUNCT URE CHRMSM 65138 LAURA SANCHEZ COUNT 1 [facility] 15-20 CLL INC INC 2KARYOTYP BANDING BLOOD 17492 LAURA SANCHEZ COUNT 1 [facility] COMPLETE INC INC AUTO&AUTO DIFRNTL WBC COLLECTIO 64934 COMBINED COMBINED N VENOUS 1 PHYSICIAN PHYSICIAN BLOOD S LA S LA VENIPUNCT URE COMPREHEN 51915 COMBINED COMBINED SIVE 1 PHYSICIAN PHYSICIAN [place] [address] COMBINED COMBINED THYROID 1 PHYSICIAN PHYSICIAN STIMULATI S LA S LA NG HORMONE TSH LIPID 78578 COMBINED COMBINED PANEL 1 PHYSICIAN PHYSICIAN S LA S LA PROSTATE G0103 COMBINED COMBINED CANCER 1 PHYSICIAN PHYSICIAN SCREENING S LA S LA ; PSA TEST TRAVEL [address] MED 1 PHYSICIAN PHYSICIAN NEC LAB S LA S LA SPEC; PRORATD TRIP CHRG NONEMERG A0120 LKLP LKLP TRNSPRT: 1 [facility] ACTION N NVN ARE[place] [address] ORAL ORAL SURG 1 PATHOLOGY PATHOLOGY PATHOLOGY LABORATOR LABORATOR GROSS&ARMANDO Y Y ROSCOPIC EXAM URNLS DIP 25945 COMBINED COMBINED 1 PHYSICIAN PHYSICIAN STICK/TAB S LA S LA LET REAGENT AUTO MICROSCOP Y CULTURE 32576 COMBINED COMBINED BACTERIAL 1 PHYSICIAN PHYSICIAN S LA S LA QUANTTATI VE COLONY COUNT URINE ORTHOPANT 24709 THE THE OGRAM 1 IMPLANT & IMPLANT & ORAL ORAL SURGERY C SURGERY C NONEMERG A0120 LKLP LKLP TRNSPRT: 1 [facility] ACTION N [facility] AREA/OTH SYS EXC 84621 THE RODRIGUEZ, LESION/TU 1 IMPLANT & III OANH MOR ORAL DENTOALVE SURGERY C OLAR STRUX W/SMPL RPR NONEMERG A0120 LKLP LKLP TRNSPRT: 1 [facility] ACTION N NVN AREA/OTH SYS NONEMERG A0120 LKLP LKLP TRNSPRT: [address] [facility] ACTION N NVN AREA/OTH SYS OPHTH 16600 MARIANNE [place] [facility] 1 VISION XM&EVAL COMPRE NEW PT 1/> VST SET-UP Q0092 [facility] 1 [facility] X-RAY EQUIPMENT RADEX 06737 [facility] WRIST 1 [facility] COMPLETE MINIMUM 3 VIEWS TRANS R0070 [facility] PRTBL 1 [facility] X-RAY EQP&PERS [place]/NRS R[place]-TRIP 1 PT TRANS R0070 [facility] PRTBL 1 [facility] X-RAY EQP&PERS [place]/NRS R[place]-TRIP 1 PT RADIOLOGI 63263 [facility] C 1 [facility] EXAMINATI ON CHEST SINGLE VIEW FRONTAL SET-UP Q0092 [facility] PORTABLE 1 [facility] X-RAY EQUIPMENT INSJ TEMP 00372 LAURA SANCHEZ NDWELLG 1 [facility] BLADDER INC INC CATHETER SIMPLE URNLS DIP 20590 LAURA SANCHEZ 1 [facility] STICK/TAB INC INC LET REAGENT AUTO MICROSCOP Y COMPREHEN 55527 LAURA SANCHEZ SIVE 1 [facility] METABOLIC INC INC PANEL BLOOD 53232 LAURA SANCHEZ COUNT 1 [facility] COMPLETE INC INC AUTO&AUTO DIFRNTL WBC 3D 75706 LAURA SANCHEZ RENDERING 1 [facility] INC INC W/INTERP& POSTPROC DIFF WORK STATION AMBULANCE A0429 [facility] SERVICE 1 [facility] AMBULANCE BLS SERVICE SERVICE EMERGENCY TRANSPORT GROUND A0425 [facility] [facility] MILEAGE 1 AMBULANCE AMBULANCE [place] [address] LAURA SANCHEZ ABDOMEN & 1 [facility] PELVIS INC INC W/O CONTRAST MATERIAL ECG [address] [facility]OUTINE [facility] ECG CARDIOLOG W/LEAST Y CLINIC 12 LDS I&R ONLY GROUND [id number] MERCURY MERCURY MILEAGE 1 AMBULANCE AMBULANCE PER SERVICE SERVICE STATUTE MILE TRANS R0075 EXPRESS EXPRESS PRTBL 1 MOBILE MOBILE XRAY DIAGNOSTI DIAGNOSTI EQP&PERS C SE C SE RICHMOND/NRS RICHMOND-TRIP> 1 PT SBSQ [address] CARE/DAY URGENT 25 TREAT MINUTES AMB [id number] MERCURY MERCURY SERVICE 1 AMBULANCE AMBULANCE ALS SERVICE SERVICE EMERGENCY TRANSPORT LEVEL 1 RADIOLOGI 03776 [facility] [place] RADHA C 1 RADIOLOGY BOY EXAMINATI ON CHEST SINGLE VIEW FRONTAL RADEX 80903 EXPRESS EXPRESS WRIST 1 MOBILE MOBILE COMPLETE DIAGNOSTI DIAGNOSTI MINIMUM 3 C SE C SE VIEWS SET-UP Q0092 EXPRESS EXPRESS PORTABLE 1 MOBILE MOBILE X-RAY DIAGNOSTI DIAGNOSTI EQUIPMENT C SE C SE RADEX 98459 EXPRESS EXPRESS HAND 1 MOBILE MOBILE MINIMUM 3 DIAGNOSTI DIAGNOSTI VIEWS C SE C SE SBSQ 46796 [facility] [place] CARE/DAY URGENT 35 TREAT MINUTES SBSQ 96155 [facility] [place] CARE/DAY URGENT 25 TREAT MINUTES SBSQ 51619 [facility] [place] CARE/DAY URGENT 25 TREAT MINUTES SBSQ 58991 [place] [address] URGENT CARE/DAY TREATMENT 35 A MINUTES RADEX 65496 EXPRESS EXPRESS HAND 1 MOBILE MOBILE MINIMUM 3 DIAGNOSTI DIAGNOSTI VIEWS C SE C SE SET-UP Q0092 EXPRESS EXPRESS PORTABLE 1 MOBILE MOBILE X-RAY DIAGNOSTI DIAGNOSTI EQUIPMENT C SE C SE TRANS R0070 EXPRESS EXPRESS PRTBL 1 MOBILE MOBILE X-RAY DIAGNOSTI DIAGNOSTI EQP&PERS C SE C SE RICHMOND/NRS RICHMOND-TRIP 1 PT SBSQ 19537 [facility] 1 URGENT CARE/DAY TREATMENT 35 A MINUTES SBSQ 44101 [facility] [place] CARE/DAY URGENT 35 TREAT MINUTES SET-UP Q0092 EXPRESS EXPRESS PORTABLE 1 MOBILE MOBILE X-RAY DIAGNOSTI DIAGNOSTI EQUIPMENT C SE C SE RADIOLOGI 19664 EXPRESS EXPRESS C EXAM 1 MOBILE MOBILE CHEST 2 DIAGNOSTI DIAGNOSTI VIEWS C SE C SE FRONTAL&L ATERAL TRANS R0070 EXPRESS EXPRESS PRTBL 1 MOBILE MOBILE X-RAY DIAGNOSTI DIAGNOSTI EQP&PERS C SE C SE RICHMOND/NRS RICHMOND-TRIP 1 PT ECG 92490 [facility] ROUTINE 1 [place] ECG URGENT W/LEAST TREAT 12 LDS I&R ONLY ECG 47115 EXPRESS EXPRESS ROUTINE 1 MOBILE MOBILE ECG DIAGNOSTI DIAGNOSTI W/LEAST C SE C SE 12 LDS TRCG ONLY W/O I&R INITIAL 93379 [facility] 1 URGENT CARE/DAY TREATMENT 50 [place] [address] FAMILY [facility] THYROID 1 [facility]ACT [facility] STIMULAT[facility] [place] [address] FAMILY MONONORBERTO FREE 1 [facility]ACT [facility] THYROXINE ASSOC OF [place] RADEX 46214 [facility] J SPINE 1 RADIOLOGY THORACIC ASSOC MINIMUM 4 VIEWS COMPREHEN 30933 [facility]ILY [facility] SIVE 1 [facility]ACT [facility] METABOLIC ASSOC OF PANEL [place] COLLECTIO 69904 FAMILY FAMILY N VENOUS 1 PRACT PRACT BLOOD ASSOC OF ASSOC OF VENIPUNCT [place] URE LIPID 37015 [facility] PANEL 1 [facility] [place] URNLS DIP 81461 FAMILY MONOHAN 1 PRACT RONALD STICK/TAB ASSOC OF [place] [address] [facility] [place] ABDOMEN & 1 RADIOLOGY LD A PELVIS W/CONTRAS T MATERIAL Encounters Encounter Start End Date Code Location Performer Type Date OFFICE 99303 M[facility] STRANGEEN 7 7 MEDICAL T VISIT SERV 25 FOUNDATIO MINUTES [facility] LAURA - OTHER 7 7 [facility] OTHER 7 7 [facility] [place] 7 7 [facility] - 7 7 [facility] T OFFICE 16926 LA[facility] LEAL OUTPATIEN 7 7 [facility] [address] [facility] [place] INPAT[facility] 7 7 [facility] [place] 7 7 [facility] OFF[facility] 26054 MUNDO BENAVIDES OUTPATIEN 7 7 MEDICAL T VISIT SERV 40 FOUNDATIO MINUTES [facility] LAURA - OTHER 7 7 [facility] INPATIENT 7 7 [facility] E OFF[facility] 19311 [facility] PETTE[facility] OUTPATIEN 7 7 PHYSICIAN T VISIT S GROUP 10 MINUTES HOSPITAL [facility] - 7 7 [facility] OUTPATIEN INC T OFFICE 23449 [facility] MEREDITH OUTPATIEN 7 7 PHYSICIAN T VISIT S GROUP 25 MINUTES OFFICE 65415 LAURA LEAL OUTPATIEN 7 7 [facility] T [facility]OSPITAL [address] [facility] INPATIENT 7 7 [facility] - 7 7 [facility] LAURA - 7 7 [facility] OUTPATIEN [facility] OFFICE 79501 LAURA LEAL OUTPATIEN 7 7 [facility] T VISIT HOSPITAL 10 P MINUTES OFFICE 60457 [facility] OUTPATIEN 7 7 PHYSICIAN T VISIT S GROUP 15 MINUTES HOSPITAL [facility]A - 7 7 [facility] OUTPATIEN [facility] LAURA - OTHER 7 7 [facility] INPATIENT 7 7 [facility]ALTH[facility] E OFFICE 40050 [facility] BRYANT OUTPATIEN 7 7 PHYSICIAN T NEW 20 S GROUP MINUTES [facility] [place] INPATIENT 7 7 [facility]ALTH[facility] E OFFICE 62982 [facility] MEREDITH OUTPATIEN 7 7 PHYSICIAN T VISIT S GROUP 25 MINUTES HOSPITAL [facility] - 7 7 [facility] OUTPATIEN INC T [facility] INPATIENT [address] [facility] INPATIENT 7 [address] [facility] INPATIENT 7 7 HEALTHCAR E EMERGENCY 25415 KEVIN PATRICK DEPT 7 7 PHYSICIAN VISIT S, [facility] HIGH SEVERITY& THREAT [facility] - 7 7 [facility] OFFICE 21996 M[place]DO [place] OUTPATIEN 7 7 MEDICAL T VISIT SERV [address] F[address]AT[address] [facility] [address] [facility] INPATIENT [address] [facility] INPATIENT 6 6 [facility] LAURA - 6 6 [facility] OUTPATIEN [facility] T OFFICE 63272 MUNDO BENAVIDES OUTPATIEN 6 6 MEDICAL T VISIT SERV [address] [facility] [address] [facility] 6 6 [facility] LA[facility]A - 6 6 [facility] OUTPATIEN [facility] T OFFICE 72240 [facility] MEREDITH OUTPATIEN 6 6 PHYSICIAN MAT T VISIT S GROUP [address] [facility] 6 [address] [facility] 6 [address] [facility] INPATIENT 6 6 [facility]ALTHCAR E OFFICE 70547 [facility] MEREDITH OUTPATIEN 6 6 PHYSICIAN MAT T VISIT S GROUP 25 MINUTES OFFICE 96450 [facility] OUTPATIEN 6 6 PHYSICIAN MAT T VISIT S GROUP 25 MINUTES [facility]IC[facility] - 6 6 [facility] LA[facility]A - 6 6 [facility] OUTPATIEN INC T OFFICE 46891 [facility] MEREDITH OUTPATIEN 6 6 PHYSICIAN MAT T VISIT S GROUP 25 MINUTES [facility] - 6 [facility] LAURA - 6 6 [facility] OUTPATIEN INC T OFFICE 24039 [facility] OUTPATIEN 6 6 CULAR MAT T VISIT CONSULTAN 25 TS O MINUTES [facility]OSPITAL [facility] - 5 5 [facility] OUTPATIEN INC T EMERGENCY 98484 [facility]UR[facility] 5 5 [facility] DEPARTMEN INC T VISIT LOW/MODER SEVERITY OFFICE 15525 [facility] OUTPATIEN 5 5 CULAR MAT T VISIT CONSULTAN 40 TS O MINUTES [facility] LAURA - 5 5 [facility] OUTPATIEN INC T OFFICE 65806 [facility] 5 5 Y T VISIT 5 [facility] OUTPATIEN INC T EMERGENCY 39507 [facility] 5 5 [facility] DEPARTMEN INC T VISIT MODERATE SEVERITY [facility] - 5 5 [facility] OUTPATIEN [facility] T [facility] LAURA - 4 4 [facility] OUTPATIEN INC T OFFICE 89283 MUNDO VICKIER OUTPATIEN 4 4 MEDICAL SHA T NEW SERV MINUTES FOUNDATIO N OFFICE 52891 [facility] 4 4 T VISIT 10 MINUTES OFFICE 89149 [facility] 4 4 T VISIT 10 MINUTES HOSPITAL [facility] - 4 4 [facility] OUTPATIEN INC T OFFICE 94640 ANNETTE CRUZON OUTPATIEN 4 4 DEUCE DEUCE T NEW 30 MINUTES HOSPITAL [facility] - 4 4 [facility] OUTPATIEN INC T OFFICE 32467 [facility] PETTEY OUTPATIEN 4 4 PHYSICIAN JAM T VISIT S GROUP 15 MINUTES HOSPITAL [facility] - 3 3 [facility] - 3 3 [facility] OUT[facility]EN [facility] LAURA - 3 3 [facility] OUTPATIEN [facility] Emergency LINDSEY Sánchez MD (ER) 3 18:45 3 19:27 [facility] OFFICE 15610 [facility] 3 3 NEUROLOGY DYLAN T VISIT CENTER 15 [place] MINUTES [facility] - 3 3 [facility] - 3 3 [facility] OFFICE 69121 [facility] 3 3 FOOT AND T NEW 20 ANKLE MINUTES CENTER OFFICE 72579 [facility] 3 3 [facility] VISIT HOSPITAL 25 MINUTES Emergency LINDSEY Patrick MD (ER) 3 23:50 3 01:33 [facility] EMERGENCY 03567 LAUR[facility] 3 3 [facility]NOTE 3] VISIT HIGH/URGE NT SEVERITY EMERGENCY 87980 ERIC PATRICK DEPT 3 3 MEDICAL [facility] PLL[facility] SEVERITY& THREAT [facility] LAURA - 3 3 [facility]IEN [facility] [address] [facility] [address] T VISIT LOW/MODER SEVERITY EMERGENCY [address] [facility] 3 3 [facility] EMERGENCY T VISIT PHYSI MODERATE SEVERITY OFFICE 63715 [facility] 3 3 ZO CARR DAY T VISIT CARDIOLOG 15 Y CLINIC MINUTES [facility]OSPITAL [facility] - 3 3 [facility] OUTPATIEN [facility] OFFICE 12092 C ANTONETTE DORIS OUTPATIEN 2 2 DORIS Dillon MD [facility] MINUTES OFFICE [address] [facility] [place] [facility] 2 2 ZO WINN T VISIT CARDIOLOG 25 Y CLINIC MINUTES [facility]OSPITAL [facility] - 2 2 [facility] OUTPATIEN [facility] LA[facility]A - 2 2 [facility] OUTPATIEN [facility] EMERGENCY 28908 LAUR[facility] 2 2 [facility]MEN [facility] T VISIT MODERATE SEVERITY HOSPITAL [facility] - 2 2 [facility] LAURA - 2 2 [facility] OUTPATIEN [facility] EMERGENCY 07697 LAURA 2 2 [facility] DEPARTMEN [facility] T VISIT HIGH/URGE NT SEVERITY [facility]OSPITAL [facility] - 2 2 [facility] OUTPATIEN [facility] EMERGENCY 40870 [facility] 2 2 [facility] DEPARTMEN [facility] T VISIT LOW/MODER SEVERITY [facility]OSP[facility] - 1 1 [facility] OUT[facility]IEN [facility] EMERGENCY 59594 LAUR[facility] 1 1 [facility] T VISIT HIGH/URGE NT SEVERITY HOSPITAL [facility] - 1 1 [facility] OUTPATIEN [facility] - 1 1 [facility]PATI[facility] - 1 1 [facility] - 1 1 [facility] - 1 1 [facility] OFFICE 40323 [place] BE[facility] OUTPATIEN 1 1 [facility] 60 SERV MINUTES FOUNDATIO EMERGENCY 75108 LAURA 1 1 [facility] DEPARTMEN INC T VISIT HIGH/URGE NT SEVERITY EMERGENCY 72062 AMANDA PATRICK DEPT 1 1 EMERGENCY ARMANDO VISIT SERVICES HIGH SEVERITY& THREAT [facility] LAURA - 1 1 [facility] OUTPATIEN INC T OFFICE 55742 LAURA MATHIS OUTPATIEN 1 [address] [facility] 30 HOSPITAL MINUTES P OFFICE 76534 FAMILY MONOHAN OUTPATIEN 1 1 PRACT RONALD T VISIT ASSOC OF 25 [place] PS MINUTES OFFICE 07579 FAMILY MONOHAN OUTPATIEN 1 1 PRACT RONALD T VISIT ASSOC OF 25 [place] PS MINUTES EMERGENCY 09370 [facility] DESMOND DEPT 1 1 PRIMARY CARLOS VISIT CARE HIGH PHYSICANS SEVERITY& M THREAT FUN
--- OUTSIDE RECORDS SUMMARY | 2017-05-30 13:18 | External Medical Summary Rpt | CCD ---
Author Author , GRAHAM Organization GRAHAM Address Unknown Phone [email or web address] Over Me Care Team Providers Care Blocker Hand Name Role Phone [facility], [facility] Unavailable Unavailable [facility], [facility] Unavailable Unavailable RADHA BOY, RADHA Unavailable Unavailable BOY [facility] Unavailable Unavailable PHYSICANS M, [facility] M LEAL, LEAL Unavailable Unavailable [facility] Unavailable Unavailable [facility], [facility] Unavailable Unavailable [facility]OC[facility], [facility] DESMOND CARLOS, Unavailable Unavailable DESMOND CARLOS ANJUR-KAPALI DAY, Unavailable Unavailable ANJUR-KAPALI DAY MAGDALENA FAD, MAGDALENA FAD Unavailable Unavailable [facility] Un[facility] BEINEKE GILMA, BEINEKE Unavailable Unavailable GILMA BESSON, BESSON Unavailable Unavailable BESSON JEANIE, BESSON Unavailable Unavailable JEANIE BESSON JEANIE, BESSON Unavailable Unavailable JEANIE ORDONEZ, ORDONEZ Unavailable Unavailable ORDONEZ ALL, ORDONEZ ALL Unavailable Unavailable BRAUDIS JAM, BRAUDIS Unavailable Unavailable JAM BRAUDIS JAM, BRAUDIS Unavailable Unavailable JAM [facility] Unavailable Unavailable SERVICE, [facility] Unavailable Unavailable SERVICE, [facility] DOBSON LAR, DOBSON LAR Unavailable [...] QUINTERO ERNST, Unavailable Unavailable QUINTERO ERNST [facility] Un[facility] Unavailable [facility] VINH DYLAN, Unavailable Unavailable VINH DYLAN [...] ARMANDO SUAD ARMANDO, SUAD ARMANDO Unavailable [facility]available [facility] Unavailable Unavailable INC, [facility] Unavailable Unavailable HOSPITAL, [facility] Unavailable [facility]available HOSPITAL P, [facility] P HEEB CHR, HEEB CHR Unavailable Unavailable [facility], [facility] Unavailable Unavailable [facility], [facility] Unavailable Unavailable [facility], Unavailable Unavailable [facility] Unavailable Unavailable IMAGING [facility], [facility] KIERRA THO, KIERRA THO Unavailable Unavailable [facility] BRYANT, BRYANT Unavailable Unavailable BRYANT DEUCE, BRYANT Unavailable Unavailable DEUCE CHRIS EHSAN, CHRIS Unavailable Unavailable EHSAN HAROLDO JR DWI, HAROLDO Unavailable Unavailable JR DWI HAROLDO JR DWI, HAROLDO Unavailable Unavailable JR DWI [facility] Unavailable Unavailable 11, [facility] 11 [facility], Unavailable Unavailable [facility] Unavailable Unavailable ACTION, [facility] KNOWLES JAM, Unavailable Unavailable KNOWLES JAM KNOWLES JAM, Unavailable Unavailable KNOWLES JAM BENAVIDES, BENAVIDES Unavailable Unavailable BENAVIDES JAM, Unavailable Unavailable BENAVIDES J[facility] Un[facility] Unavailable [facility], [facility] Unavailable Unavailable [facility], [facility]available Unavailable [facility] Unavailable Unavailable SERVICE, [facility] MONOHAN RONALD, MONOHAN Unavailable Unavailable RONALD SIEGEL JUAQUIN, SIEGEL Unavailable Unavailable JUAQUIN ONDINA, ONDINA Unavailable Unavailable ONDINA SHA, ONDINA Unavailable Unavailable SHA NEILS JONATHAN, NEILS JONATHAN Unavailable Unavailable [facility] Unavailable Unavailable URGENT TREAT, [facility] Unavailable Unavailable [...] MEREDITH Unavailable Unavailable MEREDITH MAT, Unavailable Unavailable MEREDIHT MAT EBONI Rose, EBONI Rose Unavailable Unavailable SKRIP JR., SKRIP JR. Unavailable Unavailable SKRIP JR. SELVIN, SKRIP Unavailable Unavailable JR. SELVIN [facility] Unavailable Unavailable [facility], [facility] Un[facility] Unavailable TREATMENT A, [facility] Unavailable Unavailable EMERGENCY [facility], [facility] Unavailable Unavailable OF [facility], [facility], Unavailable [facility]available [facility] Unavailable Unavailable CLINIC, [facility] Unavailable Unavailable SURGERY C, [facility] Unavailable [facility]available HOSPITALS, [facility], Unavailable Unavailable [facility] WEHRMAN III MARCY, Unavailable Unavailable WEHRMAN III MARCY ZEKE BAR, ZEKE BAR Unavailable Unavailable ZEKE BAR, ZEKE BAR Unavailable Unavailable KALINA A, Unavailable Unavailable KALINA A Purpose Continuity of Care Document - 12-28-2010 through 2016 Problems Code Diagnosis DOS Provider Status E119 TYPE 2 05-08-2017 [facility] DIABETES [facility] MELLITUS ASSOCIATES WITHOUT COMPLICATIO NS R109 UNSPECIFIED 05-08-2017 [facility] ABDOMINAL HEALTH PAIN ASSOCIATES D649 ANEMIA 04-24-2017 [facility] UNSPECIFIED HEALTH ASSOCIATES E6601 MORBID 04-24-2017 [facility] SE[facility] SERV OBESITY DUE FOUNDATION TO EXCESS CALORIES J449 CHRONIC 04-24-2017 [facility] OBSTRUCTIVE SERV PULMONARY FOUNDATION DISEASE UNS J9610 CHRONIC 04-24-2017 [facility]PIR[facility]ORY SERV FAIL UNS FOUNDATION HYPOXIA/HYP ERCAPNIA J988 OTHER 04-24-2017 [place] [facility] SPECIFIED SERV RESPIRATORY FOUNDATION DISORDERS N390 URINARY 04-07-2017 [facility] TRACT [facility] INFECTION INC SITE NOT SPECIFIED I2510 ASHD TULALIP 04-06-2017 [facility] CORONARY [facility]ALTH[facility]ARE ARTERY W/O ANGINA PECTORIS R627 ADULT 04-06-2017 [facility] FAILURE TO HEALTH THRIVE ASSOCIATES G4733 OBSTRUCTIVE 04-04-2017 [facility] SLEEP [facility] APNEA ADULT INC PEDIATRIC I509 HEART 04-04-2017 [facility] FAILURE [facility] UNSPECIFIED INC R0602 SHORTNESS 04-04-2017 [place] OF BREATH [facility]ICAL IM[facility]ING ASS R1310 DYSPHAGIA 04-04-2017 [place] UNSPECIFIED MEDICAL IMAGING ASS R5383 OTHER 04-04-2017 [facility] HEALTH ASSOCIATES R942 ABNORMAL 04-04-2017 [facility] RESULTS OF [facility] PULMONARY INC FUNCTION STUDIES E162 HYPOGLYCEMI 03-27-2017 [facility] A HEALTH UNSPECIFIED ASSOCIATES V60823 OTHER LONG 03-21-2017 [facility] [address] [facility] CURRENT ASSOCIATES DRUG THERAPY B351 TINEA 02-05-2017 SPECIAL UNGUIUM CARE PODIATRY OF YAM[place] D39631 PAIN IN 02-05-2017 SPECIAL RIGHT TOES CARE PODIATRY OF [place] Y48127 PAIN IN 02-05-2017 SPECIAL LEFT TOES CARE PODIATRY OF [place] R69 ILLNESS 01-16-2017 [facility] UNSPECIFIED TRANSPORTAT ION SER Z9989 DEPENDENCE 01-16-2017 [place] [facility] ON OTHER SERV ENABLING FOUNDATION MACHINES & DEVICES W51316 PAIN IN 01-13-2017 [facility] RIGHT KNEE [employer] F77001 PAIN IN 01-13-2017 [facility] RIGHT LEG LLC B38476 PAIN IN 01-13-2017 [facility] RIGHT LOWER LLC LEG I10 ESSENTIAL 01-09-2017 [facility] HEALTH HYPERTENSIO ASSOCIATES N R4182 ALTERED 01-09-2017 [facility] MENTAL HEALTH STATUS ASSOCIATES UNSPECIFIED R531 WEAKNESS 01-09-2017 [facility] Z7409 OTHER 01-09-2017 [facility] REDUCED [facility] MOBILITY INC I517 CARDIOMEGAL 01-08-2017 [facility] Y LLC E82083 PAIN IN 01-04-2017 [place] RIGHT WRIST MEDICAL IMAGING ASS M7989 OTHER 01-04-2017 [place] SPECIFIED MEDICAL SOFT TISSUE IMAGING ASS DISORDERS R609 EDEMA 01-04-2017 [facility] UNSPECIFIED [facility] INC Q98590 PAIN IN 01-01-2017 [facility] RIGHT LLC FOREARM M7541 IMPINGEMENT 12-28-2016 [facility] SYNDROME PHYSICIANS OF RIGHT GROUP SHOULDER E785 HYPERLIPIDE 12-19-2016 [facility] OSMANY PHYSICIANS UNSPECIFIED GROUP I119 HYPERTENSIV 12-19-2016 [facility] E HEART PHYSICIANS DISEASE GROUP WITHOUT HEART FAILURE N3000 ACUTE 12-12-2016 [facility] P HEMATURIA I272 OTHER 11-27-2016 [facility] SECONDARY [facility] PULMONARY INC HYPERTENSIO N N3001 ACUTE 11-21-2016 [place] CYSTITIS [facility] WITH HOSPITAL P HEMATURIA N28903 PAIN IN 11-16-2016 [place] RIGHT MEDICAL SHOULDER IMAGING ASS K140 GLOSSITIS 11-02-2016 [facility] PHYSICIANS GROUP R918 OTHER 10-11-2016 [facility] NONSPECIFIC LLC ABNORMAL FINDING OF LUNG FIELD R0682 TACHYPNEA 09-19-2016 [facility] NOT PHYSICIANS ELSEWHERE GROUP CLASSIFIED R072 PRECORDIAL 09-04-2016 [facility] PAIN PHYSICIANS, [facility] R0789 OTHER CHEST 09-04-2016 [facility] PAIN AMBULANCE SERVICE R079 CHEST PAIN 09-04-2016 [place] UNSPECIFIED MEDICAL IMAGING ASS Z955 PRESENCE OF 09-04-2016 [place] CORONARY [facility] ANGIOPLASTY HOSPITAL P IMPLANT & GRAFT Z29426 MECHANICAL 08-24-2016 [facility] PTOSIS OF SERV RIGHT FOUNDATION EYELID I89403 DERMATOCHAL 08-24-2016 [place] [facility] ASIS OF SERV RIGHT EYE FOUNDATION UNSPECIFIED EYELID H22217 DERMATOCHAL 08-24-2016 [place] [facility] ASIS OF SERV LEFT EYE FOUNDATION UNSPECIFIED EYELID G4730 SLEEP APNEA 06-07-2016 [facility] SERV UNSPECIFIED FOUNDATION E876 HYPOKALEMIA 05-29-2016 [facility] K219 GASTRO-ESOP 04-25-2016 [facility] REFLUX [facility] DISEASE [facility] P WITHOUT ESOPHAGITIS Q76735 SPONDYLOSIS 04-04-2016 [place] W/O MEDICAL MYELOPATH/R IMAGING ASS ADICULOPATH Y CERV RGN M5032 OTH CERV 04-04-2016 [place] DISC MEDICAL DEGENERATIO IMAGING ASS N MID-CERVICA L REGION M542 CERVICALGIA 04-04-2016 [place] M545 LOW BACK 04-04-2016 [place] PAIN MEDICAL IMAGING ASS M546 PAIN IN 04-04-2016 [place] THORACIC MEDICAL SPINE IMAGING ASS N244JSG UNSPECIFIED 04-04-2016 [place] INJURY OF MEDICAL NECK IMAGING ASS INITIAL ENCOUNTER H5347EQ UNSPECIFIED 04-04-2016 [place] INJURY MEDICAL LOWER BACK IMAGING ASS INITIAL ENCOUNTER K449 DIAPHRAGMAT 03-03-2016 [place] IC HERNIA [facility] W/O HOSPITAL P OBSTRUCTION OR GANGRENE Y97492 PERSONAL 03-03-2016 [place] HISTORY OF [facility] P DEPENDENCE I208 OTHER FORMS 02-25-2016 [facility] OF ANGINA PHYSICIANS PECTORIS GROUP G18612 ASHD TULALIP 02-25-2016 [facility] COR ART PHYSICIANS W/UNSTABLE GROUP ANGINA PECTORIS E662 MORBID 02-21-2016 [facility] SEVERE [facility] OB[facility]ITY [facility]PITAL P W/ALVEOLAR HYPOVENTILA TION P22899 ASHD TULALIP 02-21-2016 [facility] P ANGINA PECTORIS M654 RADIAL 02-16-2016 [facility] STYLOID [facility] TENOSYNOVIT INC IS DE QUERVAIN U30719 OTHER 02-16-2016 [facility] SYNOVITIS [facility] AND INC TENOSYNOVIT IS RIGHT HAND I209 ANGINA 12-08-2015 [place] [facility]IS REGIONAL UNSPECIFIED MEDICAL N34994 ASHD TULALIP 12-08-2015 [facility] COR ART PHYSICIANS W/OTH FORMS GROUP ANGINA PECTORIS R0600 DYSPNEA 11-29-2015 [facility] UNSPECIFIED [facility] HOS[facility] INC K805H3Q CONCUSSION 11-20-2015 [facility] W/LOC 30 [facility] P INITIAL ENCOUNTER I5251ZM UNSPECIFIED 11-20-2015 [place] INJURY OF MEDICAL HEAD IMAGING ASS INITIAL ENCOUNTER T554WZU STRAIN 11-20-2015 [place] MUSCLE [facility] P NECK LEVL INIT ENC M77668N CONTUSION 11-20-2015 [facility] UNS BACK [facility] THORAX [facility] P INITIAL ENCOUNTER Z043 ENCOUNTER 11-20-2015 [place] EXAM & MEDICAL OBSERVATION IMAGING ASS FOLLOW OT ACCIDENT R339 RETENTION 07-12-2015 [facility] JEANIE OF URINE UNSPECIFIED G15513 PAIN IN 06-30-2015 [place] LEFT MEDICAL FINGERS IMAGING ASS F6095TV UNSPECIFIED 06-30-2015 [facility] INJURY LT MEDICAL WRIST HAND IMAGING ASS FINGERS INITIAL B353 TINEA PEDIS 06-08-2015 [facility] INC 22954 OBSTRUCTIVE 05-04-2015 [facility] [place] [address] UNSPEC HTN 05-04-2015 [facility] HEART LAR DISEASE CONSULTANTS WITHOUT O HEART FAIL 71753 COR 05-04-2015 [facility] ATHEROSLERO [facility] UNSPEC INC TYPE VESSEL [place]/MAHSA T 4160 PRIMARY 05-04-2015 [facility] PULMONARY LAR HYPERTENSIO CONSULTANTS N O 4168 OTHER 05-04-2015 [facility] CHRONIC [facility] PULMONARY INC HEART DISEASES 496 CHRONIC 05-04-2015 [facility] AIRWAY [facility] OBSTRUCTION INC NEC 69201 05-04-2015 [facility] ION SER V7284 UNSPECIFIED 05-04-2015 [facility] PRE-OPERATI INC VE EXAMINATION 3699 UNSPECIFIED 04-28-2015 [facility] LOSS 72982 UNSPECIFIED 04-28-2015 [place] PTOSIS [facility] EYELID V7283 OTHER 04-28-2015 [facility] PRE-OPERATI VE EXAMINATION 00322 ACUTE 02-16-2015 [facility] RESPIRATORY FAILURE 4111 INTERMEDIAT 01-25-2015 [facility] E CORONARY LAR SYNDROME CONSULTANTS O 4293 CARDIOMEGAL 01-23-2015 [place] Y MEDICAL IM[facility] ASS 5920 CALCULUS OF 01-23-2015 [place] KIDNEY [facility] 53941 UNSPECIFIED 01-23-2015 [place] RETENTION MEDICAL OF URINE IMAGING ASS 72309 ABDOMINAL 01-23-2015 [place] PAIN RIGHT MEDICAL LOWER IMAGING ASS QUADRANT 15624 PAIN IN 01-03-2015 [place] JOINT MEDICAL PELVIC IMAGING ASS REGION AND THIGH 85406 DISPLCMT 01-03-2015 [place] THOR MEDICAL INTERVERT IMAGING ASS DISC WITHOUT MYELOPATHY 7231 CERVICALGIA 01-03-2015 [place] 7241 PAIN IN 01-03-2015 [place] THORACIC MEDICAL SPINE IMAGING ASS 19740 CHEST PAIN 01-03-2015 [place] UNSPECIFIED MEDICAL IMAGING ASS 22573 HYPERTENSIV 12-28-2014 [facility] E HEART [facility] DISEASE INC UNSPEC W/HEART FAIL 4280 CONGESTIVE 12-28-2014 [facility] HEART [facility] FAILURE INC UNSPECIFIED 77624 ESOPHAGEAL 12-28-2014 [facility] REFLUX [facility] INC 84070 SHORTNESS 12-28-2014 [place] OF BREATH MEDICAL IMAGING ASS 67379 OTHER 12-18-2014 [facility] DYSPNEA AND [place] [address] MECHANICAL 04-01-2014 [place] [facility] PTOSIS SERV FOUNDATION 2449 UNSPECIFIED 03-18-2014 [facility] HYPOTHYROID INC ISM 88542 PANNUS 02-18-2014 [facility] MED[facility] SERV FOUNDATION 5950 ACUTE 12-18-2013 [place] CYSTITIS [facility] P 60616 NOCTURNAL 12-18-2013 [place] ENURESIS [facility] P 31664 OTHER 11-24-2013 [facility] MUCOPURULEN T CONJUNCTIVI TIS 74439 UNSPECIFIED 10-02-2013 [place] URINARY [facility] P E 3831 CHRONIC 09-05-2013 [facility] MASTOIDITIS [facility] INC 3839 UNSPECIFIED 09-05-2013 [facility] MASTOIDITIS INC 28515 UNSPECIFIED 09-05-2013 [facility] OTALGIA [facility] INC 470 DEVIATED 09-05-2013 [place] NASAL MEDICAL SEPTUM IMAGING ASS 94224 OTHER 09-05-2013 [place] DISEASES OF MEDICAL NASAL IMAGING ASS CAVITY AND SINUSES 92550 ARTHRALGIA 09-05-2013 [facility] TEMPOROMAND INC IBULAR JOINT 46559 PAIN IN 08-15-2013 [facility] JOINT, PHYSICIANS FOREARM GROUP 23262 PAIN IN 08-15-2013 [place] JOINT, [facility] LOWER LEG INC 28939 PLICA 08-15-2013 [facility] SYNDROME PHYSICIANS GROUP 3540 CARPAL 06-23-2013 [place] TUNNEL [facility] SYNDROME INC V5869 LONG-TERM 06-23-2013 [place] (CURRENT) [facility] USE OF INC OTHER MEDICATIONS 2724 OTHER AND 05-23-2013 [place] UNSPECIFIED [facility] P HYPERLIPIDE OSMANY 5180 PULMONARY 05-23-2013 [place] COLLAPSE [facility]ICAL [facility] ASS 30614 ACUTE 05-08-2013 [facility] FOLLICULAR JAM CONJUNCTIVI TIS 81935 CONTACT AND 05-08-2013 [facility] ALLERGIC JAM DERMATITIS OF EYELID 30656 VITREOUS 05-08-2013 [facility] DEGENERATIO JAM N 3688 OTHER 04-16-2013 [facility] SPECIFIED [facility]Y [facility]ISUAL [facility] [place] DISTURBANCE S 7820 DISTURBANCE 04-16-2013 [facility] OF SKIN NEUROLOGY SENSATION [facility] [place] 1101 DERMATOPHYT 04-11-2013 [facility] BUR[facility] OSIS OF NAIL 10320 ATHEROSCLER 04-11-2013 [facility] OSIS [place] ART EXTREMITIES UNSPEC 7011 ACQUIRED 04-11-2013 [facility] BURR[facility] KERATODERMA 7295 PAIN IN 04-11-2013 [facility] B[facility] SOFT TISSUES OF LIMB 90838 SPONDYLOSIS 03-19-2013 [place] UNSPEC MEDICAL SITE W/O IMAGING ASS MENTION MYELOPATHY 7238 OTHER 03-19-2013 [place] SYNDROMES MEDICAL AFFECTING IMAGING ASS CERVICAL REGION 19613 DIAB W/O 02-13-2013 [facility] COMP TYPE [facility] II/UNS NOT INC STATED UNCNTRL 73787 BARRETTS 02-13-2013 [facility] ESOPHAGUS SUNITHA & DUBILIER 7871 HEARTBURN 02-13-2013 [place] [facility] INC 12699 ONYCHIA AND 02-06-2013 [facility] PARONYCHIA AND ANKLE OF TOE CENTER 7030 INGROWING 02-06-2013 [facility] NAIL AND ANKLE CENTER 340 MULTIPLE 01-30-2013 [place] SCLEROSIS [facility] 4149 UNSPECIFIED 01-30-2013 [facility] HEART DISEASE 96702 OTHER 01-30-2013 [place] CONVULSIONS [facility] 98337 UNSPECIFIED 01-30-2013 [place] SLEEP [facility] APNEA [facility] 97919 HEMATURIA 01-15-2013 [place] UNSPECIFIED [facility] P 22442 ABDOMINAL 01-15-2013 [facility] PAIN, AMBULANCE UNSPECIFIED SERVICE SITE 23910 PUNCTATE 01-08-2013 [facility] KER[facility] N EMERGENCY PHYSI 98318 BLEPHARITIS 01-08-2013 [facility] UNSPECIFIED V7644 SPECIAL 11-13-2012 COMBINED SCREENING PHYSICIANS MALIGNANT LA NEOPLASM OF PROSTATE 5990 URINARY 11-11-2012 COMBINED TRACT PHYSICIANS INFECTION LA SITE NOT SPECIFIED 4019 UNSPECIFIED 10-28-2012 [facility] HYPERTENSIO CLINIC N 41307 CORONARY 10-28-2012 [facility] ATHEROSCLER CARDIOLOGY OSIS [place] [facility] CORONARY ARTERY 08598 PAIN IN 10-27-2012 [facility], [place] [address] PAIN IN 10-27-2012 [facility], MOBILE UPPER ARM DIAGNOSTIC SE 7823 EDEMA 09-19-2012 BRAUDIS JAM 70751 DIVERTICULO 08-08-2012 [facility] SIS OF [facility] COLON INC 5693 HEMORRHAGE 08-08-2012 [facility] OF RECTUM [facility] AND ANUS INC V160 FM HX 08-01-2012 C ANTONETTE MALIGNANT DORIS NEOPLASM PSC GASTROINTES TINAL TRACT V7651 SPECIAL 08-01-2012 C ANTONETTE SCREENING DORIS FOR PSC MALIGNANT NEOPLASMS COLON 4139 OTHER AND 03-25-2012 HAROLDO MARTINEZ UNSPECIFIED DWI ANGINA PECTORIS 5533 DIAPHRAGMAT 03-10-2012 [place] MARTHA W/O MEDICAL MENTION IMAGING ASS OBSTRUCTION /GANGREN 5718 OTHER 03-10-2012 [place] CHRONIC MEDICAL NONALCOHOLI IMAGING ASS C LIVER DISEASE 5939 UNSPECIFIED 03-10-2012 [place] DISORDER MEDICAL OF KIDNEY IMAGING ASS AND URETER 7881 DYSURIA 03-07-2012 [place] [facility] INC 4589 UNSPECIFIED 03-04-2012 WEHRMAN III MARCY HYPOTENSION 5849 ACUTE 03-04-2012 WEHRMAN III KIDNEY MARCY FAILURE UNSPECIFIED 7224 DEGENERATIO 01-25-2012 [facility] N OF MEDICAL CERVICAL IMAGING ASS INTERVERTEB RAL DISC 7842 SWELLING 01-25-2012 WEHRMAN III MASS OR MARCY LUMP IN HEAD AND NECK 7856 ENLARGEMENT 01-25-2012 [place] OF LYMPH MEDICAL NODES IMAGING ASS 18664 DYSPHAGIA 01-25-2012 [facility] UNSPECIFIED AMBULANCE SERVICE 1122 CANDIDIASIS 01-11-2012 [facility] MARCY OF OTHER UROGENITAL SITES 66756 OTHER 01-11-2012 [facility] CANDIDIASIS [facility] OF OTHER INC SPECIFIED SITES 7912 HEMOGLOBINU 01-11-2012 MYESAH SHARON AMBULANCE SERVICE 82689 NONSPECIFIC 09-11-2011 ZE[facility] BAR ABNORMAL ELECTROCARD IOGRAM 38912 HYPERSOMNIA 07-18-2011 [facility] WITH SLEEP ERNST APNEA UNSPECIFIED 56061 ABDOMINAL 07-04-2011 [facility] PAIN, AMBULANCE PERIUMBILIC SERVICE 6010 ACUTE 07-03-2011 [facility] ARMANDO PROSTATITIS 6019 UNSPECIFIED 07-03-2011 [facility] PROSTATITIS INC 58460 ASTHMA, 06-14-2011 [facility] JEANIE UNSPECIFIED , UNSPECIFIED STATUS 98401 OTHER CHEST 06-14-2011 [facility] JEANIE PAIN 10368 OTHER 06-13-2011 [place] NONSPECIFIC MEDICAL ABNORMAL IMAGING ASS FINDING OF LUNG FIELD 81106 MORBID 05-31-2011 [place] [facility] OBESITY SERV FOUNDATIO 4778 ALLERGIC 05-31-2011 [place] [facility] RHINITIS SERV DUE TO FOUNDATIO OTHER ALLERGEN 32853 APNEA 05-31-2011 [facility] INC 7019 UNSPECIFIED 05-19-2011 [facility] PATHOLOGY HYPERTROPHI LABORATORY C&ATROPHIC CONDITION SKIN 5210 DENTAL 05-16-2011 THE IMPLANT CARIES & ORAL SURGERY C 13436 UNSPECIFIED 05-08-2011 MAR[facility] VISION BLEPHAROCON JUNCTIVITIS 7862 COUGH 04-26-2011 [employer] 97142 UNSPECIFIED 03-30-[facility] 58729 PAIN IN 03-30-2011 [facility], HAND MOBILE DIAGNOSTIC SE 6961 OTHER 03-23-2011 [facility] [place] PSORIASIS URGENT AND SIMILAR TREATMENT A DISORDERS 70887 OBESITY, 03-12-2011 [facility] [place] UNSPECIFIED URGENT TREATMENT A 80615 INSOMNIA 03-12-2011 [facility] [place] UNSPECIFIED URGENT TREATMENT A 514 PULMONARY 03-02-2011 [facility] CONGESTION MOBILE AND DIAGNOSTIC HYPOSTASIS SE 7242 LUMBAGO 02-25-2011 [facility] [place] URGENT TREATMENT A 7245 UNSPECIFIED 02-10-2011 [facility] V771 SCREENING 02-10-2011 [facility] PRACT [facility] DIABETES OF [place] PS MELLITUS 5968 OTHER 12-28-2010 [facility] [place] SPECIFIED RADIOLOGY DISORDERS OF BLADDER 25149 DIARRHEA 12-28-2010 [facility] M [...] 0 RE 34 IN 94 17 17 UT G [address] AR AE US MA L CY S 0. 5% LL C EY E DR PS TR 45 01 10 0 85 10 ME 15 GA Ac OL 80 -1 -1 0. D 13 IN ti AM 20 4- 6- 00 CA 30 EY ve IN 35 20 20 0 RE 35 E 65 17 17 UT SA 3 PH CH LI AR AE CY MA L LA CY S TE LL 10 C % CR EA M MA 00 06 10 0 30 30 ME 15 GA Ac GN 60 -2 -1 0. D 11 IN ti ES 30 1- 4- 00 CA 55 EY ve IU 20 20 20 0 RE 26 M 92 17 17 UT OX 2 PH CH ID AR AE E MA L 40 CY S 0 MG LL C TA BL ET SM 49 10 10 0 29 1 ME 15 GA Ac 34 -0 -1 60 D 11 IN ti MA 80 6- 1- .0 CA 02 EY ve GN 69 20 20 00 RE 11 ES 64 17 17 UT IU 9 PH CH M AR AE CI MA L TR CY S AT E LL SO C BRYAN TI ON ST 00 03 10 0 30 30 ME 15 GA Ac OO 53 -1 -0 0. D 04 IN ti L 61 9- 2- 00 CA 39 EY ve SO 06 20 20 0 RE 09 FT 41 17 17 UT EN 0 PH CH ER AR AE MA L 25 CY S 0 MG LL C SO FT GE L LO 00 03 10 0 30 30 ME 15 GA Ac RA 78 -1 -0 0. D 04 IN ti TA 15 9- 2- 00 CA 39 EY ve DI 07 20 20 0 RE 10 NE 70 17 17 UT 1 PH CH 10 AR AE MA L MG CY S TA LL BL C ET BRYAN 00 03 09 0 30 7 ME 15 GA Ac BR 90 -1 -2 0. D 04 IN ti IC 46 8- 9- 00 CA 01 EY ve AT 32 20 20 0 RE 54 IN 94 17 17 UT G [address] AR AE US MA L CY S 0. 5% LL C EY E DR PS 00 03 09 0 30 30 ME 15 GA Ac PI 90 -1 -2 0. D 00 IN ti RI 46 9- 6- 00 CA 60 EY ve N 28 20 20 0 RE 67 81 88 17 17 UT 9 PH CH MG AR AE MA L CH CY S EW AB LL LE C TA BL ET MA 00 06 09 0 30 30 ME 14 GA Ac GN 60 -2 -1 0. D 94 IN ti ES 30 1- 5- 00 CA 75 EY ve IU 20 20 20 0 RE 67 M 92 17 17 UT OX 2 PH CH ID AR AE E MA L 40 CY S 0 MG LL C TA BL ET AC 00 03 09 0 35 15 ME 14 GA Ac ID 90 -0 -1 50 D 96 IN ti 47 4- 5- .0 CA 35 EY ve GO 72 20 20 00 RE 99 NE 71 17 17 UT 4 PH CH AN AR AE TA MA L CI CY S D LI LL QU C ID ST 00 03 09 0 30 30 ME 14 GA Ac OO 53 -1 -0 0. D 87 IN ti L 61 9- 2- 00 CA 29 EY ve SO 06 20 20 0 RE 28 FT 41 17 17 UT EN 0 PH CH ER AR AE MA L 25 CY S 0 MG LL C SO FT GE L LO 00 03 09 0 30 30 ME 14 GA Ac RA 78 -1 -0 0. D 87 IN ti TA 15 9- 2- 00 CA 29 EY ve DI 07 20 20 0 RE 29 NE 70 17 17 UT 1 PH CH 10 AR AE MA L MG CY S TA LL BL C ET 00 03 08 0 30 30 ME 14 GA Ac PI 90 -1 -2 0. D 83 IN ti RI 46 9- 8- 00 CA 86 EY ve N 28 20 20 0 RE 95 81 88 17 17 UT 9 PH CH MG AR AE MA L CH CY S EW AB LL LE C TA BL ET BRYAN 00 03 08 0 30 7 ME 14 GA Ac BR 90 -1 -2 0. D 82 IN ti IC 46 8- 4- 00 CA 01 EY ve AT 32 20 20 0 RE 42 IN 94 17 17 UT G [address] AR AE US MA L CY S 0. 5% LL C EY E DR PS BRYAN 00 03 08 0 30 7 ME 14 GA Ac BR 90 -1 -1 0. D 79 IN ti IC 46 8- 8- 00 CA 87 EY ve AT 32 20 20 0 RE 03 IN 94 17 17 UT G [address] AR AE US MA L CY S 0. 5% LL C EY E DR JORDON ARCE 00 06 08 0 30 30 ME 14 GA Ac GN 60 -2 -1 0. D 77 IN ti ES 30 1- 6- 00 CA 18 EY ve IU 20 20 20 0 RE 99 M 92 17 17 UT OX 2 PH CH ID AR AE E MA L 40 CY S 0 MG LL C TA BL ET ST 00 03 08 0 30 30 ME 14 GA Ac OO 53 -1 -0 0. D 70 IN ti L 61 9- 4- 00 CA 77 EY ve SO 06 20 20 0 RE 91 FT 41 17 17 UT EN 0 PH CH ER AR AE MA L 25 CY S 0 MG LL C SO FT GE L LO 00 03 08 0 30 30 ME 14 GA Ac RA 78 -1 -0 0. D 70 IN ti TA 15 9- 4- 00 CA 77 EY ve DI 07 20 20 0 RE 92 NE 70 17 17 UT 1 PH CH 10 AR AE MA L MG CY S TA LL BL C ET 00 03 07 0 30 30 ME 14 GA Ac PI 90 -1 -3 0. D 69 IN ti RI 46 9- 1- 00 CA 21 EY ve N 28 20 20 0 RE 07 81 88 17 17 UT 9 PH CH MG AR AE MA L CH CY S EW AB LL LE C TA BL ET BRYAN 00 03 07 0 30 7 ME 14 GA Ac BR 90 -1 -2 0. D 68 IN ti IC 46 8- 9- 00 CA 73 EY ve AT 32 20 20 0 RE 52 IN 94 17 17 UT G [address] AR AE US MA L CY S 0. 5% LL C EY E DR JORDON ARCE 00 06 07 0 30 30 ME 14 GA Ac GN 60 -2 -1 0. D 63 IN ti ES 30 1- 9- 00 CA 33 EY ve IU 20 20 20 0 RE 43 M 92 17 17 UT OX 2 PH CH ID AR AE E MA L 40 CY S 0 MG LL C TA BL ET AC 00 03 07 0 35 15 ME 14 GA Ac ID 90 -0 -1 50 D 62 IN ti 47 4- 8- .0 CA 01 EY ve GO 72 20 20 00 RE 68 NE 71 17 17 UT 4 PH CH AN AR AE TA MA L CI CY S D LI LL QU C ID BRYAN 00 03 07 0 30 7 ME 14 GA Ac BR 90 -1 -1 0. D 60 IN ti IC 46 8- 5- 00 CA 60 EY ve AT 32 20 20 0 RE 69 IN 94 17 17 UT G [address] AR AE US MA L CY S 0. 5% LL C EY E DR PS ST 00 03 07 0 30 30 ME 14 GA Ac OO 53 -1 -0 0. D 53 IN ti L 61 9- 6- 00 CA 43 EY ve SO 06 20 20 0 RE 01 FT 41 17 17 UT EN 0 PH CH ER AR AE MA L 25 CY S 0 MG LL C SO FT GE L LO 00 03 07 0 30 30 ME 14 GA Ac RA 78 -1 -0 0. D 53 IN ti TA 15 9- 6- 00 CA 43 EY ve DI 07 20 20 0 RE 02 NE 70 17 17 UT 1 PH CH 10 AR AE MA L MG CY S TA LL BL C ET 00 03 07 0 30 30 ME 14 GA Ac PI 90 -1 -0 0. D 50 IN ti RI 46 9- 3- 00 CA 60 EY ve N 28 20 20 0 RE 43 81 88 17 17 UT 9 PH CH MG AR AE MA L CH CY S EW AB LL LE C TA BL ET BRYAN 00 03 06 0 30 7 ME 14 GA Ac BR 90 -1 -3 0. D 50 IN ti IC 46 8- 0- 00 CA 79 EY ve AT 32 20 20 0 RE 90 IN 94 17 17 UT G [address] AR AE US MA L CY S 0. 5% LL C EY E PS BRYAN 00 03 06 0 30 7 ME 14 GA Ac BR 90 -1 -1 0. D 42 IN ti IC 46 8- 7- 00 CA 66 EY ve AT 32 20 20 0 RE 58 IN 94 17 17 UT G [address] AR AE US MA L CY S 0. 5% LL C EY E PS AC 00 03 06 0 35 15 ME 14 GA Ac ID 90 -0 -1 50 D 41 IN ti 47 4- 6- .0 CA 27 EY ve GO 72 20 20 00 RE 46 NE 71 17 17 UT 4 PH CH AN AR AE TA MA L CI CY S D LI LL QU C ID LO 00 03 06 0 30 30 ME 14 GA Ac RA 78 -1 -0 0. D 33 IN ti TA 15 9- 7- 00 CA 82 EY ve DI 07 20 20 0 RE 42 NE 70 17 17 UT 1 PH CH 10 AR AE MA L MG CY S TA LL BL C ET ST 00 03 06 0 30 30 ME 14 GA Ac OO 53 -1 -0 0. D 33 IN ti L 61 9- 7- 00 CA 82 EY ve SO 06 20 20 0 RE 41 FT 41 17 17 UT EN 0 PH CH ER AR AE MA L 25 CY S 0 MG LL C SO FT GE L RO 00 03 06 0 47 10 ME 14 GA Ac BA 90 -1 -0 30 D 33 IN ti FE 40 9- 5- .0 CA 30 EY ve N 06 20 20 00 RE 41 10 11 17 17 UT 0 6 PH CH MG AR AE /5 MA L CY S ML LL SY C RU P 00 03 06 0 30 30 ME 14 GA Ac PI 90 -1 -0 0. D 31 IN ti RI 46 9- 3- 00 CA 43 EY ve N 28 20 20 0 RE 67 81 88 17 17 UT 9 PH CH MG AR AE MA L CH CY S EW AB LL LE C TA BL ET MA 00 03 06 0 30 5 ME 14 GA Ac PA 90 -1 -0 0. D 31 IN ti P 41 9- 2- 00 CA 57 EY ve 50 98 20 20 0 RE 45 0 86 17 17 UT MG 1 PH CH AR AE TA MA L BL CY S ET LL C MA 00 12 05 0 30 30 ME 14 GA Ac GN 60 -0 -2 0. D 24 IN ti ES 30 3- 4- 00 CA 08 EY ve IU 20 20 20 0 RE 98 M 92 16 17 UT OX 2 PH CH ID AR AE E MA L 40 CY S 0 MG LL C TA BL ET BRYAN 00 03 05 0 50 7 ME 14 GA Ac BR 90 -1 -2 0. D 23 IN ti IC 46 8- 2- 00 CA 59 EY ve AT 32 20 20 0 RE 61 IN 95 17 17 UT G [address] AR AE US MA L CY S 0. 5% LL C EY E DR PS AC 00 03 05 0 35 15 ME 14 GA Ac ID 90 -0 -1 50 D 22 IN ti 47 4- 8- .0 CA 17 EY ve GO 72 20 20 00 RE 35 NE 71 17 17 UT 4 PH CH AN AR AE TA MA L CI CY S D LI LL QU C ID ST 00 03 05 0 30 30 ME 14 GA Ac OO 53 -1 -1 0. D 17 IN ti L 61 9- 0- 00 CA 23 EY ve SO 06 20 20 0 RE 20 FT 41 17 17 UT EN 0 PH CH ER AR AE MA L 25 CY S 0 MG LL C SO FT GE L LO 00 03 05 0 30 30 ME 14 GA Ac RA 78 -1 -1 0. D 17 IN ti TA 15 9- 0- 00 CA 23 EY ve DI 07 20 20 0 RE 21 NE 70 17 17 UT 1 PH CH 10 AR AE MA L MG CY S TA LL BL C ET 00 03 05 0 30 30 ME 14 GA Ac PI 90 -1 -0 0. D 14 IN ti RI 46 9- 5- 00 CA 96 EY ve N 28 20 20 0 RE 45 81 88 17 17 UT 9 PH CH MG AR AE MA L CH CY S EW AB LL LE C TA BL ET BRYAN 00 03 05 0 30 7 ME 14 GA Ac BR 90 -1 -0 0. D 15 IN ti IC 46 8- 5- 00 CA 88 EY ve AT 32 20 20 0 RE 83 IN 94 17 17 UT G [address] AR AE US MA L CY S 0. 5% LL C EY E DR PS MA 00 12 04 0 30 30 ME 14 GA Ac GN 60 -0 -2 0. D 09 IN ti ES 30 3- 6- 00 CA 84 EY ve IU 20 20 20 0 RE 88 M 92 16 17 UT OX 2 PH CH ID AR AE [...] LL 10 C % CR EA M LO 00 03 04 0 30 30 ME 14 AR Ac RA 78 -1 -1 0. D 03 NO ti TA 15 9- 2- 00 CA 07 LD ve DI 07 20 20 0 RE 48 NE 70 17 17 RI 1 PH CH 10 AR AR MA D MG CY W TA LL BL C ET ST 00 03 04 0 30 30 ME 14 AR Ac OO 53 -1 -1 0. D 03 NO ti L 61 9- 2- 00 CA 07 LD ve SO 06 20 20 0 RE 47 FT 41 17 17 RI EN 0 PH CH ER AR AR MA D 25 CY W 0 MG LL C SO FT GE L BRYAN 00 03 04 0 30 7 [...] W 0. 5% LL C EY E PS ST 00 08 03 0 30 [...] C TA BL ET TR 45 01 01 0 85 10 ME 13 AR Ac OL 80 -1 -1 0. D 60 NO ti AM 20 4- 4- 00 CA 33 LD ve IN 35 20 20 0 RE 38 E 65 17 17 RI SA 3 PH CH LI AR AR CY MA D LA CY W TE LL 10 C % CR EA M LO 00 08 01 0 30 30 [...] MG LL C SO FT GE L MA 00 12 12 0 30 30 [...] AR AR ME MA D CY W OR OT LL EC C T PA ST E RE 53 11 11 0 11 5 ME 13 AR Ac ME 32 -2 -2 30 D 36 NO ti DY 90 8- 8- .0 CA 88 LD ve 16 20 20 00 RE 63 CA 54 16 16 RI LA 4 PH CH ZI AR AR ME MA D CY W OR OT LL EC C T PA ST [...] AR AR ME MA D CY W OR OT LL EC C T PA ST E LO 00 08 10 0 30 30 ME 13 AR Ac RA 78 -2 -1 0. D 14 NO ti TA 15 2- 9- 00 CA 90 LD ve DI 07 20 20 0 RE 77 NE 70 16 16 RI 1 PH CH 10 AR AR MA D MG CY W TA LL BL C ET 63 08 10 0 30 30 ME [...] MG LL C SO FT GE L RE 53 08 09 0 11 5 ME 13 AR Ac ME 32 -2 -2 30 D 03 NO ti DY 90 2- 8- .0 CA 69 LD ve 16 20 20 00 RE 91 CA 44 16 16 RI LA 4 PH CH ZI AR AR ME MA D CY W OR OT LL EC C T PA ST [...] AR AR ME MA D CY W OR OT LL EC C T PA ST [...] AR AR ME MA D CY W OR OT LL EC C T PA ST [...] TA CY W BL ET LL C OR 37 08 10 3 30 30 ME [...] TA CY W BL ET LL C OR 37 08 09 3 30 30 ME [...] D BL CY W ET LL C OR 37 08 08 3 30 30 ME [...] Procedures Procedure DOS Code Location Performer Comment URNLS DIP [id number] STICK/TAB ASSOCIATE ASSOCIATE LET S S REAGENT AUTO MICROSCOP Y ALBUMIN [address] MICROALBU ASSOCIATE ASSOCIATE MIN S S QUANTIATI VE TRAVEL [address] NEC MASTER CONTROL TECHNICIAN ASSOCIATE SPEC; S S PRORAT ACTL MILE J CARLOS V G0471 [address] VP CONSTRUCTION/URN ASSOCIATE ASSOCIATE MIREILLE CATH S S IND SNF/LAB BHALF DATASTAGE CONSULTANT LIPID [address] HEALTH ASSOCIATE ASSOCIATE S S J CARLOS V G0471 [address] HEALTH VP CONSTRUCTION/URN ASSOCIATE ASSOCIATE SMFrancisco CATH S S IND SNF/LAB BHALF DATASTAGE CONSULTANT TRAVEL [address] NEC MASTER CONTROL TECHNICIAN ASSOCIATE SPEC; S S PRORAT ACTL MILE BLOOD [address] [place] [address] HEALTH HEALTH COMPLETE ASSOCIATE ASSOCIATE AUTO&AUTO S S DIFRNTL WBC BLOOD [address] HEMATOCRI ASSOCIATE ASSOCIATE T S S BLOOD [address] HEMOGLOBI ASSOCIATE ASSOCIATE N S S TRAVEL [address] NEC MASTER CONTROL TECHNICIAN ASSOCIATE SPEC; S S PRORAT ACTL MILE J CARLOS V G0471 [address] HEALTH VP CONSTRUCTION/URN ASSOCIATE ASSOCIATE SMP CATH S S IND SNF/LAB BHALF DATASTAGE CONSULTANT COLOREC G0328 LAURA GALLO SCR; 7 [facility] FOB TST INC INC IMMUNO 1-3 SIMULTANE OUS URNLS DIP 27875 [facility] STICK/TAB INC INC LET REAGENT AUTO MICROSCOP Y O2 CONC 1 E1390 [facility] [place] [facility] HEALTH[facility] 85%/>02 E E CONC AT PRSC FLW RATE BLOOD [address] HEALTH COMPLETE ASSOCIATE ASSOCIATE AUTO&AUTO S S DIFRNTL WBC TRAVEL [address] NEC MASTER CONTROL TECHNICIAN ASSOCIATE SPEC; S S PRORAT ACTL MILE J CARLOS V G0471 [address] VP CONSTRUCTION/URN ASSOCIATE ASSOCIATE MIREILLE CATH S S IND SNF/LAB BHALF DATASTAGE CONSULTANT PRTBLE E0434 MARLYN CLINE LQD O2 7 [facility] SYS RENT; E E RESRVOR HUMIDFR FLWMTR J CARLOS V G0471 [address] VP CONSTRUCTION/URN ASSOCIATE ASSOCIATE MIREILLE CATH S S IND SNF/LAB BHALF DATASTAGE CONSULTANT TRAVEL [address] NEC MASTER CONTROL TECHNICIAN ASSOCIATE SPEC; S S PRORAT ACTL MILE BLOOD [address] COMPLETE ASSOCIATE ASSOCIATE AUTO&AUTO S S DIFRNTL WBC CT SOFT 16516 [facility] TISSUE 7 MEDICAL NECK W/O IMAGING CONTRAST ASS MATERIAL CT THORAX 70675 NICKI ORDONEZ W/O 7 MEDICAL CONTRAST IMAGING MATERIAL ASS HEMOGLOBI 54563 TRINIDADIAN TRINIDADIAN [address] [place] [address] [place] [place] [address] TRINIDADIAN TRINIDADIAN THYROID [address] [place] [address] STIMULATI ASSOCIATE ASSOCIATE FELIX Galindo S HORMONE TSH TRAVEL [address] NEC MASTER CONTROL TECHNICIAN ASSOCIATE SPEC; S S PRORAT ACTL MILE J CARLOS V G04[address] HEALTH VP CONSTRUCTION/URN ASSOCIATE ASSOCIATE MIREILLE SANCHEZ S S IND SNF/LAB BHALF DATASTAGE CONSULTANT URNLS DIP [address] LET RGNT P NON-AUTO W/O MICRSCP O2 CONC 1 E1390 [place] [address] HEALTHCAR HEALTHCAR 85%/>02 E E CONC AT PRSC FLW RATE O2 CONC 1 E1390 [place] [address] HEALTHCAR HEALTHCAR 85%/>02 E E CONC AT PRSC FLW RATE DEBRIDEME 12729 SPECIAL SKRIP JR. NT NAIL 7 CARE ANY PODIATRY METHOD OF YAMIL 6/> J CARLOS V G0471 [address] HEALTH VP CONSTRUCTION/URN ASSOCIATE ASSOCIATE MIREILLE SANCHEZ S S IND SNF/LAB BHALF DATASTAGE CONSULTANT TRAVEL [address] NEC MASTER CONTROL TECHNICIAN ASSOCIATE SPEC; S S PRORAT ACTL MILE LIPID 40238 TRINIDADIAN [place] [address] HEALTH HEALTH ASSOCIATE ASSOCIATE S S NONEMERGE A0130 FEDERATED FEDERATED NCY 7 TRANS TRANSPORT TRANSPORT SERVBLUEG ATION: ATION SER TOSHA WHEELHOMAI R VAN RADIOLOGI 08882 RONNELL REYNAGA C 7 [facility] EXAMINATI ON TIBIA & FIBULA 2 VIEWS TRANS R0070 RONNELL REYNAGA PRTBL 7 [facility] X-RAY EQP&PERS RICHMOND/NRS RICHMOND-TRIP 1 PT SET-UP Q0092 RONNELL REYNAGA PORTABLE 7 [facility] X-RAY EQUIPMENT RADIOLOGI 41481 [facility] LLC EXAMINATI ON KNEE 1/2 VIEWS RADIOLOGI 86217 [facility] LLC EXAMINATI ON FEMUR MINIMUM 2 VIEWS J CARLOS V G0471 TRINIDADIAN TRINIDADIAN BLD 7 HEALTH HEALTH VP CONSTRUCTION/URN ASSOCIATE ASSOCIATE MIREILLE CATH S S IND SNF/LAB BHALF DATASTAGE CONSULTANT TRAVEL 1 P9603 TRINIDADIAN TRINIDADIAN [facility] MED 7 HEALTH HEALTH NEC MASTER CONTROL TECHNICIAN ASSOCIATE SPEC; S S PRORAT ACTL MILE URNLS DIP 42634 LAURA SANCHEZ 7 [facility] STICK/TAB INC INC LET REAGENT AUTO MICROSCOP Y BLOOD 04262 TRINIDADIAN TRINIDADIAN COUNT 7 HEALTH HEALTH COMPLETE ASSOCIATE ASSOCIATE AUTO&AUTO S S DIFRNTL WBC COMPREHEN 90471 TRINIDADIAN TRINIDADIAN SIVE 7 HEALTH HEALTH METABOLIC ASSOCIATE ASSOCIATE PANEL S S SET-UP Q0092 [facility] PORTABLE 7 LLC LLC X-RAY EQUIPMENT RADIOLOGI 26067 [facility] LLC EXAMINATI ON CHEST SINGLE VIEW FRONTAL TRANS R0070 [facility] PRTBL 7 LLC LLC X-RAY EQP&PERS RICHMOND/NRS RICHMOND-TRIP 1 PT RADEX 37563 [place] ORDONEZ WRIST 7 MEDICAL COMPLETE IMAGING MINIMUM 3 ASS VIEWS O2 CONC 1 E1390 MAR[facility]N CLINE KIT [facility] 7 HEALTHCAR HEALTHCAR 85%/>02 E E CONC AT PRS FLW RATE RADEX 28503 [facility] WRIST 7 LLC LLC COMPLETE MINIMUM 3 VIEWS RADEX 23377 [facility] FOREARM 2 7 LLC LLC VIEWS TRANS R0070 [facility] PRTBL 7 LLC LLC X-RAY EQP&PERS RICHMOND/NRS RICHMOND-TRIP 1 PT SET-UP Q0092 [facility] PORTABLE 7 LLC LLC X-RAY EQUIPMENT NONEMERGE A0130 FEDERATED FEDERATED NCY 7 TRANS TRANSPORT TRANSPORT SERVBLUEG ATION: ATION SER TOSHA RAMIREZ NONEMERGE A0130 FEDERATED FEDERATED NCY 7 TRANS TRANSPORT TRANSPORT SERVBLUEG ATION: ATION SER TOSHA KAVITHA Dobson VAN TRAVEL 1 P9603 [place] [address] HEALTH HEALTH NEC MASTER CONTROL TECHNICIAN ASSOCIATE SPEC; S S PRORAT ACTL MILE J CARLOS V G0471 [facility] BLD HEALTH HEALTH VP CONSTRUCTION/URN ASSOCIATE ASSOCIATE SMP CATH S S IND SNF/LAB BHALF DATASTAGE CONSULTANT NATRIURET [address] [place] [address] HEALTH HEALTH PEPTIDE ASSOCIATE ASSOCIATE S S ECG 92355 LAURA SANCHEZ ROUTINE 7 [facility] ECG INC INC W/LEAST 12 LDS TRCG ONLY W/O I&R NONEMERGE A0130 FEDERATED FEDERATED NCY 7 TRANS TRANSPORT TRANSPORT SERVBLUEG ATION: ATION SER TOSHA KAVITHA Dobson VAN ECG 21701 [facility] MEREDITH ROUTINE 7 PHYSICIAN ECG S GROUP W/LEAST 12 LDS I&R ONLY CULTURE 20467 [facility] BACTERIAL HEALTH HEALTH ASSOCIATE ASSOCIATE QUANTTATI Josie Galindo VE COLONY COUNT URINE URNLS DIP [address] STICK/TAB ASSOCIATE ASSOCIATE LET S S REAGENT AUTO MICROSCOP Y NONEMERGE A0130 FEDERATED FEDERATED NCY 7 TRANS TRANSPORT TRANSPORT SERVBLUEG ATION: ATION SER TOSHA Dobson VAN O2 CONC 1 E1390 [place] [address] [facility] HEALTH[facility] 85%/>02 E E CONC AT [facility] FLW RATE GAS 60799 LAURA SANCHEZ DILUT/WAS 7 [facility] HOUT LUNG INC INC VOL W/WO DISTRIB VENT&[place] [address] LAURA SANCHEZ DIFFUSING 7 [facility] CAPACITY INC INC NONEMERGE A0130 FEDERATED FEDERATED NCY 7 TRANS TRANSPORT TRANSPORT SERVBLUEG ATION: ATION SER TOSHA Dobson VAN BRNCDILAT 01757 LAURA SANCHEZ RSPSE 7 [facility] SPMTRY INC INC PRE&POST- BRNCDILAT ADMN PRESSURIZ 70738 LAURA SANCHEZ ED/NONPRE 7 [facility] SSURIZED INC INC INHALATIO N TREATMENT CULTURE 94818 LAURA SANCHEZ BCT 7 [facility] ISOL&PRSM INC INC PTV ID ISOLATE EA URINE CULTURE 37311 LAURA SANCHEZ BACTERIAL 7 [facility] INC INC QUANTTATI VE COLONY COUNT URINE NONEMERGE A0130 FEDERATED FEDERATED NCY 7 TRANS TRANSPORT TRANSPORT SERVBLUEG ATION: ATION SER TOSHA Dobson VAN SUSCEPTIB 83319 LAURA SANCHEZ LTY STDY 7 [facility] ANTIMICRB INC INC IAL MICRO/AGA R DILUTJ URNLS DIP 66659 LAURA LEAL 7 [facility] STICK/[facility] LET RGNT P NON-AUTO W/O MICRSCP O2 CONC 1 E1390 [facility] 7 HEALTHCAR HEALTHCAR 85%/>02 E E CONC AT [facility] FLW RATE NONEMERGE A0130 FEDERATED FEDERATED NCY 7 TRANS TRANSPORT TRANSPORT SERVBLUEG ATION: ATION SER TOSHA Dobson VAN RADEX 66561 LAURA SANCHEZ SHOULDER 7 [facility] COMPLETE INC INC MINIMUM 2 VIEWS FOR DIAB A5512 [facility] [place] ONLY MX 7 MEDICAL MEDICAL DNSITY SUPPLY SUPPLY INSRT DIR LLC LLC FORMD PRFAB EA DIAB ONLY A5500 [place] FIT CSTM 7 MEDICAL MEDICAL PREP&SPL SUPPLY SUPPLY SHOE MX LLC LLC DNSITY INSRT URNLS DIP 60138 LAURA SANCHEZ 7 [facility] STICK/TAB INC INC LET REAGENT AUTO MICROSCOP Y DEBRIDEME 93641 SPECIAL SKRIP JR. NT NAIL 7 CARE ANY PODIATRY METHOD OF YAMIL 6/> NONEMERGE A0130 FEDERATED FEDERATED NCY 7 TRANS TRANSPORT TRANSPORT SERVBLUEG ATION: ATION SER TOSHA Dobson VAN RADEX 12151 [facility] SHOULDER 7 [facility] COMPLETE MINIMUM 2 VIEWS SET-UP Q0092 [facility] PORTABLE [address] [facility] LLC X-RAY EQUIPMENT TRANS R0070 [facility] PRTBL 7 LLC LLC X-RAY EQP&PERS RICHMOND/NRS RICHMOND-TRIP 1 PT TRANS R0070 [facility] PRTBL 7 LLC LLC X-RAY EQP&PERS RICHMOND/NRS RICHMOND-TRIP 1 PT RADIOLOGI 26175 [facility] C 7 [facility] LLC EXAMINATI ON CHEST SINGLE VIEW FRONTAL SET-UP Q0092 [facility] PORTABLE 7 LLC LLC X-RAY EQUIPMENT SET-UP Q0092 [facility] PORTABLE 7 LLC LLC X-RAY EQUIPMENT TRANS R0075 [facility] PRTBL 7 LLC LLC XRAY EQP&PERS RICHMOND/NRS RICHMOND-TRIP> 1 PT RADIOLOGI 68579 [facility] C 7 LLC LLC EXAMINATI ON CHEST SINGLE VIEW FRONTAL O2 CONC 1 E1390 EDGER[facility]ALIAT [facility] 7 HEALTHCAR HEALTHCAR 85%/>02 E E CONC AT PRS FLW RATE BLOOD 23539 TRINIDADIAN TRINIDADIAN COUNT 7 HEALTH HEALTH COMPLETE ASSOCIATE ASSOCIATE AUTO&AUTO S S DIFRNTL WBC TRAVEL 1 P9603 TRINIDADIAN TRINIDADIAN [facility] MED 7 HEALTH HEALTH NEC MASTER CONTROL TECHNICIAN ASSOCIATE SPEC; S S PRORAT ACTL MILE J CARLOS V G0471 TRINIDADIAN TRINIDADIAN BLD 7 HEALTH HEALTH VP CONSTRUCTION/URN ASSOCIATE ASSOCIATE SMP CATH S S IND SNF/LAB BHALF DATASTAGE CONSULTANT BASIC 85912 TRINIDADIAN TRINIDADIAN METABOLIC 7 HEALTH HEALTH PANEL ASSOCIATE ASSOCIATE CALCIUM S S TOTAL ECG 30382 LAURA SANCHEZ ROUTINE 7 [facility] ECG INC INC W/LEAST 12 LDS TRCG ONLY W/O I&R ECG 70941 [facility] ROUTINE 7 PHYSICIAN ECG S GROUP W/LEAST 12 LDS I&R ONLY NONEMERGE A0130 FEDERATED FEDERATED NCY 7 TRANS TRANSPORT TRANSPORT SERVBLUEG ATION: ATION SER TOSHA KAVITHA R VAN O2 CONC 1 E1390 [facility] HEALTHCAR HEALTHCAR 85%/>02 E E CONC AT PRS FLW RATE AMBULANCE A0428 [facility] SERVICE 7 AMBULANCE AMBULANCE BLS SERVICE SERVICE NONEMERGE NCY TRANSPORT GROUND A0425 [facility] MILEAGE 7 AMBULANCE AMBULANCE PER SERVICE SERVICE STATUTE MILE GROUND A0425 [facility] MILEAGE 7 AMBULANCE AMBULANCE PER SERVICE SERVICE STATUTE MILE ECG 89481 LAURA [facility] ROUTINE 7 [facility] W/LEAST P 12 LDS I&R ONLY AMB A0427 [facility] SERVICE 7 AMBULANCE AMBULANCE ALS SERVICE SERVICE EMERGENCY TRANSPORT LEVEL 1 RADIOLOGI 91119 [place] ORDONE[facility] C 7 MEDICAL EXAMINATI IMAGING ON CHEST ASS SINGLE VIEW FRONTAL ECG 20931 [place] ROUTINE 7 HEALTHCAR HEALTHCAR ECG E E W/LEAST [facility] 12 [facility] TRCG ONLY W/O I&R VISUAL 44330 [place] OND[place] FIELD XM 7 MEDICAL UNI/BI SERV W/INTERP FOUNDATIO EXTENDED N EXAM HOSPITAL G0463 [facility] OUTPATIEN 7 HEALTHCAR HEALTHCAR T CLIN E E VISIT [facility] ASSESS & MGMT PT NONEMERGE A0130 FEDERATED FEDERATED NCY 7 TRANS TRANSPORT TRANSPORT SERVBLUEG ATION: ATION SER TOSHA KAVITHA Dobson VAN DEBRIDEME 35498 SPECIAL VICTORIAN[facility] [place] NT NAIL 7 CARE ANY PODIATRY METHOD OF YAMIL 6/> O2 CONC 1 E1390 [facility] [place] 7 HEALTHCAR HEALTHCAR 85%/>02 E E CONC AT PRSC FLW RATE O2 CONC 1 E1390 [facility] [place] 6 HEALTHCAR HEALTHCAR 85%/>02 E E CONC AT PRSC FLW RATE POLYSOM 93796 LAURA SANCHEZ 6/>YRS 6 [facility] H[facility] SLEEP INC INC W/CPAP 4/> ADDL KATARINA ATTND NONEMERG A0120 FEDERATED FEDERATED TRNSPRT: 6 MINI-BUS TRANSPORT TRANSPORT MTN ATION SER ATION SER AREA/OTH SYS O2 CONC 1 E1390 [place] 6 HEALTHCAR HEALTHCAR 85%/>02 E E CONC AT PRSC FLW RATE TRAVEL [address] MED 6 HEALTH HEALTH NEC MASTER CONTROL TECHNICIAN ASSOCIATE SPEC; S S PRORAT ACTL MILE J CARLOS V G0471 TRINIDADIAN TRINIDADIAN BLD HEALTH HEALTH VP CONSTRUCTION/URN ASSOCIATE ASSOCIATE SMP CATH S S IND SNF/LAB BHALF DATASTAGE CONSULTANT BASIC 83654 TRINIDADIAN TRINIDADIAN METABOLIC HEALTH HEALTH PANEL ASSOCIATE ASSOCIATE CALCIUM S S TOTAL DEBRIDEME 27450 SPECIAL SKRIP JR. NT NAIL 6 CARE SELVIN ANY PODIATRY METHOD OF YAMIL 6/> O2 CONC 1 E1390 [place] [address] HEALTHCAR HEALTHCAR 85%/>02 E E CONC AT PRSC FLW RATE ECG 17510 LAURA LAURA ROUTINE 6 [facility] ECG INC INC W/LEAST 12 LDS TRCG ONLY W/O I&R ECG 61444 [facility] ROUTINE 6 PHYSICIAN MAT ECG S GROUP W/LEAST 12 LDS I&R ONLY ECG 88619 LAURA ZARCO ROUTINE 6 [facility] W/LEAST P 12 LDS I&R ONLY RADIOLOGI 84382 [facility] C EXAM 6 MEDICAL KIERAN CHEST 2 IMAGING VIEWS ASS FRONTAL&L ATERAL O2 CONC 1 E1390 [place] [address] HEALTHCAR HEALTHCAR 85%/>02 E E CONC AT PRSC FLW RATE RADEX 63064 [facility] ALL SPINE 6 MEDICAL LUMBOSACR IMAGING AL 2/3 ASS VIEWS RADEX 23168 [facility] ALL SPINE 6 MEDICAL THORACIC IMAGING 2 VIEWS ASS RADEX 23342 [facility] ALL SPINE 6 MEDICAL CERVICAL IMAGING 2 OR 3 ASS VIEWS ECG 93506 [facility] ROUTINE 6 PHYSICIAN MAT ECG S GROUP W/LEAST 12 LDS I&R ONLY NONEMERG A0120 FEDERATED FEDERATED TRNSPRT: 6 MINI-BUS TRANSPORT TRANSPORT MTN ATION SER ATION SER AREA/OT SYS NONEMERG A0120 FEDERATED FEDERATED TRNSPRT: 6 MINI-BUS TRANSPORT TRANSPORT MTN ATION SER ATION SER AREA/OT SYS ECG 85032 [facility] ROUTINE 6 PHYSICIAN MAT ECG S GROUP W/LEAST 12 LDS I&R ONLY ECG 88621 LAURA RUFFINSON ROUTINE 6 [facility] W/LEAST P 12 LDS I&R ONLY NONEMERG A0120 FEDERATED FEDERATED TRNSPRT: 6 MINI-BUS TRANSPORT TRANSPORT MTN ATION SER ATION SER AREA/OTH SYS PC C9600 MEAWFRANCES MEAWFRANCES TRNSCTH 6 W W PLCMT RX [facility] [place] [facility] MEDICAL MEDICAL STENTS; 1 CHRISTINE CA/BR PRQ [id number] [facility] TRLUML 6 PHYSICIAN MAT CORONARY S GROUP STENT W/ANGIO ONE ART/BRNCH ECG 70337 LAURA HOLCOMB ROUTINE 6 [facility] W/LEAST P 12 LDS I&R ONLY NONEMERG A0120 FEDERATED FEDERATED TRNSPRT: 6 MINI-BUS TRANSPORT TRANSPORT MTN ATION SER ATION SER [facility]/OTH SYS RADEX 54067 LAURA SANCHEZ WRIST 6 [facility] COMPLETE INC INC MINIMUM 3 VIEWS RADIOLOGI 16227 [facility] ALL C 6 MEDICAL EXAMINATI IMAGING ON CHEST ASS SINGLE VIEW FRONTAL NONEMERG A0120 FEDERATED FEDERATED TRNSPRT: 6 MINI-BUS TRANSPORT TRANSPORT MTN ATION SER ATION SER AREA/OTH SYS NONEMERG A0120 FEDERATED FEDERATED TRNSPRT: 6 MINI-BUS TRANSPORT TRANSPORT MTN ATION SER ATION SER AREA/OTH SYS RADIOLOGI 93409 [facility] ALL C 6 MEDICAL EXAMINATI [...] TRNSPRT: 6 MINI-BUS TRANSPORT TRANSPORT MTN [facility] [address] [facility] MEREDITH DISCHARGE 6 PHYSICIAN MAT DAY S GROUP MANAGEMEN T 30 MIN/< PRQ [address] [facility] MEREDITH TRLUML 6 PHYSICIAN MAT CORONARY S GROUP STENT W/ANGIO ONE ART/BRNCH PC C9600 MEADOWVIE MEADOWVIE TRNSCTH 6 W W PLCMT RX [facility] [place] IC MEDICAL MEDICAL STENTS; 1 CHRISTINE CA/BR NONEMERG A0120 FEDERATED FEDERATED TRNSPRT: 6 MINI-BUS TRANSPORT TRANSPORT MTN [facility] ECHO 88971 LAURA SANCHEZ TTHRC R-T 6 [facility] 2D INC INC W/WOM-MOD E COMPL SPEC&COLR D NONEMERG A0120 FEDERATED FEDERATED TRNSPRT: 6 MINI-BUS TRANSPORT TRANSPORT MTN [facility] NONEMERG A0120 FEDERATED FEDERATED TRNSPRT: 6 MINI-BUS TRANSPORT TRANSPORT MTN [facility] 58115 LAURA HOLCOMB ROUTINE 6 [facility] W/LEAST P 12 LDS I&R ONLY RADIOLOGI 56787 [place] ALEISHA C 6 MEDICAL KIERAN EXAMINATI IMAGING ON CHEST ASS SINGLE VIEW FRONTAL RADEX 15415 [place] BEINEKE SPINE 6 MEDICAL GILMA THORACIC [place] [address] [place] [address] [facility]BRAI 6 MEDICAL KIERAN N W/[place] [address] [facility] CERVICAL 6 MEDICAL GILMA SPINE W/O IMAGING CONTRAST ASS MATERIAL RADEX 54633 [facility] SPINE 6 MEDICAL GILMA LUMBOSACR IMAGING AL 2/3 ASS VIEWS NONEMERG A0120 FEDERATED FEDERATED TRNSPRT: 6 [facility]I-BUS TRANSPORT [facility] SYS NONEMERG A0120 FEDERATED FEDERATED TRNSPRT: 6 MINI-BUS TRANSPORT TRANSPORT MTN [facility] RADIOLOGI 13281 [place] MERY ALL C 6 MEDICAL EXAMINATI IMAGING ON CHEST ASS SINGLE VIEW FRONTAL NONEMERG A0120 FEDERATED FEDERATED TRNSPRT: 6 MINI-BUS TRANSPORT TRANSPORT [facility] ECG 45724 CARDIOVAS MEREDITH ROUTINE 6 CULAR MAT ECG CONSULTAN W/LEAST TS O 12 LDS I&R ONLY RADIOLOGI 53780 [place] ORDONEZ ALL C 6 MEDICAL EXAMINATI IMAGING ON CHEST ASS SINGLE VIEW FRONTAL NONEMERG A0120 FEDERATED FEDERATED TRNSPRT: 6 [facility]I-BUS TRANSPORT [facility] NON[facility] A0120 FEDERATED FEDERATED TRNSPRT: 5 MINI-BUS TRANSPORT TRANSPORT [facility] [address] [facility] 5 JEANIE JEANIE DAY MANAGEMEN T 30 MIN/< SBSQ 95805 [facility] 5 JEANIE JEANIE CARE/DAY 25 MINUTES SBSQ 93463 [facility] 5 JEANIE JEANIE CARE/DAY 25 MINUTES SBSQ 21046 [facility] 5 JEANIE JEANIE CARE/DAY 25 MINUTES SBSQ 57961 [facility] 5 JEANIE JEANIE CARE/DAY 25 MINUTES SBSQ 77659 [facility] 5 JEANIE JEANIE CARE/DAY 25 MINUTES SBSQ 11197 [facility] 5 JEANIE JEANIE CARE/DAY [address] THORAX [address]6549 [place] [facility] 5 MEDICAL GILMA W/CONTRAS IMAGING T ASS MATERIAL RADIOLOGI 34854 [facility] 5 MEDICAL GILMA EXAMINATI IMAGING ON CHEST ASS SINGLE VIEW FRONTAL INITIAL 77037 [facility] 5 JEANIE JEANIE CARE/DAY 50 MINUTES RADEX 04232 [place] [facility]ERY ALL [facility]ING[facility] 5 MEDICAL MINIMUM 2 IMAGING VIEWS ASS URNLS DIP 47777 LAURA SANCHEZ 5 [facility] STICK/TAB INC INC LET REAGENT AUTO MICROSCOP Y NONEMERG A0120 FEDERATED FEDERATED TRNSPRT: 5 MINI-BUS TRANSPORT TRANSPORT MTN ATION SER [facility] ARE[facility]/OTH SYS NONEMERG A0120 FEDERATED FEDERATED TRNSPRT: 5 MINI-BUS TRANSPORT [facility] 33602 CARDIOVAS MEREDITH ROUTINE 5 CULAR MAT ECG CONSULTAN W/LEAST TS O 12 LDS I&R ONLY ECG 22518 LAURA SANCHEZ ROUTINE 5 [facility] ECG INC INC W/LEAST 12 LDS TRCG ONLY W/O I&R NONEMERG A0120 FEDERATED FEDERATED TRNSPRT: 5 MINI-BUS TRANSPORT TRANSPORT MTN ATION SER [facility] AREA/OTH SYS NONEMERG A0120 FEDERATED FEDERATED TRNSPRT: 5 MINI-BUS TRANSPORT [facility] CONTINUOU E0601 [facility] S 5 POSITIVE AIRWAY PRESSURE DEVICE NONEMERG A0120 FEDERATED FEDERATED TRNSPRT: 5 MINI-BUS TRANSPORT TRANSPORT MTN [facility] R & L HRT 55935 CARDIOVAS MEREDITH CATH 5 CULAR MAT WINJX HRT CONSULTAN ART& [place] [address] [place] ALEISHA ABDOMEN & 5 MEDICAL KIERAN PELVIS IMAGING W/O ASS CONTRAST MATERIAL RADIOLOGI 94049 [place] ALEISHA C 5 MEDICAL KIERAN EXAMINATI IMAGING ON CHEST ASS SINGLE VIEW FRONTAL RADIOLOGI 46263 [place] ALEISHA C 5 MEDICAL KIER[place] EXAMINATI IMAGING ON PELVIS ASS 1/[address] [place] [address] [place] CERVICAL 5 MEDICAL KIERAN SPINE W/O IMAGING CONTRAST ASS MATERIAL RADIOLOGI 69522 [place] A[place]HA C 5 MEDICAL KIERAN EXAMINATI IMAGING [place] [address] [place] A[place] THORACIC 5 MEDICAL KIERAN SPINE W/O IMAGING CONTRAST ASS MATERIAL NONEMERG A0120 FEDERATED FEDERATED TRNSPRT: 5 MINI-BUS TRANSPORT TRANSPORT MTN ATION SER ATION SER AREA/OTH SYS RADIOLOGI 73606 [place] LESIAINE C EXAM 5 MEDICAL GILMA CHEST 2 IMAGING VIEWS ASS FRONTAL&L ATERAL NONEMERG A0120 FEDERATED FEDERATED TRNSPRT: 5 MINI-BUS TRANSPORT TRANSPORT MTN ATION SER ATION SER AREA/OTH SYS ECHO 15204 LAURA SANCHEZ TTHRC R-T 5 [facility] [...] ATION SER ATION SER AREA/OTH SYS RADEX 46508 [place] ALE[place] RIBS UNI 5 MEDICAL KIERAN W/POSTERO [...] FEDERATED TRNSPRT: 4 TRANS MINI-BUS [facility] [facility] [address] NICKI ECHEVARRIA ABDOMEN & 4 MEDICAL GILMA PELVIS IMAGING W/CONTRAS ASS T MATERIAL NONEMERG A0120 FEDERATED FEDERATED TRNSPRT: 4 TRANS [facility] [place] [facility]/OTH SYS NONEMERG A0120 FEDERATED FEDERATED TRNSPRT: 4 TRANS MINI-BUS TRANSPORT [facility] [place] AREA/OTH SYS XTRNL 03263 [place] ONDINA OCULAR 4 MEDICAL SHA PHOTOG SERV W/I&R FOUNDATIO DOCMT N MEDICAL PROGRE O2 CONC 1 E1390 ARON ARON DEL PORT 4 HOME HOME 85%/>02 MEDICAL MEDICAL CONC AT EQUIPME EQUIPME PRSC FLW RATE SPMTRY 75640 LAURA SANCHEZ W/VC 4 [facility] EXPIRATOR INC INC Y MARYLOU W/WO MXML VOL VNTJ NONEMERG A0120 FEDERATED FEDERATED TRNSPRT: 4 TRANS [facility]-BUS [facility] [place] [facility]/OTH SYS O2 CONC 1 E1390 ARON ARON [place] 4 HOME HOME 85%/>02 MEDICAL MEDICAL CONC AT EQUIPME EQUIPME PRSC FLW RATE NONEMERG A0120 FEDERATED FEDERATED TRNSPRT: 4 TRANS MINI-BUS TRANSPORT [facility] [place] [facility]/OTH SYS O2 CONC 1 E1390 ARON ARON DEL [place] 4 HOME HOME 85%/>02 MEDICAL MEDICAL CONC AT EQUIPME EQUIPME PRSC FLW RATE NONEMERG A0120 FEDERATED FEDERATED TRNSPRT: 4 TRANS MINI-BUS TRANSPORT [facility] [place] [facility]/OTH SYS NONEMERG A0120 FEDERATED FEDERATED TRNSPRT: 4 TRANS MINI-BUS TRANSPORT [facility] [place] [facility]/OTH SYS O2 CONC 1 E1390 ARON KNIGHTRELL DEL PORT 4 HOME HOME 85%/>02 MEDICAL MEDICAL CONC AT EQUIPME EQUIPME PRS FLW RATE SAVAGE 73490 LAURA MATHIS JR POST-VOID 4 [facility] RESIDUAL P URINE&/BL ADDER CAP [...] ATION SER ATION SER AREA/OTH SYS SAVAGE 92177 LAURA MATHIS JR POST-VOID 4 [facility] RESIDUAL P URINE&/BL ADDER CAP O2 CONC 1 E1390 ARON SHARP DEL PORT 4 HOME HOME 85%/>02 MEDICAL MEDICAL CONC AT EQUIPME EQUIPME [facility] FLW RATE NONEMERG A0120 FEDERATED FEDERATED TRNSPRT: 4 MINI-BUS TRANSPORT TRANSPORT MTN ATION SER ATION SER AREA/OTH SYS NONEMERG A0120 FEDERATED FEDERATED TRNSPRT: 4 MINI-BUS TRANSPORT TRANSPORT MTN ATION SER ATION SER AREA/OTH SYS SAVAGE 34942 LAURA MATHIS JR POST-VOID 4 [facility] RESIDUAL P URINE&/BL ADDER CAP O2 CONC 1 E1390 ARON KNIGHTRELL DEL PORT 4 HOME HOME 85%/>02 MEDICAL MEDICAL CONC AT EQUIPME EQUIPME PRSC FLW RATE NONEMERG A0120 FEDERATED FEDERATED TRNSPRT: 4 MINI-BUS TRANSPORT TRANSPORT MTN ATION SER ATION SER AREA/OTH SYS NONEMERG A0120 FEDERATED FEDERATED TRNSPRT: 4 MINI-BUS TRANSPORT TRANSPORT MTN ATION SER ATION SER AREA/[place] [address] LAURA SANCHEZ MAXILLOFA 4 [facility] CIAL W/O INC INC CONTRAST MATERIAL 3D 10346 [place] RENDERING 4 MEDICAL KIERAN IMAGING W/INTERP& ASS POSTPROC DIFF WORK STATION NONEMERG A0120 FEDERATED FEDERATED TRNSPRT: 4 MINI-BUS [...] ATION SER ATION SER AREA/OTH SYS RADEX 47329 LAURA SANCHEZ WRIST 4 [facility] COMPLETE INC INC MINIMUM 3 VIEWS RADIOLOGI 10457 LAURA SANCHEZ C EXAM 4 [facility] KNEE INC INC COMPLETE 4/MORE VIEWS O2 CONC 1 E1390 ARON ARON DEL [...] SYS O2 CONC 1 E1390 ARON SHARP [facility] PORT 3 HOME HOME 85%/>02 MEDICAL MEDICAL CONC [place] [address] LAURA SANCHEZ INFUSION 3 [facility] THERAPY INC INC PROPHYLAX IS/DX EA HOUR NEUROPLAS 89742 LAURA SANCHEZ TY 3 [facility] &/TRANSPO INC INC S MEDIAN NRV CARPAL TUNNE PRESSURIZ 33213 LAURA SANCHEZ ED/NONPRE 3 [facility] SSURIZED [place] [address] LAURA SANCHEZ INFUSION 3 [facility] THERAPY/P INC INC ROPHYLAXI S /DX 1ST TO 1 HR THERAPEUT 87099 LAURA SANCHEZ IC 3 [facility] INJECTION INC INC IV PUSH EACH NEW DRUG NONEMERG A0120 FEDERATED FEDERATED TRNSPRT: 3 MINI-BUS TRANSPORT TRANSPORT MTN ATION SER ATION SER AREA/OTH SYS NONEMERG A0120 FEDERATED FEDERATED TRNSPRT: 3 MINI-BUS TRANSPORT TRANSPORT MTN ATION SER ATION SER AREA/OTH SYS NONEMERG A0120 FEDERATED FEDERATED TRNSPRT: 3 MINI-BUS TRANSPORT TRANSPORT MTN ATION SER ATION SER AREA/OTH SYS O2 CONC 1 E1390 ARON SHARP KIT [facility] 3 HOME HOME 85%/>02 MEDICAL MEDICAL CONC AT [place] [address] LAURA SANCHEZ INFUSION 3 [facility] THERAPY INC INC PROPHYLAX IS/DX EA HOUR NEUROPLAS 34855 LAURA SANCHEZ TY 3 [facility] &/TRANSPO INC INC S MEDIAN NRV CARPAL TUNNE THERAPEUT 16851 LAURA TRIPPON IC 3 [facility] INJECTION [place] [address] LAURA SANCHEZ INFUSION 3 [facility] THERAPY/P INC INC ROPHYLAXI S /DX 1ST TO 1 HR COLLECTIO 10899 LAURA SANCHEZ N VENOUS 3 [facility] BLOOD INC INC VENIPUNCT URE ECG 08266 LAURA HOLCOMB ROUTINE 3 [facility] W/LEAST P 12 LDS I&R ONLY BASIC 03941 LAURA SANCHEZ METABOLIC 3 [facility] PANEL INC INC CALCIUM TOTAL ECG 47266 LAURA SANCHEZ ROUTINE 3 [facility] ECG INC INC W/LEAST 12 LDS TRCG ONLY W/O I&R BLOOD 83488 LAURA SANCHEZ COUNT 3 [facility] COMPLETE INC INC AUTO&AUTO DIFRNTL WBC RADIOLOGI 91098 [facility] C EXAM 3 MEDICAL KIERAN CHEST 2 IMAGING VIEWS ASS FRONTAL&L ATERAL NONEMERG A0120 LKLP CAC LKLP CAC TRNSPRT: 3 INC INC MINI-BUS REGION 11 REGION 11 MTN AREA/OTH SYS NONEMERG A0120 LKLP CAC LKLP CAC TRNSPRT: 3 INC INC MINI-BUS REGION 11 REGION 11 MTN AREA/OTH SYS DETERMINA 97113 ELENI KNOWLES TION 3 JAM JAM REFRACTIV E STATE OPHTHALMO 34152 ELENI KNOWLES SCPY 3 JAM JAM EXTENDED RETINAL DRAWING I&R 1ST NONEMERG A0120 LKLP CAC LKLP CAC TRNSPRT: 3 INC INC MINI-BUS REGION 11 REGION 11 MTN AREA/OTH SYS O2 CONC 1 E1390 ARON ARON DEL [place] 3 HOME HOME 85%/>02 MEDICAL MEDICAL CONC AT EQUIPOH EQUIPOH PRSC FLW RATE NERVE 56043 ORTHODOXY VINH CONDUCTIO 3 [facility]/> [facility] NONEMERG A0120 LKLP CAC LKLP CAC TRNSPRT: 3 INC INC MINI-BUS REGION 11 REGION 11 MTN AREA/OTH SYS NEEDLE 01090 ORTHODOXY VINH EMG EA 3 [facility] W/PARASPI [place] AREA COMPLETE TRIMMING 50792 BRAUDIS BRAUDIS NONDYSTRO 3 JAM JAM PHIC NAILS ANY NUMBER O2 CONC 1 E1390 ARON ARON [place] 3 HOME HOME 85%/>02 MEDICAL MEDICAL [facility] [place] [address]62 NICKI MORAES SPINAL 3 MEDICAL KIERAN CANAL IMAGING CERVICAL ASS W/O CONTRAST MATRL GLUC BLD 53308 LAURA SANCHEZ GLUC MNTR 3 [facility] DEV INC [place] [address] LAURA SANCHEZ INFUSION 3 [facility] THERAPY INC INC PROPHYLAX IS/DX EA HOUR EGD 70738 LAURA SANCHEZ TRANSORAL 3 [facility] BIOPSY INC INC SINGLE/MU LTIPLE SPCL STN 76828 CHIPPS SUAD ARMANDO 2 I&R 3 SUNITHA & EXCPT DUBILIER MICROORG/ ENZYME/[place] [address] CHIPPS SUAD ARMANDO SURG 3 SUNITHA & PATHOLOGY DUBILIER GROSS&ARMANDO ROSCOPIC EXAM NONEMERG A0120 LKLP CAC LKLP CAC TRNSPRT: 3 INC INC MINI-BUS REGION 11 REGION 11 MTN AREA/OTH SYS EXCISION 44745 MARKIE LOZADA THO NAIL 3 [facility] REMOVAL NONEMERG A0120 LKLP LKLP TRNSPRT: 3 [facility] ACTION ACTION MTN AREA/OTH SYS O2 CONC 1 E1390 ARON FRAZIER PORT 3 HOME HOME 85%/>02 MEDICAL MEDICAL CONC [facility] FL[facility] BLO[facility] 19985 LAURA SANCHEZ COUNT 3 [facility] COMPLETE INC INC AUTO&[place] [address] LAURA SANCHEZ TROPONIN 3 [facility] QUANTITAT INC INC ANGY RADIOLOGI 04448 LAURA SANCHEZ C EXAM 3 [facility] CHEST 2 INC INC VIEWS FRONTAL&L ATERAL CREATINE 97450 LAURA SANCHEZ KINASE MB 3 [facility] FRACTION INC INC ONLY CREATINE 60513 LAURA SANCHEZ KINASE 3 [facility] TOTAL INC INC COMPREHEN 99688 LAURA SANCHEZ SIVE 3 [facility] METABOLIC INC INC PANEL AMB A0427 [facility] SERVICE 3 AMBULANCE AMBULANCE ALS SERVICE SERVICE EMERGENCY TRANSPORT LEVEL 1 ECG 68588 LAURA SANCHEZ ROUTINE 3 [facility] ECG INC INC W/LEAST 12 LDS TRCG ONLY W/O I&R GROUND A0425 MYESHA BRUNNER MILEAGE 3 AMBULANCE AMBULANCE PER SERVICE SERVICE STATUTE MILE ECG 71614 LAURA ZARCO JR ROUTINE 3 [facility] W/LEAST P 12 LDS I&R ONLY NONCOVERE A9270 [facility] D ITEM OR 3 [facility] SERVICE O2 CONC 1 E1390 ARON ARON DEL PORT 3 HOME HOME 85%/>02 MEDICAL MEDICAL CONC AT EQUIPME EQUIPME [facility] FLW RATE DEBRIDEME 71035 BRAUDIS BRAUDIS NT NAIL 3 JAM JAM ANY METHOD 1-5 TRIMMING 71554 BRAUDIS BRAUDIS NONDYSTRO 3 JAM JAM PHIC NAILS ANY NUMBER O2 CONC 1 E1390 ARON ARON DEL PORT 3 HOME HOME 85%/>02 MEDICAL MEDICAL CONC AT EQUIPME EQUIPME [facility] FLW RATE PROSTATE G0103 COMBINED COMBINED CANCER 3 PHYSICIAN PHYSICIAN SCREENING S LA S LA ; PSA TEST URNLS DIP 07851 COMBINED COMBINED 3 PHYSICIAN PHYSICIAN STICK/TAB S LA S LA LET REAGENT AUTO MICROSCOP Y RADEX 22699 [facility] ELBOW 3 MOBILE MOBILE COMPLETE DIAGNOSTI DIAGNOSTI MINIMUM 3 C SE C SE VIEWS RADEX 66746 [facility] HUMERUS 3 MOBILE MOBILE MINIMUM 2 DIAGNOSTI DIAGNOSTI VIEWS C SE C SE RADEX 76618 EXPRESS EXPRESS SHOULDER 3 MOBILE MOBILE COMPLETE DIAGNOSTI DIAGNOSTI MINIMUM 2 C SE C SE VIEWS O2 CONC 1 E1390 ARON ARON DEL PORT 3 HOME HOME 85%/>02 MEDICAL MEDICAL CONC AT EQUIPME EQUIPME [facility] FLW RATE O2 CONC 1 E1390 ARON ARON DEL PORT 3 HOME HOME 85%/>02 MEDICAL MEDICAL CONC AT EQUIPME EQUIPME [facility] FLW RATE DEBRIDEME 33526 BRAUDIS BRAUDIS NT NAIL 3 JAM JAM ANY METHOD 1-5 TRIMMING 45058 BRAUDIS BRAUDIS NONDYSTRO 3 JAM JAM PHIC NAILS ANY NUMBER PARING/CU 02-14-201 62806 RAMÍREZ ELMORE TTING 3 JAM JAM BENIGN HYPERKERA TOTIC LESION >4 O2 CONC 1 E1390 ARON KNIGHTRELL DEL PORT 3 HOME HOME 85%/>02 MEDICAL MEDICAL CONC AT EQUIPME EQUIPME PRSC FLW RATE NONEMERG A0120 LKLP LKLP TRNSPRT: 3 [facility] MINI-BUS ACTION ACTION MTN AREA/[place] [address] LAURA LAURA INFUSION 3 [facility] THERAPY/P INC INC ROPHYLAXI S /DX 1ST TO 1 [place] [address] LAURA LAURA INFUSION 3 [facility] THERAPY INC INC PROPHYLAX IS/DX EA HOUR COLONOSCO 01598 LAURA SANCHEZ PY FLX DX 3 [facility] W/COLLJ INC INC SPEC WHEN PFRMD O2 CONC 1 E1390 ARON SHARP DEL PORT 2 HOME HOME 85%/>02 MEDICAL MEDICAL CONC AT EQUIPME EQUIPME PRSC FLW RATE O2 CONC 1 E1390 ARONADRIANNE SHARP DEL PORT 2 HOME HOME 85%/>02 MEDICAL MEDICAL CONC AT EQUIPME EQUIPME PRSC FLW RATE PROSTATE G0103 COMBINED COMBINED CANCER 2 PHYSICIAN PHYSICIAN SCREENING [place] S [place] ; [place] [address] COMBINED COMBINED THYROID 2 PHYSICIAN PHYSICIAN STIMULATI S LA S LA NG HORMONE TSH COMPREHEN 84688 COMBINED COMBINED SIVE 2 PHYSICIAN PHYSICIAN METABOLIC S LA S LA PANEL COLLECTIO 89567 COMBINED COMBINED N VENOUS 2 PHYSICIAN PHYSICIAN BLOOD S LA S LA VENIPUNCT URE LIPID 12174 COMBINED COMBINED PANEL 2 PHYSICIAN PHYSICIAN S LA S LA O2 CONC 1 E1390 ARON KNIGHTRELL [place] 2 HOME HOME 85%/>02 MEDICAL MEDICAL CONC AT EQUIPME EQUIPME PRSC FLW RATE RADIOLOGI 14679 LAURA SANCHEZ C 2 [facility] EXAMINATI INC INC ON CHEST SINGLE VIEW FRONTAL ECG 15185 LAURA SANCHEZ ROUTINE 2 [facility] ECG INC INC W/LEAST 12 LDS TRCG ONLY W/O I&R ECG 19342 HAROLDO ZARCO JR ROUTINE 2 DWI DWI ECG W/LEAST 12 LDS I&R ONLY NONEMERG A0120 LKLP LKLP TRNSPRT: 2 COMMUNITY COMMUNITY MINI-BUS ACTION ACTION MTN AREA/OTH SYS SAVAGE 06412 DEL MATHIS JR POST-VOID 2 MARCY MARCY ING RESIDUAL URINE&/[place] [address] LAURA SANCHEZ THYROID 2 [facility] STIMULATI INC INC NG HORMONE TSH INSJ TEMP 58753 LAURA SANCHEZ NDWELLG 2 [facility] BLADDER INC INC CATHETER SIMPLE URNLS DIP 99863 LAURA SANCHEZ 2 [facility] STICK/TAB INC INC LET REAGENT AUTO MICROSCOP Y BLOOD 05441 LAURA LAURA COUNT 2 [facility] COMPLETE INC INC AUTO&[place] [address] LAURA LAURA ABDOMEN & 2 [facility] PELVIS INC INC W/O CONTRAST MATERIAL BASIC 32014 LAURA SANCHEZ METABOLIC 2 [facility] PANEL INC INC CALCIUM TOTAL 3D 97805 LAURA SANCHEZ RENDERING 2 [facility] INC INC W/INTERP& [place] [address] LAURA LAURA INFUSION 2 [facility] HYDRATION INC INC INITIAL 31 MIN-1 HOUR RADIOLOGI 17505 [facility] 2 MEDICAL KIERAN EXAMINATI IMAGING ON CHEST ASS SINGLE VIEW FRONTAL ECG 68763 RAND GORDILLO ROUTINE 2 III MARCY III MARCY ECG W/LEAST 12 LDS I&R ONLY O2 CONC 1 E1390 ARONADRIANNE KNIGHTRELL DEL PORT 2 HOME HOME 85%/>02 MEDICAL MEDICAL CONC AT EQUIPME EQUIPME PRS FLW RATE TRIMMING 04716 BRAUDIS BRAUDIS NONDYSTRO 2 JAM JAM PHIC NAILS ANY NUMBER O2 CONC 1 E1390 ARON ARON DEL PORT 2 HOME HOME 85%/>02 MEDICAL MEDICAL CONC AT EQUIPME EQUIPME PRS FLW RATE BLOOD 39179 LAURA SANCHEZ COUNT 2 [facility] COMPLETE INC INC AUTO&AUTO DIFRNTL WBC CT SOFT 69871 NICKI STILESUTCHER TISSUE 2 MEDICAL KIERAN NECK W/O IMAGING CONTRAST ASS MATERIAL CT SOFT 91807 LAURA SANCHEZ TISSUE 2 [facility] NECK INC INC W/CONTRAS T MATERIAL 3D 18438 LAURA SANCHEZ RENDERING 2 [facility] INC INC W/INTERP& POSTPROC DIFF WORK STATION BASIC 34821 LAURA SANCHEZ METABOLIC 2 [facility] PANEL INC INC CALCIUM TOTAL LOCM Q9967 LAURA SANCHEZ 300-399 2 [facility] MG/ML INC INC IODINE CONCENTRA TION PER ML O2 CONC 1 E1390 ARON SHARP DEL PORT 2 HOME HOME 85%/>02 MEDICAL MEDICAL CONC AT EQUIPME EQUIPME PRSC FLW RATE O2 CONC 1 E1390 ARON FRAZIER PORT 2 HOME HOME 85%/>02 MEDICAL MEDICAL CONC AT EQUIPME EQUIPME PRSC FLW RATE CONTINUOU E0601 ARON SHARP S 2 HOME HOME POSITIVE MEDICAL MEDICAL AIRWAY EQUIPME EQUIPME PRESSURE DEVICE O2 CONC 1 E1390 ARON FRAZIER PORT 2 HOME HOME 85%/>02 MEDICAL MEDICAL CONC AT EQUIPME EQUIPME PRSC FLW RATE CONTINUOU E0601 ARON SHARP S 2 HOME HOME POSITIVE MEDICAL MEDICAL AIRWAY EQUIPME EQUIPME PRESSURE DEVICE O2 CONC 1 E1390 ARON FRAZIER PORT 2 HOME HOME 85%/>02 MEDICAL MEDICAL CONC AT EQUIPME EQUIPME PRSC FLW RATE CONTINUOU E0601 ARON SHARP S 2 HOME HOME POSITIVE MEDICAL MEDICAL AIRWAY EQUIPME EQUIPME PRESSURE DEVICE NONEMERG A0120 LKLP LKLP TRNSPRT: 2 COMMUNITY COMMUNITY MINI-BUS ACTION ACTION MTN AREA/OTH SYS ECG 20214 ZEKE BAR ZEKE BAR ROUTINE 2 ECG W/LEAST 12 LDS I&R ONLY ECG 00252 HEEB CHR HEEB CHR ROUTINE 2 ECG W/LEAST 12 LDS I&R ONLY ECG 91085 HEEB CHR HEEB CHR ROUTINE 2 ECG W/LEAST 12 LDS I&R ONLY RADIOLOGI 02-04-201 44199 RADIOLOGY NEILS JONATHAN C 2 EXAMINATI ASSOCIATE ON CHEST S OF NOT SINGLE VIEW FRONTAL ECG 45082 HEEB CHR HEEB CHR ROUTINE 2 ECG [...] EQUIPME EQUIPME PRSC FLW RATE NASL A7034 ARONADRIANNE SHARP INTRFCE 1 HOME HOME POS ARWAY MEDICAL MEDICAL PRSS EQUIPME EQUIPME DEVC W/WO HEAD STRAP HEADGEAR A7035 ARONADRIANNE SHARP USED 1 HOME HOME W/POSITIV MEDICAL MEDICAL E AIRWAY EQUIPME EQUIPME PRESSURE DEVICE HUMDIFIR E0562 ARONADRIANNE SHARP HEATED 1 HOME HOME USED MEDICAL MEDICAL W/POS EQUIPME EQUIPME ARWAY PRESSURE DEVICE CONTINUOU E0601 ARON SHARP S 1 HOME HOME POSITIVE MEDICAL MEDICAL AIRWAY EQUIPME EQUIPME PRESSURE DEVICE FILTER A7038 ARONADRIANNE SHARP DISPBL 1 HOME HOME USED MEDICAL MEDICAL W/POS EQUIPME EQUIPME ARWAY PRESSURE DEVICE FILTER A7039 ARONADRIANNE SHARP NON 1 HOME HOME DISPBL MEDICAL MEDICAL USED EQUIPME EQUIPME W/POS ARWAY PRESS DEVICE TUBING A7037 ARONADRIANNE SHARP USED WITH 1 HOME HOME POSITIVE MEDICAL MEDICAL AIRWAY EQUIPME EQUIPME PRESSURE DEVICE POLYSOM 14179 LEON QUINTERO 6/>YRS 1 ERNST ERNST SLEEP W/CPAP 4/> ADDL KATARINA ATTND POLYSOM 32368 LAURA SANCHEZ 6/>YRS 1 [facility] SLEEP INC INC W/CPAP 4/> ADDL KATARINA ATTND COMPREHEN 15649 LAURA SANCHEZ SIVE 1 [facility] [place] [address] [place] A[place] ABDOMEN & 1 MEDICAL KIERAN PELVIS IMAGING W/O ASS CONTRAST MATERIAL 3D 98092 NICKI STILESUTCHER RENDERING 1 MEDICAL KIERAN IMAGING W/INTERP& ASS POSTPROC DIFF WORK STATION URNLS DIP 42686 LAURA SANCHEZ 1 [facility] STICK/TAB INC INC LET REAGENT AUTO MICROSCOP Y INSJ TEMP 06065 LAURA SANCHEZ NDWELLG 1 [facility] BLADDER INC INC CATHETER SIMPLE BLOOD 65931 LAURA SANCHEZ COUNT 1 [facility] COMPLETE INC INC AUTO&AUTO DIFRNTL WBC COLLECTIO 74282 LAURA SANCHEZ N VENOUS 1 [facility] BLOOD INC INC VENIPUNCT URE CULTURE 53967 LAURA SANCHEZ BACTERIAL 1 [facility] INC INC QUANTTATI VE COLONY COUNT URINE INJECTION J2785 LAURA SANCHEZ 1 [facility] REGADENOS INC INC ON 0.1 MG MYOCARDIA 35046 FALLUJI FALLUJI L SPECT 1 TATUM TATUM MULTIPLE STUDIES CV STRS 82764 AICHA HOLCOMB TST 1 JEANIE JEANIE XERS&/OR RX CONT ECG I&R ONLY TECHNETIU A9502 LAURA ALURA M TC-99M 1 [facility] TETROFOSM INC INC IN DX PER STUDY DOSE CV STRS 91517 AICHA HOLCOMB TST 1 JEANIE JEANIE XERS&/OR RX CONT ECG W/O I&R CV STRS 96630 LAURA SANCHEZ TST 1 [facility] XERS&/OR INC INC RX CONT ECG TRCG ONLY INITIAL 64082 AICHA HOLCOMB OBSERVATI 1 JEANIE JEANIE ON CARE/DAY 30 MINUTES ECG 49071 PUND CHR PUND CHR ROUTINE 1 ECG W/LEAST 12 LDS I&R ONLY RADIOLOGI 22856 NICKI MORAES C EXAM 1 MEDICAL KIERAN CHEST 2 IMAGING VIEWS ASS FRONTAL&L ATERAL ECHO 82922 FALLUJI FALLUJI TTHRC R-T 1 TATUM TATUM 2D W/WOM-MOD E COMPL SPEC&COLR D POLYSOM 94123 LEON QUINTERO 6/>YRS 1 ERNST ERNST SLEEP 4/> ADDL KATARINA ATTND NONEMERG A0120 LKLP LKLP TRNSPRT: 1 [facility] N [facility] AREA/OT SYS POLYSOM 68486 LAURA TRIPPON 6/>YRS 1 [facility] SLEEP 4/> INC INC ADDL KATARINA ATTND NONINVASI 30081 LAURA SANCHEZ VE 1 [facility] EAR/PULSE INC INC OXIMETRY SINGLE DETER CHRMSM 18115 LAURA SANCHEZ ANALYSIS 1 [facility] ADDL HIGH INC INC RESOLUTIO N STUDY COLLECTIO 59988 LAURA SANCHEZ N VENOUS 1 [facility] BLOOD INC INC VENIPUNCT URE SPMTRY 89698 LAURA SANCHEZ W/VC 1 [facility] EXPIRATOR INC INC Y MARYLOU W/WO MXML VOL VNTJ NONEMERG A0120 LKLP LKLP TRNSPRT: 1 [facility] AREA/OTH SYS CHRMSM 50263 LAURA SANCHEZ COUNT 1 [facility] 15-20 CLL INC INC 2[place] [address] LAURA SANCHEZ THYROID 1 [facility] STIMULATI INC INC NG HORMONE TSH BLOOD 98919 LAURA SANCHEZ COUNT 1 [facility] COMPLETE INC INC AUTO&AUTO DIFRNTL WBC COMPREHEN 90077 LAURA SANCHEZ SIVE 1 [facility] METABOLIC INC INC PANEL COMPREHEN 15809 COMBINED COMBINED SIVE 1 PHYSICIAN PHYSICIAN [place] [address] COMBINED COMBINED THYROID 1 PHYSICIAN PHYSICIAN STIMULATI S LA S LA NG HORMONE TSH PROSTATE G0103 COMBINED COMBINED CANCER 1 PHYSICIAN PHYSICIAN SCREENING S LA S LA ; PSA TEST COLLECTIO 62551 COMBINED COMBINED N VENOUS 1 PHYSICIAN PHYSICIAN BLOOD S LA S LA VENIPUNCT URE LIPID 22985 COMBINED COMBINED PANEL 1 PHYSICIAN PHYSICIAN S LA S LA TRAVEL [address] MED 1 PHYSICIAN PHYSICIAN NEC LAB S LA S LA SPEC; PRORATD TRIP CHRG NONEMERG A0120 LKLP LKLP TRNSPRT: 1 [facility] WIN AREA/OTH SYS CULTURE 32993 COMBINED COMBINED BACTERIAL 1 PHYSICIAN PHYSICIAN S LA S LA [place]TTAT[place] [address] ORAL ORAL SURG 1 PATHOLOGY PATHOLOGY PATHOLOGY LABORATOR LABORATOR GROSS&ARMANDO Y Y ROSCOPIC EXAM URNLS DIP 35078 COMBINED COMBINED 1 PHYSICIAN PHYSICIAN STICK/TAB S LA S LA LET REAGENT AUTO MICROSCOP Y ORTHOPANT 21527 THE THE OGRAM 1 IMPLANT & IMPLANT & ORAL ORAL SURGERY C SURGERY C NONEMERG A0120 LK LK TRNSPRT: 1 [facility] MTN AREA/OTH SYS EXC 53223 THE RODRIGUEZ, LESION/TU 1 IMPLANT & III OANH MOR ORAL DENTOALVE SURGERY C OLAR STRUX W/SMPL RPR NONEMERG A0120 [facility] 1 [facility] WIN AREA/OTH SYS NONEMERG A0120 LK LK TRNSPRT: 1 [facility] WIN AREA/OTH SYS OPHTH 42115 [facility] [place] 1 VISION XM&EVAL COMPRE NEW PT 1/> VST RADEX 90501 [facility] WRIST 1 [facility] COMPLETE MINIMUM 3 VIEWS TRANS R0070 [facility] PRTBL 1 [facility] X-RAY EQP&PERS [place]/NRS RICH[place]D-TRIP 1 PT SET-UP Q0092 [facility] PORTABLE 1 [facility] X-RAY EQUIPMENT SET-UP Q0092 [facility] PORTABLE 1 [facility] X-RAY EQUIPMENT TRANS R0070 [facility] PRTBL 1 [facility] X-RAY EQP&PERS [place]MON[place]/NRS RICHMOND-TRIP 1 PT RADIOLOGI 19351 [facility] C 1 [facility] EXAMINATI ON CHEST SINGLE [place] FRONTAL URNLS DIP 41872 LAURA SANCHEZ 1 [facility] STICK/TAB INC INC LET REAGENT AUTO MICROSCOP Y INSJ TEMP [address] [facility]LLG [facility] BLADDER INC INC CATHETER SIMPLE BLOOD 09371 LA[facility]A [facility]HE[facility] COUNT 1 [facility] COMPLETE INC INC AUTO&AUTO DIFRNTL WBC COMPREHEN 84605 LA[facility] SIVE 1 [facility] METABOLIC INC INC PANEL 3D 50756 [facility] ALEISHA RENDERING 1 MEDICAL KIERAN IMAGING W/INTERP& [place] [address] [facility] MORAES ABDOMEN & 1 MEDICAL KIERAN PELVIS IMAGING W/O ASS CONTRAST MATERIAL AMBULANCE [id number] [employer] [facility] SERVICE 1 AMBULANCE AMBULANCE BLS SERVICE SERVICE EMERGENCY TRANSPORT GROUND A0425 [facility] MILEAGE 1 AMBULANCE AMBULANCE PER SERVICE SERVICE STATUTE MILE GROUND A0425 [facility] MILEAGE 1 AMBULANCE AMBULANCE PER SERVICE SERVICE STATUTE MILE SET-UP Q0092 EXPRESS EXPRESS PORTABLE 1 MOBILE MOBILE X-RAY DIAGNOSTI DIAGNOSTI EQUIPMENT C SE C SE ECG [address] [facility]. PURCHASE ROUTINE 1 [facility] ECG CARDIOLOG W/LEAST Y CLINIC 12 LDS I&R ONLY TRANS R0075 EXPRESS EXPRESS PRTBL 1 MOBILE MOBILE XRAY DIAGNOSTI DIAGNOSTI EQP&PERS C SE C SE RICHMOND/NRS RICHMOND-TRIP> 1 PT RADEX 75494 EXPRESS EXPRESS HAND 1 MOBILE MOBILE MINIMUM 3 DIAGNOSTI DIAGNOSTI VIEWS C SE C SE RADEX 54776 EXPRESS EXPRESS WRIST 1 MOBILE MOBILE COMPLETE DIAGNOSTI DIAGNOSTI MINIMUM 3 C SE C SE VIEWS AMB A0427 [facility] MERCURY SERVICE 1 AMBULANCE AMBULANCE ALS SERVICE SERVICE EMERGENCY TRANSPORT LEVEL 1 SBSQ 33244 [facility] [place] CARE/DAY URGENT 25 TREAT MINUTES RADIOLOGI 95083 [facility] [place] RADHA C 1 RADIOLOGY BOY EXAMINATI ON CHEST SINGLE VIEW FRONTAL SBSQ [address] CARE/DAY URGENT 35 TREAT MINUTES SBSQ 66561 [facility] 1 [place] CARE/DAY URGENT 25 TREAT MINUTES SBSQ 34679 [facility] 1 [place] CARE/DAY URGENT 25 TREAT MINUTES SBSQ 73959 [facility] 1 URGENT CARE/DAY TREATMENT 35 A MINUTES SET-UP Q0092 EXPRESS EXPRESS PORTABLE 1 MOBILE MOBILE X-RAY DIAGNOSTI DIAGNOSTI EQUIPMENT C SE C SE TRANS R0070 EXPRESS EXPRESS PRTBL 1 MOBILE MOBILE X-RAY DIAGNOSTI DIAGNOSTI EQP&PERS C SE C SE RICHMOND/NRS RICHMOND-TRIP 1 PT RADEX 39976 EXPRESS EXPRESS HAND 1 MOBILE MOBILE MINIMUM 3 DIAGNOSTI DIAGNOSTI VIEWS C SE C SE SBSQ 37392 [facility] 1 URGENT CARE/DAY TREATMENT 35 A MINUTES SBSQ 99215 [facility] 1 [place] CARE/DAY URGENT 35 TREAT MINUTES SET-UP Q0092 EXPRESS EXPRESS PORTABLE 1 MOBILE MOBILE X-RAY DIAGNOSTI DIAGNOSTI EQUIPMENT C SE C SE ECG 05872 [facility] ROUTINE 1 [place] ECG URGENT W/LEAST TREAT 12 LDS I&R ONLY ECG 04264 EXPRESS EXPRESS ROUTINE 1 MOBILE MOBILE ECG DIAGNOSTI DIAGNOSTI W/LEAST C SE C SE 12 LDS TRCG ONLY W/O I&R TRANS R0070 EXPRESS EXPRESS PRTBL 1 MOBILE MOBILE X-RAY DIAGNOSTI DIAGNOSTI EQP&PERS C SE C SE RICHMOND/NRS RICHMOND-TRIP 1 PT RADIOLOGI 99177 EXPRESS EXPRESS C EXAM 1 MOBILE MOBILE CHEST 2 DIAGNOSTI DIAGNOSTI VIEWS C SE C SE FRONTAL&L ATERAL INITIAL 44777 [facility] 1 URGENT CARE/DAY TREATMENT 50 A MINUTES LIPID 09835 FAMILY [facility] PANEL 1 [facility] [place] [facility] COLLECTIO 19517 FAMILY FAMILY N VENOUS 1 PRACT PRACT BLOOD ASSOC OF ASSOC OF [place] [address] FAMILY [facility] FREE 1 [facility] [place] [address] FAMILY [facility] THYROID 1 PRACT RONALD STIMULATI ASSOC OF NG [place] HORMONE TSH COMPREHEN 08257 FAMILY [facility] SIVE 1 PRACT RON[facility]D METABOLIC ASSOC OF PANEL [place] RADEX 72357 CENTRAL LYN J SPINE 1 RADIOLOGY THORACIC ASSOC MINIMUM 4 VIEWS URNLS DIP 86549 FAMILY MONOHAN 1 PRACT RONALD STICK/TAB ASSOC OF [place] [address] [facility] [place] ABDOMEN & 1 RADIOLOGY LD A PELVIS W/CONTRAS T MATERIAL Encounters Encounter Start End Date Code Location Performer Type Date OFFICE 19817 MUNDO LUNDBERGICK OUTPATIEN 7 7 MEDICAL T VISIT SERV 25 FOUNDATIO MINUTES [facility] - OTHER 7 7 [facility] - OTHER 7 7 [facility] 7 7 [facility] - 7 7 [facility] T OFFICE 45596 [facility] LEAL OUTPATIEN 7 7 [facility] 10 P MINUT[facility] 7 [facility] 7 7 [facility] E OFFICE 20109 MUNDO BENAVIDES OUTPATIEN 7 7 MEDICAL T VISIT SERV 40 FOUNDATIO MINUTES [facility] - OTHER 7 7 [facility] 7 [facility] OFF[facility] 30696 [facility] PETTEY OUTPATIEN 7 7 PHYSICIAN T VISIT S GROUP 10 MINUTES OFFICE 81086 [facility] MEREDITH OUTPATIEN 7 7 PHYSICIAN T VISIT S GROUP 25 MINUTES [facility]OSP[facility] - 7 7 [facility] T OFF[facility] 80328 LAURA MOOREKINS OUTPATIEN 7 7 [facility] 10 P MINUTES [facility] 7 7 [facility] - 7 7 [facility] OUTPATIEN INC T OFFICE 64182 LAURA LEAL OUTPATIEN 7 7 [facility] 10 P MINUTES [facility] - 7 7 [facility] OUTPATIEN INC [facility] LAURA - 7 7 [facility] OUTPATIEN INC T OFFICE 19015 [facility] PETTEY OUTPATIEN 7 7 PHYSICIAN T VISIT S GROUP 15 MINUTES HOSPITAL [facility] - OTHER 7 7 [facility] INC [facility] INPAT[facility] 7 7 [facility] E OFF[facility] 14524 [facility] BRYANT OUTPATIEN 7 7 PHYSICIAN T NEW 20 S GROUP MINUTES [facility] INPATIENT 7 7 [facility] E OFFICE 12784 [facility] OUTPATIEN 7 7 PHYSICIAN T VISIT S GROUP 25 MINUTES [facility]OSP[facility] - 7 7 [facility] OUTPATIEN INC [facility] INPATIENT 7 7 [facility] E [facility] INPATIENT 7 7 [facility]ALTH[facility] E EMERGENCY 46242 KEVIN JEFFERS DEPT 7 7 PHYSICIAN VISIT S, PLLC HIGH SEVERITY& THREAT FUNCJ [facility] INPATIENT 7 7 [facility] - 7 7 [facility] OUTPATIEN E HOSPITALS OFFICE 53693 [facility] OUTPATIEN 7 7 MEDICAL T VISIT SERV 25 FOUNDATIO MINUTES N [facility] INPAT[facility] 7 7 [facility] E [facility] INPATIENT 6 6 [facility] INPATIENT 6 6 [facility] - 6 6 [facility] OUTPATIEN INC T OFFICE 04574 MUNDO BENAVIDES OUTPATIEN 6 6 MEDICAL T VISIT SERV 25 FOUNDATIO MINUTES [facility] 6 6 [facility] 6 6 [facility] LAURA - 6 6 [facility] OUTPATIEN INC T OFFICE 95734 [facility] MEREDITH OUTPATIEN 6 6 PHYSICIAN MAT T VISIT S GROUP 25 MINUTES [facility] IN[facility] 6 6 [facility] 6 6 [facility] E OFFICE 93799 [facility] MEREDITH OUTPATIEN 6 6 PHYSICIAN MAT T VISIT S GROUP 25 MINUTES OFFICE 40168 [facility] MEREDITH OUTPATIEN 6 6 PHYSICIAN MAT T VISIT S GROUP 25 MINUTES HOSPITAL MEADOWVIE - 6 6 [facility] - 6 6 [facility] OUTPATIEN INC T OFFICE 30518 [facility] MEREDITH OUTPATIEN 6 6 PHYSICIAN MAT T VISIT S GROUP 25 MINUTES HOSPITAL MEAWVIE - 6 6 [facility]A - 6 6 [facility] OUTPATIEN INC T OFFICE 92198 CARDIOVAS [facility] OUTPATIEN 6 6 CULAR MAT T VISIT CONSULTAN 25 TS O MINUTES [facility]OSP[facility] - 5 5 [facility] OUTPATIEN INC T EMERGENCY 46797 [facility] 5 5 [facility] DEPARTMEN INC T VISIT LOW/MODER SEVERITY OFFICE 77226 CARDIOVAS [facility]ITH OUTPATIEN 5 5 CULAR MAT T VISIT CONSULTAN 40 TS O MINUTES [facility]OSPITAL [facility] - 5 5 [facility] OUTPATIEN INC T OFFICE 40803 [facility] OUTPATIEN 5 5 Y T VISIT 5 [facility] UNIVERSIT - 5 5 Y OUTPATIEN HOSPITAL T EMERGENCY 47663 [facility] 5 5 [facility] DEPARTMEN INC T VISIT MODERATE SEVERITY [facility] - 5 5 [facility] OUTPATIEN INC T [facility] - 5 5 [facility] OUTPATIEN INC T [facility] - 4 4 [facility] OUTPATIEN INC T OFFICE 31123 [place] OND[place] OUTPATIEN 4 4 MEDICAL SHA T NEW 30 SERV MINUTES FOUNDATIO N OFFICE 29421 [place] [facility] [place] [facility] OUT[facility] 4 4 T VISIT 10 MINUTES OFFICE 36415 [facility] 4 T VISIT 10 MINUTES [facility] - 4 4 [facility] OUTPATIEN INC T OFFICE 96575 ANNETTE BRYANT OUTPATIEN 4 4 DEUCE DEUCE T NEW 30 MINUTES OFFICE 22261 [facility] PETTE OUTPATIEN 4 4 PHYSICIAN JAM T VISIT S GROUP 15 MINUTES HOSPITAL [facility] - 4 4 [facility] OUTPATIEN INC T [facility] - 3 3 [facility] OUTPATIEN INC T [facility] - 3 3 [facility] OUTPATIEN INC T [facility] - 3 3 [facility] OUTPATIEN INC T OFFICE 97193 [facility] VINH OUTPATIEN 3 3 NEUROLOGY [facility] T VIS[facility] 15 [place] MINUTES [facility]OSP[facility] - 3 3 [facility] OUTPATIEN INC T [facility] - 3 3 [facility] T OFFICE 54140 MARKIE SANDERSON OUTPATIEN 3 3 FOOT AND T NEW 20 ANKLE MINUTES CENTER OFFICE 79147 LAURA GEORGE OUTPATIEN 3 3 SATHYA HILLMAN T VISIT HOSPITAL 25 MINUTES EMERGENCY 34091 [facility] 3 3 [facility] T VISIT HIGH/URGE NT SEVERITY HOSPITAL [facility] - 3 3 [facility] T EMERGENCY 41942 ERIC JEFFERS DEPT 3 3 MEDICAL ARMANDO VISIT GROUP, HIGH PLLC SEVERITY& THREAT FUNCJ EMERGENCY 10224 [facility] 3 3 [facility] EMERGENCY T VISIT PHYSI MODERATE SEVERITY HOSP[facility] [address] [facility] EM[facility]ENC[facility] [address] T VISIT LOW/MODER SEVERITY OFFICE 47[address] [facility] OUTPATIEN 3 3 ZO BRUNO BERNSTEIN T VISIT CARDIOLOG 15 Y CLINIC MINUTES [facility]A - 3 3 [facility] OUTPATIEN [facility] T OFFICE 92325 Sheridan WHITMAN DORIS OUTPATIEN 2 2 DORIS HILLMAN T NEW 45 MD [facility] MINUTES OFFICE [address] [facility] FALLUJI OUTPATIEN 2 2 ZO TATUM T VISIT CARDIOLOG 25 Y CLINIC MINUTES [facility] - 2 2 [facility] T EMERGENCY 41441 [facility] 2 2 [facility] T VISIT MODERATE [facility]VERITY [facility]OSPITAL [facility] - 2 2 [facility]EN [facility] T HOSPITAL [facility] - 2 2 [facility] T HOSP[facility] - 2 2 [facility]PATIEN INC T EMERGENCY 11936 [facility] 2 2 [facility] VISIT HIGH/URGE NT SEVERITY EMERGENCY 99974 [facility] 2 2 [facility] VISIT [facility]OW/MODER SEVERITY [facility] - 2 2 [facility] 1 [facility] 86600 [facility] 1 1 [facility] VISIT [facility]IGH/URGE NT SEVERITY [facility] 1 1 [facility] - 1 1 [facility] - 1 1 [facility] - 1 1 [facility] 1 1 [facility] OFFICE 87961 [place] BE[place]VID[place] OUTPATIEN 1 1 [facility] 60 SERV MINUTES [facility] LAURA - 1 1 [facility] 97602 [facility] 1 1 [facility] VISIT HIGH/URGE NT SEVERITY EMERGENCY 51097 AMANDA JEFFERS DEPT 1 1 EMERGENCY [facility]AND[facility] VISIT SERVICES HIGH SEVERITY& THREAT FUNCJ OFFICE 99729 LAURA MATHIS JR OUTPATIEN 1 1 [facility] 30 HOSPITAL MINUTES P OFFICE 56406 FAMILY MONOHAN OUTPATIEN 1 1 PRACT RONALD T VISIT ASSOC OF 25 [place] PS MINUTES OFFICE 52073 FAMILY MONOHAN OUTPATIEN 1 1 PRACT RONALD T VISIT ASSOC OF 25 [place] MINUTES EMERGENCY 03806 [facility] DEPT 1 1 [facility] VISIT CARE HIGH PHYSICANS SEVERITY& M THREAT FUNCJ
--- OUTSIDE RECORDS SUMMARY | 2017-05-30 13:18 | External Medical Summary Rpt | CCD ---
Author Author , GRAHAM Organization GRAHAM Address Unknown Phone [email or web address] Providers Care Differential Tester Name Role Phone [facility], [facility] Unavailable Unavailable [facility], [facility] Unavailable Unavailable RADHA BOY, RADHA Unavailable Unavailable BOY [facility] Unavailable Unavailable PHYSICANS M, [facility] M LEAL, LEAL Unavailable Unavailable [facility] Unavailable Unavailable [facility], [facility] Unavailable Unavailable [facility]OCI[facility], [facility] DESMOND CARLOS, Unavailable Unavailable DESMOND CARLOS ANJUR-KAPALI DAY, Unavailable Unavailable ANJUR-KAPALI DAY MAGDALENA FAD, MAGDALENA FAD Unavailable Unavailable [facility] Un[facility] [place] BEINEKE GILMA, BEINEKE Unavailable Unavailable GILMA BESSON, BESSON Unavailable Unavailable BESSON JEANIE, BESSON Unavailable Unavailable JEANIE BESSON JEANIE, BESSON Unavailable Unavailable JEANIE ORDONEZ, ORDONEZ Unavailable Unavailable ORDONEZ ALL, ORDONEZ ALL Unavailable Unavailable BRAUDIS JAM, BRAUDIS Unavailable Unavailable JAM BRAUDIS JAM, BRAUDIS Unavailable Unavailable JAM [facility] Unavailable Unavailable SERVICE, [facility] Unavailable Unavailable SERVICE, [facility] DOBSON LAR, DOBSON LAR Unavailable [...] ERNST QUINTERO ERNST, Unavailable Unavailable QUINTERO ERNST [facility], Unavailable Unavailable [facility] VINH DYLAN, Unavailable Unavailable VINH DYLAN [...] ARMANDO SUAD ARMANDO, SUAD ARMANDO Unavailable Unavailable [facility] Unavailable Unavailable INC, [facility] Unavailable Unavailable HOSPITAL, [facility] Unavailable [facility]available HOSPITAL P, [facility] HEEB CHR, HEEB CHR Unavailable Unavailable [facility] Unavailable Unavailable [facility] Unavailable Unavailable [facility], Unavailable Unavailable [facility] Unavailable Unavailable IMAGING [facility], [facility] KIERRA THO, KIERRA THO Unavailable Unavailable [facility] Un[facility] BRYANT, BRYANT Unavailable Unavailable BRYANT DEUCE, BRYANT Unavailable Unavailable DEUCE CHRIS EHSAN, CHRIS Unavailable Unavailable EHSAN HAROLDO JR DWI, HAROLDO Unavailable Unavailable JR DWI HAROLDO JR DWI, HAROLDO Unavailable Unavailable JR DWI [facility] Unavailable Unavailable 11, [facility] 11 [facility], Unavailable Unavailable [facility] Unavailable Unavailable ACTION, [facility] KNOWLES JAM, Unavailable Unavailable KNOWLES JAM KNOWLES JAM, Unavailable Unavailable KNOWLES JAM BENAVIDES, BENAVIDES Unavailable Unavailable BENAVIDES JAM, Unavailable Unavailable BENAVIDES J[facility] Unavailable Unavailable MEDICAL, [facility] Unavailable Unavailable MEDICAL, [facility] Unavailable Unavailable haku, [facility] Unavailable Unavailable SERVICE, [facility] MONOHAN RONALD, MONOHAN Unavailable Unavailable RONALD SIEGEL JUAQUIN, SIEGEL Unavailable Unavailable JUAQUIN ONDINA, ONDINA Unavailable Unavailable ONDINA SHA, ONDINA Unavailable Unavailable SHA NEILS JONATHAN, NEILS JONATHAN Unavailable Unavailable [facility] Unavailable Unavailable URGENT TREAT, [facility] ORAL PATHOLOGY Unavailable [...] [facility] Unavailable Unavailable EMERGENCY PH[facility], [facility]available Unavailable OF [facility], [facility], Unavailable Unavailable [facility] Unavailable Unavailable CLINIC, [facility] CL[facility]IC [facility]available Unavailable SURGERY C, [facility] Unavailable Unavailable HOSPITALS, [facility], Unavailable Unavailable [facility] WEHRMAN III MARCY, Unavailable Unavailable WEHRMAN III MARCY ZEKE BAR, ZEKE BAR Unavailable Unavailable ZEKE BAR, ZEKE BAR Unavailable Unavailable KALINA A, Unavailable Unavailable KALINA A Purpose Continuity of Care Document - 12-28-2010 through 2016 Problems Code Diagnosis DOS Provider Status E119 TYPE 2 05-08-2017 [facility] MELLITUS ASSOCIATES WITHOUT COMPLICATIO NS R109 UNSPECIFIED 05-08-2017 [facility] ABDOMINAL HE[facility] PAIN ASSOCIATES D649 ANEMIA 04-24-2017 [facility] UNSPECIFIED HEALTH ASSOCIATES E6601 MORBID 04-24-2017 [facility] SEVERE SERV OBESITY DUE FOUNDATION TO EXCESS CALORIES J449 CHRONIC 04-24-2017 [facility] OBSTRUCTIVE SERV PULMONARY FOUNDATION DISEASE UNS J9610 CHRONIC 04-24-2017 [facility] RESPIRATORY SERV FAIL UNS FOUNDATION HYPOXIA/HYP ERCAPNIA J988 OTHER 04-24-2017 [facility] SPECIFIED SERV RESPIRATORY FOUNDATION DISORDERS N390 URINARY 04-07-2017 [facility] TRACT [facility] INFECTION INC SITE NOT SPECIFIED I2510 ASHD [place] 04-06-2017 [place] CORONARY HEALTHCARE ARTERY W/O ANGINA PECTORIS R627 ADULT 04-06-2017 [facility] FAILURE TO HEALTH THRIVE ASSOCIATES G4733 OBSTRUCTIVE 04-04-2017 [facility] SLEEP [facility] APNEA ADULT INC PEDIATRIC I509 HEART 04-04-2017 [facility] FAILURE [facility] UNSPECIFIED INC R0602 SHORTNESS 04-04-2017 [place] [facility]ATH [facility] ASS R1310 DYSPHAGIA 04-04-2017 [place] UNSPECIFIED MEDICAL IMAGING ASS R5383 OTHER 04-04-2017 [facility] R942 ABNORMAL 04-04-2017 [facility] RESULTS OF [facility] PULMONARY INC FUNCTION STUDIES E162 HYPOGLYCEMI 03-27-2017 [facility] A HEALTH UNSPECIFIED ASSOCIATES P41485 OTHER LONG 03-21-[address] [facility] [address] [facility] CURRENT ASSOCIATES DRUG THERAPY B351 TINEA 02-05-2017 SPECIAL UNGUIUM CARE PODIATRY OF YAMIL A47977 PAIN IN 02-05-2017 SPECIAL RIGHT TOES CARE PODIATRY OF YAMIL N81832 PAIN IN 02-05-2017 SPECIAL LEFT TOES CARE PODIATRY OF Y[place] R69 ILLNESS 01-16-2017 [facility] UNSPECIFIED TRANSPORTAT ION SER Z9989 DEPENDENCE 01-16-2017 [place] [facility] OTHER SERV ENABLING FOUNDATION MACHINES & DEVICES D33255 PAIN IN 01-13-2017 [facility] RIGHT [facility] [id number] PAIN IN 01-13-2017 [facility] RIGHT LEG LLC G69758 PAIN IN 01-13-2017 [facility] RIGHT LOWER LLC LEG I10 ESSENTIAL 01-09-2017 [facility] HEALTH HYPERTENSIO ASSOCIATES N R4182 ALTERED 01-09-2017 [facility] MENTAL HEALTH STATUS ASSOCIATES UNSPECIFIED R531 WEAKNESS 01-09-2017 [facility] Z7409 OTHER 01-09-2017 [facility] REDUCED [facility] MOBILITY INC I517 CARDIOMEGAL 01-08-2017 [facility] Y LLC M30113 PAIN IN 01-04-2017 [place] RIGHT WRIST [facility]ICAL IMAGING ASS M7989 OTHER 01-04-2017 [place] SPECIFIED MEDICAL SOFT TISSUE IMAGING ASS DISORDERS R609 EDEMA 01-04-2017 [facility] UNSPECIFIED MEM HOSP INC D50532 PAIN IN 01-01-2017 [facility] RIGHT LLC FOREARM M7541 IMPINGEMENT 12-28-2016 [facility] SYNDROME PHYSICIANS OF RIGHT GROUP SHOULDER E785 HYPERLIPIDE 12-19-2016 [facility] OSMANY PHYSICIANS UNSPECIFIED GROUP I119 HYPERTENSIV 12-19-2016 [facility] E HEART PHYSICIANS DISEASE GROUP WITHOUT HEART FAILURE N3000 ACUTE 12-12-2016 [facility] P HEMATURIA I272 OTHER 11-27-2016 [facility] SECONDARY [facility] PULMONARY INC HYPERTENSIO N N3001 ACUTE 11-21-[address] [place] [address] [facility] WITH HOSPITAL P HEMATURIA R58967 PAIN IN 11-16-2016 [place] RIGHT MEDICAL SHOULDER IMAGING ASS K140 GLOSSITIS 11-02-2016 [facility] R918 OTHER 10-11-2016 [facility] NONSPECIFIC LLC ABNORMAL FINDING OF LUNG FIELD R0682 TACHYPNEA 09-19-2016 [facility] NOT PHYSICIANS ELSEWHERE GROUP CLASSIFIED R072 PRECORDIAL 09-04-2016 [facility] PAIN PHYSICIANS, [facility] R0789 OTHER CHEST 09-04-2016 [facility] PAIN AMBULANCE SERVICE R079 CHEST PAIN 09-04-2016 [facility] UNSPECIFIED [facility]ICAL IMAGING ASS Z955 PRESENCE OF 09-04-[address] [place] [address] [facility] ANGIOPLASTY [facility]OSPITAL P IMPLANT & GRAFT C68070 MECHANICAL 08-24-2016 [facility]ICAL PTOSIS OF SERV RIGHT FOUNDATION EYELID T96857 DERMATOCHAL 08-24-2016 [facility] MEDICAL ASIS OF SERV RIGHT EYE FOUNDATION UNSPECIFIED EYELID N90665 DERMATOCHAL 08-24-2016 [facility] MEDICAL ASIS OF SERV LEFT EYE FOUNDATION UNSPECIFIED EYELID G4730 SLEEP APNEA 06-07-2016 [facility] MEDICAL SERV UNSPECIFIED FOUNDATION E876 HYPOKALEMIA 05-29-2016 [facility] K219 GASTRO-ESOP 04-25-2016 [facility] REFLUX [facility] DISEASE [facility] P WITHOUT ESOPHAGITIS S47731 SPONDYLOSIS 04-04-2016 [facility] W/O MEDICAL MYELOPATH/R IMAGING ASS ADICULOPATH Y CERV RGN M5032 OTH CERV 04-04-2016 [facility] DISC MEDICAL DEGENERATIO IMAGING ASS N MID-CERVICA L REGION M542 CERVICALGIA 04-04-2016 [facility] M545 LOW BACK 04-04-2016 [facility] PAIN [facility]ICAL IMAGING ASS M546 PAIN IN 04-04-2016 [facility] THORACIC [facility] SPINE IMAGING ASS I413RNM UNSPECIFIED 04-04-2016 [place] INJURY OF MEDICAL NECK IMAGING ASS INITIAL ENCOUNTER N9645DI UNSPECIFIED 04-04-2016 [facility] INJURY MEDICAL LOWER BACK IMAGING ASS INITIAL ENCOUNTER K449 DIAPHRAGMAT 03-03-2016 [place] IC HERNIA [facility] W/O HOSPITAL P OBSTRUCTION OR GANGRENE Q80402 PERSONAL 03-03-2016 [place] HISTORY OF [facility] P DEPENDENCE I208 OTHER FORMS 02-25-2016 [facility] OF ANGINA PHYSICIANS PECTORIS GROUP M14274 ASHD [place] [facility] 02-25-2016 [facility] COR ART PHYSICIANS W/UNSTABLE GROUP ANGINA PECTORIS E662 MORBID 02-21-[address] [facility] OB[facility]ITY [facility]OSPITAL P W/ALVEOLAR HYPOVENTILA TION B03953 ASHD [place] [facility] 02-21-2016 [facility] COR ARTFORMERLY [facility] W/[facility] HOSPITAL P ANGINA PECTORIS M654 RADIAL 02-16-2016 [facility] STYLOID [facility] TENOSYNOVIT INC IS DE QUERVAIN U48793 OTHER 02-16-2016 [facility] SYNOVITIS [facility] AND INC TENOSYNOVIT IS RIGHT HAND I209 ANGINA 12-08-2015 [place] [facility]IS REGIONAL UNSPECIFIED MEDICAL D59407 ASHD [place] 12-08-2015 [facility] COR ART PHYSICIANS W/OTH FORMS GROUP ANGINA PECTORIS R0600 DYSPNEA 11-29-2015 [facility] UNSPECIFIED [facility] HOSP INC P982N0V CONCUSSION 11-20-2015 [facility] W/LOC 30 [facility] P INITIAL ENCOUNTER [id number] UNSPECIFIED 11-20-2015 [place] INJURY OF MEDICAL HEAD IMAGING ASS INITIAL ENCOUNTER F019GJV STRAIN 11-20-2015 [place] MUSCLE [facility] TENDON [facility] P NECK LEVL INIT ENC B48309G CONTUSION 11-20-2015 [facility] UNS BACK [facility] THORAX [facility] P INITIAL ENCOUNTER Z043 ENCOUNTER 11-20-2015 [facility] EXAM & MEDICAL OBSERVATION IMAGING ASS FOLLOW OT ACCIDENT R339 RETENTION 07-12-2015 [facility] JEANIE OF URINE UNSPECIFIED F53565 PAIN IN 06-30-2015 [place] LEFT MEDICAL FINGERS IMAGING ASS Q5031EA UNSPECIFIED 06-30-2015 [facility] IN[facility] MEDICAL WRIST HAND IMAGING ASS FINGERS INITIAL B353 TINEA PEDIS 06-08-2015 [facility] INC 12588 OBSTRUCTIVE 05-04-2015 [facility] [place] [address] UNSPEC HTN 05-04-2015 [facility] HEART LAR DISEASE [facility]ANTS WITHOUT O HEART FAIL 98010 COR 05-04-2015 [facility] ATHEROSLERO [facility] UNSPEC INC TYPE VESSEL [place]/MAHSA T 4160 PRIMARY 05-04-2015 [facility] PULMONARY LAR HYPERTENSIO CONSULTANTS N O 4168 OTHER 05-04-2015 [facility] CHRONIC [facility] PULMONARY INC HEART DISEASES 496 CHRONIC 05-04-2015 [facility] AIRWAY [facility] OBSTRUCTION INC NEC 59215 05-04-2015 [facility] ION SER V7284 UNSPECIFIED 05-04-2015 [facility] PRE-OPERATI INC VE EXAMINATION 3699 UNSPECIFIED 04-28-2015 [facility] LOSS 72290 UNSPECIFIED 04-28-2015 [place] PTOSIS [facility] EYELID V7283 OTHER 04-28-2015 [facility] PRE-OPERATI VE EXAMINATION 60686 ACUTE 02-16-2015 [facility] RESPIRATORY FAILURE 4111 INTERMEDIAT 01-25-2015 [facility] E CORONARY LAR SYNDROME CONSULTANTS O 4293 CARDIOMEGAL 01-23-2015 [facility] Y [facility] 5920 CALCULUS OF 01-23-2015 [facility] KIDNEY [facility] 40087 UNSPECIFIED 01-23-2015 [facility] RETENTION MEDICAL OF URINE IMAGING ASS 23124 ABDOMINAL 01-23-2015 [facility] PAIN RIGHT MEDICAL LOWER IMAGING ASS QUADRANT 93677 PAIN IN 01-03-2015 [place] JOINT MEDICAL PELVIC IMAGING ASS REGION AND THIGH 33319 DISPLCMT 01-03-2015 [facility] THOR MEDICAL INTERVERT IMAGING ASS DISC WITHOUT MYELOPATHY 7231 CERVICALGIA 01-03-2015 [facility] 7241 PAIN IN 01-03-2015 [facility] THORACIC MEDICAL SPINE IMAGING ASS 40238 CHEST PAIN 01-03-2015 [place] UNSPECIFIED [facility]ICAL IMAGING ASS 57394 HYPERTENSIV 12-28-2014 [facility] E HEART [facility] DISEASE INC UNSPEC W/HEART FAIL 4280 CONGESTIVE 12-28-2014 [facility] HEART [facility] FAILURE INC UNSPECIFIED 10425 ESOPHAGEAL 12-28-2014 [facility] REFLUX [facility]OS[facility] INC 95983 SHORTNESS 12-28-2014 [place] OF BREATH MEDICAL IMAGING ASS 07226 OTHER 12-18-2014 [facility] DYSPNEA AND [place] [address] MECHANICAL 04-01-2014 [facility] PTOSIS SERV FOUNDATION 2449 UNSPECIFIED 03-18-2014 [facility] HYPOTHYROID INC ISM 90992 PANNUS 02-18-2014 [facility] 5950 ACUTE 12-18-2013 [place] CYSTITIS [facility] P 32368 NOCTURNAL 12-18-2013 [place] ENURESIS [facility] P 28046 OTHER 11-24-2013 [facility] MUCOPURULEN T CONJUNCTIVI TIS 07463 UNSPECIFIED 10-02-2013 [place] URINARY [facility] P E 3831 CHRONIC 09-05-2013 [facility] MASTOIDITIS [facility]OS[facility] INC 3839 UNSPECIFIED 09-05-2013 [facility] MASTOIDITIS INC 94519 UNSPECIFIED 09-05-2013 [facility] OTALGIA [facility] INC 470 DEVIATED 09-05-2013 [facility] NASAL MEDICAL SEPTUM IMAGING ASS 77093 OTHER 09-05-2013 [place] DISEASES OF MEDICAL NASAL IMAGING ASS CAVITY AND SINUSES 92927 ARTHRALGIA 09-05-2013 [facility] TEMPOROMAND INC IBULAR JOINT 21892 PAIN IN 08-15-2013 [facility] JOINT, PHYSICIANS FOREARM GROUP 93099 PAIN IN 08-15-2013 [place] JOINT, MEM HOS[facility] LOWER LEG INC 70508 PLICA 08-15-2013 [facility] SYNDROME PHYSICIANS GROUP 3540 CARPAL 06-23-2013 [place] TUNNEL [facility] HOSP SYNDROME INC V5869 LONG-TERM 06-23-2013 [place] (CURRENT) MEM [facility] USE OF INC OTHER MEDICATIONS 2724 OTHER AND 05-23-2013 [place] UNSPECIFIED [facility] P HYPERLIPIDE OSMANY 5180 PULMONARY 05-23-2013 [facility] COLLAPSE [facility] ASS 83237 ACUTE 05-08-2013 [facility]EN[facility] FOLLICULAR JAM CONJUNCTIVI TIS 38898 CONTACT AND 05-08-2013 [facility] ALLERGIC JAM DERMATITIS OF EYELID 02001 VITREOUS 05-08-2013 [facility] DEGENERATIO JAM N 3688 OTHER 04-16-2013 [facility] SPECIFIED [facility]OLOGY [facility]ISUAL [facility] [place] DISTURBANCE S 7820 DISTURBANCE 04-16-2013 [facility] OF SKIN NEUROLOGY SENSATION [facility] [place] 1101 DERMATOPHYT 04-11-2013 [facility] B[facility] OSIS OF NAIL 37570 ATHEROSCLER 04-11-2013 [facility] OSIS [place] ART EXTREMITIES UNSPEC 7011 ACQUIRED 04-11-2013 [facility] B[facility] KERATODERMA 7295 PAIN IN 04-11-2013 [facility] B[facility] SOFT TISSUES OF LIMB 37797 SPONDYLOSIS 03-19-2013 [facility] UNSPEC MEDICAL SITE W/O IMAGING ASS MENTION MYELOPATHY 7238 OTHER 03-19-2013 [place] SYNDROMES MEDICAL AFFECTING IMAGING ASS CERVICAL REGION 17125 DIAB W/O 02-13-2013 [facility] COMP TYPE [facility] II/UNS NOT INC STATED UNCNTRL 15036 BARRETTS 02-13-2013 [facility] ESOPHAGUS SUNITHA & DUBILIER 7871 HEARTBURN 02-13-2013 [place] [facility] INC 36976 ONYCHIA AND 02-06-2013 [facility] PARONYCHIA AND ANKLE OF TOE CENTER 7030 INGROWING 02-06-2013 [facility] NAIL AND ANKLE CENTER 340 MULTIPLE 01-30-2013 [place] SCLEROSIS [facility] 4149 UNSPECIFIED 01-30-2013 [facility] HEART DISEASE 44396 OTHER 01-30-2013 [place] CONVULSIONS [facility] 18999 UNSPECIFIED 01-30-[address] [place] [address] [facility] APNEA [facility] 54303 HEMATURIA 01-15-2013 [place] UNSPECIFIED [facility] P 61193 ABDOMINAL 01-15-2013 [facility] PA[facility], AMBULANCE UNSPECIFIED SERVICE SITE 08981 PUNCTATE 01-08-2013 [facility] N EMERGENCY PHYSI 72113 BLEPHARITIS 01-08-2013 [facility] UNSPECIFIED V7644 SPECIAL 11-13-2012 COMBINED SCREENING PHYSICIANS MALIGNANT LA NEOPLASM OF PROSTATE 5990 URINARY 11-11-2012 COMBINED TRACT PHYSICIANS INFECTION LA SITE NOT SPECIFIED 4019 UNSPECIFIED 10-28-2012 [facility] ESSENTIAL CARDIOLOGY HYPERTENSIO CLINIC N 66951 CORONARY 10-28-2012 [facility] ATHEROSCLER CARDIOLOGY OSIS [place] [facility] CORONARY ARTERY 71969 PAIN IN 10-27-2012 [facility], [place] [address] PAIN IN 10-27-2012 [facility], MOBILE UPPER ARM DIAGNOSTIC SE 7823 EDEMA 09-19-2012 BRAUDIS JAM 53315 DIVERTICULO 08-08-2012 [facility] SIS OF MEM HOS[facility] COLON INC 5693 HEMORRHAGE 08-08-2012 [facility] OF RECTUM [facility] AND ANUS INC V160 FM HX 08-01-2012 C ANTONETTE MALIGNANT DORIS NEOPLASM PSC GASTROINTES TINAL TRACT V7651 SPECIAL 08-01-2012 C ANTONETTE SCREENING DORIS FOR PSC MALIGNANT NEOPLASMS COLON 4139 OTHER AND 03-25-2012 HAROLDO MARTINEZ UNSPECIFIED DWI ANGINA PECTORIS 5533 DIAPHRAGMAT 03-10-2012 [place] MARTHA W/O MEDICAL MENTION IMAGING ASS OBSTRUCTION /GANGREN 5718 OTHER 03-10-2012 [facility] CHRONIC MEDICAL NONALCOHOLI IMAGING ASS C LIVER DISEASE 5939 UNSPECIFIED 03-10-2012 [place] DISORDER MEDICAL OF KIDNEY IMAGING ASS AND URETER 7881 DYSURIA 03-07-2012 [place] [facility] INC 4589 UNSPECIFIED 03-04-2012 WEHRMAN III MARCY HYPOTENSION 5849 ACUTE 03-04-2012 WEHRMAN III KIDNEY MARCY FAILURE UNSPECIFIED 7224 DEGENERATIO 01-25-2012 [facility] OF MEDICAL CERVICAL IMAGING ASS INTERVERTEB RAL DISC 7842 SWELLING 01-25-2012 WEHRMAN III MASS OR MARCY LUMP IN HEAD AND NECK 7856 ENLARGEMENT 01-25-2012 [place] OF LYMPH MEDICAL NODES IMAGING ASS 84931 DYSPHAGIA 01-25-2012 [facility] UNSPECIFIED AMBULANCE SERVICE 1122 CANDIDIASIS 01-11-2012 [facility] MARCY OF OTHER UROGENITAL SITES 03760 OTHER 01-11-2012 [facility] CANDIDIASIS [facility] OF OTHER INC SPECIFIED SITES 7912 HEMOGLOBINU 01-11-2012 MYES[facility] SHARON AMBULANCE SERVICE 56754 NONSPECIFIC 09-11-2011 ZEKE BAR ABNORMAL ELECTROCARD IOGRAM 78199 HYPERSOMNIA 07-18-2011 [facility] WITH SLEEP ERNST APNEA UNSPECIFIED 83085 ABDOMINAL 07-04-2011 [facility], AMBULANCE PERIUMBILIC SERVICE 6010 ACUTE 07-03-2011 [facility] ARMANDO PROSTATITIS 6019 UNSPECIFIED 07-03-2011 [facility] PROSTATITIS INC 99023 ASTHMA, 06-14-2011 BESSON JEANIE UNSPECIFIED , UNSPECIFIED STATUS 83835 OTHER CHEST 06-14-2011 [facility] JEANIE PAIN 53506 OTHER 06-13-2011 [place] NONSPECIFIC MEDICAL ABNORMAL IMAGING ASS FINDING OF LUNG FIELD 90378 MORBID 05-31-2011 [facility] OBESITY SERV FOUNDATIO 4778 ALLERGIC 05-31-2011 [facility] MEDICAL RHINITIS SERV DUE TO FOUNDATIO OTHER ALLERGEN 50981 APNEA 05-31-2011 [facility] HOS[facility] INC 7019 UNSPECIFIED 05-19-2011 OR[facility] PATHOLOGY HYPERTROPHI LABORATORY C&ATROPHIC CONDITION SKIN 5210 DENTAL 05-16-2011 THE IMPLANT CARIES & ORAL SURGERY C 32921 UNSPECIFIED 05-08-2011 [facility] BLEPHAROCON JUNCTIVITIS 7862 COUGH 04-26-2011 [facility] 23978 UNSPECIFIED 03-30-2011 [facility] 70708 PAIN IN 03-30-2011 [facility], HAND MOBILE DIAGNOSTIC SE 6961 OTHER 03-23-2011 [facility] [place] PSORIASIS URGENT AND SIMILAR TREATMENT A DISORDERS 14382 OBESITY, 03-12-2011 [facility] [place] UNSPECIFIED URGENT TREATMENT A 08989 INSOMNIA 03-12-2011 [facility] [place] UNSPECIFIED URGENT TREATMENT A 514 PULMONARY 03-02-2011 [facility] CONGESTION MOBILE AND DIAGNOSTIC HYPOSTASIS SE 7242 LUMBAGO 02-25-2011 [facility] [place] URGENT TREATMENT A 7245 UNSPECIFIED 02-10-2011 [facility] V771 SCREENING 02-10-2011 [facility] DIABETES OF [place] PS MELLITUS 5968 OTHER 12-28-2010 [facility] [place] SPECIFIED RADIOLOGY DISORDERS OF BLADDER 67704 DIARRHEA 12-28-2010 [facility] M [...] 0 RE 34 IN 94 17 17 [place] G [address] AR AE US MA L CY S 0. 5% LL C EY E DR PS TR 45 01 10 0 85 10 ME 15 GA Ac OL 80 -1 -1 0. D 13 IN ti AM 20 4- 6- 00 CA 30 EY ve IN 35 20 20 0 RE 35 E 65 17 17 WY SA 3 PH CH LI AR AE CY MA L LA CY S TE LL 10 C % CR EA M MA 00 06 10 0 30 30 ME 15 GA Ac GN 60 -2 -1 0. D 11 IN ti ES 30 1- 4- 00 CA 55 EY ve IU 20 20 20 0 RE 26 M 92 17 17 WY OX 2 PH CH ID AR AE E MA L 40 CY S 0 MG LL C TA BL ET SM 49 10 10 0 29 1 ME 15 GA Ac 34 -0 -1 60 D 11 IN ti MA 80 6- 1- .0 CA 02 EY ve GN 69 20 20 00 RE 11 ES 64 17 17 WY IU 9 PH CH M AR AE CI MA L TR CY S AT E LL SO C BRYAN TI ON ST 00 03 10 0 30 30 ME 15 GA Ac OO 53 -1 -0 0. D 04 IN ti L 61 9- 2- 00 CA 39 EY ve SO 06 20 20 0 RE 09 FT 41 17 17 W[place] EN 0 PH CH ER AR AE MA L 25 CY S 0 MG LL C SO FT GE L LO 00 03 10 0 30 30 ME 15 GA Ac RA 78 -1 -0 0. D 04 IN ti TA 15 9- 2- 00 CA 39 EY ve DI 07 20 20 0 RE 10 NE 70 17 17 [place] 1 PH CH 10 AR AE MA L MG CY S TA LL BL C ET BRYAN 00 03 09 0 30 7 ME 15 GA Ac BR 90 -1 -2 0. D 04 IN ti IC 46 8- 9- 00 CA 01 EY ve AT 32 20 20 0 RE 54 IN 94 17 17 [place] G [address] AR AE US MA L CY S 0. 5% LL C EY E DR PS 00 03 09 0 30 30 ME 15 GA Ac PI 90 -1 -2 0. D 00 IN ti RI 46 9- 6- 00 CA 60 EY ve N 28 20 20 0 RE 67 81 88 17 17 [place] 9 PH CH MG AR AE MA L CH CY S EW AB LL LE C TA BL ET MA 00 06 09 0 30 30 ME 14 GA Ac GN 60 -2 -1 0. D 94 IN ti ES 30 1- 5- 00 CA 75 EY ve IU 20 20 20 0 RE 67 M 92 17 17 [place] OX 2 PH CH ID AR AE E MA L 40 CY S 0 MG LL C TA BL ET AC 00 03 09 0 35 15 ME 14 GA Ac ID 90 -0 -1 50 D 96 IN ti 47 4- 5- .0 CA 35 EY ve GO 72 20 20 00 RE 99 NE 71 17 17 [place] 4 PH CH AN AR AE TA MA L CI CY S D LI LL QU C ID ST 00 03 09 0 30 30 ME 14 GA Ac OO 53 -1 -0 0. D 87 IN ti L 61 9- 2- 00 CA 29 EY ve SO 06 20 20 0 RE 28 FT 41 17 17 W[place] EN 0 PH CH ER AR AE MA L 25 CY S 0 MG LL C SO FT GE L LO 00 03 09 0 30 30 ME 14 GA Ac RA 78 -1 -0 0. D 87 IN ti TA 15 9- 2- 00 CA 29 EY ve DI 07 20 20 0 RE 29 NE 70 17 17 [place] 1 PH CH 10 AR AE MA L MG CY S TA LL BL C ET 00 03 08 0 30 30 ME 14 GA Ac PI 90 -1 -2 0. D 83 IN ti RI 46 9- 8- 00 CA 86 EY ve N 28 20 20 0 RE 95 81 88 17 17 [place] 9 PH CH MG AR AE MA L CH CY S EW AB LL LE C TA BL ET BRYAN 00 03 08 0 30 7 ME 14 GA Ac BR 90 -1 -2 0. D 82 IN ti IC 46 8- 4- 00 CA 01 EY ve AT 32 20 20 0 RE 42 IN 94 17 17 [place] G [address] AR AE US MA L CY S 0. 5% LL C EY E DR PS BRYAN 00 03 08 0 30 7 ME 14 GA Ac BR 90 -1 -1 0. D 79 IN ti IC 46 8- 8- 00 CA 87 EY ve AT 32 20 20 0 RE 03 IN 94 17 17 [place] G [address] AR AE US MA L CY S 0. 5% LL C EY E DR JORDON ARCE 00 06 08 0 30 30 ME 14 GA Ac GN 60 -2 -1 0. D 77 IN ti ES 30 1- 6- 00 CA 18 EY ve IU 20 20 20 0 RE 99 M 92 17 17 [place] OX 2 PH CH ID AR AE E MA L 40 CY S 0 MG LL C TA BL ET ST 00 03 08 0 30 30 ME 14 GA Ac OO 53 -1 -0 0. D 70 IN ti L 61 9- 4- 00 CA 77 EY ve SO 06 20 20 0 RE 91 FT 41 17 17 W[place] EN 0 PH CH ER AR AE MA L 25 CY S 0 MG LL C SO FT GE L LO 00 03 08 0 30 30 ME 14 GA Ac RA 78 -1 -0 0. D 70 IN ti TA 15 9- 4- 00 CA 77 EY ve DI 07 20 20 0 RE 92 NE 70 17 17 [place] 1 PH CH 10 AR AE MA L MG CY S TA LL BL C ET 00 03 07 0 30 30 ME 14 GA Ac PI 90 -1 -3 0. D 69 IN ti RI 46 9- 1- 00 CA 21 EY ve N 28 20 20 0 RE 07 81 88 17 17 [place] 9 PH CH MG AR AE MA L CH CY S EW AB LL LE C TA BL ET BRYAN 00 03 07 0 30 7 ME 14 GA Ac BR 90 -1 -2 0. D 68 IN ti IC 46 8- 9- 00 CA 73 EY ve AT 32 20 20 0 RE 52 IN 94 17 17 [place] G [address] AR AE US MA L CY S 0. 5% LL C EY E DR JORDON ARCE 00 06 07 0 30 30 ME 14 GA Ac GN 60 -2 -1 0. D 63 IN ti ES 30 1- 9- 00 CA 33 EY ve IU 20 20 20 0 RE 43 M 92 17 17 WY OX 2 PH CH ID AR AE E MA L 40 CY S 0 MG LL C TA BL ET AC 00 03 07 0 35 15 ME 14 GA Ac ID 90 -0 -1 50 D 62 IN ti 47 4- 8- .0 CA 01 EY ve GO 72 20 20 00 RE 68 NE 71 17 17 WY 4 PH CH AN AR AE TA MA L CI CY S D LI LL QU C ID BRYAN 00 03 07 0 30 7 ME 14 GA Ac BR 90 -1 -1 0. D 60 IN ti IC 46 8- 5- 00 CA 60 EY ve AT 32 20 20 0 RE 69 IN 94 17 17 W[place] G [address] AR AE US MA L CY S 0. 5% LL C EY E DR PS ST 00 03 07 0 30 30 ME 14 GA Ac OO 53 -1 -0 0. D 53 IN ti L 61 9- 6- 00 CA 43 EY ve SO 06 20 20 0 RE 01 FT 41 17 17 WY EN 0 PH CH ER AR AE MA L 25 CY S 0 MG LL C SO FT GE L LO 00 03 07 0 30 30 ME 14 GA Ac RA 78 -1 -0 0. D 53 IN ti TA 15 9- 6- 00 CA 43 EY ve DI 07 20 20 0 RE 02 NE 70 17 17 WY 1 PH CH 10 AR AE MA L MG CY S TA LL BL C ET 00 03 07 0 30 30 ME 14 GA Ac PI 90 -1 -0 0. D 50 IN ti RI 46 9- 3- 00 CA 60 EY ve N 28 20 20 0 RE 43 81 88 17 17 WY 9 PH CH MG AR AE MA L CH CY S EW AB LL LE C TA BL ET BRYAN 00 03 06 0 30 7 ME 14 GA Ac BR 90 -1 -3 0. D 50 IN ti IC 46 8- 0- 00 CA 79 EY ve AT 32 20 20 0 RE 90 IN 94 17 17 W[place] G [address] AR AE US MA L CY S 0. 5% LL C EY E PS BRYAN 00 03 06 0 30 7 ME 14 GA Ac BR 90 -1 -1 0. D 42 IN ti IC 46 8- 7- 00 CA 66 EY ve AT 32 20 20 0 RE 58 IN 94 17 17 W[place] G [address] AR AE US MA L CY S 0. 5% LL C EY E PS AC 00 03 06 0 35 15 ME 14 GA Ac ID 90 -0 -1 50 D 41 IN ti 47 4- 6- .0 CA 27 EY ve GO 72 20 20 00 RE 46 NE 71 17 17 WY 4 PH CH AN AR AE TA MA L CI CY S D LI LL QU C ID LO 00 03 06 0 30 30 ME 14 GA Ac RA 78 -1 -0 0. D 33 IN ti TA 15 9- 7- 00 CA 82 EY ve DI 07 20 20 0 RE 42 NE 70 17 17 WY 1 PH CH 10 AR AE MA L MG CY S TA LL BL C ET ST 00 03 06 0 30 30 ME 14 GA Ac OO 53 -1 -0 0. D 33 IN ti L 61 9- 7- 00 CA 82 EY ve SO 06 20 20 0 RE 41 FT 41 17 17 WY EN 0 PH CH ER AR AE MA L 25 CY S 0 MG LL C SO FT GE L RO 00 03 06 0 47 10 ME 14 GA Ac BA 90 -1 -0 30 D 33 IN ti FE 40 9- 5- .0 CA 30 EY ve N 06 20 20 00 RE 41 10 11 17 17 WY 0 6 PH CH MG AR AE /5 MA L CY S ML LL SY C RU P 00 03 06 0 30 30 ME 14 GA Ac PI 90 -1 -0 0. D 31 IN ti RI 46 9- 3- 00 CA 43 EY ve N 28 20 20 0 RE 67 81 88 17 17 WY 9 PH CH MG AR AE MA L CH CY S EW AB LL LE C TA BL ET MA 00 03 06 0 30 5 ME 14 GA Ac PA 90 -1 -0 0. D 31 IN ti P 41 9- 2- 00 CA 57 EY ve 50 98 20 20 0 RE 45 0 86 17 17 WY MG 1 PH CH AR AE TA MA L BL CY S ET LL C MA 00 12 05 0 30 30 ME 14 GA Ac GN 60 -0 -2 0. D 24 IN ti ES 30 3- 4- 00 CA 08 EY ve IU 20 20 20 0 RE 98 M 92 16 17 WY OX 2 PH CH ID AR AE E MA L 40 CY S 0 MG LL C TA BL ET BRYAN 00 03 05 0 50 7 ME 14 GA Ac BR 90 -1 -2 0. D 23 IN ti IC 46 8- 2- 00 CA 59 EY ve AT 32 20 20 0 RE 61 IN 95 17 17 [place] G [address] AR AE US MA L CY S 0. 5% LL C EY E DR PS AC 00 03 05 0 35 15 ME 14 GA Ac ID 90 -0 -1 50 D 22 IN ti 47 4- 8- .0 CA 17 EY ve GO 72 20 20 00 RE 35 NE 71 17 17 WY 4 PH CH AN AR AE TA MA L CI CY S D LI LL QU C ID ST 00 03 05 0 30 30 ME 14 GA Ac OO 53 -1 -1 0. D 17 IN ti L 61 9- 0- 00 CA 23 EY ve SO 06 20 20 0 RE 20 FT 41 17 17 WY EN 0 PH CH ER AR AE MA L 25 CY S 0 MG LL C SO FT GE L LO 00 03 05 0 30 30 ME 14 GA Ac RA 78 -1 -1 0. D 17 IN ti TA 15 9- 0- 00 CA 23 EY ve DI 07 20 20 0 RE 21 NE 70 17 17 WY 1 PH CH 10 AR AE MA L MG CY S TA LL BL C ET 00 03 05 0 30 30 ME 14 GA Ac PI 90 -1 -0 0. D 14 IN ti RI 46 9- 5- 00 CA 96 EY ve N 28 20 20 0 RE 45 81 88 17 17 WY 9 PH CH MG AR AE MA L CH CY S EW AB LL LE C TA BL ET BRYAN 00 03 05 0 30 7 ME 14 GA Ac BR 90 -1 -0 0. D 15 IN ti IC 46 8- 5- 00 CA 88 EY ve AT 32 20 20 0 RE 83 IN 94 17 17 W[place] G [address] AR AE US MA L CY S 0. 5% LL C EY E DR PS MA 00 12 04 0 30 30 ME 14 GA Ac GN 60 -0 -2 0. D 09 IN ti ES 30 3- 6- 00 CA 84 EY ve IU 20 20 20 0 RE 88 M 92 16 17 WY OX 2 PH CH ID AR AE [...] AR AR ME MA D CY W MO OT LL EC C T PA ST E RE 53 11 11 0 11 5 ME 13 AR Ac ME 32 -2 -2 30 D 36 NO ti DY 90 8- 8- .0 CA 88 LD ve 16 20 20 00 RE 63 CA 54 16 16 RI LA 4 PH CH ZI AR AR ME MA D CY W MO OT LL EC C T PA ST [...] AR AR ME MA D CY W MO OT LL EC C T PA ST [...] AR AR ME MA D CY W MO OT LL EC C T PA ST [...] AR AR ME MA D CY W MO OT LL EC C T PA ST [...] AR AR ME MA D CY W MO OT LL EC C T PA ST [...] TA CY W BL ET LL C MO 37 08 10 3 30 30 ME [...] TA CY W BL ET LL C MO 37 08 09 3 30 30 ME [...] D BL CY W ET LL C MO 37 08 08 3 30 30 ME [...] DOS Code Location Performer Comment URNLS DIP [id number] STICK/TAB ASSOCIATE ASSOCIATE LET S S REAGENT AUTO MICROSCOP Y ALBUMIN [address] MICROALBU ASSOCIATE ASSOCIATE MIN S S QUANTIATI VE TRAVEL [address] NEC SET OFF PRESS OPERATOR ASSOCIATE SPEC; S S PRORAT ACTL MILE J CARLOS V G0471 [address] FAGOT HEATER HELPER/URN ASSOCIATE ASSOCIATE MIREILLE CATH S S IND SNF/LAB BHALF MANAGER TRADE LIPID [address] HEALTH ASSOCIATE ASSOCIATE S S J CARLOS V G0471 [address] HEALTH FAGOT HEATER HELPER/URN ASSOCIATE ASSOCIATE SMFrancisco CATH S S IND SNF/LAB BHALF MANAGER TRADE TRAVEL [address] NEC SET OFF PRESS OPERATOR ASSOCIATE SPEC; S S PRORAT ACTL MILE BLOOD [address] [place] [address] HEALTH HEALTH COMPLETE ASSOCIATE ASSOCIATE AUTO&AUTO S S DIFRNTL WBC BLOOD [address] HEMATOCRI ASSOCIATE ASSOCIATE T S S BLOOD [address] HEMOGLOBI ASSOCIATE ASSOCIATE N S S TRAVEL [address] NEC SET OFF PRESS OPERATOR ASSOCIATE SPEC; S S PRORAT ACTL MILE J CARLOS V G0471 [address] HEALTH FAGOT HEATER HELPER/URN ASSOCIATE ASSOCIATE SMP CATH S S IND SNF/LAB BHALF MANAGER TRADE COLOREC G0328 LA[facility]A GALLO SCR; 7 [facility] FOB TST INC INC IMMUNO 1-3 SIMULTANE OUS URNLS DIP 33742 [facility] STICK/TAB INC INC LET REAGENT AUTO MICROSCOP Y O2 CONC 1 E1390 [facility] [place] 7 [facility] 85%/>02 E E CONC AT PRSC FLW RATE BLOOD [address] HEALTH COMPLETE ASSOCIATE ASSOCIATE AUTO&AUTO S S DIFRNTL WBC TRAVEL [address] NEC SET OFF PRESS OPERATOR ASSOCIATE SPEC; S S PRORAT ACTL MILE J CARLOS V G0471 [address] FAGOT HEATER HELPER/URN ASSOCIATE ASSOCIATE MIREILLE CATH S S IND SNF/LAB BHALF MANAGER TRADE PRTBLE E0434 MARLYN CLINE LQD O2 7 [facility] SYS RENT; E E RESRVOR HUMIDFR FLWMTR J CARLOS V G0471 [address] FAGOT HEATER HELPER/URN ASSOCIATE ASSOCIATE MIREILLE CATH S S IND SNF/LAB BHALF MANAGER TRADE TRAVEL [address] NEC SET OFF PRESS OPERATOR ASSOCIATE SPEC; S S PRORAT ACTL MILE BLOOD [address] COMPLETE ASSOCIATE ASSOCIATE AUTO&AUTO S S DIFRNTL WBC CT SOFT 52935 [facility] TISSUE 7 MEDICAL NECK W/O IMAGING CONTRAST ASS MATERIAL CT THORAX 27895 NICKI ORDONEZ W/O 7 MEDICAL CONTRAST IMAGING MATERIAL ASS HEMOGLOBI 41172 CAMBODIAN CAMBODIAN N [address] [place] [address] [place] [address] CAMBODIAN CAMBODIAN THYROID [address] [place] [address] STIMULATI ASSOCIATE ASSOCIATE FELIX Galindo S HORMONE TSH TRAVEL [address] NEC SET OFF PRESS OPERATOR ASSOCIATE SPEC; S S PRORAT ACTL MILE J CARLOS V G0471 [address] [address] HEALTH FAGOT HEATER HELPER/URN ASSOCIATE ASSOCIATE MIREILLE SANCHEZ S S IND SNF/LAB BHALF MANAGER TRADE URNLS DIP [address] LET RGNT P NON-AUTO W/O MICRSCP O2 CONC 1 E1390 EDGER[place]ALIAT [place] [address] HEALTHCAR HEALTHCAR 85%/>02 E E CONC AT PRSC FLW RATE O2 CONC 1 E1390 [place] [address] HEALTHCAR HEALTHCAR 85%/>02 E E CONC AT PRSC FLW RATE DEBRIDEME 24164 SPECIAL SKRIP JR. NT NAIL 7 CARE ANY PODIATRY METHOD OF YAMIL 6/> J CARLOS V G0471 [address] HEALTH FAGOT HEATER HELPER/URN ASSOCIATE ASSOCIATE MIREILLE SANCHEZ S S IND SNF/LAB BHALF MANAGER TRADE TRAVEL [address] NEC SET OFF PRESS OPERATOR ASSOCIATE SPEC; S S PRORAT ACTL MILE LIPID 92903 [place] [address] HEALTH HEALTH ASSOCIATE ASSOCIATE S S NONEMERGE A0130 FEDERATED FEDERATED NCY 7 TRANS TRANSPORT TRANSPORT SERVBLUEG ATION: ATION SER TOSHA WHEELHOMAI R VAN RADIOLOGI 02300 RONNELL REYNAGA C 7 [facility] EXAMINATI ON TIBIA & FIBULA 2 VIEWS TRANS R0070 RONNELL REYNAGA PRTBL 7 [facility] X-RAY EQP&PERS RICHMOND/NRS RICHMOND-TRIP 1 PT SET-UP Q0092 RONNELL REYNAGA PORTABLE 7 [facility] X-RAY EQUIPMENT RADIOLOGI 47723 [facility] EXAMINATI ON KNEE 1/2 VIEWS RADIOLOGI 13123 [facility] EXAMINATI ON FEMUR MINIMUM 2 VIEWS J CARLOS V G0471 CAM[facility]IAN CAMBODIAN BLD 7 HEALTH HEALTH FAGOT HEATER HELPER/URN ASSOCIATE ASSOCIATE MIREILLE CATH S S IND SNF/LAB BHALF MANAGER TRADE TRAVEL 1 P9603 CAMBODIAN CAMBODIAN [facility] MED 7 HEALTH HEALTH NEC SET OFF PRESS OPERATOR ASSOCIATE SPEC; S S PRORAT ACTL MILE URNLS DIP 07332 LAURA SANCHEZ 7 [facility] STICK/TAB INC INC LET REAGENT AUTO MICROSCOP Y BLOOD 96142 CAM[facility]IAN CAMBODIAN COUNT 7 HEALTH HEALTH COMPLETE ASSOCIATE ASSOCIATE AUTO&AUTO S S DIFRNTL WBC COMPREHEN 09026 CAMBODIAN CAMBODIAN SIVE 7 HEALTH HEALTH METABOLIC ASSOCIATE ASSOCIATE PANEL S S SET-UP Q0092 [facility] 7 [facility] X-RAY EQUIPMENT RADIOLOGI 41976 [facility] EXAMINATI ON CHEST SINGLE VIEW FRONTAL TRANS R0070 [facility] PRTBL 7 LLC LLC X-RAY EQP&PERS RICHMOND/NRS RICHMOND-TRIP 1 PT RADEX 80046 [place] ORDONEZ WRIST 7 MEDICAL COMPLETE IMAGING MINIMUM 3 ASS VIEWS O2 CONC 1 E1390 [facility] 7 HEALTHCAR HEALTHCAR 85%/>02 E E CONC AT PRS FLW RATE RADEX 38551 [facility] WRIST 7 LLC LLC COMPLETE MINIMUM 3 VIEWS RADEX 87849 [facility] FOREARM 2 7 LLC LLC [...] TOSHA KAVITHA Dobson VAN TRAVEL 1 P9603 [place] [address] HEALTH HEALTH NEC SET OFF PRESS OPERATOR ASSOCIATE SPEC; S S PRORAT ACTL MILE J CARLOS V G0471 [facility] BLD HEALTH HEALTH FAGOT HEATER HELPER/URN ASSOCIATE ASSOCIATE SMP CATH S S IND SNF/LAB BHALF MANAGER TRADE NATRIURET [address]47[address] [place] [address] HEALTH HEALTH PEPTIDE ASSOCIATE ASSOCIATE S S ECG 28316 LAURA SANCHEZ ROUTINE 7 [facility] ECG INC INC W/LEAST 12 LDS TRCG ONLY W/O I&R NONEMERGE A0130 FEDERATED FEDERATED NCY 7 TRANS TRANSPORT TRANSPORT SERVBLUEG ATION: ATION SER TOSHA KAVITHA Dobson VAN ECG 57309 [facility] ROUTINE 7 PHYSICIAN ECG S GROUP W/LEAST 12 LDS I&R ONLY CULTURE 01696 [facility] BACTERIAL HEALTH HEALTH ASSOCIATE ASSOCIATE QUANTTATI Josie Galindo VE COLONY COUNT URINE URNLS DIP [address] STICK/TAB ASSOCIATE ASSOCIATE LET S S REAGENT AUTO MICROSCOP Y NONEMERGE A0130 FEDERATED FEDERATED NCY 7 TRANS TRANSPORT TRANSPORT SERVBLUEG ATION: ATION SER TOSHA Dobson VAN O2 CONC 1 E1390 [place] [address] [facility] HEALTH[facility] 85%/>02 E E CONC AT [facility] FLW RATE GAS 40155 LAURA SANCHEZ DILUT/WAS 7 [facility] HOUT LUNG INC INC VOL W/WO DISTRIB VENT&[place] [address] LAURA SANCHEZ DIFFUSING 7 [facility] CAPACITY INC INC NONEMERGE A0130 FEDERATED FEDERATED NCY 7 TRANS TRANSPORT TRANSPORT SERVBLUEG ATION: ATION SER TOSHA Dobson VAN BRNCDILAT 92919 LAURA SANCHEZ RSPSE 7 [facility] SPMTRY INC INC PRE&POST- BRNCDILAT ADMN PRESSURIZ 27721 LAURA SANCHEZ ED/NONPRE 7 [facility] SSURIZED INC INC INHALATIO N TREATMENT CULTURE 57395 LAURA SANCHEZ BCT 7 [facility] ISOL&PRSM INC INC PTV ID ISOLATE EA URINE CULTURE 45689 LAURA SANCHEZ BACTERIAL 7 [facility] INC INC QUANTTATI VE COLONY COUNT URINE NONEMERGE A0130 FEDERATED FEDERATED NCY 7 TRANS TRANSPORT TRANSPORT SERVBLUEG ATION: ATION SER TOSHA Dobson VAN SUSCEPTIB 61148 LAURA SANCHEZ LTY STDY 7 [facility] ANTIMICRB INC INC IAL MICRO/AGA R DILUTJ URNLS DIP [address] [facility] STICK/[facility] LET RGNT P NON-AUTO W/O MICRSCP O2 CONC 1 E1390 [facility] 7 HEALTHCAR HEALTHCAR 85%/>02 E E CONC AT [facility] FLW RATE NONEMERGE A0130 FEDERATED FEDERATED NCY 7 TRANS TRANSPORT TRANSPORT SERVBLUEG ATION: ATION SER TOSHA Dobson VAN RADEX 26642 LAURA SANCHEZ SHOULDER 7 [facility] COMPLETE INC INC MINIMUM 2 VIEWS FOR DIAB A5512 [facility] ONLY MX 7 MEDICAL MEDICAL DNSITY SUPPLY SUPPLY INSRT DIR LLC LLC FORMD PRFAB EA DIAB ONLY A5500 [facility] [place] FIT CSTM 7 MEDICAL MEDICAL PREP&SPL SUPPLY SUPPLY SHOE MX LLC LLC DNSITY INSRT URNLS DIP 81845 LAURA SANCHEZ 7 [facility] STICK/TAB INC INC LET REAGENT AUTO MICROSCOP Y DEBRIDEME 05061 SPECIAL SKRIP JR. NT NAIL 7 CARE ANY PODIATRY METHOD OF YAMIL 6/> NONEMERGE A0130 FEDERATED FEDERATED NCY 7 TRANS TRANSPORT TRANSPORT SERVBLUEG ATION: ATION SER TOSHA Dobson VAN RADEX 35854 [facility] SHOULDER 7 [facility] COMPLETE MINIMUM 2 VIEWS SET-UP Q0092 [facility] PORTABLE 7 [facility] X-RAY EQUIPMENT TRANS R0070 [facility] PRTBL 7 LLC LLC X-RAY EQP&PERS RICHMOND/NRS RICHMOND-TRIP 1 PT TRANS R0070 [facility] PRTBL 7 LLC LLC X-RAY EQP&PERS RICHMOND/NRS RICHMOND-TRIP 1 PT RADIOLOGI 54473 [facility] EXAMINATI ON CHEST SINGLE VIEW FRONTAL SET-UP Q0092 [facility] PORT[facility] 7 [facility] LLC X-RAY EQUIPMENT SET-UP Q0092 [facility] PORTABLE 7 [facility] X-RAY EQUIPMENT TRANS R0075 [facility] PRTBL 7 LLC LLC XRAY EQP&PERS RCIHMOND/NRS RICHMOND-TRIP> 1 PT RADIOLOGI 44076 [facility] EXAMINATI ON CHEST SINGLE VIEW FRONTAL O2 CONC 1 E1390 EDGEROSALIAT ECHOCOUNT INCLUDES THE [facility] 7 HEALTHCAR HEALTHCAR 85%/>02 E E CONC AT PRS FLW RATE BLOOD 81092 [facility] CAMBODIAN COUNT 7 HEALTH HEALTH COMPLETE ASSOCIATE ASSOCIATE AUTO&AUTO S S DIFRNTL WBC TRAVEL 1 P9603 [facility]IAN CAMBODIAN [facility] MED 7 HEALTH HEALTH NEC SET OFF PRESS OPERATOR ASSOCIATE SPEC; S S PRORAT ACTL MILE J CARLOS V G0471 CAM[facility]IAN CAMBODIAN BLD 7 HEALTH HEALTH FAGOT HEATER HELPER/URN ASSOCIATE ASSOCIATE SMP CATH S S IND SNF/LAB BHALF MANAGER TRADE BASIC 96607 CAM[facility]IAN CAMBODIAN METABOLIC 7 HEALTH HEALTH PANEL ASSOCIATE ASSOCIATE CALCIUM S S TOTAL ECG 99643 LAURA SANCHEZ ROUTINE 7 [facility] ECG INC INC W/LEAST 12 LDS TRCG ONLY W/O I&R ECG 16817 [facility] ROUTINE 7 PHYSICIAN ECG S GROUP W/LEAST 12 LDS I&R ONLY NONEMERGE A0130 FEDERATED FEDERATED NCY 7 TRANS TRANSPORT TRANSPORT SERVBLUEG ATION: ATION SER TOSHA KAVITHA R VAN O2 CONC 1 E1390 [facility] E[facility] 7 HEALTHCAR HEALTHCAR 85%/>02 E E CONC AT PRS FLW RATE AMBULANCE A0428 [facility] SERVICE 7 AMBULANCE AMBULANCE BLS SERVICE SERVICE NONEMERGE NCY TRANSPORT GROUND A0425 [facility] MILEAGE 7 AMBULANCE AMBULANCE PER SERVICE SERVICE STATUTE MILE GROUND A0425 [facility] MILEAGE 7 AMBULANCE AMBULANCE PER SERVICE SERVICE STATUTE MILE ECG 83875 LAURA HOLCOMB ROUTINE 7 [facility] W/LEAST P 12 LDS I&R ONLY AMB A0427 [facility] SERVICE 7 AMBULANCE AMBULANCE ALS SERVICE SERVICE EMERGENCY TRANSPORT LEVEL 1 RADIOLOGI 59764 [place] ORDONE[facility] C 7 MEDICAL EXAMINATI IMAGING ON CHEST ASS SINGLE VIEW FRONTAL ECG 85602 [facility] ROUTINE 7 HEALTHCAR HEALTHCAR ECG E E W/LEAST [facility]IT[facility] 12 [facility] TRCG ONLY W/O I&R VISUAL 36204 DE [place] FIELD XM 7 MEDICAL UNI/BI SERV W/INTERP FOUNDATIO EXTENDED N EXAM HOSPITAL G0463 [facility] OUTPATIEN 7 HEALTHCAR HEALTHCAR T CLIN E E VISIT [facility] ASSESS & MGMT PT NONEMERGE A0130 FEDERATED FEDERATED NCY 7 TRANS TRANSPORT TRANSPORT SERVBLUEG ATION: ATION SER TOSHA KAVITHA Dobson VAN DEBRIDEME 99334 SPECIAL VICTORIAN[facility] [place] NT NAIL 7 CARE ANY PODIATRY METHOD OF YAMIL 6/> O2 CONC 1 E1390 [facility] [place] 7 HEALTHCAR HEALTHCAR 85%/>02 E E CONC AT PRSC FLW RATE O2 CONC 1 E1390 [facility] 6 HEALTHCAR HEALTHCAR 85%/>02 E E CONC AT PRSC FLW RATE POLYSOM 54140 LAURA SANCHEZ 6/>YRS 6 [facility] H[facility] SLEEP INC INC W/CPAP 4/> ADDL KATARINA ATTND NONEMERG A0120 FEDERATED FEDERATED TRNSPRT: 6 MINI-BUS TRANSPORT TRANSPORT MTN ATION SER ATION SER AREA/OTH SYS O2 CONC 1 E1390 [place] 6 HEALTHCAR HEALTHCAR 85%/>02 E E CONC AT PRSC FLW RATE TRAVEL [address] MED 6 HEALTH HEALTH NEC SET OFF PRESS OPERATOR ASSOCIATE SPEC; S S PRORAT ACTL MILE J CARLOS V G0471 CAM[facility]IAN CAMB[facility]IAN BLD HEALTH HEALTH FAGOT HEATER HELPER/URN ASSOCIATE ASSOCIATE SMP CATH S S IND SNF/LAB BHALF MANAGER TRADE BASIC 21285 CAM[facility]IAN CAMBODIAN METABOLIC HEALTH HEALTH PANEL ASSOCIATE ASSOCIATE CALCIUM S S TOTAL DEBRIDEME 20861 SPECIAL SKRIP JR. NT NAIL 6 CARE SELVIN ANY PODIATRY METHOD OF YAMIL 6/> O2 CONC 1 E1390 [place] [address] HEALTHCAR HEALTHCAR 85%/>02 E E CONC AT PRSC FLW RATE ECG 85275 LAURA LAURA ROUTINE 6 [facility] ECG INC INC W/LEAST 12 LDS TRCG ONLY W/O I&R ECG 30461 [facility] ROUTINE 6 PHYSICIAN MAT ECG S GROUP W/LEAST 12 LDS I&R ONLY ECG 90324 LAURA ZARCO ROUTINE 6 [facility] W/LEAST P 12 LDS I&R ONLY RADIOLOGI 69903 [facility] C EXAM 6 MEDICAL KIERAN CHEST 2 IMAGING VIEWS ASS FRONTAL&L ATERAL O2 CONC 1 E1390 [place] [address] HEALTHCAR HEALTHCAR 85%/>02 E E CONC AT PRSC FLW RATE RADEX 88651 [facility] ALL SPINE 6 MEDICAL LUMBOSACR IMAGING AL 2/3 ASS VIEWS RADEX 49310 [facility] ALL SPINE 6 MEDICAL THORACIC IMAGING 2 VIEWS ASS RADEX 71594 [facility] ALL SPINE 6 MEDICAL CERVICAL IMAGING 2 OR 3 ASS VIEWS ECG 15085 [facility] ROUTINE 6 PHYSICIAN MAT ECG S GROUP W/LEAST 12 LDS I&R ONLY NONEMERG A0120 FEDERATED FEDERATED TRNSPRT: 6 MINI-BUS TRANSPORT TRANSPORT MTN ATION SER ATION SER AREA/OT SYS NONEMERG A0120 FEDERATED FEDERATED TRNSPRT: 6 MINI-BUS TRANSPORT TRANSPORT MTN ATION SER ATION SER AREA/OT SYS ECG 54058 [facility] ROUTINE 6 PHYSICIAN MAT ECG S GROUP W/LEAST 12 LDS I&R ONLY ECG 06766 LAURA RUFFINSON ROUTINE 6 [facility] W/LEAST P 12 LDS I&R ONLY NONEMERG A0120 FEDERATED FEDERATED TRNSPRT: 6 MINI-BUS TRANSPORT TRANSPORT MTN ATION SER ATION SER AREA/OTH SYS PC C9600 MEAWFRANCES MEAWFRANCES TRNSCTH 6 W W PLCMT RX [facility]AL [facility] [place] MEDICAL MEDICAL STENTS; 1 CHRISTINE CA/[place] PRQ [address] [facility] TRLUML 6 PHYSICIAN MAT CORONARY S GROUP STENT W/ANGIO ONE ART/BRNCH ECG 96655 LAURA HOLCOMB ROUTINE 6 [facility] W/LEAST P 12 LDS I&R ONLY NONEMERG A0120 FEDERATED FEDERATED TRNSPRT: 6 MINI-BUS TRANSPORT TRANSPORT MTN ATION SER ATION SER [facility]/OTH SYS RADEX 76686 LAURA SANCHEZ WRIST 6 [facility] COMPLETE INC INC MINIMUM 3 VIEWS RADIOLOGI 57220 [facility] ALL C 6 MEDICAL EXAMINATI IMAGING ON CHEST ASS SINGLE VIEW FRONTAL NONEMERG A0120 FEDERATED FEDERATED TRNSPRT: 6 MINI-BUS TRANSPORT TRANSPORT MTN ATION SER ATION SER AREA/OTH SYS NONEMERG A0120 FEDERATED FEDERATED TRNSPRT: 6 MINI-BUS TRANSPORT TRANSPORT MTN ATION SER ATION SER AREA/OTH SYS RADIOLOGI 13416 [facility] ALL C 6 MEDICAL EXAMINATI IMAGING ON [...] TRNSPRT: 6 MINI-BUS TRANSPORT TRANSPORT MTN [facility] 37577 [facility] DISCHARGE 6 PHYSICIAN MAT DAY S GROUP MANAGEMEN T 30 MIN/< PRQ 44298 [facility] TRLUML 6 PHYSICIAN MAT CORONARY S GROUP STENT W/ANGIO ONE ART/BRNCH PC C9600 MEADOWVIE MEADOWVIE TRNSCTH 6 W W PLCMT RX REGIONAL REG[facility]AL [place] MEDICAL MEDICAL STENTS; 1 CHRISTINE CA/BR NONEMERG A0120 FEDERATED FEDERATED TRNSPRT: 6 MINI-BUS TRANSPORT TRANSPORT MTN [facility] ECHO 44758 LAURA SANCHEZ TTHRC R-T 6 [facility] 2D INC INC W/WOM-MOD E COMPL SPEC&COLR D NONEMERG A0120 FEDERATED FEDERATED TRNSPRT: 6 MINI-BUS TRANSPORT TRANSPORT MTN [facility] [place] NONEMERG A0120 FEDERATED FEDERATED TRNSPRT: 6 MINI-BUS TRANSPORT TRANSPORT MTN [facility] ECG 01548 LAURA HOLCOMB ROUTINE 6 [facility] W/LEAST P 12 LDS I&R ONLY RADIOLOGI 44954 [place] ALEISHA C 6 MEDICAL [place]IERAN EXAMINATI IMAGING ON CHEST ASS SINGLE VIEW FRONTAL RADEX 86330 [place] BEINEKE SPINE 6 MEDICAL [place] THORACIC [place]AG[place] [address] [place] [address] [facility] MEDICAL [place]IER[place] N W/[place] [address] [facility] CERVICAL 6 MEDICAL GILMA SPINE W/O IMAGING CONTRAST ASS MATERIAL RADEX 59494 [facility] SPINE 6 MEDICAL GILMA LUMBOSACR IMAGING AL 2/3 ASS VIEWS NONEMERG A0120 FEDERATED FEDERATED TRNSPRT: 6 MINI-BUS TRANSPORT [facility] SYS NONEMERG A0120 FEDERATED FEDERATED TRNSPRT: 6 MINI-BUS TRANSPORT TRANSPORT MTN [facility] RADIOLOGI 47628 [place] MERY ALL C 6 MEDICAL EXAMINATI IMAGING ON CHEST ASS SINGLE VIEW FRONTAL NONEMERG A0120 FEDERATED FEDERATED TRNSPRT: 6 MINI-BUS TRANSPORT TRANSPORT [facility] ECG 89530 CARDIOVAS MEREDITH ROUTINE 6 CULAR MAT ECG CONSULTAN W/LEAST TS O 12 LDS I&R ONLY RADIOLOGI 87268 [place] ORDONEZ ALL C 6 MEDICAL EXAMINATI IMAGING ON CHEST ASS SINGLE VIEW FRONTAL NONEMERG A0120 FEDERATED FEDERATED TRNSPRT: 6 MINI-BUS TRANSPORT TRANSPORT [facility] NONEMERG A0120 FEDERATED FEDERATED TRNSPRT: 5 MINI-BUS TRANSPORT [facility]ORT [facility] 24191 [facility] 5 JEANIE JEANIE DAY MANAGEMEN T 30 MIN/< SBSQ 77110 [facility] 5 JEANIE JEANIE CARE/DAY 25 MINUTES SBSQ 37766 [facility] 5 JEANIE JEANIE CARE/DAY 25 MINUTES SBSQ 99580 [facility] 5 JEANIE JEANIE CARE/DAY 25 MINUTES SBSQ 14683 [facility] 5 JEANIE JEANIE CARE/DAY 25 MINUTES SBSQ 91901 [facility] 5 JEANIE JEANIE CARE/DAY 25 MINUTES SBSQ 47970 [facility] 5 JEANIE JEANIE CARE/DAY [address] THORAX 28256 [place] [facility] MEDICAL GILMA W/CONTRAS IMAGING T ASS MATERIAL RADIOLOGI 56455 [place] [facility] 5 MEDICAL GILMA EXAMINATI IMAGING ON CHEST ASS SINGLE VIEW FRONTAL INITIAL 32974 [facility] 5 JEANIE JEANIE CARE/DAY 50 MINUTES RADEX 04800 [place] MERY ALL FINGR 5 MEDICAL MINIMUM 2 IMAGING VIEWS ASS URNLS DIP 96199 LAURA SANCHEZ 5 [facility] STICK/TAB INC INC LET REAGENT AUTO MICROSCOP Y NONEMERG A0120 FEDERATED FEDERATED TRNSPRT: 5 MINI-BUS TRANSPORT TRANSPORT MTN [facility]/OTH SYS NONEMERG A0120 FEDERATED FEDERATED TRNSPRT: 5 MINI-BUS TRANSPORT [facility] 98120 CARDIOVAS MEREDITH ROUTINE 5 CULAR MAT ECG CONSULTAN W/LEAST TS O 12 LDS I&R ONLY ECG 50615 LAURA SANCHEZ ROUTINE 5 [facility] ECG INC INC W/LEAST 12 LDS TRCG ONLY W/O I&R NONEMERG A0120 FEDERATED FEDERATED TRNSPRT: 5 MINI-BUS TRANSPORT TRANSPORT MTN ATION SER [facility] ARE[facility]/OTH SYS NONEMERG A0120 FEDERATED FEDERATED TRNSPRT: 5 MINI-BUS TRANSPORT TRANSPORT MTN [facility] CONTINUOU E0601 [facility] S 5 POSITIVE AIRWAY PRESSURE DEVICE NONEMERG A0120 FEDERATED FEDERATED TRNSPRT: 5 MINI-BUS TRANSPORT TRANSPORT MTN [facility]OTH SYS R & L HRT 27407 CARDIOVAS MEREDITH CATH 5 CULAR MAT WINJX HRT CONSULTAN ART& [place] [address] [place] ALEISHA ABDOMEN & 5 MEDICAL KIERAN PELVIS IMAGING W/O ASS CONTRAST MATERIAL RADIOLOGI 98970 [place] ALEISHA C 5 MEDICAL KIERAN EXAMINATI IMAGING ON CHEST ASS SINGLE VIEW FRONTAL RADIOLOGI 06989 [place] ALEISHA C 5 MEDICAL KIERAN EXAMINATI IMAGING ON PELVIS ASS 1/[address] [place] [address] [place] ALEISHA CERVICAL 5 MEDICAL KIERAN SPINE W/O IMAGING CONTRAST ASS MATERIAL RADIOLOGI [address] [place] ALEISHA C 5 MEDICAL [place]IERAN EXAMINATI IMAGING [place] [address] [place] A[place] THORACIC 5 MEDICAL [place]IER[place] SPINE W/O IMAGING CONTRAST ASS MATERIAL NONEMERG A0120 FEDERATED FEDERATED TRNSPRT: 5 MINI-BUS TRANSPORT TRANSPORT MTN ATION SER ATION SER AREA/OTH SYS RADIOLOGI 44417 [place] LESIAINE C EXAM 5 MEDICAL GILMA CHEST 2 IMAGING VIEWS ASS FRONTAL&L ATERAL NONEMERG A0120 FEDERATED FEDERATED TRNSPRT: 5 MINI-BUS TRANSPORT TRANSPORT MTN ATION SER ATION SER AREA/OTH SYS ECHO 50516 LAURA SANCHEZ TTHRC R-T 5 [facility] [...] ATION SER ATION SER AREA/OTH SYS RADEX 33770 [place] A[place] RIBS UNI 5 MEDICAL KIERAN W/POSTERO [...] FEDERATED TRNSPRT: 4 TRANS [facility]A/[place] [address] NICKI ECHEVARRIA ABDOMEN & 4 MEDICAL GILMA PELVIS IMAGING W/CONTRAS ASS T MATERIAL NONEMERG A0120 FEDERATED FEDERATED TRNSPRT: 4 TRANS [facility] TRANSPORT [facility] SER [place] AREA/OTH SYS NONEMERG A0120 FEDERATED FEDERATED TRNSPRT: 4 TRANS MINI-BUS TRANSPORT [facility] T[place] AREA/OTH SYS XTRNL 29649 [place] ONDINA OCULAR 4 MEDICAL SHA PHOTOG SERV W/I&R FOUNDATIO DOCMT N MEDICAL PROGRE O2 CONC 1 E1390 ARON [facility] [place] 4 HOME HOME 85%/>02 MEDICAL MEDICAL CONC AT EQUIPME EQUIPME PRSC FLW RATE SPMTRY 36025 LAURA SANCHEZ W/VC 4 [facility] EXPIRATOR INC INC Y MARYLOU W/WO MXML VOL VNTJ NONEMERG A0120 FEDERATED FEDERATED TRNSPRT: 4 TRANS [facility]SP[facility] AREA/OTH SYS O2 CONC 1 E1390 ARON [facility] 4 HOME HOME 85%/>02 MEDICAL MEDICAL CONC AT EQUIPME EQUIPME PRSC FLW RATE NONEMERG A0120 FEDERATED FEDERATED TRNSPRT: 4 TRANS [facility] TRANSPORT [facility] [place] AREA/OTH SYS O2 CONC 1 E1390 ARON [facility] [place] 4 HOME HOME 85%/>02 MEDICAL MEDICAL CONC AT EQUIPME EQUIPME PRSC FLW RATE NONEMERG A0120 FEDERATED FEDERATED TRNSPRT: 4 TRANS [facility] TRANSPORT [facility] [place] AREA/OTH SYS NONEMERG A0120 FEDERATED FEDERATED TRNSPRT: 4 TRANS [facility] TRANSPORT [facility] SER [place] AREA/OTH SYS O2 CONC 1 E1390 ARON KNIGHTRELL [place] 4 HOME HOME 85%/>02 MEDICAL MEDICAL CONC AT EQUIPME EQUIPME PRS FLW RATE SAVAGE 51601 LAURA MATHIS JR POST-VOID 4 [facility] RESIDUAL P URINE&/BL ADDER CAP NONEMERG A0120 [...] ATION SER ATION SER AREA/OTH SYS SAVAGE 10469 LAURA MATHIS JR POST-VOID 4 [facility] RESIDUAL P URINE&/BL ADDER CAP O2 CONC 1 E1390 ARON [place] 4 HOME HOME 85%/>02 MEDICAL MEDICAL CONC AT EQUIPME EQUIPME [facility] FLW RATE NONEMERG A0120 FEDERATED FEDERATED TRNSPRT: 4 MINI-BUS TRANSPORT TRANSPORT MTN ATION SER ATION SER AREA/OTH SYS NONEMERG A0120 FEDERATED FEDERATED TRNSPRT: 4 MINI-BUS TRANSPORT TRANSPORT MTN ATION SER ATION SER AREA/OTH SYS SAVAGE 32309 LAURA MATHIS JR POST-VOID 4 [facility] RESIDUAL P URINE&/BL ADDER CAP O2 CONC 1 E1390 ARON [place]IGHT[place]LL [place] 4 HOME HOME 85%/>02 MEDICAL MEDICAL CONC AT EQUIPME EQUIPME PRSC FLW RATE NONEMERG A0120 FEDERATED FEDERATED TRNSPRT: 4 MINI-BUS TRANSPORT TRANSPORT MTN ATION SER ATION SER AREA/OTH SYS NONEMERG A0120 FEDERATED FEDERATED TRNSPRT: 4 [facility] TRANSPORT TRANSPORT MTN ATION SER ATION SER AREA/[place] [address] LAURA SANCHEZ MAXILLOFA 4 [facility] CIAL W/O INC INC CONTRAST MATERIAL 3D 44798 [place] RENDERING 4 MEDICAL KIERAN IMAGING W/INTERP& [...] ATION SER ATION SER AREA/OTH SYS RADEX 96348 LAURA SANCHEZ WRIST 4 [facility] COMPLETE INC INC MINIMUM 3 VIEWS RADIOLOGI 03658 LAURA SANCHEZ C EXAM 4 [facility] [...] SYS O2 CONC 1 E1390 [facility] 3 HOME HOME 85%/>02 MEDICAL MEDICAL CONC [place] [address] LAURA SANCHEZ INFUSION 3 [facility] THERAPY INC INC PROPHYLAX IS/DX EA HOUR NEUROPLAS 22809 LAURA SANCHEZ TY 3 [facility] &/TRANSPO INC INC S MEDIAN NRV CARPAL TUNNE PRESSURIZ 28750 LAURA SANCHEZ ED/NONPRE 3 [facility] SSURIZED [place] [address] LAURA SANCHEZ INFUSION 3 [facility] THERAPY/P INC INC ROPHYLAXI S /DX 1ST TO 1 HR THERAPEUT 40986 LAURA SANCHEZ IC 3 [facility] MEM [...] SYS O2 CONC 1 E1390 ARON [facility] 3 HOME HOME 85%/>02 MEDICAL MEDICAL CONC [place] [address] LAURA SANCHEZ INFUSION 3 [facility] THERAPY INC INC PROPHYLAX IS/DX EA HOUR NEUROPLAS 76813 LAURA SANCHEZ TY 3 [facility] &/TRANSPO INC INC S MEDIAN NRV CARPAL TUNNE THERAPEUT 24771 LAURA TRIPPON IC 3 [facility] INJECTION [place] [address] LAURA SANCHEZ INFUSION 3 [facility] THERAPY/P INC INC ROPHYLAXI S /DX 1ST TO 1 HR COLLECTIO 00196 LAURA SANCHEZ N VENOUS 3 [facility] BLOOD INC INC VENIPUNCT URE ECG 72479 LAURA HOLCOMB ROUTINE 3 [facility] W/LEAST P 12 LDS I&R ONLY BASIC 42677 LAURA SANCHEZ METABOLIC 3 [facility] PANEL INC INC CALCIUM TOTAL ECG 66657 LAURA SANCHEZ ROUTINE 3 [facility] ECG INC INC W/LEAST 12 LDS TRCG ONLY W/O I&R BLOOD 29027 LAURA SANCHEZ COUNT 3 [facility] COMPLETE INC INC AUTO&AUTO DIFRNTL WBC RADIOLOGI 28975 [facility] C EXAM 3 MEDICAL KIERAN CHEST 2 IMAGING VIEWS ASS FRONTAL&L ATERAL NONEMERG A0120 LKLP CAC LKLP CAC TRNSPRT: 3 INC INC MINI-BUS REGION 11 REGION 11 MTN AREA/OTH SYS NONEMERG A0120 LKLP CAC LKLP CAC TRNSPRT: 3 INC INC MINI-BUS REGION 11 REGION 11 MTN AREA/OTH SYS DETERMINA 38072 ELENI KNOWLES TION 3 JAM JAM REFRACTIV E STATE OPHTHALMO 19949 ELENI KNOWLES SCPY 3 JAM JAM EXTENDED RETINAL DRAWING I&R 1ST NONEMERG A0120 LKLP CAC LKLP CAC TRNSPRT: 3 INC INC MINI-BUS REGION 11 REGION 11 MTN AREA/OTH SYS O2 CONC 1 E1390 ARON [place] 3 HOME HOME 85%/>02 MEDICAL MEDICAL CONC AT EQUIPND EQUIPND PRSC FLW RATE NERVE 72472 LATTER-DAY VINH CONDUCTIO 3 [facility]/> [place] [facility] NONEMERG A0120 LKLP CAC LKLP CAC TRNSPRT: 3 INC INC MINI-BUS REGION 11 REGION 11 MTN AREA/OTH SYS NEEDLE 39644 LATTER-DAY VINH EMG EA 3 [facility] W/PARASPI [place] AREA COMPLETE TRIMMING 54365 BRAUDIS BRAUDIS NONDYSTRO 3 JAM JAM PHIC NAILS ANY NUMBER O2 CONC 1 E1390 ARON [facility] 3 HOME HOME 85%/>02 MEDICAL MEDICAL CONC AT [facility] [place] 46315 NICKI MORAES SPINAL 3 MEDICAL KIERAN CANAL IMAGING CERVICAL ASS W/O CONTRAST MATRL GLUC BLD 53854 LAURA SANCHEZ GLUC MNTR 3 [facility] DEV INC [place] [address] LAURA SANCHEZ INFUSION 3 [facility] THERAPY INC INC PROPHYLAX IS/DX EA HOUR EGD 14434 LAURA SANCHEZ TRANSORAL 3 [facility] BIOPSY INC INC SINGLE/MU LTIPLE SPCL STN 30385 CHIPPS SUAD ARMANDO 2 I&R 3 SUNITHA & EXCPT DUBILIER MICROORG/ ENZYME/[place] L[place] [address] CHIPPS SUAD ARMANDO SURG 3 SUNITHA & PATHOLOGY DUBILIER GROSS&ARMANDO ROSCOPIC EXAM NONEMERG A0120 LKLP CAC LKLP CAC TRNSPRT: 3 INC INC MINI-BUS REGION 11 REGION 11 MTN AREA/OTH SYS EXCISION 96086 MARKIE LOZADA THO NAIL 3 [facility] REMOVAL NONEMERG A0120 LKLP LKLP TRNSPRT: 3 [facility] MINI-BUS ACTION ACTION MTN AREA/OTH SYS O2 CONC 1 E1390 ARON [place] 3 HOME HOME 85%/>02 MEDICAL MEDICAL CONC AT [facility]QUIPME [facility] FLW RATE BLOOD 94305 LAURA SANCHEZ COUNT 3 [facility] COMPLETE INC INC AUTO&[place] [address] LAURA SANCHEZ TROPONIN 3 [facility] QUANTITAT INC INC NAGY RADIOLOGI 74420 LAURA SANCHEZ C EXAM 3 [facility] CHEST 2 INC INC VIEWS FRONTAL&L ATERAL CREATINE 26413 LAURA SANCHEZ KINASE MB 3 [facility] FRACTION INC INC ONLY CREATINE 14057 LAURA SANCHEZ KINASE 3 [facility] TOTAL INC INC COMPREHEN 65213 LAURA SANCHEZ SIVE 3 [facility] METABOLIC INC INC PANEL AMB A0427 [facility] SERVICE 3 AMBULANCE AMBULANCE ALS SERVICE SERVICE EMERGENCY TRANSPORT LEVEL 1 ECG 82285 LAURA SANCHEZ ROUTINE 3 [facility] ECG INC INC W/LEAST 12 LDS TRCG ONLY W/O I&R GROUND A0425 MYESHA BRUNNER MILEAGE 3 AMBULANCE AMBULANCE PER SERVICE SERVICE STATUTE MILE ECG 78247 LAURA ZARCO JR ROUTINE 3 [facility] W/LEAST P 12 LDS I&R ONLY NONCOVERE A9270 [facility] D ITEM OR 3 [facility] SERVICE O2 CONC 1 E1390 ARON [place] 3 HOME HOME 85%/>02 MEDICAL MEDICAL CONC AT EQUIPME EQUIPME [facility] FLW RATE DEBRIDEME 20581 BRAUDIS BRAUDIS NT NAIL 3 JAM JAM ANY METHOD 1-5 TRIMMING 12788 BRAUDIS BRAUDIS NONDYSTRO 3 JAM JAM PHIC NAILS ANY NUMBER O2 CONC 1 E1390 ARON [place] 3 HOME HOME 85%/>02 MEDICAL MEDICAL CONC AT EQUIPME EQUIPME [facility] FLW RATE PROSTATE G0103 COMBINED COMBINED CANCER 3 PHYSICIAN PHYSICIAN SCREENING S LA S LA ; PSA TEST URNLS DIP 77879 COMBINED COMBINED 3 PHYSICIAN PHYSICIAN STICK/TAB S LA S LA LET REAGENT AUTO MICROSCOP Y RADEX 89370 [facility] ELBOW 3 MOBILE MOBILE COMPLETE DIAGNOSTI DIAGNOSTI MINIMUM 3 C SE C SE VIEWS RADEX 52519 [facility] HUMERUS 3 MOBILE MOBILE MINIMUM 2 DIAGNOSTI DIAGNOSTI VIEWS C SE C SE RADEX 44679 [facility] SHOULDER 3 MOBILE MOBILE COMPLETE [facility] FLW [facility]ATE DEBR[place]EME 09165 BRAUDIS BRAUDIS NT NAIL 3 JAM JAM ANY METHOD 1-5 TRIMMING 18025 BRAUDIS BRAUDIS NONDYSTRO 3 JAM JAM PHIC NAILS ANY NUMBER PARING/CU 02-14-201 93534 RAMÍREZ ELMORE TTING 3 JAM JAM BENIGN HYPERKERA TOTIC LESION >4 O2 CONC 1 E1390 ARON KNIGHTRELL [place] 3 HOME HOME 85%/>02 MEDICAL MEDICAL CONC AT EQUIPME EQUIPME PRSC FLW RATE NONEMERG A0120 LKLP LKLP TRNSPRT: 3 [facility] COMMUNITY MINI-BUS ACTION ACTION MTN AREA/[place] [address] LAURA LAURA INFUSION 3 [facility] THERAPY/P INC INC ROPHYLAXI S /DX 1ST TO 1 [place] [address] LAURA LAURA INFUSION 3 [facility] THERAPY INC INC PROPHYLAX IS/DX EA HOUR COLONOSCO 74658 LAURA SANCHEZ PY FLX DX 3 MEM [...] S LA ; [place] [address] COMBINED COMBINED THYROID 2 PHYSICIAN PHYSICIAN STIMULATI S LA S LA NG HORMONE TSH COMPREHEN 90444 COMBINED COMBINED SIVE 2 PHYSICIAN PHYSICIAN METABOLIC S LA S LA PANEL COLLECTIO 35190 COMBINED COMBINED N VENOUS 2 PHYSICIAN PHYSICIAN BLOOD S LA S LA VENIPUNCT URE LIPID 53920 COMBINED COMBINED PANEL 2 PHYSICIAN PHYSICIAN S LA S LA O2 CONC 1 E1390 ARON [place] 2 HOME HOME 85%/>02 MEDICAL MEDICAL CONC AT EQUIPME EQUIPME PRSC FLW RATE RADIOLOGI 37765 LAURA SANCHEZ C 2 [facility] EXAMINATI INC INC ON CHEST SINGLE VIEW FRONTAL ECG 42769 LAURA SANCHEZ ROUTINE 2 [facility] ECG INC INC W/LEAST 12 LDS TRCG ONLY W/O I&R ECG 34489 HAROLDO ZARCO JR ROUTINE 2 DWI DWI ECG W/LEAST 12 LDS I&R ONLY NONEMERG A0120 LKLP LKLP TRNSPRT: 2 COMMUNITY COMMUNITY MINI-BUS ACTION ACTION MTN AREA/OTH SYS SAVAGE 18544 DEL MATHIS JR POST-VOID 2 MARCY MARCY ING RESIDUAL URINE&/[place] [address] LAURA SANCHEZ THYROID 2 [facility] STIMULATI INC INC NG HORMONE TSH INSJ TEMP 82880 LAURA SANCHEZ NDWELLG 2 [facility] BLADDER INC INC CATHETER SIMPLE URNLS DIP 79909 LAURA SANCHEZ 2 [facility] STICK/TAB INC INC LET REAGENT AUTO MICROSCOP Y BLOOD 10837 LAURA LAURA COUNT 2 [facility] COMPLETE INC INC AUTO&[place] [address] LAURA LAURA ABDOMEN & 2 [facility] PELVIS INC INC W/O CONTRAST MATERIAL BASIC 63576 LAURA SANCHEZ METABOLIC 2 [facility] PANEL INC INC CALCIUM TOTAL 3D 42199 LAURA SANCHEZ RENDERING 2 [facility] INC INC W/INTERP& [place] DI[place] [address] LAURA LAURA INFUSION 2 [facility] HYDRATION INC INC INITIAL 31 MIN-1 HOUR RADIOLOGI 32877 [facility] 2 MEDICAL KIERAN EXAMINATI IMAGING ON CHEST ASS SINGLE VIEW FRONTAL ECG 16625 RAND GORDILLO ROUTINE 2 III MARCY III MARCY ECG W/LEAST 12 LDS I&R ONLY O2 CONC 1 E1390 ARONADRIANNE KNIGHTRELL [place] 2 HOME HOME 85%/>02 MEDICAL MEDICAL CONC AT EQUIPME EQUIPME PRS FLW RATE TRIMMING 96340 BRAUDIS BRAUDIS NONDYSTRO 2 JAM JAM PHIC NAILS ANY NUMBER O2 CONC 1 E1390 ARON [place]ON [place] 2 HOME HOME 85%/>02 MEDICAL MEDICAL CONC AT EQUIPME EQUIPME PRS FLW RATE BLOOD 92024 LAURA SANCHEZ COUNT 2 [facility] COMPLETE INC INC AUTO&AUTO DIFRNTL WBC CT SOFT 73333 NICKI STILESUTCHER TISSUE 2 MEDICAL KIERAN NECK W/O IMAGING CONTRAST ASS MATERIAL CT SOFT 70832 LAURA SANCHEZ TISSUE 2 [facility] NECK INC INC W/CONTRAS T MATERIAL 3D 88253 LAURA SANCHEZ RENDERING 2 [facility] INC INC W/INTERP& POSTPROC DIFF WORK STATION BASIC 54572 LAURA SANCHEZ METABOLIC 2 [facility] HOS[facility] MEM [...] MINI-BUS ACTION ACTION MTN AREA/OTH SYS ECG 96001 ZEKE BAR ZEKE BAR ROUTINE 2 ECG W/LEAST 12 LDS I&R ONLY ECG 71586 HEEB CHR HEEB CHR ROUTINE 2 ECG W/LEAST 12 LDS I&R ONLY ECG 54277 HEEB CHR HEEB CHR ROUTINE 2 ECG W/LEAST 12 LDS I&R ONLY RADIOLOGI 02-04-201 37648 RADIOLOGY NEILS JONATHAN C 2 EXAMINATI ASSOCIATE ON CHEST S OF NOT SINGLE VIEW FRONTAL ECG 07086 HEEB CHR HEEB CHR ROUTINE 2 ECG [...] MEDICAL AIRWAY EQUIPME EQUIPME PRESSURE DEVICE POLYSOM 42753 LEON QUINTERO 6/>YRS 1 ERNST ERNST SLEEP W/CPAP 4/> ADDL KATARINA ATTND POLYSOM 64864 LAURA SANCHEZ 6/>YRS 1 [facility] SLEEP INC INC W/CPAP 4/> ADDL KATARINA ATTND COMPREHEN 30662 LAURA SANCHEZ SIVE 1 [facility] [place] [address] [place] ABDOMEN & 1 MEDICAL KIERAN PELVIS IMAGING W/O ASS CONTRAST MATERIAL 3D 43981 NICKI STILESUTCHER RENDERING 1 MEDICAL KIERAN IMAGING W/INTERP& ASS POSTPROC DIFF WORK STATION URNLS DIP 70573 LAURA SANCHEZ 1 [facility] STICK/TAB INC INC LET REAGENT AUTO MICROSCOP Y INSJ TEMP 13945 LAURA SANCHEZ NDWELLG 1 [facility] BLADDER INC INC CATHETER SIMPLE BLOOD 39698 LAURA SANCHEZ COUNT 1 [facility] COMPLETE INC INC AUTO&AUTO DIFRNTL WBC COLLECTIO 17791 LAURA SANCHEZ N VENOUS 1 [facility] BLOOD INC INC VENIPUNCT URE CULTURE 35652 LAURA SANCHEZ BACTERIAL 1 [facility] INC INC QUANTTATI VE COLONY COUNT URINE INJECTION J2785 LAURA SANCHEZ 1 [facility] REGADENOS INC INC ON 0.1 MG MYOCARDIA 42046 FALLUJI FALLUJI L SPECT 1 TATUM TATUM MULTIPLE STUDIES CV STRS 05863 AICHA HOLCOMB TST 1 JEANIE JEANIE XERS&/OR RX CONT ECG I&R ONLY TECHNETIU A9502 LAURA LAURA M TC-99M 1 [facility] TETROFOSM INC INC IN DX PER STUDY DOSE CV STRS 18894 AICHA HOLCOMB TST 1 JEANIE JEANIE XERS&/OR RX CONT ECG W/O I&R CV STRS 08675 LAURA SANCHEZ TST 1 [facility] XERS&/OR INC INC RX CONT ECG TRCG ONLY INITIAL 47680 AICHA HOLCOMB OBSERVATI 1 JEANIE JEANIE ON CARE/DAY 30 MINUTES ECG 91176 PUND CHR PUND CHR ROUTINE 1 ECG W/LEAST 12 LDS I&R ONLY RADIOLOGI 15251 NICKI MORAES C EXAM 1 MEDICAL KIERAN CHEST 2 IMAGING VIEWS ASS FRONTAL&L ATERAL ECHO 60950 FALLUJI FALLUJI TTHRC R-T 1 TATUM TATUM 2D W/WOM-MOD E COMPL SPEC&COLR D POLYSOM 03004 LEON QUINTERO 6/>YRS 1 ERNST ERNST SLEEP 4/> ADDL KATARINA ATTND NONEMERG A0120 LKLP LKLP TRNSPRT: 1 [facility] MINI-BUS ACTION N [facility] AREA/OT SYS POLYSOM 09410 LAURA TRIPPON 6/>YRS 1 [facility] SLEEP 4/> INC INC ADDL AKTARINA ATTND NONINVASI 05475 LAURA SANCHEZ VE 1 [facility] EAR/PULSE INC INC OXIMETRY SINGLE DETER CHRMSM 21846 LAURA SANCHEZ ANALYSIS 1 [facility] ADDL HIGH INC INC RESOLUTIO N STUDY COLLECTIO 70463 LAURA SANCHEZ N VENOUS 1 [facility] BLOOD INC INC VENIPUNCT URE SPMTRY 08714 LAURA SANCHEZ W/VC 1 [facility] EXPIRATOR INC INC Y MARYLOU W/WO MXML VOL VNTJ NONEMERG A0120 LKLP LKLP TRNSPRT: 1 [facility] MINI-BUS ACTION N [facility] AREA/OTH SYS CHRMSM 78637 LAURA SANCHEZ COUNT 1 [facility] 15-20 CLL INC INC 2[place] [address] LAURA SANCHEZ THYROID 1 [facility] STIMULATI INC INC NG HORMONE TSH BLOOD 18580 LAURA SANCHEZ COUNT 1 [facility] COMPLETE INC INC AUTO&AUTO DIFRNTL WBC COMPREHEN 38426 LAURA SANCHEZ SIVE 1 [facility] METABOLIC INC INC PANEL COMPREHEN 72163 COMBINED COMBINED SIVE 1 PHYSICIAN PHYSICIAN [place] [address] COMBINED COMBINED THYROID 1 PHYSICIAN PHYSICIAN STIMULATI S LA S LA NG HORMONE TSH PROSTATE G0103 COMBINED COMBINED CANCER 1 PHYSICIAN PHYSICIAN SCREENING S LA S LA ; PSA TEST COLLECTIO 05965 COMBINED COMBINED N VENOUS 1 PHYSICIAN PHYSICIAN BLOOD S LA S LA VENIPUNCT URE LIPID 87858 COMBINED COMBINED PANEL 1 PHYSICIAN PHYSICIAN S LA S LA TRAVEL [address] MED 1 PHYSICIAN PHYSICIAN NEC LAB S LA S LA SPEC; PRORATD TRIP CHRG NONEMERG A0120 LKLP LKLP TRNSPRT: 1 [facility] MINI-BUS ACTION N MAN AREA/OTH SYS CULTURE 34099 COMBINED COMBINED BACTERIAL 1 PHYSICIAN PHYSICIAN S LA S LA QUANTTATI [place] [address] ORAL ORAL SURG 1 PATHOLOGY PATHOLOGY PATHOLOGY LABORATOR LABORATOR GROSS&ARMANDO Y Y ROSCOPIC EXAM URNLS DIP 10168 COMBINED COMBINED 1 PHYSICIAN PHYSICIAN STICK/TAB S LA S LA LET REAGENT AUTO MICROSCOP Y ORTHOPANT 22567 THE THE OGRAM 1 IMPLANT & IMPLANT & ORAL ORAL SURGERY C SURGERY C NONEMERG A0120 LK LK TRNSPRT: 1 [facility] MINI-BUS ACTION N MTN AREA/OTH SYS EXC 83047 THE RODRIGUEZ, LESION/TU 1 IMPLANT & III OANH MOR ORAL DENTOALVE SURGERY C OLAR STRUX W/SMPL RPR NONEMERG A0120 [facility] TRNSPRT: 1 [facility] MINI-BUS ACTION N MAN AREA/OTH SYS NONEMERG A0120 LK LK TRNSPRT: 1 [facility] MINI-BUS ACTION N MAN AREA/OTH SYS OPHTH 61191 MARIANNE [place] [facility] 1 VISION XM&EVAL COMPRE NEW PT 1/> VST RADEX 28705 [facility] WRIST 1 [facility] COMPLETE MINIMUM 3 VIEWS TRANS R0070 [facility] PRTBL 1 [facility] X-RAY EQP&PERS [place]/NRS R[place]MON[place]-TRIP 1 PT SET-UP Q0092 [facility] PORTABLE 1 [facility] X-RAY EQUIPMENT SET-UP Q0092 [facility] PORTABLE 1 [facility] X-RAY EQUIPMENT TRANS R0070 [facility] PRTBL 1 [facility] X-RAY EQP&PERS [place]/NRS R[place]MOND-TRIP 1 PT RADIOLOGI 72606 [facility] C 1 [facility] EXAMINATI ON CHEST SINGLE VIEW FRONTAL URNLS DIP 88321 LAURA SANCHEZ 1 [facility] STICK/TAB INC INC LET REAGENT AUTO MICROSCOP Y INSJ TEMP 89411 LAURA SANCHEZ NDWELLG 1 [facility] BLADDER INC INC CATHETER SIMPLE BLOOD 66629 LAURA SANCHEZ COUNT 1 [facility] COMPLETE INC INC AUTO&AUTO DIFRNTL WBC COMPREHEN 50614 LAURA SANCHEZ SIVE 1 [facility] METABOLIC INC INC PANEL 3D 88695 [facility] ALEISHA RENDERING 1 MEDICAL KIERAN IMAGING W/INTERP& [place] [address] [facility] MORAES ABDOMEN & 1 MEDICAL KIERAN PELVIS IMAGING W/O ASS CONTRAST MATERIAL AMBULANCE A0429 [facility] SERVICE 1 AMBULANCE AMBULANCE BLS SERVICE SERVICE EMERGENCY TRANSPORT GROUND A0425 [facility] MILEAGE 1 AMBULANCE AMBULANCE PER SERVICE SERVICE STATUTE MILE GROUND A0425 [facility] MILEAGE 1 AMBULANCE AMBULANCE PER SERVICE SERVICE STATUTE MILE SET-UP Q0092 [facility] PORTABLE 1 MOBILE MOBILE X-RAY DIAGNOSTI DIAGNOSTI EQUIPMENT C SE C SE ECG [address] [facility] [place] ROUTINE 1 [facility] ECG CARDIOLOG W/LEAST Y CLINIC 12 LDS I&R ONLY TRANS R0075 [facility] PRTBL 1 MOBILE MOBILE XRAY DIAGNOSTI DIAGNOSTI EQP&PERS C SE C SE [place]/NRS RICHMOND-TRIP> 1 PT RADEX 90518 [facility] HAND 1 MOBILE MOBILE MINIMUM 3 DIAGNOSTI DIAGNOSTI VIEWS C SE C SE RADEX 08607 [facility] WRIST 1 MOBILE MOBILE COMPLETE DIAGNOSTI DIAGNOSTI MINIMUM 3 C SE C SE VIEWS AMB A0427 [facility] SERVICE 1 AMBULANCE AMBULANCE ALS SERVICE SERVICE EMERGENCY TRANSPORT LEVEL 1 SBSQ 31376 [facility] [place] CARE/DAY URGENT 25 TREAT MINUTES RADIOLOGI 48534 [facility] [place] RADHA C 1 RADIOLOGY BOY EXAMINATI ON CHEST SINGLE VIEW FRONTAL SBSQ [id number] CARE/DAY URGENT 35 TREAT MINUTES SBSQ 80298 [facility] [place] CARE/DAY URGENT 25 TREAT MINUTES SBSQ 78365 [facility] [place] CARE/DAY URGENT 25 TREAT MINUTES SBSQ 32500 [facility] 1 URGENT CARE/DAY TREATMENT 35 A MINUTES SET-UP Q0092 EXPRESS EXPRESS PORTABLE 1 MOBILE MOBILE X-RAY DIAGNOSTI DIAGNOSTI EQUIPMENT C SE C SE TRANS R0070 EXPRESS EXPRESS PRTBL 1 MOBILE MOBILE X-RAY DIAGNOSTI DIAGNOSTI EQP&PERS C SE C SE RICHMOND/NRS RICHMOND-TRIP 1 PT RADEX 01623 EXPRESS EXPRESS HAND 1 MOBILE MOBILE MINIMUM 3 DIAGNOSTI DIAGNOSTI VIEWS C SE C SE SBSQ 00603 [facility] 1 URGENT CARE/DAY TREATMENT 35 A MINUTES SBSQ 43424 [facility] [place] CARE/DAY URGENT 35 TREAT MINUTES SET-UP Q0092 EXPRESS EXPRESS PORTABLE 1 MOBILE MOBILE X-RAY DIAGNOSTI DIAGNOSTI EQUIPMENT C SE C SE ECG 87186 [facility] R[facility] 1 [place] ECG URGENT W/LEAST TREAT 12 LDS I&R ONLY ECG 68185 EXPRESS EXPRESS ROUTINE 1 MOBILE MOBILE ECG DIAGNOSTI DIAGNOSTI W/LEAST C SE C SE 12 LDS TRCG ONLY W/O I&R TRANS R0070 EXPRESS EXPRESS PRTBL 1 MOBILE MOBILE X-RAY DIAGNOSTI DIAGNOSTI EQP&PERS C SE C SE RICHMOND/NRS RICHMOND-TRIP 1 PT RADIOLOGI 68408 EXPRESS EXPRESS C EXAM 1 MOBILE MOBILE CHEST 2 DIAGNOSTI DIAGNOSTI VIEWS C SE C SE FRONTAL&L ATERAL INITIAL 41913 [facility] 1 URGENT CARE/DAY TREATMENT 50 A MINUTES LIPID 96098 FAMILY [facility] PANEL 1 [facility] [place] [facility] COLLECTIO 79075 FAMILY FAMILY N VENOUS 1 PRACT PRACT BLOOD ASSOC OF ASSOC [place] [address] FAMILY [facility] FREE 1 [facility]ACT [facility] [place] [address] FAMILY [facility] THYROID 1 PRACT RON[facility]D STIMULATI ASSOC OF NG [place] HORMONE TSH COMPREHEN 71523 FAMILY [facility] SIVE 1 PRACT [facility]ON[facility]D METABOLIC ASSOC OF PANEL [place] RADEX 31362 [facility] J SPINE 1 RADIOLOGY THORACIC ASSOC MINIMUM 4 VIEWS URNLS DIP 96521 FAMILY MONOHAN 1 PRACT RONALD STICK/TAB ASSOC OF [place] [address] [facility] [place] ABDOMEN & 1 RADIOLOGY LD A PELVIS W/CONTRAS T MATERIAL Encounters Encounter Start End Date Code Location Performer Type Date OFFICE 78436 [facility] LUNDBERGICK OUTPATIEN 7 7 MEDICAL T VISIT SERV 25 FOUNDATIO MINUTES [facility] 7 7 [facility] OTHER 7 [facility] [place] [facility] 7 [facility] - 7 7 [facility] 59929 [facility] OUTPATI[facility] 7 7 [facility] 10 P [facility] 7 7 [facility] E OFFICE 16998 MUNDO BENAVIDES OUTPATIEN 7 7 MEDICAL T [facility]ISIT SERV 40 FOUNDATIO MINUTES [facility] - OTHER 7 7 [facility] 11825 [facility] 7 7 PHYSICIAN T VISIT S GROUP 10 MINUTES OFFICE 25847 [facility] OUTPATI[facility] 7 7 PHYSICIAN T [facility]ISIT S GROUP 25 MINUTES [facility] 85878 [facility] MO[place] OUTPATIEN 7 7 [facility] 10 P MIN[facility]ES [facility] 7 [facility] - 7 7 [facility] T OFFICE 80375 [facility] OUTPATIEN 7 7 [facility] 10 P MINUTES [facility] - 7 7 [facility] - 7 7 [facility] T OFFICE 40641 [facility] OUTPATI[facility] 7 7 PHYSICIAN T VISIT S GROUP 15 MINUTES [facility] - OTHER 7 7 [facility] 7 7 [facility] E OFFICE 23301 [facility] OUTPATIEN 7 7 PHYSICIAN T NEW 20 S GROUP MINUTES [facility] INPATIENT 7 7 [facility]ALTHCAR E OFFICE [id number] [facility] OUTPATIEN 7 7 PHYSICIAN T VISIT S GROUP 25 MINUTES [facility] - 7 7 [facility] INPATIENT 7 7 [facility] E [facility] INPATIENT 7 7 [facility] E EMERGENCY 06169 KEVIN JEFFERS DEPT 7 7 PHYSICIAN VISIT S, PLLC HIGH SEVERITY& THREAT FUNCJ [facility] INPATIENT 7 7 [facility] - 7 7 [facility] OUTPATIEN E HOSPITALS OFFICE 29199 [facility] OUTPATIEN 7 7 MEDICAL T VISIT SERV 25 FOUNDATIO MINUTES N [facility] INPATIENT 7 7 [facility] E [facility] INPATIENT 6 6 [facility] E [facility] INPATIENT 6 6 [facility] - 6 6 [facility] OUTPATIEN INC T OFFICE 78770 [facility] BENAVIDES OUTPATIEN 6 6 MEDICAL T VISIT SERV 25 FOUNDATIO MINUTES [facility] 6 6 [facility] INPATIENT 6 6 [facility] - 6 6 [facility] OUTPATIEN INC T OFFICE 87577 [facility] OUTPATIEN 6 6 PHYSICIAN MAT T VISIT S GROUP 25 MINUTES [facility] 6 6 [facility] 6 [facility] 6 6 [facility] E OFFICE 80097 [facility] OUTPATIEN 6 6 PHYSICIAN MAT T VISIT S GROUP 25 MINUTES OFFICE 32799 [facility] OUTPATIEN 6 6 PHYSICIAN MAT T VISIT S GROUP 25 MINUTES HOSPITAL [facility] - 6 6 [facility] - 6 6 [facility] OUTPATIEN INC T OFFICE 20425 [facility] OUTPATIEN 6 6 PHYSICIAN MAT T VISIT S GROUP 25 MINUTES HOSPITAL MEAWVIE - 6 6 [facility] - 6 6 [facility] OUTPATIEN INC T OFFICE 50002 [facility] OUTPATIEN 6 6 CULAR MAT T VISIT CONSULTAN 25 TS O MINUTES [facility] - 5 5 [facility] OUTPATIEN INC T EMERGENCY 31013 [facility] 5 5 [facility] DEPARTMEN INC T VISIT LOW/MODER SEVERITY OFFICE 67604 [facility] OUTPATIEN 5 5 CULAR MAT T VISIT CONSULTAN 40 TS O MINUTES [facility] - 5 5 [facility] OUTPATIEN INC T OFFICE 90066 [facility] 5 5 Y T VISIT 5 [facility] 5 Y OUTPATIEN HOSPITAL T EMERGENCY 45933 [facility] 5 5 [facility] DEPARTMEN INC T VISIT MODERATE SEVERITY [facility] - 5 5 [facility]PATIEN INC T [facility] 5 5 [facility] OUTPATIEN INC T [facility] - 4 4 [facility] OUTPATIEN INC T OFFICE 71188 [place] OUTPATIEN 4 4 MEDICAL SHA T NEW 30 SERV MINUTES FOUNDATIO N OFFICE 19623 [facility] 4 4 T VISIT 10 MINUTES OFFICE 98950 [facility] 4 4 T VISIT 10 MINUTES [facility] - 4 4 [facility] OUTPATIEN INC T OFFICE 25386 ANNETTE BRYANT OUTPATIEN 4 4 DEUCE DEUCE T NEW 30 MINUTES OFFICE 07790 [facility] OUTPATIEN 4 4 PHYSICIAN JAM T VISIT S GROUP 15 MINUTES [facility]OS[facility] - 4 4 [facility] - 3 3 [facility]PATIEN INC [facility] - 3 3 [facility]PATIEN [facility] T [facility] - 3 3 [facility] OUTPATIEN INC T OFFICE 16692 [facility] OUTPAT[facility]EN 3 3 NEUROLOG[facility] 15 [place] MINUTES [facility] - 3 3 [facility] OUTPATIEN INC T [facility] - 3 3 [facility] OUTPATIEN [facility] T OFFICE 61549 MARKIE SANDERSON OUTPATIEN 3 3 FOOT AND T NEW 20 ANKLE MINUTES CENTER OFFICE 53059 [facility] GE[facility]GE OUTPATIEN 3 3 SATHYA HILLMAN T VISIT HOSPITAL 25 MINUTES EMERGENCY 13252 [facility] 3 3 [facility] T VISIT HIGH/URGE NT SEVERITY [facility]OSPITAL [facility] - 3 3 [facility] OUTPATIEN [facility] T EMERGENCY 56617 ERIC JEFFERS DEPT 3 3 MEDICAL ARMANDO VISIT GROUP, HIGH PLLC SEVERITY& THREAT FUNCJ EMERGENCY 17977 [facility] 3 3 [facility] EMERGENCY T VISIT PHYSI MODERATE SEVERITY [facility] [address] [facility] [address] T VISIT LOW/MODER SEVERITY OFFICE [address] [facility] OUT[facility]IEN 3 3 ZO BRUNO [place] T VISIT CARDIOLOG 15 Y CLINIC MINUTES [facility] - 3 3 [facility] OUTPATIEN [facility] T OFFICE 00793 Sheridan WHITMAN DORIS OUTPATIEN 2 2 DORIS HILLMAN T NEW 45 MD JANE TODD [facility] MINUTES OFFICE [address] [facility] FALLUJI OUTPATIEN 2 2 ZO TATUM T VISIT CARDIOLOG 25 Y CLINIC MINUTES [facility] - 2 2 [facility] OUTPATIEN [facility] T EMERGENCY 91225 [facility] 2 2 [facility] T VISIT MODERATE SEVERITY [facility]OSPITAL [facility] - 2 2 [facility] OUTPATIEN [facility] T HOSPITAL [facility] - 2 2 [facility]PATIEN [facility] T HOSP[facility] - 2 2 [facility] OUTPATIEN INC T EMERGENCY 29157 [facility] 2 2 [facility] VISIT HIGH/URGE NT SEVERITY EMERGENCY 24195 [facility] 2 2 [facility] VISIT LOW/MODER SEVERITY [facility]OSPITAL [facility] - 2 2 [facility] 1 1 [facility] 02492 [facility] 1 1 [facility] VISIT HIGH/URGE NT SEVERITY HOSPITAL [facility] 1 1 [facility] 1 1 [facility] 1 1 [facility] 1 1 [facility] 1 1 [facility] OFFICE 10951 [place] [facility] OUTPATIEN 1 1 [facility] 60 SERV MINUTES [facility] - 1 1 [facility] EM[facility]GENCY 75722 [facility] 1 1 [facility] VISIT HIGH/URGE NT SEVERITY EMERGENCY 36061 AMANDA JEFFERS DEPT 1 1 EMERGENCY [facility] SERVICES HIGH SEVERITY& THREAT FUNCJ OFFICE 19643 [facility] MATHIS JR OUTPATIEN 1 1 [facility] 30 HOSPITAL MINUTES P OFFICE 77075 [facility] OUTPATIEN 1 1 PRACT RONALD T [facility] 25 [place] [address] MINUTES OFFICE 81742 [facility] OUTPATIEN 1 1 PRACT RONALD T [facility]ISIT [facility] 25 [place] [address] MINUTES EMERGENCY 23779 [facility] DEPT 1 1 [facility] HIGH PHYSICANS SEVERITY& M THREAT FUNCJ
--- OUTSIDE RECORDS SUMMARY | 2017-05-30 13:21 | External Medical Summary Rpt | CCD ---
Demographics Preferred Language Citizen Of [place] Marital Status Unknown Adventist Affiliation Unknown Race Unknown Ethnic Group Unknown Author Author , GRAHAM STEVENSON Address Unknown Phone Immunization No patient found.
--- OUTSIDE RECORDS SUMMARY | 2017-05-30 13:21 | External Medical Summary Rpt | CCD ---
Demographics Preferred Language Niuean Marital Status Unknown Caodaism Affiliation Unknown Race Unknown Ethnic Group Unknown Author Author , GRAHAM STEVENSON Address Unknown Phone Immunization No patient found.
--- OUTSIDE RECORDS SUMMARY | 2017-05-30 13:21 | External Medical Summary Rpt ---
Author Author SUDHAJUAN JOSE Production, [employer] Organization [employer] Address Unknown Phone Unavailable Results Comprehensive metabolic 2000 panel in Serum or Plasma Observa Value Referen Units Interpr Notes Date tion ce etation Range Albumin/G 1.1 - 1.8 No Low No Oct 25 lobulin informati informati 2017 [Mass on in on in 12:05 PM ratio] in source source Serum or data data Plasma Albumin 3.4 - 5.0 gm/dL Low No May 25 [Mass/vol informati 2017 ume] in on in 12:05 PM Serum or source Plasma data Alkaline 46 - 116 U/L Normal No May 25 phosphata informati 2017 se on in 12:05 PM [Enzymati source c data activity/ volume] in Serum or Plasma Bilirubin 0.2 - 1.0 mg/dL Normal No May 30 .total informati 2017 [Mass/vol on in 12:05 PM ume] in source Serum or data Plasma Urea 7 - 18 mg/dL Normal No May 25 nitrogen informati 2017 [Mass/vol on in 12:05 PM ume] in source Serum or data Plasma Calcium 8.5 - mg/dL Normal No May 25 [Mass/vol 10.1 informati 2017 ume] in on in 12:05 PM Serum or source Plasma data Chloride 98 - 107 mmoL/L Low No May 25 [Moles/vo informati 2017 lume] in on in 12:05 PM Serum or source Plasma data Carbon 21.0 - mmoL/L Normal No May 25 dioxide, 32.0 informati 2017 total on in 12:05 PM [Moles/vo source lume] in data Serum or Plasma Creatinin 0.70 - mg/dL Normal No Oct 25 e 1.30 informati 2017 [Mass/vol on in 12:05 PM ume] in source Serum or data Plasma Creatinin 50 - 200 ML/MIN Normal No Oct 25 e renal informati 2017 clearance on in 12:05 PM source predicted data by Cockcroft -Gault formula Estimated >60 ML/MIN No REFERENCE Oct 25 informati RANGE: 2017 glomerula on in >60 12:05 PM r source ML/MIN/1. filtratio data 73 SQUARE n rate METERSIf (GF this patient is -A merican, then multiply theresult by 1.210. Globulin 1.3 - 3.2 gm/dL High No May 30 [Mass/vol informati 2016 ume] in on in 12:05 PM Serum source data Glucose 74 - 106 mg/dL High No May 30 [Mass/vol informati 2016 ume] in on in 12:05 PM Serum or source Plasma data Potassium 3.5 - 5.1 mmoL/L Normal No May 30 inform2016 [Moles/vo on in 12:05 PM lume] in source Serum or data Plasma Sodium 136 - 145 mmoL/L Low No May 30 [Moles/vo informati 2016 lume] in on in 12:05 PM Serum or source Plasma data Aspartate 15 - 37 U/L Low No May 302016 aminotran on in 12:05 PM sferase source [Enzymati data c activity/ volume] in Serum or Plasma Alanine 12 - 78 U/L Normal No May 30 aminotran inform2016 sferase on in 12:05 PM [Enzymati source c data activity/ volume] in Serum or Plasma Protein 6.4 - 8.2 gm/dL High No May 30 [Mass/vol informati 2016 ume] in on in 12:05 PM Serum or source Plasma data CBC W Auto Differential panel in Blood Observa Value Referen Units Interpr Notes Date tion ce etation Range Basophils 0 - 0.2 K/MM3 Normal No May 30 inform2016 [#/volume on in 12:05 PM ] in source Blood by data Automated count Basophils 0.1 - 2.0 % Normal No May 30 /100 inform2016 leukocyte on in 12:05 PM s in source Blood by data Automated count Eosinophi 0.0 - 0.4 K/mm3 Normal No May 30 ls informati 2016 [#/volume on in 12:05 PM ] in source Blood by data Automated count Eosinophi 0.1 - % Normal No May 30 ls/100 12.0 inform2016 leukocyte on in 12:05 PM s in source Blood by data Automated count Granulocy 1.3 - 8.0 K/mm3 High No May 30 pierce 2016 [#/volume on in 12:05 PM ] in source Blood by data Automated count Granulocy 37.0 - % High No May 30 pierce/100 80.0 2016 leukocyte on in 12:05 PM s in source Blood by data Automated count Hematocri 42.0 - % Low No May 30 t [Volume 52.0 informati 2016 on in 12:05 PM Fraction] source of Blood data Hemoglobi 14.1 - g/dL Low No May 30 n 18.0 informati 2016 [Mass/vol on in 12:05 PM ume] in source Blood data Lymphocyt 0.7 - 4.5 K/mm3 Normal No May 30 es informati 2016 [#/volume on in 12:05 PM ] in source Unspecifi data ed specimen by Automated count Lymphocyt 10 - 50 % Normal No May 30 es inform2016 [#/volume on in 12:05 PM ] in source Unspecifi data ed specimen by Automated count Erythrocy 27 - 31.2 pg Normal No May 30 te mean 2016 corpuscul on in 12:05 PM ar source hemoglobi data n [Entitic mass] Erythrocy 31.8 - g/dl Low No May 30 te mean 35.4 inform2016 corpuscul on in 12:05 PM ar source hemoglobi data n concentra tion [Mass/vol ume] by Automated count Erythrocy 82.2 - fl Normal No May 30 te mean 97.8 inform2016 corpuscul on in 12:05 PM ar volume source [Entitic data volume] by Automated count Monocytes 0.1 - 1.0 K/mm3 Normal No May 302016 [#/volume on in 12:05 PM ] in source Blood by data Automated count Monocytes 1.7 - 9.3 % Normal No May 30 /100 informati 2017 leukocyte on in 12:05 PM s in source Blood by data Automated count Platelet 7.4 - fl Normal No May 30 mean 10.4 inform2016 volume on in 12:05 PM [Entitic source volume] data in Blood by Automated count Platelets 142 - 424 K/mm3 High No May 30 inform2016 [#/volume on in 12:05 PM ] in source Blood data Erythrocy 4.6 - 6.2 M/mm3 Low No May 30 pierce informati 2016 [#/volume on in 12:05 PM ] in source Amniotic data fluid Erythrocy 11.5 - % Normal No Oct 25 te 17.5 informati 2016 distribut on in 12:05 PM ion width source [Entitic data volume] by Automated count Leukocyte 4.8 - K/MM3 High No Oct 25 s 10.8 informati 2016 [#/volume on in 12:05 PM ] in source Blood data Comprehensive metabolic 2000 panel in Serum or [...] ML/MIN No REFERENCE Oct 4 informati RANGE: 2016 8:47 glomerula on in >60 PM r [...] 3.5 - 5.1 mmoL/L Normal No May 092016 8:47 [Moles/vo on in PM lume] in source Serum or data Plasma Sodium 136 - 145 mmoL/L Normal No May 09 [Moles/vo ati 2016 8:47 lume] in on in PM Serum or source Plasma data Aspartate 15 - 37 U/L Low No May 092016 8:47 aminotran on in PM sferase source [Enzymati data c activity/ volume] in Serum or Plasma Alanine 12 - 78 U/L Normal No May 09 aminotran 2016 8:47 sferase on in PM [Enzymati [...] 0 - 0.2 K/MM3 Normal No May 092016 8:47 [#/volume on in PM ] in source Blood by data Automated count Basophils 0.1 - 2.0 % Normal No May 092016 8:47 leukocyte on in PM s in source Blood by data Automated count Eosinophi 0.0 - 0.4 K/mm3 Normal No May 09 ls ati 2016 8:47 [#/volume on in PM ] in source Blood by data Automated count Eosinophi 0.1 - % Normal No May 09 ls/100 12.0 inform2016 8:47 leukocyte on in PM s in source Blood by data Automated count Granulocy 1.3 - 8.0 K/mm3 High No May 09 pierce 2016 8:47 [#/volume on in PM ] in source Blood by data Automated count Granulocy 37.0 - % Normal No May 4 pierce/100 80.0 informati 2016 8:47 leukocyte on in PM s in source Blood by data Automated count Hematocri 42.0 - % Low No May 4 t [Volume 52.0 informati 2016 8:47 on in PM Fraction] source of Blood data Hemoglobi 14.1 - g/dL Low No May 4 n 18.0 informati 2016 8:47 [Mass/vol on [...] No May 09 te mean 97.8 informati 2017 8:47 corpuscul on in PM ar volume source [Entitic data volume] by Automated count Monocytes 0.1 - 1.0 K/mm3 Normal No May 4 informati 2016 8:47 [#/volume on in PM ] in source Blood by data Automated count Monocytes 1.7 - 9.3 % Normal No May 4 /100 informati 2017 8:47 leukocyte on in PM s in source Blood by data Automated count Platelet 7.4 - fl Normal No May 4 mean 10.4 informati 2017 8:47 volume on in PM [Entitic source volume] data in Blood by Automated count Platelets 142 - 424 K/mm3 Normal No May 4 informati 2017 8:47 [#/volume on in PM ] in source Blood data Erythrocy 4.6 - 6.2 M/mm3 Low No Oct 4 pierce informati 2016 8:47 [#/volume on in PM ] in source Amniotic data fluid Erythrocy 11.5 - % Normal No May 4 te 17.5 informati 2017 8:47 distribut [...] May 4 nce of informa informa informa 2016 Urine tion [...] data Glucose NEG No No No May 4 [Mass/vol informati informati informati 2017 7:33 ume] in on in on in on in PM Urine by source source source Test data data data strip Ketones NEGATIV NEG mg/dL No No May 09 E informa informa 2016 [Presen tion in tion in 7:33 PM ce] in source source Urine data data by Automat ed test strip Mucus NEGATIV NEG No No No May 4 [Presen E informa informa informa 2016 ce] [...] of 5.0 - 8.5 No Normal No Oct 4 Urine informati informati 2017 7:33 on [...] Normal No May 4 Urine informati informati 2016 7:33 on in on in PM source source data data Protein NEG mg/dL No No May 09 [Mass/vol informati informati 2016 7:33 ume] in on in on in PM Urine by source source Automated data data test strip Specific 1.005 - No Normal No May 09 gravity 1.030 informati informati 2016 7:33 of Urine on in on in [...] Bacteri 1+ O No No No Jan 09 a informa informa informa 2016 [Presen tion in tion in tion in 9:00 AM ce] in source source source Urine data data data sedimen t by Light microsc opy Bilirub NEGATIV NEG No No No Jan 09 in E informa informa informa 2017 [Presen [...] No No Ronnell 6 E informa informa 2016 [Presen tion in [...] No Ronnell 6 [Presen informa informa informa 2017 ce] in tion in tion in tion in 9:00 AM Urine source source source sedimen data data data t by Light microsc opy Nitrite NEGATIV NEG No No No Ronnell 6 E informa informa informa 2016 [Presen [...] data Epithel OCC OCC #/hpf No No Ronnell 6 ial informa informa 2017 cells.s tion in tion in 9:00 AM quamous source source data data [Presen ce] in Urine sedimen t by Microsc opy high power field Urobili 0.2 NEG E.U./dL No No Jan 09 nogen informa informa 2017 [Presen tion in tion in 9:00 AM ce] in source source Urine data data by Test strip Leukocyte O wbc/hpf No No Ronnell 6 s informati informati 2017 9:00 [#/volume [...] Jan 09 in E informa informa informa 2017 [Presen tion in tion in tion in 9:00 AM ce] in source source source Urine data data data by Test strip Erythro NEGATIV NEG No No No Jan 09 cytes E informa informa informa 2017 [Presen [...] Ketones NEGATIV NEG mg/dL No No Jan 6 E informa informa 2017 [Presen tion in tion in 9:00 AM ce] in source source Urine data data by Automat ed test strip Mucus NEGATIV NEG No No No Jan 09 [Presen E informa informa informa 2017 ce] in tion in tion in tion in 9:00 AM Urine source source source sedimen data data data t by Light microsc opy Nitrite NEGATIV NEG No No No Jan 09 E informa informa informa 2017 [Presen tion [...] data Urobili 0.2 NEG E.U./dL No No Ronnell 6 nogen informa informa 2017 [Presen tion in tion in 9:00 AM ce] in source source Urine data data by Test strip
[2017-05-30 14:06] VITALS: BP 107/68
--- NOTE | 2017-05-30 14:49 | RADIOLOGY REPORT PS360 ---
CHEST-PORTABLE HISTORY: Shortness of air SOA ORDERING PHYSICIAN: Nadine Lemus MD PATIENT AGE: 56 years COMPARISON: 09/04/2016 FINDINGS: Cardiomegaly without failure.. The lungs are clear without infiltrates, suspicious nodules, or pleural effusions. No acute bony abnormalities. IMPRESSION: Cardiomegaly otherwise negative
== END 2017-05-30 14:08 | disposition home or self-care (01) ==
LOC: ER 12:04
PROVIDERS: Emergency Medicine
DX: R07.89 Other chest pain (principal); R05 Cough; Z88.6 Allergy status to analgesic agent; I10 Essential (primary) hypertension; E78.5 Hyperlipidemia, unspecified; K21.9 Gastro-esophageal reflux disease without esophagitis; E03.9 Hypothyroidism, unspecified; E11.65 Type 2 diabetes mellitus with hyperglycemia; Z79.84 Long term (current) use of oral hypoglycemic drugs; F41.8 Other specified anxiety disorders

== ENCOUNTER → 2017-06-14 | Outpatient (CLI) | payer MEDICARE, MEDICAID ==
[2017-06-14 11:06] LABS: STOOL OCCULT BLOOD NEGATIVE (NEG)
== END ==
LOC: LAB 10:17
PROVIDERS: Emergency Medicine
DX: D64.9 Anemia, unspecified (principal)
CPT/HCPCS: G0328

== ENCOUNTER → 2017-06-15 | Outpatient (CLI) | payer MEDICARE, MEDICAID ==
--- NOTE | 2017-06-17 12:43 | RADIOLOGY REPORT PS360 ---
MRI-ABD W/WO CLINICAL INDICATION: LEFT KIDNEY NODULE ORDERING PHYSICIAN: Albert Farrell MD PATIENT AGE: 57 years TECHNIQUE: Multiplanar multiecho sequences are performed without and with contrast. COMPARISON: CT scan of 05/09/2017 FINDINGS: There is a 14 mm exophytic nodule along the lower pole the left kidney posteriorly corresponding to the CT abnormality joining T2 hyperintensity hypointense on T1. This does not demonstrate any contrast enhancement on the immediate or delayed images and is consistent with a simple renal cyst. In addition, an 11 mm rounded T2 hyperintensity is noted involving the right kidney anteriorly also suggestion a small exophytic cyst. An additional 8 mm T1 hypointense area T2 hyperintensity involve the superior pole the right kidney also suggesting a small cyst. This is somewhat less well-defined than the lesion on the left but could be due to mild motion artifact.. No suspicious renal lesions are evident. No hydronephrosis. The liver, pancreas, spleen, and gallbladder and adrenal glands have an unremarkable appearance. IMPRESSION: Bilateral renal cortical cysts. The lesion in the upper pole the right kidney is somewhat less well-defined but may be due to motion artifact. Suggest 6 month follow-up to confirm stability
== END ==
LOC: RAD 10:30
DX: N28.89 Other specified disorders of kidney and ureter (principal); D64.9 Anemia, unspecified; K22.70 Barrett's esophagus without dysplasia
CPT/HCPCS: A9576

== ENCOUNTER → 2017-07-14 | Outpatient (CLI) | payer MEDICARE, MEDICAID ==
[2017-07-14 05:08] LABS: URINE BILIRUBIN - DIPSTICK NEGATIVE (NEG); URINE BLOOD NEGATIVE (NEG)
== END ==
LOC: LAB 04:02
PROVIDERS: Emergency Medicine
DX: R10.9 Unspecified abdominal pain (principal)